=== PATIENT | male | born 1985 | race African-American/Black ===

== ENCOUNTER 2016-12-22 18:04 | Emergency (ER) | payer OTHER ==
[~2016-12-22] VITALS: Ht 160 cm; Wt 69.0 kg
[2016-12-22 18:12] VITALS: BP 114/61; PULSE 89; RESP 20; TEMP 99.2; O2SAT 98
--- NOTE | 2016-12-22 18:17 | PD ---
HPI Chief Complaint: fever Time Seen by Provider: 18:16 Travel History International Travel<30 days: No Contact w/Intl Traveler<30days: No Traveled to known affect area: No History of Present Illness HPI 31-year-old male was sent from the group home with history of fever and tachycardia. Patient is a TBI and anoxic brain injury, he is vent dependent on trach and has a J-tube for feeding. His mother is here who is a great historian and is very close in taking care of the patient. She says that for past 1 week she has noticed that there is some feed is coming out of his trach as well as his mouth. She had let the nursing staff at the group home know. They have been trying to alternate the feeds and changes positions but this afternoon he had a fever with a temperature 102.5 and heart rate in 170s. They gave him Tylenol and then sent him here. In the past she has had pneumonia as well as UTI. He is well-known to the department. [facility] Past Medical History Narrative Medical List of his past medical, surgical, social and family history is reviewed from the nursing note. Social History Tobacco Use: No Allergies-Medications (Allergen,Severity, Reaction): Coded Allergies: Haldol (Verified Adverse Reaction, Severe, Seizures, 12/22/16) Comments List of his allergies reviewed from the nursing note. Reported Meds & Prescriptions Reported Meds & Active Scripts Active Augmentin-400 Liq (Amoxicillin-Clavulanate Liq) 400-57 Mg/5 Ml Susp 875 Mg PEG Q12HR 7 Days 300 mg (3.75 mL). Take for 10 days. Reported Potassium Acetate 2 Meq/Ml Inj 20 Meq G-TUBE BID Claritin Liq (Loratadine) 5 Mg/5 Ml Liq 5 Mg G-TUBE DAILY Baclofen 20 Mg Tab 20 Mg G-TUBE TID Pepcid (Famotidine) 20 Mg Tab 40 Mg G-TUBE DAILY Eliquis (Apixaban) 5 Mg Tab 5 Mg G-TUBE BID Ativan (Lorazepam) 1 Mg Tab 1 Mg G-TUBE Q4H PRN Keppra (Levetiracetam) 1,000 Mg Tab 1,000 Mg G-TUBE BID Narrative Medication List of his home medications reviewed from the nursing Review of Systems Except as stated in HPI: all other systems reviewed are Neg Physical Exam Narrative GENERAL: Baseline mental status which is mostly nonreactive, trach and G-tube SKIN: Focused skin assessment warm/dry. HEAD: Atraumatic. Normocephalic. EYES: Pupils equal and round. No scleral icterus. No injection or drainage. ENT: No nasal bleeding or discharge. Mucous membranes pink and moist. NECK: Trachea midline. No JVD. Trach CARDIOVASCULAR: Regular rate and rhythm. No murmur appreciated. RESPIRATORY: No accessory muscle use. Clear to auscultation. Breath sounds equal bilaterally. GASTROINTESTINAL: Abdomen soft, non-tender, nondistended. Hepatic and splenic margins not palpable. G-tube MUSCULOSKELETAL: Nonverbal, nonresponsive, bedbound, TBI NEUROLOGICAL: Awake and alert. No obvious cranial nerve deficits. Motor grossly within normal limits. Normal speech. PSYCHIATRIC: Appropriate mood and affect; insight and judgment normal. Data Data Last Documented VS Vital Signs Date Time Temp Pulse Resp B/P Pulse Ox O2 Delivery O2 Flow Rate FiO2 12/23/16 08:09 98.4 63 28 106/52 99 T-piece 12/23/16 08:02 5.00 28 Orders Complete Blood Count With Diff (12/22/16 18:35) Comprehensive Metabolic Panel (12/22/16 18:35) Lactic Acid Sepsis Protocol (12/22/16 18:35) Urinalysis - C+S If Indicated (12/22/16 18:35) Blood Culture (12/22/16 18:35) Chest, Single Ap (12/22/16 18:35) Blood Glucose (12/22/16 18:35) Ecg Monitoring (12/22/16 18:35) Iv Access Insert/Monitor (12/22/16 18:35) Oximetry (12/22/16 18:35) Oxygen Administration (12/22/16 18:35) Vancomycin Inj (Vancomycin Inj) (12/22/16 18:35) Piperacil-Tazo 4.5 Gm Premix (Zosyn 4.5 (12/22/16 18:35) Sodium Chlor 0.9% 1000 Ml Inj (Ns 1000 M (12/22/16 19:00) Urine Culture (12/22/16 18:25) Tube, Trach Cuffed Fen: #8 Ea (12/22/16 20:09) Ct Abd/Pel W Iv Contrast(Rout) (12/22/16 20:55) Iohexol 350 Inj (Omnipaque 350 Inj) (12/22/16 21:50) Labs Laboratory Tests Test 12/22/16 12/22/16 18:25 18:45 Urine Color YELLOW Urine Turbidity HAZY Urine pH 6.5 Urine Specific [place] 1.022 Urine Protein 30 mg/dL Urine Glucose (UA) NEG mg/dL Urine Ketones NEG mg/dL Urine Occult Blood NEG Urine Nitrite NEG Urine Bilirubin NEG Urine Urobilinogen 2.0 MG/DL Urine Leukocyte Esterase NEG Urine RBC 2 /hpf Urine WBC 2 /hpf Urine Squamous Epithelial 1 /hpf Cells Urine Amorphous Sediment RARE Urine Bacteria RARE /hpf Urine Hyaline Casts 19 /lpf Urine Mucus FEW /lpf Microscopic Urinalysis Comment CATH-CULTURE IND Lactic Acid Level 1.7 mmol/L White Blood Count 11.1 TH/MM3 Red Blood Count 5.44 MIL/MM3 Hemoglobin 16.7 GM/DL Hematocrit 48.6 % Mean Corpuscular Volume 89.4 FL Mean Corpuscular Hemoglobin 30.8 PG Mean Corpuscular Hemoglobin 34.4 % Concent Red Cell Distribution Width 13.0 % Platelet Count 231 TH/MM3 Mean Platelet Volume 10.7 FL Neutrophils (%) (Auto) 78.9 % Lymphocytes (%) (Auto) 9.9 % Monocytes (%) (Auto) 11.0 % Eosinophils (%) (Auto) 0.0 % Basophils (%) (Auto) 0.2 % Neutrophils # (Auto) 8.8 TH/MM3 Lymphocytes # (Auto) 1.1 TH/MM3 Monocytes # (Auto) 1.2 TH/MM3 Eosinophils # (Auto) 0.0 TH/MM3 Basophils # (Auto) 0.0 TH/MM3 CBC Comment DIFF FINAL Differential Comment Sodium Level 136 MEQ/L Potassium Level 4.4 MEQ/L Chloride Level 101 MEQ/L Carbon Dioxide Level 23.9 MEQ/L Anion Gap 11 MEQ/L Blood Urea Nitrogen 14 MG/DL Creatinine 1.46 MG/DL Estimat Glomerular Filtration 69 ML/MIN Rate Random Glucose 98 MG/DL Calcium Level 9.3 MG/DL Total Bilirubin 0.3 MG/DL Aspartate Amino Transf 28 U/L (AST/SGOT) Alanine Aminotransferase 72 U/L (ALT/SGPT) Alkaline Phosphatase 122 U/L Total Protein 8.4 GM/DL Albumin 3.9 GM/DL [facility] Medical Decision Making Medical Screen Exam Complete: Yes Emergency Medical Condition: Yes Medical Record Reviewed: Yes Differential Diagnosis Sepsis, pneumonia, UTI Narrative Course 7:20 PM my suspicion is really high for aspiration pneumonia. Sepsis workup has been started. Patient has been given IV fluid and antibiotic as per sepsis protocol. Critical Care Narrative Aggregate critical care time was 30 minutes. Time to perform other separately billable procedures was not included in the critical care time. My time did not include minutes spent treating any other patients simultaneously or on activities that did not directly contribute to the patient's treatment. The services I provided to this patient were to treat and/or prevent clinically significant deterioration that could result in: Sepsis protocol I provided critical care services requiring my management, as noted below: Chart data review, documentation time, medication orders and management, vital sign assessments/reviewing monitor data, ordering and reviewing lab tests, ordering and interpreting/reviewing x-rays and diagnostic studies, care of the patient and discussion of the patient with the admitting physicians. Procedures Procedure Narrative Emergency department US guided peripheral IV was performed with patient consent. Linear probe was used in the transverse views of the peripheral vein to assist with vascular access. Left wrist IV was established with a 20-gauge catheter. EKG Prior to Arrival: No Scripts Amoxicillin-Clavulanate Liq (Augmentin-400 Liq)400-57 Mg/5 Ml [id number] Mg PEG Q12HR 7 Days Ref 0 300 mg (3.75 mL). Take for 10 days. Prov:Ana Rosa Schmidt MD 12/22/16 Vonda Pandya MD Dec 22, 2016 18:17
[2016-12-22] MEDS ORDERED: FAMO1TAB37 G-TUBE (18:25)
[2016-12-22] MEDS ORDERED: LORA-474 G-TUBE (18:25)
[2016-12-22] MEDS ORDERED: KEPP10002 G-TUBE (18:25)
[2016-12-22] MEDS ORDERED: APIX5TAB G-TUBE (18:25)
[2016-12-22 18:32] VITALS: O2SAT 100
[2016-12-22] MEDS ORDERED: CLAR5SYP2 G-TUBE (18:32)
[2016-12-22] MEDS ORDERED: [UNRECOGNIZED DRUG - CODE] G-TUBE (18:32)
[2016-12-22] MEDS ORDERED: BACL20TA G-TUBE (18:32)
[2016-12-22] MEDS ORDERED: PIPERACIL-TAZO 4.5 GM PREMIX 100 ML IV STA (18:35)
[2016-12-22] MEDS ORDERED: VANCOMYCIN INJ 1,000 MG in SODIUM CHLOR 0.9% 250 ML INJ 250 ML IV STA (18:35)
[2016-12-22 18:41] VITALS: RESP 20; O2SAT 99
[2016-12-22] MEDS ORDERED: SODIUM CHLOR 0.9% 1000 ML INJ 1,000 ML IV ONE (19:00)
--- NOTE | 2016-12-22 19:09 | RADRPT ---
EXAM DATE/TIME: 12/22/2016 18:41 [facility] COMPARISON: No previous studies available for comparison. INDICATIONS : Shortness of breath. MEDICAL HISTORY : None. SURGICAL HISTORY : Tracheostomy. ENCOUNTER: Initial ACUITY: 1 day PAIN SCORE: 0/10 LOCATION: Bilateral chest FINDINGS: Underinflated AP view of the chest demonstrates cardiac silhouette size is at the upper limits for no rmal. Tracheostomy overlies tracheal air shadow. Lungs are underinflated with likely atelectasis at t he bases. No effusion or pneumothorax is visualized. Bones and soft tissues demonstrate no acute find ing. CONCLUSION: Underinflated examination with atelectasis at the lung bases. Otherwise, no acute finding is identifi ed. Santo Benites MD on December 22, 2016 at 19:06 Board Certified Radiologist. This report was verified electronically.
--- NOTE | 2016-12-22 19:23 | PD ---
Data Data Last Documented VS Vital Signs Date Time Temp Pulse Resp B/P Pulse Ox O2 Delivery O2 Flow Rate FiO2 12/22/16 20:55 59 15 106/57 100 Trach Collar 6 12/22/16 18:32 28 12/22/16 18:12 99.2 Orders Complete Blood Count With Diff (12/22/16 18:35) Comprehensive Metabolic Panel (12/22/16 18:35) Lactic Acid Sepsis Protocol (12/22/16 18:35) Urinalysis - C+S If Indicated (12/22/16 18:35) Blood Culture (12/22/16 18:35) Chest, Single Ap (12/22/16 18:35) Blood Glucose (12/22/16 18:35) Ecg Monitoring (12/22/16 18:35) Iv Access Insert/Monitor (12/22/16 18:35) Oximetry (12/22/16 18:35) Oxygen Administration (12/22/16 18:35) Vancomycin Inj (Vancomycin Inj) (12/22/16 18:35) Piperacil-Tazo 4.5 Gm Premix (Zosyn 4.5 (12/22/16 18:35) Vascular Access Team Consult/P PRN (12/22/16 18:35) Vascular Poc Ultrasound (12/22/16 ) Sodium Chlor 0.9% 1000 Ml Inj (Ns 1000 M (12/22/16 19:00) Urine Culture (12/22/16 18:25) Tube, Trach Cuffed Fen: #8 Ea (12/22/16 20:09) Ct Abd/Pel W Iv Contrast(Rout) (12/22/16 20:55) Iohexol 350 Inj (Omnipaque 350 Inj) (12/22/16 21:50) Labs Laboratory Tests Test 12/22/16 12/22/16 18:25 18:45 Urine Color YELLOW Urine Turbidity HAZY Urine pH 6.5 Urine Specific [place] 1.022 Urine Protein 30 mg/dL Urine Glucose (UA) NEG mg/dL Urine Ketones NEG mg/dL Urine Occult Blood NEG Urine Nitrite NEG Urine Bilirubin NEG Urine Urobilinogen 2.0 MG/DL Urine Leukocyte Esterase NEG Urine RBC 2 /hpf Urine WBC 2 /hpf Urine Squamous Epithelial 1 /hpf Cells Urine Amorphous Sediment RARE Urine Bacteria RARE /hpf Urine Hyaline Casts 19 /lpf Urine Mucus FEW /lpf Microscopic Urinalysis Comment CATH-CULTURE IND Lactic Acid Level 1.7 mmol/L White Blood Count 11.1 TH/MM3 Red Blood Count 5.44 MIL/MM3 Hemoglobin 16.7 GM/DL Hematocrit 48.6 % Mean Corpuscular Volume 89.4 FL Mean Corpuscular Hemoglobin 30.8 PG Mean Corpuscular Hemoglobin 34.4 % Concent Red Cell Distribution Width 13.0 % Platelet Count 231 TH/MM3 Mean Platelet Volume 10.7 FL Neutrophils (%) (Auto) 78.9 % Lymphocytes (%) (Auto) 9.9 % Monocytes (%) (Auto) 11.0 % Eosinophils (%) (Auto) 0.0 % Basophils (%) (Auto) 0.2 % Neutrophils # (Auto) 8.8 TH/MM3 Lymphocytes # (Auto) 1.1 TH/MM3 Monocytes # (Auto) 1.2 TH/MM3 Eosinophils # (Auto) 0.0 TH/MM3 Basophils # (Auto) 0.0 TH/MM3 CBC Comment DIFF FINAL Differential Comment Sodium Level 136 MEQ/L Potassium Level 4.4 MEQ/L Chloride Level 101 MEQ/L Carbon Dioxide Level 23.9 MEQ/L Anion Gap 11 MEQ/L Blood Urea Nitrogen 14 MG/DL Creatinine 1.46 MG/DL Estimat Glomerular Filtration 69 ML/MIN Rate Random Glucose 98 MG/DL Calcium Level 9.3 MG/DL Total Bilirubin 0.3 MG/DL Aspartate Amino Transf 28 U/L (AST/SGOT) Alanine Aminotransferase 72 U/L (ALT/SGPT) Alkaline Phosphatase 122 U/L Total Protein 8.4 GM/DL Albumin 3.9 GM/DL [facility] Medical Record Reviewed: Yes Supervised Visit with SHANE: No Interpretation(s) Last Impressions Abdomen/Pelvis CT 12/22/[id number] Signed Impressions: Service Date/Time: Thursday, December 22, 2016 21:47 - CONCLUSION: No acute abnormality is identified in the abdomen or pelvis. Santo Benites MD Chest X-Ray 12/22/[id number] Signed Impressions: Service Date/Time: Thursday, December 22, 2016 18:41 - CONCLUSION: Underinflated examination with atelectasis at the lung bases. Otherwise, no acute finding is identified. Santo Benites MD Narrative Course During the course of the patients emergency department visit, the patients history, examination, and differential diagnosis were reviewed with the patient. The patient had IV access obtained and blood work sent for analysis. The patient's case is checked out to me by Dr. Pandya. Please see her complete history and physical. The patient came in with a history of tracheostomy and G-tube placement related to a traumatic brain injury, currently residing at a [facility] with recent problems of tube feeds coming out of his trach. Today he had a fever with a MAXIMUM TEMPERATURE of 102.5 promptly if visit to the emergency department. A sepsis workup with possible sources of aspiration pneumonia ensued. The patient was initially provided normal saline a 1 L IV fluid bolus, vancomycin 1 g IV, Zosyn IV. Blood cultures 2 were drawn, lactic acid was drawn. The patients laboratory studies were reviewed and remarkable for a white count of 11.1, hemoglobin 16.7, platelets 231 with neutrophils 78.9, monocytes 11, CMP is remarkable for creatinine 1.46, alkaline phosphatase 122, lactic acid 1.7 , urinalysis shows 30 protein rare bacteria, otherwise unremarkable. Radiology studies were reviewed and remarkable for a chest x-ray that shows an under inflated examination with atelectasis of the lung bases, otherwise no acute findings. CT scan of the abdomen and pelvis again showed no infiltrate on the lower lung [place], no acute abnormality is identified in the abdomen or pelvis. No evidence of obstruction. The patient has been resting comfortably during his emergency department evaluation. Vital signs are stable. Given the patient's fever and the possibility of aspiration, the patient will be treated with antibiotic coverage for possible aspiration pneumonia. The patient is stable for discharge back to his senior care facility. The patient is provided a prescription for Augmentin liquid to be administered through his feeding tube. The patients results and examination findings were discussed with the patient' s mother. The repeat examination is unremarkable and benign. The history, exam , diagnostic testing, and current condition do not suggest any significant pathology to warrant further testing, continued ED treatment, admission, or surgical evaluation at this point. The vital signs have been stable. The patient does not have uncontrollable pain, intractable vomiting, or other significant symptoms. The patient's condition is stable and appropriate for discharge. The patient will pursue further outpatient evaluation with a primary care physician or other designated or consulting physician as indicated in the discharge instructions. The patient's mother expressed understanding and was agreeable with this plan. Diagnosis Primary Impression: Febrile illness Additional Impressions: Suspected respiratory condition in not found after evaluation Aspiration into airway Qualified Code: T17.908A - Aspiration into airway, initial encounter Referrals: Primary Care Physician 2 days Patient Instructions: Fever in Adults (ED), General Instructions Med/Other Pt SpecificInfo: Prescription(s) given Scripts Amoxicillin-Clavulanate Liq (Augmentin-400 Liq)400-57 Mg/5 Ml [id number] Mg PEG Q12HR 7 Days Ref 0 300 mg (3.75 mL). Take for 10 days. Prov:Ana Rosa Schmidt MD 12/22/16 Disposition: 03 DISCHARGE TO SNF Condition: Stable Ana Rosa Schmidt MD Dec 22, 2016 19:23
[2016-12-22 19:56] LABS: AUTOMATED NEUTROPHIL # 8.8 TH/MM3 (1.8-7.7); BASOPHIL % 0.2 % (0.0-2.0); HEMATOCRIT 48.6 % (39.0-51.0); HEMO FLAGS DIFF FINAL; LYMPH % 9.9 % (9.0-44.0); LYMPHOCYTE # 1.1 TH/MM3 (1.0-4.8); MEAN CELL VOLUME 89.4 FL (80.0-100.0); MEAN CORPUSCULAR HEMOGLOBIN 30.8 PG (27.0-34.0); MEAN CORPUSCULAR HGB CONC 34.4 % (32.0-36.0); NEUT % 78.9 % (16.0-70.0); PLATELET COUNT 231 TH/MM3 (150-450); RED BLOOD COUNT 5.44 MIL/MM3 (4.50-5.90); WHITE BLOOD COUNT 11.1 TH/MM3 (4.0-11.0)
[2016-12-22 20:04] LABS: BACTERIA, URINE RARE /hpf; BLOOD, URINE NEG (NEG); GLUCOSE,URINE NEG (NEG); HYALINE CAST, URINE 19 /lpf (RARE); KETONE, URINE NEG (NEG); MUCUS URINE FEW /lpf (OCC); NITRITE,URINE NEG (NEG); PH, URINE 6.5 (5.0-8.5); SQUAMOUS EPITHELIAL CELL URINE 1 /hpf (0-5); URINE COLOR YELLOW (YELLW/STRAW)
[2016-12-22 20:05] LABS: COMMENT (UR) CATH-CULTURE IND; CULTURE IF INDICATED CATH CULTURE IND
[2016-12-22 20:08] VITALS: O2SAT 100
[2016-12-22 20:13] LABS: ANION GAP 11 MEQ/L (5-15); AST (GOT) 28 U/L (15-37); BICARBONATE 23.9 MEQ/L (21.0-32.0); BLOOD UREA NITROGEN 14 MG/DL (7-18); CHLORIDE 101 MEQ/L (98-107); GLOMERULAR FILTRATION RATE 69 ML/MIN (>89); POTASSIUM 4.4 MEQ/L (3.5-5.1); SODIUM (NA) 136 MEQ/L (136-145)
[2016-12-22 20:14] LABS: ALT (GPT) 72 U/L (12-78)
[2016-12-22 20:16] LABS: ALKALINE PHOSPHATASE 122 U/L (45-117); TOTAL BILIRUBIN ADULT 0.3 MG/DL (0.2-1.0)
[2016-12-22 20:55] VITALS: BP 106/57; PULSE 59; RESP 15; O2SAT 100
[2016-12-22] MEDS ORDERED: IOHEXOL 350 MG/ML 10 ML VIAL (for RAD DIAG) IV ONE (21:50)
--- NOTE | 2016-12-22 22:23 | RADRPT ---
EXAM DATE/TIME: 12/22/2016 21:47 [facility] COMPARISON: No previous studies available for comparison. INDICATIONS : Fever today. IV CONTRAST: 100 cc Omnipaque 350 (iohexol) IV ORAL CONTRAST: No oral contrast ingested. RADIATION DOSE: 10.89 CTDIvol (mGy) MEDICAL HISTORY : Seizures. Anoxic brain injury. SURGICAL HISTORY : Tracheostomy. Gastromy. ENCOUNTER: Initial ACUITY: 1 day PAIN SCALE: 3/10 LOCATION: Bilateral abdomen TECHNIQUE: Volumetric scanning of the abdomen and pelvis was performed. Using automated exposure control and ad justment of the mA and/or kV according to patient size, radiation dose was kept as low as reasonably achievable to obtain optimal diagnostic quality images. FINDINGS: LOWER LUNGS: The visualized lower lungs are clear. LIVER: Homogeneous density without lesion. There is no dilation of the biliary tree. No calcified gallston es. SPLEEN: Normal size without lesion. PANCREAS: Within normal limits. KIDNEYS: Normal in size and shape. There is no mass, stone or hydronephrosis. ADRENAL GLANDS: Within normal limits. VASCULAR: There is no aortic aneurysm. BOWEL/MESENTERY: The stomach, small bowel, and colon demonstrate no acute abnormality. There is no free intraperitone al air or fluid. GJ tube is present. Distal tip of the J-tube is in the proximal jejunum. ABDOMINAL WALL: Within normal limits. RETROPERITONEUM: There is no lymphadenopathy. BLADDER: No wall thickening or mass. REPRODUCTIVE: Within normal limits. INGUINAL: There is no lymphadenopathy or hernia. MUSCULOSKELETAL: No acute abnormality. CONCLUSION: No acute abnormality is identified in the abdomen or pelvis. Santo Benites MD on December 22, 2016 at 22:18 Board Certified Radiologist. This report was verified electronically.
[2016-12-22] MEDS ORDERED: AUGM400S PEG (22:36)
[2016-12-23 08:02] VITALS: O2SAT 98
[2016-12-23 08:09] VITALS: BP 106/52; PULSE 63; RESP 28; TEMP 98.4; O2SAT 99
== END 2016-12-23 09:28 ==
LOC: NEPE 18:04
DX: R50.9 Fever, unspecified (principal); T17.908A Unspecified foreign body in respiratory tract, part unspecified causing other injury, initial encounter; R00.0 Tachycardia, unspecified; Z87.820 Personal history of traumatic brain injury; Z79.899 Other long term (current) drug therapy
CPT/HCPCS: 71010; 74177; 80053; 81001; 83605; 85025; 87040; 87086; 96365; 99291; A7521; J2543; J3370; J7030; J7050; Q9967

== ENCOUNTER 2017-02-21 03:23 | Inpatient (IN) | payer OTHER ==
[2017-02-21] VITALS (20 sets, daily range): BP systolic 141–164; BP diastolic 67–103; PULSE 20–124; RESP 18–36; TEMP 99–101.5; O2SAT 97–100
[~2017-02-21] VITALS: Ht 160 cm; Wt 65.5 kg
[~2017-02-21 03:23] MED LIST: APIX5TAB G-TUBE; AUGM400S PEG; BACL20TA G-TUBE; CLAR5SYP2 G-TUBE; FAMO1TAB37 G-TUBE; KEPP10002 G-TUBE; LORA-474 G-TUBE; [UNRECOGNIZED DRUG - CODE] G-TUBE
[2017-02-21] MEDS ORDERED: PIPERACIL-TAZO 4.5 GM PREMIX 100 ML IV ONE (03:45)
[2017-02-21] MEDS ORDERED: ACETAMINOPHEN 650 MG SUPP RECTAL ONE (03:45)
[2017-02-21] MEDS ORDERED: SODIUM CHLOR 0.9% 1000 ML INJ 1,000 ML IV ONE ×4 (03:45→15:30)
[2017-02-21] MEDS ORDERED: VANCOMYCIN INJ 1,000 MG in SODIUM CHLOR 0.9% 250 ML INJ 250 ML IV ONE (03:45)
--- NOTE | 2017-02-21 03:47 | PD ---
HPI Chief Complaint: Respiratory Symptoms Time Seen by Provider: 03:39 Travel History International Travel<30 days: No Contact w/Intl Traveler<30days: No Traveled to known affect area: No History of Present Illness HPI 31-year-old male with hypoxic encephalopathy, permanent vegetative state who lives in a fpc, trach dependent and G-tube dependent was brought to the emergency room by EMS for copious amount of secretion from the trach. Patient has been in the emergency room multiple times in the past. His mother came soon after patient arrival. As per her patient has been having increased secretion from the trach for past 1 week. Since yesterday he started getting some fever and was started on antibiotic. However tonight his heart rate went up and they decided to send him to the emergency room. Patient is a full code. He has had pneumonia and sepsis in the past. In fact patient was hit in the emergency room few weeks ago for pneumonia. He is tachycardic and the rectal temperature 101.2. PFSH Past Medical History Narrative Medical List of her past medical, surgical, social and family history was reviewed from the nursing note. Anxiety: Yes Diminished Hearing: No Gastrointestinal Disorders: Yes (GASTROSTOMY STATUS ) Hypertension: Yes Neurologic: Yes (ANOXIC BRAIN DAMAGE) Respiratory: Yes (TRACHEOSTOMY STATUS) Seizures: Yes (POST TRAUMATIC SEIZURE) Tetanus Vaccination: Unknown Influenza Vaccination: No Past Surgical History Abdominal Surgery: Yes (GASTROSTOMY) Other Surgery: Yes (TRACHEOSTOMY ) Social History Alcohol Use: No Tobacco Use: No Substance Use: No Allergies-Medications (Allergen,Severity, Reaction): Coded Allergies: haloperidol (Unverified Adverse Reaction, Severe, Seizures, 02/21/17) Comments List of his allergies reviewed from the nursing note. Reported Meds & Prescriptions Reported Meds & Active Scripts Active Reported Tylenol (Acetaminophen) 325 Mg Tab 650 Mg PO Q6H PRN Potassium Chloride Liq (Potassium Chloride) 20 Meq/15 Ml Soln 20 Meq PO BID Oxycodone-Acetaminophen 5-325 mg Tab 1 Tab PO Q6H PRN Metoprolol Tartrate 25 Mg Tab 25 Mg PO BID PRN Duoneb (Ipratropium-Albuterol Neb) 0.5-2.5 Mg/3 Ml Neb 1 Nebule INH DAILY Duoneb (Ipratropium-Albuterol Neb) 0.5-2.5 Mg/3 Ml Neb 1 Nebule INH Q4HR NEB Hyoscyamine (Hyoscyamine Sulfate) 0.125 Mg Tab 0.125 Mg PO Q4H Guaifenesin Liq (Guaifenesin) 100 mg/5 ML Soln 100 Mg PO Q4H PRN Ciloxan Opth Drops (Ciprofloxacin HCl) 0.3% Soln 1 Drop EACH EYE Q4H Bisacodyl EC (Bisacodyl) 5 Mg Tabec 5 Mg PO DAILY PRN Atropine Opth Drops 1% Soln 1 Drop SL Q12HR PRN Ativan (Lorazepam) 0.5 Mg Tab 0.5 Mg PO DAILY PRN Claritin Liq (Loratadine) 5 Mg/5 Ml Liq 5 Mg G-TUBE DAILY Baclofen 20 Mg Tab 20 Mg G-TUBE TID Pepcid (Famotidine) 20 Mg Tab 40 Mg G-TUBE DAILY Eliquis (Apixaban) 5 Mg Tab 5 Mg G-TUBE BID Ativan (Lorazepam) 1 Mg Tab 1 Mg G-TUBE Q4H PRN Keppra (Levetiracetam) 1,000 Mg Tab 1,000 Mg G-TUBE BID Narrative Medication List of his home medications reviewed from the nursing note. Review of Systems Except as stated in HPI: all other systems reviewed are Neg Physical Exam Narrative GENERAL: Nonverbal, permanent vegetative state, diaphoretic SKIN: Warm and Diaphoretic HEAD: Atraumatic. Normocephalic. EYES: Pupils equal and round. No scleral icterus. No injection or drainage. ENT: No nasal bleeding or discharge. Mucous membranes pink and moist. NECK: Trachea midline. No JVD. Tracheostomy tube with copious brownish secretions CARDIOVASCULAR: Regular rate and rhythm. No murmur appreciated. RESPIRATORY: No accessory muscle use. Clear to auscultation. Breath sounds equal bilaterally. GASTROINTESTINAL: Abdomen soft, non-tender, nondistended. Hepatic and splenic margins not palpable. G-tube MUSCULOSKELETAL: No obvious deformities. No clubbing. No cyanosis. No edema. NEUROLOGICAL: GCS of 3. Nonverbal, contracture of all 4 extremities PSYCHIATRIC: Unable to assess Data Data Last Documented VS Vital Signs Date Time Temp Pulse Resp B/P (MAP) Pulse Ox O2 Delivery O2 Flow Rate FiO2 02/21/17 04:40 106 36 141/77 (98) 98 Blow-by 7 02/21/17 04:05 40 Orders Orders Complete Blood Count With Diff (02/21/17 03:39) Comprehensive Metabolic Panel (02/21/17 03:39) Lactic Acid Sepsis Protocol (02/21/17 03:39) Urinalysis - C+S If Indicated (02/21/17 03:39) Blood Culture (02/21/17 03:39) Chest, Single Ap (02/21/17 03:39) Blood Glucose (02/21/17 03:39) Ecg Monitoring (02/21/17 03:39) Iv Access Insert/Monitor (02/21/17 03:39) Oximetry (02/21/17 03:39) Oxygen Administration (02/21/17 03:39) Sputum Culture And Gram Stain (02/21/17 03:39) Piperacil-Tazo 4.5 Gm Premix (Zosyn 4.5 (02/21/17 03:45) Vancomycin Inj (Vancomycin Inj) (02/21/17 03:45) Sodium Chlor 0.9% 1000 Ml Inj (Ns 1000 M (02/21/17 03:45) Sodium Chlor 0.9% 1000 Ml Inj (Ns 1000 M (02/21/17 03:45) Sodium Chlor 0.9% 1000 Ml Inj (Ns 1000 M (02/21/17 03:45) Acetaminophen Supp (Tylenol Supp) (02/21/17 03:45) Urinary Catheter Insert/Apply (02/21/17 04:05) Admit Order (Ed Use Only) (02/21/17 04:49) Labs Laboratory Tests Test 02/21/17 03:45 02/21/17 04:10 White Blood Count 14.5 TH/MM3 Red Blood Count 5.15 MIL/MM3 Hemoglobin 16.3 GM/DL Hematocrit 47.4 % Mean Corpuscular Volume 92.0 FL Mean Corpuscular Hemoglobin 31.7 PG Mean Corpuscular Hemoglobin Concent 34.5 % Red Cell Distribution Width 12.9 % Platelet Count 266 TH/MM3 Mean Platelet Volume 11.1 FL Neutrophils (%) (Auto) 84.5 % Lymphocytes (%) (Auto) 8.9 % Monocytes (%) (Auto) 6.3 % Eosinophils (%) (Auto) 0.1 % Basophils (%) (Auto) 0.2 % Neutrophils # (Auto) 12.2 TH/MM3 Lymphocytes # (Auto) 1.3 TH/MM3 Monocytes # (Auto) 0.9 TH/MM3 Eosinophils # (Auto) 0.0 TH/MM3 Basophils # (Auto) 0.0 TH/MM3 CBC Comment DIFF FINAL Differential Comment Blood Urea Nitrogen 11 MG/DL Creatinine 1.30 MG/DL Random Glucose 117 MG/DL Total Protein 8.6 GM/DL Albumin 4.0 GM/DL Calcium Level 9.3 MG/DL Alkaline Phosphatase 117 U/L Aspartate Amino Transf (AST/SGOT) 45 U/L Alanine Aminotransferase (ALT/SGPT) 106 U/L Total Bilirubin 0.3 MG/DL Sodium Level 141 MEQ/L Potassium Level 3.6 MEQ/L Chloride Level 104 MEQ/L Carbon Dioxide Level 24.1 MEQ/L Anion Gap 13 MEQ/L Estimat Glomerular Filtration Rate 79 ML/MIN Lactic Acid Level 4.1 mmol/L Urine Color YELLOW Urine Turbidity CLEAR Urine pH 6.5 Urine Specific [place] 1.050 Urine Protein 30 mg/dL Urine Glucose (UA) NEG mg/dL Urine Ketones TRACE mg/dL Urine Occult Blood NEG Urine Nitrite NEG Urine Bilirubin NEG Urine Urobilinogen 2.0 MG/DL Urine Leukocyte Esterase NEG Urine RBC 2 /hpf Urine WBC 2 /hpf Urine Renal Epithelial Cells <1 /hpf Urine Mucus FEW /lpf Microscopic Urinalysis Comment CULT NOT INDICATED MDM Medical Decision Making Medical Screen Exam Complete: Yes Emergency Medical Condition: Yes Medical Record Reviewed: Yes Differential Diagnosis Sepsis, pneumonia, tracheitis, UTI Narrative Course 4:36 AM blood test results are back. Patient has leukocytosis as well as lactic acidosis. I have ordered cultures from the trach secretion. Fluid and antibiotic has been given as per sepsis protocol. He'll need to be hospitalized. Awaiting for the integration director to call back since patient is a full code. Critical Care Narrative Aggregate critical care time was 30 minutes. Time to perform other separately billable procedures was not included in the critical care time. My time did not include minutes spent treating any other patients simultaneously or on activities that did not directly contribute to the patient's treatment. The services I provided to this patient were to treat and/or prevent clinically significant deterioration that could result in: Sepsis, sepsis protocol I provided critical care services requiring my management, as noted below: Chart data review, documentation time, medication orders and management, vital sign assessments/reviewing monitor data, ordering and reviewing lab tests, ordering and interpreting/reviewing x-rays and diagnostic studies, care of the patient and discussion of the patient with the admitting physicians. Procedures EKG Prior to Arrival: No Physician Communication Physician Communication Dr. Rivers Diagnosis Primary Impression: Sepsis Additional Impressions: Tracheitis Hypoxic encephalopathy Permanent vegetative state Admitting Information Admitting Physician Requests: Admit Vonda Pandya MD Feb 21, 2017 03:47
[2017-02-21 04:07] LABS: AUTOMATED NEUTROPHIL # 12.2 TH/MM3 (1.8-7.7); BASOPHIL % 0.2 % (0.0-2.0); EOSINOPHIL % 0.1 % (0.0-4.0); HEMATOCRIT 47.4 % (39.0-51.0); HEMO FLAGS DIFF FINAL; LYMPH % 8.9 % (9.0-44.0); LYMPHOCYTE # 1.3 TH/MM3 (1.0-4.8); MEAN CORPUSCULAR HEMOGLOBIN 31.7 PG (27.0-34.0); MEAN CORPUSCULAR HGB CONC 34.5 % (32.0-36.0); MONO % 6.3 % (0.0-8.0); NEUT % 84.5 % (16.0-70.0); PLATELET COUNT 266 TH/MM3 (150-450); RED BLOOD COUNT 5.15 MIL/MM3 (4.50-5.90); RED CELL DISTRIBUTION WIDTH 12.9 % (11.6-17.2); WHITE BLOOD COUNT 14.5 TH/MM3 (4.0-11.0)
[2017-02-21 04:21] LABS: ALT (GPT) 106 U/L (12-78); ANION GAP 13 MEQ/L (5-15); AST (GOT) 45 U/L (15-37); BICARBONATE 24.1 MEQ/L (21.0-32.0); BLOOD UREA NITROGEN 11 MG/DL (7-18); CHLORIDE 104 MEQ/L (98-107); GLOMERULAR FILTRATION RATE 79 ML/MIN (>89); POTASSIUM 3.6 MEQ/L (3.5-5.1); SODIUM (NA) 141 MEQ/L (136-145)
[2017-02-21 04:23] LABS: ALKALINE PHOSPHATASE 117 U/L (45-117); TOTAL BILIRUBIN ADULT 0.3 MG/DL (0.2-1.0)
[2017-02-21 04:51] LABS: BLOOD, URINE NEG (NEG); GLUCOSE,URINE NEG (NEG); KETONE, URINE TRACE mg/dL (NEG); MUCUS URINE FEW /lpf (OCC); NITRITE,URINE NEG (NEG); PH, URINE 6.5 (5.0-8.5); RENAL EPITHELIAL CELLS <1 /hpf; URINE COLOR YELLOW (YELLW/STRAW)
[2017-02-21 04:52] LABS: COMMENT (UR) CULT NOT INDICATED; CULTURE IF INDICATED CULT NOT INDICATED
[2017-02-21] MEDS ORDERED: POTA10SO12 PO (04:56)
[2017-02-21] MEDS ORDERED: METO25TA3 PO (04:56)
[2017-02-21] MEDS ORDERED: HYOS0.128 PO (04:56)
[2017-02-21] MEDS ORDERED: CILO0.3S EACH EYE (04:56)
[2017-02-21] MEDS ORDERED: IPRASOL INH ×2 (04:56)
[2017-02-21] MEDS ORDERED: GUAI100S7 PO (04:56)
[2017-02-21] MEDS ORDERED: TYLE325T PO (04:56)
[2017-02-21] MEDS ORDERED: ATRO1SOL11 SL (04:56)
[2017-02-21] MEDS ORDERED: LORA-392 PO (04:56)
[2017-02-21] MEDS ORDERED: FLEE5TAB PO (04:56)
[2017-02-21] MEDS ORDERED: OXYC1TAB63 PO (04:56)
--- NOTE | 2017-02-21 05:06 | RADRPT ---
EXAM DATE/TIME: 02/21/2017 04:42 [facility] COMPARISON: CHEST SINGLE AP, December 22, 2016, 18:41. INDICATIONS : Fever, Evalaute trach MEDICAL HISTORY : None. SURGICAL HISTORY : Tracheostomy ENCOUNTER: Initial ACUITY: 1 day PAIN SCORE: Non-responsive. LOCATION: Bilateral chest FINDINGS: A single view of the chest demonstrates the lungs to be symmetrically aerated without evidence of mas s, infiltrate or effusion. Heart size is borderline prominent a well compensated. Tracheostomy tube i s stable in position with the tip just above the clavicular heads. Osseous structures are intact. CONCLUSION: 1. Lungs are clear. 2. Heart size is borderline prominent but well compensated. Beny Whalen MD on February 21, 2017 at 5:04 Board Certified Radiologist. This report was verified electronically.
[2017-02-21 05:37] LABS: BLOOD GAS CARBOXYHEMOGLOBIN 0.7 % (0-4); BLOOD GAS HCO3 23 mmol/L (22-26); BLOOD GAS METHEMOGLOBIN 0.6 % (0-2); BLOOD GAS O2 HGB SATURATION 97 % (90-100); BLOOD GAS OXYGEN CONTENT 20.5 Vol % (12.0-20.0); BLOOD GAS PCO2 35 mmHg (38-42); BLOOD GAS PO2 123 mmHG (61-120); BLOOD GAS TOTAL HGB 14.8 G/DL (12.0-16.0); CRITICAL VALUE NO; OXYGEN DEVICE TRACH COLLAR; TEMP CORR TO 98.6
[2017-02-21 05:38] LABS: DRAW SITE RT RADIAL; FIO2 40 %; LITER FLOW 6 L/M; NUMBER OF ARTERIAL PUNCTURES 1; STAT YES; ULNAR PULSE PRESENT
[2017-02-21 06:00] LABS: LACTIC ACID GHOST NOT REPORTABLE
[2017-02-21] MEDS ORDERED: LORazepam 2 MG/ML VIAL IV PUSH ONE (06:00)
[2017-02-21] MEDS ORDERED: metroNIDAZOLE 500 MG INJ 100 ML IV SCH (06:00)
[2017-02-21] MEDS ORDERED: SODIUM CHLOR 0.9% 1000 ML INJ 1,000 ML IV SCH (06:01)
--- NOTE | 2017-02-21 06:12 | HHI.HP ---
[facility] Service Critical Care Medicine Primary Care Physician Unknown Admission Diagnosis sepsis, tracheitis, hypoxic encephalopathy Diagnosis: (1) History of DVT (deep vein thrombosis) Diagnosis: Secondary (2) Nausea & vomiting Diagnosis: Principal (3) Diabetes mellitus Diagnosis: Principal (4) Dyslipidemia Diagnosis: Secondary (5) Hypertension Diagnosis: Secondary (6) History of pancreatitis Diagnosis: Secondary (7) Leukocytosis Diagnosis: Principal (8) Elevated LFTs Diagnosis: Principal (9) Hypoxic encephalopathy Diagnosis: Secondary (10) Permanent vegetative state Diagnosis: Secondary (11) Sepsis Diagnosis: Principal (12) Aspiration into airway Diagnosis: Principal (13) Septic shock Diagnosis: Principal Travel History International Travel<30 Days: No Contact w/Intl Traveler <30 Da: No Traveled to Known Affected Are: No Sepsis Criteria SIRS Criteria (2 or more): RR > 20 or PaCO2 < 32, WBC > 77024, < 4000 or > 10 % bands Sepsis Criteria (SIRS+source): Infect source susp/known Severe Sepsis (+one): Lactate >2 Septic Shock Criteria: Lactic acid >=4 History of Present Illness 31-year-old male. Resident of [facility] [employer] [facility] or rehabilitation. Past medical history includes anoxic brain injury 03/21 Temovate due to Haldol administration, recurrent aspiration pneumoniaMDRO positive MRSA positive ESBL positive Escherichia coli in past, hypertension, dyslipidemia, history of pseudocyst/necrotizing, diabetes mellitus presents with a one-week history of nausea/vomiting according to his mother at this nursing facility. He was also recently diagnosed with a fever started on amoxicillin Upon presentation to the ED, patient was noted of temperature 100.2. Leukocytosis 14.5 and elevated transaminases. Lactic acid 4.1. Received 3 L normal saline. Start empirically on piperacillin/tazobactam and vancomycin. Pancultured. Chest x-ray revealed no acute findings. CT abdomen/pelvis and amylase lipase all pending. Upon presentation the floor, patient was tachycardic in acute cluster distress. Tracheostomy was exchanged for an 8.0-6.0 Shiley. Patient is currently sedated on the ventilator on Midazolam And fentanyl drips. Review of Systems ROS Limitations: Clinical Condition, Altered Mental Status, Unresponsive Past Family Social History Allergies: Coded Allergies: haloperidol (Unverified Adverse Reaction, Severe, Seizures, 02/21/17) Past Medical History Chronic tracheostomy Chronic NOAC use History of left upper extremity DVT Recurrent aspiration pneumonia Hypertension Dyslipidemia History of pancreatitis/pseudocyst Diabetes mellitus Chronic narcotic use Chronic muscle relaxant use Past Surgical History Status post tracheostomy with revision by Dr. Walls 2016 Status post GJ tube Reported Medications Augmentin-400 Liq (Amoxicillin-Clavulanate Liq) 400-57 Mg/5 Ml Susp 875 Mg PEG Q12HR 7 Days 300 mg (3.75 mL). Take for 10 days. Reported Potassium Acetate 2 Meq/Ml Inj 20 Meq G-TUBE BID Claritin Liq (Loratadine) 5 Mg/5 Ml Liq 5 Mg G-TUBE DAILY Baclofen 20 Mg Tab 20 Mg G-TUBE TID Pepcid (Famotidine) 20 Mg Tab 40 Mg G-TUBE DAILY Eliquis (Apixaban) 5 Mg Tab 5 Mg G-TUBE BID Ativan (Lorazepam) 1 Mg Tab 1 Mg G-TUBE Q4H PRN Keppra (Levetiracetam) 1,000 Mg Tab 1,000 Mg G-TUBE BID Active Ordered Medications Reviewed in EMR Family History Mother is alive with no medical problems. Social History No tobacco, alcohol or IV drug use Physical Exam Vital Signs Vital Signs Date Time Temp Pulse Resp B/P Pulse Ox O2 Delivery O2 Flow Rate FiO2 02/21/17 04:40 106 36 141/77 98 Blow-by 7 02/21/17 04:05 97 Trach Collar 6.00 40 02/21/17 03:50 98 Blow-by 15 02/21/17 03:50 36 98 Blow-by 15 02/21/17 03:35 117 36 141/83 99 Blow-by 7 Physical Exam GENERAL: 31-year-old -[place] male, critically ill currently resting in bed ventilator via tracheostomy SKIN: Cool and dry. No rash. HEAD: Atraumatic. Normocephalic. EYES: Pupils equal and round about 3 Mckeon's bilaterally in upward gaze.. No scleral icterus. No injection or drainage. ENT: No nasal bleeding or discharge. Mucous membranes pink and moist. NECK: Trachea midline. No JVD. Thick brown secretions around trach site. Some bright red blood status post tracheostomy exchange CARDIOVASCULAR: Cardiac, RRR. S1, S2 no S4. RESPIRATORY: Coarse breath sounds appreciated throughout. GASTROINTESTINAL: Abdomen soft, non-tender, nondistended. GJ tube in left upper quadrant is clean dry and intact MUSCULOSKELETAL: Contracted. Extremities without difficulty and peripheral edema. Decubitus ulcers NEUROLOGICAL: GCS 8t. Positive cough/gag. Positive corneal reflex. Spontaneously moves but not to command. Laboratory Laboratory Tests Test 02/21/17 02/21/17 02/21/17 03:45 04:10 05:22 White Blood Count 14.5 Red Blood Count 5.15 Hemoglobin 16.3 Hematocrit 47.4 Mean Corpuscular Volume 92.0 Mean Corpuscular Hemoglobin 31.7 Mean Corpuscular Hemoglobin 34.5 Concent Red Cell Distribution Width 12.9 Platelet Count 266 Mean Platelet Volume 11.1 Neutrophils (%) (Auto) 84.5 Lymphocytes (%) (Auto) 8.9 Monocytes (%) (Auto) 6.3 Eosinophils (%) (Auto) 0.1 Basophils (%) (Auto) 0.2 Neutrophils # (Auto) 12.2 Lymphocytes # (Auto) 1.3 Monocytes # (Auto) 0.9 Eosinophils # (Auto) 0.0 Basophils # (Auto) 0.0 CBC Comment DIFF FINAL Differential Comment Sodium Level 141 Potassium Level 3.6 Chloride Level 104 Carbon Dioxide Level 24.1 Anion Gap 13 Blood Urea Nitrogen 11 Creatinine 1.30 Estimat Glomerular Filtration 79 Rate Random Glucose 117 Lactic Acid Level 4.1 Calcium Level 9.3 Total Bilirubin 0.3 Aspartate Amino Transf 45 (AST/SGOT) Alanine Aminotransferase 106 (ALT/SGPT) Alkaline Phosphatase 117 Total Protein 8.6 Albumin 4.0 Urine Color YELLOW Urine Turbidity CLEAR Urine pH 6.5 Urine Specific [place] 1.050 Urine Protein 30 Urine Glucose (UA) NEG Urine Ketones TRACE Urine Occult Blood NEG Urine Nitrite NEG Urine Bilirubin NEG Urine Urobilinogen 2.0 Urine Leukocyte Esterase NEG Urine RBC 2 Urine WBC 2 Urine Renal Epithelial Cells <1 Urine Mucus FEW Microscopic Urinalysis Comment CULT NOT INDICATED Blood Gas Puncture Site RT RADIAL Blood Gas Patient Temperature 98.6 Blood Gas HCO3 23 Blood Gas Base Excess -1.0 Blood Gas Oxygen Saturation 97 Arterial Blood pH 7.43 Arterial Blood Partial 35 Pressure CO2 Arterial Blood Partial 123 Pressure O2 Arterial Blood Oxygen Content 20.5 Arterial Blood 0.7 Carboxyhemoglobin Arterial Blood Methemoglobin 0.6 Blood Gas Hemoglobin 14.8 Oxygen Delivery Device TRACH COLLAR Blood Gas Liter Flow 6 Blood Gas Inspired Oxygen 40 Date/Time Procedure Status Source Growth 02/21/17 03:55 Gram Stain Received Sputum Endotracheal Pending 02/21/17 03:55 Sputum Culture Received Sputum Endotracheal Pending 02/21/17 03:45 Aerobic Blood Culture Received Blood Peripheral Pending 02/21/17 03:45 Anaerobic Blood Culture Received Blood Peripheral Pending Result Diagram: 02/21/17 0345 02/21/17 0345 Imaging Last Impressions Chest X-Ray 02/21/17 0339 Signed Impressions: Service Date/Time: Tuesday, February 21, 2017 04:42 - CONCLUSION: 1. Lungs are clear. 2. Heart size is borderline prominent but well compensated. Beny Whalen MD Assessment and Plan Assessment and Plan Neuro/Psych: History of anoxic brain injury Chronic muscle relaxant use Seizure disorder NOS Continue levetiracetam 1000 mg by PEG tube twice a day Seizure precautions Continue baclofen 20 mg 3 times a day/home medication for spasticity Currently in Versed drip/fentanyl drip for sedation/analgesia while on ventilator via tracheostomy Goal of RA SS -2 Daily sedation vacation Previously on oxycodone/acetaminophen 5/325 every 4 hours when necessary pain CV: Sinus tachycardia History of hypertension History dyslipidemia Lactic acidosis Status post 3 L normal saline in ED. Currently on normal saline at 125 cc an hour Serial lactates until cleared No indication for anti-hypertensives and/or vasopressors at this time. Troponin/CPK pending Resp: Acute respiratory failure secondary to aspiration pneumonia Status post tracheostomy PRVC 18/500/1/5/100 Ventilator bundle Albuterol/ipratropium every 4 hours aerosols with albuterol nebulizers every 2 hours. Dyspnea Wean as clinically indicated Wean FiO2 as clinically indicated Chest x-ray 02/21 reveal no acute cardio pulmonary findings. GI: Nausea/vomiting Elevated transaminases History pancreatitis/pseudocyst Follow-up on CT abdomen/pelvis and amylase/lipase. Patient is currently nothing by mouth Pantoprazole for GI prophylaxis. On famotidine 40 mg daily as nursing facility Docusate sodium/senna twice a day for bowel regimen Repeat transaminases in a.m. G-tube to low intermittent wall suction. Medications per J-tube. : Ospina catheter is in place for accurate I's and O's in a critically ill patient Endo: Diabetes mellitus Sliding-scale insulin with Novulog with Accu-Cheks to maintain euglycemia/low regimen every 6 hours Renal: Creatinine currently within normal limits Monitor urine output Accurate I's and O's Heme: Leukocytosis Follow-up coags. Follow up CBC in AM. Monitor trends ID: History ESBL positive Escherichia coli MDRO positive History MRSA Currently on Zosyn/azithromycin and vancomycin a #1 Blood cultures 2, UA, sputum, Legionella pneumococcal urinary antigen, influenza all pending Infectious disease consul placed MSK: Muscle contractures Continue baclofen 20 mg 3 times a day PT evaluate and treat FEN: Replacing electrolytes as clinically indicated Access - Utilize peripheral IV. Central line if indicated Prophylaxis - GI - pantoprazole - DVT - SCD/resume Apixaban 24 hours status post tracheostomy exchange due to current hemoptysis Critical Care: The total critical care time was 55 minutes. Time to perform other separately billable procedures was not included in the critical care time. Code Status Full code Discussed Condition With Diamond Andersen Mother at bedside. Care plan discussed and all questions answered. Problem Qualifiers (1) Nausea & vomiting: Qualified Code: R11.2 - Nausea and vomiting, intractability of vomiting not specified, unspecified vomiting type (2) Diabetes mellitus: Qualified Code: E11.8 - Type 2 diabetes mellitus with complication, without long-term current use of insulin (3) Leukocytosis: Qualified Code: D72.829 - Leukocytosis, unspecified type (4) Sepsis: Qualified Code: A41.9 - Sepsis, due to unspecified organism (5) Aspiration into airway: Qualified Code: T17.908A - Aspiration into airway, initial encounter Curtis Mantilla MD Feb 21, 2017 06:12
[2017-02-21] MEDS ORDERED: RESP: ALBUTEROL 2.5 MG/3 ML NEB (PRN) INH ×2 (06:15)
[2017-02-21] MEDS ORDERED: LACTULOSE SYRUP 20 GM/30 ML CUP PO PRN (06:15)
[2017-02-21] MEDS ORDERED: BISACODYL 10 MG SUPP RECTAL PRN ×2 (06:15)
[2017-02-21] MEDS ORDERED: SODIUM CHLORIDE 0.9% FLUSH 10 ML FLUSH IV FLUSH PRN ×2 (06:15)
[2017-02-21] MEDS ORDERED: MISCELLANEOUS NURSING INFORMATION XX SCH ×2 (06:15)
[2017-02-21] MEDS ORDERED: Vancomycin Consult Pharmacy 1 EA OTHER SCH (06:15)
[2017-02-21] MEDS ORDERED: CHLORHEXIDINE GLUCONATE 2 % 1 PACK (2 CLOTHS) TOP PRN ×2 (06:15)
[2017-02-21] MEDS ORDERED: SENNOSIDES 8.6 MG TAB PO PRN ×2 (06:15)
[2017-02-21] MEDS ORDERED: ACETAMINOPHEN 325 MG TAB PEG PRN (06:15)
[2017-02-21] MEDS ORDERED: MAGNESIUM HYDROXIDE SUSP 30 ML CUP PO PRN ×2 (06:15)
[2017-02-21] MEDS ORDERED: ONDANSETRON HCL 4 MG/2 ML VIAL IV PRN (06:15)
[2017-02-21] MEDS ORDERED: ACETAMINOPHEN 325 MG TAB PO PRN (06:15)
[2017-02-21] MEDS ORDERED: CEFEPIME INJ 2,000 MG in SODIUM CHLORIDE 0.9% INJ 100 ML IV SCH (06:15)
[2017-02-21] MEDS: ONDANSETRON HCL 4 MG/2 ML VIAL IV PRN (06:58)
[2017-02-21] MEDS ORDERED: ATROPINE SULFATE 1% OPHT SOLN 2 ML BTL SL PRN (07:00)
[2017-02-21] MEDS ORDERED: CIPROFLOXACIN 0.3% OPTH SOLN 2.5 ML BTL EACH EYE SCH (07:00)
[2017-02-21] MEDS: CIPROFLOXACIN 0.3% OPTH SOLN 2.5 ML BTL EACH EYE SCH ×5 (07:00→23:00)
[2017-02-21] MEDS ORDERED: PROPOFOL 1000 MG/100 ML INJ 100 ML ONE (07:12)
[2017-02-21] MEDS ORDERED: MIDAZOLAM 100 MG/100 ML INJ 100 ML IV SCH (07:30)
[2017-02-21] MEDS: SODIUM CHLOR 0.9% 1000 ML INJ 1,000 ML IV SCH ×3 (07:30→22:50)
[2017-02-21] MEDS ORDERED: fentaNYL DRIP 250 ML IV SCH (07:30)
[2017-02-21] MEDS: AZITHROMYCIN INJ 500 MG in SODIUM CHLOR 0.9% 250 ML INJ 250 ML IV SCH (07:35)
[2017-02-21] MEDS ORDERED: LORazepam 2 MG/ML VIAL IV ONE (07:45)
[2017-02-21] MEDS ORDERED: GLUCAGON 1 MG/ML VIAL OTHER PRN (08:15)
[2017-02-21] MEDS ORDERED: GLUCAGON 1 MG/ML VIAL IM PRN ×2 (08:15→08:30)
[2017-02-21] MEDS ORDERED: DEXTROSE 50% IN WATER 50 ML VIAL(D50) IV PRN ×2 (08:15→08:30)
[2017-02-21] MEDS ORDERED: PANTOPRAZOLE SODIUM 40 MG VIAL IV SCH (09:00)
[2017-02-21] MEDS ORDERED: APIXABAN 5 MG TABLET G-TUBE SCH (09:00)
[2017-02-21] MEDS ORDERED: LORATADINE 10 MG TAB PO SCH (09:00)
[2017-02-21] MEDS ORDERED: DOCUSATE SODIUM 50 MG/SENNA 8.6 MG TAB PO SCH (09:00)
[2017-02-21] MEDS ORDERED: SODIUM CHLORIDE 0.9% FLUSH 10 ML FLUSH IV FLUSH SCH (09:00)
[2017-02-21] MEDS ORDERED: levETIRAcetam 500 MG/5 ML UDC NG SCH (09:00)
[2017-02-21] MEDS: DOCUSATE SODIUM 50 MG/SENNA 8.6 MG TAB PO SCH ×2 (09:05→21:08)
[2017-02-21] MEDS: BACLOFEN 20 MG TAB G-TUBE SCH ×3 (09:05→16:15)
[2017-02-21] MEDS: levETIRAcetam 500 MG/5 ML UDC G-TUBE SCH ×2 (09:06→21:08)
[2017-02-21] MEDS: CHLORHEXIDINE 0.12% (ORAL KIT) 15 ML CUP MT SCH ×2 (09:06→21:07)
[2017-02-21] MEDS: PANTOPRAZOLE SODIUM 40 MG VIAL IV SCH (09:07)
[2017-02-21] MEDS: SODIUM CHLORIDE 0.9% FLUSH 10 ML FLUSH IV FLUSH SCH ×2 (09:07→21:08)
[2017-02-21] MEDS: PIPERACIL-TAZO 4.5 GM PREMIX 100 ML IV SCH ×3 (09:08→21:09)
[2017-02-21] MEDS: ARTIFICIAL TEARS OPTH SOLN 15 ML BTL EACH EYE SCH ×3 (09:31→16:17)
[2017-02-21] MEDS: LORATADINE 10 MG TAB G-TUBE SCH (09:31)
[2017-02-21 09:35] LABS: APTT (PATIENT) 25.7 SEC (24.3-30.1); INTERNATIONAL NORMALIZED RATIO 1.2 RATIO; PROTHROMBIN TIME - PATIENT 13.2 SEC (9.8-11.6)
[2017-02-21] MEDS ORDERED: PIPERACIL-TAZO 4.5 GM PREMIX 100 ML IV SCH (10:00)
[2017-02-21] MEDS ORDERED: RESP: ALBUTEROL 2.5 MG/IPRATROPIUM 0.5 MG NEB (SCH) INH (10:00)
[2017-02-21 11:05] LABS: MAGNESIUM 1.8 MG/DL (1.5-2.5)
[2017-02-21] MEDS ORDERED: DIATRIZOATE MEGLUM/DIATRIZOATE SOD 9 ML CUP PO ONE (11:30)
[2017-02-21] MEDS: INSULIN ASPART SUPPLEMENTAL SCALE SQ SCH ×2 (12:00→17:11)
[2017-02-21] MEDS: RESP: ALBUTEROL 2.5 MG/IPRATROPIUM 0.5 MG NEB (SCH) INH ×4 (14:32→23:40)
[2017-02-21 15:25] LABS: BLOOD, URINE NEG (NEG); GLUCOSE,URINE NEG (NEG); HYALINE CAST, URINE 5 /lpf (RARE); KETONE, URINE NEG (NEG); NITRITE,URINE NEG (NEG); PH, URINE 8.5 (5.0-8.5); URINE COLOR YELLOW (YELLW/STRAW)
[2017-02-21 15:32] LABS: COMMENT (UR) CATH-CULTURE IND; CULTURE IF INDICATED CATH CULTURE IND
[2017-02-21] MEDS: MAGNESIUM SULFATE 1 GM PREMIX 100 ML IV SCH ×2 (16:14→16:16)
[2017-02-21] MEDS ORDERED: DEXTROSE 50% IN WATER 50 ML SYRINGE ONE (17:16)
[2017-02-21] MEDS ORDERED: SODIUM PHOSPHATE INJ 30 MMOL in SODIUM CHLOR 0.9% 250 ML INJ 250 ML IV ONE (18:00)
[2017-02-21] MEDS ORDERED: LIDOCAINE HCL 2% 100 MG/5 ML SYRINGE ONE (22:18)
[2017-02-21] MEDS ORDERED: ATROPINE SULFATE 1 MG/10 ML SYRINGE ONE ×2 (22:18→23:33)
[2017-02-21] MEDS ORDERED: EPINEPHrine HCL (1:10,000) 1 MG/10 ML SYRINGE ONE (22:18)
[2017-02-21] MEDS ORDERED: VANCOMYCIN INJ 1,250 MG in SODIUM CHLOR 0.9% 250 ML INJ 250 ML IV SCH (23:00)
--- NOTE | 2017-02-21 23:06 | RADRPT ---
EXAM DATE/TIME: 02/21/2017 22:44 [facility] COMPARISON: No previous studies available for comparison. INDICATIONS : Congestion. RADIATION DOSE: 22.63 CTDIvol (mGy) MEDICAL HISTORY : Non-responsive. SURGICAL HISTORY : Non-responsive. ENCOUNTER: Initial ACUITY: 1 day PAIN SCORE: Non-responsive LOCATION: sinuses TECHNIQUE: Volumetric scanning of the paranasal sinuses was performed. Using automated exposure control and adj ustment of the mA and/or kV according to patient size, radiation dose was kept as low as reasonably a chievable to obtain optimal diagnostic quality images. DICOM format image data is available electro nically for review and comparison. FINDINGS: There is mild mucosal thickening right maxillary sinus, probably small retention cyst. No sinus opaci fication or air-fluid levels. No acute bony abnormalities. Atrophic changes in the brain. CONCLUSION: 1. No evidence for acute sinusitis. Mucosal thickening right maxillary sinus. Stephan Rich MD on February 21, 2017 at 23:02 Board Certified Radiologist. This report was verified electronically.
--- NOTE | 2017-02-21 23:12 | RADRPT ---
EXAM DATE/TIME: 02/21/2017 22:47 [facility] COMPARISON: No previous studies available for comparison. INDICATIONS : Nausea and vomiting. ORAL CONTRAST: Prescribed oral contrast ingested. RADIATION DOSE: 15.24 CTDIvol (mGy) MEDICAL HISTORY : Non-responsive. SURGICAL HISTORY : Non-responsive. ENCOUNTER: Initial ACUITY: 1 day PAIN SCALE: Non-responsive LOCATION: abdomen TECHNIQUE: Volumetric scanning of the abdomen and pelvis was performed. Using automated exposure control and ad justment of the mA and/or kV according to patient size, radiation dose was kept as low as reasonably achievable to obtain optimal diagnostic quality images. DICOM format image data is available electro nically for review and comparison. FINDINGS: There is basilar dependent lung consolidation with air bronchograms. Differential diagnosis includes pneumonia and aspiration. No acute findings in the liver, spleen, adrenals, kidneys or pancreas. There is a feeding gastrojejun ostomy tube present. There is no bowel obstruction. No free air or free fluid. Ospina catheter present in the bladder. No a cute bony abnormalities. CONCLUSION: 1. Basilar dependent lung consolidation with air bronchograms. Differential diagnosis includes pneumo abebe and aspiration. 2. Feeding gastrojejunostomy present. No bowel dilatation or evidence for obstruction. Mild constipat ion. Stephan Rich MD on February 21, 2017 at 23:07 Board Certified Radiologist. This report was verified electronically.
[2017-02-22] VITALS (18 sets, daily range): BP systolic 117–149; BP diastolic 58–65; PULSE 40–102; RESP 18; TEMP 97.7–99.1; O2SAT 93–100
[2017-02-22] MEDS: CIPROFLOXACIN 0.3% OPTH SOLN 2.5 ML BTL EACH EYE SCH ×5 (02:37→23:00)
[2017-02-22] MEDS: PIPERACIL-TAZO 4.5 GM PREMIX 100 ML IV SCH ×4 (02:55→21:27)
[2017-02-22] MEDS: RESP: ALBUTEROL 2.5 MG/IPRATROPIUM 0.5 MG NEB (SCH) INH ×3 (03:53→11:34)
[2017-02-22] MEDS ORDERED: CHLORHEXIDINE GLUCONATE 2 % 1 PACK (2 CLOTHS) TOP SCH (04:00)
[2017-02-22 04:56] LABS: AUTOMATED NEUTROPHIL # 4.1 TH/MM3 (1.8-7.7); BASOPHIL % 0.2 % (0.0-2.0); EOSINOPHIL # 0.1 TH/MM3 (0-0.4); EOSINOPHIL % 1.5 % (0.0-4.0); HEMATOCRIT 32.5 % (39.0-51.0); HEMO FLAGS DIFF FINAL; LYMPH % 21.4 % (9.0-44.0); LYMPHOCYTE # 1.3 TH/MM3 (1.0-4.8); MEAN CELL VOLUME 91.6 FL (80.0-100.0); MEAN CORPUSCULAR HEMOGLOBIN 31.9 PG (27.0-34.0); MEAN CORPUSCULAR HGB CONC 34.9 % (32.0-36.0); MONO % 10.2 % (0.0-8.0); NEUT % 66.7 % (16.0-70.0); PLATELET COUNT 124 TH/MM3 (150-450); RED BLOOD COUNT 3.54 MIL/MM3 (4.50-5.90); RED CELL DISTRIBUTION WIDTH 12.8 % (11.6-17.2); WHITE BLOOD COUNT 6.1 TH/MM3 (4.0-11.0)
[2017-02-22] MEDS: CHLORHEXIDINE GLUCONATE 2 % 1 PACK (2 CLOTHS) TOP SCH (05:03)
[2017-02-22 05:04] LABS: APTT (PATIENT) 31.5 SEC (24.3-30.1); INTERNATIONAL NORMALIZED RATIO 1.1 RATIO; PROTHROMBIN TIME - PATIENT 12.7 SEC (9.8-11.6)
[2017-02-22 05:26] LABS: ALKALINE PHOSPHATASE 68 U/L (45-117); ALT (GPT) 65 U/L (12-78); ANION GAP 8 MEQ/L (5-15); AST (GOT) 28 U/L (15-37); BICARBONATE 24.2 MEQ/L (21.0-32.0); BLOOD UREA NITROGEN 7 MG/DL (7-18); CHLORIDE 113 MEQ/L (98-107); GLOMERULAR FILTRATION RATE 144 ML/MIN (>89); MAGNESIUM 2.3 MG/DL (1.5-2.5); POTASSIUM 3.1 MEQ/L (3.5-5.1); SODIUM (NA) 145 MEQ/L (136-145); TOTAL BILIRUBIN ADULT 0.6 MG/DL (0.2-1.0)
--- NOTE | 2017-02-22 05:30 | RADRPT ---
EXAM DATE/TIME: 02/22/2017 03:56 [facility] COMPARISON: CHEST SINGLE AP, February 21, 2017, 4:42. INDICATIONS : Respiratory failure, Sepsis MEDICAL HISTORY : Sepsis. SURGICAL HISTORY : Tracheostomy ENCOUNTER: Subsequent ACUITY: 2 days PAIN SCORE: Non-responsive. LOCATION: Bilateral chest FINDINGS: A single view of the chest demonstrates a tracheostomy in satisfactory position. Bilateral mostly bas ilar airspace disease is present similar to prior exam. Cardiomegaly. No pneumothorax. CONCLUSION: 1. Mild basilar airspace disease. No significant effusion. No pneumothorax. Stephan Rich MD on February 22, 2017 at 5:27 Board Certified Radiologist. This report was verified electronically.
[2017-02-22] MEDS: INSULIN ASPART SUPPLEMENTAL SCALE SQ SCH ×4 (05:58→23:16)
[2017-02-22] MEDS: SODIUM CHLOR 0.9% 1000 ML INJ 1,000 ML IV SCH (05:59)
--- NOTE | 2017-02-22 07:57 | HHI.CCPN ---
Subjective Remarks/Hospital Course 31-year-old male. Resident of [facility] or rehabilitation. Past medical history includes anoxic brain injury 03/21 Temovate due to Haldol administration, recurrent aspiration pneumoniaMDRO positive MRSA positive ESBL positive Escherichia coli in past, hypertension, dyslipidemia, history of pseudocyst/necrotizing, diabetes mellitus presents with a one-week history of nausea/vomiting according to his mother at this nursing facility. He was also recently diagnosed with a fever started on amoxicillin Upon presentation to the ED, patient was noted of temperature 100.2. Leukocytosis 14.5 and elevated transaminases. Lactic acid 4.1. Received 3 L normal saline. Start empirically on piperacillin/tazobactam and vancomycin. Pancultured. Chest x-ray revealed no acute findings. CT abdomen/pelvis and amylase lipase all pending. Upon presentation the floor, patient was tachycardic in acute respiratory distress. Tracheostomy was exchanged for an 8.0-6.0 Shiley. Patient is currently sedated on the ventilator on Midazolam And fentanyl drips. Subjective 02/22: Asymptomatically Bradycardic overnight. CT abdomen/pelvis revealed air bronchograms lower lobes bilateral lungs otherwise unremarkable. Will initiate tube feeding today. Potassium will be replaced. Objective Vital Signs Date Time Temp Pulse Resp B/P Pulse Ox O2 Delivery O2 Flow Rate FiO2 02/22/17 06:00 40 02/22/17 04:00 40 02/22/17 04:00 97.7 18 129/60 100 02/21/17 19:00 Mechanical Ventilator 02/21/17 06:31 7 Intake and Output 02/21/17 02/21/17 02/21/17 07:59 15:59 23:59 Intake Total 2029 ml 2026 ml Output Total 325 ml 300 ml Balance 1704 ml 1726 ml Result Diagram: 02/22/17 0445 02/22/17 0445 Other Results Microbiology Date/Time Procedure Status Source Growth 02/21/17 13:54 Urine Culture Received Urine Clean Catch Pending 02/21/17 13:54 Legionella Antigen Received Urine Catheterized Urine Pending 02/21/17 13:54 Streptococcus pneumoniae Antigen (M Received Urine Catheterized Urine Pending 02/21/17 03:55 Gram Stain - Final Resulted Sputum Endotracheal 02/21/17 03:55 Sputum Culture Resulted Sputum Endotracheal Pending 02/21/17 03:45 Aerobic Blood Culture Received Blood Peripheral Pending 02/21/17 03:45 Anaerobic Blood Culture Received Blood Peripheral Pending Imaging Last Impressions Chest X-Ray 02/22/17 0000 Signed Impressions: Service Date/Time: Wednesday, February 22, 2017 03:56 - CONCLUSION: 1. Mild basilar airspace disease. No significant effusion. No pneumothorax. Stephan Rich MD Sinuses CT 02/21/17 0000 Signed Impressions: Service Date/Time: Tuesday, February 21, 2017 22:44 - CONCLUSION: 1. No evidence for acute sinusitis. Mucosal thickening right maxillary sinus. Stephan Rich MD Abdomen/Pelvis CT 02/21/17 0000 Signed Impressions: Service Date/Time: Tuesday, February 21, 2017 22:47 - CONCLUSION: 1. Basilar dependent lung consolidation with air bronchograms. Differential diagnosis includes pneumonia and aspiration. 2. Feeding gastrojejunostomy present. No bowel dilatation or evidence for obstruction. Mild constipation. Stephan Rich MD Objective Remarks GENERAL: 31-year-old -[place] male, critically ill currently resting in bed ventilator via tracheostomy SKIN: Dry. No rash. No rash. HEAD: Atraumatic. Normocephalic. EYES: Pupils equal and round about 3 Mckeon's bilaterally in upward gaze.. No scleral icterus. No injection or drainage. ENT: No nasal bleeding or discharge. Mucous membranes pink and moist. NECK: Trachea midline. No JVD. Thick brown secretions around trach site. Some bright red blood status post tracheostomy exchange CARDIOVASCULAR: Bradycardiac, RR. S1, S2 no S4. No murmurs appreciated RESPIRATORY: Coarse breath sounds appreciated throughout the lower lobes bilaterally. GASTROINTESTINAL: Abdomen soft, non-tender, nondistended. GJ tube in left upper quadrant is clean dry and intact MUSCULOSKELETAL: Contracted. Extremities without difficulty and peripheral edema. No Decubitus ulcers NEUROLOGICAL: GCS 8t. Positive cough/gag. Positive corneal reflex. Spontaneously moves 4 extremities but not to command. Urinary Catheter: Yes Assessment to: Continue Ospina insert reason: Prolonged Immobilization Vascular Central Line Catheter: No Assessment to: Continue A/P Assessment and Plan Neuro/Psych: History of anoxic brain injury Chronic muscle relaxant use Seizure disorder NOS Continue levetiracetam 1000 mg by PEG tube twice a day for seizure disorder Seizure precautions Continue baclofen 20 mg 3 times a day/home medication for spasticity Currently in Midazolam drip at 1 mg an hour fentanyl drip for sedation/ analgesia while on ventilator via tracheostomy We'll discontinue and utilize as needed lorazepam 0.5-1 mg every 2 hours. By PEG tube for agitation Acetaminophen for fever/pain Goal of RA SS -2 Daily sedation vacation Previously on oxycodone/acetaminophen 5/325 one tablet every 4 hours when necessary pain CV: Sinus tachycardia now sinus bradycardia History of hypertension History dyslipidemia Lactic acidosis Status post 3 L normal saline in ED. Currently on normal saline at 125 cc an hour switch to normal saline with 20 mEq KCl at 84 cc an hour. Serial lactates until cleared No indication for anti-hypertensives and/or vasopressors at this time. Resp: Acute respiratory failure secondary to aspiration pneumonia Status post tracheostomy PRVC 18/500/07/11/39 Ventilator bundle Albuterol/ipratropium every 4 hours aerosols with albuterol nebulizers every 2 hours. Dyspnea Wean as clinically indicated Wean FiO2 as clinically indicated Chest x-ray 02/22 revealed lower lobe infiltrates bilaterally #8 Shiley percutaneous tracheostomy downsize #6 Shiley GI: Nausea/vomiting Elevated transaminases History pancreatitis/pseudocyst Follow-up on CT abdomen/pelvis revealed air bronchograms bilateral low-dose. Gastric tube in place. No signs of ileus or obstruction. Patient is currently nothing by mouth. Initiate tube feeding today with vital 1.5 goal 50 cc an hour Pantoprazole for GI prophylaxis. On famotidine 40 mg daily as nursing facility Docusate sodium/senna twice a day for bowel regimen Repeat transaminases in a.m. G-tube to low intermittent wall suction. Medications per J-tube. : Ospina catheter is in place for accurate I's and O's in a critically ill patient Endo: Diabetes mellitus Sliding-scale insulin with Novulog with Accu-Cheks to maintain euglycemia/low regimen every 6 hours Renal: Creatinine currently within normal limits Monitor urine output Accurate I's and O's Heme: Normocytic anemia Thrombocytopenia Chronic Apixaban Follow-up coags. Follow up CBC in AM. Monitor trends Apixaban 5 mg twice a day resume today ID: History ESBL positive Escherichia coli MDRO positive History MRSA Currently on Zosyn/azithromycin and vancomycin #2 Blood cultures 2, UA, sputum, Legionella pneumococcal urinary antigen, influenza all pending Infectious disease consul placed MSK: Muscle contractures Continue baclofen 20 mg 3 times a day PT evaluate and treat FEN: Hypokalemia Replacing electrolytes as clinically indicated. 50 mEq KCl J tube now. Recheck in a.m. add Potassium in IV fluids Access - Utilize peripheral IV. Central line if indicated Prophylaxis - GI - pantoprazole - DVT - SCD/resume Apixaban 24 hours status post tracheostomy exchange due to current hemoptysis Critical Care: The total care time was 30 minutes. Time to perform other separately billable procedures was not included in the critical care time. Curtis Mantilla MD Feb 22, 2017 07:57
[2017-02-22] MEDS ORDERED: POTASSIUM CHLORIDE 25 MEQ EFFERVESCENT TAB J-TUBE ONE (08:15)
[2017-02-22] MEDS: ARTIFICIAL TEARS OPTH SOLN 15 ML BTL EACH EYE SCH ×3 (09:00→19:00)
[2017-02-22] MEDS: SODIUM CHLORIDE 0.9% FLUSH 10 ML FLUSH IV FLUSH SCH ×2 (09:00→20:23)
[2017-02-22] MEDS: PANTOPRAZOLE SODIUM 40 MG VIAL IV SCH (09:09)
[2017-02-22] MEDS: LORATADINE 10 MG TAB G-TUBE SCH (09:10)
[2017-02-22] MEDS: APIXABAN 5 MG TABLET G-TUBE SCH ×2 (09:10→20:22)
[2017-02-22] MEDS: AZITHROMYCIN INJ 500 MG in SODIUM CHLOR 0.9% 250 ML INJ 250 ML IV SCH (09:10)
[2017-02-22] MEDS: BACLOFEN 20 MG TAB G-TUBE SCH ×3 (09:10→17:21)
[2017-02-22] MEDS: levETIRAcetam 500 MG/5 ML UDC G-TUBE SCH ×2 (09:12→20:23)
[2017-02-22] MEDS: NS + KCL 20 MEQ INJ 1,000 ML IV SCH ×2 (09:14→20:10)
[2017-02-22] MEDS: LORazepam 1 MG TAB G-TUBE PRN (10:48)
[2017-02-22] MEDS: VANCOMYCIN INJ 1,250 MG in SODIUM CHLOR 0.9% 250 ML INJ 250 ML IV SCH ×2 (12:49→23:06)
--- NOTE | 2017-02-22 12:55 | PD.CONS ---
History of Present Illness Service Infectious disease Consult Requested By Dr Haydee Mantilla Reason for Consult Evaluate patient with aspiration pneumonia, has history of MDRO infections, assisted with antibiotic Primary Care Physician Unknown Diagnoses: History of Present Illness Patient seen and examined. Records reviewed. Patient is a 31-year-old male, who is in chronic vegetative state, due to anoxic brain injury, as a chronic trach, with sides in long-term facility at [facility], brought into the hospital for further evaluation of fever. Patient apparently has been having problem with nausea and vomiting for about a week, and he also started having problem with increased tracheal secretions. More recently he is had a fever, and patient was brought into the hospital for further evaluation and treatment. Patient has had previous hospitalization for pneumonia. On presentation, he was found to have leukocytosis. His temperature was up to 100.2, lactic acid elevated at 4.1. His chest x-ray was negative. CT of the abdomen and pelvis though showed evidence of basilar consolidation with air bronchograms suggestive of pneumonia. He has had previous history of infection with MRSA, as well as Escherichia coli ESBL positive. Patient currently is on the vent, and has no meaningful interaction. He is on the vent, and looks comfortable. His WBC is down to normal. His blood pressure is hemodynamically stable. Infectious disease consultation has been requested to assist in antibiotic management of this patient with aspiration pneumonia, and known history of MDRO infections. Review of Systems ROS Limitations: Clinical Condition, Unresponsive Past Family Social History Allergies: Coded Allergies: haloperidol (Unverified Adverse Reaction, Severe, Seizures, 02/21/17) Past Medical History Chronic tracheostomy History of left upper extremity DVT Recurrent aspiration pneumonia Hypertension Dyslipidemia History of pancreatitis/pseudocyst Diabetes mellitus Chronic narcotic use Chronic muscle relaxant use Hx MDRO infections - MRSA, ESBL+ Past Surgical History Tracheostomy, subsequent revision G/J tube placement and revision Active Ordered Medications Albuterol Eliquis Zithromax Baclofen Dulcolax Cipro eyedrops Insulin Lactulose Keppra Claritin Ativan Zofran Percocet Protonix Zosyn Potassium Sanam-Colace Senokot Vancomycin Family History Unremarkable Social History Resides in the skilled nursing No smoking No alcohol abuse No illicit drugs Physical Exam Vital Signs Vital Signs Date Time Temp Pulse Resp B/P Pulse Ox O2 Delivery O2 Flow Rate FiO2 02/22/17 12:04 100 40 02/22/17 12:00 98.6 51 18 125/58 100 02/22/17 12:00 40 02/22/17 12:00 53 02/22/17 10:00 92 02/22/17 09:00 100 40 02/22/17 08:00 44 02/22/17 08:00 98.7 44 18 127/63 100 02/22/17 08:00 40 02/22/17 07:00 100 Mechanical Ventilator 40 02/22/17 06:00 40 02/22/17 04:00 40 02/22/17 04:00 97.7 40 18 129/60 100 02/22/17 04:00 40 02/22/17 03:53 100 40 02/22/17 02:00 74 02/22/17 00:00 98.2 52 18 117/58 100 02/22/17 00:00 52 02/22/17 00:00 40 02/21/17 23:40 100 40 02/21/17 22:00 56 02/21/17 20:00 76 02/21/17 20:00 99.7 76 18 146/69 100 02/21/17 20:00 40 02/21/17 19:24 100 40 02/21/17 19:00 100 Mechanical Ventilator 40 02/21/17 18:00 70 02/21/17 16:25 100 40 02/21/17 16:00 71 02/21/17 16:00 99.5 71 18 142/67 100 02/21/17 16:00 40 02/21/17 14:13 100 40 02/21/17 14:00 67 Physical Exam GENERAL: Patient is a well-nourished, well-developed male, no interaction, looks comfortable on the vent. SKIN: Warm and dry. No generalized rash, no ecchymoses and no evidence of embolic lesions. HEAD: Atraumatic. Normocephalic. No temporal wasting, or tenderness. EYES: [place] conjunctiva. No petechia or hemorrhage. Pupils equal, round and reactive to light. No scleral icterus. No injection or drainage. EARS, NOSE AND THROAT: Nose without bleeding or purulent nasal discharge. Unable to get good exam oropharynx NECK: Tracheostomy site looks ok. Supple and not tender, no meningeal signs CARDIOVASCULAR: Regular rate and rhythm. No murmurs, rubs or gallops heard RESPIRATORY: Clear to auscultation. Breath sounds equal bilaterally. No rales , wheezing or rhonchi ABDOMEN: Soft, nondistended. Bowel sounds present and normoactive. No reaction to palpation. G/J tube site ok EXTREMITIES: No clubbing, cyanosis, or edema. No joint effusion. HIs UE are very spastic. Well perfused and warm. NEUROLOGICAL: Unresponsive PSYCHIATRIC: Unable to assess LINE: No evidence of infection : Ospina in place, urine looks clear Laboratory Laboratory Tests Test 02/21/17 02/22/17 13:54 04:45 Urine Color YELLOW Urine Turbidity CLEAR Urine pH 8.5 Urine Specific [place] 1.037 Urine Protein 100 Urine Glucose (UA) NEG Urine Ketones NEG Urine Occult Blood NEG Urine Nitrite NEG Urine Bilirubin NEG Urine Urobilinogen LESS THAN 2.0 Urine Leukocyte Esterase SMALL Urine WBC 8 Urine Hyaline Casts 5 Microscopic Urinalysis Comment CATH-CULTURE IND White Blood Count 6.1 Red Blood Count 3.54 Hemoglobin 11.3 Hematocrit 32.5 Mean Corpuscular Volume 91.6 Mean Corpuscular Hemoglobin 31.9 Mean Corpuscular Hemoglobin 34.9 Concent Red Cell Distribution Width 12.8 Platelet Count 124 Mean Platelet Volume 9.9 Neutrophils (%) (Auto) 66.7 Lymphocytes (%) (Auto) 21.4 Monocytes (%) (Auto) 10.2 Eosinophils (%) (Auto) 1.5 Basophils (%) (Auto) 0.2 Neutrophils # (Auto) 4.1 Lymphocytes # (Auto) 1.3 Monocytes # (Auto) 0.6 Eosinophils # (Auto) 0.1 Basophils # (Auto) 0.0 CBC Comment DIFF FINAL Differential Comment Prothrombin Time 12.7 Prothromb Time International 1.1 Ratio Activated Partial 31.5 Thromboplast Time Sodium Level 145 Potassium Level 3.1 Chloride Level 113 Carbon Dioxide Level 24.2 Anion Gap 8 Blood Urea Nitrogen 7 Creatinine 0.77 Estimat Glomerular Filtration 144 Rate Random Glucose 92 Lactic Acid Level 1.1 Calcium Level 7.7 Phosphorus Level 3.2 Magnesium Level 2.3 Total Bilirubin 0.6 Aspartate Amino Transf 28 (AST/SGOT) Alanine Aminotransferase 65 (ALT/SGPT) Alkaline Phosphatase 68 Total Protein 5.6 Albumin 2.5 Date/Time Procedure Status Source Growth 02/21/17 13:54 Urine Culture Received Urine Clean Catch Pending 02/21/17 13:54 Legionella Antigen - Final Complete Urine Catheterized Urine PRESUMPTIVE NEGATIVE FOR LEGIONELLA P... 02/21/17 13:54 Streptococcus pneumoniae Antigen (M - Final Complete Urine Catheterized Urine PRESUMPTIVE NEGATIVE FOR STREPTOCOCCU... 02/21/17 03:55 Gram Stain - Final Resulted Sputum Endotracheal 02/21/17 03:55 Sputum Culture Resulted Sputum Endotracheal Pending 02/21/17 03:45 Aerobic Blood Culture - Preliminary Resulted Blood Peripheral NO GROWTH IN 1 DAY 02/21/17 03:45 Anaerobic Blood Culture - Preliminary Resulted Streptococcus Species Result Diagram: 02/22/17 0445 02/22/17 0445 Imaging RADIOLOGY STUDIES/FILMS REVIEWED Chest X-Ray 02/22/17 0000 Signed Impressions: Service Date/Time: Wednesday, February 22, 2017 03:56 - CONCLUSION: 1. Mild basilar airspace disease. No significant effusion. No pneumothorax. Stephan Rich MD Sinuses CT 02/21/17 0000 Signed Impressions: Service Date/Time: Tuesday, February 21, 2017 22:44 - CONCLUSION: 1. No evidence for acute sinusitis. Mucosal thickening right maxillary sinus. Stephan Rich MD Abdomen/Pelvis CT 02/21/17 0000 Signed Impressions: Service Date/Time: Tuesday, February 21, 2017 22:47 - CONCLUSION: 1. Basilar dependent lung consolidation with air bronchograms. Differential diagnosis includes pneumonia and aspiration. 2. Feeding gastrojejunostomy present. No bowel dilatation or evidence for obstruction. Mild constipation. Stephan Rich MD Assessment and Plan Assessment and Plan IMPRESSION Sepsis on admission, due to PNA - has one (+) BC with Strep Aspiration PNA, has had N/V x 1 week Chronic vegetative state due to anoxic brain injury Hx MRSA and E coli ESBL (+) infections RECOMMENDATION Follow C/S and adjust Abx Continue Zosyn to cover GNR Continue Vanco which will cover MRSA Monitor temps Monitor progress I will course of Abx once work-up completed I will follow along with you Thank mirtah for this consultation Michelle Reynolds MD Feb 22, 2017 12:55
[2017-02-22] MEDS: HYOSCYAMINE 0.125 MG TAB PO SCH ×3 (12:58→20:22)
[2017-02-22] MEDS: CHLORHEXIDINE 0.12% (ORAL KIT) 15 ML CUP MT SCH (20:20)
[2017-02-22] MEDS: DOCUSATE SODIUM 50 MG/SENNA 8.6 MG TAB PO SCH (20:21)
[2017-02-23] VITALS (16 sets, daily range): BP systolic 153–168; BP diastolic 63–98; PULSE 44–72; RESP 15–24; TEMP 98.4–99.3; O2SAT 100
[2017-02-23] MEDS: NS + KCL 20 MEQ INJ 1,000 ML IV SCH ×2 (01:15→19:00)
[2017-02-23] MEDS: HYOSCYAMINE 0.125 MG TAB PO SCH ×6 (01:15→21:09)
[2017-02-23] MEDS: PIPERACIL-TAZO 4.5 GM PREMIX 100 ML IV SCH ×4 (03:14→22:04)
[2017-02-23] MEDS: CIPROFLOXACIN 0.3% OPTH SOLN 2.5 ML BTL EACH EYE SCH ×6 (03:26→23:11)
[2017-02-23] MEDS: CHLORHEXIDINE GLUCONATE 2 % 1 PACK (2 CLOTHS) TOP SCH (03:26)
[2017-02-23] MEDS: RESP: ALBUTEROL 2.5 MG/IPRATROPIUM 0.5 MG NEB (SCH) INH ×7 (04:05→23:47)
[2017-02-23 04:21] LABS: AUTOMATED NEUTROPHIL # 2.4 TH/MM3 (1.8-7.7); BASOPHIL % 0.3 % (0.0-2.0); EOSINOPHIL # 0.1 TH/MM3 (0-0.4); EOSINOPHIL % 2.4 % (0.0-4.0); HEMATOCRIT 34.9 % (39.0-51.0); HEMO FLAGS DIFF FINAL; LYMPH % 31.9 % (9.0-44.0); LYMPHOCYTE # 1.5 TH/MM3 (1.0-4.8); MEAN CELL VOLUME 93.1 FL (80.0-100.0); MEAN CORPUSCULAR HGB CONC 33.3 % (32.0-36.0); MONO % 14.5 % (0.0-8.0); NEUT % 50.9 % (16.0-70.0); PLATELET COUNT 137 TH/MM3 (150-450); RED BLOOD COUNT 3.75 MIL/MM3 (4.50-5.90); RED CELL DISTRIBUTION WIDTH 13.1 % (11.6-17.2); WHITE BLOOD COUNT 4.7 TH/MM3 (4.0-11.0)
[2017-02-23 04:44] LABS: ANION GAP 7 MEQ/L (5-15); AST (GOT) 23 U/L (15-37); BICARBONATE 23.7 MEQ/L (21.0-32.0); BLOOD UREA NITROGEN 3 MG/DL (7-18); CHLORIDE 110 MEQ/L (98-107); GLOMERULAR FILTRATION RATE 153 ML/MIN (>89); MAGNESIUM 2.2 MG/DL (1.5-2.5); POTASSIUM 3.8 MEQ/L (3.5-5.1); SODIUM (NA) 141 MEQ/L (136-145)
[2017-02-23] MEDS: oxyCODONE/ACETAMINOPHEN 5 MG/325 MG TAB PO PRN ×2 (04:44→21:17)
[2017-02-23 04:46] LABS: ALT (GPT) 56 U/L (12-78)
[2017-02-23 04:47] LABS: ALKALINE PHOSPHATASE 65 U/L (45-117); TOTAL BILIRUBIN ADULT 0.3 MG/DL (0.2-1.0)
[2017-02-23] MEDS: INSULIN ASPART SUPPLEMENTAL SCALE SQ SCH ×3 (05:41→19:00)
[2017-02-23] MEDS ORDERED: POTASSIUM PHOSPHATE INJ 30 MMOL in SODIUM CHLOR 0.9% 250 ML INJ 250 ML IV ONE ×2 (06:00→06:30)
--- NOTE | 2017-02-23 06:01 | HHI.CCPN ---
Subjective Remarks/Hospital Course 31-year-old male. Resident of [facility] or rehabilitation. Past medical history includes anoxic brain injury 03/21 Temovate due to Haldol administration, recurrent aspiration pneumoniaMDRO positive MRSA positive ESBL positive Escherichia coli in past, hypertension, dyslipidemia, history of pseudocyst/necrotizing, diabetes mellitus presents with a one-week history of nausea/vomiting according to his mother at this nursing facility. He was also recently diagnosed with a fever started on amoxicillin Upon presentation to the ED, patient was noted of temperature 100.2. Leukocytosis 14.5 and elevated transaminases. Lactic acid 4.1. Received 3 L normal saline. Start empirically on piperacillin/tazobactam and vancomycin. Pancultured. Chest x-ray revealed no acute findings. CT abdomen/pelvis and amylase lipase all pending. Upon presentation the floor, patient was tachycardic in acute respiratory distress. Tracheostomy was exchanged for an 8.0-6.0 Shiley. Patient is currently sedated on the ventilator on Midazolam And fentanyl drips. 02/22: Asymptomatically Bradycardic overnight. CT abdomen/pelvis revealed air bronchograms lower lobes bilateral lungs otherwise unremarkable. Will initiate tube feeding today. Potassium will be replaced. Subjective 02/23: Became tachycardic overnight with movement. We'll attempt PSV trial today. Off all continuous sedation and analgesia. Objective Vital Signs Date Time Temp Pulse Resp B/P Pulse Ox O2 Delivery O2 Flow Rate FiO2 02/23/17 04:05 100 40 02/23/17 04:00 59 02/23/17 04:00 98.6 18 162/69 02/22/17 19:00 Mechanical Ventilator 02/21/17 06:31 7 Intake and Output 02/22/17 02/22/17 02/23/17 08:00 16:00 00:00 Intake Total 1508 ml 1143 ml 1035 ml Output Total 1050 ml 1875 ml 1000 ml Balance 458 ml -732 ml 35 ml Result Diagram: 02/23/17 0320 02/23/17 0320 Other Results Microbiology Date/Time Procedure Status Source Growth 02/21/17 13:54 Urine Culture - Preliminary Resulted Urine Clean Catch NO GROWTH IN 24 HOURS. 02/21/17 13:54 Legionella Antigen - Final Complete Urine Catheterized Urine PRESUMPTIVE NEGATIVE FOR LEGIONELLA P... 02/21/17 13:54 Streptococcus pneumoniae Antigen (M - Final Complete Urine Catheterized Urine PRESUMPTIVE NEGATIVE FOR STREPTOCOCCU... 02/21/17 03:55 Gram Stain - Final Resulted Sputum Endotracheal 02/21/17 03:55 Sputum Culture - Preliminary Resulted Sputum Endotracheal HEAVY GROWTH NORMAL RESPIRATORY KENAN... 02/21/17 03:45 Aerobic Blood Culture - Preliminary Resulted Blood Peripheral NO GROWTH IN 1 DAY 02/21/17 03:45 Anaerobic Blood Culture - Preliminary Resulted Streptococcus Species Imaging Last Impressions Chest X-Ray 02/22/17 0000 Signed Impressions: Service Date/Time: Wednesday, February 22, 2017 03:56 - CONCLUSION: 1. Mild basilar airspace disease. No significant effusion. No pneumothorax. Stephan Rich MD Sinuses CT 02/21/17 0000 Signed Impressions: Service Date/Time: Tuesday, February 21, 2017 22:44 - CONCLUSION: 1. No evidence for acute sinusitis. Mucosal thickening right maxillary sinus. Stephan Rich MD Abdomen/Pelvis CT 02/21/17 0000 Signed Impressions: Service Date/Time: Tuesday, February 21, 2017 22:47 - CONCLUSION: 1. Basilar dependent lung consolidation with air bronchograms. Differential diagnosis includes pneumonia and aspiration. 2. Feeding gastrojejunostomy present. No bowel dilatation or evidence for obstruction. Mild constipation. Stephan Rich MD Objective Remarks GENERAL: 31-year-old -[place] male, critically ill currently resting in bed ventilator via tracheostomy SKIN: Dry. No rash. No rash. HEAD: Atraumatic. Normocephalic. EYES: Pupils equal and round about 3 Mckeon's bilaterally in upward gaze.. No scleral icterus. No injection or drainage. ENT: No nasal bleeding or discharge. Mucous membranes pink and moist. NECK: Trachea midline. No JVD. Thick brown secretions around trach site. Some bright red blood status post tracheostomy exchange CARDIOVASCULAR: Bradycardiac, RR. S1, S2 no S4. No murmurs appreciated RESPIRATORY: Coarse breath sounds appreciated throughout the lower lobes bilaterally. GASTROINTESTINAL: Abdomen soft, non-tender, nondistended. GJ tube in left upper quadrant is clean dry and intact MUSCULOSKELETAL: Contracted. Extremities without difficulty and peripheral edema. No Decubitus ulcers NEUROLOGICAL: GCS 8t. Positive cough/gag. Positive corneal reflex. Spontaneously moves 4 extremities but not to command. A/P Assessment and Plan Neuro/Psych: History of anoxic brain injury Chronic muscle relaxant use Seizure disorder NOS Continue levetiracetam 1000 mg by PEG tube twice a day for seizure disorder Seizure precautions Continue baclofen 20 mg 3 times a day/home medication for spasticity We'll discontinue and utilize as needed lorazepam 0.5-1 mg every 2 hours. By PEG tube for agitation Acetaminophen for fever/pain Goal of RA SS -2 Daily sedation vacation Previously on oxycodone/acetaminophen 5/325 one tablet every 4 hours when necessary pain. Resumed 02/22 CV: Sinus tachycardia now sinus bradycardia History of hypertension History dyslipidemia Lactic acidosis Status post 3 L normal saline in ED. Currently normal saline with 20 mEq KCl at 84 cc an hour. No indication for anti-hypertensives and/or vasopressors at this time. Resp: Acute respiratory failure secondary to aspiration pneumonia Status post tracheostomy PRVC //07/11/39 Ventilator bundle Albuterol/ipratropium every 4 hours aerosols with albuterol nebulizers every 2 hours. Dyspnea Wean as clinically indicated Wean FiO2 as clinically indicated Chest x-ray 02/22 revealed lower lobe infiltrates bilaterally. A.m. chest x-ray pending #8 Shiley percutaneous tracheostomy downsize #6 Shiley on 02/21 due to respiratory distress. GI: Nausea/vomiting Elevated transaminases History pancreatitis/pseudocyst Follow-up on CT abdomen/pelvis revealed air bronchograms bilateral low-dose. Gastric tube in place. No signs of ileus or obstruction. Initiate tube feeding today with vital 1.5 goal 50 cc an hour Plan for IR G/J patency on Friday. Mother requests exchanging. We'll start with this initially. Pantoprazole for GI prophylaxis. On famotidine 40 mg daily as nursing facility Docusate sodium/senna twice a day for bowel regimen : Ospina catheter is in place for accurate I's and O's in a critically ill patient Endo: Diabetes mellitus Sliding-scale insulin with Novulog with Accu-Cheks to maintain euglycemia/low regimen every 6 hours Renal: Creatinine currently within normal limits Monitor urine output Accurate I's and O's Heme: Normocytic anemia Thrombocytopenia Chronic Apixaban Follow-up coags. Follow up CBC in AM. Monitor trends Apixaban 5 mg twice a day resume 02/23 ID: History ESBL positive Escherichia coli MDRO positive History MRSA Conjunctiva's Currently on Zosyn/azithromycin and vancomycin #3 Blood cultures 2 02/21 gram-positive cocci/strep species. Repeat blood cultures today 02/23 UA, sputum, Legionella pneumococcal urinary antigen, influenza all negative/no growth Infectious disease consult appreciated 2-D echocardiogram ordered rule out endocarditis MSK: Muscle contractures Continue baclofen 20 mg 3 times a day PT evaluate and treat FEN: Hypophosphatemia Replacing electrolytes as clinically indicated. K-Phos. Recheck in AM. Access - Utilize peripheral IV. Central line if indicated Prophylaxis - GI - pantoprazole - DVT - SCD/resume Apixaban 5 mg twice a day resumed Critical Care: The total care time was 30 minutes. Time to perform other separately billable procedures was not included in the critical care time. Curtis Mantlila MD Feb 23, 2017 06:01
--- NOTE | 2017-02-23 06:04 | RADRPT ---
EXAM DATE/TIME: 02/23/2017 04:16 [facility] COMPARISON: CHEST SINGLE AP, February 22, 2017, 3:56. INDICATIONS : Evaluate for pnuemonia MEDICAL HISTORY : Sepsis. SURGICAL HISTORY : Tracheostomy ENCOUNTER: Subsequent ACUITY: 3 days PAIN SCORE: Non-responsive. LOCATION: Bilateral chest FINDINGS: A single view of the chest demonstrates the patient be markedly rotated rightward which distorts medi astinal structures. I believe that there is persistent mild bibasilar airspace disease with no associ ated effusions. Heart size is prominent. Tracheostomy tube is stable in position.. CONCLUSION: 1. Marked rightward rotation of the patient. 2. Stable minimal bibasilar airspace disease, left greater than right. 3. No significant change from prior Beny Whalen MD on February 23, 2017 at 6:01 Board Certified Radiologist. This report was verified electronically.
[2017-02-23] MEDS: CHLORHEXIDINE 0.12% (ORAL KIT) 15 ML CUP MT SCH ×2 (08:00→20:05)
[2017-02-23] MEDS: AZITHROMYCIN INJ 500 MG in SODIUM CHLOR 0.9% 250 ML INJ 250 ML IV SCH (08:00)
[2017-02-23] MEDS: DOCUSATE SODIUM 50 MG/SENNA 8.6 MG TAB PO SCH ×2 (09:00→21:00)
[2017-02-23] MEDS: LORATADINE 10 MG TAB G-TUBE SCH (09:00)
[2017-02-23] MEDS: SODIUM CHLORIDE 0.9% FLUSH 10 ML FLUSH IV FLUSH SCH ×2 (09:00→21:09)
[2017-02-23] MEDS: APIXABAN 5 MG TABLET G-TUBE SCH ×2 (09:00→21:09)
[2017-02-23] MEDS: BACLOFEN 20 MG TAB G-TUBE SCH ×3 (09:00→19:00)
[2017-02-23] MEDS: levETIRAcetam 500 MG/5 ML UDC G-TUBE SCH ×2 (09:00→21:09)
[2017-02-23] MEDS: PANTOPRAZOLE SODIUM 40 MG VIAL IV SCH (09:00)
[2017-02-23] MEDS ORDERED: PHARMACY ORDERED LAB ONE ×2 (10:45→22:45)
[2017-02-23] MEDS: VANCOMYCIN INJ 1,250 MG in SODIUM CHLOR 0.9% 250 ML INJ 250 ML IV SCH (11:00)
--- NOTE | 2017-02-23 15:00 | HHI.IDPN ---
Subjective Subjective Remarks Patient is a 31-year-old male, who is in chronic vegetative state, due to anoxic brain injury, as a chronic trach, with sides in long-term facility at [facility], brought into the hospital for further evaluation of fever. Patient apparently has been having problem with nausea and vomiting for about a week, and he also started having problem with increased tracheal secretions. More recently he is had a fever, and patient was brought into the hospital for further evaluation and treatment. Patient has had previous hospitalization for pneumonia. On presentation, he was found to have leukocytosis. His temperature was up to 100.2, lactic acid elevated at 4.1. His chest x-ray was negative. CT of the abdomen and pelvis though showed evidence of basilar consolidation with air bronchograms suggestive of pneumonia. He has had previous history of infection with MRSA, as well as Escherichia coli ESBL positive. Patient currently is on the vent, and has no meaningful interaction. He is on the vent, and looks comfortable. His WBC is down to normal. His blood pressure is hemodynamically stable. Infectious disease consultation has been requested to assist in antibiotic management of this patient with aspiration pneumonia, and known history of MDRO infections. Notes reviewed Temps better ISABELLA ok, not on pressors On CPAP Has a lot of oral secretions, drooling BC with Viridans Strep Sputum with Pseudomonas UC negative CXR with stable basilar infiltrates Antibiotics Zosyn Vancomycin Zithromax Past Medical History Chronic tracheostomy History of left upper extremity DVT Recurrent aspiration pneumonia Hypertension Dyslipidemia History of pancreatitis/pseudocyst Diabetes mellitus Chronic narcotic use Chronic muscle relaxant use Hx MDRO infections - MRSA, ESBL+ Past Surgical History Tracheostomy, subsequent revision G/J tube placement and revision Allergies: Coded Allergies: haloperidol (Unverified Adverse Reaction, Severe, Seizures, 02/21/17) Objective . Vital Signs Date Time Temp Pulse Resp B/P (MAP) Pulse Ox O2 Delivery O2 Flow Rate FiO2 02/23/17 13:00 100 40 02/23/17 09:45 40 02/23/17 09:45 100 40 02/23/17 07:48 100 40 02/23/17 06:00 66 02/23/17 04:05 100 40 02/23/17 04:00 59 02/23/17 04:00 40 02/23/17 04:00 98.6 59 18 162/69 (100) 100 02/23/17 02:00 44 02/23/17 00:00 100 40 02/23/17 00:00 44 02/23/17 00:00 98.4 44 18 153/98 (116) 100 02/23/17 00:00 40 02/22/17 22:00 102 02/22/17 21:53 100 40 02/22/17 20:00 46 02/22/17 20:00 99.1 48 18 149/65 (93) 100 02/22/17 20:00 40 02/22/17 19:47 93 40 02/22/17 19:00 97 Mechanical Ventilator 40 02/22/17 18:00 51 02/22/17 16:31 93 40 02/22/17 16:00 40 02/22/17 16:00 99.0 46 18 138/60 (86) 95 02/22/17 16:00 58 . Laboratory Tests Test 02/22/17 04:45 02/23/17 03:20 White Blood Count 6.1 TH/MM3 4.7 TH/MM3 Red Blood Count 3.54 MIL/MM3 3.75 MIL/MM3 Hemoglobin 11.3 GM/DL 11.6 GM/DL Hematocrit 32.5 % 34.9 % Mean Corpuscular Volume 91.6 FL 93.1 FL Mean Corpuscular Hemoglobin 31.9 PG 31.0 PG Mean Corpuscular Hemoglobin Concent 34.9 % 33.3 % Red Cell Distribution Width 12.8 % 13.1 % Platelet Count 124 TH/MM3 137 TH/MM3 Mean Platelet Volume 9.9 FL 10.5 FL Neutrophils (%) (Auto) 66.7 % 50.9 % Lymphocytes (%) (Auto) 21.4 % 31.9 % Monocytes (%) (Auto) 10.2 % 14.5 % Eosinophils (%) (Auto) 1.5 % 2.4 % Basophils (%) (Auto) 0.2 % 0.3 % Neutrophils # (Auto) 4.1 TH/MM3 2.4 TH/MM3 Lymphocytes # (Auto) 1.3 TH/MM3 1.5 TH/MM3 Monocytes # (Auto) 0.6 TH/MM3 0.7 TH/MM3 Eosinophils # (Auto) 0.1 TH/MM3 0.1 TH/MM3 Basophils # (Auto) 0.0 TH/MM3 0.0 TH/MM3 CBC Comment DIFF FINAL DIFF FINAL Differential Comment Laboratory Tests Test 02/22/17 04:45 02/23/17 03:20 Blood Urea Nitrogen 7 MG/DL 3 MG/DL Creatinine 0.77 MG/DL 0.73 MG/DL Random Glucose 92 MG/DL 91 MG/DL Total Protein 5.6 GM/DL 5.9 GM/DL Albumin 2.5 GM/DL 2.6 GM/DL Calcium Level 7.7 MG/DL 8.2 MG/DL Phosphorus Level 3.2 MG/DL 2.2 MG/DL Magnesium Level 2.3 MG/DL 2.2 MG/DL Alkaline Phosphatase 68 U/L 65 U/L Aspartate Amino Transf (AST/SGOT) 28 U/L 23 U/L Alanine Aminotransferase (ALT/SGPT) 65 U/L 56 U/L Total Bilirubin 0.6 MG/DL 0.3 MG/DL Sodium Level 145 MEQ/L 141 MEQ/L Potassium Level 3.1 MEQ/L 3.8 MEQ/L Chloride Level 113 MEQ/L 110 MEQ/L Carbon Dioxide Level 24.2 MEQ/L 23.7 MEQ/L Anion Gap 8 MEQ/L 7 MEQ/L Estimat Glomerular Filtration Rate 144 ML/MIN 153 ML/MIN Lactic Acid Level 1.1 mmol/L Microbiology Date/Time Source Procedure Growth Status 02/23/17 08:25 Blood Peripheral Aerobic Blood Culture Pending Received 02/23/17 08:25 Blood Peripheral Anaerobic Blood Culture Pending Received 02/23/17 07:45 Blood Peripheral Aerobic Blood Culture Pending Received 02/23/17 07:45 Blood Peripheral Anaerobic Blood Culture Pending Received 02/21/17 03:45 Blood Peripheral Aerobic Blood Culture - Preliminary NO GROWTH IN 2 DAYS Resulted 02/21/17 03:45 Anaerobic Blood Culture - Preliminary Viridans Streptococcus Grp Resulted 02/21/17 03:40 Blood Peripheral Aerobic Blood Culture - Preliminary NO GROWTH IN 2 DAYS Resulted 02/21/17 03:40 Anaerobic Blood Culture - Final Viridans Streptococcus Grp Resulted 02/21/17 03:55 Sputum Endotracheal Gram Stain - Final Resulted 02/21/17 03:55 Sputum Culture - Preliminary Pseudomonas Species Resulted 02/21/17 13:54 Urine Clean Catch Urine Culture - Final NO GROWTH IN 48 HOURS. Complete 02/21/17 13:54 Urine Catheterized Urine Legionella Antigen - Final PRESUMPTIVE NEGATIVE FOR LEGIONELLA P... Complete 02/21/17 13:54 Urine Catheterized Urine Streptococcus pneumoniae Antigen (M - Final PRESUMPTIVE NEGATIVE FOR STREPTOCOCCU... Complete Imaging Last Impressions Chest X-Ray 02/23/17 0600 Signed Impressions: Service Date/Time: Thursday, February 23, 2017 04:16 - CONCLUSION: 1. Marked rightward rotation of the patient. 2. Stable minimal bibasilar airspace disease , left greater than right. 3. No significant change from prior Beny Whalen MD Sinuses CT 02/21/17 0000 Signed Impressions: Service Date/Time: Tuesday, February 21, 2017 22:44 - CONCLUSION: 1. No evidence for acute sinusitis. Mucosal thickening right maxillary sinus. Stephan Rich MD Abdomen/Pelvis CT 02/21/17 0000 Signed Impressions: Service Date/Time: Tuesday, February 21, 2017 22:47 - CONCLUSION: 1. Basilar dependent lung consolidation with air bronchograms. Differential diagnosis includes pneumonia and aspiration. 2. Feeding gastrojejunostomy present. No bowel dilatation or evidence for obstruction. Mild constipation. Stephan Rich MD Physical Exam GENERAL: awake but no interaction, looks comfortable on the vent. Drooling SKIN: Warm and dry. No generalized rash, no ecchymoses and no evidence of embolic lesions. HEAD: Atraumatic. Normocephalic. No temporal wasting, or tenderness. EYES: [place] conjunctiva. No petechia or hemorrhage. Pupils equal, round and reactive to light. No scleral icterus. No injection or drainage. EARS, NOSE AND THROAT: Nose without bleeding or purulent nasal discharge. A lot of oral secretions NECK: Tracheostomy site looks ok. Supple and not tender, no meningeal signs CARDIOVASCULAR: Regular rate and rhythm. No murmurs, rubs or gallops heard RESPIRATORY: Coarse BS bilaterally, decreased at bases ABDOMEN: Soft, nondistended. Bowel sounds present and normoactive. No reaction to palpation. G/J tube site ok EXTREMITIES: No clubbing, cyanosis, or edema. No joint effusion. HIs UE are very spastic. Well perfused and warm. NEUROLOGICAL: Unresponsive PSYCHIATRIC: Unable to assess LINE: No evidence of infection : Ospina in place, urine looks clear Assessment & Plan Remarks IMPRESSION Sepsis on admission, due to PNA - sputum with Pseudomonas Viridans Strep bacteremis, source Aspiration PNA, has had N/V x 1 week Chronic vegetative state due to anoxic brain injury Hx MRSA and E coli ESBL (+) infections RECOMMENDATION Follow C/S and adjust Abx Continue Zosyn to cover GNR Continue Vanco which will cover MRSA Follow repeat BC Echo Monitor temps Monitor progress Michelle Reynolds MD Feb 23, 2017 15:00
[2017-02-23] MEDS: ATROPINE SULFATE 1% OPHT SOLN 5 ML BTL SL PRN (20:05)
[2017-02-23] MEDS: ARTIFICIAL TEARS OPTH SOLN 15 ML BTL EACH EYE SCH (20:06)
[2017-02-24] VITALS (20 sets, daily range): BP systolic 123–169; BP diastolic 59–81; PULSE 44–103; RESP 15–18; TEMP 98.2–100.8; O2SAT 98–100
[2017-02-24] MEDS: VANCOMYCIN INJ 1,250 MG in SODIUM CHLOR 0.9% 250 ML INJ 250 ML IV SCH ×2 (01:02→12:44)
[2017-02-24] MEDS: HYOSCYAMINE 0.125 MG TAB PO SCH ×5 (01:22→20:01)
[2017-02-24] MEDS: LORazepam 1 MG TAB G-TUBE PRN (01:22)
[2017-02-24] MEDS: oxyCODONE/ACETAMINOPHEN 5 MG/325 MG TAB PO PRN (01:58)
[2017-02-24] MEDS: CIPROFLOXACIN 0.3% OPTH SOLN 2.5 ML BTL EACH EYE SCH ×5 (03:27→23:14)
[2017-02-24] MEDS: RESP: ALBUTEROL 2.5 MG/IPRATROPIUM 0.5 MG NEB (SCH) INH ×5 (03:31→23:30)
[2017-02-24] MEDS: CHLORHEXIDINE GLUCONATE 2 % 1 PACK (2 CLOTHS) TOP SCH ×2 (03:38→04:00)
[2017-02-24] MEDS: PIPERACIL-TAZO 4.5 GM PREMIX 100 ML IV SCH ×3 (03:38→21:47)
[2017-02-24] MEDS: NS + KCL 20 MEQ INJ 1,000 ML IV SCH ×2 (04:57→19:40)
[2017-02-24] MEDS: INSULIN ASPART SUPPLEMENTAL SCALE SQ SCH ×3 (05:25→19:30)
--- NOTE | 2017-02-24 05:44 | RADRPT ---
EXAM DATE/TIME: 02/24/2017 04:04 [facility] COMPARISON: CHEST SINGLE AP, February 23, 2017, 4:16. INDICATIONS : Evaluate tracheostomy MEDICAL HISTORY : Sepsis. SURGICAL HISTORY : Tracheostomy ENCOUNTER: Subsequent ACUITY: 4 - 6 days PAIN SCORE: Non-responsive. LOCATION: Bilateral chest FINDINGS: Tracheostomy in good position. Mild basilar dependent airspace disease similar to February 23. No new c onsolidation or effusion. CONCLUSION: 1. Tracheostomy appears to be in good position. No pneumothorax or effusion. Stable basilar dependent opacity in the lungs. Stephan Rich MD on February 24, 2017 at 5:42 Board Certified Radiologist. This report was verified electronically.
[2017-02-24 06:25] LABS: HEMATOCRIT 35.8 % (39.0-51.0); MEAN CELL VOLUME 92.6 FL (80.0-100.0); MEAN CORPUSCULAR HEMOGLOBIN 31.5 PG (27.0-34.0); PLATELET COUNT 119 TH/MM3 (150-450); RED BLOOD COUNT 3.86 MIL/MM3 (4.50-5.90); RED CELL DISTRIBUTION WIDTH 13.1 % (11.6-17.2); REVIEW FLAG FINAL; WHITE BLOOD COUNT 4.7 TH/MM3 (4.0-11.0)
[2017-02-24 07:11] LABS: MAGNESIUM 2.1 MG/DL (1.5-2.5)
[2017-02-24] MEDS: CHLORHEXIDINE 0.12% (ORAL KIT) 15 ML CUP MT SCH ×2 (08:00→19:40)
[2017-02-24] MEDS: SODIUM CHLORIDE 0.9% FLUSH 10 ML FLUSH IV FLUSH SCH ×2 (09:00→20:02)
[2017-02-24] MEDS: LORATADINE 10 MG TAB G-TUBE SCH (09:29)
[2017-02-24] MEDS: BACLOFEN 20 MG TAB G-TUBE SCH ×3 (09:29→20:02)
[2017-02-24] MEDS: AZITHROMYCIN INJ 500 MG in SODIUM CHLOR 0.9% 250 ML INJ 250 ML IV SCH (09:30)
[2017-02-24] MEDS: levETIRAcetam 500 MG/5 ML UDC G-TUBE SCH ×2 (09:30→20:01)
[2017-02-24] MEDS: PANTOPRAZOLE SODIUM 40 MG VIAL IV SCH (09:31)
--- NOTE | 2017-02-24 10:04 | HHI.CCPN ---
Subjective Remarks/Hospital Course 31-year-old male. Resident of [facility] or rehabilitation. Past medical history includes anoxic brain injury 03/21 Temovate due to Haldol administration, recurrent aspiration pneumoniaMDRO positive MRSA positive ESBL positive Escherichia coli in past, hypertension, dyslipidemia, history of pseudocyst/necrotizing, diabetes mellitus presents with a one-week history of nausea/vomiting according to his mother at this nursing facility. He was also recently diagnosed with a fever started on amoxicillin Upon presentation to the ED, patient was noted of temperature 100.2. Leukocytosis 14.5 and elevated transaminases. Lactic acid 4.1. Received 3 L normal saline. Start empirically on piperacillin/tazobactam and vancomycin. Pancultured. Chest x-ray revealed no acute findings. CT abdomen/pelvis and amylase lipase all pending. Upon presentation the floor, patient was tachycardic in acute respiratory distress. Tracheostomy was exchanged for an 8.0-6.0 Shiley. Patient is currently sedated on the ventilator on Midazolam And fentanyl drips. 02/22: Asymptomatically Bradycardic overnight. CT abdomen/pelvis revealed air bronchograms lower lobes bilateral lungs otherwise unremarkable. Will initiate tube feeding today. Potassium will be replaced. Subjective 02/23: Became tachycardic overnight with movement. We'll attempt PSV trial today. Off all continuous sedation and analgesia. 02/24: Remains intubated, moves all extremities. tolerating CPAP 06/10. CXR mild basilar infiltrated Objective Vital Signs Date Time Temp Pulse Resp B/P (MAP) Pulse Ox O2 Delivery O2 Flow Rate FiO2 02/24/17 08:48 98 T-piece 6.00 40 02/24/17 06:00 50 02/24/17 04:00 98.2 17 134/65 (88) Intake and Output 02/24/17 02/24/17 02/25/17 08:00 16:00 00:00 Intake Total 2326 ml Output Total 1900 ml Balance 426 ml Result Diagram: 02/24/17 0530 02/24/17 0530 Other Results Microbiology Date/Time Source Procedure Growth Status 02/21/17 13:54 Urine Clean Catch Urine Culture - Final NO GROWTH IN 48 HOURS. Complete 02/21/17 13:54 Urine Catheterized Urine Legionella Antigen - Final PRESUMPTIVE NEGATIVE FOR LEGIONELLA P... Complete 02/21/17 13:54 Urine Catheterized Urine Streptococcus pneumoniae Antigen (M - Final PRESUMPTIVE NEGATIVE FOR STREPTOCOCCU... Complete Imaging Last Impressions Chest X-Ray 02/22/17 0000 Signed Impressions: Service Date/Time: Wednesday, February 22, 2017 03:56 - CONCLUSION: 1. Mild basilar airspace disease. No significant effusion. No pneumothorax. Stephan Rich MD Sinuses CT 02/21/17 0000 Signed Impressions: Service Date/Time: Tuesday, February 21, 2017 22:44 - CONCLUSION: 1. No evidence for acute sinusitis. Mucosal thickening right maxillary sinus. Stephan Rich MD Abdomen/Pelvis CT 02/21/17 0000 Signed Impressions: Service Date/Time: Tuesday, February 21, 2017 22:47 - CONCLUSION: 1. Basilar dependent lung consolidation with air bronchograms. Differential diagnosis includes pneumonia and aspiration. 2. Feeding gastrojejunostomy present. No bowel dilatation or evidence for obstruction. Mild constipation. Stephan Rich MD Objective Remarks GENERAL: 31-year-old -[place] male, critically ill currently resting in bed ventilator via tracheostomy SKIN: Dry. No rash. No rash. HEAD: Atraumatic. Normocephalic. EYES: Pupils equal and round about 3 mm bilaterally in upward gaze. No scleral icterus. No injection or drainage. ENT: No nasal bleeding or discharge. Mucous membranes pink and moist. NECK: Trachea midline. No JVD. Brown secretions around trach site. CARDIOVASCULAR: Bradycardiac, RR. S1, S2 no S4. No murmurs appreciated RESPIRATORY: Coarse breath sounds appreciated throughout the lower lobes bilaterally. GASTROINTESTINAL: Abdomen soft, non-tender, nondistended. GJ tube in left upper quadrant is clean dry and intact MUSCULOSKELETAL: Contracted. Moves all extremities without difficulty and peripheral edema. No Decubitus ulcers NEUROLOGICAL: Positive cough/gag. Spontaneously moves 4 extremities but not to command. A/P Assessment and Plan Neuro/Psych: History of anoxic brain injury Chronic muscle relaxant use Seizure disorder NOS Continue levetiracetam 1000 mg by PEG tube twice a day for seizure disorder Seizure precautions As needed lorazepam 0.5-1 mg every 2 hours. By PEG tube for agitation Acetaminophen for fever/pain Goal of RASS -2 Daily sedation vacation-DC continuous sedation Previously on oxycodone/acetaminophen 5/325 one tablet every 4 hours when necessary pain. Resumed 02/22 CV: Sinus bradycardia History of hypertension History dyslipidemia Lactic acidosis Status post 3 L normal saline in ED. Currently normal saline with 20 mEq KCl at 84 cc an hour. No vasopressors at this time. Resp: Acute respiratory failure secondary to aspiration pneumonia Status post tracheostomy PRVC 18/500/07/11/40, tolerating CPAP TP up to 4 hours starting 02/24 Ventilator bundle Albuterol/ipratropium every 4 hours aerosols with albuterol nebulizers every 2 hours. Dyspnea Wean FiO2 as clinically indicated Chest x-ray 02/22 revealed lower lobe infiltrates bilaterally. #8 Shiley percutaneous tracheostomy downsize #6 Shiley on 02/21 due to respiratory distress. GI: Nausea/vomiting Elevated transaminases History pancreatitis/pseudocyst Follow-up on CT abdomen/pelvis revealed air bronchograms bilateral low-dose. Gastric tube in place. No signs of ileus or obstruction. Tube feeding with vital 1.5 goal 50 cc an hour Plan for IR G/J patency on Friday. Mother requests exchanging. Pantoprazole for GI prophylaxis. On famotidine 40 mg daily as nursing facility Docusate sodium/senna twice a day for bowel regimen : Ospina catheter is in place for accurate I's and O's in a critically ill patient Endo: Diabetes mellitus Sliding-scale insulin with Novulog with Accu-Cheks to maintain euglycemia/low regimen every 6 hours Renal: Creatinine currently within normal limits Monitor urine output Accurate I's and O's Heme: Normocytic anemia Thrombocytopenia Chronic Apixaban Follow-up coags. Follow up CBC in AM. Monitor trends Apixaban 5 mg twice a day resume 02/23 ID: History ESBL positive Escherichia coli MDRO positive History MRSA Conjunctiva's Currently on Zosyn/azithromycin and vancomycin #4 Blood cultures 2 02/21 strep viridans, sputum culture Pseudomonas. Repeat blood cultures 02/23. UA, sputum, Legionella pneumococcal urinary antigen, influenza all negative/no growth Infectious disease consult appreciated 2-D echocardiogram ordered rule out endocarditis MSK: Muscle contractures PT evaluate and treat FEN: Hypophosphatemia Replacing electrolytes as clinically indicated. Access - Utilize peripheral IV. Central line if indicated Prophylaxis - GI - pantoprazole - DVT - SCD/Apixaban 5 mg twice a day resumed Critical Care: The total care time was 30 minutes. Time to perform other separately billable procedures was not included in the critical care time. Sadia Blanchard MD Feb 24, 2017 10:04
[2017-02-24] MEDS: APIXABAN 5 MG TABLET G-TUBE SCH ×2 (13:02→20:01)
--- NOTE | 2017-02-24 13:55 | HHI.IDPN ---
Subjective Subjective Remarks Patient is a 31-year-old male, who is in chronic vegetative state, due to anoxic brain injury, as a chronic trach, with sides in long-term facility at [place], brought into the hospital for further evaluation of fever. Patient apparently has been having problem with nausea and vomiting for about a week, and he also started having problem with increased tracheal secretions. More recently he is had a fever, and patient was brought into the hospital for further evaluation and treatment. Patient has had previous hospitalization for pneumonia. On presentation, he was found to have leukocytosis. His temperature was up to 100.2, lactic acid elevated at 4.1. His chest x-ray was negative. CT of the abdomen and pelvis though showed evidence of basilar consolidation with air bronchograms suggestive of pneumonia. He has had previous history of infection with MRSA, as well as Escherichia coli ESBL positive. Patient currently is on the vent, and has no meaningful interaction. He is on the vent, and looks comfortable. His WBC is down to normal. His blood pressure is hemodynamically stable. Infectious disease consultation has been requested to assist in antibiotic management of this patient with aspiration pneumonia, and known history of MDRO infections. Notes reviewed Temps ok ISABELLA ok, not on pressors On CPAP Has a lot of oral secretions BC with Viridans Strep Sputum with Pseudomonas, no sensis yet UC negative CXR with stable basilar infiltrates Antibiotics Zosyn Vancomycin Zithromax Past Medical History Chronic tracheostomy History of left upper extremity DVT Recurrent aspiration pneumonia Hypertension Dyslipidemia History of pancreatitis/pseudocyst Diabetes mellitus Chronic narcotic use Chronic muscle relaxant use Hx MDRO infections - MRSA, ESBL+ Past Surgical History Tracheostomy, subsequent revision G/J tube placement and revision Allergies: Coded Allergies: haloperidol (Unverified Adverse Reaction, Severe, Seizures, 02/21/17) Objective . Vital Signs Date Time Temp Pulse Resp B/P (MAP) Pulse Ox O2 Delivery O2 Flow Rate FiO2 02/24/17 12:00 40 02/24/17 12:00 99.0 73 17 169/79 (109) 100 02/24/17 12:00 73 02/24/17 10:00 58 02/24/17 09:00 100 T-Piece 40 02/24/17 08:48 98 T-piece 6.00 40 02/24/17 08:46 100 40 02/24/17 08:00 40 02/24/17 08:00 44 02/24/17 08:00 98.6 44 15 123/59 (80) 100 02/24/17 07:00 96 Mechanical Ventilator 40 02/24/17 06:00 50 02/24/17 04:57 100 40 02/24/17 04:00 40 02/24/17 04:00 66 02/24/17 04:00 98.2 66 17 134/65 (88) 100 02/24/17 02:00 103 02/24/17 00:00 98.8 61 18 157/81 (106) 100 02/24/17 00:00 72 02/24/17 00:00 40 02/23/17 23:45 100 40 02/23/17 22:00 72 02/23/17 20:11 100 40 02/23/17 20:00 46 02/23/17 20:00 40 02/23/17 20:00 99.1 61 24 157/75 (102) 100 02/23/17 19:00 100 Mechanical Ventilator 02/23/17 18:00 46 02/23/17 16:15 100 40 02/23/17 16:00 44 02/23/17 16:00 99.3 44 15 168/63 (98) 100 02/23/17 16:00 40 02/23/17 14:00 46 02/23/17 14:00 40 02/24/17 02/24/17 02/25/17 14:59 22:59 06:59 Intake Total 250 ml Balance 250 ml Intake IV Total 250 ml . Laboratory Tests Test 02/23/17 03:20 02/24/17 05:30 White Blood Count 4.7 TH/MM3 4.7 TH/MM3 Red Blood Count 3.75 MIL/MM3 3.86 MIL/MM3 Hemoglobin 11.6 GM/DL 12.2 GM/DL Hematocrit 34.9 % 35.8 % Mean Corpuscular Volume 93.1 FL 92.6 FL Mean Corpuscular Hemoglobin 31.0 PG 31.5 PG Mean Corpuscular Hemoglobin Concent 33.3 % 34.0 % Red Cell Distribution Width 13.1 % 13.1 % Platelet Count 137 TH/MM3 119 TH/MM3 Mean Platelet Volume 10.5 FL 11.5 FL Neutrophils (%) (Auto) 50.9 % Lymphocytes (%) (Auto) 31.9 % Monocytes (%) (Auto) 14.5 % Eosinophils (%) (Auto) 2.4 % Basophils (%) (Auto) 0.3 % Neutrophils # (Auto) 2.4 TH/MM3 Lymphocytes # (Auto) 1.5 TH/MM3 Monocytes # (Auto) 0.7 TH/MM3 Eosinophils # (Auto) 0.1 TH/MM3 Basophils # (Auto) 0.0 TH/MM3 CBC Comment DIFF FINAL Differential Comment Hematology Comments Laboratory Tests Test 02/23/17 03:20 02/24/17 05:30 Blood Urea Nitrogen 3 MG/DL 3 MG/DL Creatinine 0.73 MG/DL 0.75 MG/DL Random Glucose 91 MG/DL 102 MG/DL Total Protein 5.9 GM/DL Albumin 2.6 GM/DL Calcium Level 8.2 MG/DL 7.8 MG/DL Phosphorus Level 2.2 MG/DL 3.4 MG/DL Magnesium Level 2.2 MG/DL 2.1 MG/DL Alkaline Phosphatase 65 U/L Aspartate Amino Transf (AST/SGOT) 23 U/L Alanine Aminotransferase (ALT/SGPT) 56 U/L Total Bilirubin 0.3 MG/DL Sodium Level 141 MEQ/L 142 MEQ/L Potassium Level 3.8 MEQ/L 5.0 MEQ/L Chloride Level 110 MEQ/L 113 MEQ/L Carbon Dioxide Level 23.7 MEQ/L 19.0 MEQ/L Anion Gap 7 MEQ/L 10 MEQ/L Estimat Glomerular Filtration Rate 153 ML/MIN 148 ML/MIN Microbiology Date/Time Source Procedure Growth Status 02/23/17 08:25 Blood Peripheral Aerobic Blood Culture - Preliminary NO GROWTH IN 1 DAY Resulted 02/23/17 08:25 Blood Peripheral Anaerobic Blood Culture - Preliminary NO GROWTH IN 1 DAY Resulted 02/23/17 07:45 Blood Peripheral Aerobic Blood Culture - Preliminary NO GROWTH IN 1 DAY Resulted 02/23/17 07:45 Blood Peripheral Anaerobic Blood Culture - Preliminary NO GROWTH IN 1 DAY Resulted Imaging Last Impressions Chest X-Ray 02/23/17 0600 Signed Impressions: Service Date/Time: Thursday, February 23, 2017 04:16 - CONCLUSION: 1. Marked rightward rotation of the patient. 2. Stable minimal bibasilar airspace disease , left greater than right. 3. No significant change from prior Beny Whalen MD Sinuses CT 02/21/17 0000 Signed Impressions: Service Date/Time: Tuesday, February 21, 2017 22:44 - CONCLUSION: 1. No evidence for acute sinusitis. Mucosal thickening right maxillary sinus. Stephan Rich MD Abdomen/Pelvis CT 02/21/17 0000 Signed Impressions: Service Date/Time: Tuesday, February 21, 2017 22:47 - CONCLUSION: 1. Basilar dependent lung consolidation with air bronchograms. Differential diagnosis includes pneumonia and aspiration. 2. Feeding gastrojejunostomy present. No bowel dilatation or evidence for obstruction. Mild constipation. Stephan Rich MD Physical Exam GENERAL: awake but no interaction, looks comfortable on the vent. Drooling SKIN: Warm and dry. No generalized rash, no ecchymoses and no evidence of embolic lesions. HEAD: Atraumatic. Normocephalic. No temporal wasting, or tenderness. EYES: [place] conjunctiva. No petechia or hemorrhage. Pupils equal, round and reactive to light. No scleral icterus. No injection or drainage. EARS, NOSE AND THROAT: Nose without bleeding or purulent nasal discharge. A lot of oral secretions NECK: Tracheostomy site looks ok. Supple and not tender, no meningeal signs CARDIOVASCULAR: Regular rate and rhythm. No murmurs, rubs or gallops heard RESPIRATORY: Coarse BS bilaterally, decreased at bases ABDOMEN: Soft, nondistended. Bowel sounds present and normoactive. No reaction to palpation. G/J tube site ok EXTREMITIES: No clubbing, cyanosis, or edema. No joint effusion. HIs UE are very spastic. Well perfused and warm. NEUROLOGICAL: Unresponsive PSYCHIATRIC: Unable to assess LINE: No evidence of infection : Ospina in place, urine looks clear Assessment & Plan Remarks IMPRESSION Sepsis on admission, due to PNA - sputum with Pseudomonas Viridans Strep bacteremis, source Aspiration PNA, has had N/V x 1 week Chronic vegetative state due to anoxic brain injury Hx MRSA and E coli ESBL (+) infections RECOMMENDATION Follow C/S and adjust Abx Continue Zosyn to cover GNR Stop Vanco since no MRSA Follow repeat BC Echo Monitor temps Monitor progress Michelle Reynolds MD Feb 24, 2017 13:55
[2017-02-24] MEDS ORDERED: NOREPINEPHRINE-DEXTROSE DRIP 250 ML IV ONE (14:49)
--- NOTE | 2017-02-24 15:45 | ECHRPT ---
Indication: endocarditis CONCLUSIONS The left ventricular systolic function is hyperdynamic with an estimated ejection fraction in the ra nge of 65- 70%. No regional wall motion abnormalities are present. Normal left ventricular size. There is assymetric septal hypertrophy. The left atrial size is upper limits of normal. No mitral valve regurgitation. No aortic valve regurgitation. No aortic valve stenosis. The pulmonary valve is not well visualized. No evidence of vegetation BP: 134 / 65 HR: 66 Rhythm: MEASUREMENTS (Male / Female) Normal Values Technical Quality:Good 2D ECHO LV Diastolic Diameter PLAX 5.2 cm 4.2 - 5.9 / 3.9 - 5.3 cm LV Systolic Diameter PLAX 3.5 cm IVS Diastolic Thickness 1.3 cm 0.6 - 1.0 / 0.6 - 0.9 cm LVPW Diastolic Thickness 0.8 cm 0.6 - 1.0 / 0.6 - 0.9 cm LV Relative Wall Thickness 0.4 RV Internal Dim ED PLAX 3.0 cm M-MODE Aortic Root Diameter MM 3.3 cm LA Systolic Diameter MM 4.2 cm LA Ao Ratio MM 1.3 AV Cusp Separation MM 2.4 cm DOPPLER Mitral E Point Velocity 104.0 cm/s Mitral A Point Velocity 55.8 cm/s Mitral E to A Ratio 1.9 LV E' Lateral Velocity 11.9 cm/s Mitral E to LV E' Lateral Ratio 8.7 LV E' Septal Velocity 13.6 cm/s Mitral E to LV E' Septal Ratio 7.6 FINDINGS LEFT VENTRICLE The left ventricular systolic function is hyperdynamic with an estimated ejection fraction in the ra nge of 65- 70%. No regional wall motion abnormalities are present. Normal left ventricular size. There is assymetric septal hypertrophy. RIGHT VENTRICLE Normal right ventricular size and systolic function. LEFT ATRIUM The left atrial size is upper limits of normal. RIGHT ATRIUM The right atrial size is normal. ATRIAL SEPTUM Normal atrial septal thickness without atrial level shunting by limited color doppler interrogation. AORTA The aortic root and proximal ascending aorta are normal in size on limited imaging. MITRAL VALVE No mitral valve regurgitation. AORTIC VALVE Trileaflet aortic valve. No aortic valve regurgitation. No aortic valve stenosis. TRICUSPID VALVE Structurally normal tricuspid valve. No tricuspid valve stenosis or regurgitation. PULMONARY VALVE The pulmonary valve is not well visualized. VESSELS The inferior vena cava is normal in size. PERICARDIUM No pericardial effusion. Jesus Mccarty MD (Electronically Signed) Final Date:24 February 2017 15:44
[2017-02-24] MEDS: DOCUSATE SODIUM 50 MG/SENNA 8.6 MG TAB PO SCH (20:03)
[2017-02-24] MEDS: VANCOMYCIN 1,500 MG/NS 500 ML IV SCH ×2 (23:45)
[2017-02-25] VITALS (19 sets, daily range): BP systolic 136–164; BP diastolic 63–79; PULSE 42–90; RESP 14–26; TEMP 98.2–100; O2SAT 98–100
[2017-02-25] MEDS: HYOSCYAMINE 0.125 MG TAB PO SCH ×6 (01:06→21:00)
[2017-02-25] MEDS: oxyCODONE/ACETAMINOPHEN 5 MG/325 MG TAB PO PRN (01:07)
[2017-02-25] MEDS: CHLORHEXIDINE GLUCONATE 2 % 1 PACK (2 CLOTHS) TOP SCH (03:42)
[2017-02-25] MEDS: CIPROFLOXACIN 0.3% OPTH SOLN 2.5 ML BTL EACH EYE SCH ×6 (03:42→23:00)
[2017-02-25] MEDS: PIPERACIL-TAZO 4.5 GM PREMIX 100 ML IV SCH ×4 (03:43→21:41)
[2017-02-25] MEDS: RESP: ALBUTEROL 2.5 MG/IPRATROPIUM 0.5 MG NEB (SCH) INH ×5 (04:22→20:05)
[2017-02-25] MEDS: INSULIN ASPART SUPPLEMENTAL SCALE SQ SCH ×4 (05:40→17:37)
[2017-02-25] MEDS: NS + KCL 20 MEQ INJ 1,000 ML IV SCH ×2 (08:25→19:40)
[2017-02-25] MEDS: levETIRAcetam 500 MG/5 ML UDC G-TUBE SCH ×2 (08:26→21:41)
[2017-02-25] MEDS: BACLOFEN 20 MG TAB G-TUBE SCH ×3 (08:26→17:37)
[2017-02-25] MEDS: AZITHROMYCIN INJ 500 MG in SODIUM CHLOR 0.9% 250 ML INJ 250 ML IV SCH (08:27)
[2017-02-25] MEDS: PANTOPRAZOLE SODIUM 40 MG VIAL IV SCH (08:27)
[2017-02-25] MEDS: APIXABAN 5 MG TABLET G-TUBE SCH ×2 (08:27→21:42)
[2017-02-25] MEDS: SODIUM CHLORIDE 0.9% FLUSH 10 ML FLUSH IV FLUSH SCH ×2 (08:27→21:42)
[2017-02-25] MEDS: DOCUSATE SODIUM 50 MG/SENNA 8.6 MG TAB PO SCH ×2 (08:28→21:00)
[2017-02-25] MEDS: CHLORHEXIDINE 0.12% (ORAL KIT) 15 ML CUP MT SCH ×2 (08:29→20:00)
[2017-02-25] MEDS: LORATADINE 10 MG TAB G-TUBE SCH (08:29)
[2017-02-25] MEDS: ARTIFICIAL TEARS OPTH SOLN 15 ML BTL EACH EYE SCH ×3 (08:30→17:37)
--- NOTE | 2017-02-25 09:06 | HHI.CCPN ---
Subjective Remarks/Hospital Course 31-year-old male. Resident of [facility] or rehabilitation. Past medical history includes anoxic brain injury 03/21 Temovate due to Haldol administration, recurrent aspiration pneumoniaMDRO positive MRSA positive ESBL positive Escherichia coli in past, hypertension, dyslipidemia, history of pseudocyst/necrotizing, diabetes mellitus presents with a one-week history of nausea/vomiting according to his mother at this nursing facility. He was also recently diagnosed with a fever started on amoxicillin Upon presentation to the ED, patient was noted of temperature 100.2. Leukocytosis 14.5 and elevated transaminases. Lactic acid 4.1. Received 3 L normal saline. Start empirically on piperacillin/tazobactam and vancomycin. Pancultured. Chest x-ray revealed no acute findings. CT abdomen/pelvis and amylase lipase all pending. Upon presentation the floor, patient was tachycardic in acute respiratory distress. Tracheostomy was exchanged for an 8.0-6.0 Shiley. Patient is currently sedated on the ventilator on Midazolam And fentanyl drips. 02/22: Asymptomatically Bradycardic overnight. CT abdomen/pelvis revealed air bronchograms lower lobes bilateral lungs otherwise unremarkable. Will initiate tube feeding today. Potassium will be replaced. Subjective 02/23: Became tachycardic overnight with movement. We'll attempt PSV trial today. Off all continuous sedation and analgesia. 02/24: Remains intubated, moves all extremities. tolerating CPAP 06/10. CXR mild basilar infiltrated 02/24: Remains off vasopressor. Tolerated TP 3-4 hours yesterday. Tmax 100.8. Neuro at baseline Objective Vital Signs Date Time Temp Pulse Resp B/P (MAP) Pulse Ox O2 Delivery O2 Flow Rate FiO2 02/25/17 06:00 53 02/25/17 04:48 100 Ventilator 02/25/17 04:16 40 02/25/17 04:00 98.8 14 136/63 (87) 02/24/17 08:48 6.00 Intake and Output 02/25/17 02/25/17 02/25/17 07:59 15:59 23:59 Intake Total 2150 ml Output Total 1450 ml Balance 700 ml Result Diagram: 02/24/17 0530 02/24/17 0530 Imaging Last Impressions Chest X-Ray 02/22/17 0000 Signed Impressions: Service Date/Time: Wednesday, February 22, 2017 03:56 - CONCLUSION: 1. Mild basilar airspace disease. No significant effusion. No pneumothorax. Stephan Rich MD Sinuses CT 02/21/17 0000 Signed Impressions: Service Date/Time: Tuesday, February 21, 2017 22:44 - CONCLUSION: 1. No evidence for acute sinusitis. Mucosal thickening right maxillary sinus. Stephan Rich MD Abdomen/Pelvis CT 02/21/17 0000 Signed Impressions: Service Date/Time: Tuesday, February 21, 2017 22:47 - CONCLUSION: 1. Basilar dependent lung consolidation with air bronchograms. Differential diagnosis includes pneumonia and aspiration. 2. Feeding gastrojejunostomy present. No bowel dilatation or evidence for obstruction. Mild constipation. Stephan Rich MD Objective Remarks GENERAL: 31-year-old -[place] male, critically ill currently resting in bed ventilator via tracheostomy SKIN: Dry. No rash. No rash. HEAD: Atraumatic. Normocephalic. EYES: Pupils equal and round about 3 mm bilaterally. No scleral icterus. No injection or drainage. ENT: No nasal bleeding or discharge. Mucous membranes pink and moist. NECK: Trachea midline. No JVD. Brown secretions around trach site. #6 Shiley CARDIOVASCULAR: Bradycardiac, RR. S1, S2 no S4. No murmurs appreciated RESPIRATORY: Coarse breath sounds appreciated throughout the lower lobes bilaterally. GASTROINTESTINAL: Abdomen soft, non-tender, nondistended. GJ tube in left upper quadrant is clean dry and intact MUSCULOSKELETAL: Contracted. Moves all extremities without difficulty and peripheral edema. No Decubitus ulcers NEUROLOGICAL: Eyes are open spontaneously, no tracking. Spontaneously moves 4 extremities but not to command. Extremities are contracted A/P Assessment and Plan Neuro/Psych: History of anoxic brain injury Chronic muscle relaxant use Seizure disorder NOS Continue levetiracetam 1000 mg by PEG tube twice a day for seizure disorder, Seizure precautions As needed lorazepam 0.5-1 mg every 2 hours by PEG tube for agitation Acetaminophen for fever/pain Off all continuous sedation Previously on oxycodone/acetaminophen 5/325 one tablet every 4 hours when necessary pain. Resumed 02/22 CV: Sinus bradycardia History of hypertension History dyslipidemia Lactic acidosis Status post 3 L normal saline in ED. Currently normal saline with 20 mEq KCl at 84 cc an hour. No vasopressors at this time. Resp: Acute respiratory failure secondary to aspiration pneumonia Status post tracheostomy exchange PRVC 18/500/1/5/40, tolerating CPAP TP up to 4 hours 02/24. Increase TP time to 10 hours 02/25 Ventilator bundle. Albuterol/ipratropium every 4 hours aerosols with albuterol nebulizers every 2 hours. Dyspnea Wean FiO2 as clinically indicated Chest x-ray 02/22 revealed lower lobe infiltrates bilaterally. #8 Renate percutaneous tracheostomy downsized #6 Renate on 02/21 due to respiratory distress. GI: Nausea/vomiting Elevated transaminases History pancreatitis/pseudocyst Follow-up on CT abdomen/pelvis revealed air bronchograms bilateral low-dose. Gastric tube in place. No signs of ileus or obstruction. Tube feeding with vital 1.5 goal 50 cc an hour Plan for IR G/J patency on Friday. Mother requests exchanging-today's scheduled with IR Pantoprazole for GI prophylaxis. On famotidine 40 mg daily as nursing facility Docusate sodium/senna twice a day for bowel regimen : Ospina catheter is in place for accurate I's and O's in a critically ill patient Endo: Diabetes mellitus Sliding-scale insulin with NovoLog with Accu-Cheks to maintain euglycemia/low regimen every 6 hours Renal: Creatinine currently within normal limits Monitor urine output Accurate I's and O's Heme: Normocytic anemia Thrombocytopenia Chronic Apixaban Follow-up coags. Follow up CBC in AM. Monitor trends Apixaban 5 mg twice a day resumed 02/23 ID: Pseudomonas pneumonia Strep viridans bacteremia History ESBL positive Escherichia coli MDRO positive History MRSA Currently on Zosyn per ID Dr. Reynolds Blood cultures 2 02/21 strep viridans, sputum culture Pseudomonas. Repeat blood cultures 02/23. UA, Legionella pneumococcal urinary antigen, influenza all negative/no growth 2-D echocardiogram ordered rule out endocarditis-neg for veg MSK: Muscle contractures PT evaluate and treat FEN: Hypophosphatemia Replacing electrolytes as clinically indicated. Access - Utilize peripheral IV. Central line if indicated Prophylaxis - GI - pantoprazole - DVT - SCD/Apixaban 5 mg twice a day resumed Critical Care: Level 3 new consult Sadia Blanchard MD Feb 25, 2017 09:06
--- NOTE | 2017-02-25 11:41 | PD.RAD ---
Post Procedure Progress Note Pre Procedure Diagnosis: (1) Feeding tube dysfunction Post Procedure Diagnosis: (1) Feeding tube dysfunction Procedure Date: Feb 25, 2017 Supervising Radiologist: Beny Whalen Proceduralist/Assist: Leny Ivy RT(R), RT Tavares(R)() Plan of Activity Patient to Unit: Critical Care Patient Condition: Fair See PACS Report for procedural detail/treatment Feeding Tube Gastro/Jejunostomy Exchange Tongan: 22 Findings: Purported leakage from tube. Tube o/w patent Beny Whalen MD Feb 25, 2017 11:41
[2017-02-25] MEDS ORDERED: IOHEXOL 350 MG/ML 50 ML BTL (for RAD DIAG) G-TUBE ONE (11:58)
--- NOTE | 2017-02-25 12:04 | RADRPT ---
EXAM DATE/TIME: 02/25/2017 10:57 CORRECTION Corrected on: March 28, 2017; added change of g tube catheter [facility] COMPARISON: No previous studies available for comparison. INDICATIONS : Patient with history of an anoxic brain injury in need of gastrojejunostomy tube exchange. MEDICAL HISTORY : Chronic tracheostomy Chronic NOAC use History of left upper extremity DVT Recurrent aspiration pneumonia Hypertension Dyslipidemia History of pancreatitis/pseudocyst Diabetes mellitus Chronic narcotic use Chronic muscle relaxant use SURGICAL HISTORY : Tracheostomy GJ tube ENCOUNTER: Subsequent ACUITY: >1 year PAIN SCORE: change of g tube catheter FLUORO TIME: 0.5 minutes IMAGE SERIES: 4 CONTRAST: 30 cc Omnipaque (iohexol) 350 DEVICE(S): 1.) 22 Maltese Transgastric tube PROCEDURE : 1. Fluoroscopically guided gastrojejunostomy tube exchange. 2. Conscious sedation with continuous EKG and oximetry monitoring. The risks, benefits and alternatives to the procedure were explained and verbal and written consent w as obtained. The site was prepped in sterile fashion. Full sterile technique was used, including ca p, mask, sterile gloves and gown and a large sterile sheet. Hand hygiene and 2% chlorhexidine and/or betadine/alcohol prep was utilized per protocol for cutaneous antisepsis. The skin and subcutaneous tissues were infiltrated with local anesthetic solution. With fluoroscopic guidance a guidewire was passed through the previous gastrojejunostomy tube and a f resh tube was placed over the guidewire. The balloon was inflated with appropriate volume of saline. Injection of positive contrast demonstrates good position of the gastric and jejunal lumens of the tube. Conscious sedation was performed with the prescribed dosages and duration as above in the presence of an independent trained radiology nurse to assist in the monitoring of the patient. EKG and oximetry remained stable throughout the procedure. The patient tolerated the procedure well and there were n o complications. The patient was sent to post anesthesia recovery in stable condition. CONCLUSION: Uncomplicated gastrojejunostomy tube exchange as above. Beny Whalen MD on February 25, 2017 at 12:01 Board Certified Radiologist. Board Certified Radiologist. This report was verified electronically.
--- NOTE | 2017-02-25 12:49 | HHI.IDPN ---
Subjective Subjective Remarks Patient is a 31-year-old male, who is in chronic vegetative state, due to anoxic brain injury, as a chronic trach, with sides in long-term facility at [place], brought into the hospital for further evaluation of fever. Patient apparently has been having problem with nausea and vomiting for about a week, and he also started having problem with increased tracheal secretions. More recently he is had a fever, and patient was brought into the hospital for further evaluation and treatment. Patient has had previous hospitalization for pneumonia. On presentation, he was found to have leukocytosis. His temperature was up to 100.2, lactic acid elevated at 4.1. His chest x-ray was negative. CT of the abdomen and pelvis though showed evidence of basilar consolidation with air bronchograms suggestive of pneumonia. He has had previous history of infection with MRSA, as well as Escherichia coli ESBL positive. Patient currently is on the vent, and has no meaningful interaction. He is on the vent, and looks comfortable. His WBC is down to normal. His blood pressure is hemodynamically stable. Infectious disease consultation has been requested to assist in antibiotic management of this patient with aspiration pneumonia, and known history of MDRO infections. Notes reviewed Temps low grade Has blood in trach Had exchange of GJ tube On T-piece BP ok, not on pressors BC with Viridans Strep I to PCN and Amp Repeat negative Sputum with Pseudomonas, R to Primaxin, and Levaquin UC negative CXR with stable basilar infiltrates Antibiotics Zosyn Vancomycin Zithromax Past Medical History Chronic tracheostomy History of left upper extremity DVT Recurrent aspiration pneumonia Hypertension Dyslipidemia History of pancreatitis/pseudocyst Diabetes mellitus Chronic narcotic use Chronic muscle relaxant use Hx MDRO infections - MRSA, ESBL+ Past Surgical History Tracheostomy, subsequent revision G/J tube placement and revision Allergies: Coded Allergies: haloperidol (Unverified Adverse Reaction, Severe, Seizures, 02/21/17) Objective . Vital Signs Date Time Temp Pulse Resp B/P (MAP) Pulse Ox O2 Delivery O2 Flow Rate FiO2 02/25/17 11:00 100 02/25/17 10:00 86 02/25/17 09:47 98 T-piece 6.00 40 02/25/17 09:45 100 40 02/25/17 08:00 40 02/25/17 08:00 98.2 63 23 163/79 (107) 100 02/25/17 08:00 63 02/25/17 07:00 100 Mechanical Ventilator 40 02/25/17 06:00 53 02/25/17 04:48 100 Ventilator 02/25/17 04:16 100 40 02/25/17 04:00 98.8 46 14 136/63 (87) 100 02/25/17 04:00 46 02/25/17 04:00 40 02/25/17 02:00 51 02/25/17 00:48 100 40 02/25/17 00:00 40 02/25/17 00:00 50 02/25/17 00:00 100.0 50 17 144/65 (91) 100 02/24/17 22:00 51 02/24/17 21:06 100 Ventilator 02/24/17 20:51 100 40 02/24/17 20:00 40 02/24/17 20:00 48 02/24/17 20:00 100.8 46 15 141/63 (89) 100 02/24/17 19:00 100 Mechanical Ventilator 40 02/24/17 18:00 54 02/24/17 17:54 100 40 02/24/17 16:00 40 02/24/17 16:00 99.9 78 16 155/68 (97) 100 02/24/17 16:00 78 02/24/17 14:00 74 02/24/17 13:00 100 40 02/25/17 02/25/17 02/26/17 15:00 23:00 07:00 Intake Total 503 ml Balance 503 ml Intake IV Total 503 ml . Laboratory Tests Test 02/24/17 05:30 White Blood Count 4.7 TH/MM3 Red Blood Count 3.86 MIL/MM3 Hemoglobin 12.2 GM/DL Hematocrit 35.8 % Mean Corpuscular Volume 92.6 FL Mean Corpuscular Hemoglobin 31.5 PG Mean Corpuscular Hemoglobin Concent 34.0 % Red Cell Distribution Width 13.1 % Platelet Count 119 TH/MM3 Mean Platelet Volume 11.5 FL Hematology Comments Laboratory Tests Test 02/24/17 05:30 Blood Urea Nitrogen 3 MG/DL Creatinine 0.75 MG/DL Random Glucose 102 MG/DL Calcium Level 7.8 MG/DL Phosphorus Level 3.4 MG/DL Magnesium Level 2.1 MG/DL Sodium Level 142 MEQ/L Potassium Level 5.0 MEQ/L Chloride Level 113 MEQ/L Carbon Dioxide Level 19.0 MEQ/L Anion Gap 10 MEQ/L Estimat Glomerular Filtration Rate 148 ML/MIN Microbiology Date/Time Source Procedure Growth Status 02/23/17 08:25 Blood Peripheral Aerobic Blood Culture - Preliminary NO GROWTH IN 2 DAYS Resulted 02/23/17 08:25 Blood Peripheral Anaerobic Blood Culture - Preliminary NO GROWTH IN 2 DAYS Resulted 02/23/17 07:45 Blood Peripheral Aerobic Blood Culture - Preliminary NO GROWTH IN 2 DAYS Resulted 02/23/17 07:45 Blood Peripheral Anaerobic Blood Culture - Preliminary NO GROWTH IN 2 DAYS Resulted 02/24/17 17:40 Sputum Endotracheal Gram Stain - Final Resulted 02/24/17 17:40 Sputum Endotracheal Sputum Culture Pending Resulted Imaging Last Impressions Chest X-Ray 02/23/17 0600 Signed Impressions: Service Date/Time: Thursday, February 23, 2017 04:16 - CONCLUSION: 1. Marked rightward rotation of the patient. 2. Stable minimal bibasilar airspace disease , left greater than right. 3. No significant change from prior Beny Whalen MD Sinuses CT 02/21/17 0000 Signed Impressions: Service Date/Time: Tuesday, February 21, 2017 22:44 - CONCLUSION: 1. No evidence for acute sinusitis. Mucosal thickening right maxillary sinus. Stephan Rich MD Abdomen/Pelvis CT 02/21/17 0000 Signed Impressions: Service Date/Time: Tuesday, February 21, 2017 22:47 - CONCLUSION: 1. Basilar dependent lung consolidation with air bronchograms. Differential diagnosis includes pneumonia and aspiration. 2. Feeding gastrojejunostomy present. No bowel dilatation or evidence for obstruction. Mild constipation. Stephan Rich MD Physical Exam GENERAL: awake but no interaction, looks comfortable on T-piece. SKIN: Warm and dry. No generalized rash, no ecchymoses and no evidence of embolic lesions. HEAD: Atraumatic. Normocephalic. No temporal wasting, or tenderness. EYES: Chadron conjunctiva. No petechia or hemorrhage. Pupils equal, round and reactive to light. No scleral icterus. No injection or drainage. EARS, NOSE AND THROAT: Nose without bleeding or purulent nasal discharge. A lot of oral secretions NECK: Tracheostomy site with bloody drainage. CARDIOVASCULAR: Regular rate and rhythm. No murmurs, rubs or gallops heard RESPIRATORY: Coarse BS bilaterally, decreased at bases ABDOMEN: Soft, nondistended. Bowel sounds present and normoactive. No reaction to palpation. G/J tube site ok EXTREMITIES: No clubbing, cyanosis, or edema. No joint effusion. HIs UE are very spastic. Well perfused and warm. NEUROLOGICAL: Unresponsive PSYCHIATRIC: Unable to assess LINE: No evidence of infection : Ospina in place, urine looks clear Assessment & Plan Remarks IMPRESSION Sepsis on admission, due to PNA - sputum with Pseudomonas Viridans Strep bacteremis, source? Aspiration PNA, has had N/V x 1 week Chronic vegetative state due to anoxic brain injury Hx MRSA and E coli ESBL (+) infections RECOMMENDATION Follow C/S and adjust Abx Continue Zosyn to cover PSAE Restart Vanco since I to Amp and PCN Follow repeat BC Echo Monitor temps Monitor progress Michelle Reynolds MD Feb 25, 2017 12:49
[2017-02-25] MEDS: LORazepam 1 MG TAB G-TUBE PRN (12:53)
[2017-02-25] MEDS: VANCOMYCIN 1,500 MG/NS 500 ML IV SCH ×4 (12:54→23:25)
[2017-02-25] MEDS ORDERED: Vancomycin Consult Pharmacy 1 EA OTHER SCH (13:00)
[2017-02-25] MEDS ORDERED: VANCOMYCIN INJ 1,250 MG in SODIUM CHLOR 0.9% 250 ML INJ 250 ML IV SCH (13:00)
--- NOTE | 2017-02-25 17:54 | RADRPT ---
EXAM DATE/TIME: 02/25/2017 17:18 [facility] COMPARISON: CHEST SINGLE AP, February 24, 2017, 4:04. INDICATIONS : Shortness of breath. MEDICAL HISTORY : Sepsis. SURGICAL HISTORY : Trachestomy. ENCOUNTER: Subsequent ACUITY: 4 - 6 days PAIN SCORE: 0/10 LOCATION: Bilateral chest FINDINGS: A single view of the chest demonstrates the lungs to be symmetrically aerated without evidence of mas s, infiltrate or effusion. Tracheostomy tube in good position. The cardiomediastinal contours are unr emarkable. Osseous structures are intact. CONCLUSION: Clear lungs. Zachariah Echeverria Jr., MD on February 25, 2017 at 17:44 Board Certified Radiologist. This report was verified electronically.
[2017-02-25] MEDS: RESP: TOBRAMYCIN SULFATE 80 MG/2 ML NEB NEB SCH (20:45)
[2017-02-25 23:59] LABS: AUTOMATED NEUTROPHIL # 2.9 TH/MM3 (1.8-7.7); BASOPHIL % 0.3 % (0.0-2.0); EOSINOPHIL # 0.1 TH/MM3 (0-0.4); EOSINOPHIL % 3.1 % (0.0-4.0); HEMATOCRIT 43.5 % (39.0-51.0); HEMO FLAGS DIFF FINAL; LYMPHOCYTE # 1.1 TH/MM3 (1.0-4.8); MEAN CORPUSCULAR HEMOGLOBIN 31.4 PG (27.0-34.0); MEAN CORPUSCULAR HGB CONC 33.4 % (32.0-36.0); MONO % 12.6 % (0.0-8.0); PLATELET COUNT 147 TH/MM3 (150-450); RED BLOOD COUNT 4.63 MIL/MM3 (4.50-5.90); RED CELL DISTRIBUTION WIDTH 13.4 % (11.6-17.2); WHITE BLOOD COUNT 4.7 TH/MM3 (4.0-11.0)
[2017-02-26] VITALS (27 sets, daily range): BP systolic 149–185; BP diastolic 62–85; PULSE 35–72; RESP 16–22; TEMP 98.6–99.7; O2SAT 97–100
[2017-02-26 00:06] LABS: INTERNATIONAL NORMALIZED RATIO 1.1 RATIO
[2017-02-26] MEDS: RESP: ALBUTEROL 2.5 MG/IPRATROPIUM 0.5 MG NEB (SCH) INH ×6 (00:26→23:57)
[2017-02-26] MEDS: HYOSCYAMINE 0.125 MG TAB PO SCH ×6 (01:00→21:03)
[2017-02-26] MEDS: CIPROFLOXACIN 0.3% OPTH SOLN 2.5 ML BTL EACH EYE SCH (03:00)
[2017-02-26] MEDS: CHLORHEXIDINE GLUCONATE 2 % 1 PACK (2 CLOTHS) TOP SCH (04:00)
[2017-02-26] MEDS: PIPERACIL-TAZO 4.5 GM PREMIX 100 ML IV SCH ×4 (05:21→21:03)
[2017-02-26] MEDS: INSULIN ASPART SUPPLEMENTAL SCALE SQ SCH ×4 (06:00→18:00)
[2017-02-26] MEDS: SODIUM CHLOR 0.9% 1000 ML INJ 1,000 ML IV SCH ×2 (08:00→13:00)
[2017-02-26] MEDS: CHLORHEXIDINE 0.12% (ORAL KIT) 15 ML CUP MT SCH ×2 (08:00→21:02)
[2017-02-26] MEDS: RESP: TOBRAMYCIN SULFATE 80 MG/2 ML NEB NEB SCH ×2 (08:17→20:34)
[2017-02-26] MEDS: AZITHROMYCIN INJ 500 MG in SODIUM CHLOR 0.9% 250 ML INJ 250 ML IV SCH (08:34)
[2017-02-26] MEDS: PANTOPRAZOLE SODIUM 40 MG VIAL IV SCH (08:34)
[2017-02-26] MEDS: APIXABAN 5 MG TABLET G-TUBE SCH (08:35)
[2017-02-26] MEDS: levETIRAcetam 500 MG/5 ML UDC G-TUBE SCH ×2 (08:35→21:01)
[2017-02-26] MEDS: BACLOFEN 20 MG TAB G-TUBE SCH ×3 (08:36→18:26)
[2017-02-26] MEDS: LORATADINE 10 MG TAB G-TUBE SCH (08:36)
[2017-02-26] MEDS: SODIUM CHLORIDE 0.9% FLUSH 10 ML FLUSH IV FLUSH SCH ×2 (09:00→21:02)
[2017-02-26] MEDS: DOCUSATE SODIUM 50 MG/SENNA 8.6 MG TAB PO SCH ×2 (09:00→21:00)
[2017-02-26] MEDS: ARTIFICIAL TEARS OPTH SOLN 15 ML BTL EACH EYE SCH (09:00)
--- NOTE | 2017-02-26 11:18 | HHI.CCPN ---
Subjective Remarks/Hospital Course 31-year-old male. Resident of [facility] or rehabilitation. Past medical history includes anoxic brain injury 03/21 Temovate due to Haldol administration, recurrent aspiration pneumoniaMDRO positive MRSA positive ESBL positive Escherichia coli in past, hypertension, dyslipidemia, history of pseudocyst/necrotizing, diabetes mellitus presents with a one-week history of nausea/vomiting according to his mother at this nursing facility. He was also recently diagnosed with a fever started on amoxicillin Upon presentation to the ED, patient was noted of temperature 100.2. Leukocytosis 14.5 and elevated transaminases. Lactic acid 4.1. Received 3 L normal saline. Start empirically on piperacillin/tazobactam and vancomycin. Pancultured. Chest x-ray revealed no acute findings. CT abdomen/pelvis and amylase lipase all pending. Upon presentation the floor, patient was tachycardic in acute respiratory distress. Tracheostomy was exchanged for an 8.0-6.0 Shiley. Patient is currently sedated on the ventilator on Midazolam And fentanyl drips. 02/22: Asymptomatically Bradycardic overnight. CT abdomen/pelvis revealed air bronchograms lower lobes bilateral lungs otherwise unremarkable. Will initiate tube feeding today. Potassium will be replaced. Subjective 02/23: Became tachycardic overnight with movement. We'll attempt PSV trial today. Off all continuous sedation and analgesia. 02/24: Remains intubated, moves all extremities. tolerating CPAP 06/10. CXR mild basilar infiltrated 02/25: Remains off vasopressor. Tolerated TP 3-4 hours yesterday. Tmax 100.8. Neuro at baseline 02/26: Tolerated TP up to 10 hour yesterday. Bloody trach secretions has almost resolved. Chest x-ray is unchanged. Fever trending down Objective Vital Signs Date Time Temp Pulse Resp B/P (MAP) Pulse Ox O2 Delivery O2 Flow Rate FiO2 02/26/17 10:00 67 02/26/17 08:52 100 T-piece 35 02/26/17 08:00 99.1 22 165/72 (103) 02/25/17 09:47 6.00 Intake and Output 02/26/17 02/26/17 02/26/17 07:59 15:59 23:59 Intake Total 634 ml Output Total 850 ml Balance -216 ml Result Diagram: 02/25/17 9997 02/26/17 0282 Other Results Microbiology Date/Time Source Procedure Growth Status 02/24/17 17:40 Sputum Endotracheal Gram Stain - Final Complete 02/24/17 17:40 Sputum Culture - Final Pseudomonas Aeruginosa Complete Imaging Last Impressions Chest X-Ray 02/22/17 0000 Signed Impressions: Service Date/Time: Wednesday, February 22, 2017 03:56 - CONCLUSION: 1. Mild basilar airspace disease. No significant effusion. No pneumothorax. Stephan Rich MD Sinuses CT 02/21/17 0000 Signed Impressions: Service Date/Time: Tuesday, February 21, 2017 22:44 - CONCLUSION: 1. No evidence for acute sinusitis. Mucosal thickening right maxillary sinus. Stephan Rich MD Abdomen/Pelvis CT 02/21/17 0000 Signed Impressions: Service Date/Time: Tuesday, February 21, 2017 22:47 - CONCLUSION: 1. Basilar dependent lung consolidation with air bronchograms. Differential diagnosis includes pneumonia and aspiration. 2. Feeding gastrojejunostomy present. No bowel dilatation or evidence for obstruction. Mild constipation. Stephan Rich MD Objective Remarks GENERAL: 31-year-old -J[place] male, critically ill currently resting in bed on TP via tracheostomy SKIN: Dry. No rash. No rash. HEAD: Atraumatic. Normocephalic. EYES: Pupils equal and round about 3 mm bilaterally. No scleral icterus. No injection or drainage. ENT: No nasal bleeding or discharge. Mucous membranes pink and moist. NECK: Trachea midline. No JVD. Bloody secretions around trach site, and endotracheally. #6 Shiley CARDIOVASCULAR: Bradycardiac, RR. S1, S2 no S4. No murmurs appreciated RESPIRATORY: Coarse breath sounds appreciated throughout the lower lobes bilaterally. GASTROINTESTINAL: Abdomen soft, non-tender, nondistended. GJ tube in left upper quadrant is clean dry and intact MUSCULOSKELETAL: Contracted. Moves all extremities without difficulty and peripheral edema. No Decubitus ulcers NEUROLOGICAL: Eyes are open spontaneously, no tracking. Spontaneously moves 4 extremities but not to command. Extremities are contracted A/P Assessment and Plan Neuro/Psych: History of anoxic brain injury Chronic muscle relaxant use Seizure disorder NOS Continue levetiracetam 1000 mg by PEG tube twice a day for seizure disorder, Seizure precautions As needed lorazepam 0.5-1 mg every 2 hours by PEG tube for agitation Acetaminophen for fever/pain Previously on oxycodone/acetaminophen 5/325 one tablet every 4 hours when necessary pain. Resumed 02/22 CV: Sinus bradycardia History of hypertension History dyslipidemia Lactic acidosis Status post 3 L normal saline in ED. Currently normal saline with 20 mEq KCl at 84 cc an hour. Change to NS at 84 ml per hr No vasopressors at this time. Resp: Acute respiratory failure secondary to aspiration pneumonia Status post tracheostomy exchange TP up to 10 hours 02/25. Increase TP time to 24/7 as tolerated Ventilator bundle. Albuterol/ipratropium every 4 hours aerosols with albuterol nebulizers every 2 hours Wean FiO2 as clinically indicated Chest x-ray 02/22 revealed lower lobe infiltrates bilaterally. CXR 02/25 essentially clear #8 Shiley percutaneous tracheostomy downsized #6 Shiley on 02/21 due to respiratory distress. (Per Dr. Mantilla, unable to pass new 8.0 Shiley and 6.0 was placed) GI: Nausea/vomiting Elevated transaminases History pancreatitis/pseudocyst Follow-up on CT abdomen/pelvis revealed air bronchograms bilateral. Gastric tube in place. No signs of ileus or obstruction. Tube feeding with vital 1.5 goal 50 cc an hour IR exchanged G/J Tube 02/25 Pantoprazole for GI prophylaxis. Docusate sodium/senna twice a day for bowel regimen : Ospina catheter is in place for accurate I's and O's in a critically ill patient- remove and place Condom catheter Endo: Diabetes mellitus Sliding-scale insulin with NovoLog with Accu-Cheks to maintain euglycemia/low regimen every 6 hours Renal: Creatinine currently within normal limits Monitor urine output Accurate I's and O's Heme: Normocytic anemia Thrombocytopenia Chronic Apixaban Follow-up coags. Follow up CBC in AM. Monitor trends Apixaban 5 mg twice a day resumed 02/23 ID: Pseudomonas pneumonia Strep viridans bacteremia History ESBL positive Escherichia coli MDRO positive History MRSA Currently on Zosyn ankd Vanc per ID Dr. Reynolds Blood cultures 2 02/21 strep viridans, sputum culture Pseudomonas. Repeat blood cultures 02/23 neg to date UA, Legionella pneumococcal urinary antigen, influenza all negative/no growth 2-D echocardiogram ordered rule out endocarditis-neg for veg MSK: Muscle contractures PT evaluate and treat FEN: Hypophosphatemia Replacing electrolytes as clinically indicated. Access - Utilize peripheral IV. Central line if indicated Prophylaxis - GI - pantoprazole - DVT - SCD/Apixaban 5 mg twice a day resumed Critical Care: Level 3 Sadia Blanchard MD Feb 26, 2017 11:18
[2017-02-26] MEDS ORDERED: PHARMACY ORDERED LAB ONE (11:45)
--- NOTE | 2017-02-26 12:27 | RADRPT ---
EXAM DATE/TIME: 02/26/2017 11:49 [facility] COMPARISON: CHEST SINGLE AP, February 25, 2017, 17:18. INDICATIONS : Short of breath. MEDICAL HISTORY : Sepsis. SURGICAL HISTORY : Trachestomy. ENCOUNTER: Subsequent ACUITY: 1 week PAIN SCORE: Non-responsive. LOCATION: Bilateral chest FINDINGS: Tracheostomy tube. Left lung is clear. There is increased density at the right base which is stable a nd may reflect mild right lower lobe airspace disease. Heart size mildly prominent. EKG leads are pre sent overlying the chest. CONCLUSION: Right basilar airspace disease suspected. Zana Wadsworth MD on February 26, 2017 at 12:25 Board Certified Radiologist. This report was verified electronically.
[2017-02-26 14:07] LABS: ALKALINE PHOSPHATASE 62 U/L (45-117); ALT (GPT) 45 U/L (12-78); ANION GAP 8 MEQ/L (5-15); AST (GOT) 21 U/L (15-37); BICARBONATE 25.2 MEQ/L (21.0-32.0); BLOOD UREA NITROGEN 9 MG/DL (7-18); CHLORIDE 115 MEQ/L (98-107); GLOMERULAR FILTRATION RATE 53 ML/MIN (>89); POTASSIUM 3.6 MEQ/L (3.5-5.1); SODIUM (NA) 148 MEQ/L (136-145); TOTAL BILIRUBIN ADULT 0.4 MG/DL (0.2-1.0)
[2017-02-26] MEDS ORDERED: EPINEPHrine HCL (1:10,000) 1 MG/10 ML SYRINGE ONE (17:06)
[2017-02-26] MEDS ORDERED: LIDOCAINE HCL 2% 100 MG/5 ML SYRINGE ONE (17:07)
[2017-02-27] VITALS (19 sets, daily range): BP systolic 142–173; BP diastolic 67–77; PULSE 40–104; RESP 16–21; TEMP 99.4–99.6; O2SAT 100
[2017-02-27] MEDS: HYOSCYAMINE 0.125 MG TAB PO SCH ×6 (01:25→20:48)
--- NOTE | 2017-02-27 01:26 | RADRPT ---
EXAM DATE/TIME: 02/26/2017 23:26 [facility] COMPARISON: No previous studies available for comparison. INDICATIONS : Renal failure. MEDICAL HISTORY : Seizures. Hypertension. Anxiexty. MRSA. SURGICAL HISTORY : Tracheostomy. Gastrostomy. G/j tube placement. ENCOUNTER: Initial ACUITY: 1 day PAIN SCORE: Nonresponsive. LOCATION: Bilateral flank MEASUREMENTS: RIGHT KIDNEY: 14.1 x 5.1 x 5.4 cm LEFT KIDNEY: 12.1 x 5.0 x 6.0 cm FINDINGS: RIGHT KIDNEY: Renal cortex is normal in thickness and echotexture. No hydronephrosis, stone, or mass. LEFT KIDNEY: Renal cortex is normal in thickness and echotexture. No hydronephrosis, stone, or mass. BLADDER: Within normal limits given the degree of distension. CONCLUSION: 1. Right kidney is enlarged. No hydronephrosis identified. No acute findings. Stephan Rich MD on February 27, 2017 at 1:23 Board Certified Radiologist. This report was verified electronically.
[2017-02-27] MEDS: ONDANSETRON HCL 4 MG/2 ML VIAL IV PRN (03:10)
[2017-02-27] MEDS: CHLORHEXIDINE GLUCONATE 2 % 1 PACK (2 CLOTHS) TOP SCH (04:00)
[2017-02-27] MEDS: RESP: ALBUTEROL 2.5 MG/IPRATROPIUM 0.5 MG NEB (SCH) INH ×5 (04:22→20:46)
[2017-02-27] MEDS: PIPERACIL-TAZO 4.5 GM PREMIX 100 ML IV SCH ×2 (04:45→09:33)
[2017-02-27] MEDS: INSULIN ASPART SUPPLEMENTAL SCALE SQ SCH ×4 (05:32→18:00)
[2017-02-27 05:45] LABS: AUTOMATED NEUTROPHIL # 4.1 TH/MM3 (1.8-7.7); BASOPHIL % 0.3 % (0.0-2.0); EOSINOPHIL # 0.1 TH/MM3 (0-0.4); EOSINOPHIL % 1.9 % (0.0-4.0); HEMATOCRIT 35.6 % (39.0-51.0); HEMO FLAGS DIFF FINAL; LYMPH % 14.6 % (9.0-44.0); LYMPHOCYTE # 0.8 TH/MM3 (1.0-4.8); MEAN CELL VOLUME 93.1 FL (80.0-100.0); MEAN CORPUSCULAR HEMOGLOBIN 30.6 PG (27.0-34.0); MEAN CORPUSCULAR HGB CONC 32.9 % (32.0-36.0); MONO % 11.1 % (0.0-8.0); NEUT % 72.1 % (16.0-70.0); PLATELET COUNT 125 TH/MM3 (150-450); RED BLOOD COUNT 3.82 MIL/MM3 (4.50-5.90); RED CELL DISTRIBUTION WIDTH 13.2 % (11.6-17.2); WHITE BLOOD COUNT 5.7 TH/MM3 (4.0-11.0)
--- NOTE | 2017-02-27 05:50 | RADRPT ---
EXAM DATE/TIME: 02/27/2017 05:02 [facility] COMPARISON: CHEST SINGLE AP, February 26, 2017, 11:49. INDICATIONS : Respiratory disease. MEDICAL HISTORY : Seizures. Hypertension. SURGICAL HISTORY : Tracheostomy. Gastrostomy. G/j tube placement. ENCOUNTER: Subsequent ACUITY: 1 week PAIN SCORE: Non-responsive. LOCATION: chest FINDINGS: A single view of the chest demonstrates tracheostomy in satisfactory position. Right basilar airspace consolidation similar to February 26. CONCLUSION: 1. Right basilar airspace disease similar to February 26. No new findings. Stephan Rich MD on February 27, 2017 at 5:47 Board Certified Radiologist. This report was verified electronically.
[2017-02-27 06:06] LABS: ANION GAP 8 MEQ/L (5-15); AST (GOT) 24 U/L (15-37); BICARBONATE 25.2 MEQ/L (21.0-32.0); BLOOD UREA NITROGEN 9 MG/DL (7-18); CHLORIDE 111 MEQ/L (98-107); GLOMERULAR FILTRATION RATE 51 ML/MIN (>89); MAGNESIUM 2.3 MG/DL (1.5-2.5); POTASSIUM 3.4 MEQ/L (3.5-5.1); SODIUM (NA) 144 MEQ/L (136-145)
[2017-02-27 06:07] LABS: ALT (GPT) 44 U/L (12-78)
[2017-02-27 06:09] LABS: ALKALINE PHOSPHATASE 63 U/L (45-117); TOTAL BILIRUBIN ADULT 0.5 MG/DL (0.2-1.0)
--- NOTE | 2017-02-27 07:41 | MR ---
cc: JUSTIN ANDERSON M.D. DATE 02/26/2017 PROCEDURE PERFORMED Fiberoptic bronchoscopy, flexible. REASON FOR BRONCHOSCOPY Hemoptysis PROCEDURE Fiberoptic bronchoscopy performed through a tracheostomy tube. The patient did not require any sedation, is with anoxic encephalopathy status post permanent tracheostomy. The scope was introduced through the tracheostomy tube after removing the inner cannula. Oxygen saturation maintained at 100% throughout the procedure. The lower trachea appeared normal. Some heme staining throughout noted. The right and left mainstem bronchi and branches all inspected. No mass lesion or obstruction identified. Old heme stains were removed. Washings obtained and sent for culture. No evidence of active bleeding below the tracheostomy tube. The procedure was very well tolerated. The patient was maintained on ventilatory support post bronchoscopy. IMPRESSION 1. Mild tracheobronchitis 2. Heme staining of lower airway cleared by bronchoscopy. 3. No evidence of active bleeding, mass lesion or other abnormalities. The procedure was well tolerated. Justin Anderson MD WWW/TEENA /5:36 PM /7:25 AM
--- NOTE | 2017-02-27 07:43 | MB ---
cc: JUSTIN ANDERSON M.D. DATE OF CONSULTATION 02/26/2017 REASON FOR CONSULTATION Hemoptysis. HISTORY OF PRESENT ILLNESS The patient is a 31-year-old -Gabonese male with history of anoxic encephalopathy status post respiratory/ventilatory support and tracheostomy placement. The patient has been off ventilatory support today and because of hemoptysis and hypoxemia was placed on ventilatory support. The patient's oxygen saturation on the ventilator is at 100%. No significant desaturation has occurred. The concern was that with the hemoptysis and aspiration of blood, further hypoxemia may occur. The patient opens his eyes, seems to respond. He does not respond to suctioning and has a persistent cough. He did have temperature elevation upon presentation and is being treated for sepsis as well. I am asked to see the patient for his hemoptysis, exact amount is impossible to determine. It occurs as seepage around the tracheal stoma as well as through the tracheostomy tube. PAST MEDICAL HISTORY The patient's past history is that of - 1. Anoxic encephalopathy, as mentioned above, status post tracheostomy. 2. Previous history of upper extremity DVT. 3. Recurrent aspiration pneumonia. 4. Hypertension. 5. Hyperlipidemia. 6. History of pancreatitis with pseudocyst formation. 7. Diabetes mellitus. 8. History of drug abuse. 9. Status post feeding tube placement. For a further detailed history, kindly review the patient's records for more detail. CURRENT MEDICATIONS 1. Tobramycin. 2. Nebulized albuterol and ipratropium. 3. Oxycodone. 4. Acetaminophen as needed. 5. Insulin sliding scale. 6. Bactrim. 7. Protonix. 8. Baclofen. 9. Keppra. 10. Loratadine. 11. Zithromax IV. ALLERGIES HALOPERIDOL. PHYSICAL EXAMINATION GENERAL: On exam the patient opens eyes, does not communicate. VITAL SIGNS: Temperature 98.8 axillary, pulse 50, respirations 16, blood pressure 150/70, oxygen saturation 100% on 100% inspired oxygen fraction. HEENT: Exam unremarkable. NECK: Tracheostomy in place. CHEST: A few scattered rhonchi bilaterally. CARDIAC EXAM: PMI not appreciated. S1 and S2 audible. ABDOMEN: Lax. Bowel sounds audible. Feeding tube in place. EXTREMITIES: No clubbing, cyanosis or edema. LABORATORY DATA White count 12.7, hemoglobin 14, hematocrit 43, platelets 147,000. Sodium 148, potassium 3.8, BUN 90, creatinine 1.8. IMPRESSION 1. Hemoptysis. 2. Respiratory failure, presently on ventilatory support. 3. Sepsis on antibiotic therapy. 4. Anoxic encephalopathy, chronic. 5. Status post tracheostomy, chronic. 6. Diabetes mellitus. 7. Hypertension. 8. Hyperlipidemia. 9. Pancreatitis and pseudocyst formation. 10. Mild azotemia. 11. Abnormal liver function. PLAN 1. The patient's hemoptysis seems mostly related to his tracheostomy either around or at the tip of the trache. His last chest x-ray today is with right basilar atelectasis or infiltrate which is unlikely to be the source of the hemoptysis. All anticoagulation has been held. 2. Would continue his antibiotic therapy for possible underlying infection. 3. Pulmonary toilet will be maintained. 4. Presently on ventilatory support; will wean off as tolerated. 5. Bronchoscopy to identify the source of bleeding if possible and as appropriate. 6. Lavage would be appropriate as well. I do thank you for asking me to partake in Mr. Andersen' care. Sincerely, Justin Anderson MD WWW/TATIANA /5:28 PM /7:23 AM
[2017-02-27] MEDS: CHLORHEXIDINE 0.12% (ORAL KIT) 15 ML CUP MT SCH ×2 (08:00→20:49)
[2017-02-27] MEDS: SODIUM CHLORIDE 0.9% FLUSH 10 ML FLUSH IV FLUSH SCH ×2 (09:00→20:48)
[2017-02-27] MEDS: ARTIFICIAL TEARS OPTH SOLN 15 ML BTL EACH EYE SCH ×3 (09:00→18:00)
[2017-02-27] MEDS: RESP: TOBRAMYCIN SULFATE 80 MG/2 ML NEB NEB SCH ×2 (09:07→23:07)
[2017-02-27] MEDS: PANTOPRAZOLE SODIUM 40 MG VIAL IV SCH (09:32)
[2017-02-27] MEDS: BACLOFEN 20 MG TAB G-TUBE SCH ×3 (09:32→17:24)
[2017-02-27] MEDS: DOCUSATE SODIUM 50 MG/SENNA 8.6 MG TAB PO SCH ×2 (09:32→20:50)
[2017-02-27] MEDS: levETIRAcetam 500 MG/5 ML UDC G-TUBE SCH ×2 (09:32→20:48)
[2017-02-27] MEDS: AZITHROMYCIN INJ 500 MG in SODIUM CHLOR 0.9% 250 ML INJ 250 ML IV SCH (09:32)
[2017-02-27] MEDS: LORATADINE 10 MG TAB G-TUBE SCH (09:33)
--- NOTE | 2017-02-27 10:10 | HHI.CCPN ---
Subjective Remarks/Hospital Course 31-year-old male. Resident of [facility] or rehabilitation. Past medical history includes anoxic brain injury 03/21 Temovate due to Haldol administration, recurrent aspiration pneumoniaMDRO positive MRSA positive ESBL positive Escherichia coli in past, hypertension, dyslipidemia, history of pseudocyst/necrotizing, diabetes mellitus presents with a one-week history of nausea/vomiting according to his mother at this nursing facility. He was also recently diagnosed with a fever started on amoxicillin Upon presentation to the ED, patient was noted of temperature 100.2. Leukocytosis 14.5 and elevated transaminases. Lactic acid 4.1. Received 3 L normal saline. Start empirically on piperacillin/tazobactam and vancomycin. Pancultured. Chest x-ray revealed no acute findings. CT abdomen/pelvis and amylase lipase all pending. Upon presentation the floor, patient was tachycardic in acute respiratory distress. Tracheostomy was exchanged for an 8.0-6.0 Shiley. Patient is currently sedated on the ventilator on Midazolam And fentanyl drips. 02/22: Asymptomatically Bradycardic overnight. CT abdomen/pelvis revealed air bronchograms lower lobes bilateral lungs otherwise unremarkable. Will initiate tube feeding today. Potassium will be replaced. Subjective 02/23: Became tachycardic overnight with movement. We'll attempt PSV trial today. Off all continuous sedation and analgesia. 02/24: Remains intubated, moves all extremities. tolerating CPAP 06/10. CXR mild basilar infiltrated 02/25: Remains off vasopressor. Tolerated TP 3-4 hours yesterday. Tmax 100.8. Neuro at baseline 02/26: Tolerated TP up to 10 hour yesterday. Bloody trach secretions has almost resolved. Chest x-ray is unchanged. Fever trending down 02/27: Hypertensive. Vomited X 2, hold TFs, add reglan. Persistent minimal bloody secretions. Objective Vital Signs Date Time Temp Pulse Resp B/P (MAP) Pulse Ox O2 Delivery O2 Flow Rate FiO2 02/27/17 08:54 100 45 02/27/17 06:00 48 02/27/17 04:30 Ventilator 02/27/17 04:00 99.6 21 167/73 (104) 02/25/17 09:47 6.00 Intake and Output 02/27/17 02/27/17 02/27/17 07:59 15:59 23:59 Intake Total 1190 ml Output Total 600 ml Balance 590 ml Result Diagram: 02/27/17 0524 02/27/17 0524 Other Results Microbiology Date/Time Source Procedure Growth Status 02/24/17 17:40 Sputum Endotracheal Gram Stain - Final Complete 02/24/17 17:40 Sputum Culture - Final Pseudomonas Aeruginosa Complete Imaging Last Impressions Chest X-Ray 02/22/17 0000 Signed Impressions: Service Date/Time: Wednesday, February 22, 2017 03:56 - CONCLUSION: 1. Mild basilar airspace disease. No significant effusion. No pneumothorax. Stephan Rich MD Sinuses CT 02/21/17 0000 Signed Impressions: Service Date/Time: Tuesday, February 21, 2017 22:44 - CONCLUSION: 1. No evidence for acute sinusitis. Mucosal thickening right maxillary sinus. Stephan Rich MD Abdomen/Pelvis CT 02/21/17 0000 Signed Impressions: Service Date/Time: Tuesday, February 21, 2017 22:47 - CONCLUSION: 1. Basilar dependent lung consolidation with air bronchograms. Differential diagnosis includes pneumonia and aspiration. 2. Feeding gastrojejunostomy present. No bowel dilatation or evidence for obstruction. Mild constipation. Stephan Rich MD Objective Remarks GENERAL: 31-year-old -Yemeni male, critically ill currently resting in bed on TP via tracheostomy SKIN: Dry. No rash. No rash. HEAD: Atraumatic. Normocephalic. EYES: Pupils equal and round about 3 mm bilaterally. No scleral icterus. No injection or drainage. ENT: No nasal bleeding or discharge. Mucous membranes pink and moist. NECK: Trachea midline. No JVD. Bloody secretions around trach site, and endotracheally. #6 Shiley CARDIOVASCULAR: Bradycardiac, RR. S1, S2 no S4. No murmurs appreciated RESPIRATORY: Coarse breath sounds appreciated throughout the lower lobes bilaterally. GASTROINTESTINAL: Abdomen soft, non-tender, nondistended. GJ tube in left upper quadrant is clean dry and intact MUSCULOSKELETAL: Contracted. Moves all extremities without difficulty and peripheral edema. No Decubitus ulcers NEUROLOGICAL: Eyes are open spontaneously, no tracking. Spontaneously moves 4 extremities but not to command. Extremities are contracted A/P Assessment and Plan Neuro/Psych: History of anoxic brain injury Chronic muscle relaxant use Seizure disorder NOS Continue levetiracetam 1000 mg by PEG tube twice a day for seizure disorder, Seizure precautions As needed lorazepam 0.5-1 mg every 2 hours by PEG tube for agitation Acetaminophen for fever/pain Previously on oxycodone/acetaminophen 5/325 one tablet every 4 hours when necessary pain. Resumed 02/22 CV: Sinus bradycardia History of hypertension History dyslipidemia Lactic acidosis Status post 3 L normal saline in ED. Currently normal saline with 20 mEq KCl at 84 cc an hour. Change to NS at 84 ml per hr No vasopressors at this time. Resp: Acute respiratory failure secondary to aspiration pneumonia Status post tracheostomy exchange TP up to 10 hours 02/25. Increase TP time to 24/7 as tolerated Ventilator bundle. Albuterol/ipratropium every 4 hours aerosols with albuterol nebulizers every 2 hours Wean FiO2 as clinically indicated Chest x-ray 02/22 revealed lower lobe infiltrates bilaterally. CXR 02/25 essentially clear #8 Shiley percutaneous tracheostomy downsized #6 Shiley on 02/21 due to respiratory distress. (Per Dr. Mantilla, unable to pass new 8.0 Shiley and 6.0 was placed) GI: Nausea/vomiting Elevated transaminases History pancreatitis/pseudocyst Follow-up on CT abdomen/pelvis revealed air bronchograms bilateral. Gastric tube in place. No signs of ileus or obstruction. Tube feeding with vital 1.5 goal 50 cc an hour IR exchanged G/J Tube 02/25 Pantoprazole for GI prophylaxis. Docusate sodium/senna twice a day for bowel regimen : Ospina catheter is in place for accurate I's and O's in a critically ill patient- remove and place Condom catheter Endo: Diabetes mellitus Sliding-scale insulin with NovoLog with Accu-Cheks to maintain euglycemia/low regimen every 6 hours Renal: Creatinine currently within normal limits Monitor urine output Accurate I's and O's Heme: Normocytic anemia Thrombocytopenia Chronic Apixaban Follow-up coags. Follow up CBC in AM. Monitor trends Apixaban 5 mg twice a day resumed 02/23 ID: Pseudomonas pneumonia Strep viridans bacteremia History ESBL positive Escherichia coli MDRO positive History MRSA Currently on Zosyn ankd Vanc per ID Dr. Reynolds Blood cultures 2 02/21 strep viridans, sputum culture Pseudomonas. Repeat blood cultures 02/23 neg to date UA, Legionella pneumococcal urinary antigen, influenza all negative/no growth 2-D echocardiogram ordered rule out endocarditis-neg for veg MSK: Muscle contractures PT evaluate and treat FEN: Hypophosphatemia Replacing electrolytes as clinically indicated. Access - Utilize peripheral IV. Central line if indicated Prophylaxis - GI - pantoprazole - DVT - SCD/Apixaban 5 mg twice a day held Overall impression: Minimal improvement overnight. Franklin Bahena MD Feb 27, 2017 10:10
[2017-02-27] MEDS: SODIUM CHLOR 0.9% 1000 ML INJ 1,000 ML IV SCH (11:20)
--- NOTE | 2017-02-27 12:47 | HHI.IDPN ---
Subjective Subjective Remarks Patient is a 31-year-old male, who is in chronic vegetative state, due to anoxic brain injury, as a chronic trach, with sides in long-term facility at [place], brought into the hospital for further evaluation of fever. Patient apparently has been having problem with nausea and vomiting for about a week, and he also started having problem with increased tracheal secretions. More recently he is had a fever, and patient was brought into the hospital for further evaluation and treatment. Patient has had previous hospitalization for pneumonia. On presentation, he was found to have leukocytosis. His temperature was up to 100.2, lactic acid elevated at 4.1. His chest x-ray was negative. CT of the abdomen and pelvis though showed evidence of basilar consolidation with air bronchograms suggestive of pneumonia. He has had previous history of infection with MRSA, as well as Escherichia coli ESBL positive. Patient currently is on the vent, and has no meaningful interaction. He is on the vent, and looks comfortable. His WBC is down to normal. His blood pressure is hemodynamically stable. Infectious disease consultation has been requested to assist in antibiotic management of this patient with aspiration pneumonia, and known history of MDRO infections. Notes reviewed Temps occ 99+ Has blood in trach Had bronch yesterday to evaluate hemoptysis - no active bleeding seen Creatinine has increased BP ok, not on pressors BC with Viridans Strep I to PCN and Amp Repeat BC negative Sputum with Pseudomonas, R to Primaxin, and Levaquin UC negative CXR with stable basilar infiltrates Bronch C/S pending Antibiotics Zosyn Vancomycin Zithromax Past Medical History Chronic tracheostomy History of left upper extremity DVT Recurrent aspiration pneumonia Hypertension Dyslipidemia History of pancreatitis/pseudocyst Diabetes mellitus Chronic narcotic use Chronic muscle relaxant use Hx MDRO infections - MRSA, ESBL+ Past Surgical History Tracheostomy, subsequent revision G/J tube placement and revision Allergies: Coded Allergies: haloperidol (Unverified Adverse Reaction, Severe, Seizures, 02/21/17) Objective . Vital Signs Date Time Temp Pulse Resp B/P (MAP) Pulse Ox O2 Delivery O2 Flow Rate FiO2 02/27/17 11:14 100 45 02/27/17 08:54 100 45 02/27/17 06:00 48 02/27/17 04:30 100 Ventilator 02/27/17 04:30 100 50 02/27/17 04:00 50 02/27/17 04:00 99.6 42 21 167/73 (104) 100 02/27/17 04:00 42 02/27/17 02:00 40 02/27/17 00:01 100 70 02/27/17 00:00 70 02/27/17 00:00 99.4 48 16 156/68 (97) 100 02/27/17 00:00 48 02/26/17 23:59 100 Ventilator 02/26/17 22:00 50 02/26/17 20:14 100 Ventilator 02/26/17 20:07 100 100 02/26/17 20:00 99.3 42 19 162/68 (99) 100 02/26/17 20:00 100 02/26/17 20:00 52 02/26/17 19:00 100 Mechanical Ventilator 100 02/26/17 18:00 40 02/26/17 17:35 100 100 02/26/17 17:00 100 100 02/26/17 16:30 98.8 40 16 158/68 (98) 100 02/26/17 16:00 100 02/26/17 16:00 42 02/26/17 16:00 99.5 42 16 158/68 (98) 100 02/26/17 15:35 99.5 42 16 153/67 (95) 100 02/26/17 15:20 99.7 54 16 149/62 (91) 100 02/26/17 14:00 50 02/27/17 02/27/17 02/28/17 15:00 23:00 07:00 Intake Total 692 ml Balance 692 ml Intake IV Total 692 ml . Laboratory Tests Test 02/25/17 23:42 02/27/17 05:24 White Blood Count 4.7 TH/MM3 5.7 TH/MM3 Red Blood Count 4.63 MIL/MM3 3.82 MIL/MM3 Hemoglobin 14.5 GM/DL 11.7 GM/DL Hematocrit 43.5 % 35.6 % Mean Corpuscular Volume 94.0 FL 93.1 FL Mean Corpuscular Hemoglobin 31.4 PG 30.6 PG Mean Corpuscular Hemoglobin Concent 33.4 % 32.9 % Red Cell Distribution Width 13.4 % 13.2 % Platelet Count 147 TH/MM3 125 TH/MM3 Mean Platelet Volume 9.9 FL 10.5 FL Neutrophils (%) (Auto) 61.0 % 72.1 % Lymphocytes (%) (Auto) 23.0 % 14.6 % Monocytes (%) (Auto) 12.6 % 11.1 % Eosinophils (%) (Auto) 3.1 % 1.9 % Basophils (%) (Auto) 0.3 % 0.3 % Neutrophils # (Auto) 2.9 TH/MM3 4.1 TH/MM3 Lymphocytes # (Auto) 1.1 TH/MM3 0.8 TH/MM3 Monocytes # (Auto) 0.6 TH/MM3 0.6 TH/MM3 Eosinophils # (Auto) 0.1 TH/MM3 0.1 TH/MM3 Basophils # (Auto) 0.0 TH/MM3 0.0 TH/MM3 CBC Comment DIFF FINAL DIFF FINAL Differential Comment Laboratory Tests Test 02/26/17 04:15 02/26/17 13:20 02/27/17 05:24 Creatinine 1.57 MG/DL 1.83 MG/DL 1.89 MG/DL Estimat Glomerular Filtration Rate 63 ML/MIN 53 ML/MIN 51 ML/MIN Blood Urea Nitrogen 9 MG/DL 9 MG/DL Random Glucose 94 MG/DL 114 MG/DL Total Protein 7.0 GM/DL 6.9 GM/DL Albumin 2.9 GM/DL 2.9 GM/DL Calcium Level 8.6 MG/DL 8.3 MG/DL Alkaline Phosphatase 62 U/L 63 U/L Aspartate Amino Transf (AST/SGOT) 21 U/L 24 U/L Alanine Aminotransferase (ALT/SGPT) 45 U/L 44 U/L Total Bilirubin 0.4 MG/DL 0.5 MG/DL Sodium Level 148 MEQ/L 144 MEQ/L Potassium Level 3.6 MEQ/L 3.4 MEQ/L Chloride Level 115 MEQ/L 111 MEQ/L Carbon Dioxide Level 25.2 MEQ/L 25.2 MEQ/L Anion Gap 8 MEQ/L 8 MEQ/L Magnesium Level 2.3 MG/DL Microbiology Date/Time Source Procedure Growth Status 02/26/17 17:13 Bronchial Washings Other Gram Stain - Final Resulted 02/26/17 17:13 Bronchial Washings Other Bronchial Culture Pending Resulted 02/24/17 17:40 Sputum Endotracheal Gram Stain - Final Complete 02/24/17 17:40 Sputum Culture - Final Pseudomonas Aeruginosa Complete Imaging Last Impressions Chest X-Ray 02/23/17 0600 Signed Impressions: Service Date/Time: Thursday, February 23, 2017 04:16 - CONCLUSION: 1. Marked rightward rotation of the patient. 2. Stable minimal bibasilar airspace disease , left greater than right. 3. No significant change from prior Beny Whalen MD Sinuses CT 02/21/17 0000 Signed Impressions: Service Date/Time: Tuesday, February 21, 2017 22:44 - CONCLUSION: 1. No evidence for acute sinusitis. Mucosal thickening right maxillary sinus. Stephan Rich MD Abdomen/Pelvis CT 02/21/17 0000 Signed Impressions: Service Date/Time: Tuesday, February 21, 2017 22:47 - CONCLUSION: 1. Basilar dependent lung consolidation with air bronchograms. Differential diagnosis includes pneumonia and aspiration. 2. Feeding gastrojejunostomy present. No bowel dilatation or evidence for obstruction. Mild constipation. Stephan Rich MD Physical Exam GENERAL: awake but no interaction, looks comfortable on the vent SKIN: Warm and dry. No generalized rash, no ecchymoses and no evidence of embolic lesions. HEAD: Atraumatic. Normocephalic. No temporal wasting, or tenderness. EYES: [place] conjunctiva. No petechia or hemorrhage. Pupils equal, round and reactive to light. No scleral icterus. No injection or drainage. EARS, NOSE AND THROAT: Nose without bleeding or purulent nasal discharge. A lot of oral secretions NECK: Tracheostomy site with bloody drainage. CARDIOVASCULAR: Regular rate and rhythm. No murmurs, rubs or gallops heard RESPIRATORY: Coarse BS bilaterally, occ rhonchi on R ABDOMEN: Soft, nondistended. Bowel sounds present and normoactive. No reaction to palpation. G/J tube site ok EXTREMITIES: No clubbing, cyanosis, or edema. No joint effusion. HIs UE are less spastic. Well perfused and warm. NEUROLOGICAL: Unresponsive PSYCHIATRIC: Unable to assess LINE: No evidence of infection : Ospina in place, urine looks clear Assessment & Plan Remarks IMPRESSION Sepsis on admission, due to PNA - sputum with Pseudomonas Viridans Strep bacteremia, source? - echo ok Aspiration PNA, has had N/V x 1 week Chronic vegetative state due to anoxic brain injury Hx MRSA and E coli ESBL (+) infections Renal insufficiency RECOMMENDATION Follow C/S and adjust Abx Change Zosyn to Cefepime - should have coverage on Viridans Strep Stop Vanco UA, urine for eos Follow Creatinine Monitor temps Monitor progress Weaning per CCM D/W RN Dr Lilia Myles covering in my absence 02/28-03/02 Michelle Reynolds MD Feb 27, 2017 12:47
[2017-02-27] MEDS: METOCLOPRAMIDE HCL 10 MG/2 ML VIAL IV PUSH SCH ×2 (14:04→22:50)
[2017-02-27] MEDS: CEFEPIME INJ 2,000 MG in SODIUM CHLORIDE 0.9% INJ 100 ML IV SCH (14:08)
[2017-02-27] MEDS: oxyCODONE/ACETAMINOPHEN 5 MG/325 MG TAB PO PRN (15:25)
[2017-02-27 16:13] LABS: BLOOD, URINE NEG (NEG); GLUCOSE,URINE NEG (NEG); KETONE, URINE NEG (NEG); NITRITE,URINE NEG (NEG); URINE COLOR LIGHT-YELLOW (YELLW/STRAW)
--- NOTE | 2017-02-27 17:16 | HHI.PR ---
Subjective Remarks alert on the ventilator no further hemoptysis Objective Vital Signs Date Time Temp Pulse Resp B/P (MAP) Pulse Ox O2 Delivery O2 Flow Rate FiO2 02/27/17 16:57 100 45 02/27/17 16:00 99.6 42 16 173/77 (109) 100 02/27/17 16:00 42 02/27/17 16:00 50 02/27/17 14:07 100 45 02/27/17 14:00 40 02/27/17 12:00 99.4 40 16 142/67 (92) 100 02/27/17 12:00 40 02/27/17 12:00 50 02/27/17 11:14 100 45 02/27/17 10:00 44 02/27/17 08:54 100 45 02/27/17 08:00 44 02/27/17 08:00 50 02/27/17 08:00 99.6 44 16 164/70 (101) 100 02/27/17 07:00 100 Mechanical Ventilator 50 02/27/17 06:00 48 02/27/17 04:30 100 Ventilator 02/27/17 04:30 100 50 02/27/17 04:00 50 02/27/17 04:00 99.6 42 21 167/73 (104) 100 02/27/17 04:00 42 02/27/17 02:00 40 02/27/17 00:01 100 70 02/27/17 00:00 70 02/27/17 00:00 99.4 48 16 156/68 (97) 100 02/27/17 00:00 48 02/26/17 23:59 100 Ventilator 02/26/17 22:00 50 02/26/17 20:14 100 Ventilator 02/26/17 20:07 100 100 02/26/17 20:00 99.3 42 19 162/68 (99) 100 02/26/17 20:00 100 02/26/17 20:00 52 02/26/17 19:00 100 Mechanical Ventilator 100 02/26/17 18:00 40 02/26/17 17:35 100 100 I/O 02/26/17 02/26/17 02/26/17 02/27/17 02/27/17 02/27/17 07:00 15:00 23:00 07:00 15:00 23:00 Intake Total 634 ml 1644 ml 1190 ml 692 ml Output Total 850 ml 1625 ml 600 ml Balance -216 ml 19 ml 590 ml 692 ml Intake IV Total 1363 ml 900 ml 692 ml Tube Feeding 394 ml 161 ml 170 ml Tube Irrigant 240 ml 120 ml 120 ml Output Urine Total 850 ml 1625 ml 600 ml # Bowel Movements 0 1 1 Result Diagram: 02/27/1752302/27/17523 Objective Remarks GENERAL: SKIN: Warm and dry. HEAD: Atraumatic. Normocephalic. EYES: Pupils equal and round. No scleral icterus. No injection or drainage. ENT: No nasal bleeding or discharge. Mucous membranes pink and moist. NECK: Trachea midline. No JVD., tracheostomy in place CARDIOVASCULAR: Regular rate and rhythm. RESPIRATORY: No accessory muscle use. Clear to auscultation. Breath sounds equal bilaterally. GASTROINTESTINAL: Abdomen soft, non-tender, nondistended. Hepatic and splenic margins not palpable. MUSCULOSKELETAL: Extremities without clubbing, cyanosis, or edema. No obvious deformities. NEUROLOGICAL: Awake and alert. No obvious cranial nerve deficits. Motor grossly within normal limits. Five out of 5 muscle strength in the arms and legs. Normal speech. PSYCHIATRIC: Appropriate mood and affect; insight and judgment normal. Assessment and Plan Assessment and Plan respiratory failue encephalopathy s/p tracheostomy sepsis hemoptysis , resolved plan vent support wean as tolerated antibx pulmonary toilet outlook Justin Richardson MD Feb 27, 2017 17:16
[2017-02-27] MEDS: hydrALAZINE HCL 20 MG/ML VIAL IV PUSH PRN (17:25)
[2017-02-28] VITALS (18 sets, daily range): BP systolic 152–181; BP diastolic 64–87; PULSE 38–105; RESP 16–18; TEMP 99–99.9; O2SAT 93–100
[2017-02-28] MEDS: HYOSCYAMINE 0.125 MG TAB PO SCH ×6 (00:26→20:44)
[2017-02-28] MEDS: RESP: ALBUTEROL 2.5 MG/IPRATROPIUM 0.5 MG NEB (SCH) INH ×4 (01:16→11:05)
[2017-02-28] MEDS: CEFEPIME INJ 2,000 MG in SODIUM CHLORIDE 0.9% INJ 100 ML IV SCH ×2 (02:37→13:14)
[2017-02-28] MEDS: CHLORHEXIDINE GLUCONATE 2 % 1 PACK (2 CLOTHS) TOP SCH (04:00)
[2017-02-28 05:18] LABS: BICARBONATE 25.4 MEQ/L (21.0-32.0); POTASSIUM 3.3 MEQ/L (3.5-5.1)
[2017-02-28] MEDS: INSULIN ASPART SUPPLEMENTAL SCALE SQ SCH ×4 (06:00→18:00)
[2017-02-28] MEDS: METOCLOPRAMIDE HCL 10 MG/2 ML VIAL IV PUSH SCH ×3 (06:32→21:20)
[2017-02-28] MEDS: SODIUM CHLORIDE 0.9% FLUSH 10 ML FLUSH IV FLUSH SCH ×2 (07:54→20:43)
[2017-02-28] MEDS: LORATADINE 10 MG TAB G-TUBE SCH (08:15)
[2017-02-28] MEDS: CHLORHEXIDINE 0.12% (ORAL KIT) 15 ML CUP MT SCH ×2 (08:15→20:41)
[2017-02-28] MEDS: PANTOPRAZOLE SODIUM 40 MG VIAL IV SCH (08:15)
[2017-02-28] MEDS: DOCUSATE SODIUM 50 MG/SENNA 8.6 MG TAB PO SCH ×2 (08:15→20:44)
[2017-02-28] MEDS: BACLOFEN 20 MG TAB G-TUBE SCH ×3 (08:15→16:34)
[2017-02-28] MEDS: SODIUM CHLOR 0.9% 1000 ML INJ 1,000 ML IV SCH ×3 (08:16→19:12)
[2017-02-28] MEDS: levETIRAcetam 500 MG/5 ML UDC G-TUBE SCH ×2 (08:16→20:43)
[2017-02-28] MEDS: ARTIFICIAL TEARS OPTH SOLN 15 ML BTL EACH EYE SCH ×3 (08:16→16:34)
--- NOTE | 2017-02-28 08:44 | HHI.PR ---
Subjective Remarks alert on the ventilator no further hemoptysis Objective Vital Signs Date Time Temp Pulse Resp B/P (MAP) Pulse Ox O2 Delivery O2 Flow Rate FiO2 02/28/17 08:22 40 02/28/17 08:22 100 40 02/28/17 07:00 100 Mechanical Ventilator 40 02/28/17 06:00 64 02/28/17 04:51 100 40 02/28/17 04:00 50 02/28/17 04:00 52 02/28/17 04:00 99.9 52 16 181/87 (118) 93 02/28/17 02:00 42 02/28/17 01:20 100 40 02/28/17 00:00 38 02/28/17 00:00 50 02/28/17 00:00 99.7 38 16 152/71 (98) 100 02/27/17 22:00 68 02/27/17 20:46 100 45 02/27/17 20:00 99.6 76 16 149/68 (95) 100 02/27/17 20:00 50 02/27/17 20:00 100 02/27/17 19:00 100 Mechanical Ventilator 45 02/27/17 18:00 104 02/27/17 16:57 100 45 02/27/17 16:00 99.6 42 16 173/77 (109) 100 02/27/17 16:00 42 02/27/17 16:00 50 02/27/17 14:07 100 45 02/27/17 14:00 40 02/27/17 12:00 99.4 40 16 142/67 (92) 100 02/27/17 12:00 40 02/27/17 12:00 50 02/27/17 11:14 100 45 02/27/17 10:00 44 02/27/17 08:54 100 45 I/O 02/27/17 02/27/17 02/27/17 02/28/17 02/28/17 02/28/17 06:59 14:59 22:59 06:59 14:59 22:59 Intake Total 1190 ml 782 ml 1544 ml 959 ml Output Total 600 ml 1725 ml 185 ml Balance 590 ml 782 ml -181 ml 774 ml Intake IV Total 900 ml 782 ml 1277 ml 759 ml Tube Feeding 170 ml 187 ml 200 ml Tube Irrigant 120 ml 80 ml Output Urine Total 600 ml 1725 ml 185 ml # Voids 1 # Bowel Movements 1 0 Result Diagram: 02/27/17 0524 02/28/17 0428 Objective Remarks GENERAL: SKIN: Warm and dry. HEAD: Atraumatic. Normocephalic. EYES: Pupils equal and round. No scleral icterus. No injection or drainage. ENT: No nasal bleeding or discharge. Mucous membranes pink and moist. NECK: Trachea midline. No JVD., tracheostomy in place CARDIOVASCULAR: Regular rate and rhythm. RESPIRATORY: No accessory muscle use. Clear to auscultation. Breath sounds equal bilaterally. GASTROINTESTINAL: Abdomen soft, non-tender, nondistended. Hepatic and splenic margins not palpable. MUSCULOSKELETAL: Extremities without clubbing, cyanosis, or edema. No obvious deformities. NEUROLOGICAL: Awake and alert. No obvious cranial nerve deficits. Motor grossly within normal limits. Five out of 5 muscle strength in the arms and legs. Normal speech. PSYCHIATRIC: Appropriate mood and affect; insight and judgment normal. Assessment and Plan Assessment and Plan respiratory failue encephalopathy s/p tracheostomy sepsis hemoptysis , resolved plan vent support wean as tolerated antibx pulmonary toilet outlook poor Justin Anderson MD Feb 28, 2017 08:44
[2017-02-28] MEDS: RESP: TOBRAMYCIN SULFATE 80 MG/2 ML NEB NEB SCH ×2 (08:46→20:47)
[2017-02-28] MEDS: hydrALAZINE HCL 20 MG/ML VIAL IV PUSH PRN ×3 (09:34→17:13)
[2017-02-28] MEDS: oxyCODONE/ACETAMINOPHEN 5 MG/325 MG TAB PO PRN ×3 (09:35→21:21)
[2017-02-28] MEDS ORDERED: POTASSIUM CHLORIDE 25 MEQ EFFERVESCENT TAB PO ONE (12:00)
[2017-02-28] MEDS: hydrALAZINE HCL 50 MG TAB PO SCH ×2 (13:14→21:20)
[2017-02-28] MEDS ORDERED: RESP: LIDOCAINE HCL 2% 2 ML NEB NEB PRN ×2 (13:30)
--- NOTE | 2017-02-28 16:16 | HHI.CCPN ---
Subjective Remarks/Hospital Course 31-year-old male. Resident of [facility] or rehabilitation. Past medical history includes anoxic brain injury 03/21 Temovate due to Haldol administration, recurrent aspiration pneumoniaMDRO positive MRSA positive ESBL positive Escherichia coli in past, hypertension, dyslipidemia, history of pseudocyst/necrotizing, diabetes mellitus presents with a one-week history of nausea/vomiting according to his mother at this nursing facility. He was also recently diagnosed with a fever started on amoxicillin Upon presentation to the ED, patient was noted of temperature 100.2. Leukocytosis 14.5 and elevated transaminases. Lactic acid 4.1. Received 3 L normal saline. Start empirically on piperacillin/tazobactam and vancomycin. Pancultured. Chest x-ray revealed no acute findings. CT abdomen/pelvis and amylase lipase all pending. Upon presentation the floor, patient was tachycardic in acute respiratory distress. Tracheostomy was exchanged for an 8.0-6.0 Shiley. Patient is currently sedated on the ventilator on Midazolam And fentanyl drips. 02/22: Asymptomatically Bradycardic overnight. CT abdomen/pelvis revealed air bronchograms lower lobes bilateral lungs otherwise unremarkable. Will initiate tube feeding today. Potassium will be replaced. Subjective 02/23: Became tachycardic overnight with movement. We'll attempt PSV trial today. Off all continuous sedation and analgesia. 02/24: Remains intubated, moves all extremities. tolerating CPAP 06/10. CXR mild basilar infiltrated 02/25: Remains off vasopressor. Tolerated TP 3-4 hours yesterday. Tmax 100.8. Neuro at baseline 02/26: Tolerated TP up to 10 hour yesterday. Bloody trach secretions has almost resolved. Chest x-ray is unchanged. Fever trending down 02/27: Hypertensive. Vomited X 2, hold TFs, add reglan. Persistent minimal bloody secretions. 02/28: Failed SBT again today. Pseudomonas persists in sputum. Objective Vital Signs Date Time Temp Pulse Resp B/P (MAP) Pulse Ox O2 Delivery O2 Flow Rate FiO2 02/28/17 15:10 16 02/28/17 14:00 105 02/28/17 13:11 100 40 02/28/17 12:00 99.0 168/75 (106) 02/28/17 07:00 Mechanical Ventilator 02/25/17 09:47 6.00 Intake and Output 02/28/17 02/28/17 03/01/17 08:00 16:00 00:00 Intake Total 959 ml Output Total 185 ml Balance 774 ml Result Diagram: 02/27/17 0524 02/28/17 0428 Other Results Microbiology Date/Time Source Procedure Growth Status 02/26/17 17:13 Bronchial Washings Other Gram Stain - Final Complete 02/26/17 17:13 Bronchial Washings Other Bronchial Culture - Final RARE GROWTH NORMAL RESPIRATORY KENAN Complete Imaging Last Impressions Chest X-Ray 02/22/17 0000 Signed Impressions: Service Date/Time: Wednesday, February 22, 2017 03:56 - CONCLUSION: 1. Mild basilar airspace disease. No significant effusion. No pneumothorax. Stephan Rich MD Sinuses CT 02/21/17 0000 Signed Impressions: Service Date/Time: Tuesday, February 21, 2017 22:44 - CONCLUSION: 1. No evidence for acute sinusitis. Mucosal thickening right maxillary sinus. Stephan Rich MD Abdomen/Pelvis CT 02/21/17 0000 Signed Impressions: Service Date/Time: Tuesday, February 21, 2017 22:47 - CONCLUSION: 1. Basilar dependent lung consolidation with air bronchograms. Differential diagnosis includes pneumonia and aspiration. 2. Feeding gastrojejunostomy present. No bowel dilatation or evidence for obstruction. Mild constipation. Stephan Rich MD Objective Remarks GENERAL: 31-year-old -[place] male, critically ill currently resting in bed on TP via tracheostomy SKIN: Dry. No rash. No rash. HEAD: Atraumatic. Normocephalic. EYES: Pupils equal and round about 3 mm bilaterally. No scleral icterus. No injection or drainage. ENT: No nasal bleeding or discharge. Mucous membranes pink and moist. NECK: Trachea midline. No JVD. Bloody secretions around trach site, and endotracheally. #6 Shiley CARDIOVASCULAR: Bradycardiac, RR. S1, S2 no S4. No murmurs appreciated RESPIRATORY: Coarse breath sounds appreciated throughout the lower lobes bilaterally. GASTROINTESTINAL: Abdomen soft, non-tender, nondistended. GJ tube in left upper quadrant is clean dry and intact MUSCULOSKELETAL: Contracted. Moves all extremities without difficulty and peripheral edema. No Decubitus ulcers NEUROLOGICAL: Eyes are open spontaneously, no tracking. Spontaneously moves 4 extremities but not to command. Extremities are contracted A/P Assessment and Plan Neuro/Psych: History of anoxic brain injury Chronic muscle relaxant use Seizure disorder NOS Continue levetiracetam 1000 mg by PEG tube twice a day for seizure disorder, Seizure precautions As needed lorazepam 0.5-1 mg every 2 hours by PEG tube for agitation Acetaminophen for fever/pain Previously on oxycodone/acetaminophen 5/325 one tablet every 4 hours when necessary pain. Resumed 02/22 CV: Sinus bradycardia History of hypertension History dyslipidemia Lactic acidosis Status post 3 L normal saline in ED. Currently normal saline with 20 mEq KCl at 84 cc an hour. Change to NS at 84 ml per hr No vasopressors at this time. Resp: Acute respiratory failure secondary to aspiration pneumonia Status post tracheostomy exchange TP up to 10 hours 02/25. Increase TP time to 24/7 as tolerated Ventilator bundle. Albuterol/ipratropium every 4 hours aerosols with albuterol nebulizers every 2 hours Wean FiO2 as clinically indicated Chest x-ray 02/22 revealed lower lobe infiltrates bilaterally. CXR 02/25 essentially clear #8 Shiley percutaneous tracheostomy downsized #6 Shiley on 02/21 due to respiratory distress. (Per Dr. Mantilla, unable to pass new 8.0 Shiley and 6.0 was placed) GI: Nausea/vomiting Elevated transaminases History pancreatitis/pseudocyst Follow-up on CT abdomen/pelvis revealed air bronchograms bilateral. Gastric tube in place. No signs of ileus or obstruction. Tube feeding with vital 1.5 goal 50 cc an hour IR exchanged G/J Tube 02/25 Pantoprazole for GI prophylaxis. Docusate sodium/senna twice a day for bowel regimen : Ospina catheter is in place for accurate I's and O's in a critically ill patient- remove and place Condom catheter Endo: Diabetes mellitus Sliding-scale insulin with NovoLog with Accu-Cheks to maintain euglycemia/low regimen every 6 hours Renal: Creatinine currently within normal limits Monitor urine output Accurate I's and O's Heme: Normocytic anemia Thrombocytopenia Chronic Apixaban Follow-up coags. Follow up CBC in AM. Monitor trends Apixaban 5 mg held. ID: Pseudomonas pneumonia Strep viridans bacteremia History ESBL positive Escherichia coli MDRO positive History MRSA Currently on Zosyn ankd Vanc per ID Dr. Reynolds Blood cultures 2 02/21 strep viridans, sputum culture Pseudomonas. Repeat blood cultures 02/23 neg to date UA, Legionella pneumococcal urinary antigen, influenza all negative/no growth 2-D echocardiogram ordered rule out endocarditis-neg for veg MSK: Muscle contractures PT evaluate and treat FEN: Hypophosphatemia Replacing electrolytes as clinically indicated. Access - Utilize peripheral IV. Central line if indicated Prophylaxis - GI - pantoprazole - DVT - SCD/Apixaban 5 mg twice a day held Overall impression: Minimal improvement overnight. Prognosis poor. Franklin Bahena MD Feb 28, 2017 16:16
--- NOTE | 2017-02-28 17:16 | HHI.IDPN ---
Subjective Subjective Remarks Delayed entry. ID [id number] for Patient is a 31-year-old male, who is in chronic vegetative state, due to anoxic brain injury, as a chronic trach, with sides in long-term facility at [facility], brought into the hospital for further evaluation of fever. Patient apparently has been having problem with nausea and vomiting for about a week, and he also started having problem with increased tracheal secretions. More recently he is had a fever, and patient was brought into the hospital for further evaluation and treatment. Patient has had previous hospitalization for pneumonia. On presentation, he was found to have leukocytosis. His temperature was up to 100.2, lactic acid elevated at 4.1. His chest x-ray was negative. CT of the abdomen and pelvis though showed evidence of basilar consolidation with air bronchograms suggestive of pneumonia. He has had previous history of infection with MRSA, as well as Escherichia coli ESBL positive. Patient currently is on the vent, and has no meaningful interaction. He is on the vent, and looks comfortable. His WBC is down to normal. His blood pressure is hemodynamically stable. Infectious disease consultation has been requested to assist in antibiotic management of this patient with aspiration pneumonia, and known history of MDRO infections. Notes reviewed Temps occ 99+ Has blood in trach Had bronch yesterday to evaluate hemoptysis - no active bleeding seen Creatinine has increased BP ok, not on pressors BC with Viridans Strep I to PCN and Amp Repeat BC negative Sputum with Pseudomonas, R to Primaxin, and Levaquin UC negative CXR with stable basilar infiltrates Bronch C/S pending Antibiotics Cefepime IV Past Medical History Chronic tracheostomy History of left upper extremity DVT Recurrent aspiration pneumonia Hypertension Dyslipidemia History of pancreatitis/pseudocyst Diabetes mellitus Chronic narcotic use Chronic muscle relaxant use Hx MDRO infections - MRSA, ESBL+ Past Surgical History Tracheostomy, subsequent revision G/J tube placement and revision Allergies: Coded Allergies: haloperidol (Unverified Adverse Reaction, Severe, Seizures, 02/21/17) Objective . Vital Signs Date Time Temp Pulse Resp B/P (MAP) Pulse Ox O2 Delivery O2 Flow Rate FiO2 02/28/17 16:00 54 02/28/17 16:00 99.4 54 18 165/64 (97) 100 02/28/17 16:00 40 02/28/17 15:10 16 02/28/17 14:00 105 02/28/17 13:11 100 40 02/28/17 12:00 40 02/28/17 12:00 99.0 45 16 168/75 (106) 100 02/28/17 12:00 45 02/28/17 10:00 74 02/28/17 08:50 40 02/28/17 08:22 40 02/28/17 08:22 100 40 02/28/17 08:15 40 02/28/17 08:00 40 02/28/17 08:00 38 02/28/17 08:00 99.6 38 16 167/72 (103) 99 02/28/17 07:00 100 Mechanical Ventilator 40 02/28/17 06:00 64 02/28/17 04:51 100 40 02/28/17 04:00 50 02/28/17 04:00 52 02/28/17 04:00 99.9 52 16 181/87 (118) 93 02/28/17 02:00 42 02/28/17 01:20 100 40 02/28/17 00:00 38 02/28/17 00:00 50 02/28/17 00:00 99.7 38 16 152/71 (98) 100 02/27/17 22:00 68 02/27/17 20:46 100 45 02/27/17 20:00 99.6 76 16 149/68 (95) 100 02/27/17 20:00 50 02/27/17 20:00 100 02/27/17 19:00 100 Mechanical Ventilator 45 02/27/17 18:00 104 . Laboratory Tests Test 02/27/17 05:24 White Blood Count 5.7 TH/MM3 Red Blood Count 3.82 MIL/MM3 Hemoglobin 11.7 GM/DL Hematocrit 35.6 % Mean Corpuscular Volume 93.1 FL Mean Corpuscular Hemoglobin 30.6 PG Mean Corpuscular Hemoglobin Concent 32.9 % Red Cell Distribution Width 13.2 % Platelet Count 125 TH/MM3 Mean Platelet Volume 10.5 FL Neutrophils (%) (Auto) 72.1 % Lymphocytes (%) (Auto) 14.6 % Monocytes (%) (Auto) 11.1 % Eosinophils (%) (Auto) 1.9 % Basophils (%) (Auto) 0.3 % Neutrophils # (Auto) 4.1 TH/MM3 Lymphocytes # (Auto) 0.8 TH/MM3 Monocytes # (Auto) 0.6 TH/MM3 Eosinophils # (Auto) 0.1 TH/MM3 Basophils # (Auto) 0.0 TH/MM3 CBC Comment DIFF FINAL Differential Comment Laboratory Tests Test 02/27/17 05:24 02/28/17 04:28 Blood Urea Nitrogen 9 MG/DL 9 MG/DL Creatinine 1.89 MG/DL 1.56 MG/DL Random Glucose 114 MG/DL 94 MG/DL Total Protein 6.9 GM/DL Albumin 2.9 GM/DL Calcium Level 8.3 MG/DL 8.3 MG/DL Magnesium Level 2.3 MG/DL Alkaline Phosphatase 63 U/L Aspartate Amino Transf (AST/SGOT) 24 U/L Alanine Aminotransferase (ALT/SGPT) 44 U/L Total Bilirubin 0.5 MG/DL Sodium Level 144 MEQ/L 147 MEQ/L Potassium Level 3.4 MEQ/L 3.3 MEQ/L Chloride Level 111 MEQ/L 114 MEQ/L Carbon Dioxide Level 25.2 MEQ/L 25.4 MEQ/L Anion Gap 8 MEQ/L 8 MEQ/L Estimat Glomerular Filtration Rate 51 ML/MIN 64 ML/MIN Microbiology Date/Time Source Procedure Growth Status 02/26/17 17:13 Bronchial Washings Other Gram Stain - Final Complete 02/26/17 17:13 Bronchial Washings Other Bronchial Culture - Final RARE GROWTH NORMAL RESPIRATORY KENAN Complete Imaging Last Impressions Chest X-Ray 02/23/17 0600 Signed Impressions: Service Date/Time: Thursday, February 23, 2017 04:16 - CONCLUSION: 1. Marked rightward rotation of the patient. 2. Stable minimal bibasilar airspace disease , left greater than right. 3. No significant change from prior Beny Whalen MD Sinuses CT 02/21/17 0000 Signed Impressions: Service Date/Time: Tuesday, February 21, 2017 22:44 - CONCLUSION: 1. No evidence for acute sinusitis. Mucosal thickening right maxillary sinus. Stephan Rich MD Abdomen/Pelvis CT 02/21/17 0000 Signed Impressions: Service Date/Time: Tuesday, February 21, 2017 22:47 - CONCLUSION: 1. Basilar dependent lung consolidation with air bronchograms. Differential diagnosis includes pneumonia and aspiration. 2. Feeding gastrojejunostomy present. No bowel dilatation or evidence for obstruction. Mild constipation. Stephan Rich MD Physical Exam GENERAL: awake but no interaction, looks comfortable on the vent SKIN: Warm and dry. No generalized rash, no ecchymoses and no evidence of embolic lesions. HEAD: Atraumatic. Normocephalic. No temporal wasting, or tenderness. EYES: Sherwood conjunctiva. No petechia or hemorrhage. Pupils equal, round and reactive to light. No scleral icterus. No injection or drainage. EARS, NOSE AND THROAT: Nose without bleeding or purulent nasal discharge. A lot of oral secretions NECK: Tracheostomy site with bloody drainage. CARDIOVASCULAR: Regular rate and rhythm. No murmurs, rubs or gallops heard RESPIRATORY: Coarse BS bilaterally, occ rhonchi on R ABDOMEN: Soft, nondistended. Bowel sounds present and normoactive. No reaction to palpation. G/J tube site ok EXTREMITIES: No clubbing, cyanosis, or edema. No joint effusion. HIs UE are less spastic. Well perfused and warm. NEUROLOGICAL: Unresponsive PSYCHIATRIC: Unable to assess LINE: No evidence of infection : Ospina in place, urine looks clear Assessment & Plan Remarks IMPRESSION Sepsis on admission, due to PNA - sputum with Pseudomonas Viridans Strep bacteremia, source? Dental ? aspiration event related. - echo ok Aspiration PNA, has had N/V x 1 week Chronic vegetative state due to anoxic brain injury Hx MRSA and E coli ESBL (+) infections Renal insufficiency RECOMMENDATION Follow C/S and adjust Abx Continue Cefepime - should have coverage on Viridans Strep and PSAE Continue Tobramycin nebs. If continues to have cough and irritation may discontinue Tobramycin as it could be an irritant in airway. Follow Creatinine Monitor temps Monitor progress Weaning per CCM Will follow prn over the weekend. If any change in clinical condition or questions. to resume care on Friday03/03/17. Debra Myles MD Feb 28, 2017 17:16
[2017-02-28] MEDS: APIXABAN 5 MG TABLET G-TUBE SCH (20:43)
[2017-03-01] VITALS (18 sets, daily range): BP systolic 160–192; BP diastolic 69–84; PULSE 47–94; RESP 16–25; TEMP 98.5–99.7; O2SAT 97–100
[2017-03-01] MEDS: hydrALAZINE HCL 20 MG/ML VIAL IV PUSH PRN ×5 (00:37→19:49)
[2017-03-01] MEDS: HYOSCYAMINE 0.125 MG TAB PO SCH ×6 (00:38→21:56)
[2017-03-01] MEDS: CEFEPIME INJ 2,000 MG in SODIUM CHLORIDE 0.9% INJ 100 ML IV SCH ×2 (01:38→12:57)
[2017-03-01] MEDS: oxyCODONE/ACETAMINOPHEN 5 MG/325 MG TAB PO PRN ×2 (02:47→09:25)
[2017-03-01] MEDS: CHLORHEXIDINE GLUCONATE 2 % 1 PACK (2 CLOTHS) TOP SCH (04:00)
[2017-03-01] MEDS: hydrALAZINE HCL 50 MG TAB PO SCH ×3 (05:59→23:05)
[2017-03-01] MEDS: INSULIN ASPART SUPPLEMENTAL SCALE SQ SCH ×4 (05:59→18:00)
[2017-03-01] MEDS: METOCLOPRAMIDE HCL 10 MG/2 ML VIAL IV PUSH SCH ×3 (05:59→23:05)
[2017-03-01] MEDS: levETIRAcetam 500 MG/5 ML UDC G-TUBE SCH ×2 (08:55→21:56)
[2017-03-01] MEDS: APIXABAN 5 MG TABLET G-TUBE SCH ×2 (08:56→21:55)
[2017-03-01] MEDS: PANTOPRAZOLE SODIUM 40 MG VIAL IV SCH (08:56)
[2017-03-01] MEDS: SODIUM CHLORIDE 0.9% FLUSH 10 ML FLUSH IV FLUSH SCH ×2 (08:56→21:00)
[2017-03-01] MEDS: BACLOFEN 20 MG TAB G-TUBE SCH ×3 (08:56→17:06)
[2017-03-01] MEDS: LORATADINE 10 MG TAB G-TUBE SCH (08:56)
[2017-03-01] MEDS: ARTIFICIAL TEARS OPTH SOLN 15 ML BTL EACH EYE SCH ×3 (08:57→17:06)
[2017-03-01] MEDS: DOCUSATE SODIUM 50 MG/SENNA 8.6 MG TAB PO SCH ×2 (08:57→21:00)
[2017-03-01] MEDS: CHLORHEXIDINE 0.12% (ORAL KIT) 15 ML CUP MT SCH ×2 (08:58→19:51)
--- NOTE | 2017-03-01 09:01 | HHI.CCPN ---
Subjective Remarks/Hospital Course 31-year-old male. Resident of [facility] or rehabilitation. Past medical history includes anoxic brain injury 03/21 Temovate due to Haldol administration, recurrent aspiration pneumoniaMDRO positive MRSA positive ESBL positive Escherichia coli in past, hypertension, dyslipidemia, history of pseudocyst/necrotizing, diabetes mellitus presents with a one-week history of nausea/vomiting according to his mother at this nursing facility. He was also recently diagnosed with a fever started on amoxicillin Upon presentation to the ED, patient was noted of temperature 100.2. Leukocytosis 14.5 and elevated transaminases. Lactic acid 4.1. Received 3 L normal saline. Start empirically on piperacillin/tazobactam and vancomycin. Pancultured. Chest x-ray revealed no acute findings. CT abdomen/pelvis and amylase lipase all pending. Upon presentation the floor, patient was tachycardic in acute respiratory distress. Tracheostomy was exchanged for an 8.0-6.0 Shiley. Patient is currently sedated on the ventilator on Midazolam And fentanyl drips. 02/22: Asymptomatically Bradycardic overnight. CT abdomen/pelvis revealed air bronchograms lower lobes bilateral lungs otherwise unremarkable. Will initiate tube feeding today. Potassium will be replaced. 02/23: Became tachycardic overnight with movement. We'll attempt PSV trial today. Off all continuous sedation and analgesia. 02/24: Remains intubated, moves all extremities. tolerating CPAP 06/10. CXR mild basilar infiltrated 02/25: Remains off vasopressor. Tolerated TP 3-4 hours yesterday. Tmax 100.8. Neuro at baseline. G/J tube exchanged. 02/26: Tolerated TP up to 10 hour yesterday. Bloody trach secretions has almost resolved. Chest x-ray is unchanged. Fever trending down 02/27: Hypertensive. Vomited X 2, hold TFs, add reglan. Persistent minimal bloody secretions. 02/28: Failed SBT again today. Pseudomonas persists in sputum. Subjective: 03/01 Remains hypertensive >180 despite prns. Anisocoria with L pupil 7 mm and sluggishly reactive, has been documented previously by nursing 02/21 and forward. Placed on CPAP 04/10. Tube feeds at 25 mL/hr, being slowly advanced. Having BMs Objective Vital Signs Date Time Temp Pulse Resp B/P (MAP) Pulse Ox O2 Delivery O2 Flow Rate FiO2 03/01/17 06:00 55 03/01/17 04:49 100 40 03/01/17 04:00 99.6 16 160/69 (99) 02/28/17 19:00 Mechanical Ventilator 02/25/17 09:47 6.00 Intake and Output 03/01/17 03/01/17 03/01/17 07:59 15:59 23:59 Intake Total 1143 ml Output Total 1275 ml Balance -132 ml Result Diagram: 02/27/17 0524 02/28/17 0428 Other Results Microbiology Date/Time Source Procedure Growth Status 02/26/17 17:13 Bronchial Washings Other Gram Stain - Final Complete 02/26/17 17:13 Bronchial Washings Other Bronchial Culture - Final RARE GROWTH NORMAL RESPIRATORY KENAN Complete Imaging Last Impressions Chest X-Ray 02/22/17 0000 Signed Impressions: Service Date/Time: Wednesday, February 22, 2017 03:56 - CONCLUSION: 1. Mild basilar airspace disease. No significant effusion. No pneumothorax. Stephan Rich MD Sinuses CT 02/21/17 0000 Signed Impressions: Service Date/Time: Tuesday, February 21, 2017 22:44 - CONCLUSION: 1. No evidence for acute sinusitis. Mucosal thickening right maxillary sinus. Stephan Rich MD Abdomen/Pelvis CT 02/21/17 0000 Signed Impressions: Service Date/Time: Tuesday, February 21, 2017 22:47 - CONCLUSION: 1. Basilar dependent lung consolidation with air bronchograms. Differential diagnosis includes pneumonia and aspiration. 2. Feeding gastrojejunostomy present. No bowel dilatation or evidence for obstruction. Mild constipation. Stephan Rich MD Objective Remarks GENERAL: 31-year-old -Citizen Of [place] male, critically ill-appearing SKIN: Mild diaphoresis No rash. HEAD: Atraumatic. Normocephalic. EYES: Right pupil 5 mm and sluggishly reactive, L pupil 7mm questionably reactive. . No scleral icterus. No injection or drainage. ENT: No nasal bleeding or discharge. Mucous membranes pink and moist. NECK: Trachea midline. No JVD. #[address] CARDIOVASCULAR: rrr, rate in 60s. S1, S2 no S4. No murmurs appreciated RESPIRATORY: Coarse breath sounds appreciated throughout the lower lobes bilaterally. GASTROINTESTINAL: Abdomen soft, non-tender, nondistended. GJ tube in left upper quadrant is clean dry and intact : condom cath in place MUSCULOSKELETAL: Contracted. Moves all extremities without difficulty and peripheral edema. NEUROLOGICAL: Eyes are open spontaneously, no tracking, no response to visual threat. Bilateral extremities are in flexion, contracted. Bilateral lower extremities with increased tone, foot drop bilaterally. A/P Assessment and Plan Neuro/Psych: Anisocoria - appears is chronic. History of anoxic brain injury Chronic muscle relaxant use Seizure disorder NOS Continue levetiracetam 1000 mg by PEG tube twice a day for seizure disorder, Seizure precautions As needed lorazepam 0.5-1 mg every 2 hours by PEG tube for agitation Baclofen 20 3 times a day Acetaminophen for fever/pain Previously on oxycodone/acetaminophen 5/325 one tablet every 4 hours when necessary pain. Resumed 02/[address] brain Sinus scan from 02/21 with atrophy but no acute abnormality. CV: Sinus bradycardia History of hypertension History dyslipidemia Lactic acidosis KVO IVF as per below Hydralazine 50 every 8 hours Hydralazine 20 mg IV every 3 hours when necessary systolic blood pressure greater than 160 Add Norvasc 5 mg per tube daily Chronic medication of metoprolol 25 twice a day is on hold due to bradycardia Resp: Acute respiratory failure secondary to aspiration pneumonia Status post tracheostomy exchange TP up to 10 hours 02/25. Subsequently has not tolerated CPAP. Placing on CPAP 04/10 now. Ventilator bundle. Albuterol/ipratropium every 6 hours aerosols with albuterol nebulizers every 2 hours Wean FiO2 as clinically indicated , on 40%. Chest x-ray 02/22 revealed lower lobe infiltrates bilaterally. CXR 02/25 essentially clear #8 Shiley percutaneous tracheostomy downsized #6 Shiley on 02/21 due to respiratory distress. (Per Dr. Mantilla, unable to pass new 8.0 Shiley and 6.0 was placed) GI: Nausea/vomiting Elevated transaminases History pancreatitis/pseudocyst Chronic protein energy malnutrition Follow-up on CT abdomen/pelvis revealed air bronchograms bilateral. Gastric tube in place. No signs of ileus or obstruction. Tube feeding with vital 1.5 goal 50 cc an hour per nutrition recommendations from 02/28 IR exchanged G/J Tube 02/25 Pantoprazole for GI prophylaxis. Docusate sodium/senna twice a day for bowel regimen. Having bowel movements. FEN/RENAL: Hypernatremia Hypophosphatemia (resolved) Hypokalemia Acute kidney injury. Nonoliguric. Check BMP, FENA today. Discontinue 0.9 NaCl. Start free water flushes 200 every 6. Replace electrolytes per ICU electrolyte replacement protocol. Ospina catheter is in place for accurate I's and O's in a critically ill patient- remove and place Condom catheter Urine eosinophils -02/27 Renal ultrasound 02/26 - R kidney enlarged. No hydronephrosis. Endo: Diabetes mellitus Sliding-scale insulin with NovoLog with Accu-Cheks to maintain euglycemia/low regimen every 6 hours Heme: Normocytic anemia Thrombocytopenia Chronic Apixaban Follow-up coags. Follow up CBC in AM. Monitor trends Apixaban 5 mg bid per tube. ID: Pseudomonas pneumonia Strep viridans bacteremia History ESBL positive Escherichia coli MDRO positive History MRSA Currently on Cefepime 02/27 #3 , tobramycin nebs 02/25-02/[address] Reynolds Blood cultures 2 02/21 strep viridans, sputum culture Pseudomonas. Repeat blood cultures 02/23 neg to date. Midline catheter placed at senior care ~1.5 weeks prior to admission per mother. H/o dvt LUE in past (~ 1 year ago). Will u/ s extremities to eval for DVT prior to possible new u/s guided line. UA, Legionella pneumococcal urinary antigen, influenza all negative/no growth 2-D echocardiogram ordered rule out endocarditis-neg for veg MSK: Muscle contractures PT evaluate and treat Access - Utilize peripheral IV. Prophylaxis - GI - pantoprazole 40 g IV daily for stress ulcer prophylaxis. - DVT - SCD/Apixaban 5 mg twice a day ACCESS: Patient with severe anoxic injury whose overall long-term prognosis is poor. Now with carbapenem resistant Pseudomonas pneumonia. Mother updated by telephone 03/01 and multiple questions answered. Level 3 FULL CODE. Yuliya Rivers MD Mar 01, 2017 09:01
[2017-03-01] MEDS: RESP: TOBRAMYCIN SULFATE 80 MG/2 ML NEB NEB SCH ×2 (09:07→22:07)
[2017-03-01] MEDS: RESP: ALBUTEROL 2.5 MG/IPRATROPIUM 0.5 MG NEB (SCH) NEB ×3 (10:00→21:32)
[2017-03-01] MEDS ORDERED: amLODIPine BESYLATE 5 MG TAB PEG SCH (10:00)
[2017-03-01 10:41] LABS: HEMATOCRIT 39.8 % (39.0-51.0); MEAN CELL VOLUME 92.8 FL (80.0-100.0); MEAN CORPUSCULAR HEMOGLOBIN 31.4 PG (27.0-34.0); MEAN CORPUSCULAR HGB CONC 33.8 % (32.0-36.0); PLATELET COUNT 190 TH/MM3 (150-450); RED BLOOD COUNT 4.29 MIL/MM3 (4.50-5.90); RED CELL DISTRIBUTION WIDTH 13.6 % (11.6-17.2); WHITE BLOOD COUNT 5.2 TH/MM3 (4.0-11.0)
[2017-03-01] MEDS ORDERED: LIDOCAINE HCL 2% 100 MG/5 ML SYRINGE ONE (10:55)
[2017-03-01] MEDS ORDERED: EPINEPHrine HCL (1:10,000) 1 MG/10 ML SYRINGE ONE (10:55)
[2017-03-01] MEDS ORDERED: ATROPINE SULFATE 1 MG/10 ML SYRINGE ONE (10:55)
[2017-03-01 11:09] LABS: BICARBONATE 21.4 MEQ/L (21.0-32.0)
[2017-03-01 11:11] LABS: POTASSIUM 5.4 MEQ/L (3.5-5.1)
[2017-03-01 11:15] LABS: HEMO FLAGS AUTO DIFF
[2017-03-01 11:17] LABS: EOSINOPHILS 1 % (0-4); METAMYELOCYTES 1 % (0-1); NEUTROPHIL # MANUAL DIFF 3.4 TH/MM3 (1.8-7.7); POLYS (SEG NEUTROPHILS) 64 % (16-70); WBC DIFF SAMPLE 100
[2017-03-01 11:18] LABS: PLATELET ESTIMATE SMEAR NORMAL (NORMAL); PLATELET MORPHOLOGY NORMAL (NORMAL); SCAN/DIFF FINAL DIFF MANUAL
--- NOTE | 2017-03-01 11:53 | RADRPT ---
EXAM DATE/TIME: 03/01/2017 11:29 [facility] COMPARISON: No previous studies available for comparison. INDICATIONS : Altered mental status. RADIATION DOSE: 45.75 CTDIvol (mGy) MEDICAL HISTORY : Non-responsive. SURGICAL HISTORY : Non-responsive. ENCOUNTER: Initial ACUITY: 1 day PAIN SCALE: Non-responsive LOCATION: Bilateral head TECHNIQUE: Multiple contiguous axial images were obtained of the head. Using automated exposure control and adj ustment of the mA and/or kV according to patient size, radiation dose was kept as low as reasonably a chievable to obtain optimal diagnostic quality images. DICOM format image data is available electro nically for review and comparison. FINDINGS: Diffusely low-attenuation of the bilateral cerebral hemispheres with markedly decreased mckeon/white ma tter differentiation and would be compatible with clinical history of anoxic injury. Similar but slig htly less severe findings are demonstrated of the cerebellum. I don't commence noisy tonsillar hernia tion. There is moderate to severe ventricular dilatation, etiology uncertain. I don't see a mass. No bleed. No midline shift. CONCLUSION: Noncontrast CT findings are typical of a severe, diffuse anoxic cerebral event, probably subacute. N o bleed. No midline shift. Santo Fisher MD on March 01, 2017 at 11:46 Board Certified Radiologist. This report was verified electronically.
[2017-03-01] MEDS: FREE WATER G-TUBE SCH ×2 (12:51→17:06)
[2017-03-01] MEDS ORDERED: FUROSEMIDE 40 MG/4 ML VIAL IV PUSH ONE (13:00)
[2017-03-01] MEDS ORDERED: amLODIPine BESYLATE 5 MG TAB PO ONE (16:15)
--- NOTE | 2017-03-01 22:09 | RADRPT ---
EXAM DATE/TIME: 03/01/2017 20:17 [facility] COMPARISON: No previous studies available for comparison. INDICATIONS : Bilateral arm edema. MEDICAL HISTORY : Seizures. Anoxic brain damage. Hypertension. Anxiety. MRSA. ESBL. SURGICAL HISTORY : Tracheostomy status. Gastrostomy status. G/J tube placed. ENCOUNTER: Initial ACUITY: 1 day PAIN SCORE: Non-responsive LOCATION: Bilateral arms. FINDINGS: The examination was significantly limited by the patient's condition and inability to cooperate fully . There is thrombosis of the cephalic veins bilaterally. The right basilic vein demonstrates thromb osis. There is only partial compression of the right brachial vein with nonocclusive thrombus within this vein. There is partial compression of the left basilic vein also suggestive of nonocclusive th rombus. CONCLUSION: Occlusive thrombus within the cephalic veins bilaterally and the right basilic vein as well as nonocc lusive thrombus within the right brachial and left basilic veins. Peter Nolan MD on March 01, 2017 at 21:54 Board Certified Radiologist. This report was verified electronically.
[2017-03-02] VITALS (17 sets, daily range): BP systolic 144–177; BP diastolic 61–85; PULSE 46–81; RESP 16–25; TEMP 98.8–99.8; O2SAT 98–100
[2017-03-02] MEDS: FREE WATER G-TUBE SCH ×4 (00:36→17:12)
[2017-03-02] MEDS: HYOSCYAMINE 0.125 MG TAB PO SCH ×6 (00:36→20:10)
[2017-03-02] MEDS: CEFEPIME INJ 2,000 MG in SODIUM CHLORIDE 0.9% INJ 100 ML IV SCH ×2 (02:46→13:16)
[2017-03-02] MEDS: CHLORHEXIDINE GLUCONATE 2 % 1 PACK (2 CLOTHS) TOP SCH ×2 (04:00→20:13)
[2017-03-02] MEDS: RESP: ALBUTEROL 2.5 MG/IPRATROPIUM 0.5 MG NEB (SCH) NEB ×4 (04:52→20:13)
[2017-03-02] MEDS: hydrALAZINE HCL 20 MG/ML VIAL IV PUSH PRN ×2 (05:40→11:07)
[2017-03-02] MEDS: METOCLOPRAMIDE HCL 10 MG/2 ML VIAL IV PUSH SCH ×3 (05:41→20:10)
[2017-03-02] MEDS: hydrALAZINE HCL 50 MG TAB PO SCH ×3 (05:42→20:10)
[2017-03-02] MEDS: INSULIN ASPART SUPPLEMENTAL SCALE SQ SCH ×4 (06:00→17:12)
[2017-03-02 06:16] LABS: WHITE BLOOD COUNT 4.3 TH/MM3 (4.0-11.0)
[2017-03-02 06:17] LABS: AUTOMATED NEUTROPHIL # 2.4 TH/MM3 (1.8-7.7); BASOPHIL % 0.6 % (0.0-2.0); EOSINOPHIL # 0.2 TH/MM3 (0-0.4); EOSINOPHIL % 3.9 % (0.0-4.0); HEMATOCRIT 38.4 % (39.0-51.0); HEMO FLAGS DIFF FINAL; LYMPH % 27.3 % (9.0-44.0); LYMPHOCYTE # 1.2 TH/MM3 (1.0-4.8); MEAN CELL VOLUME 92.9 FL (80.0-100.0); MEAN CORPUSCULAR HEMOGLOBIN 30.8 PG (27.0-34.0); MEAN CORPUSCULAR HGB CONC 33.1 % (32.0-36.0); MONO % 13.2 % (0.0-8.0); PLATELET COUNT 158 TH/MM3 (150-450); RED BLOOD COUNT 4.14 MIL/MM3 (4.50-5.90); RED CELL DISTRIBUTION WIDTH 13.6 % (11.6-17.2)
[2017-03-02 07:11] LABS: BICARBONATE 22.7 MEQ/L (21.0-32.0); POTASSIUM 3.1 MEQ/L (3.5-5.1)
[2017-03-02] MEDS: CHLORHEXIDINE 0.12% (ORAL KIT) 15 ML CUP MT SCH ×2 (07:55→20:00)
[2017-03-02] MEDS: SODIUM CHLORIDE 0.9% FLUSH 10 ML FLUSH IV FLUSH SCH ×2 (07:55→20:11)
[2017-03-02] MEDS: ARTIFICIAL TEARS OPTH SOLN 15 ML BTL EACH EYE SCH ×3 (07:55→17:12)
[2017-03-02] MEDS: RESP: TOBRAMYCIN SULFATE 80 MG/2 ML NEB NEB SCH ×2 (08:00→20:57)
[2017-03-02] MEDS: levETIRAcetam 500 MG/5 ML UDC G-TUBE SCH ×2 (08:14→20:09)
[2017-03-02] MEDS: PANTOPRAZOLE SODIUM 40 MG VIAL IV SCH (08:15)
[2017-03-02] MEDS: APIXABAN 5 MG TABLET G-TUBE SCH ×2 (08:15→20:11)
[2017-03-02] MEDS: DOCUSATE SODIUM 50 MG/SENNA 8.6 MG TAB PO SCH ×2 (08:15→20:12)
[2017-03-02] MEDS: LORATADINE 10 MG TAB G-TUBE SCH (08:16)
[2017-03-02] MEDS: BACLOFEN 20 MG TAB G-TUBE SCH ×3 (08:16→17:12)
--- NOTE | 2017-03-02 14:53 | HHI.IDPN ---
Subjective Subjective Remarks Delayed entry. ID [id number] for Rodolfo Patient is a 31-year-old male, who is in chronic vegetative state, due to anoxic brain injury, as a chronic trach, with sides in long-term facility at [facility], brought into the hospital for further evaluation of fever. Patient apparently has been having problem with nausea and vomiting for about a week, and he also started having problem with increased tracheal secretions. More recently he is had a fever, and patient was brought into the hospital for further evaluation and treatment. Patient has had previous hospitalization for pneumonia. On presentation, he was found to have leukocytosis. His temperature was up to 100.2, lactic acid elevated at 4.1. His chest x-ray was negative. CT of the abdomen and pelvis though showed evidence of basilar consolidation with air bronchograms suggestive of pneumonia. He has had previous history of infection with MRSA, as well as Escherichia coli ESBL positive. Patient currently is on the vent, and has no meaningful interaction. He is on the vent, and looks comfortable. His WBC is down to normal. His blood pressure is hemodynamically stable. Infectious disease consultation has been requested to assist in antibiotic management of this patient with aspiration pneumonia, and known history of MDRO infections. Notes reviewed Temps occ 99+ BP ok, not on pressors BC with Viridans Strep I to PCN and Amp Repeat BC negative Sputum with Pseudomonas, R to Primaxin, and Levaquin UC negative CXR with stable basilar infiltrates Mom reports midline placed 1.5 weeks back in SNF for antibiotics for PNA. Antibiotics Cefepime IV Past Medical History Chronic tracheostomy History of left upper extremity DVT Recurrent aspiration pneumonia Hypertension Dyslipidemia History of pancreatitis/pseudocyst Diabetes mellitus Chronic narcotic use Chronic muscle relaxant use Hx MDRO infections - MRSA, ESBL+ Past Surgical History Tracheostomy, subsequent revision G/J tube placement and revision Allergies: Coded Allergies: haloperidol (Unverified Adverse Reaction, Severe, Seizures, 02/21/17) Objective . Vital Signs Date Time Temp Pulse Resp B/P (MAP) Pulse Ox O2 Delivery O2 Flow Rate FiO2 03/02/17 14:00 67 03/02/17 12:24 100 40 03/02/17 12:00 40 03/02/17 12:00 55 03/02/17 12:00 99.0 81 25 151/61 (91) 100 03/02/17 10:00 52 03/02/17 09:04 40 03/02/17 09:01 40 03/02/17 09:01 100 40 03/02/17 08:00 40 03/02/17 08:00 99 Mechanical Ventilator 40 03/02/17 08:00 63 03/02/17 08:00 99.1 72 16 157/85 (109) 100 03/02/17 06:00 56 03/02/17 04:00 72 03/02/17 04:00 98.8 72 16 177/79 (111) 100 03/02/17 04:00 40 03/02/17 02:00 46 03/02/17 01:18 98 40 03/02/17 00:00 98.9 46 16 149/66 (93) 99 03/02/17 00:00 40 03/02/17 00:00 46 03/01/17 22:00 78 03/01/17 21:34 98 40 03/01/17 20:00 40 03/01/17 20:00 66 03/01/17 20:00 98.8 56 18 182/79 (113) 100 03/01/17 19:00 99 Mechanical Ventilator 40 03/01/17 18:00 92 03/01/17 17:06 20 03/01/17 16:04 97 40 03/01/17 16:00 98.6 61 20 162/74 (103) 99 03/01/17 16:00 81 03/01/17 16:00 40 . Laboratory Tests Test 03/01/17 09:54 03/02/17 05:44 White Blood Count 5.2 TH/MM3 4.3 TH/MM3 Red Blood Count 4.29 MIL/MM3 4.14 MIL/MM3 Hemoglobin 13.4 GM/DL 12.7 GM/DL Hematocrit 39.8 % 38.4 % Mean Corpuscular Volume 92.8 FL 92.9 FL Mean Corpuscular Hemoglobin 31.4 PG 30.8 PG Mean Corpuscular Hemoglobin Concent 33.8 % 33.1 % Red Cell Distribution Width 13.6 % 13.6 % Platelet Count 190 TH/MM3 158 TH/MM3 Mean Platelet Volume 11.1 FL 10.9 FL CBC Comment AUTO DIFF DIFF FINAL Differential Total Cells Counted 100 Neutrophils % (Manual) 64 % Lymphocytes % 26 % Monocytes % 8 % Eosinophils % 1 % Neutrophils # (Manual) 3.4 TH/MM3 Metamyelocytes 1 % Differential Comment FINAL DIFF MANUAL Platelet Estimate NORMAL Platelet Morphology Comment NORMAL Neutrophils (%) (Auto) 55.0 % Lymphocytes (%) (Auto) 27.3 % Monocytes (%) (Auto) 13.2 % Eosinophils (%) (Auto) 3.9 % Basophils (%) (Auto) 0.6 % Neutrophils # (Auto) 2.4 TH/MM3 Lymphocytes # (Auto) 1.2 TH/MM3 Monocytes # (Auto) 0.6 TH/MM3 Eosinophils # (Auto) 0.2 TH/MM3 Basophils # (Auto) 0.0 TH/MM3 Laboratory Tests Test 03/01/17 10:36 03/02/17 05:44 Blood Urea Nitrogen 9 MG/DL 11 MG/DL Creatinine 1.38 MG/DL 1.23 MG/DL Random Glucose 86 MG/DL 108 MG/DL Calcium Level 8.7 MG/DL 8.6 MG/DL Sodium Level 148 MEQ/L 147 MEQ/L Potassium Level 5.4 MEQ/L 3.1 MEQ/L Chloride Level 115 MEQ/L 113 MEQ/L Carbon Dioxide Level 21.4 MEQ/L 22.7 MEQ/L Anion Gap 12 MEQ/L 11 MEQ/L Estimat Glomerular Filtration Rate 73 ML/MIN 84 ML/MIN Imaging Last Impressions Chest X-Ray 02/23/17 0600 Signed Impressions: Service Date/Time: Thursday, February 23, 2017 04:16 - CONCLUSION: 1. Marked rightward rotation of the patient. 2. Stable minimal bibasilar airspace disease , left greater than right. 3. No significant change from prior Beny Whalen MD Sinuses CT 02/21/17 0000 Signed Impressions: Service Date/Time: Tuesday, February 21, 2017 22:44 - CONCLUSION: 1. No evidence for acute sinusitis. Mucosal thickening right maxillary sinus. Stephan Rich MD Abdomen/Pelvis CT 02/21/17 0000 Signed Impressions: Service Date/Time: Tuesday, February 21, 2017 22:47 - CONCLUSION: 1. Basilar dependent lung consolidation with air bronchograms. Differential diagnosis includes pneumonia and aspiration. 2. Feeding gastrojejunostomy present. No bowel dilatation or evidence for obstruction. Mild constipation. Stephan Rich MD Physical Exam GENERAL: awake but no interaction, looks comfortable on the vent SKIN: Warm and dry. No generalized rash, no ecchymoses and no evidence of embolic lesions. HEAD: Atraumatic. Normocephalic. No temporal wasting, or tenderness. EYES: Enlow conjunctiva. No petechia or hemorrhage. Pupils equal, round and reactive to light. No scleral icterus. No injection or drainage. EARS, NOSE AND THROAT: Nose without bleeding or purulent nasal discharge. A lot of oral secretions NECK: Tracheostomy site with bloody drainage. CARDIOVASCULAR: Regular rate and rhythm. No murmurs, rubs or gallops heard RESPIRATORY: Coarse BS bilaterally, occ rhonchi on R ABDOMEN: Soft, nondistended. Bowel sounds present and normoactive. No reaction to palpation. G/J tube site ok EXTREMITIES: No clubbing, cyanosis, or edema. No joint effusion. HIs UE are less spastic. Well perfused and warm. NEUROLOGICAL: Unresponsive PSYCHIATRIC: Unable to assess LINE: No evidence of infection : Ospina in place, urine looks clear Assessment & Plan Remarks IMPRESSION Sepsis on admission, due to PNA - sputum with Pseudomonas Viridans Strep bacteremia, source ? midline present on admission Line related BSI (not a central line, and was present on admission) - echo ok Aspiration PNA, has had N/V x 1 week Chronic vegetative state due to anoxic brain injury Hx MRSA and E coli ESBL (+) infections Renal insufficiency RECOMMENDATION Follow C/S and adjust Abx Continue Cefepime - should have coverage on Viridans Strep and PSAE. Continue Tobramycin nebs. If continues to have cough and irritation may discontinue Tobramycin as it could be an irritant in airway. Discontinue Central line once Vasc team able to obtain a good PIV. Has DVTs bilateral UEs. Follow Creatinine Monitor temps Monitor progress Weaning per CCM to resume care on Friday03/03/17. Debra Myles MD Mar 02, 2017 14:53
--- NOTE | 2017-03-02 17:28 | HHI.CCPN ---
Subjective Remarks/Hospital Course 31-year-old male. Resident of [facility] or rehabilitation. Past medical history includes anoxic brain injury 03/21 Temovate due to Haldol administration, recurrent aspiration pneumoniaMDRO positive MRSA positive ESBL positive Escherichia coli in past, hypertension, dyslipidemia, history of pseudocyst/necrotizing, diabetes mellitus presents with a one-week history of nausea/vomiting according to his mother at this nursing facility. He was also recently diagnosed with a fever started on amoxicillin Upon presentation to the ED, patient was noted of temperature 100.2. Leukocytosis 14.5 and elevated transaminases. Lactic acid 4.1. Received 3 L normal saline. Start empirically on piperacillin/tazobactam and vancomycin. Pancultured. Chest x-ray revealed no acute findings. CT abdomen/pelvis and amylase lipase all pending. Upon presentation the floor, patient was tachycardic in acute respiratory distress. Tracheostomy was exchanged for an 8.0-6.0 Shiley. Patient is currently sedated on the ventilator on Midazolam And fentanyl drips. 02/22: Asymptomatically Bradycardic overnight. CT abdomen/pelvis revealed air bronchograms lower lobes bilateral lungs otherwise unremarkable. Will initiate tube feeding today. Potassium will be replaced. 02/23: Became tachycardic overnight with movement. We'll attempt PSV trial today. Off all continuous sedation and analgesia. 02/24: Remains intubated, moves all extremities. tolerating CPAP 06/10. CXR mild basilar infiltrated 02/25: Remains off vasopressor. Tolerated TP 3-4 hours yesterday. Tmax 100.8. Neuro at baseline. G/J tube exchanged. 02/26: Tolerated TP up to 10 hour yesterday. Bloody trach secretions has almost resolved. Chest x-ray is unchanged. Fever trending down 02/27: Hypertensive. Vomited X 2, hold TFs, add reglan. Persistent minimal bloody secretions. 02/28: Failed SBT again today. Pseudomonas persists in sputum. 03/01 Remains hypertensive >180 despite prns. Anisocoria with L pupil 7 mm and sluggishly reactive, has been documented previously by nursing 02/21 and forward. Placed on CPAP 04/10. Tube feeds at 25 mL/hr, being slowly advanced. Having BMs Subjective: 03/02 U/s from BUE with occlusive thrombus bilateral cephalic's, right basilic, nonocclusive thrombus of right brachial and left basilic. Will discontinue Midline from outside facility. U/s guided PIV for completion of abx course. Was net even yesterday with diuretics and creatinine now downtrended to 1.23 Tolerating CPAP Objective Vital Signs Date Time Temp Pulse Resp B/P (MAP) Pulse Ox O2 Delivery O2 Flow Rate FiO2 03/02/17 16:00 66 03/02/17 16:00 40 03/02/17 16:00 99.0 17 144/63 (90) 100 03/02/17 08:00 Mechanical Ventilator Intake and Output 03/02/17 03/02/17 03/03/17 08:00 16:00 00:00 Intake Total 1825 ml 100 ml Output Total 1500 ml Balance 325 ml 100 ml Result Diagram: 03/02/17 0544 03/02/17 0544 Imaging Last Impressions Chest X-Ray 02/22/17 0000 Signed Impressions: Service Date/Time: Wednesday, February 22, 2017 03:56 - CONCLUSION: 1. Mild basilar airspace disease. No significant effusion. No pneumothorax. Stephan Rich MD Sinuses CT 02/21/17 0000 Signed Impressions: Service Date/Time: Tuesday, February 21, 2017 22:44 - CONCLUSION: 1. No evidence for acute sinusitis. Mucosal thickening right maxillary sinus. Stephan Rich MD Abdomen/Pelvis CT 02/21/17 0000 Signed Impressions: Service Date/Time: Tuesday, February 21, 2017 22:47 - CONCLUSION: 1. Basilar dependent lung consolidation with air bronchograms. Differential diagnosis includes pneumonia and aspiration. 2. Feeding gastrojejunostomy present. No bowel dilatation or evidence for obstruction. Mild constipation. Stephan Rich MD Objective Remarks GENERAL: 31-year-old -[place] male, critically ill-appearing SKIN: Mild diaphoresis No rash. HEAD: Atraumatic. Normocephalic. EYES: Right pupil 5 mm and sluggishly reactive, L pupil 7mm questionably reactive. . No scleral icterus. No injection or drainage. ENT: No nasal bleeding or discharge. Mucous membranes pink and moist. NECK: Trachea midline. No JVD. #[address] CARDIOVASCULAR: rrr, rate in 60s. S1, S2 no S4. No murmurs appreciated RESPIRATORY: Coarse breath sounds appreciated throughout the lower lobes bilaterally. GASTROINTESTINAL: Abdomen soft, non-tender, nondistended. GJ tube in left upper quadrant is clean dry and intact : condom cath in place MUSCULOSKELETAL: Contracted. NEUROLOGICAL: Eyes are open spontaneously, no tracking, no response to visual threat. Chewing movement with mouth intermittently. Bilateral extremities are in flexion, contracted. Bilateral lower extremities with rigidity, foot drop bilaterally. A/P Assessment and Plan Neuro/Psych: Anisocoria - appears is chronic. History of anoxic brain injury Chronic muscle relaxant use Seizure disorder NOS Continue levetiracetam 1000 mg by PEG tube twice a day for seizure disorder, Seizure precautions As needed lorazepam 0.5-1 mg every 2 hours by PEG tube for agitation Baclofen 20 3 times a day Acetaminophen for fever/pain Previously on oxycodone/acetaminophen 5/325 one tablet every 4 hours when necessary pain. Resumed 02/22 CT brain - c/w sever anoxic injury with no acute findings. Sinus scan from 02/21 with atrophy but no acute abnormality. CV: Sinus bradycardia History of hypertension History dyslipidemia Lactic acidosis KVO IVF as per below Hydralazine 50 every 8 hours. Norvasc 10 mg daily Hydralazine 20 mg IV every 3 hours when necessary systolic blood pressure greater than 160 Chronic medication of metoprolol 25 twice a day is on hold due to bradycardia Resp: Acute respiratory failure secondary to aspiration pneumonia Status post tracheostomy exchange TP up to 10 hours 02/25. Subsequently had not tolerated CPAP but 03/02 seems to be improving. Continue daily CPAP and transition to Tpiece trials. Ventilator bundle. Albuterol/ipratropium every 6 hours aerosols with albuterol nebulizers every 2 hours Chest x-ray 02/22 revealed lower lobe infiltrates bilaterally. CXR 02/25 essentially clear #8 Shiley percutaneous tracheostomy downsized #6 Shiley on 02/21 due to respiratory distress. (Per Dr. Mantilla, unable to pass new 8.0 Shiley and 6.0 was placed) GI: Nausea/vomiting Elevated transaminases History pancreatitis/pseudocyst Chronic protein energy malnutrition Follow-up on CT abdomen/pelvis revealed air bronchograms bilateral. Gastric tube in place. No signs of ileus or obstruction. Tube feeding with vital 1.5 goal 50 cc an hour per nutrition recommendations from 02/28 IR exchanged G/J Tube 02/25 Pantoprazole for GI prophylaxis. Docusate sodium/senna twice a day for bowel regimen. Having bowel movements. FEN/RENAL: Hypernatremia Hypophosphatemia (resolved) Hypokalemia Pseudohyperkalemia 03/01 (hemolysis) Acute kidney injury. Nonoliguric. FeNa 3% c/w ATN. Urine eosinophils negative 02/27 Creatinine downtrending. Lasix 40 mgIV q8 hours, KCl 25 [id number] x3 doses Discontinued 0.9 NaC on 03/01. On free water flushes 200 every 6. Replace electrolytes per ICU electrolyte replacement protocol. Ospina catheter is in place for accurate I's and O's in a critically ill patient- remove and place Condom catheter Renal ultrasound 02/26 - R kidney enlarged. No hydronephrosis. Endo: Diabetes mellitus Sliding-scale insulin with NovoLog with Accu-Cheks to maintain euglycemia/low regimen every 6 hours Heme: Normocytic anemia Thrombocytopenia Chronic Apixaban Multiple superficial and deep upper extremity thromboses occlusive thrombus bilateral cephalic's, right basilic, nonocclusive thrombus of right brachial and left basilic on u/s 03/01 Apixaban 5 mg bid per tube. ID: Pseudomonas pneumonia Strep viridans bacteremia - Present on admission, midline catheter associated. History ESBL positive Escherichia coli MDRO positive History MRSA Currently on Cefepime 02/27 #4 , tobramycin nebs 02/25-02/[address] Reynolds Blood cultures 2 02/21 strep viridans, sputum culture Pseudomonas. Repeat blood cultures 02/23 neg to date. Midline catheter placed at skilled nursing ~1.5 weeks prior to admission per mother. H/o dvt LUE in past (~ 1 year ago) so performed u/s extremities to eval for DVT prior to possible new u/s guided line. Now ill place PIV and d/c midline catheter 03/02. UA, Legionella pneumococcal urinary antigen, influenza all negative/no growth 2-D echocardiogram ordered rule out endocarditis-neg for veg MSK: Muscle contractures PT evaluate and treat Access - Utilize peripheral IV. Prophylaxis - GI - pantoprazole 40 mg IV daily for stress ulcer prophylaxis. - DVT - SCD/Apixaban 5 mg twice a day ACCESS: Patient with severe anoxic injury whose overall long-term prognosis is poor. Now with carbapenem resistant Pseudomonas pneumonia. Mother updated by telephone 03/01 and 03/02 and multiple questions answered. She confirms she desires FULL CODE. Discussed with Dr. Lilia Myles Level 3 FULL CODE. Yuliya Rivers MD Mar 02, 2017 17:28
[2017-03-02] MEDS: FUROSEMIDE 40 MG/4 ML VIAL IV PUSH SCH (18:14)
[2017-03-02] MEDS: POTASSIUM CHLORIDE 25 MEQ EFFERVESCENT TAB NG SCH (18:15)
[2017-03-02] MEDS: oxyCODONE/ACETAMINOPHEN 5 MG/325 MG TAB PO PRN (20:11)
[2017-03-03] VITALS (17 sets, daily range): BP systolic 131–188; BP diastolic 60–91; PULSE 52–125; RESP 16–26; TEMP 98.3–100; O2SAT 100
[2017-03-03] MEDS: HYOSCYAMINE 0.125 MG TAB PO SCH ×6 (02:35→21:57)
[2017-03-03] MEDS: CEFEPIME INJ 2,000 MG in SODIUM CHLORIDE 0.9% INJ 100 ML IV SCH ×2 (02:36→13:22)
[2017-03-03] MEDS: FUROSEMIDE 40 MG/4 ML VIAL IV PUSH SCH ×3 (02:36→17:23)
[2017-03-03] MEDS: POTASSIUM CHLORIDE 25 MEQ EFFERVESCENT TAB NG SCH ×2 (02:36→09:19)
[2017-03-03] MEDS: RESP: ALBUTEROL 2.5 MG/IPRATROPIUM 0.5 MG NEB (SCH) NEB ×4 (04:15→21:03)
[2017-03-03] MEDS: hydrALAZINE HCL 50 MG TAB PO SCH ×3 (04:52→21:57)
[2017-03-03] MEDS: METOCLOPRAMIDE HCL 10 MG/2 ML VIAL IV PUSH SCH ×3 (04:52→21:57)
[2017-03-03 05:18] LABS: BICARBONATE 24.9 MEQ/L (21.0-32.0); POTASSIUM 3.3 MEQ/L (3.5-5.1)
[2017-03-03 05:53] LABS: AUTOMATED NEUTROPHIL # 3.2 TH/MM3 (1.8-7.7); BASOPHIL % 0.5 % (0.0-2.0); EOSINOPHIL # 0.2 TH/MM3 (0-0.4); EOSINOPHIL % 3.2 % (0.0-4.0); HEMATOCRIT 41.6 % (39.0-51.0); HEMO FLAGS DIFF FINAL; LYMPH % 23.4 % (9.0-44.0); LYMPHOCYTE # 1.2 TH/MM3 (1.0-4.8); MEAN CELL VOLUME 94.5 FL (80.0-100.0); MEAN CORPUSCULAR HEMOGLOBIN 30.8 PG (27.0-34.0); MEAN CORPUSCULAR HGB CONC 32.6 % (32.0-36.0); MONO % 11.6 % (0.0-8.0); NEUT % 61.3 % (16.0-70.0); PLATELET COUNT 183 TH/MM3 (150-450); RED CELL DISTRIBUTION WIDTH 13.7 % (11.6-17.2); WHITE BLOOD COUNT 5.1 TH/MM3 (4.0-11.0)
[2017-03-03] MEDS: INSULIN ASPART SUPPLEMENTAL SCALE SQ SCH ×5 (06:00→23:40)
[2017-03-03] MEDS: FREE WATER G-TUBE SCH ×5 (06:00→23:41)
--- NOTE | 2017-03-03 07:51 | HHI.CCPN ---
Subjective Remarks/Hospital Course 31-year-old male. Resident of [facility] or rehabilitation. Past medical history includes anoxic brain injury 03/21 Temovate due to Haldol administration, recurrent aspiration pneumoniaMDRO positive MRSA positive ESBL positive Escherichia coli in past, hypertension, dyslipidemia, history of pseudocyst/necrotizing, diabetes mellitus presents with a one-week history of nausea/vomiting according to his mother at this nursing facility. He was also recently diagnosed with a fever started on amoxicillin Upon presentation to the ED, patient was noted of temperature 100.2. Leukocytosis 14.5 and elevated transaminases. Lactic acid 4.1. Received 3 L normal saline. Start empirically on piperacillin/tazobactam and vancomycin. Pancultured. Chest x-ray revealed no acute findings. CT abdomen/pelvis and amylase lipase all pending. Upon presentation the floor, patient was tachycardic in acute respiratory distress. Tracheostomy was exchanged for an 8.0-6.0 Shiley. Patient is currently sedated on the ventilator on Midazolam And fentanyl drips. 02/22: Asymptomatically Bradycardic overnight. CT abdomen/pelvis revealed air bronchograms lower lobes bilateral lungs otherwise unremarkable. Will initiate tube feeding today. Potassium will be replaced. 02/23: Became tachycardic overnight with movement. We'll attempt PSV trial today. Off all continuous sedation and analgesia. 02/24: Remains intubated, moves all extremities. tolerating CPAP 06/10. CXR mild basilar infiltrated 02/25: Remains off vasopressor. Tolerated TP 3-4 hours yesterday. Tmax 100.8. Neuro at baseline. G/J tube exchanged. 02/26: Tolerated TP up to 10 hour yesterday. Bloody trach secretions has almost resolved. Chest x-ray is unchanged. Fever trending down 02/27: Hypertensive. Vomited X 2, hold TFs, add reglan. Persistent minimal bloody secretions. 02/28: Failed SBT again today. Pseudomonas persists in sputum. 03/01 Remains hypertensive >180 despite prns. Anisocoria with L pupil 7 mm and sluggishly reactive, has been documented previously by nursing 02/21 and forward. Placed on CPAP 04/10. Tube feeds at 25 mL/hr, being slowly advanced. Having BMs 03/02 U/s from E with occlusive thrombus bilateral cephalic's, right basilic, nonocclusive thrombus of right brachial and left basilic. Will discontinue Midline from outside facility. U/s guided PIV for completion of abx course. Was net even yesterday with diuretics and creatinine now downtrended to 1.23 Tolerating CPAP Subjective: 03/03: no clinical changes. tolerating CPAP. weaning. Objective Vital Signs Date Time Temp Pulse Resp B/P (MAP) Pulse Ox O2 Delivery O2 Flow Rate FiO2 03/03/17 06:00 84 03/03/17 04:16 100 40 03/03/17 04:00 100.0 18 176/79 (111) 03/02/17 19:00 T-Piece Intake and Output 03/03/17 03/03/17 03/03/17 07:59 15:59 23:59 Intake Total 930 ml Output Total 1000 ml Balance -70 ml Result Diagram: 03/03/17 0445 03/03/17 0445 Imaging Last Impressions Chest X-Ray 02/22/17 0000 Signed Impressions: Service Date/Time: Wednesday, February 22, 2017 03:56 - CONCLUSION: 1. Mild basilar airspace disease. No significant effusion. No pneumothorax. Stephan Rich MD Sinuses CT 02/21/17 0000 Signed Impressions: Service Date/Time: Tuesday, February 21, 2017 22:44 - CONCLUSION: 1. No evidence for acute sinusitis. Mucosal thickening right maxillary sinus. Stephan Rich MD Abdomen/Pelvis CT 02/21/17 0000 Signed Impressions: Service Date/Time: Tuesday, February 21, 2017 22:47 - CONCLUSION: 1. Basilar dependent lung consolidation with air bronchograms. Differential diagnosis includes pneumonia and aspiration. 2. Feeding gastrojejunostomy present. No bowel dilatation or evidence for obstruction. Mild constipation. Stephan Rich MD Objective Remarks GENERAL: 31-year-old -Dominican male, critically ill-appearing SKIN: Mild diaphoresis No rash. HEAD: Atraumatic. Normocephalic. EYES: Right pupil 5 mm and sluggishly reactive, L pupil 7mm questionably reactive. . No scleral icterus. No injection or drainage. ENT: No nasal bleeding or discharge. Mucous membranes pink and moist. NECK: Trachea midline. No JVD. #[address] CARDIOVASCULAR: rrr, rate in 60s. RESPIRATORY: equal chest rise. unlabored. on CPAP. GASTROINTESTINAL: Abdomen soft, non-tender, nondistended. GJ tube in left upper quadrant is clean dry and intact : condom cath in place MUSCULOSKELETAL: Contracted. NEUROLOGICAL: Eyes are open spontaneously, no tracking, no response to visual threat. Chewing movement with mouth intermittently. Bilateral extremities are in flexion, contracted. Bilateral lower extremities with rigidity, foot drop bilaterally. A/P Assessment and Plan Neuro/Psych: Anisocoria - appears is chronic. History of anoxic brain injury Chronic muscle relaxant use Seizure disorder NOS Continue levetiracetam 1000 mg by PEG tube twice a day for seizure disorder, Seizure precautions As needed lorazepam 0.5-1 mg every 2 hours by PEG tube for agitation Baclofen 20 3 times a day Acetaminophen for fever/pain Previously on oxycodone/acetaminophen 5/325 one tablet every 4 hours when necessary pain. Resumed 02/22 CT brain - c/w sever anoxic injury with no acute findings. Sinus scan from 02/21 with atrophy but no acute abnormality. CV: Sinus bradycardia History of hypertension History dyslipidemia Lactic acidosis KVO IVF as per below Hydralazine 50 every 8 hours. Norvasc 10 mg daily Hydralazine 20 mg IV every 3 hours when necessary systolic blood pressure greater than 160 Chronic medication of metoprolol 25 twice a day is on hold due to bradycardia Resp: Acute respiratory failure secondary to aspiration pneumonia Status post tracheostomy exchange TP up to 10 hours 02/25. Subsequently had not tolerated CPAP but 03/02 seems to be improving. Continue daily CPAP and transition to Tpiece trials. Ventilator bundle. Albuterol/ipratropium every 6 hours aerosols with albuterol nebulizers every 2 hours Chest x-ray 02/22 revealed lower lobe infiltrates bilaterally. CXR 02/25 essentially clear #8 Shiley percutaneous tracheostomy downsized #6 Shiley on 02/21 due to respiratory distress. (Per Dr. Mantilla, unable to pass new 8.0 Shiley and 6.0 was placed) GI: Nausea/vomiting Elevated transaminases History pancreatitis/pseudocyst Chronic protein energy malnutrition Follow-up on CT abdomen/pelvis revealed air bronchograms bilateral. Gastric tube in place. No signs of ileus or obstruction. Tube feeding with vital 1.5 goal 50 cc an hour per nutrition recommendations from 02/28 IR exchanged G/J Tube 02/25 Pantoprazole for GI prophylaxis. Docusate sodium/senna twice a day for bowel regimen. Having bowel movements. FEN/RENAL: Hypernatremia Hypophosphatemia (resolved) Hypokalemia Pseudohyperkalemia 03/01 (hemolysis) Acute kidney injury. Nonoliguric. FeNa 3% c/w ATN. Urine eosinophils negative 02/27 Creatinine downtrending. Lasix 40 mgIV q8 hours, KCl 25 [id number] x3 doses Discontinued 0.9 NaC on 03/01. On free water flushes 200 every 6. Replace electrolytes per ICU electrolyte replacement protocol. Condom cath. Renal ultrasound 02/26 - R kidney enlarged. No hydronephrosis. Endo: Diabetes mellitus Sliding-scale insulin with NovoLog with Accu-Cheks to maintain euglycemia/low regimen every 6 hours Heme: Normocytic anemia Thrombocytopenia Chronic Apixaban Multiple superficial and deep upper extremity thromboses occlusive thrombus bilateral cephalic's, right basilic, nonocclusive thrombus of right brachial and left basilic on u/s 03/01 Apixaban 5 mg bid per tube. ID: Pseudomonas pneumonia Strep viridans bacteremia - Present on admission, midline catheter associated. History ESBL positive Escherichia coli MDRO positive History MRSA Currently on Cefepime 02/27 - , tobramycin nebs 02/25-02/[address] Reynolds Blood cultures 2 02/21 strep viridans, sputum culture Pseudomonas. Repeat blood cultures 02/23 neg to date. Midline catheter placed at [facility] ~1.5 weeks prior to admission per mother. H/o dvt LUE in past (~ 1 year ago) so performed u/s extremities to eval for DVT prior to possible new u/s guided line. PIVs, midline discontinued UA, Legionella pneumococcal urinary antigen, influenza all negative/no growth 2-D echocardiogram ordered rule out endocarditis-neg for veg MSK: Muscle contractures PT evaluate and treat Access - Utilize peripheral IV. Prophylaxis - GI - pantoprazole 40 mg IV daily for stress ulcer prophylaxis. - DVT - SCD/Apixaban 5 mg twice a day ACCESS: Patient with severe anoxic injury whose overall long-term prognosis is poor. Now with carbapenem resistant Pseudomonas pneumonia. Mother updated by telephone 03/01 and 03/02 and multiple questions answered. She confirms she desires FULL CODE. Viktor Smith MD Mar 03, 2017 07:51
[2017-03-03] MEDS: RESP: TOBRAMYCIN SULFATE 80 MG/2 ML NEB NEB SCH ×2 (08:24→20:15)
[2017-03-03] MEDS: ARTIFICIAL TEARS OPTH SOLN 15 ML BTL EACH EYE SCH ×3 (08:26→17:23)
[2017-03-03] MEDS: CHLORHEXIDINE 0.12% (ORAL KIT) 15 ML CUP MT SCH ×2 (08:26→20:00)
[2017-03-03] MEDS: PANTOPRAZOLE SODIUM 40 MG VIAL IV SCH (08:28)
[2017-03-03] MEDS: DOCUSATE SODIUM 50 MG/SENNA 8.6 MG TAB PO SCH ×3 (08:31→21:00)
[2017-03-03] MEDS: BACLOFEN 20 MG TAB G-TUBE SCH ×3 (08:31→17:23)
[2017-03-03] MEDS: APIXABAN 5 MG TABLET G-TUBE SCH ×2 (08:32→21:57)
[2017-03-03] MEDS: LORATADINE 10 MG TAB G-TUBE SCH (08:32)
[2017-03-03] MEDS: levETIRAcetam 500 MG/5 ML UDC G-TUBE SCH ×2 (08:33→21:56)
[2017-03-03] MEDS: SODIUM CHLORIDE 0.9% FLUSH 10 ML FLUSH IV FLUSH SCH ×2 (08:33→21:00)
--- NOTE | 2017-03-03 09:03 | HHI.PR ---
Subjective Remarks alert on the ventilator no further hemoptysis Objective Vital Signs Date Time Temp Pulse Resp B/P (MAP) Pulse Ox O2 Delivery O2 Flow Rate FiO2 03/03/17 08:03 40 03/03/17 07:58 100 40 03/03/17 06:00 84 03/03/17 04:16 100 40 03/03/17 04:00 40 03/03/17 04:00 59 03/03/17 04:00 100.0 67 18 176/79 (111) 100 03/03/17 02:27 100 40 03/03/17 02:00 54 03/03/17 00:00 52 03/03/17 00:00 99.3 52 16 131/60 (83) 100 03/03/17 00:00 40 03/02/17 22:00 58 03/02/17 20:14 100 40 03/02/17 20:00 28 03/02/17 20:00 58 03/02/17 20:00 99.8 58 19 165/70 (101) 100 03/02/17 19:00 98 T-Piece 28 03/02/17 18:00 54 03/02/17 17:40 40 03/02/17 16:00 66 03/02/17 16:00 40 03/02/17 16:00 99.0 66 17 144/63 (90) 100 03/02/17 15:11 100 40 03/02/17 14:00 67 03/02/17 12:24 100 40 03/02/17 12:00 40 03/02/17 12:00 55 03/02/17 12:00 99.0 81 25 151/61 (91) 100 03/02/17 10:00 52 03/02/17 09:04 40 I/O 03/02/17 03/02/17 03/02/17 03/03/17 03/03/17 03/03/17 07:00 15:00 23:00 07:00 15:00 23:00 Intake Total 1825 ml 100 ml 1005 ml 930 ml Output Total 1500 ml 1500 ml 1000 ml Balance 325 ml 100 ml -495 ml -70 ml Intake Oral 0 ml IV Total 1059 ml 100 ml 201 ml 130 ml Tube Feeding 366 ml 404 ml 600 ml Other 400 ml 400 ml 200 ml Output Urine Total 1500 ml 1500 ml 1000 ml Stool Total 0 ml # Bowel Movements 0 Result Diagram: 03/03/17 0445 03/03/17 0445 Objective Remarks GENERAL: SKIN: Warm and dry. HEAD: Atraumatic. Normocephalic. EYES: Pupils equal and round. No scleral icterus. No injection or drainage. ENT: No nasal bleeding or discharge. Mucous membranes pink and moist. NECK: Trachea midline. No JVD., tracheostomy in place CARDIOVASCULAR: Regular rate and rhythm. RESPIRATORY: No accessory muscle use. Clear to auscultation. Breath sounds equal bilaterally. GASTROINTESTINAL: Abdomen soft, non-tender, nondistended. Hepatic and splenic margins not palpable. MUSCULOSKELETAL: Extremities without clubbing, cyanosis, or edema. No obvious deformities. NEUROLOGICAL: Awake and alert. No obvious cranial nerve deficits. Motor grossly within normal limits. Five out of 5 muscle strength in the arms and legs. Normal speech. PSYCHIATRIC: Appropriate mood and affect; insight and judgment normal. Assessment and Plan Assessment and Plan respiratory failue encephalopathy s/p tracheostomy sepsis hemoptysis , resolved plan vent support wean as tolerated antibx pulmonary toilet outlook poor Justin Anderson MD Mar 03, 2017 09:03
--- NOTE | 2017-03-03 15:51 | HHI.IDPN ---
Subjective Subjective Remarks Patient is a 31-year-old male, who is in chronic vegetative state, due to anoxic brain injury, as a chronic trach, with sides in long-term facility at [facility], brought into the hospital for further evaluation of fever. Patient apparently has been having problem with nausea and vomiting for about a week, and he also started having problem with increased tracheal secretions. More recently he is had a fever, and patient was brought into the hospital for further evaluation and treatment. Patient has had previous hospitalization for pneumonia. On presentation, he was found to have leukocytosis. His temperature was up to 100.2, lactic acid elevated at 4.1. His chest x-ray was negative. CT of the abdomen and pelvis though showed evidence of basilar consolidation with air bronchograms suggestive of pneumonia. He has had previous history of infection with MRSA, as well as Escherichia coli ESBL positive. Patient currently is on the vent, and has no meaningful interaction. He is on the vent, and looks comfortable. His WBC is down to normal. His blood pressure is hemodynamically stable. Infectious disease consultation has been requested to assist in antibiotic management of this patient with aspiration pneumonia, and known history of MDRO infections. Notes reviewed Temps occ 99+ Looks comofrtable on T-piece BP ok, not on pressors No new (+) BC Cultures reviewed Yvrose jordan Has multiple thrombus in both UE Antibiotics Cefepime IV Past Medical History Chronic tracheostomy History of left upper extremity DVT Recurrent aspiration pneumonia Hypertension Dyslipidemia History of pancreatitis/pseudocyst Diabetes mellitus Chronic narcotic use Chronic muscle relaxant use Hx MDRO infections - MRSA, ESBL+ Past Surgical History Tracheostomy, subsequent revision G/J tube placement and revision Allergies: Coded Allergies: haloperidol (Unverified Adverse Reaction, Severe, Seizures, 02/21/17) Objective . Vital Signs Date Time Temp Pulse Resp B/P (MAP) Pulse Ox O2 Delivery O2 Flow Rate FiO2 03/03/17 14:00 88 03/03/17 12:00 70 03/03/17 12:00 98.3 70 24 159/71 (100) 100 03/03/17 10:00 84 03/03/17 09:15 100 T-piece 40 03/03/17 08:03 40 03/03/17 08:00 120 03/03/17 08:00 99.5 120 24 188/77 (114) 100 03/03/17 08:00 40 03/03/17 07:58 100 40 03/03/17 07:00 100 Mechanical Ventilator 40 03/03/17 06:00 84 03/03/17 04:16 100 40 03/03/17 04:00 40 03/03/17 04:00 59 03/03/17 04:00 100.0 67 18 176/79 (111) 100 03/03/17 02:27 100 40 03/03/17 02:00 54 03/03/17 00:00 52 03/03/17 00:00 99.3 52 16 131/60 (83) 100 03/03/17 00:00 40 03/02/17 22:00 58 03/02/17 20:14 100 40 03/02/17 20:00 28 03/02/17 20:00 58 03/02/17 20:00 99.8 58 19 165/70 (101) 100 03/02/17 19:00 98 T-Piece 28 03/02/17 18:00 54 03/02/17 17:40 40 03/02/17 16:00 66 03/02/17 16:00 40 03/02/17 16:00 99.0 66 17 144/63 (90) 100 . Laboratory Tests Test 03/02/17 05:44 03/03/17 04:45 White Blood Count 4.3 TH/MM3 5.1 TH/MM3 Red Blood Count 4.14 MIL/MM3 4.40 MIL/MM3 Hemoglobin 12.7 GM/DL 13.6 GM/DL Hematocrit 38.4 % 41.6 % Mean Corpuscular Volume 92.9 FL 94.5 FL Mean Corpuscular Hemoglobin 30.8 PG 30.8 PG Mean Corpuscular Hemoglobin Concent 33.1 % 32.6 % Red Cell Distribution Width 13.6 % 13.7 % Platelet Count 158 TH/MM3 183 TH/MM3 Mean Platelet Volume 10.9 FL 10.9 FL Neutrophils (%) (Auto) 55.0 % 61.3 % Lymphocytes (%) (Auto) 27.3 % 23.4 % Monocytes (%) (Auto) 13.2 % 11.6 % Eosinophils (%) (Auto) 3.9 % 3.2 % Basophils (%) (Auto) 0.6 % 0.5 % Neutrophils # (Auto) 2.4 TH/MM3 3.2 TH/MM3 Lymphocytes # (Auto) 1.2 TH/MM3 1.2 TH/MM3 Monocytes # (Auto) 0.6 TH/MM3 0.6 TH/MM3 Eosinophils # (Auto) 0.2 TH/MM3 0.2 TH/MM3 Basophils # (Auto) 0.0 TH/MM3 0.0 TH/MM3 CBC Comment DIFF FINAL DIFF FINAL Differential Comment Laboratory Tests Test 03/02/17 05:44 03/03/17 04:45 Blood Urea Nitrogen 11 MG/DL 13 MG/DL Creatinine 1.23 MG/DL 1.35 MG/DL Random Glucose 108 MG/DL 113 MG/DL Calcium Level 8.6 MG/DL 9.1 MG/DL Sodium Level 147 MEQ/L 144 MEQ/L Potassium Level 3.1 MEQ/L 3.3 MEQ/L Chloride Level 113 MEQ/L 110 MEQ/L Carbon Dioxide Level 22.7 MEQ/L 24.9 MEQ/L Anion Gap 11 MEQ/L 9 MEQ/L Estimat Glomerular Filtration Rate 84 ML/MIN 75 ML/MIN Imaging Upper Extremity Ultrasound 03/01/17 0000 Signed Impressions: Service Date/Time: Wednesday, March 01, 2017 20:17 - CONCLUSION: Occlusive thrombus within the cephalic veins bilaterally and the right basilic vein as well as nonocclusive thrombus within the right brachial and left basilic veins. Peter Nolan MD Head CT 03/01/17 0000 Signed Impressions: Service Date/Time: Wednesday, March 01, 2017 11:29 - CONCLUSION: Noncontrast CT findings are typical of a severe, diffuse anoxic cerebral event, probably subacute. No bleed. No midline shift. Santo Fisher MD Chest X-Ray 02/27/17 0600 Signed Impressions: Service Date/Time: February 05:02 - CONCLUSION: 1. Right basilar airspace disease similar to February 26. No new findings. Stephan Rich MD Renal Ultrasound 02/26/17 0000 Signed Impressions: Service Date/Time: Sunday, February 26, 2017 23:26 - CONCLUSION: 1. Right kidney is enlarged. No hydronephrosis identified. No acute findings. Stephan Rich MD Tube Change 02/25/17 0000 Signed Impressions: Service Date/Time: Saturday, February 25, 2017 10:57 - CONCLUSION: Uncomplicated gastrojejunostomy tube exchange as above. Beny Whalen MD Sinuses CT 02/21/17 0000 Signed Impressions: Service Date/Time: Tuesday, February 21, 2017 22:44 - CONCLUSION: 1. No evidence for acute sinusitis. Mucosal thickening right maxillary sinus. Stephan Rich MD Abdomen/Pelvis CT 02/21/17 0000 Signed Impressions: Service Date/Time: Tuesday, February 21, 2017 22:47 - CONCLUSION: 1. Basilar dependent lung consolidation with air bronchograms. Differential diagnosis includes pneumonia and aspiration. 2. Feeding gastrojejunostomy present. No bowel dilatation or evidence for obstruction. Mild constipation. Stephan Rich MD Last Impressions Chest X-Ray 02/23/17 0600 Signed Impressions: Service Date/Time: Thursday, February 23, 2017 04:16 - CONCLUSION: 1. Marked rightward rotation of the patient. 2. Stable minimal bibasilar airspace disease , left greater than right. 3. No significant change from prior Beny Whalen MD Sinuses CT 02/21/17 0000 Signed Impressions: Service Date/Time: Tuesday, February 21, 2017 22:44 - CONCLUSION: 1. No evidence for acute sinusitis. Mucosal thickening right maxillary sinus. Stephan Rich MD Abdomen/Pelvis CT 02/21/17 0000 Signed Impressions: Service Date/Time: Tuesday, February 21, 2017 22:47 - CONCLUSION: 1. Basilar dependent lung consolidation with air bronchograms. Differential diagnosis includes pneumonia and aspiration. 2. Feeding gastrojejunostomy present. No bowel dilatation or evidence for obstruction. Mild constipation. Setphan Rich MD Physical Exam GENERAL: awake but no interaction, looks comfortable on T-piece SKIN: Warm and dry. HEAD: Atraumatic. Normocephalic. No temporal wasting, or tenderness. EYES: [place] conjunctiva. No petechia or hemorrhage. Pupils equal, round and reactive to light. No scleral icterus. No injection or drainage. EARS, NOSE AND THROAT: Nose without bleeding or purulent nasal discharge. A lot of oral secretions NECK: Tracheostomy site looks ok CARDIOVASCULAR: Regular rate and rhythm. No murmurs, rubs or gallops heard RESPIRATORY: Coarse BS bilaterally, occ rhonchi on R ABDOMEN: Soft, nondistended. Bowel sounds present and normoactive. No reaction to palpation. G/J tube site ok EXTREMITIES: No clubbing, cyanosis, or edema. No joint effusion. HIs UE are less spastic. Well perfused and warm. NEUROLOGICAL: Unresponsive PSYCHIATRIC: Unable to assess LINE: No evidence of infection : [place] in place, urine looks clear Assessment & Plan Remarks IMPRESSION Sepsis on admission, due to PNA - sputum with Pseudomonas Viridans Strep bacteremia, source ? midline present on admission Line related BSI (not a central line, and was present on admission) - echo ok Aspiration PNA, has had N/V x 1 week Chronic vegetative state due to anoxic brain injury Hx MRSA and E coli ESBL (+) infections Renal insufficiency RECOMMENDATION Follow C/S and adjust Abx Continue Cefepime - should have coverage on Viridans Strep and PSAE. Continue Tobramycin nebs. If continues to have cough and irritation may discontinue Tobramycin as it could be an irritant in airway. Follow Creatinine Monitor temps Monitor progress Weaning per CCM Michelle Reynolds MD Mar 03, 2017 15:51
[2017-03-03] MEDS: oxyCODONE/ACETAMINOPHEN 5 MG/325 MG TAB PO PRN (18:46)
[2017-03-03] MEDS: hydrALAZINE HCL 20 MG/ML VIAL IV PUSH PRN (19:35)
[2017-03-03] MEDS: LORazepam 0.5 MG TAB PO PRN (19:35)
[2017-03-03] MEDS: LORazepam 1 MG TAB G-TUBE PRN (21:30)
[2017-03-04] VITALS (15 sets, daily range): BP systolic 113–140; BP diastolic 54–67; PULSE 56–105; RESP 14–18; TEMP 98.1–99.1; O2SAT 98–100
[2017-03-04] MEDS: HYOSCYAMINE 0.125 MG TAB PO SCH ×6 (00:54→20:23)
[2017-03-04] MEDS: CEFEPIME INJ 2,000 MG in SODIUM CHLORIDE 0.9% INJ 100 ML IV SCH ×2 (01:03→13:06)
[2017-03-04] MEDS: FUROSEMIDE 40 MG/4 ML VIAL IV PUSH SCH ×3 (01:03→17:27)
[2017-03-04] MEDS: CHLORHEXIDINE GLUCONATE 2 % 1 PACK (2 CLOTHS) TOP SCH (04:00)
[2017-03-04] MEDS: RESP: ALBUTEROL 2.5 MG/IPRATROPIUM 0.5 MG NEB (SCH) NEB ×4 (04:27→19:54)
[2017-03-04 04:59] LABS: HEMATOCRIT 41.9 % (39.0-51.0); MEAN CELL VOLUME 92.7 FL (80.0-100.0); MEAN CORPUSCULAR HEMOGLOBIN 30.9 PG (27.0-34.0); MEAN CORPUSCULAR HGB CONC 33.3 % (32.0-36.0); PLATELET COUNT 192 TH/MM3 (150-450); RED BLOOD COUNT 4.52 MIL/MM3 (4.50-5.90); RED CELL DISTRIBUTION WIDTH 13.4 % (11.6-17.2); REVIEW FLAG FINAL; WHITE BLOOD COUNT 5.4 TH/MM3 (4.0-11.0)
[2017-03-04] MEDS: hydrALAZINE HCL 50 MG TAB PO SCH ×3 (05:14→21:47)
[2017-03-04] MEDS: LORazepam 1 MG TAB G-TUBE PRN (05:15)
[2017-03-04] MEDS: oxyCODONE/ACETAMINOPHEN 5 MG/325 MG TAB PO PRN ×2 (05:15→16:23)
[2017-03-04] MEDS: METOCLOPRAMIDE HCL 10 MG/2 ML VIAL IV PUSH SCH ×3 (05:15→21:47)
[2017-03-04 05:26] LABS: BICARBONATE 29.4 MEQ/L (21.0-32.0); POTASSIUM 3.7 MEQ/L (3.5-5.1)
[2017-03-04] MEDS: INSULIN ASPART SUPPLEMENTAL SCALE SQ SCH ×3 (06:00→18:00)
[2017-03-04] MEDS: FREE WATER G-TUBE SCH ×3 (06:00→17:26)
--- NOTE | 2017-03-04 07:30 | HHI.CCPN ---
Subjective Remarks/Hospital Course 31-year-old male. Resident of [facility] or rehabilitation. Past medical history includes anoxic brain injury 03/21 Temovate due to Haldol administration, recurrent aspiration pneumoniaMDRO positive MRSA positive ESBL positive Escherichia coli in past, hypertension, dyslipidemia, history of pseudocyst/necrotizing, diabetes mellitus presents with a one-week history of nausea/vomiting according to his mother at this nursing facility. He was also recently diagnosed with a fever started on amoxicillin Upon presentation to the ED, patient was noted of temperature 100.2. Leukocytosis 14.5 and elevated transaminases. Lactic acid 4.1. Received 3 L normal saline. Start empirically on piperacillin/tazobactam and vancomycin. Pancultured. Chest x-ray revealed no acute findings. CT abdomen/pelvis and amylase lipase all pending. Upon presentation the floor, patient was tachycardic in acute respiratory distress. Tracheostomy was exchanged for an 8.0-6.0 Shiley. Patient is currently sedated on the ventilator on Midazolam And fentanyl drips. 02/22: Asymptomatically Bradycardic overnight. CT abdomen/pelvis revealed air bronchograms lower lobes bilateral lungs otherwise unremarkable. Will initiate tube feeding today. Potassium will be replaced. 02/23: Became tachycardic overnight with movement. We'll attempt PSV trial today. Off all continuous sedation and analgesia. 02/24: Remains intubated, moves all extremities. tolerating CPAP 06/10. CXR mild basilar infiltrated 02/25: Remains off vasopressor. Tolerated TP 3-4 hours yesterday. Tmax 100.8. Neuro at baseline. G/J tube exchanged. 02/26: Tolerated TP up to 10 hour yesterday. Bloody trach secretions has almost resolved. Chest x-ray is unchanged. Fever trending down 02/27: Hypertensive. Vomited X 2, hold TFs, add reglan. Persistent minimal bloody secretions. 02/28: Failed SBT again today. Pseudomonas persists in sputum. 03/01 Remains hypertensive >180 despite prns. Anisocoria with L pupil 7 mm and sluggishly reactive, has been documented previously by nursing 02/21 and forward. Placed on CPAP 04/10. Tube feeds at 25 mL/hr, being slowly advanced. Having BMs 03/02 U/s from E with occlusive thrombus bilateral cephalic's, right basilic, nonocclusive thrombus of right brachial and left basilic. Will discontinue Midline from outside facility. U/s guided PIV for completion of abx course. Was net even yesterday with diuretics and creatinine now downtrended to 1.23 Tolerating CPAP Subjective: 03/03: no clinical changes. tolerating CPAP. weaning. 03/04: Tolerating T-piece today. Severe contractures remains problematic. Objective Vital Signs Date Time Temp Pulse Resp B/P (MAP) Pulse Ox O2 Delivery O2 Flow Rate FiO2 03/04/17 06:15 15 03/04/17 06:00 77 03/04/17 04:32 100 T-piece 6.00 40 03/04/17 04:00 98.1 135/63 (87) Intake and Output 03/04/17 03/04/17 03/05/17 08:00 16:00 00:00 Intake Total 521 ml Output Total 300 ml Balance 221 ml Result Diagram: 03/04/17 0342 03/04/17 0342 Imaging Last Impressions Chest X-Ray 02/22/17 0000 Signed Impressions: Service Date/Time: Wednesday, February 22, 2017 03:56 - CONCLUSION: 1. Mild basilar airspace disease. No significant effusion. No pneumothorax. Stephan Rich MD Sinuses CT 02/21/17 0000 Signed Impressions: Service Date/Time: Tuesday, February 21, 2017 22:44 - CONCLUSION: 1. No evidence for acute sinusitis. Mucosal thickening right maxillary sinus. Stephan Rich MD Abdomen/Pelvis CT 02/21/17 0000 Signed Impressions: Service Date/Time: Tuesday, February 21, 2017 22:47 - CONCLUSION: 1. Basilar dependent lung consolidation with air bronchograms. Differential diagnosis includes pneumonia and aspiration. 2. Feeding gastrojejunostomy present. No bowel dilatation or evidence for obstruction. Mild constipation. Stephan Rich MD Objective Remarks GENERAL: 31-year-old -[place] male, critically ill-appearing SKIN: Mild diaphoresis No rash. HEAD: Atraumatic. Normocephalic. EYES: Right pupil 5 mm and sluggishly reactive, L pupil 6 mm questionably reactive. . No scleral icterus. No injection or drainage. ENT: No nasal bleeding or discharge. Mucous membranes pink and moist. NECK: Trachea midline. No JVD. #[address] CARDIOVASCULAR: rrr, rate in 60s. No JVD. RESPIRATORY: equal chest rise. unlabored. on CPAP. GASTROINTESTINAL: Abdomen soft, non-tender, nondistended. GJ tube in left upper quadrant is clean dry and intact : condom cath in place MUSCULOSKELETAL: Contracted joints. NEUROLOGICAL: Eyes are open spontaneously, no tracking, no response to visual threat. Chewing movement with mouth intermittently. Bilateral extremities are in flexion, contracted. Bilateral lower extremities with rigidity, foot drop bilaterally. A/P Assessment and Plan Neuro/Psych: Anisocoria - appears is chronic. History of anoxic brain injury Chronic muscle relaxant use Seizure disorder NOS Continue levetiracetam 1000 mg by PEG tube twice a day for seizure disorder, Seizure precautions As needed lorazepam 0.5-1 mg every 2 hours by PEG tube for agitation Baclofen 20 3 times a day Acetaminophen for fever/pain Previously on oxycodone/acetaminophen 5/325 one tablet every 4 hours when necessary pain. Resumed 02/22 CT brain - c/w sever anoxic injury with no acute findings. Sinus scan from 02/21 with atrophy but no acute abnormality. CV: Sinus bradycardia History of hypertension History dyslipidemia Lactic acidosis KVO IVF as per below Hydralazine 50 every 8 hours. Norvasc 10 mg daily Hydralazine 20 mg IV every 3 hours when necessary systolic blood pressure greater than 160 Chronic medication of metoprolol 25 twice a day is on hold due to bradycardia Resp: Acute respiratory failure secondary to aspiration pneumonia Status post tracheostomy exchange TP up to 10 hours 02/25. Subsequently had not tolerated CPAP but 03/02 seems to be improving. Continue daily CPAP and transition to Tpiece trials. Ventilator bundle. Albuterol/ipratropium every 6 hours aerosols with albuterol nebulizers every 2 hours Chest x-ray 02/22 revealed lower lobe infiltrates bilaterally. CXR 02/25 essentially clear #8 Shiley percutaneous tracheostomy downsized #6 Shiley on 02/21 due to respiratory distress. (Per Dr. Mantilla, unable to pass new 8.0 Shiley and 6.0 was placed) GI: Nausea/vomiting Elevated transaminases History pancreatitis/pseudocyst Chronic protein energy malnutrition Follow-up on CT abdomen/pelvis revealed air bronchograms bilateral. Gastric tube in place. No signs of ileus or obstruction. Tube feeding with vital 1.5 goal 50 cc an hour per nutrition recommendations from 02/28 IR exchanged G/J Tube 02/25 Pantoprazole for GI prophylaxis. Docusate sodium/senna twice a day for bowel regimen. Having bowel movements. FEN/RENAL: Hypernatremia Hypophosphatemia (resolved) Hypokalemia Pseudohyperkalemia 03/01 (hemolysis) Acute kidney injury. Nonoliguric. FeNa 3% c/w ATN. Urine eosinophils negative 02/27 Creatinine downtrending. Lasix 40 mgIV q8 hours, KCl 25 x7qccju x3 doses Discontinued 0.9 NaC on 03/01. On free water flushes 200 every 6. Replace electrolytes per ICU electrolyte replacement protocol. Condom cath. Renal ultrasound 02/26 - R kidney enlarged. No hydronephrosis. Endo: Diabetes mellitus Sliding-scale insulin with NovoLog with Accu-Cheks to maintain euglycemia/low regimen every 6 hours Heme: Normocytic anemia Thrombocytopenia Chronic Apixaban Multiple superficial and deep upper extremity thromboses occlusive thrombus bilateral cephalic's, right basilic, nonocclusive thrombus of right brachial and left basilic on u/s 03/01 Apixaban 5 mg bid per tube. ID: Pseudomonas pneumonia Strep viridans bacteremia - Present on admission, midline catheter associated. History ESBL positive Escherichia coli MDRO positive History MRSA Currently on Cefepime 02/27 - , tobramycin nebs 02/25-02/[address] Reynolds Blood cultures 2 02/21 strep viridans, sputum culture Pseudomonas. Repeat blood cultures 02/23 neg to date. Midline catheter placed at group home ~1.5 weeks prior to admission per mother. H/o dvt LUE in past (~ 1 year ago) so performed u/s extremities to eval for DVT prior to possible new u/s guided line. PIVs, midline discontinued UA, Legionella pneumococcal urinary antigen, influenza all negative/no growth 2-D echocardiogram ordered rule out endocarditis-neg for veg MSK: Muscle contractures PT evaluate and treat Access - Utilize peripheral IV. Prophylaxis - GI - pantoprazole 40 mg IV daily for stress ulcer prophylaxis. - DVT - SCD/Apixaban 5 mg twice a day ACCESS: Patient with severe anoxic injury whose overall long-term prognosis is poor. Now with carbapenem resistant Pseudomonas pneumonia. Mother updated by telephone 03/01 and 03/02 and multiple questions answered. She confirms she desires FULL CODE. Overall impression: Will require a skilled facility I suspect. Franklin Bahena MD Mar 04, 2017 07:30
[2017-03-04] MEDS: RESP: TOBRAMYCIN SULFATE 80 MG/2 ML NEB NEB SCH (08:06)
[2017-03-04] MEDS: levETIRAcetam 500 MG/5 ML UDC G-TUBE SCH ×2 (08:39→20:23)
[2017-03-04] MEDS: LORATADINE 10 MG TAB G-TUBE SCH (08:39)
[2017-03-04] MEDS: BACLOFEN 20 MG TAB G-TUBE SCH ×3 (08:40→17:26)
[2017-03-04] MEDS: SODIUM CHLORIDE 0.9% FLUSH 10 ML FLUSH IV FLUSH SCH ×2 (08:41→20:26)
[2017-03-04] MEDS: ARTIFICIAL TEARS OPTH SOLN 15 ML BTL EACH EYE SCH ×3 (08:41→17:26)
[2017-03-04] MEDS: APIXABAN 5 MG TABLET G-TUBE SCH ×2 (08:41→21:47)
[2017-03-04] MEDS: PANTOPRAZOLE SODIUM 40 MG VIAL IV SCH (08:41)
[2017-03-04] MEDS: CHLORHEXIDINE 0.12% (ORAL KIT) 15 ML CUP MT SCH ×2 (08:41→20:00)
[2017-03-04] MEDS: DOCUSATE SODIUM 50 MG/SENNA 8.6 MG TAB PO SCH ×2 (08:42→21:00)
--- NOTE | 2017-03-04 15:50 | HHI.PR ---
Subjective Remarks alert on the ventilator no further hemoptysis Objective Vital Signs Date Time Temp Pulse Resp B/P (MAP) Pulse Ox O2 Delivery O2 Flow Rate FiO2 03/04/17 15:38 100 T-piece 35 03/04/17 14:00 70 03/04/17 12:00 98.3 88 16 140/67 (91) 99 03/04/17 12:00 88 03/04/17 12:00 35 03/04/17 10:00 62 03/04/17 08:00 100 T-piece 35 03/04/17 08:00 35 03/04/17 08:00 74 03/04/17 08:00 98.8 74 15 113/54 (73) 100 03/04/17 07:00 100 T-Piece 40 03/04/17 06:15 15 03/04/17 06:00 77 03/04/17 04:32 100 T-piece 6.00 40 03/04/17 04:00 40 03/04/17 04:00 98.1 66 18 135/63 (87) 100 03/04/17 04:00 56 03/04/17 02:00 73 03/04/17 00:22 99 T-piece 6.00 40 03/04/17 00:00 65 03/04/17 00:00 99.1 68 15 131/64 (86) 100 03/04/17 00:00 40 03/03/17 22:00 95 03/03/17 21:04 100 T-piece 40.00 03/03/17 20:00 40 03/03/17 20:00 99.6 125 26 176/91 (119) 100 03/03/17 20:00 125 03/03/17 19:00 100 T-Piece 40 03/03/17 18:00 115 03/03/17 16:00 99.0 120 20 177/77 (110) 100 03/03/17 16:00 40 03/03/17 16:00 120 I/O 03/03/17 03/03/17 03/03/17 03/04/17 03/04/17 03/04/17 07:00 15:00 23:00 07:00 15:00 23:00 Intake Total 930 ml 100 ml 1176 ml 812 ml Output Total 1000 ml 2100 ml 850 ml Balance -70 ml 100 ml -924 ml -38 ml Intake Oral 0 ml IV Total 130 ml 100 ml 140 ml Tube Feeding 600 ml 626 ml 272 ml Other 200 ml 550 ml 400 ml Output Urine Total 1000 ml 2100 ml 850 ml Stool Total 0 ml 0 ml # Bowel Movements 2 Result Diagram: 03/04/17 03403/04/17 034 Objective Remarks GENERAL: SKIN: Warm and dry. HEAD: Atraumatic. Normocephalic. EYES: Pupils equal and round. No scleral icterus. No injection or drainage. ENT: No nasal bleeding or discharge. Mucous membranes pink and moist. NECK: Trachea midline. No JVD., tracheostomy in place CARDIOVASCULAR: Regular rate and rhythm. RESPIRATORY: No accessory muscle use. Clear to auscultation. Breath sounds equal bilaterally. GASTROINTESTINAL: Abdomen soft, non-tender, nondistended. Hepatic and splenic margins not palpable. MUSCULOSKELETAL: Extremities without clubbing, cyanosis, or edema. No obvious deformities. NEUROLOGICAL: Awake and alert. No obvious cranial nerve deficits. Motor grossly within normal limits. Five out of 5 muscle strength in the arms and legs. Normal speech. PSYCHIATRIC: Appropriate mood and affect; insight and judgment normal. Assessment and Plan Assessment and Plan respiratory failue encephalopathy s/p tracheostomy sepsis hemoptysis , resolved plan vent support wean as tolerated antibx pulmonary toilet outlook poor Justin Anderson MD Mar 04, 2017 15:50
[2017-03-04] MEDS: hydrALAZINE HCL 20 MG/ML VIAL IV PUSH PRN (18:05)
[2017-03-05] VITALS (15 sets, daily range): BP systolic 118–164; BP diastolic 58–72; PULSE 65–114; RESP 17–21; TEMP 98.8–99.5; O2SAT 35–100
[2017-03-05] MEDS: HYOSCYAMINE 0.125 MG TAB PO SCH ×6 (01:24→20:58)
[2017-03-05] MEDS: CEFEPIME INJ 2,000 MG in SODIUM CHLORIDE 0.9% INJ 100 ML IV SCH ×2 (01:24→13:21)
[2017-03-05] MEDS: FUROSEMIDE 40 MG/4 ML VIAL IV PUSH SCH ×3 (01:25→18:22)
[2017-03-05] MEDS: RESP: ALBUTEROL 2.5 MG/IPRATROPIUM 0.5 MG NEB (SCH) NEB ×2 (03:17→09:11)
[2017-03-05] MEDS: CHLORHEXIDINE GLUCONATE 2 % 1 PACK (2 CLOTHS) TOP SCH (04:00)
[2017-03-05 04:22] LABS: HEMATOCRIT 44.3 % (39.0-51.0); MEAN CELL VOLUME 93.4 FL (80.0-100.0); MEAN CORPUSCULAR HEMOGLOBIN 31.6 PG (27.0-34.0); MEAN CORPUSCULAR HGB CONC 33.8 % (32.0-36.0); PLATELET COUNT 177 TH/MM3 (150-450); RED BLOOD COUNT 4.74 MIL/MM3 (4.50-5.90); RED CELL DISTRIBUTION WIDTH 13.6 % (11.6-17.2); REVIEW FLAG FINAL; WHITE BLOOD COUNT 5.6 TH/MM3 (4.0-11.0)
[2017-03-05 04:47] LABS: POTASSIUM 3.7 MEQ/L (3.5-5.1)
[2017-03-05] MEDS: hydrALAZINE HCL 50 MG TAB PO SCH ×3 (05:03→21:16)
[2017-03-05] MEDS: FREE WATER G-TUBE SCH ×4 (05:03→18:00)
[2017-03-05] MEDS: METOCLOPRAMIDE HCL 10 MG/2 ML VIAL IV PUSH SCH ×3 (05:03→21:18)
[2017-03-05] MEDS: INSULIN ASPART SUPPLEMENTAL SCALE SQ SCH ×4 (06:00→18:00)
[2017-03-05] MEDS: CHLORHEXIDINE 0.12% (ORAL KIT) 15 ML CUP MT SCH ×2 (08:00→20:00)
[2017-03-05] MEDS: ARTIFICIAL TEARS OPTH SOLN 15 ML BTL EACH EYE SCH ×3 (09:00→18:00)
[2017-03-05] MEDS: SODIUM CHLORIDE 0.9% FLUSH 10 ML FLUSH IV FLUSH SCH ×2 (09:00→20:58)
--- NOTE | 2017-03-05 09:33 | HHI.CCPN ---
Subjective Remarks/Hospital Course 31-year-old male. Resident of [facility] or rehabilitation. Past medical history includes anoxic brain injury 03/21 Temovate due to Haldol administration, recurrent aspiration pneumoniaMDRO positive MRSA positive ESBL positive Escherichia coli in past, hypertension, dyslipidemia, history of pseudocyst/necrotizing, diabetes mellitus presents with a one-week history of nausea/vomiting according to his mother at this nursing facility. He was also recently diagnosed with a fever started on amoxicillin Upon presentation to the ED, patient was noted of temperature 100.2. Leukocytosis 14.5 and elevated transaminases. Lactic acid 4.1. Received 3 L normal saline. Start empirically on piperacillin/tazobactam and vancomycin. Pancultured. Chest x-ray revealed no acute findings. CT abdomen/pelvis and amylase lipase all pending. Upon presentation the floor, patient was tachycardic in acute respiratory distress. Tracheostomy was exchanged for an 8.0-6.0 Shiley. Patient is currently sedated on the ventilator on Midazolam And fentanyl drips. 02/22: Asymptomatically Bradycardic overnight. CT abdomen/pelvis revealed air bronchograms lower lobes bilateral lungs otherwise unremarkable. Will initiate tube feeding today. Potassium will be replaced. 02/23: Became tachycardic overnight with movement. We'll attempt PSV trial today. Off all continuous sedation and analgesia. 02/24: Remains intubated, moves all extremities. tolerating CPAP 06/10. CXR mild basilar infiltrated 02/25: Remains off vasopressor. Tolerated TP 3-4 hours yesterday. Tmax 100.8. Neuro at baseline. G/J tube exchanged. 02/26: Tolerated TP up to 10 hour yesterday. Bloody trach secretions has almost resolved. Chest x-ray is unchanged. Fever trending down 02/27: Hypertensive. Vomited X 2, hold TFs, add reglan. Persistent minimal bloody secretions. 02/28: Failed SBT again today. Pseudomonas persists in sputum. 03/01 Remains hypertensive >180 despite prns. Anisocoria with L pupil 7 mm and sluggishly reactive, has been documented previously by nursing 02/21 and forward. Placed on CPAP 04/10. Tube feeds at 25 mL/hr, being slowly advanced. Having BMs 03/02 U/s from E with occlusive thrombus bilateral cephalic's, right basilic, nonocclusive thrombus of right brachial and left basilic. Will discontinue Midline from outside facility. U/s guided PIV for completion of abx course. Was net even yesterday with diuretics and creatinine now downtrended to 1.23 Tolerating CPAP Subjective: 03/03: no clinical changes. tolerating CPAP. weaning. 03/04: Tolerating T-piece today. Severe contractures remains problematic. 03/05: Off ventilator. Tolerates T-piece. Needs ongoing PT/OT. Objective Vital Signs Date Time Temp Pulse Resp B/P (MAP) Pulse Ox O2 Delivery O2 Flow Rate FiO2 03/05/17 09:11 35 T-piece 6.00 35 03/05/17 08:00 98.9 96 21 138/62 (87) Intake and Output 03/05/17 03/05/17 03/05/17 07:59 15:59 23:59 Intake Total 1223 ml Output Total 1000 ml Balance 223 ml Result Diagram: 03/05/17 0409 03/05/17 0409 Imaging Last Impressions Chest X-Ray 02/22/17 0000 Signed Impressions: Service Date/Time: Wednesday, February 22, 2017 03:56 - CONCLUSION: 1. Mild basilar airspace disease. No significant effusion. No pneumothorax. Stephan Rich MD Sinuses CT 02/21/17 0000 Signed Impressions: Service Date/Time: Tuesday, February 21, 2017 22:44 - CONCLUSION: 1. No evidence for acute sinusitis. Mucosal thickening right maxillary sinus. Stephan Rich MD Abdomen/Pelvis CT 02/21/17 0000 Signed Impressions: Service Date/Time: Tuesday, February 21, 2017 22:47 - CONCLUSION: 1. Basilar dependent lung consolidation with air bronchograms. Differential diagnosis includes pneumonia and aspiration. 2. Feeding gastrojejunostomy present. No bowel dilatation or evidence for obstruction. Mild constipation. Stephan Rich MD Objective Remarks GENERAL: 31-year-old -[place] male, critically ill-appearing SKIN: Mild diaphoresis No rash. HEAD: Atraumatic. Normocephalic. EYES: Right pupil 5 mm and sluggishly reactive, L pupil 7 mm questionably reactive. No conjunctival icterus. No injection or drainage. ENT: No nasal bleeding or discharge. Mucous membranes pink and moist. NECK: Trachea midline. No JVD. #[address] CARDIOVASCULAR: NL S1S2 rate in 60s. No JVD. RESPIRATORY: equal chest rise. unlabored. on trach collar GASTROINTESTINAL: Abdomen soft, non-tender, nondistended. GJ tube in left upper quadrant is clean dry and intact : condom cath in place MUSCULOSKELETAL: Contracted joints. NEUROLOGICAL: Eyes are open spontaneously, no tracking, no response to visual threat. Chewing movement with mouth intermittently. Bilateral extremities are in flexion, contracted. Bilateral lower extremities with rigidity, foot drop bilaterally. A/P Assessment and Plan Neuro/Psych: Anisocoria - appears is chronic. History of anoxic brain injury Chronic muscle relaxant use Seizure disorder NOS Continue levetiracetam 1000 mg by PEG tube twice a day for seizure disorder, Seizure precautions As needed lorazepam 0.5-1 mg every 2 hours by PEG tube for agitation Baclofen 20 3 times a day Acetaminophen for fever/pain Previously on oxycodone/acetaminophen 5/325 one tablet every 4 hours when necessary pain. Resumed 02/22 CT brain - c/w sever anoxic injury with no acute findings. Sinus scan from 02/21 with atrophy but no acute abnormality. CV: Sinus bradycardia History of hypertension History dyslipidemia Lactic acidosis KVO IVF as per below Hydralazine 50 every 8 hours. Norvasc 10 mg daily Hydralazine 20 mg IV every 3 hours when necessary systolic blood pressure greater than 160 Chronic medication of metoprolol 25 twice a day is on hold due to bradycardia Resp: Acute respiratory failure secondary to aspiration pneumonia Status post tracheostomy exchange TP up to 10 hours 02/25. Subsequently had not tolerated CPAP but 03/02 seems to be improving. Continue daily CPAP and transition to Tpiece trials. Ventilator bundle. Albuterol/ipratropium every 6 hours aerosols with albuterol nebulizers every 2 hours Chest x-ray 02/22 revealed lower lobe infiltrates bilaterally. CXR 02/25 essentially clear #8 Shiley percutaneous tracheostomy downsized #6 Shiley on 02/21 due to respiratory distress. (Per Dr. Mantilla, unable to pass new 8.0 Shiley and 6.0 was placed) GI: Nausea/vomiting Elevated transaminases History pancreatitis/pseudocyst Chronic protein energy malnutrition Follow-up on CT abdomen/pelvis revealed air bronchograms bilateral. Gastric tube in place. No signs of ileus or obstruction. Tube feeding with vital 1.5 goal 50 cc an hour per nutrition recommendations from 02/28 IR exchanged G/J Tube 02/25 Pantoprazole for GI prophylaxis. Docusate sodium/senna twice a day for bowel regimen. Having bowel movements. FEN/RENAL: Hypernatremia Hypophosphatemia (resolved) Hypokalemia Pseudohyperkalemia 03/01 (hemolysis) Acute kidney injury. Nonoliguric. FeNa 3% c/w ATN. Urine eosinophils negative 02/27 Creatinine downtrending. Lasix 40 mgIV q8 hours, KCl 25 q9qvbya x3 doses Discontinued 0.9 NaC on 03/01. On free water flushes 200 every 6. Replace electrolytes per ICU electrolyte replacement protocol. Condom cath. Renal ultrasound 02/26 - R kidney enlarged. No hydronephrosis. Endo: Diabetes mellitus Sliding-scale insulin with NovoLog with Accu-Cheks to maintain euglycemia/low regimen every 6 hours Heme: Normocytic anemia Thrombocytopenia Chronic Apixaban Multiple superficial and deep upper extremity thromboses occlusive thrombus bilateral cephalic's, right basilic, nonocclusive thrombus of right brachial and left basilic on u/s 03/01 Apixaban 5 mg bid per tube. ID: Pseudomonas pneumonia Strep viridans bacteremia - Present on admission, midline catheter associated. History ESBL positive Escherichia coli MDRO positive History MRSA Currently on Cefepime 02/27 - , tobramycin nebs 02/25-02/[address] Reynolds Blood cultures 2 02/21 strep viridans, sputum culture Pseudomonas. Repeat blood cultures 02/23 neg to date. Midline catheter placed at [facility] ~1.5 weeks prior to admission per mother. H/o dvt LUE in past (~ 1 year ago) so performed u/s extremities to eval for DVT prior to possible new u/s guided line. PIVs, midline discontinued UA, Legionella pneumococcal urinary antigen, influenza all negative/no growth 2-D echocardiogram ordered rule out endocarditis-neg for veg MSK: Muscle contractures PT evaluate and treat Access - Utilize peripheral IV. Prophylaxis - GI - pantoprazole 40 mg IV daily for stress ulcer prophylaxis. - DVT - SCD/Apixaban 5 mg twice a day ACCESS: Patient with severe anoxic injury whose overall long-term prognosis is quite poor. Now with carbapenem resistant Pseudomonas pneumonia. Mother updated by telephone 03/01 and 03/02 and multiple questions answered. She confirms she desires FULL CODE. Overall impression: Will require PT/OT and long-tern care. [facility] has turned him down. Franklin Bahena MD Mar 05, 2017 09:33
[2017-03-05] MEDS: levETIRAcetam 500 MG/5 ML UDC G-TUBE SCH ×2 (09:39→20:58)
[2017-03-05] MEDS: PANTOPRAZOLE SODIUM 40 MG VIAL IV SCH (09:40)
[2017-03-05] MEDS: BACLOFEN 20 MG TAB G-TUBE SCH ×3 (09:40→18:22)
[2017-03-05] MEDS: LORATADINE 10 MG TAB G-TUBE SCH (09:40)
[2017-03-05] MEDS: APIXABAN 5 MG TABLET G-TUBE SCH ×2 (09:40→20:58)
[2017-03-05] MEDS: DOCUSATE SODIUM 50 MG/SENNA 8.6 MG TAB PO SCH ×2 (09:41→20:58)
--- NOTE | 2017-03-05 12:32 | HHI.IDPN ---
Subjective Subjective Remarks Patient is a 31-year-old male, who is in chronic vegetative state, due to anoxic brain injury, as a chronic trach, with sides in long-term facility at [place], brought into the hospital for further evaluation of fever. Patient apparently has been having problem with nausea and vomiting for about a week, and he also started having problem with increased tracheal secretions. More recently he is had a fever, and patient was brought into the hospital for further evaluation and treatment. Patient has had previous hospitalization for pneumonia. On presentation, he was found to have leukocytosis. His temperature was up to 100.2, lactic acid elevated at 4.1. His chest x-ray was negative. CT of the abdomen and pelvis though showed evidence of basilar consolidation with air bronchograms suggestive of pneumonia. He has had previous history of infection with MRSA, as well as Escherichia coli ESBL positive. Patient currently is on the vent, and has no meaningful interaction. He is on the vent, and looks comfortable. His WBC is down to normal. His blood pressure is hemodynamically stable. Infectious disease consultation has been requested to assist in antibiotic management of this patient with aspiration pneumonia, and known history of MDRO infections. Notes reviewed Temps ok Looks comofrtable on T-piece BP ok, not on pressors No new (+) BC Nothing new on C/S Has multiple thrombus in both UE Antibiotics Cefepime IV Past Medical History Reviewed Allergies: Coded Allergies: haloperidol (Unverified Adverse Reaction, Severe, Seizures, 02/21/17) Objective . Vital Signs Date Time Temp Pulse Resp B/P (MAP) Pulse Ox O2 Delivery O2 Flow Rate FiO2 03/05/17 10:00 101 03/05/17 09:11 35 T-piece 6.00 35 03/05/17 08:00 98.9 96 21 138/62 (87) 98 03/05/17 08:00 65 03/05/17 07:00 99 T-Piece 35 03/05/17 06:00 103 03/05/17 04:00 82 03/05/17 04:00 99.5 82 19 118/58 (78) 98 03/05/17 03:19 100 T-piece 6.00 40 03/05/17 02:00 77 03/05/17 00:00 86 03/05/17 00:00 99.1 86 17 120/58 (78) 99 03/04/17 22:00 77 03/04/17 20:00 98.2 105 16 140/62 (88) 99 03/04/17 20:00 104 03/04/17 19:00 98 T-Piece 03/04/17 18:00 92 03/04/17 17:25 12 03/04/17 16:00 35 03/04/17 16:00 98.5 96 14 117/67 (84) 98 03/04/17 16:00 99 03/04/17 15:38 100 T-piece 35 03/04/17 14:00 70 . Laboratory Tests Test 03/04/17 03:42 03/05/17 04:09 White Blood Count 5.4 TH/MM3 5.6 TH/MM3 Red Blood Count 4.52 MIL/MM3 4.74 MIL/MM3 Hemoglobin 13.9 GM/DL 15.0 GM/DL Hematocrit 41.9 % 44.3 % Mean Corpuscular Volume 92.7 FL 93.4 FL Mean Corpuscular Hemoglobin 30.9 PG 31.6 PG Mean Corpuscular Hemoglobin Concent 33.3 % 33.8 % Red Cell Distribution Width 13.4 % 13.6 % Platelet Count 192 TH/MM3 177 TH/MM3 Mean Platelet Volume 10.8 FL 11.5 FL Laboratory Tests Test 03/04/17 03:42 03/05/17 04:09 Blood Urea Nitrogen 18 MG/DL 27 MG/DL Creatinine 1.22 MG/DL 1.26 MG/DL Random Glucose 120 MG/DL 118 MG/DL Calcium Level 9.1 MG/DL 9.2 MG/DL Sodium Level 146 MEQ/L 143 MEQ/L Potassium Level 3.7 MEQ/L 3.7 MEQ/L Chloride Level 108 MEQ/L 106 MEQ/L Carbon Dioxide Level 29.4 MEQ/L 30.0 MEQ/L Anion Gap 9 MEQ/L 7 MEQ/L Estimat Glomerular Filtration Rate 85 ML/MIN 81 ML/MIN Imaging Upper Extremity Ultrasound 03/01/17 0000 Signed Impressions: Service Date/Time: Wednesday, March 01, 2017 20:17 - CONCLUSION: Occlusive thrombus within the cephalic veins bilaterally and the right basilic vein as well as nonocclusive thrombus within the right brachial and left basilic veins. Peter Nolan MD Head CT 03/01/17 0000 Signed Impressions: Service Date/Time: Wednesday, March 01, 2017 11:29 - CONCLUSION: Noncontrast CT findings are typical of a severe, diffuse anoxic cerebral event, probably subacute. No bleed. No midline shift. Santo Fisher MD Chest X-Ray 02/27/17 0600 Signed Impressions: Service Date/Time: February 05:02 - CONCLUSION: 1. Right basilar airspace disease similar to February 26. No new findings. Stephan Rich MD Renal Ultrasound 02/26/17 0000 Signed Impressions: Service Date/Time: Sunday, February 26, 2017 23:26 - CONCLUSION: 1. Right kidney is enlarged. No hydronephrosis identified. No acute findings. Stephan Rich MD Tube Change 02/25/17 0000 Signed Impressions: Service Date/Time: Saturday, February 25, 2017 10:57 - CONCLUSION: Uncomplicated gastrojejunostomy tube exchange as above. Beny Whalen MD Sinuses CT 02/21/17 0000 Signed Impressions: Service Date/Time: Tuesday, February 21, 2017 22:44 - CONCLUSION: 1. No evidence for acute sinusitis. Mucosal thickening right maxillary sinus. Stephan Rich MD Abdomen/Pelvis CT 02/21/17 0000 Signed Impressions: Service Date/Time: Tuesday, February 21, 2017 22:47 - CONCLUSION: 1. Basilar dependent lung consolidation with air bronchograms. Differential diagnosis includes pneumonia and aspiration. 2. Feeding gastrojejunostomy present. No bowel dilatation or evidence for obstruction. Mild constipation. Stephan Rich MD Last Impressions Chest X-Ray 02/23/17 0600 Signed Impressions: Service Date/Time: Thursday, February 23, 2017 04:16 - CONCLUSION: 1. Marked rightward rotation of the patient. 2. Stable minimal bibasilar airspace disease , left greater than right. 3. No significant change from prior Beny Whalen MD Sinuses CT 02/21/17 0000 Signed Impressions: Service Date/Time: Tuesday, February 21, 2017 22:44 - CONCLUSION: 1. No evidence for acute sinusitis. Mucosal thickening right maxillary sinus. Stephan Rich MD Abdomen/Pelvis CT 02/21/17 0000 Signed Impressions: Service Date/Time: Tuesday, February 21, 2017 22:47 - CONCLUSION: 1. Basilar dependent lung consolidation with air bronchograms. Differential diagnosis includes pneumonia and aspiration. 2. Feeding gastrojejunostomy present. No bowel dilatation or evidence for obstruction. Mild constipation. Stephan Rich MD Physical Exam GENERAL: no interaction, looks comfortable on T-piece SKIN: Warm and dry. HEAD: Atraumatic. Normocephalic. No temporal wasting, or tenderness. EYES: [place] conjunctiva. No petechia or hemorrhage. Pupils equal, round and reactive to light. No scleral icterus. No injection or drainage. EARS, NOSE AND THROAT: Nose without bleeding or purulent nasal discharge. A lot of oral secretions NECK: Tracheostomy site looks ok CARDIOVASCULAR: Regular rate and rhythm. No murmurs, rubs or gallops heard RESPIRATORY: Coarse BS bilaterally, decreased at bases ABDOMEN: Soft, nondistended. Bowel sounds present and normoactive. No reaction to palpation. G/J tube site ok EXTREMITIES: No clubbing, cyanosis, or edema. No joint effusion. HIs UE are less spastic. Well perfused and warm. NEUROLOGICAL: Unresponsive PSYCHIATRIC: Unable to assess LINE: No evidence of infection : [place] in place, urine looks clear Assessment & Plan Remarks IMPRESSION Sepsis on admission, due to PNA - sputum with Pseudomonas Viridans Strep bacteremia, source ? midline present on admission Line related BSI (not a central line, and was present on admission) - echo ok Aspiration PNA, has had N/V x 1 week Chronic vegetative state due to anoxic brain injury Hx MRSA and E coli ESBL (+) infections Renal insufficiency RECOMMENDATION Continue Cefepime - should have coverage on Viridans Strep and PSAE. - put end date on [employer] Monitor temps Monitor progress Clinically seems stable from ID standpoint Michelle Reynolds MD Mar 05, 2017 12:32
--- NOTE | 2017-03-05 16:43 | HHI.PR ---
Subjective Remarks alert OFF the ventilator no further hemoptysis Objective Vital Signs Date Time Temp Pulse Resp B/P (MAP) Pulse Ox O2 Delivery O2 Flow Rate FiO2 03/05/17 16:00 98 03/05/17 16:00 99.4 98 19 136/63 (87) 99 03/05/17 14:00 96 03/05/17 12:00 99.2 91 21 164/71 (102) 98 03/05/17 12:00 91 03/05/17 10:00 101 03/05/17 09:11 35 T-piece 6.00 35 03/05/17 08:00 98.9 96 21 138/62 (87) 98 03/05/17 08:00 65 03/05/17 07:00 99 T-Piece 35 03/05/17 06:00 103 03/05/17 04:00 82 03/05/17 04:00 99.5 82 19 118/58 (78) 98 03/05/17 03:19 100 T-piece 6.00 40 03/05/17 02:00 77 03/05/17 00:00 86 03/05/17 00:00 99.1 86 17 120/58 (78) 99 03/04/17 22:00 77 03/04/17 20:00 98.2 105 16 140/62 (88) 99 03/04/17 20:00 104 03/04/17 19:00 98 T-Piece 03/04/17 18:00 92 03/04/17 17:25 12 I/O 03/04/17 03/04/17 03/04/17 03/05/17 03/05/17 03/05/17 06:59 14:59 22:59 06:59 14:59 22:59 Intake Total 812 ml 100 ml 1006 ml 1223 ml Output Total 850 ml 1800 ml 1000 ml Balance -38 ml 100 ml -794 ml 223 ml IV Total 140 ml 100 ml 200 ml Tube Feeding 272 ml 516 ml 623 ml Other 400 ml 490 ml 400 ml Output Urine Total 850 ml 1800 ml 1000 ml Stool Total 0 ml # Voids 1 # Bowel Movements 0 0 Result Diagram: 03/05/1740803/05/17408 Objective Remarks GENERAL: SKIN: Warm and dry. HEAD: Atraumatic. Normocephalic. EYES: Pupils equal and round. No scleral icterus. No injection or drainage. ENT: No nasal bleeding or discharge. Mucous membranes pink and moist. NECK: Trachea midline. No JVD., tracheostomy in place CARDIOVASCULAR: Regular rate and rhythm. RESPIRATORY: No accessory muscle use. Clear to auscultation. Breath sounds equal bilaterally. GASTROINTESTINAL: Abdomen soft, non-tender, nondistended. Hepatic and splenic margins not palpable. MUSCULOSKELETAL: Extremities without clubbing, cyanosis, or edema. No obvious deformities. NEUROLOGICAL: Awake and alert. No obvious cranial nerve deficits. Motor grossly within normal limits. Five out of 5 muscle strength in the arms and legs. Normal speech. PSYCHIATRIC: Appropriate mood and affect; insight and judgment normal. Assessment and Plan Assessment and Plan respiratory failue encephalopathy s/p tracheostomy sepsis hemoptysis , resolved plan O2 NEEDED pulmonary toilet Justin Anderson MD Mar 05, 2017 16:43
[2017-03-05] MEDS: hydrALAZINE HCL 20 MG/ML VIAL IV PUSH PRN (23:46)
[2017-03-06] VITALS (16 sets, daily range): BP systolic 96–172; BP diastolic 52–72; PULSE 74–132; RESP 14–27; TEMP 98.5–99.9; O2SAT 100
[2017-03-06] MEDS: HYOSCYAMINE 0.125 MG TAB PO SCH ×6 (01:00→21:26)
[2017-03-06] MEDS: FUROSEMIDE 40 MG/4 ML VIAL IV PUSH SCH ×3 (02:03→17:33)
[2017-03-06] MEDS: oxyCODONE/ACETAMINOPHEN 5 MG/325 MG TAB PO PRN (02:03)
[2017-03-06] MEDS: CEFEPIME INJ 2,000 MG in SODIUM CHLORIDE 0.9% INJ 100 ML IV SCH ×2 (02:04→13:51)
[2017-03-06] MEDS ORDERED: LORazepam 2 MG/ML VIAL ONE (02:28)
[2017-03-06] MEDS ORDERED: METOPROLOL TARTRATE 5 MG/5 ML VIAL ONE (02:28)
[2017-03-06] MEDS ORDERED: METOPROLOL TARTRATE 5 MG/5 ML VIAL IV PUSH ONE ×2 (03:15→14:45)
[2017-03-06] MEDS ORDERED: LORazepam 2 MG/ML VIAL IV ONE (03:15)
[2017-03-06] MEDS: CHLORHEXIDINE GLUCONATE 2 % 1 PACK (2 CLOTHS) TOP SCH (04:00)
[2017-03-06 04:51] LABS: HEMATOCRIT 44.9 % (39.0-51.0); MEAN CELL VOLUME 94.1 FL (80.0-100.0); MEAN CORPUSCULAR HEMOGLOBIN 31.4 PG (27.0-34.0); MEAN CORPUSCULAR HGB CONC 33.3 % (32.0-36.0); PLATELET COUNT 253 TH/MM3 (150-450); RED BLOOD COUNT 4.77 MIL/MM3 (4.50-5.90); RED CELL DISTRIBUTION WIDTH 13.3 % (11.6-17.2); REVIEW FLAG FINAL; WHITE BLOOD COUNT 6.4 TH/MM3 (4.0-11.0)
[2017-03-06 04:57] LABS: BICARBONATE 28.9 MEQ/L (21.0-32.0); POTASSIUM 3.6 MEQ/L (3.5-5.1)
[2017-03-06] MEDS: FREE WATER G-TUBE SCH ×4 (06:00→17:34)
[2017-03-06] MEDS: hydrALAZINE HCL 50 MG TAB PO SCH ×3 (06:00→22:00)
[2017-03-06] MEDS: INSULIN ASPART SUPPLEMENTAL SCALE SQ SCH ×4 (06:00→17:46)
[2017-03-06] MEDS: METOCLOPRAMIDE HCL 10 MG/2 ML VIAL IV PUSH SCH ×3 (06:03→21:25)
--- NOTE | 2017-03-06 07:14 | HHI.CCPN ---
Subjective Remarks/Hospital Course 31-year-old male. Resident of [facility] or rehabilitation. Past medical history includes anoxic brain injury 03/21 Temovate due to Haldol administration, recurrent aspiration pneumoniaMDRO positive MRSA positive ESBL positive Escherichia coli in past, hypertension, dyslipidemia, history of pseudocyst/necrotizing, diabetes mellitus presents with a one-week history of nausea/vomiting according to his mother at this nursing facility. He was also recently diagnosed with a fever started on amoxicillin Upon presentation to the ED, patient was noted of temperature 100.2. Leukocytosis 14.5 and elevated transaminases. Lactic acid 4.1. Received 3 L normal saline. Start empirically on piperacillin/tazobactam and vancomycin. Pancultured. Chest x-ray revealed no acute findings. CT abdomen/pelvis and amylase lipase all pending. Upon presentation the floor, patient was tachycardic in acute respiratory distress. Tracheostomy was exchanged for an 8.0-6.0 Shiley. Patient is currently sedated on the ventilator on Midazolam And fentanyl drips. 02/22: Asymptomatically Bradycardic overnight. CT abdomen/pelvis revealed air bronchograms lower lobes bilateral lungs otherwise unremarkable. Will initiate tube feeding today. Potassium will be replaced. 02/23: Became tachycardic overnight with movement. We'll attempt PSV trial today. Off all continuous sedation and analgesia. 02/24: Remains intubated, moves all extremities. tolerating CPAP 06/10. CXR mild basilar infiltrated 02/25: Remains off vasopressor. Tolerated TP 3-4 hours yesterday. Tmax 100.8. Neuro at baseline. G/J tube exchanged. 02/26: Tolerated TP up to 10 hour yesterday. Bloody trach secretions has almost resolved. Chest x-ray is unchanged. Fever trending down 02/27: Hypertensive. Vomited X 2, hold TFs, add reglan. Persistent minimal bloody secretions. 02/28: Failed SBT again today. Pseudomonas persists in sputum. 03/01 Remains hypertensive >180 despite prns. Anisocoria with L pupil 7 mm and sluggishly reactive, has been documented previously by nursing 02/21 and forward. Placed on CPAP 04/10. Tube feeds at 25 mL/hr, being slowly advanced. Having BMs 03/02 U/s from E with occlusive thrombus bilateral cephalic's, right basilic, nonocclusive thrombus of right brachial and left basilic. Will discontinue Midline from outside facility. U/s guided PIV for completion of abx course. Was net even yesterday with diuretics and creatinine now downtrended to 1.23 Tolerating CPAP 03/03: no clinical changes. tolerating CPAP. weaning. 03/04: Tolerating T-piece today. Severe contractures remains problematic. 03/05: Off ventilator. Tolerates T-piece. Needs ongoing PT/OT. 03/06: Off vent for over 2 days. Placement now the main issue. Objective Vital Signs Date Time Temp Pulse Resp B/P (MAP) Pulse Ox O2 Delivery O2 Flow Rate FiO2 03/06/17 06:00 100 03/06/17 04:13 100 T-piece 6.00 35 03/06/17 04:00 99.2 24 96/52 (67) Intake and Output 03/06/17 03/06/17 03/07/17 08:00 16:00 00:00 Intake Total 1139 ml Output Total 950 ml Balance 189 ml Result Diagram: 03/06/17 0408 03/06/17 0408 Imaging Last Impressions Chest X-Ray 02/22/17 0000 Signed Impressions: Service Date/Time: Wednesday, February 22, 2017 03:56 - CONCLUSION: 1. Mild basilar airspace disease. No significant effusion. No pneumothorax. Stephan Rich MD Sinuses CT 02/21/17 0000 Signed Impressions: Service Date/Time: Tuesday, February 21, 2017 22:44 - CONCLUSION: 1. No evidence for acute sinusitis. Mucosal thickening right maxillary sinus. Stephan Rich MD Abdomen/Pelvis CT 02/21/17 0000 Signed Impressions: Service Date/Time: Tuesday, February 21, 2017 22:47 - CONCLUSION: 1. Basilar dependent lung consolidation with air bronchograms. Differential diagnosis includes pneumonia and aspiration. 2. Feeding gastrojejunostomy present. No bowel dilatation or evidence for obstruction. Mild constipation. Stephan Rich MD Objective Remarks GENERAL: 31-year-old -[place] male, chronically ill. SKIN: Mild diaphoresis No rash. HEAD: Atraumatic. Normocephalic. EYES: Right pupil 5 mm and sluggishly reactive, L pupil 7 mm questionably reactive. No conjunctival icterus. No injection or drainage. ENT: No nasal bleeding or discharge. Mucous membranes pink and moist. NECK: Trachea midline. No JVD. #[address] Site clean. CARDIOVASCULAR: NL S1S2 rate in 60s. No JVD. RESPIRATORY: equal chest rise. unlabored. on trach collar GASTROINTESTINAL: Abdomen soft, non-tender, nondistended. GJ tube in left upper quadrant is clean dry and intact : condom cath in place MUSCULOSKELETAL: Contracted joints. NEUROLOGICAL: Eyes are open spontaneously, no tracking, no response. Bilateral extremities are in flexion, contracted. Bilateral lower extremities with rigidity, foot drop bilaterally. A/P Assessment and Plan Neuro/Psych: Anisocoria - appears is chronic. History of anoxic brain injury Chronic muscle relaxant use Seizure disorder NOS Continue levetiracetam 1000 mg by PEG tube twice a day for seizure disorder, Seizure precautions As needed lorazepam 0.5-1 mg every 2 hours by PEG tube for agitation Baclofen 20 3 times a day Acetaminophen for fever/pain Previously on oxycodone/acetaminophen 5/325 one tablet every 4 hours when necessary pain. Resumed 02/22 CT brain - c/w sever anoxic injury with no acute findings. Sinus scan from 02/21 with atrophy but no acute abnormality. CV: Sinus bradycardia History of hypertension History dyslipidemia Lactic acidosis KVO IVF as per below Hydralazine 50 every 8 hours. Norvasc 10 mg daily Hydralazine 20 mg IV every 3 hours when necessary systolic blood pressure greater than 160 Chronic medication of metoprolol 25 twice a day restarted. Resp: Acute respiratory failure secondary to aspiration pneumonia Status post tracheostomy exchange TP up to 10 hours 02/25. Subsequently had not tolerated CPAP but 03/02 seems to be improving. Continue daily CPAP and transition to Tpiece trials. Ventilator bundle. Albuterol/ipratropium every 6 hours aerosols with albuterol nebulizers every 2 hours Chest x-ray 02/22 revealed lower lobe infiltrates bilaterally. CXR 02/25 essentially clear #8 Shiley percutaneous tracheostomy downsized #6 Shiley on 02/21 due to respiratory distress. (Per Dr. Mantilla, unable to pass new 8.0 Shiley and 6.0 was placed) GI: Nausea/vomiting Elevated transaminases History pancreatitis/pseudocyst Chronic protein energy malnutrition Follow-up on CT abdomen/pelvis revealed air bronchograms bilateral. Gastric tube in place. No signs of ileus or obstruction. Tube feeding with vital 1.5 goal 50 cc an hour per nutrition recommendations from 02/28 IR exchanged G/J Tube 02/25 Pantoprazole for GI prophylaxis. Docusate sodium/senna twice a day for bowel regimen. Having bowel movements. FEN/RENAL: Hypernatremia Hypophosphatemia (resolved) Hypokalemia Pseudohyperkalemia 03/01 (hemolysis) Acute kidney injury. Nonoliguric. FeNa 3% c/w ATN. Urine eosinophils negative 02/27 Creatinine downtrending. Lasix 40 mgIV q8 hours, KCl 25 q1hrcos x3 doses Discontinued 0.9 NaC on 03/01. On free water flushes 200 every 6. Replace electrolytes per ICU electrolyte replacement protocol. Condom cath. Renal ultrasound 02/26 - R kidney enlarged. No hydronephrosis. Endo: Diabetes mellitus Sliding-scale insulin with NovoLog with Accu-Cheks to maintain euglycemia/low regimen every 6 hours Heme: Normocytic anemia Thrombocytopenia Chronic Apixaban Multiple superficial and deep upper extremity thromboses occlusive thrombus bilateral cephalic's, right basilic, nonocclusive thrombus of right brachial and left basilic on u/s 03/01 Apixaban 5 mg bid per tube. ID: Pseudomonas pneumonia Strep viridans bacteremia - Present on admission, midline catheter associated. History ESBL positive Escherichia coli MDRO positive History MRSA Currently on Cefepime 02/27 - , tobramycin nebs 02/25-02/[address] Reynolds Blood cultures 2 02/21 strep viridans, sputum culture Pseudomonas. Repeat blood cultures 02/23 neg to date. Midline catheter placed at custodial ~1.5 weeks prior to admission per mother. H/o dvt LUE in past (~ 1 year ago) so performed u/s extremities to eval for DVT prior to possible new u/s guided line. PIVs, midline discontinued UA, Legionella pneumococcal urinary antigen, influenza all negative/no growth 2-D echocardiogram ordered rule out endocarditis-neg for veg MSK: Muscle contractures PT evaluate and treat Access - Utilize peripheral IV. Prophylaxis - GI - pantoprazole 40 mg IV daily for stress ulcer prophylaxis. - DVT - SCD/Apixaban 5 mg twice a day ACCESS: Patient with severe anoxic injury whose overall long-term prognosis is quite poor. Now with carbapenem resistant Pseudomonas pneumonia. Mother updated by telephone 03/01 and 03/02 and multiple questions answered. She confirms she desires FULL CODE. Overall impression: Will require PT/OT and long-tern care. [facility] has turned him down. Franklin Bahena MD Mar 06, 2017 07:14
[2017-03-06] MEDS: CHLORHEXIDINE 0.12% (ORAL KIT) 15 ML CUP MT SCH ×2 (08:00→20:00)
[2017-03-06] MEDS: PANTOPRAZOLE SODIUM 40 MG VIAL IV SCH (08:55)
[2017-03-06] MEDS: BACLOFEN 20 MG TAB G-TUBE SCH ×3 (08:57→17:33)
[2017-03-06] MEDS: METOPROLOL TARTRATE 25 MG TAB PO SCH ×2 (08:57→21:25)
[2017-03-06] MEDS: APIXABAN 5 MG TABLET G-TUBE SCH ×2 (08:57→21:40)
[2017-03-06] MEDS: DOCUSATE SODIUM 50 MG/SENNA 8.6 MG TAB PO SCH ×2 (08:57→21:25)
[2017-03-06] MEDS: levETIRAcetam 500 MG/5 ML UDC G-TUBE SCH ×2 (08:57→21:27)
[2017-03-06] MEDS: SODIUM CHLORIDE 0.9% FLUSH 10 ML FLUSH IV FLUSH SCH ×2 (08:58→21:00)
[2017-03-06] MEDS: LORATADINE 10 MG TAB G-TUBE SCH (08:58)
[2017-03-06] MEDS: ARTIFICIAL TEARS OPTH SOLN 15 ML BTL EACH EYE SCH ×3 (09:00→17:26)
--- NOTE | 2017-03-06 13:27 | HHI.IDPN ---
Subjective Subjective Remarks Patient is a 31-year-old male, who is in chronic vegetative state, due to anoxic brain injury, as a chronic trach, with sides in long-term facility at [place], brought into the hospital for further evaluation of fever. Patient apparently has been having problem with nausea and vomiting for about a week, and he also started having problem with increased tracheal secretions. More recently he is had a fever, and patient was brought into the hospital for further evaluation and treatment. Patient has had previous hospitalization for pneumonia. On presentation, he was found to have leukocytosis. His temperature was up to 100.2, lactic acid elevated at 4.1. His chest x-ray was negative. CT of the abdomen and pelvis though showed evidence of basilar consolidation with air bronchograms suggestive of pneumonia. He has had previous history of infection with MRSA, as well as Escherichia coli ESBL positive. Patient currently is on the vent, and has no meaningful interaction. He is on the vent, and looks comfortable. His WBC is down to normal. His blood pressure is hemodynamically stable. Infectious disease consultation has been requested to assist in antibiotic management of this patient with aspiration pneumonia, and known history of MDRO infections. Notes reviewed Temps ok Looks comfortable on T-piece BP ok, not on pressors No new (+) BC Nothing new on C/S Has multiple thrombus in both UE Has transfer out of ICU Antibiotics Cefepime IV Past Medical History Reviewed Allergies: Coded Allergies: haloperidol (Unverified Adverse Reaction, Severe, Seizures, 02/21/17) Objective . Vital Signs Date Time Temp Pulse Resp B/P (MAP) Pulse Ox O2 Delivery O2 Flow Rate FiO2 03/06/17 12:00 99.0 86 15 123/59 (80) 100 03/06/17 12:00 86 03/06/17 10:00 94 03/06/17 09:07 100 T-piece 6.00 35 03/06/17 08:00 100 03/06/17 08:00 98.5 88 18 115/60 (78) 100 03/06/17 07:00 100 T-Piece 35 03/06/17 06:00 100 03/06/17 04:13 100 T-piece 6.00 35 03/06/17 04:00 99.2 88 24 96/52 (67) 100 03/06/17 04:00 88 03/06/17 03:03 19 03/06/17 02:00 132 03/06/17 01:02 100 T-piece 35 03/06/17 00:00 84 03/06/17 00:00 99.0 84 27 172/72 (105) 100 03/05/17 22:00 100 03/05/17 21:15 100 T-piece 35.00 03/05/17 20:00 98 03/05/17 20:00 98.8 98 21 160/72 (101) 100 03/05/17 19:00 100 T-Piece 35 03/05/17 18:00 114 03/05/17 16:00 98 03/05/17 16:00 99.4 98 19 136/63 (87) 99 03/05/17 14:00 96 . Laboratory Tests Test 03/05/17 04:09 03/06/17 04:08 White Blood Count 5.6 TH/MM3 6.4 TH/MM3 Red Blood Count 4.74 MIL/MM3 4.77 MIL/MM3 Hemoglobin 15.0 GM/DL 15.0 GM/DL Hematocrit 44.3 % 44.9 % Mean Corpuscular Volume 93.4 FL 94.1 FL Mean Corpuscular Hemoglobin 31.6 PG 31.4 PG Mean Corpuscular Hemoglobin Concent 33.8 % 33.3 % Red Cell Distribution Width 13.6 % 13.3 % Platelet Count 177 TH/MM3 253 TH/MM3 Mean Platelet Volume 11.5 FL 11.0 FL Laboratory Tests Test 03/05/17 04:09 03/06/17 04:08 Blood Urea Nitrogen 27 MG/DL 32 MG/DL Creatinine 1.26 MG/DL 1.26 MG/DL Random Glucose 118 MG/DL 127 MG/DL Calcium Level 9.2 MG/DL 9.5 MG/DL Sodium Level 143 MEQ/L 143 MEQ/L Potassium Level 3.7 MEQ/L 3.6 MEQ/L Chloride Level 106 MEQ/L 103 MEQ/L Carbon Dioxide Level 30.0 MEQ/L 28.9 MEQ/L Anion Gap 7 MEQ/L 11 MEQ/L Estimat Glomerular Filtration Rate 81 ML/MIN 81 ML/MIN Imaging Upper Extremity Ultrasound 03/01/17 0000 Signed Impressions: Service Date/Time: Wednesday, March 01, 2017 20:17 - CONCLUSION: Occlusive thrombus within the cephalic veins bilaterally and the right basilic vein as well as nonocclusive thrombus within the right brachial and left basilic veins. Peter Nolan MD Head CT 03/01/17 0000 Signed Impressions: Service Date/Time: Wednesday, March 01, 2017 11:29 - CONCLUSION: Noncontrast CT findings are typical of a severe, diffuse anoxic cerebral event, probably subacute. No bleed. No midline shift. Santo Fisher MD Chest X-Ray 02/27/17 0600 Signed Impressions: Service Date/Time: February 05:02 - CONCLUSION: 1. Right basilar airspace disease similar to February 26. No new findings. Stephan Rich MD Renal Ultrasound 02/26/17 0000 Signed Impressions: Service Date/Time: Sunday, February 26, 2017 23:26 - CONCLUSION: 1. Right kidney is enlarged. No hydronephrosis identified. No acute findings. Stephan Rich MD Tube Change 02/25/17 0000 Signed Impressions: Service Date/Time: Saturday, February 25, 2017 10:57 - CONCLUSION: Uncomplicated gastrojejunostomy tube exchange as above. Beny Whalen MD Sinuses CT 02/21/17 0000 Signed Impressions: Service Date/Time: Tuesday, February 21, 2017 22:44 - CONCLUSION: 1. No evidence for acute sinusitis. Mucosal thickening right maxillary sinus. Stephan Rich MD Abdomen/Pelvis CT 02/21/17 0000 Signed Impressions: Service Date/Time: Tuesday, February 21, 2017 22:47 - CONCLUSION: 1. Basilar dependent lung consolidation with air bronchograms. Differential diagnosis includes pneumonia and aspiration. 2. Feeding gastrojejunostomy present. No bowel dilatation or evidence for obstruction. Mild constipation. Stephan Rich MD Last Impressions Chest X-Ray 02/23/17 0600 Signed Impressions: Service Date/Time: Thursday, February 23, 2017 04:16 - CONCLUSION: 1. Marked rightward rotation of the patient. 2. Stable minimal bibasilar airspace disease , left greater than right. 3. No significant change from prior Beny Whalen MD Sinuses CT 02/21/17 0000 Signed Impressions: Service Date/Time: Tuesday, February 21, 2017 22:44 - CONCLUSION: 1. No evidence for acute sinusitis. Mucosal thickening right maxillary sinus. Stephan Rich MD Abdomen/Pelvis CT 02/21/17 0000 Signed Impressions: Service Date/Time: Tuesday, February 21, 2017 22:47 - CONCLUSION: 1. Basilar dependent lung consolidation with air bronchograms. Differential diagnosis includes pneumonia and aspiration. 2. Feeding gastrojejunostomy present. No bowel dilatation or evidence for obstruction. Mild constipation. Stephan Rich MD Physical Exam GENERAL: no interaction, looks comfortable on T-piece SKIN: Warm and dry. HEAD: Atraumatic. Normocephalic. No temporal wasting, or tenderness. EYES: [place] conjunctiva. No petechia or hemorrhage. Pupils equal, round and reactive to light. No scleral icterus. No injection or drainage. EARS, NOSE AND THROAT: Nose without bleeding or purulent nasal discharge. A lot of oral secretions NECK: Tracheostomy site looks ok CARDIOVASCULAR: Regular rate and rhythm. No murmurs, rubs or gallops heard RESPIRATORY: Coarse BS bilaterally, decreased at bases ABDOMEN: Soft, nondistended. Bowel sounds present and normoactive. No reaction to palpation. G/J tube site ok EXTREMITIES: No clubbing, cyanosis, or edema. No joint effusion. HIs UE are less spastic. Well perfused and warm. NEUROLOGICAL: Unresponsive PSYCHIATRIC: Unable to assess LINE: No evidence of infection : [place] in place, urine looks clear Assessment & Plan Remarks IMPRESSION Sepsis on admission, due to PNA - sputum with Pseudomonas Viridans Strep bacteremia, source ? midline present on admission Line related BSI (not a central line, and was present on admission) - echo ok Aspiration PNA, has had N/V x 1 week Chronic vegetative state due to anoxic brain injury Hx MRSA and E coli ESBL (+) infections Renal insufficiency RECOMMENDATION Continue Cefepime - to finish 03/08 Monitor temps Monitor progress Clinically seems stable from ID standpoint For transfer out of ICU Michelle Reynolds MD Mar 06, 2017 13:27
--- NOTE | 2017-03-06 14:40 | HHI.PR ---
Subjective Remarks alert OFF the ventilator NO DISTRESS Objective Vital Signs Date Time Temp Pulse Resp B/P (MAP) Pulse Ox O2 Delivery O2 Flow Rate FiO2 03/06/17 14:00 78 03/06/17 12:00 99.0 86 15 123/59 (80) 100 03/06/17 12:00 86 03/06/17 10:00 94 03/06/17 09:07 100 T-piece 6.00 35 03/06/17 08:00 100 03/06/17 08:00 98.5 88 18 115/60 (78) 100 03/06/17 07:00 100 T-Piece 35 03/06/17 06:00 100 03/06/17 04:13 100 T-piece 6.00 35 03/06/17 04:00 99.2 88 24 96/52 (67) 100 03/06/17 04:00 88 03/06/17 03:03 19 03/06/17 02:00 132 03/06/17 01:02 100 T-piece 35 03/06/17 00:00 84 03/06/17 00:00 99.0 84 27 172/72 (105) 100 03/05/17 22:00 100 03/05/17 21:15 100 T-piece 35.00 03/05/17 20:00 98 03/05/17 20:00 98.8 98 21 160/72 (101) 100 03/05/17 19:00 100 T-Piece 35 03/05/17 18:00 114 03/05/17 16:00 98 03/05/17 16:00 99.4 98 19 136/63 (87) 99 I/O 03/05/17 03/05/17 03/05/17 03/06/17 03/06/17 03/06/17 07:00 15:00 23:00 07:00 15:00 23:00 Intake Total 1223 ml 1107 ml 1139 ml Output Total 1000 ml 800 ml 950 ml Balance 223 ml 307 ml 189 ml Intake Oral 0 ml IV Total 200 ml 160 ml 160 ml Tube Feeding 623 ml 547 ml 579 ml Other 400 ml 400 ml 400 ml Output Urine Total 1000 ml 800 ml 950 ml # Bowel Movements 0 0 0 Result Diagram: 03/06/1740703/06/17407 Objective Remarks GENERAL: SKIN: Warm and dry. HEAD: Atraumatic. Normocephalic. EYES: Pupils equal and round. No scleral icterus. No injection or drainage. ENT: No nasal bleeding or discharge. Mucous membranes pink and moist. NECK: Trachea midline. No JVD., tracheostomy in place CARDIOVASCULAR: Regular rate and rhythm. RESPIRATORY: No accessory muscle use. Clear to auscultation. Breath sounds equal bilaterally. GASTROINTESTINAL: Abdomen soft, non-tender, nondistended. Hepatic and splenic margins not palpable. MUSCULOSKELETAL: Extremities without clubbing, cyanosis, or edema. No obvious deformities. NEUROLOGICAL: Awake and alert. No obvious cranial nerve deficits. Motor grossly within normal limits. Five out of 5 muscle strength in the arms and legs. Normal speech. PSYCHIATRIC: Appropriate mood and affect; insight and judgment normal. Assessment and Plan Assessment and Plan respiratory failue encephalopathy s/p tracheostomy sepsis hemoptysis , resolved plan O2 NEEDED pulmonary toilet Justin Anderson MD Mar 06, 2017 14:40
[2017-03-07] VITALS (15 sets, daily range): BP systolic 91–139; BP diastolic 50–73; PULSE 56–120; RESP 6–19; TEMP 98.8–99.1; O2SAT 98–100
[2017-03-07] MEDS: HYOSCYAMINE 0.125 MG TAB PO SCH ×6 (02:24→21:11)
[2017-03-07] MEDS: FUROSEMIDE 40 MG/4 ML VIAL IV PUSH SCH ×3 (02:26→17:40)
[2017-03-07] MEDS: CEFEPIME INJ 2,000 MG in SODIUM CHLORIDE 0.9% INJ 100 ML IV SCH ×2 (02:26→14:08)
[2017-03-07] MEDS: CHLORHEXIDINE GLUCONATE 2 % 1 PACK (2 CLOTHS) TOP SCH (04:00)
[2017-03-07 05:25] LABS: HEMATOCRIT 44.2 % (39.0-51.0); MEAN CELL VOLUME 94.7 FL (80.0-100.0); MEAN CORPUSCULAR HGB CONC 32.8 % (32.0-36.0); PLATELET COUNT 223 TH/MM3 (150-450); RED BLOOD COUNT 4.67 MIL/MM3 (4.50-5.90); RED CELL DISTRIBUTION WIDTH 13.4 % (11.6-17.2); REVIEW FLAG FINAL; WHITE BLOOD COUNT 6.6 TH/MM3 (4.0-11.0)
[2017-03-07 05:47] LABS: BICARBONATE 27.5 MEQ/L (21.0-32.0); POTASSIUM 3.7 MEQ/L (3.5-5.1)
[2017-03-07] MEDS: FREE WATER G-TUBE SCH ×4 (06:00→17:40)
[2017-03-07] MEDS: INSULIN ASPART SUPPLEMENTAL SCALE SQ SCH ×4 (06:00→18:00)
[2017-03-07] MEDS: hydrALAZINE HCL 50 MG TAB PO SCH ×3 (06:00→22:08)
[2017-03-07] MEDS: METOCLOPRAMIDE HCL 10 MG/2 ML VIAL IV PUSH SCH ×3 (06:11→21:12)
[2017-03-07] MEDS: CHLORHEXIDINE 0.12% (ORAL KIT) 15 ML CUP MT SCH ×2 (08:16→21:11)
[2017-03-07] MEDS: BACLOFEN 20 MG TAB G-TUBE SCH ×3 (08:18→17:39)
[2017-03-07] MEDS: DOCUSATE SODIUM 50 MG/SENNA 8.6 MG TAB PO SCH ×2 (08:18→21:11)
[2017-03-07] MEDS: METOPROLOL TARTRATE 25 MG TAB PO SCH ×2 (08:18→21:11)
[2017-03-07] MEDS: APIXABAN 5 MG TABLET G-TUBE SCH ×2 (08:18→21:12)
[2017-03-07] MEDS: PANTOPRAZOLE SODIUM 40 MG VIAL IV SCH (08:19)
[2017-03-07] MEDS: levETIRAcetam 500 MG/5 ML UDC G-TUBE SCH ×2 (08:19→21:12)
[2017-03-07] MEDS: SODIUM CHLORIDE 0.9% FLUSH 10 ML FLUSH IV FLUSH SCH ×2 (08:19→21:12)
[2017-03-07] MEDS: LORATADINE 10 MG TAB G-TUBE SCH (08:19)
[2017-03-07] MEDS: ARTIFICIAL TEARS OPTH SOLN 15 ML BTL EACH EYE SCH ×3 (08:20→17:40)
--- NOTE | 2017-03-07 08:40 | HHI.PR ---
Subjective Remarks alert OFF the ventilator NO DISTRESS Objective Vital Signs Date Time Temp Pulse Resp B/P (MAP) Pulse Ox O2 Delivery O2 Flow Rate FiO2 03/07/17 08:11 98 T-piece 6.00 28 03/07/17 06:00 84 03/07/17 04:00 62 03/07/17 04:00 99.0 62 15 102/55 (71) 100 03/07/17 02:00 56 03/07/17 00:00 98.8 60 15 105/51 (69) 100 03/07/17 00:00 62 03/06/17 22:00 78 03/06/17 21:35 100 T-piece 5.00 28 03/06/17 20:00 74 03/06/17 20:00 98.9 74 14 108/53 (71) 100 03/06/17 19:00 100 T-Piece 35 03/06/17 18:00 86 03/06/17 16:00 99.9 92 18 139/63 (88) 100 03/06/17 16:00 92 03/06/17 14:00 78 03/06/17 12:00 99.0 86 15 123/59 (80) 100 03/06/17 12:00 86 03/06/17 10:00 94 03/06/17 09:07 100 T-piece 6.00 35 I/O 03/06/17 03/06/17 03/06/17 03/07/17 03/07/17 03/07/17 07:00 15:00 23:00 07:00 15:00 23:00 Intake Total 1139 ml 1064 ml 1115 ml Output Total 950 ml 1150 ml 650 ml Balance 189 ml -86 ml 465 ml Intake Oral 0 ml IV Total 160 ml 157 ml 152 ml Tube Feeding 579 ml 507 ml 563 ml Other 400 ml 400 ml 400 ml Output Urine Total 950 ml 1150 ml 650 ml # Bowel Movements 0 0 0 Result Diagram: 03/07/1742903/07/17429 Objective Remarks GENERAL: SKIN: Warm and dry. HEAD: Atraumatic. Normocephalic. EYES: Pupils equal and round. No scleral icterus. No injection or drainage. ENT: No nasal bleeding or discharge. Mucous membranes pink and moist. NECK: Trachea midline. No JVD., tracheostomy in place CARDIOVASCULAR: Regular rate and rhythm. RESPIRATORY: No accessory muscle use. Clear to auscultation. Breath sounds equal bilaterally. GASTROINTESTINAL: Abdomen soft, non-tender, nondistended. Hepatic and splenic margins not palpable. MUSCULOSKELETAL: Extremities without clubbing, cyanosis, or edema. No obvious deformities. NEUROLOGICAL: Awake and alert. No obvious cranial nerve deficits. Motor grossly within normal limits. Five out of 5 muscle strength in the arms and legs. Normal speech. PSYCHIATRIC: Appropriate mood and affect; insight and judgment normal. Assessment and Plan Assessment and Plan respiratory failue encephalopathy s/p tracheostomy sepsis hemoptysis , resolved plan O2 NEEDED pulmonary toilet Justin Anderson MD Mar 07, 2017 08:40
[2017-03-07] MEDS ORDERED: LORazepam 2 MG/ML VIAL IV ONE (14:45)
[2017-03-07] MEDS ORDERED: POTASSIUM CHLORIDE 25 MEQ EFFERVESCENT TAB PO ONE (15:30)
[2017-03-07] MEDS ORDERED: METOPROLOL TARTRATE 5 MG/5 ML VIAL IV PUSH ONE (15:45)
[2017-03-07] MEDS ORDERED: POTASSIUM CHLORIDE 25 MEQ EFFERVESCENT TAB NG ONE (15:45)
--- NOTE | 2017-03-07 16:35 | HHI.CCPN ---
Subjective Remarks/Hospital Course 31-year-old male. Resident of [facility] or rehabilitation. Past medical history includes anoxic brain injury 03/21 Temovate due to Haldol administration, recurrent aspiration pneumoniaMDRO positive MRSA positive ESBL positive Escherichia coli in past, hypertension, dyslipidemia, history of pseudocyst/necrotizing, diabetes mellitus presents with a one-week history of nausea/vomiting according to his mother at this nursing facility. He was also recently diagnosed with a fever started on amoxicillin Upon presentation to the ED, patient was noted of temperature 100.2. Leukocytosis 14.5 and elevated transaminases. Lactic acid 4.1. Received 3 L normal saline. Start empirically on piperacillin/tazobactam and vancomycin. Pancultured. Chest x-ray revealed no acute findings. CT abdomen/pelvis and amylase lipase all pending. Upon presentation the floor, patient was tachycardic in acute respiratory distress. Tracheostomy was exchanged for an 8.0-6.0 Shiley. Patient is currently sedated on the ventilator on Midazolam And fentanyl drips. 02/22: Asymptomatically Bradycardic overnight. CT abdomen/pelvis revealed air bronchograms lower lobes bilateral lungs otherwise unremarkable. Will initiate tube feeding today. Potassium will be replaced. 02/23: Became tachycardic overnight with movement. We'll attempt PSV trial today. Off all continuous sedation and analgesia. 02/24: Remains intubated, moves all extremities. tolerating CPAP 06/10. CXR mild basilar infiltrated 02/25: Remains off vasopressor. Tolerated TP 3-4 hours yesterday. Tmax 100.8. Neuro at baseline. G/J tube exchanged. 02/26: Tolerated TP up to 10 hour yesterday. Bloody trach secretions has almost resolved. Chest x-ray is unchanged. Fever trending down 02/27: Hypertensive. Vomited X 2, hold TFs, add reglan. Persistent minimal bloody secretions. 02/28: Failed SBT again today. Pseudomonas persists in sputum. 03/01 Remains hypertensive >180 despite prns. Anisocoria with L pupil 7 mm and sluggishly reactive, has been documented previously by nursing 02/21 and forward. Placed on CPAP 04/10. Tube feeds at 25 mL/hr, being slowly advanced. Having BMs 03/02 U/s from E with occlusive thrombus bilateral cephalic's, right basilic, nonocclusive thrombus of right brachial and left basilic. Will discontinue Midline from outside facility. U/s guided PIV for completion of abx course. Was net even yesterday with diuretics and creatinine now downtrended to 1.23 Tolerating CPAP 03/03: no clinical changes. tolerating CPAP. weaning. 03/04: Tolerating T-piece today. Severe contractures remains problematic. 03/05: Off ventilator. Tolerates T-piece. Needs ongoing PT/OT. 03/06: Off vent for over 2 days. Placement now the main issue. 03/07: remains off the vent on t-piece. still awaiting placement. tachycardic today to the 140s- per mom, he gets tachycardic when agitated, ativan iv works best for this per mom. 1mg iv ativan given and 2.5 mg iv lopressor with improvement in hemodynamics. Objective Vital Signs Date Time Temp Pulse Resp B/P (MAP) Pulse Ox O2 Delivery O2 Flow Rate FiO2 03/07/17 14:00 120 03/07/17 12:00 98.9 15 110/55 (73) 100 03/07/17 08:11 T-piece 6.00 28 Intake and Output 03/07/17 03/07/17 03/07/17 07:59 15:59 23:59 Intake Total 1115 ml Output Total 650 ml Balance 465 ml Result Diagram: 03/07/17 0430 03/07/17 0430 Imaging Last Impressions Chest X-Ray 02/22/17 0000 Signed Impressions: Service Date/Time: Wednesday, February 22, 2017 03:56 - CONCLUSION: 1. Mild basilar airspace disease. No significant effusion. No pneumothorax. Stephan Rich MD Sinuses CT 02/21/17 0000 Signed Impressions: Service Date/Time: Tuesday, February 21, 2017 22:44 - CONCLUSION: 1. No evidence for acute sinusitis. Mucosal thickening right maxillary sinus. Stephan Rich MD Abdomen/Pelvis CT 02/21/17 0000 Signed Impressions: Service Date/Time: Tuesday, February 21, 2017 22:47 - CONCLUSION: 1. Basilar dependent lung consolidation with air bronchograms. Differential diagnosis includes pneumonia and aspiration. 2. Feeding gastrojejunostomy present. No bowel dilatation or evidence for obstruction. Mild constipation. Stephan Rich MD Objective Remarks GENERAL: 31-year-old -[place] male, chronically ill. SKIN: Mild diaphoresis No rash. HEAD: Atraumatic. Normocephalic. EYES: Right pupil 5 mm and sluggishly reactive, L pupil 7 mm questionably reactive. No conjunctival icterus. No injection or drainage. ENT: No nasal bleeding or discharge. Mucous membranes pink and moist. NECK: Trachea midline. No JVD. #[address] Site clean. CARDIOVASCULAR: NL S1S2 rate in 140s. No JVD. RESPIRATORY: equal chest rise. unlabored. on trach collar GASTROINTESTINAL: Abdomen soft, non-tender, nondistended. GJ tube in left upper quadrant is clean dry and intact : condom cath in place MUSCULOSKELETAL: Contracted joints. NEUROLOGICAL: Eyes are open spontaneously, no tracking, no response. Bilateral extremities are in flexion, contracted. Bilateral lower extremities with rigidity, foot drop bilaterally. A/P Assessment and Plan Neuro/Psych: Anisocoria - appears is chronic. History of anoxic brain injury Chronic muscle relaxant use Seizure disorder NOS Continue levetiracetam 1000 mg by PEG tube twice a day for seizure disorder, Seizure precautions As needed lorazepam 0.5-1 mg every 2 hours by PEG tube for agitation Baclofen 20 3 times a day Acetaminophen for fever/pain Previously on oxycodone/acetaminophen 5/325 one tablet every 4 hours when necessary pain. Resumed 02/22 CT brain - c/w sever anoxic injury with no acute findings. Sinus scan from 02/21 with atrophy but no acute abnormality. CV: Sinus bradycardia History of hypertension History dyslipidemia Lactic acidosis KVO IVF as per below Hydralazine 50 every 8 hours. Norvasc 10 mg daily Hydralazine 20 mg IV every 3 hours when necessary systolic blood pressure greater than 160 Chronic medication of metoprolol 25 twice a day restarted. Sinus tachycardia- improved with one-time dose ativan and lopressor. likely secondary to agitation. now improved. Resp: Acute respiratory failure secondary to aspiration pneumonia Status post tracheostomy exchange TP up to 10 hours 02/25. Subsequently had not tolerated CPAP but 03/02 seems to be improving. Continue daily CPAP and transition to Tpiece trials. Ventilator bundle. Albuterol/ipratropium every 6 hours aerosols with albuterol nebulizers every 2 hours Chest x-ray 02/22 revealed lower lobe infiltrates bilaterally. CXR 02/25 essentially clear #8 Shiley percutaneous tracheostomy downsized #6 Shiley on 02/21 due to respiratory distress. (Per Dr. Mantilla, unable to pass new 8.0 Shiley and 6.0 was placed) GI: Nausea/vomiting Elevated transaminases History pancreatitis/pseudocyst Chronic protein energy malnutrition Follow-up on CT abdomen/pelvis revealed air bronchograms bilateral. Gastric tube in place. No signs of ileus or obstruction. Tube feeding with vital 1.5 goal 50 cc an hour per nutrition recommendations from 02/28 IR exchanged G/J Tube 02/25 Pantoprazole for GI prophylaxis. Docusate sodium/senna twice a day for bowel regimen. Having bowel movements. FEN/RENAL: Hypernatremia Hypophosphatemia (resolved) Hypokalemia Pseudohyperkalemia 03/01 (hemolysis) Acute kidney injury. Nonoliguric. FeNa 3% c/w ATN. Urine eosinophils negative 02/27 Creatinine downtrending. Lasix 40 mgIV q8 hours, KCl 25 [id number] x3 doses Discontinued 0.9 NaC on 03/01. On free water flushes 200 every 6. Replace electrolytes per ICU electrolyte replacement protocol. Condom cath. Renal ultrasound 02/26 - R kidney enlarged. No hydronephrosis. Endo: Diabetes mellitus Sliding-scale insulin with NovoLog with Accu-Cheks to maintain euglycemia/low regimen every 6 hours Heme: Normocytic anemia Thrombocytopenia Chronic Apixaban Multiple superficial and deep upper extremity thromboses occlusive thrombus bilateral cephalic's, right basilic, nonocclusive thrombus of right brachial and left basilic on u/s 03/01 Apixaban 5 mg bid per tube. ID: Pseudomonas pneumonia Strep viridans bacteremia - Present on admission, midline catheter associated. History ESBL positive Escherichia coli MDRO positive History MRSA Currently on Cefepime 02/27 - , tobramycin nebs 02/25-02/[address] Reynolds Blood cultures 2 02/21 strep viridans, sputum culture Pseudomonas. Repeat blood cultures 02/23 neg to date. [facility]line [facility] at [facility] ~1.5 weeks prior to admission per mother. H/o dvt LUE in past (~ 1 year ago) so performed u/s extremities to eval for DVT prior to possible new u/s guided line. PIVs, midline discontinued UA, Legionella pneumococcal urinary antigen, influenza all negative/no growth 2-D echocardiogram ordered rule out endocarditis-neg for veg MSK: Muscle contractures PT evaluate and treat Access - Utilize peripheral IV. Prophylaxis - GI - pantoprazole 40 mg IV daily for stress ulcer prophylaxis. - DVT - SCD/Apixaban 5 mg twice a day ACCESS: Patient with severe anoxic injury whose overall long-term prognosis is quite poor. Now with carbapenem resistant Pseudomonas pneumonia. Mother updated by telephone 03/01 and 03/02 and multiple questions answered. She confirms she desires FULL CODE. Overall impression: Will require PT/OT and long-tern care. [facility] has turned him down. Awaiting placement. Viktor Smith MD Mar 07, 2017 16:35
[2017-03-08] VITALS (12 sets, daily range): BP systolic 91–119; BP diastolic 46–67; PULSE 62–130; RESP 13–26; TEMP 98.1–99.6; O2SAT 96–100
[2017-03-08] MEDS: CEFEPIME INJ 2,000 MG in SODIUM CHLORIDE 0.9% INJ 100 ML IV SCH ×2 (01:59→13:31)
[2017-03-08] MEDS: HYOSCYAMINE 0.125 MG TAB PO SCH ×7 (01:59→23:21)
[2017-03-08] MEDS: CHLORHEXIDINE GLUCONATE 2 % 1 PACK (2 CLOTHS) TOP SCH (02:00)
[2017-03-08] MEDS: METOCLOPRAMIDE HCL 10 MG/2 ML VIAL IV PUSH SCH ×3 (05:35→19:49)
[2017-03-08] MEDS: hydrALAZINE HCL 50 MG TAB PO SCH ×3 (05:35→19:50)
[2017-03-08] MEDS: INSULIN ASPART SUPPLEMENTAL SCALE SQ SCH ×5 (05:35→23:20)
[2017-03-08] MEDS: FREE WATER G-TUBE SCH ×5 (05:36→23:20)
[2017-03-08 06:31] LABS: HEMATOCRIT 43.1 % (39.0-51.0); MEAN CELL VOLUME 90.8 FL (80.0-100.0); MEAN CORPUSCULAR HEMOGLOBIN 29.5 PG (27.0-34.0); MEAN CORPUSCULAR HGB CONC 32.5 % (32.0-36.0); RED BLOOD COUNT 4.74 MIL/MM3 (4.50-5.90); RED CELL DISTRIBUTION WIDTH 12.6 % (11.6-17.2); WHITE BLOOD COUNT 7.1 TH/MM3 (4.0-11.0)
[2017-03-08 06:42] LABS: POTASSIUM 3.9 MEQ/L (3.5-5.1)
[2017-03-08 06:46] LABS: BICARBONATE 30.2 MEQ/L (21.0-32.0)
[2017-03-08 07:00] LABS: PLATELET COUNT 286 TH/MM3 (150-450); REVIEW FLAG FINAL
--- NOTE | 2017-03-08 07:00 | HHI.CCPN ---
Subjective Remarks/Hospital Course 31-year-old male. Resident of [facility] or rehabilitation. Past medical history includes anoxic brain injury 03/21 Temovate due to Haldol administration, recurrent aspiration pneumoniaMDRO positive MRSA positive ESBL positive Escherichia coli in past, hypertension, dyslipidemia, history of pseudocyst/necrotizing, diabetes mellitus presents with a one-week history of nausea/vomiting according to his mother at this nursing facility. He was also recently diagnosed with a fever started on amoxicillin Upon presentation to the ED, patient was noted of temperature 100.2. Leukocytosis 14.5 and elevated transaminases. Lactic acid 4.1. Received 3 L normal saline. Start empirically on piperacillin/tazobactam and vancomycin. Pancultured. Chest x-ray revealed no acute findings. CT abdomen/pelvis and amylase lipase all pending. Upon presentation the floor, patient was tachycardic in acute respiratory distress. Tracheostomy was exchanged for an 8.0-6.0 Shiley. Patient is currently sedated on the ventilator on Midazolam And fentanyl drips. 02/22: Asymptomatically Bradycardic overnight. CT abdomen/pelvis revealed air bronchograms lower lobes bilateral lungs otherwise unremarkable. Will initiate tube feeding today. Potassium will be replaced. 02/23: Became tachycardic overnight with movement. We'll attempt PSV trial today. Off all continuous sedation and analgesia. 02/24: Remains intubated, moves all extremities. tolerating CPAP 06/10. CXR mild basilar infiltrated 02/25: Remains off vasopressor. Tolerated TP 3-4 hours yesterday. Tmax 100.8. Neuro at baseline. G/J tube exchanged. 02/26: Tolerated TP up to 10 hour yesterday. Bloody trach secretions has almost resolved. Chest x-ray is unchanged. Fever trending down 02/27: Hypertensive. Vomited X 2, hold TFs, add reglan. Persistent minimal bloody secretions. 02/28: Failed SBT again today. Pseudomonas persists in sputum. 03/01 Remains hypertensive >180 despite prns. Anisocoria with L pupil 7 mm and sluggishly reactive, has been documented previously by nursing 02/21 and forward. Placed on CPAP 04/10. Tube feeds at 25 mL/hr, being slowly advanced. Having BMs 03/02 U/s from E with occlusive thrombus bilateral cephalic's, right basilic, nonocclusive thrombus of right brachial and left basilic. Will discontinue Midline from outside facility. U/s guided PIV for completion of abx course. Was net even yesterday with diuretics and creatinine now downtrended to 1.23 Tolerating CPAP 03/03: no clinical changes. tolerating CPAP. weaning. 03/04: Tolerating T-piece today. Severe contractures remains problematic. 03/05: Off ventilator. Tolerates T-piece. Needs ongoing PT/OT. 03/06: Off vent for over 2 days. Placement now the main issue. 03/07: remains off the vent on t-piece. still awaiting placement. tachycardic today to the 140s- per mom, he gets tachycardic when agitated, ativan iv works best for this per mom. 1mg iv ativan given and 2.5 mg iv lopressor with improvement in hemodynamics. 03/08 No events overnight. On TP's with 28% FIO2 for days. Afebrile. Objective Vital Signs Date Time Temp Pulse Resp B/P (MAP) Pulse Ox O2 Delivery O2 Flow Rate FiO2 03/08/17 06:00 106 03/08/17 04:00 98.1 15 100/54 (69) 100 03/07/17 20:30 T-Piece 28 03/07/17 08:11 6.00 Intake and Output 03/08/17 03/08/17 03/08/17 07:59 15:59 23:59 Intake Total 458 ml Output Total 700 ml Balance -242 ml Result Diagram: 03/07/17 0430 03/08/17 0547 Other Results Laboratory Tests Test 03/08/17 05:47 Blood Urea Nitrogen 45 MG/DL Creatinine 1.30 MG/DL Random Glucose 115 MG/DL Calcium Level 9.4 MG/DL Sodium Level 144 MEQ/L Potassium Level 3.9 MEQ/L Chloride Level 107 MEQ/L Carbon Dioxide Level 30.2 MEQ/L Anion Gap 7 MEQ/L Estimat Glomerular Filtration Rate 79 ML/MIN Imaging Last Impressions Upper Extremity Ultrasound 03/01/17 0000 Signed Impressions: Service Date/Time: Wednesday, March 01, 2017 20:17 - CONCLUSION: Occlusive thrombus within the cephalic veins bilaterally and the right basilic vein as well as nonocclusive thrombus within the right brachial and left basilic veins. Peter Nolan MD Head CT 03/01/17 0000 Signed Impressions: Service Date/Time: Wednesday, March 01, 2017 11:29 - CONCLUSION: Noncontrast CT findings are typical of a severe, diffuse anoxic cerebral event, probably subacute. No bleed. No midline shift. Santo Fisher MD Chest X-Ray 02/27/17 0600 Signed Impressions: Service Date/Time: February 05:02 - CONCLUSION: 1. Right basilar airspace disease similar to February 26. No new findings. Stephan Rich MD Renal Ultrasound 02/26/17 0000 Signed Impressions: Service Date/Time: Sunday, February 26, 2017 23:26 - CONCLUSION: 1. Right kidney is enlarged. No hydronephrosis identified. No acute findings. Stephan Rich MD Tube Change 02/25/17 0000 Signed Impressions: Service Date/Time: Saturday, February 25, 2017 10:57 - CONCLUSION: Uncomplicated gastrojejunostomy tube exchange as above. Beny Whalen MD Sinuses CT 02/21/17 0000 Signed Impressions: Service Date/Time: Tuesday, February 21, 2017 22:44 - CONCLUSION: 1. No evidence for acute sinusitis. Mucosal thickening right maxillary sinus. Stephan Rich MD Abdomen/Pelvis CT 02/21/17 0000 Signed Impressions: Service Date/Time: Tuesday, February 21, 2017 22:47 - CONCLUSION: 1. Basilar dependent lung consolidation with air bronchograms. Differential diagnosis includes pneumonia and aspiration. 2. Feeding gastrojejunostomy present. No bowel dilatation or evidence for obstruction. Mild constipation. Stephan Rich MD Objective Remarks GENERAL: 31-year-old -[place] male, chronically ill. SKIN: Mild diaphoresis No rash. HEAD: Atraumatic. Normocephalic. EYES: Right pupil 5 mm and sluggishly reactive, L pupil 7 mm questionably reactive. No conjunctival icterus. No injection or drainage. ENT: No nasal bleeding or discharge. Mucous membranes pink and moist. NECK: Trachea midline. No JVD. #[address] Site clean. CARDIOVASCULAR: NL S1S2 rate in 140s. No JVD. RESPIRATORY: equal chest rise. unlabored. on trach collar GASTROINTESTINAL: Abdomen soft, non-tender, nondistended. GJ tube in left upper quadrant is clean dry and intact : condom cath in place MUSCULOSKELETAL: Contracted joints. NEUROLOGICAL: Eyes are open spontaneously, no tracking, no response. Bilateral extremities are in flexion, contracted. Bilateral lower extremities with rigidity, foot drop bilaterally. A/P Assessment and Plan Neuro/Psych: Anisocoria - appears is chronic. History of anoxic brain injury Chronic muscle relaxant use Seizure disorder NOS Continue levetiracetam 1000 mg by PEG tube twice a day for seizure disorder, Seizure precautions As needed lorazepam 0.5-1 mg every 2 hours by PEG tube for agitation Baclofen 20 3 times a day Acetaminophen for fever/pain Previously on oxycodone/acetaminophen 5/325 one tablet every 4 hours when necessary pain. Resumed 02/22 CT brain - c/w sever anoxic injury with no acute findings. Sinus scan from 02/21 with atrophy but no acute abnormality. CV: Sinus bradycardia History of hypertension History dyslipidemia Lactic acidosis On Lopressor 25mg Q12, Hydralazine 50 mg Q8, Norvasc 10 mg daily Hydralazine 20 mg IV every 3 hours when necessary systolic blood pressure greater than 160 Monitor HR and BP keep MAP>65mmHg Resp: Acute respiratory failure secondary to aspiration pneumonia Status post tracheostomy exchange Continue with oxygen keep sat >92%. Has been on TP's for days. Ventilator bundle. Albuterol/ipratropium every 6 hours aerosols with albuterol nebulizers every 2 hours #8 Shiley percutaneous tracheostomy downsized #6 Shiley on 02/21 due to respiratory distress. Pulm toilet, trach care. Pulm is following= Dr. Anderson GI: Nausea/vomiting Elevated transaminases History pancreatitis/pseudocyst Chronic protein energy malnutrition Follow-up on CT abdomen/pelvis revealed air bronchograms bilateral. Gastric tube in place. No signs of ileus or obstruction. Tube feeding with vital 1.5 goal 50 cc an hour per nutrition recommendations from 02/28 IR exchanged G/J Tube 02/25 Pantoprazole for GI prophylaxis. Docusate sodium/senna twice a day for bowel regimen. Having bowel movements. FEN/RENAL: Acute kidney injury. On free water flushes 200 every 6. Replace electrolytes per ICU electrolyte replacement protocol. Condom cath. Renal ultrasound 02/26 - R kidney enlarged. No hydronephrosis. Endo: Diabetes mellitus Sliding-scale insulin with NovoLog with Accu-Cheks to maintain euglycemia/low regimen every 6 hours Heme: Normocytic anemia Thrombocytopenia Chronic Apixaban Multiple superficial and deep upper extremity thromboses occlusive thrombus bilateral cephalic's, right basilic, nonocclusive thrombus of right brachial and left basilic on u/s 03/01 Apixaban 5 mg bid per tube. ID: Pseudomonas pneumonia Strep viridans bacteremia - Present on admission, midline catheter associated. History ESBL positive Escherichia coli MDRO positive History MRSA Currently on Cefepime 02/27 -03/[address] Reynolds Blood cultures 2 02/21 strep viridans, sputum culture Pseudomonas. Repeat blood cultures 02/23 neg to date. Midline catheter placed at long term ~1.5 weeks prior to admission per mother. H/o dvt LUE in past (~ 1 year ago) so performed u/s extremities to eval for DVT prior to possible new u/s guided line. PIVs, midline discontinued UA, Legionella pneumococcal urinary antigen, influenza all negative/no growth 2-D echocardiogram ordered rule out endocarditis-neg for veg MSK: Muscle contractures PT evaluate and treat Access - Utilize peripheral IV. Prophylaxis - GI - pantoprazole 40 mg IV daily for stress ulcer prophylaxis. - DVT - SCD/Apixaban 5 mg twice a day ACCESS: Will require PT/OT and long-tern care. [facility] has turned him down. Awaiting placement. Will sign off and transfer care to [facility] Level 2 Jack Cramer MD Mar 08, 2017 07:00
[2017-03-08] MEDS: ARTIFICIAL TEARS OPTH SOLN 15 ML BTL EACH EYE SCH ×3 (09:00→17:55)
[2017-03-08] MEDS: CHLORHEXIDINE 0.12% (ORAL KIT) 15 ML CUP MT SCH ×2 (10:02→19:50)
[2017-03-08] MEDS: SODIUM CHLORIDE 0.9% FLUSH 10 ML FLUSH IV FLUSH SCH ×2 (10:03→19:49)
[2017-03-08] MEDS: LACTULOSE SYRUP 20 GM/30 ML CUP PO PRN (10:03)
[2017-03-08] MEDS: levETIRAcetam 500 MG/5 ML UDC G-TUBE SCH ×2 (10:03→19:49)
[2017-03-08] MEDS: DOCUSATE SODIUM 50 MG/SENNA 8.6 MG TAB PO SCH ×2 (10:04→19:50)
[2017-03-08] MEDS: PANTOPRAZOLE SODIUM 40 MG VIAL IV SCH (10:04)
[2017-03-08] MEDS: APIXABAN 5 MG TABLET G-TUBE SCH ×2 (10:04→19:49)
[2017-03-08] MEDS: METOPROLOL TARTRATE 25 MG TAB PO SCH ×2 (10:04→19:49)
[2017-03-08] MEDS: LORATADINE 10 MG TAB G-TUBE SCH (10:04)
[2017-03-08] MEDS: BACLOFEN 10 MG TAB G-TUBE SCH ×3 (10:05→17:55)
[2017-03-09] VITALS (9 sets, daily range): BP systolic 103–154; BP diastolic 47–75; PULSE 72–112; RESP 17–30; TEMP 99–101.8; O2SAT 96–100
[2017-03-09] MEDS: CHLORHEXIDINE GLUCONATE 2 % 1 PACK (2 CLOTHS) TOP SCH (04:00)
[2017-03-09] MEDS: HYOSCYAMINE 0.125 MG TAB PO SCH ×5 (05:34→20:00)
[2017-03-09] MEDS: FREE WATER G-TUBE SCH ×3 (05:34→17:37)
[2017-03-09] MEDS: INSULIN ASPART SUPPLEMENTAL SCALE SQ SCH ×3 (05:34→17:40)
[2017-03-09] MEDS: METOCLOPRAMIDE HCL 10 MG/2 ML VIAL IV PUSH SCH ×3 (05:34→21:29)
[2017-03-09] MEDS: hydrALAZINE HCL 50 MG TAB PO SCH ×3 (05:34→21:29)
[2017-03-09 06:23] LABS: HEMATOCRIT 39.6 % (39.0-51.0); MEAN CELL VOLUME 91.4 FL (80.0-100.0); MEAN CORPUSCULAR HEMOGLOBIN 30.8 PG (27.0-34.0); MEAN CORPUSCULAR HGB CONC 33.7 % (32.0-36.0); PLATELET COUNT 221 TH/MM3 (150-450); RED BLOOD COUNT 4.34 MIL/MM3 (4.50-5.90); RED CELL DISTRIBUTION WIDTH 12.3 % (11.6-17.2); REVIEW FLAG FINAL; WHITE BLOOD COUNT 8.6 TH/MM3 (4.0-11.0)
[2017-03-09 06:29] LABS: POTASSIUM 3.9 MEQ/L (3.5-5.1)
[2017-03-09 06:34] LABS: BICARBONATE 29.1 MEQ/L (21.0-32.0)
[2017-03-09] MEDS: LACTULOSE SYRUP 20 GM/30 ML CUP PO PRN (08:41)
[2017-03-09] MEDS: levETIRAcetam 500 MG/5 ML UDC G-TUBE SCH ×2 (08:41→20:00)
[2017-03-09] MEDS: CHLORHEXIDINE 0.12% (ORAL KIT) 15 ML CUP MT SCH ×2 (08:41→20:00)
[2017-03-09] MEDS: LORATADINE 10 MG TAB G-TUBE SCH (08:42)
[2017-03-09] MEDS: ARTIFICIAL TEARS OPTH SOLN 15 ML BTL EACH EYE SCH ×3 (08:42→17:38)
[2017-03-09] MEDS: METOPROLOL TARTRATE 25 MG TAB PO SCH ×2 (08:42→20:01)
[2017-03-09] MEDS: BACLOFEN 10 MG TAB G-TUBE SCH ×3 (08:42→17:34)
[2017-03-09] MEDS: PANTOPRAZOLE SODIUM 40 MG VIAL IV SCH (08:42)
[2017-03-09] MEDS: DOCUSATE SODIUM 50 MG/SENNA 8.6 MG TAB PO SCH ×2 (08:42→20:00)
[2017-03-09] MEDS: APIXABAN 5 MG TABLET G-TUBE SCH ×2 (08:42→20:01)
[2017-03-09] MEDS: PILL SPLITTER OTHER PRN (08:43)
[2017-03-09] MEDS: SODIUM CHLORIDE 0.9% FLUSH 10 ML FLUSH IV FLUSH SCH ×2 (08:43→20:01)
[2017-03-09] MEDS: ATROPINE SULFATE 1% OPHT SOLN 5 ML BTL SL PRN (08:43)
--- NOTE | 2017-03-09 12:03 | HHI.PR ---
Subjective Remarks Patient seen today in follow-up for sepsis due to pseudomonal pneumonia and strep viridans bacteremia (present on admission and midline catheter associated) . Patient with a known history of ESBL positive Escherichia coli, history of MRSA. Patient was transferred to the medical unit at [place] and is now transferred from the ICU team to the medical team in follow-up. He completed his cefepime yesterday and now has new fevers 101.8. Patient is having tremors and clonus which is not new but appears to be more since yesterday. Patient is non-responsive due to persistent vegetative state after anoxic brain injury in March 2015. Objective Vitals Vital Signs Date Time Temp Pulse Resp B/P (MAP) Pulse Ox O2 Delivery O2 Flow Rate FiO2 03/09/17 08:00 98 T-Piece 28 03/09/17 08:00 93 03/09/17 08:00 100 T-piece 28 03/09/17 08:00 99.1 93 30 154/70 (98) 97 03/09/17 04:00 108 03/09/17 04:00 99.0 108 18 131/59 (83) 98 03/09/17 00:00 99.3 72 17 103/47 (65) 99 03/09/17 00:00 72 03/08/17 20:00 99.6 106 26 111/61 (78) 100 03/08/17 20:00 T-Piece 28 03/08/17 20:00 106 03/08/17 19:55 100 T-piece 03/08/17 16:01 98.5 98 22 102/53 (69) 99 03/08/17 16:01 98 03/08/17 12:00 100 03/08/17 12:00 98.5 100 25 110/53 (72) 99 I/O 03/08/17 03/08/17 03/08/17 03/09/17 03/09/17 03/09/17 06:59 14:59 22:59 06:59 14:59 22:59 Intake Total 458 ml 100 ml 1138 ml 1014 ml Output Total 700 ml Balance -242 ml 100 ml 1138 ml 1014 ml IV Total 20 ml 100 ml Tube Feeding 438 ml 618 ml 614 ml Other 520 ml 400 ml Output Urine Total 700 ml # Voids 6 3 # Bowel Movements 0 0 Result Diagram: 03/09/17 0545 03/09/17 0545 Procedures GENERAL: This is a frail gentleman who has a tracheostomy, has contractures CARDIOVASCULAR: Regular rate and rhythm without murmurs, gallops, or rubs. RESPIRATORY: Clear to auscultation. Breath sounds equal bilaterally. No wheezes , rales, or rhonchi. GASTROINTESTINAL: Feeding tube in place MUSCULOSKELETAL: Extremities without clubbing, cyanosis, or edema. NEURO: Eyes open without tracking, pupils are asymmetrical and poorly reactive, bilateral flexion and contraction which is chronic A/P Problem List: (1) Permanent vegetative state ICD Code: R40.3 - Persistent vegetative state Status: Acute Plan: From persistent low from anoxic encephalopathy Unchanged, chronically senior living resident and will need to go back once stable (2) Sepsis ICD Code: A41.9 - Sepsis, unspecified organism Status: Acute Plan: Sepsis on admission, due to pneumonia (sputum positive for Pseudomonas) patient complete cefepime 03/08 (3) Tachycardia ICD Code: R00.0 - Tachycardia, unspecified Plan: Persistent and worse with clonic movements Patient also with a history of hypertension and remains on Lopressor, hydralazine and Norvasc with goals to keep MAP greater than 65 Patient remains full code (4) Chronic respiratory failure ICD Code: J96.10 - Chronic respiratory failure, unspecified whether with hypoxia or hypercapnia Plan: Status post tracheostomy, continue trach care Patient with aspiration pneumonia (5) Seizure disorder ICD Code: G40.909 - Epilepsy, unspecified, not intractable, without status epilepticus Plan: We'll continue with lorazepam as needed, continue Keppra thousand milligrams twice daily Continue pain control( (6) Fever ICD Code: R50.9 - Fever, unspecified Plan: New temperature today after completing antibiotics MAXIMUM TEMPERATURE 101.8 Follow-up chest x-ray, blood cultures and urine Problem Qualifiers (1) Sepsis: Maya Briggs MD Mar 09, 2017 12:03
--- NOTE | 2017-03-09 12:58 | RADRPT ---
EXAM DATE/TIME: 03/09/2017 12:45 [facility] COMPARISON: CHEST SINGLE AP, February 27, 2017, 5:02. INDICATIONS : Fever MEDICAL HISTORY : Seizures SURGICAL HISTORY : Tracheostomy ENCOUNTER: Subsequent ACUITY: 3 weeks PAIN SCORE: Non-responsive. LOCATION: Bilateral chest FINDINGS: A single view of the chest demonstrates the lungs to be symmetrically aerated without evidence of mas s, infiltrate or effusion. The cardiomediastinal contours are unremarkable. Trach tube in good posi tion. Osseous structures are intact. CONCLUSION: No acute disease. Hudson Zepeda MD FACR on March 09, 2017 at 12:55 Board Certified Radiologist. This report was verified electronically.
[2017-03-09] MEDS: ACETAMINOPHEN 650 MG/20.3 ML UDC PEG PRN (13:13)
[2017-03-09] MEDS: CEFEPIME INJ 1,000 MG in SODIUM CHLORIDE 0.9% INJ 100 ML IV SCH (21:29)
[2017-03-10] VITALS (7 sets, daily range): BP systolic 97–111; BP diastolic 44–62; PULSE 66–106; RESP 16–20; TEMP 99–99.1; O2SAT 96–100
[2017-03-10] MEDS: CHLORHEXIDINE GLUCONATE 2 % 1 PACK (2 CLOTHS) TOP SCH (04:00)
[2017-03-10] MEDS: HYOSCYAMINE 0.125 MG TAB PO SCH ×6 (04:09→20:54)
[2017-03-10] MEDS: CEFEPIME INJ 1,000 MG in SODIUM CHLORIDE 0.9% INJ 100 ML IV SCH ×3 (04:10→20:53)
[2017-03-10] MEDS: METOCLOPRAMIDE HCL 10 MG/2 ML VIAL IV PUSH SCH ×3 (06:00→20:55)
[2017-03-10] MEDS: FREE WATER G-TUBE SCH ×4 (06:00→15:20)
[2017-03-10] MEDS: INSULIN ASPART SUPPLEMENTAL SCALE SQ SCH ×4 (06:00→17:43)
[2017-03-10] MEDS: hydrALAZINE HCL 50 MG TAB PO SCH ×3 (06:00→20:55)
[2017-03-10 06:18] LABS: AUTOMATED NEUTROPHIL # 7.2 TH/MM3 (1.8-7.7); BASOPHIL # 0.1 TH/MM3 (0-0.2); BASOPHIL % 0.6 % (0.0-2.0); EOSINOPHIL # 0.2 TH/MM3 (0-0.4); EOSINOPHIL % 1.8 % (0.0-4.0); LYMPH % 20.4 % (9.0-44.0); LYMPHOCYTE # 2.1 TH/MM3 (1.0-4.8); MEAN CELL VOLUME 92.8 FL (80.0-100.0); MEAN CORPUSCULAR HEMOGLOBIN 29.5 PG (27.0-34.0); MEAN CORPUSCULAR HGB CONC 31.8 % (32.0-36.0); MONO % 7.6 % (0.0-8.0); NEUT % 69.6 % (16.0-70.0); PLATELET COUNT 181 TH/MM3 (150-450); RED BLOOD COUNT 4.32 MIL/MM3 (4.50-5.90); RED CELL DISTRIBUTION WIDTH 12.9 % (11.6-17.2); WHITE BLOOD COUNT 10.4 TH/MM3 (4.0-11.0)
[2017-03-10 06:19] LABS: POTASSIUM 3.8 MEQ/L (3.5-5.1)
[2017-03-10 06:21] LABS: HEMO FLAGS AUTO DIFF
[2017-03-10 06:24] LABS: BICARBONATE 27.6 MEQ/L (21.0-32.0)
[2017-03-10 07:02] LABS: EOSINOPHILS 2 % (0-4); NEUTROPHIL # MANUAL DIFF 7.7 TH/MM3 (1.8-7.7); POLYS (SEG NEUTROPHILS) 74 % (16-70); SCAN/DIFF FINAL DIFF MANUAL; WBC DIFF SAMPLE 100
[2017-03-10] MEDS: CHLORHEXIDINE 0.12% (ORAL KIT) 15 ML CUP MT SCH ×2 (08:00→20:53)
[2017-03-10] MEDS: SODIUM CHLORIDE 0.9% FLUSH 10 ML FLUSH IV FLUSH SCH ×2 (08:57→20:54)
[2017-03-10] MEDS: BACLOFEN 10 MG TAB G-TUBE SCH ×3 (08:57→17:31)
[2017-03-10] MEDS: PANTOPRAZOLE SODIUM 40 MG VIAL IV SCH (08:57)
[2017-03-10] MEDS: APIXABAN 5 MG TABLET G-TUBE SCH ×2 (08:58→20:53)
[2017-03-10] MEDS: LORATADINE 10 MG TAB G-TUBE SCH (08:58)
[2017-03-10] MEDS: METOPROLOL TARTRATE 25 MG TAB PO SCH ×2 (08:58→20:54)
[2017-03-10] MEDS: DOCUSATE SODIUM 50 MG/SENNA 8.6 MG TAB PO SCH ×2 (08:58→20:54)
[2017-03-10] MEDS: LORazepam 0.5 MG TAB PO PRN (08:58)
[2017-03-10] MEDS: levETIRAcetam 500 MG/5 ML UDC G-TUBE SCH ×2 (08:58→20:54)
[2017-03-10] MEDS: ARTIFICIAL TEARS OPTH SOLN 15 ML BTL EACH EYE SCH ×3 (08:59→15:20)
[2017-03-10] MEDS: oxyCODONE/ACETAMINOPHEN 5 MG/325 MG TAB PO PRN ×2 (11:05→11:27)
[2017-03-10] MEDS: ACETAMINOPHEN 650 MG/20.3 ML UDC PEG PRN ×2 (11:06→11:26)
--- NOTE | 2017-03-10 13:36 | HHI.PR ---
Subjective Remarks Patient seen in room no further fever mom at bedside discussed with pcu rn no further fever, cefepime added yesterday by pulmonary, urine neg, cxr neg, bc neg at 1 day Objective Vitals Vital Signs Date Time Temp Pulse Resp B/P (MAP) Pulse Ox O2 Delivery O2 Flow Rate FiO2 03/10/17 12:10 18 03/10/17 12:10 18 03/10/17 10:17 T-Piece 8.00 28 03/10/17 08:08 100 T-piece 28 03/10/17 04:00 104 03/10/17 04:00 99.0 106 20 102/44 (63) 99 03/10/17 00:00 99.1 95 20 111/62 (78) 96 03/10/17 00:00 94 03/09/17 20:28 97 T-piece 8.00 28 03/09/17 20:00 91 03/09/17 20:00 97 T-Piece 28 03/09/17 20:00 99.6 88 22 120/61 (80) 97 03/09/17 17:53 76 03/09/17 17:50 101.4 76 138/75 (96) 96 03/09/17 14:00 100.1 96 20 96 03/09/17 14:00 96 I/O 03/09/17 03/09/17 03/09/17 03/10/17 03/10/17 03/10/17 07:00 15:00 23:00 07:00 15:00 23:00 Intake Total 1014 ml 1025 ml 1041 ml Output Total 200 ml 1200 ml Balance 1014 ml 825 ml -159 ml Tube Feeding 614 ml 625 ml 641 ml Other 400 ml 400 ml 400 ml Output Urine Total 1200 ml Gastric Drainage Total 200 ml # Voids 3 # Bowel Movements 0 0 Result Diagram: 03/10/17 0532 03/10/17 0532 Procedures GENERAL: This is a frail gentleman who has a tracheostomy, has contractures CARDIOVASCULAR: Regular rate and rhythm without murmurs, gallops, or rubs. RESPIRATORY: Clear to auscultation. Breath sounds equal bilaterally. No wheezes , rales, or rhonchi. GASTROINTESTINAL: Feeding tube in place MUSCULOSKELETAL: Extremities without clubbing, cyanosis, or edema. NEURO: Eyes open without tracking, pupils are asymmetrical and poorly reactive, bilateral flexion and contraction which is chronic A/P Problem List: (1) Permanent vegetative state ICD Code: R40.3 - Persistent vegetative state Status: Acute Plan: From persistent low from anoxic encephalopathy Unchanged, chronically [facility] resident and will need to go back once stable (2) Sepsis ICD Code: A41.9 - Sepsis, unspecified organism Status: Acute Plan: Sepsis on admission, due to pneumonia (sputum positive for Pseudomonas) patient completed cefepime 03/08, but it was restarted yesterday by pulm (3) Tachycardia ICD Code: R00.0 - Tachycardia, unspecified Plan: Persistent and worse with clonic movements Patient also with a history of hypertension and remains on Lopressor, hydralazine and Norvasc with goals to keep MAP greater than 65 Patient remains full code (4) Chronic respiratory failure ICD Code: J96.10 - Chronic respiratory failure, unspecified whether with hypoxia or hypercapnia Plan: Status post tracheostomy, continue trach care Patient with aspiration pneumonia (5) Seizure disorder ICD Code: G40.909 - Epilepsy, unspecified, not intractable, without status epilepticus Plan: We'll continue with lorazepam as needed, continue Keppra thousand milligrams twice daily Continue pain control( (6) Fever ICD Code: R50.9 - Fever, unspecified Plan: no further fever, cefepime through 03/13 per pulmonary Discharge Planning to snf when stable Problem Qualifiers (1) Sepsis: Maya Briggs MD Mar 10, 2017 13:36
[2017-03-10] MEDS: LORazepam 1 MG TAB G-TUBE PRN (17:31)
[2017-03-11] VITALS (20 sets, daily range): BP systolic 59–180; BP diastolic 30–88; PULSE 54–160; RESP 13–44; TEMP 98.5–101; O2SAT 93–100
[2017-03-11] MEDS: HYOSCYAMINE 0.125 MG TAB PO SCH ×6 (00:07→21:16)
[2017-03-11] MEDS: CEFEPIME INJ 1,000 MG in SODIUM CHLORIDE 0.9% INJ 100 ML IV SCH ×3 (03:18→21:15)
[2017-03-11] MEDS: CHLORHEXIDINE GLUCONATE 2 % 1 PACK (2 CLOTHS) TOP SCH (03:18)
[2017-03-11] MEDS: METOCLOPRAMIDE HCL 10 MG/2 ML VIAL IV PUSH SCH ×3 (05:35→21:15)
[2017-03-11] MEDS: INSULIN ASPART SUPPLEMENTAL SCALE SQ SCH ×4 (05:36→16:53)
[2017-03-11] MEDS: hydrALAZINE HCL 50 MG TAB PO SCH ×3 (05:36→21:16)
[2017-03-11] MEDS: FREE WATER G-TUBE SCH ×4 (05:36→18:00)
[2017-03-11] MEDS: CHLORHEXIDINE 0.12% (ORAL KIT) 15 ML CUP MT SCH ×2 (08:00→21:15)
[2017-03-11] MEDS: BACLOFEN 10 MG TAB G-TUBE SCH ×3 (08:23→18:16)
[2017-03-11] MEDS: DOCUSATE SODIUM 50 MG/SENNA 8.6 MG TAB PO SCH ×2 (08:23→21:00)
[2017-03-11] MEDS: LORATADINE 10 MG TAB G-TUBE SCH (08:23)
[2017-03-11] MEDS: levETIRAcetam 500 MG/5 ML UDC G-TUBE SCH ×2 (08:24→21:15)
[2017-03-11] MEDS: PANTOPRAZOLE SODIUM 40 MG VIAL IV SCH (08:24)
[2017-03-11] MEDS: APIXABAN 5 MG TABLET G-TUBE SCH ×2 (08:24→21:16)
[2017-03-11] MEDS: METOPROLOL TARTRATE 25 MG TAB PO SCH ×2 (08:24→21:16)
[2017-03-11] MEDS: SODIUM CHLORIDE 0.9% FLUSH 10 ML FLUSH IV FLUSH SCH ×2 (08:25→21:16)
[2017-03-11] MEDS: ARTIFICIAL TEARS OPTH SOLN 15 ML BTL EACH EYE SCH ×3 (08:25→18:16)
--- NOTE | 2017-03-11 11:11 | HHI.PR ---
Subjective Remarks Patient unable to give history. He has been transitioned to trach collar. Continued improvement on treatments. Objective Vital Signs Date Time Temp Pulse Resp B/P (MAP) Pulse Ox O2 Delivery O2 Flow Rate FiO2 03/11/17 09:15 88 03/11/17 08:00 T-Piece 8.00 28 03/11/17 08:00 98.6 94 23 59/30 (40) 100 03/11/17 08:00 99 T-piece 28 03/11/17 04:00 100 03/11/17 04:00 98.8 68 13 110/64 (79) 100 03/11/17 00:00 54 03/11/17 00:00 98.5 54 17 92/48 (63) 100 03/10/17 21:50 100 T-piece 6.00 28 03/10/17 20:50 99.0 66 16 111/54 (73) 100 03/10/17 20:00 T-Piece 8.00 28 03/10/17 20:00 94 03/10/17 16:15 99.0 68 16 97/47 (64) 03/10/17 12:10 18 03/10/17 12:10 18 I/O 03/10/17 03/10/17 03/10/17 03/11/17 03/11/17 03/11/17 07:00 15:00 23:00 07:00 15:00 23:00 Intake Total 1041 ml 100 ml 1050 ml Output Total 1200 ml 300 ml 700 ml Balance -159 ml -200 ml 350 ml IV Total 100 ml 100 ml Tube Feeding 641 ml 550 ml Other 400 ml 400 ml Output Urine Total 1200 ml 300 ml 700 ml # Bowel Movements 0 Result Diagram: 03/10/17 0532 03/10/17 0532 Objective Remarks GENERAL: NAD, A&Ox0 HEAD: Normocephalic. NECK: Supple, trachea midline. No lymphadenopathy. Tracheostomy present. EYES: No scleral icterus. No injection or drainage. CARDIOVASCULAR: Regular rate and rhythm without murmurs, gallops, or rubs. RESPIRATORY: Breath sounds equal bilaterally. No accessory muscle use. GASTROINTESTINAL: Abdomen soft, non-tender, nondistended. MUSCULOSKELETAL: No cyanosis, or edema. Global retractions SKIN: Warm and dry. NEURO: No focal neurological deficitis. A/P Assessment and Plan Assessment and plan 31-year-old male admitted with pneumonia and sepsis with a chronic baseline of persistent vegetative state and chronic respiratory failure. Persistent vegetative state History of anoxic brain injury Continue supportive care Once improved he'll transition back to his long-term facility Sepsis Fever Related to pneumonia Resolved Pneumonia Chronic respiratory failure Chronic tracheostomy Continue cefepime Pulmonology following Continue oxygen supplementation via trach collar as needed Tracheostomy maintenance Tachycardia Improved Continue on Lopressor Hypertension Continue Lopressor, hydralazine, Norvasc Monitor on telemetry Seizure disorder Continue lorazepam Continue Keppra DVT prophylaxis SCDs Eliquis Discharge Planning Changes back to long-term facility when patient stabilizes Lamonte Mckeon MD Mar 11, 2017 11:11
[2017-03-11] MEDS: ACETAMINOPHEN 650 MG/20.3 ML UDC PEG PRN ×2 (14:01→19:48)
[2017-03-11] MEDS: LORazepam 1 MG TAB G-TUBE PRN (14:35)
[2017-03-11] MEDS ORDERED: LORazepam 2 MG/ML VIAL IV PUSH ONE (19:45)
[2017-03-12] VITALS (11 sets, daily range): BP systolic 104–179; BP diastolic 54–85; PULSE 62–122; RESP 17–31; TEMP 97.5–99.7; O2SAT 98–100
[2017-03-12] MEDS: HYOSCYAMINE 0.125 MG TAB PO SCH ×6 (00:50→20:19)
[2017-03-12] MEDS: CEFEPIME INJ 1,000 MG in SODIUM CHLORIDE 0.9% INJ 100 ML IV SCH ×3 (03:39→20:16)
[2017-03-12] MEDS: CHLORHEXIDINE GLUCONATE 2 % 1 PACK (2 CLOTHS) TOP SCH (03:39)
[2017-03-12 04:59] LABS: HEMATOCRIT 39.3 % (39.0-51.0); MEAN CELL VOLUME 92.4 FL (80.0-100.0); MEAN CORPUSCULAR HEMOGLOBIN 30.3 PG (27.0-34.0); MEAN CORPUSCULAR HGB CONC 32.8 % (32.0-36.0); PLATELET COUNT 226 TH/MM3 (150-450); RED BLOOD COUNT 4.26 MIL/MM3 (4.50-5.90); RED CELL DISTRIBUTION WIDTH 12.6 % (11.6-17.2); WHITE BLOOD COUNT 6.6 TH/MM3 (4.0-11.0)
[2017-03-12 05:08] LABS: BICARBONATE 28.2 MEQ/L (21.0-32.0); REVIEW FLAG FINAL
[2017-03-12] MEDS: METOCLOPRAMIDE HCL 10 MG/2 ML VIAL IV PUSH SCH ×2 (05:52→13:31)
[2017-03-12] MEDS: FREE WATER G-TUBE SCH ×4 (05:53→17:36)
[2017-03-12] MEDS: hydrALAZINE HCL 50 MG TAB PO SCH ×3 (05:53→22:35)
[2017-03-12] MEDS: INSULIN ASPART SUPPLEMENTAL SCALE SQ SCH ×4 (05:53→17:36)
[2017-03-12 07:21] LABS: BLOOD, URINE NEG (NEG); GLUCOSE,URINE NEG (NEG); KETONE, URINE NEG (NEG); NITRITE,URINE NEG (NEG)
[2017-03-12 07:29] LABS: METHOD OF COLLECTION CLEAN CATCH
[2017-03-12 07:30] LABS: HYALINE CAST, URINE 0-2 /lpf (RARE); URINE COLOR YELLOW (YELLW/STRAW)
[2017-03-12 07:31] LABS: RBC, URINE 0-3 /hpf (0-3)
[2017-03-12 07:32] LABS: COMMENT (UR) CULT NOT INDICATED; CULTURE IF INDICATED CULT NOT INDICATED; SQUAMOUS EPITHELIAL CELL URINE 0-5 /hpf (0-5)
[2017-03-12] MEDS: ARTIFICIAL TEARS OPTH SOLN 15 ML BTL EACH EYE SCH ×3 (09:00→17:36)
[2017-03-12] MEDS: CHLORHEXIDINE 0.12% (ORAL KIT) 15 ML CUP MT SCH ×2 (09:04→20:15)
[2017-03-12] MEDS: LORATADINE 10 MG TAB G-TUBE SCH (09:04)
[2017-03-12] MEDS: LORazepam 1 MG TAB G-TUBE PRN (09:05)
[2017-03-12] MEDS: levETIRAcetam 500 MG/5 ML UDC G-TUBE SCH ×2 (09:05→20:19)
[2017-03-12] MEDS: PILL SPLITTER OTHER PRN (09:05)
[2017-03-12] MEDS: APIXABAN 5 MG TABLET G-TUBE SCH ×2 (09:05→20:18)
[2017-03-12] MEDS: BACLOFEN 10 MG TAB G-TUBE SCH ×3 (09:05→17:36)
[2017-03-12] MEDS: LACTULOSE SYRUP 20 GM/30 ML CUP PO PRN (09:05)
[2017-03-12] MEDS: DOCUSATE SODIUM 50 MG/SENNA 8.6 MG TAB PO SCH ×2 (09:05→20:19)
[2017-03-12] MEDS: METOPROLOL TARTRATE 25 MG TAB PO SCH ×2 (09:05→20:18)
[2017-03-12] MEDS: SODIUM CHLORIDE 0.9% FLUSH 10 ML FLUSH IV FLUSH SCH ×2 (09:06→20:46)
[2017-03-12] MEDS: ATROPINE SULFATE 1% OPHT SOLN 5 ML BTL SL PRN (09:06)
[2017-03-12] MEDS: PANTOPRAZOLE SODIUM 40 MG VIAL IV SCH (09:06)
--- NOTE | 2017-03-12 12:21 | HHI.PR ---
Subjective Remarks Patient is unable to interact. No worsening signs or symptoms since yesterday. Patient is tolerating trach collar. Patient unable to give history. Objective Vital Signs Date Time Temp Pulse Resp B/P (MAP) Pulse Ox O2 Delivery O2 Flow Rate FiO2 03/12/17 08:31 99 Trach Collar 7.00 28 03/12/17 08:00 96 Trach Collar 28 03/12/17 08:00 116 03/12/17 08:00 99.1 116 31 169/80 (109) 99 03/12/17 04:00 97.5 62 17 120/65 (83) 100 03/12/17 04:00 62 03/12/17 03:00 74 19 104/59 (74) 98 03/12/17 02:00 68 20 128/74 (92) 98 03/12/17 01:00 88 24 133/77 (95) 100 03/12/17 00:00 88 03/12/17 00:00 99.7 88 21 123/77 (92) 100 03/11/17 23:00 76 19 97/48 (64) 99 03/11/17 22:00 86 21 103/47 (65) 98 03/11/17 21:00 114 27 113/58 (76) 98 03/11/17 20:00 T-Piece 28 03/11/17 20:00 132 03/11/17 20:00 99.9 132 44 108/44 (65) 97 03/11/17 19:30 101.0 160 03/11/17 19:20 97 Trach Collar 6.00 28 03/11/17 19:00 116 38 112/50 (70) 97 03/11/17 18:00 110 30 119/63 (81) 98 03/11/17 17:38 99.0 03/11/17 17:00 132 34 133/62 (85) 99 03/11/17 17:00 132 34 133/62 (85) 99 03/11/17 16:00 84 20 101/51 (68) 99 03/11/17 16:00 84 20 101/51 (68) 99 03/11/17 15:00 99.0 90 24 115/62 (79) 98 03/11/17 14:00 131/68 (89) 97 03/11/17 14:00 104 20 131/68 (89) 97 03/11/17 13:00 150 44 154/69 (97) 93 I/O 03/11/17 03/11/17 03/11/17 03/12/17 03/12/17 03/12/17 06:59 14:59 22:59 06:59 14:59 22:59 Intake Total 1050 ml 909 ml 1027 ml Output Total 700 ml 820 ml 475 ml Balance 350 ml 89 ml 552 ml IV Total 100 ml 100 ml Tube Feeding 550 ml 509 ml 527 ml Other 400 ml 400 ml 400 ml Output Urine Total 700 ml 820 ml 475 ml Result Diagram: 03/12/1742403/12/17 0425 Objective Remarks GENERAL: NAD, A&Ox0 HEAD: Normocephalic. NECK: Supple, trachea midline. No lymphadenopathy. Tracheostomy present. EYES: No scleral icterus. No injection or drainage. CARDIOVASCULAR: Regular rate and rhythm without murmurs, gallops, or rubs. RESPIRATORY: Breath sounds equal bilaterally. No accessory muscle use. GASTROINTESTINAL: Abdomen soft, non-tender, nondistended. MUSCULOSKELETAL: No cyanosis, or edema. Global retractions SKIN: Warm and dry. NEURO: No focal neurological deficitis. A/P Problem List: (1) Seizure disorder ICD Code: G40.909 - Epilepsy, unspecified, not intractable, without status epilepticus (2) Chronic respiratory failure ICD Code: J96.10 - Chronic respiratory failure, unspecified whether with hypoxia or hypercapnia (3) History of DVT (deep vein thrombosis) ICD Code: Z86.718 - Personal history of other venous thrombosis and embolism Status: Acute (4) Hypoxic encephalopathy ICD Code: G93.1 - Anoxic brain damage, not elsewhere classified Status: Acute (5) Permanent vegetative state ICD Code: R40.3 - Persistent vegetative state Status: Acute (6) Hypertension ICD Code: I10 - Essential (primary) hypertension Status: Acute (7) Leukocytosis ICD Code: D72.829 - Elevated white blood cell count, unspecified Status: Acute (8) Febrile illness ICD Code: R50.9 - Fever, unspecified Status: Acute Assessment and Plan Assessment and plan 31-year-old male admitted with pneumonia and sepsis with a chronic baseline of persistent vegetative state and chronic respiratory failure. Clonidine started to control blood pressures which are not controlled today. Follow blood pressures. Persistent vegetative state History of anoxic brain injury Continue supportive care Once improved he'll transition back to his [facility] facility Sepsis Fever Related to pneumonia Resolved Pneumonia Chronic respiratory failure Chronic tracheostomy Continue cefepime Pulmonology following Continue oxygen supplementation via trach collar as needed Tracheostomy maintenance Tachycardia Improved Continue on Lopressor Hypertension Not controlled today Start as needed clonidine Continue Lopressor, hydralazine, Norvasc Monitor on telemetry Seizure disorder Continue lorazepam Continue Keppra DVT prophylaxis SCDs Eliquis Discharge Planning Changes back to [facility] facility when patient stabilizes Problem Qualifiers (1) Leukocytosis: Lamonte Mckeon MD Mar 12, 2017 12:21
[2017-03-12] MEDS ORDERED: cloNIDine HCL 0.1 MG TAB PO PRN (12:30)
[2017-03-12] MEDS: METOCLOPRAMIDE HCL 10 MG TAB PEG SCH (17:36)
[2017-03-13] VITALS (10 sets, daily range): BP systolic 97–151; BP diastolic 46–84; PULSE 54–111; RESP 17–26; TEMP 98–99.2; O2SAT 99–100
[2017-03-13] MEDS: CHLORHEXIDINE GLUCONATE 2 % 1 PACK (2 CLOTHS) TOP SCH (04:00)
[2017-03-13] MEDS: HYOSCYAMINE 0.125 MG TAB PO SCH ×6 (04:11→20:38)
[2017-03-13] MEDS: CEFEPIME INJ 1,000 MG in SODIUM CHLORIDE 0.9% INJ 100 ML IV SCH ×2 (04:11→12:43)
[2017-03-13] MEDS: hydrALAZINE HCL 50 MG TAB PO SCH ×3 (05:45→21:18)
[2017-03-13] MEDS: FREE WATER G-TUBE SCH ×5 (05:46→22:59)
[2017-03-13] MEDS: INSULIN ASPART SUPPLEMENTAL SCALE SQ SCH ×4 (05:46→18:00)
[2017-03-13] MEDS: DOCUSATE SODIUM 50 MG/SENNA 8.6 MG TAB PO SCH ×2 (08:34→20:38)
[2017-03-13] MEDS: PANTOPRAZOLE SODIUM 40 MG VIAL IV SCH (08:34)
[2017-03-13] MEDS: oxyCODONE/ACETAMINOPHEN 5 MG/325 MG TAB PO PRN (08:34)
[2017-03-13] MEDS: BACLOFEN 10 MG TAB G-TUBE SCH ×3 (08:35→18:22)
[2017-03-13] MEDS: LORATADINE 10 MG TAB G-TUBE SCH (08:35)
[2017-03-13] MEDS: levETIRAcetam 500 MG/5 ML UDC G-TUBE SCH ×2 (08:35→20:39)
[2017-03-13] MEDS: METOCLOPRAMIDE HCL 10 MG TAB PEG SCH ×3 (08:35→18:20)
[2017-03-13] MEDS: APIXABAN 5 MG TABLET G-TUBE SCH ×2 (08:43→20:38)
[2017-03-13] MEDS: ARTIFICIAL TEARS OPTH SOLN 15 ML BTL EACH EYE SCH ×3 (08:43→18:20)
[2017-03-13] MEDS: CHLORHEXIDINE 0.12% (ORAL KIT) 15 ML CUP MT SCH ×2 (08:45→20:40)
[2017-03-13] MEDS: SODIUM CHLORIDE 0.9% FLUSH 10 ML FLUSH IV FLUSH SCH ×2 (08:45→20:39)
[2017-03-13] MEDS: ATROPINE SULFATE 1% OPHT SOLN 5 ML BTL SL PRN ×2 (08:55→20:39)
[2017-03-13] MEDS: METOPROLOL TARTRATE 25 MG TAB PO SCH ×2 (09:00→20:38)
--- NOTE | 2017-03-13 11:35 | HHI.PR ---
Subjective Remarks No worsening compared to yesterday. Patient cannot give history. Chronic vegetative state is present. Considering outpatient cefepime. Objective Vital Signs Date Time Temp Pulse Resp B/P (MAP) Pulse Ox O2 Delivery O2 Flow Rate FiO2 03/13/17 08:00 99 Simple Mask 28 03/13/17 04:35 99 Trach Collar 28 03/13/17 04:00 98.0 71 20 151/73 (99) 100 03/13/17 04:00 71 03/13/17 00:00 98.1 95 26 120/69 (86) 99 03/13/17 00:00 111 03/12/17 20:00 28 Trach Collar 03/12/17 20:00 98.9 69 17 117/54 (75) 100 03/12/17 20:00 69 03/12/17 19:41 100 Trach Collar 6.00 28 03/12/17 16:00 99.4 90 19 119/63 (81) 100 03/12/17 16:00 90 03/12/17 12:00 99.1 122 30 179/85 (116) 98 03/12/17 12:00 122 I/O 03/12/17 03/12/17 03/12/17 03/13/17 03/13/17 03/13/17 06:59 14:59 22:59 06:59 14:59 22:59 Intake Total 1027 ml 100 ml 1186 ml 1226 ml Output Total 475 ml 400 ml 250 ml Balance 552 ml 100 ml 786 ml 976 ml IV Total 100 ml 100 ml Tube Feeding 527 ml 666 ml 626 ml Other 400 ml 520 ml 600 ml Output Urine Total 475 ml 400 ml 250 ml # Voids 4 # Bowel Movements 2 1 Result Diagram: 03/12/1742403/12/17424 Objective Remarks GENERAL: NAD, A&Ox0 HEAD: Normocephalic. NECK: Supple, trachea midline. No lymphadenopathy. Tracheostomy present. EYES: No scleral icterus. No injection or drainage. CARDIOVASCULAR: Regular rate and rhythm without murmurs, gallops, or rubs. RESPIRATORY: Breath sounds equal bilaterally. No accessory muscle use. GASTROINTESTINAL: Abdomen soft, non-tender, nondistended. MUSCULOSKELETAL: No cyanosis, or edema. Global retractions SKIN: Warm and dry. NEURO: No focal neurological deficitis. A/P Problem List: (1) Seizure disorder ICD Code: G40.909 - Epilepsy, unspecified, not intractable, without status epilepticus (2) Chronic respiratory failure ICD Code: J96.10 - Chronic respiratory failure, unspecified whether with hypoxia or hypercapnia (3) History of DVT (deep vein thrombosis) ICD Code: Z86.718 - Personal history of other venous thrombosis and embolism Status: Acute (4) Hypoxic encephalopathy ICD Code: G93.1 - Anoxic brain damage, not elsewhere classified Status: Acute (5) Permanent vegetative state ICD Code: R40.3 - Persistent vegetative state Status: Acute (6) Hypertension ICD Code: I10 - Essential (primary) hypertension Status: Acute (7) Leukocytosis ICD Code: D72.829 - Elevated white blood cell count, unspecified Status: Acute (8) Febrile illness ICD Code: R50.9 - Fever, unspecified Status: Acute Assessment and Plan Assessment and plan 31-year-old male admitted with pneumonia and sepsis with a chronic baseline of persistent vegetative state and chronic respiratory failure. Improved blood pressure control. Continue as needed clonidine. Monitor BMP and CBC. Labs ordered. Continue cefepime. Discharge on IV cefepime is under consideration. Persistent vegetative state History of anoxic brain injury Continue supportive care Once improved he'll transition back to his nursing home facility Sepsis Fever Related to pneumonia Resolved Pneumonia Chronic respiratory failure Chronic tracheostomy Continue cefepime Pulmonology following Continue oxygen supplementation via trach collar as needed Tracheostomy maintenance Tachycardia Improved Continue on Lopressor Hypertension Not controlled today Start as needed clonidine Continue Lopressor, hydralazine, Norvasc Monitor on telemetry Seizure disorder Continue lorazepam Continue Keppra DVT prophylaxis SCDs Eliquis Discharge Planning Changes back to nursing home facility when patient stabilizes Problem Qualifiers (1) Leukocytosis: Lamonte Mckeon MD Mar 13, 2017 11:35
--- NOTE | 2017-03-13 15:08 | HHI.PR ---
Subjective Remarks alert OFF the ventilator NO DISTRESS Objective Vital Signs Date Time Temp Pulse Resp B/P (MAP) Pulse Ox O2 Delivery O2 Flow Rate FiO2 03/13/17 08:00 99 Simple Mask 28 03/13/17 04:35 99 Trach Collar 28 03/13/17 04:00 98.0 71 20 151/73 (99) 100 03/13/17 04:00 71 03/13/17 00:00 98.1 95 26 120/69 (86) 99 03/13/17 00:00 111 03/12/17 20:00 28 Trach Collar 03/12/17 20:00 98.9 69 17 117/54 (75) 100 03/12/17 20:00 69 03/12/17 19:41 100 Trach Collar 6.00 28 03/12/17 16:00 99.4 90 19 119/63 (81) 100 03/12/17 16:00 90 I/O 03/12/17 03/12/17 03/12/17 03/13/17 03/13/17 03/13/17 06:59 14:59 22:59 06:59 14:59 22:59 Intake Total 1027 ml 100 ml 1186 ml 1226 ml Output Total 475 ml 400 ml 250 ml Balance 552 ml 100 ml 786 ml 976 ml IV Total 100 ml 100 ml Tube Feeding 527 ml 666 ml 626 ml Other 400 ml 520 ml 600 ml Output Urine Total 475 ml 400 ml 250 ml # Voids 4 # Bowel Movements 2 1 Result Diagram: 03/12/1742403/12/17424 Objective Remarks GENERAL: SKIN: Warm and dry. HEAD: Atraumatic. Normocephalic. EYES: Pupils equal and round. No scleral icterus. No injection or drainage. ENT: No nasal bleeding or discharge. Mucous membranes pink and moist. NECK: Trachea midline. No JVD., tracheostomy in place CARDIOVASCULAR: Regular rate and rhythm. RESPIRATORY: No accessory muscle use. Clear to auscultation. Breath sounds equal bilaterally. GASTROINTESTINAL: Abdomen soft, non-tender, nondistended. Hepatic and splenic margins not palpable. MUSCULOSKELETAL: Extremities without clubbing, cyanosis, or edema. No obvious deformities. NEUROLOGICAL: Awake and alert. No obvious cranial nerve deficits. Motor grossly within normal limits. Five out of 5 muscle strength in the arms and legs. Normal speech. PSYCHIATRIC: Appropriate mood and affect; insight and judgment normal. Medications and IVs GENERAL: SKIN: Warm and dry. HEAD: Atraumatic. Normocephalic. EYES: Pupils equal and round. No scleral icterus. No injection or drainage. ENT: No nasal bleeding or discharge. Mucous membranes pink and moist. NECK: Trachea midline. No JVD. TRACHEOSTOMY IN PLACE CARDIOVASCULAR: Regular rate and rhythm. RESPIRATORY: No accessory muscle use. Clear to auscultation. Breath sounds equal bilaterally. GASTROINTESTINAL: Abdomen soft, non-tender, nondistended. Hepatic and splenic margins not palpable. MUSCULOSKELETAL: Extremities without clubbing, cyanosis, or edema. No obvious deformities. NEUROLOGICAL: Awake and alert. No obvious cranial nerve deficits. Motor grossly within normal limits. Five out of 5 muscle strength in the arms and legs. Normal speech. PSYCHIATRIC: Appropriate mood and affect; insight and judgment normal. Assessment and Plan Assessment and Plan respiratory failue encephalopathy s/p tracheostomy sepsis hemoptysis , resolved VEGETATIVE STATE plan O2 NEEDED pulmonary toilet WILL SIGN OFF , PLEASE CALL Justin Piper MD Mar 13, 2017 15:08
[2017-03-14] VITALS (9 sets, daily range): BP systolic 119–141; BP diastolic 60–76; PULSE 64–136; RESP 18–38; TEMP 98.3–99.4; O2SAT 98–100
[2017-03-14] MEDS: HYOSCYAMINE 0.125 MG TAB PO SCH ×6 (01:49→20:23)
[2017-03-14] MEDS: LORazepam 1 MG TAB G-TUBE PRN (01:49)
[2017-03-14] MEDS: CHLORHEXIDINE GLUCONATE 2 % 1 PACK (2 CLOTHS) TOP SCH (04:00)
[2017-03-14] MEDS ORDERED: METOPROLOL TARTRATE 5 MG/5 ML VIAL IV PUSH ONE (05:00)
[2017-03-14] MEDS: FREE WATER G-TUBE SCH ×3 (05:16→17:02)
[2017-03-14] MEDS: hydrALAZINE HCL 50 MG TAB PO SCH ×3 (05:17→20:22)
[2017-03-14] MEDS: INSULIN ASPART SUPPLEMENTAL SCALE SQ SCH ×4 (05:29→17:02)
[2017-03-14] MEDS: CHLORHEXIDINE 0.12% (ORAL KIT) 15 ML CUP MT SCH ×2 (08:40→20:21)
[2017-03-14] MEDS: DOCUSATE SODIUM 50 MG/SENNA 8.6 MG TAB PO SCH ×2 (08:41→20:23)
[2017-03-14] MEDS: levETIRAcetam 500 MG/5 ML UDC G-TUBE SCH ×2 (08:41→20:23)
[2017-03-14] MEDS: PANTOPRAZOLE SODIUM 40 MG VIAL IV SCH (08:41)
[2017-03-14] MEDS: METOCLOPRAMIDE HCL 10 MG TAB PEG SCH ×3 (08:42→17:02)
[2017-03-14] MEDS: APIXABAN 5 MG TABLET G-TUBE SCH ×2 (08:42→20:22)
[2017-03-14] MEDS: BACLOFEN 10 MG TAB G-TUBE SCH ×3 (08:42→17:02)
[2017-03-14] MEDS: LORATADINE 10 MG TAB G-TUBE SCH (08:42)
[2017-03-14] MEDS: METOPROLOL TARTRATE 25 MG TAB PO SCH ×2 (08:42→20:22)
[2017-03-14] MEDS: SODIUM CHLORIDE 0.9% FLUSH 10 ML FLUSH IV FLUSH SCH ×2 (08:43→20:23)
[2017-03-14] MEDS: ARTIFICIAL TEARS OPTH SOLN 15 ML BTL EACH EYE SCH ×3 (08:43→17:02)
[2017-03-14 08:48] LABS: CHLORIDE 106 MEQ/L (98-107); POTASSIUM 4.3 MEQ/L (3.5-5.1); SODIUM (NA) 140 MEQ/L (136-145)
[2017-03-14 08:49] LABS: AUTOMATED NEUTROPHIL # 6.2 TH/MM3 (1.8-7.7); BASOPHIL # 0.2 TH/MM3 (0-0.2); BASOPHIL % 2.6 % (0.0-2.0); EOSINOPHIL # 0.1 TH/MM3 (0-0.4); EOSINOPHIL % 1.4 % (0.0-4.0); HEMATOCRIT 37.7 % (39.0-51.0); HEMO FLAGS DIFF FINAL; LYMPHOCYTE # 1.4 TH/MM3 (1.0-4.8); MEAN CELL VOLUME 91.8 FL (80.0-100.0); MEAN CORPUSCULAR HEMOGLOBIN 30.3 PG (27.0-34.0); PLATELET COUNT 202 TH/MM3 (150-450); RED BLOOD COUNT 4.11 MIL/MM3 (4.50-5.90); RED CELL DISTRIBUTION WIDTH 12.3 % (11.6-17.2); WHITE BLOOD COUNT 8.4 TH/MM3 (4.0-11.0)
[2017-03-14 08:53] LABS: ANION GAP 9 MEQ/L (5-15); BICARBONATE 24.8 MEQ/L (21.0-32.0); BLOOD UREA NITROGEN 16 MG/DL (7-18)
[2017-03-14 08:56] LABS: ALT (GPT) 63 U/L (12-78); AST (GOT) 34 U/L (15-37); GLOMERULAR FILTRATION RATE 130 ML/MIN (>89)
[2017-03-14 08:58] LABS: TOTAL BILIRUBIN ADULT 0.3 MG/DL (0.2-1.0)
[2017-03-14 08:59] LABS: ALKALINE PHOSPHATASE 89 U/L (45-117)
[2017-03-14] MEDS ORDERED: AMLO10 PEG (11:03)
[2017-03-14] MEDS ORDERED: HYDR-3800 PO (11:03)
[2017-03-14] MEDS ORDERED: CLON.1 PO (11:03)
--- NOTE | 2017-03-14 11:23 | HHI.DS ---
Discharge Summary Admission Date Feb 21, 2017 at 04:50 Discharge Date: Mar 14, 2017 Admitting Diagnosis sepsis, tracheitis, hypoxic encephalopathy (1) Permanent vegetative state ICD Code: R40.3 - Persistent vegetative state Diagnosis: Principal Status: Acute (2) Sepsis ICD Code: A41.9 - Sepsis, unspecified organism Diagnosis: Principal Status: Acute (3) Tachycardia ICD Code: R00.0 - Tachycardia, unspecified Diagnosis: Principal (4) Chronic respiratory failure ICD Code: J96.10 - Chronic respiratory failure, unspecified whether with hypoxia or hypercapnia Diagnosis: Principal (5) Seizure disorder ICD Code: G40.909 - Epilepsy, unspecified, not intractable, without status epilepticus Diagnosis: Principal (6) Fever ICD Code: R50.9 - Fever, unspecified Diagnosis: Principal Procedures Tracheostomy care Brief History - From Admission 31-year-old male. Resident of [facility] or rehabilitation. Past medical history includes anoxic brain injury 03/21 Temovate due to Haldol administration, recurrent aspiration pneumoniaMDRO positive MRSA positive ESBL positive Escherichia coli in past, hypertension, dyslipidemia, history of pseudocyst/necrotizing, diabetes mellitus presents with a one-week history of nausea/vomiting according to his mother at this nursing facility. He was also recently diagnosed with a fever started on amoxicillin Upon presentation to the ED, patient was noted of temperature 100.2. Leukocytosis 14.5 and elevated transaminases. Lactic acid 4.1. Received 3 L normal saline. Start empirically on piperacillin/tazobactam and vancomycin. Pancultured. Chest x-ray revealed no acute findings. CT abdomen/pelvis and amylase lipase all pending. Upon presentation the floor, patient was tachycardic in acute cluster distress. Tracheostomy was exchanged for an 8.0-6.0 Shiley. Patient is currently sedated on the ventilator on Midazolam And fentanyl drips. CBC/BMP: 03/14/17 0830 03/14/17 0830 Significant Findings Laboratory Tests Test 03/12/17 04:25 03/12/17 06:48 03/14/17 08:30 Red Blood Count 4.26 MIL/MM3 (4.50-5.90) 4.11 MIL/MM3 (4.50-5.90) Hemoglobin 12.9 GM/DL (13.0-17.0) 12.4 GM/DL (13.0-17.0) Mean Platelet Volume 12.3 FL (7.0-11.0) 11.4 FL (7.0-11.0) Blood Urea Nitrogen 23 MG/DL (7-18) Chloride Level 109 MEQ/L (98-107) Urine Protein 30 mg/dL (NEG-TRACE) Hematocrit 37.7 % (39.0-51.0) Neutrophils (%) (Auto) 73.0 % (16.0-70.0) Basophils (%) (Auto) 2.6 % (0.0-2.0) Hospital Course Mr. Andersen is a 31-year-old male. At baseline he is in a chronic vegetative state and has been in this state for years. He was brought to the hospital secondary to sepsis and this was found to be related to pneumonia. Pseudomonas was cultured and patient was treated with cefepime. He completed treatment. After stopping treatment he has been monitored for any recurrence of infectious signs. She also had his respiratory support wean back to his prior baseline of a trach collar. He has been doing well. Pulmonology has sign of service and patient is now at his prior baseline. Adjustments have been made in his blood pressure medications. Hydralazine and amlodipine have been addressed treatments. As needed clonidine is also present treatment. Blood pressures are currently stable and controlled. Medically stable for discharge to prior care facility today. Pt Condition on Discharge: Stable Discharge Disposition: Rehab Inpatient Discharge Time: > 30 minutes Discharge Instructions DIET: Follow Instructions for: On Tube Feeding Activities you can perform: Continue Bedrest Follow up Referrals: PCP Follow-up - 1 Week New Medications: Amlodipine (Norvasc) 10 Mg Tab 10 MG PEG DAILY for Blood Pressure Management, #30 TAB Clonidine (Catapres) 0.1 Mg Tab 0.1 MG PO Q6H PRN for SBP>160, DBP>90, #90 TAB Hydralazine HCl (Hydralazine HCl) 50 Mg Tablet 50 MG PO Q8HR for Blood Pressure Management, #90 TAB Continued Medications: Acetaminophen (Tylenol) 325 Mg Tab 650 MG PO Q6H PRN for INCREASED TEMPERATURE, TAB 0 Refills Apixaban (Eliquis) 5 Mg Tab 5 MG G-TUBE BID for Blood Clot Prevention, #60 TAB 0 Refills Atropine Opth Drops (Atropine Opth Drops) 1% Soln 1 DROP SL Q12HR PRN for For mild/moderate secretions, #2 ML 0 Refills Baclofen (Baclofen) 20 Mg Tab 20 MG G-TUBE TID for Muscle Spasm, TAB [address] (Bisacodyl EC) 5 Mg Tabec 5 MG PO DAILY PRN for CONSTIPATION, TAB 0 Refills Ciprofloxacin Opth Drops (Ciloxan Opth Drops) 0.3% Soln 1 DROP EACH EYE Q4H for EYE INFECTION, #1 BOTTLE 0 Refills Famotidine (Pepcid) 20 Mg Tab 40 MG G-TUBE DAILY, #60 TAB 0 Refills Guaifenesin Liq (Guaifenesin Liq) 100 mg/5 ML Soln 100 MG PO Q4H PRN for COUGH, #1 BOTTLE 0 Refills Hyoscyamine (Hyoscyamine) 0.125 Mg Tab 0.125 MG PO Q4H for Gastrointestinal disorders, TAB 0 Refills Ipratropium-Albuterol Neb (Duoneb) 0.5-2.5 Mg/3 Ml Neb 1 NEBULE INH Q4HR NEB for SHORTNESS OF BREATH, #120 NEBULE 0 Refills Ipratropium-Albuterol Neb (Duoneb) 0.5-2.5 Mg/3 Ml Neb 1 NEBULE INH DAILY for Breathing Treatment, #30 NEBULE 0 Refills Levetiracetam (Keppra) 1,000 Mg Tab 1000 MG G-TUBE BID for Control Seizures, #60 TAB 0 Refills Loratadine Liq (Claritin Liq) 5 Mg/5 Ml Liq 5 MG G-TUBE DAILY for Allergy Management, #1 BOTTLE 0 Refills Lorazepam (Ativan) 1 Mg Tab 1 MG G-TUBE Q4H PRN for for severe anxiety or dyspnea, TAB 0 Refills Lorazepam (Ativan) 0.5 Mg Tab 0.5 MG PO DAILY PRN for ANXIETY AND/OR AGITATION, TAB 0 Refills Metoprolol Tartrate (Metoprolol Tartrate) 25 Mg Tab 25 MG PO BID PRN for HR>110, #60 TAB 0 Refills Oxycodone-Acetaminophen (Oxycodone-Acetaminophen) 5-325 mg Tab 1 TAB PO Q6H PRN for PAIN, TAB 0 Refills Potassium Chloride Liq (Potassium Chloride Liq) 20 Meq/15 Ml Soln 20 MEQ PO BID for Electrolyte Replacement, ML 0 Refills Lamonte Mckeon MD Mar 14, 2017 11:22
--- NOTE | 2017-03-14 14:10 | HHI.PR ---
Subjective Remarks Discharge was planned for today. Pulmonology has signed off and antibiotics are discontinued. Mother has requested further monitoring (declines discharge) due to the fact that last time antibiotics were stopped, during this hospitalization, he had developed a fever shortly after. Objective Vital Signs Date Time Temp Pulse Resp B/P (MAP) Pulse Ox O2 Delivery O2 Flow Rate FiO2 03/14/17 13:17 64 03/14/17 13:17 98.3 64 19 119/70 (86) 100 03/14/17 09:17 98.9 76 21 120/70 (87) 98 03/14/17 09:17 76 03/14/17 08:00 97 T-Piece 28 03/14/17 04:00 136 03/14/17 04:00 99.3 133 38 133/76 (95) 99 03/14/17 00:00 99.4 90 18 120/60 (80) 99 03/14/17 00:00 90 03/13/17 20:00 100 Trach Collar 28 03/13/17 20:00 99.2 54 18 131/84 (100) 100 03/13/17 20:00 86 03/13/17 19:28 100 Trach Collar 28 03/13/17 16:00 72 17 101/59 (73) 100 03/13/17 16:00 72 I/O 03/13/17 03/13/17 03/13/17 03/14/17 03/14/17 03/14/17 07:00 15:00 23:00 07:00 15:00 23:00 Intake Total 1226 ml 100 ml 1285 ml 968 ml Output Total 250 ml 652 ml 500 ml Balance 976 ml 100 ml 633 ml 468 ml IV Total 100 ml Tube Feeding 626 ml 568 ml Autotransfusion 685 ml Other 600 ml 600 ml 400 ml Output Urine Total 250 ml 650 ml 500 ml Stool Total 2 ml # Voids 4 # Bowel Movements 1 0 Result Diagram: 03/14/1782903/14/17 0830 Objective Remarks GENERAL: NAD, A&Ox0 HEAD: Normocephalic. NECK: Supple, trachea midline. No lymphadenopathy. Tracheostomy present. EYES: No scleral icterus. No injection or drainage. CARDIOVASCULAR: Regular rate and rhythm without murmurs, gallops, or rubs. RESPIRATORY: Breath sounds equal bilaterally. No accessory muscle use. GASTROINTESTINAL: Abdomen soft, non-tender, nondistended. MUSCULOSKELETAL: No cyanosis, or edema. Global retractions SKIN: Warm and dry. NEURO: No focal neurological deficitis. A/P Problem List: (1) Seizure disorder ICD Code: G40.909 - Epilepsy, unspecified, not intractable, without status epilepticus (2) Chronic respiratory failure ICD Code: J96.10 - Chronic respiratory failure, unspecified whether with hypoxia or hypercapnia (3) History of DVT (deep vein thrombosis) ICD Code: Z86.718 - Personal history of other venous thrombosis and embolism Status: Acute (4) Hypoxic encephalopathy ICD Code: G93.1 - Anoxic brain damage, not elsewhere classified Status: Acute (5) Permanent vegetative state ICD Code: R40.3 - Persistent vegetative state Status: Acute (6) Hypertension ICD Code: I10 - Essential (primary) hypertension Status: Acute (7) Leukocytosis ICD Code: D72.829 - Elevated white blood cell count, unspecified Status: Acute (8) Febrile illness ICD Code: R50.9 - Fever, unspecified Status: Acute Assessment and Plan Assessment and plan 31-year-old male admitted with pneumonia and sepsis with a chronic baseline of persistent vegetative state and chronic respiratory failure. Improved blood pressure control. Continue as needed PRN Clonidine and scheduled Hydralazine and scheduled amlodipine. Follow for fever, status post discontinuation of antibiotics 03/13/17. Persistent vegetative state History of anoxic brain injury Continue supportive care Once improved he'll transition back to his [facility] facility Sepsis Fever Related to pneumonia Resolved Pneumonia Chronic respiratory failure Chronic tracheostomy Continue cefepime Pulmonology following Continue oxygen supplementation via trach collar as needed Tracheostomy maintenance Tachycardia Improved Continue on Lopressor Hypertension Not controlled today Start as needed clonidine Continue Lopressor, hydralazine, Norvasc Monitor on telemetry Seizure disorder Continue lorazepam Continue Keppra DVT prophylaxis SCDs Eliquis Discharge Planning Changes back to [facility] facility when patient stabilizes Problem Qualifiers (1) Leukocytosis: Lamonte Mckeon MD Mar 14, 2017 14:10
[2017-03-15] VITALS (11 sets, daily range): BP systolic 123–147; BP diastolic 64–76; PULSE 89–120; RESP 18–27; TEMP 97.7–100.3; O2SAT 97–100
[2017-03-15] MEDS: HYOSCYAMINE 0.125 MG TAB PO SCH ×6 (01:28→20:38)
[2017-03-15] MEDS: CHLORHEXIDINE GLUCONATE 2 % 1 PACK (2 CLOTHS) TOP SCH (04:00)
[2017-03-15] MEDS: hydrALAZINE HCL 50 MG TAB PO SCH ×3 (05:03→23:06)
[2017-03-15] MEDS: INSULIN ASPART SUPPLEMENTAL SCALE SQ SCH ×5 (06:00→23:09)
[2017-03-15] MEDS: FREE WATER G-TUBE SCH ×5 (06:00→23:09)
[2017-03-15] MEDS: METOPROLOL TARTRATE 25 MG TAB PO SCH ×2 (09:37→20:38)
[2017-03-15] MEDS: APIXABAN 5 MG TABLET G-TUBE SCH ×2 (09:38→20:38)
[2017-03-15] MEDS: METOCLOPRAMIDE HCL 10 MG TAB PEG SCH ×3 (09:38→17:46)
[2017-03-15] MEDS: BACLOFEN 10 MG TAB G-TUBE SCH ×3 (09:39→17:46)
[2017-03-15] MEDS: LORATADINE 10 MG TAB G-TUBE SCH (09:40)
[2017-03-15] MEDS: DOCUSATE SODIUM 50 MG/SENNA 8.6 MG TAB PO SCH ×2 (09:40→20:38)
[2017-03-15] MEDS: PANTOPRAZOLE SODIUM 40 MG VIAL IV SCH (09:41)
[2017-03-15] MEDS: levETIRAcetam 500 MG/5 ML UDC G-TUBE SCH ×2 (09:41→20:39)
[2017-03-15] MEDS: CHLORHEXIDINE 0.12% (ORAL KIT) 15 ML CUP MT SCH ×2 (09:42→20:37)
[2017-03-15] MEDS: ARTIFICIAL TEARS OPTH SOLN 15 ML BTL EACH EYE SCH ×3 (09:42→17:46)
[2017-03-15] MEDS: SODIUM CHLORIDE 0.9% FLUSH 10 ML FLUSH IV FLUSH SCH ×2 (09:46→20:39)
[2017-03-15] MEDS: ATROPINE SULFATE 1% OPHT SOLN 5 ML BTL SL PRN (09:47)
--- NOTE | 2017-03-15 11:28 | HHI.PR ---
Subjective Remarks No fevers today. Patient unable to provide any history. He appears to be at baseline. Continue to monitor for fevers. Objective Vital Signs Date Time Temp Pulse Resp B/P (MAP) Pulse Ox O2 Delivery O2 Flow Rate FiO2 03/15/17 07:51 98 Trach Collar 7.00 28 03/15/17 04:00 98.4 120 25 128/64 (85) 98 03/15/17 04:00 120 03/15/17 00:00 104 03/15/17 00:00 98.7 96 26 140/76 (97) 97 03/14/17 21:19 100 Trach Collar 6.00 28 03/14/17 20:00 100 Aerosol Mask 28 03/14/17 20:00 99.1 84 21 141/74 (96) 100 03/14/17 20:00 84 03/14/17 17:17 98.5 106 26 130/68 (88) 100 03/14/17 16:00 90 03/14/17 13:17 64 03/14/17 13:17 98.3 64 19 119/70 (86) 100 I/O 03/14/17 03/14/17 03/14/17 03/15/17 03/15/17 03/15/17 07:00 15:00 23:00 07:00 15:00 23:00 Intake Total 968 ml 1000 ml 1031 ml Output Total 500 ml 950 ml 425 ml Balance 468 ml 50 ml 606 ml Tube Feeding 568 ml 600 ml 1031 ml Other 400 ml 400 ml Output Urine Total 500 ml 950 ml 425 ml # Bowel Movements 0 0 Result Diagram: 03/14/1730 03/14/17 0830 Objective Remarks GENERAL: NAD, A&Ox0 HEAD: Normocephalic. NECK: Supple, trachea midline. No lymphadenopathy. Tracheostomy present. EYES: No scleral icterus. No injection or drainage. CARDIOVASCULAR: Regular rate and rhythm without murmurs, gallops, or rubs. RESPIRATORY: Breath sounds equal bilaterally. No accessory muscle use. GASTROINTESTINAL: Abdomen soft, non-tender, nondistended. MUSCULOSKELETAL: No cyanosis, or edema. Global retractions SKIN: Warm and dry. NEURO: No focal neurological deficitis. A/P Problem List: (1) Seizure disorder ICD Code: G40.909 - Epilepsy, unspecified, not intractable, without status epilepticus (2) Chronic respiratory failure ICD Code: J96.10 - Chronic respiratory failure, unspecified whether with hypoxia or hypercapnia (3) History of DVT (deep vein thrombosis) ICD Code: Z86.718 - Personal history of other venous thrombosis and embolism Status: Acute (4) Hypoxic encephalopathy ICD Code: G93.1 - Anoxic brain damage, not elsewhere classified Status: Acute (5) Permanent vegetative state ICD Code: R40.3 - Persistent vegetative state Status: Acute (6) Hypertension ICD Code: I10 - Essential (primary) hypertension Status: Acute (7) Leukocytosis ICD Code: D72.829 - Elevated white blood cell count, unspecified Status: Acute (8) Febrile illness ICD Code: R50.9 - Fever, unspecified Status: Acute Assessment and Plan Assessment and plan 31-year-old male admitted with pneumonia and sepsis with a chronic baseline of persistent vegetative state and chronic respiratory failure. Improved blood pressure control. Continue to monitor for fevers after stopping antibiotics. We'll monitor for 24 hours more. Persistent vegetative state History of anoxic brain injury Continue supportive care Once improved he'll transition back to his assisted facility Sepsis Fever Related to pneumonia Resolved Pneumonia Chronic respiratory failure Chronic tracheostomy Continue cefepime Pulmonology following Continue oxygen supplementation via trach collar as needed Tracheostomy maintenance Tachycardia Improved Continue on Lopressor Hypertension Not controlled today Start as needed clonidine Continue Lopressor, hydralazine, Norvasc Monitor on telemetry Seizure disorder Continue lorazepam Continue Keppra DVT prophylaxis SCDs Eliquis Discharge Planning Changes back to assisted facility when patient stabilizes Problem Qualifiers (1) Leukocytosis: Lamonte Mckeon MD Mar 15, 2017 11:28
[2017-03-15] MEDS ORDERED: PADIMATE (CHAPSTICK) 4.5 GM TUBE TOPICAL PRN (11:30)
[2017-03-15] MEDS: ACETAMINOPHEN 650 MG/20.3 ML UDC PEG PRN (13:03)
[2017-03-16] VITALS (18 sets, daily range): BP systolic 98–136; BP diastolic 49–87; PULSE 52–112; RESP 10–23; TEMP 98.7–100; O2SAT 98–100
[2017-03-16] MEDS: HYOSCYAMINE 0.125 MG TAB PO SCH ×6 (00:43→22:17)
[2017-03-16] MEDS: ATROPINE SULFATE 1% OPHT SOLN 5 ML BTL SL PRN ×3 (00:43→15:41)
[2017-03-16] MEDS: CHLORHEXIDINE GLUCONATE 2 % 1 PACK (2 CLOTHS) TOP SCH (03:11)
[2017-03-16] MEDS: FREE WATER G-TUBE SCH ×3 (06:00→15:42)
[2017-03-16] MEDS: INSULIN ASPART SUPPLEMENTAL SCALE SQ SCH ×3 (06:00→18:00)
[2017-03-16] MEDS: hydrALAZINE HCL 50 MG TAB PO SCH ×3 (06:20→22:17)
[2017-03-16] MEDS: CHLORHEXIDINE 0.12% (ORAL KIT) 15 ML CUP MT SCH ×2 (08:00→22:57)
[2017-03-16] MEDS: ARTIFICIAL TEARS OPTH SOLN 15 ML BTL EACH EYE SCH ×3 (09:00→18:29)
[2017-03-16] MEDS: SODIUM CHLORIDE 0.9% FLUSH 10 ML FLUSH IV FLUSH SCH ×2 (09:00→22:17)
--- NOTE | 2017-03-16 10:35 | HHI.PR ---
Subjective Remarks No recurrence of fevers thus far. Patient is about 36 hours status post stopping IV antibiotics. We'll continue to monitor for 48 hours. If fever free of 48 hours (tonight) then he can be reconsidered for discharge. Objective Vital Signs Date Time Temp Pulse Resp B/P (MAP) Pulse Ox O2 Delivery O2 Flow Rate FiO2 03/16/17 07:16 100 Blow-by 6.00 28 03/16/17 04:00 96 03/16/17 04:00 98.8 95 17 136/74 (94) 03/16/17 00:00 99.3 71 23 105/49 (67) 100 03/16/17 00:00 71 03/15/17 20:00 100 T-Piece 03/15/17 20:00 97.7 90 18 123/65 (84) 100 03/15/17 20:00 90 03/15/17 19:50 100 T-piece 6.00 28 03/15/17 16:44 98.7 102 24 126/67 (86) 100 03/15/17 16:00 89 03/15/17 12:38 100.3 104 27 127/66 (86) 99 03/15/17 12:30 112 03/15/17 11:20 99 T-Piece 7.00 28 I/O 03/15/17 03/15/17 03/15/17 03/16/17 03/16/17 03/16/17 07:00 15:00 23:00 07:00 15:00 23:00 Intake Total 1031 ml 1082 ml 1056 ml Output Total 425 ml 550 ml 550 ml Balance 606 ml 532 ml 506 ml Tube Feeding 1031 ml 582 ml 656 ml Tube Irrigant 100 ml Other 400 ml 400 ml Output Urine Total 425 ml 350 ml 550 ml Drainage Total 200 ml # Voids 1 # Bowel Movements 0 Result Diagram: 03/14/1730 03/14/17 0830 Objective Remarks GENERAL: NAD, A&Ox0 HEAD: Normocephalic. NECK: Supple, trachea midline. No lymphadenopathy. Tracheostomy present. EYES: No scleral icterus. No injection or drainage. CARDIOVASCULAR: Regular rate and rhythm without murmurs, gallops, or rubs. RESPIRATORY: Breath sounds equal bilaterally. No accessory muscle use. GASTROINTESTINAL: Abdomen soft, non-tender, nondistended. MUSCULOSKELETAL: No cyanosis, or edema. Global retractions SKIN: Warm and dry. NEURO: No focal neurological deficitis. A/P Problem List: (1) Seizure disorder ICD Code: G40.909 - Epilepsy, unspecified, not intractable, without status epilepticus (2) Chronic respiratory failure ICD Code: J96.10 - Chronic respiratory failure, unspecified whether with hypoxia or hypercapnia (3) History of DVT (deep vein thrombosis) ICD Code: Z86.718 - Personal history of other venous thrombosis and embolism Status: Acute (4) Hypoxic encephalopathy ICD Code: G93.1 - Anoxic brain damage, not elsewhere classified Status: Acute (5) Permanent vegetative state ICD Code: R40.3 - Persistent vegetative state Status: Acute (6) Hypertension ICD Code: I10 - Essential (primary) hypertension Status: Acute (7) Leukocytosis ICD Code: D72.829 - Elevated white blood cell count, unspecified Status: Acute (8) Febrile illness ICD Code: R50.9 - Fever, unspecified Status: Acute Assessment and Plan Assessment and plan 31-year-old male admitted with pneumonia and sepsis with a chronic baseline of persistent vegetative state and chronic respiratory failure. Improved blood pressure control. Continue to monitor for fevers after stopping antibiotics. Discharged to be considered starting tomorrow morning if patient remains fever free. Persistent vegetative state History of anoxic brain injury Continue supportive care Once improved he'll transition back to his retirement facility Sepsis Fever Related to pneumonia Resolved Pneumonia Chronic respiratory failure Chronic tracheostomy Continue cefepime Pulmonology following Continue oxygen supplementation via trach collar as needed Tracheostomy maintenance Tachycardia Improved Continue on Lopressor Hypertension Not controlled today Start as needed clonidine Continue Lopressor, hydralazine, Norvasc Monitor on telemetry Seizure disorder Continue lorazepam Continue Keppra DVT prophylaxis SCDs Eliquis Discharge Planning Changes back to retirement facility when patient stabilizes Problem Qualifiers (1) Leukocytosis: Lamonte Mckeon MD Mar 16, 2017 10:35
[2017-03-16] MEDS: DOCUSATE SODIUM 50 MG/SENNA 8.6 MG TAB PO SCH ×2 (10:38→22:17)
[2017-03-16] MEDS: APIXABAN 5 MG TABLET G-TUBE SCH ×2 (10:39→22:17)
[2017-03-16] MEDS: METOPROLOL TARTRATE 25 MG TAB PO SCH ×2 (10:39→21:00)
[2017-03-16] MEDS: LORATADINE 10 MG TAB G-TUBE SCH (10:39)
[2017-03-16] MEDS: BACLOFEN 10 MG TAB G-TUBE SCH ×3 (10:39→18:29)
[2017-03-16] MEDS: levETIRAcetam 500 MG/5 ML UDC G-TUBE SCH ×2 (10:40→22:16)
[2017-03-16] MEDS: METOCLOPRAMIDE HCL 10 MG TAB PEG SCH ×3 (10:40→18:29)
[2017-03-16] MEDS: PANTOPRAZOLE SODIUM 40 MG VIAL IV SCH (10:40)
[2017-03-16] MEDS: LORazepam 1 MG TAB G-TUBE PRN (16:53)
[2017-03-17] VITALS (11 sets, daily range): BP systolic 106–118; BP diastolic 50–70; PULSE 56–120; RESP 14–24; TEMP 98.5–99; O2SAT 97–100
[2017-03-17] MEDS: HYOSCYAMINE 0.125 MG TAB PO SCH ×6 (01:40→22:26)
[2017-03-17] MEDS: CHLORHEXIDINE GLUCONATE 2 % 1 PACK (2 CLOTHS) TOP SCH (01:40)
[2017-03-17] MEDS: hydrALAZINE HCL 50 MG TAB PO SCH ×3 (05:21→22:26)
[2017-03-17] MEDS: FREE WATER G-TUBE SCH ×4 (05:22→17:35)
[2017-03-17] MEDS: INSULIN ASPART SUPPLEMENTAL SCALE SQ SCH ×4 (06:00→18:00)
[2017-03-17] MEDS: levETIRAcetam 500 MG/5 ML UDC G-TUBE SCH ×2 (09:00→22:25)
--- NOTE | 2017-03-17 10:14 | HHI.PR ---
Subjective Remarks Patient remains encephalopathic, nonverbal. On T piece. Objective Vitals Vital Signs Date Time Temp Pulse Resp B/P (MAP) Pulse Ox O2 Delivery O2 Flow Rate FiO2 03/17/17 08:15 100 T-piece 7.00 28 03/17/17 04:14 98.5 92 19 118/70 (86) 100 03/17/17 04:14 92 03/17/17 00:14 56 14 106/50 (68) 98 03/16/17 23:44 98.7 70 16 113/61 (78) 98 03/16/17 23:00 96 03/16/17 21:17 52 15 98/50 (66) 100 03/16/17 20:00 99 Trach Collar 6.00 03/16/17 20:00 84 03/16/17 19:41 100.0 112 18 120/64 (82) 100 03/16/17 19:35 100 T-piece 6.00 28 03/16/17 17:17 104 17 133/87 (102) 100 03/16/17 17:00 96 16 100 03/16/17 15:00 84 20 100 03/16/17 13:18 T-Piece 6.00 28 03/16/17 13:17 64 16 124/64 (84) 99 03/16/17 13:00 88 22 100 03/16/17 11:00 58 19 99 I/O 03/16/17 03/16/17 03/16/17 03/17/17 03/17/17 03/17/17 07:00 15:00 23:00 07:00 15:00 23:00 Intake Total 1056 ml 1473 ml Output Total 550 ml 600 ml 600 ml Balance 506 ml -600 ml 873 ml Intake Oral 0 ml Tube Feeding 656 ml 1373 ml Other 400 ml 100 ml Output Urine Total 550 ml 600 ml 600 ml # Voids 1 # Bowel Movements 0 1 Result Diagram: 03/14/1782903/14/17829 Objective Remarks GENERAL: Young adult male on TPs. SKIN: Warm and dry. HEAD: Normocephalic. EYES: No scleral icterus. No injection or drainage. NECK: Supple, trachea midline. No JVD or lymphadenopathy. CARDIOVASCULAR: Regular rate and rhythm without murmurs, gallops, or rubs. RESPIRATORY: Breath sounds equal bilaterally anteriorly. No accessory muscle use. GASTROINTESTINAL: Abdomen soft, non-tender, nondistended. EXTREMITIES: No cyanosis, or edema. Contractures of extremities. NEUROLOGICAL: Awake, alert, and oriented x 3. Non-focal. Procedures Tracheostomy care A/P Problem List: (1) Permanent vegetative state ICD Code: R40.3 - Persistent vegetative state Status: Acute (2) Sepsis ICD Code: A41.9 - Sepsis, unspecified organism Status: Acute (3) Tachycardia ICD Code: R00.0 - Tachycardia, unspecified (4) Chronic respiratory failure ICD Code: J96.10 - Chronic respiratory failure, unspecified whether with hypoxia or hypercapnia (5) Seizure disorder ICD Code: G40.909 - Epilepsy, unspecified, not intractable, without status epilepticus (6) Fever ICD Code: R50.9 - Fever, unspecified Assessment and Plan 31-year-old male admitted with pneumonia and sepsis with a chronic baseline of persistent vegetative state and chronic respiratory failure. Persistent vegetative state History of anoxic brain injury Continue supportive care Once improved he'll transition back to his nursing home facility Sepsis-resolved Fever Related to pneumonia Resolved Pneumonia Chronic respiratory failure Chronic tracheostomy Status post course of antibiotics now afebrile 48 hours Pulmonology following - on TPN is not requiring vent support. Continue oxygen supplementation via trach collar as needed Tracheostomy maintenance Tachycardia Improved Continue on Lopressor Hypertension Controlled today As needed clonidine Continue Lopressor, hydralazine, Norvasc Monitor on telemetry Seizure disorder Continue lorazepam Continue Keppra DVT prophylaxis SCDs Eliquis Problem Qualifiers (1) Sepsis: Selina Rodgers MD Mar 17, 2017 10:14
[2017-03-17] MEDS: SODIUM CHLORIDE 0.9% FLUSH 10 ML FLUSH IV FLUSH SCH ×2 (10:48→22:26)
[2017-03-17] MEDS: ATROPINE SULFATE 1% OPHT SOLN 5 ML BTL SL PRN ×2 (10:48→17:36)
[2017-03-17] MEDS: CHLORHEXIDINE 0.12% (ORAL KIT) 15 ML CUP MT SCH ×2 (10:48→22:27)
[2017-03-17] MEDS: BACLOFEN 10 MG TAB G-TUBE SCH ×3 (10:49→17:35)
[2017-03-17] MEDS: METOPROLOL TARTRATE 25 MG TAB PO SCH ×2 (10:49→22:26)
[2017-03-17] MEDS: ARTIFICIAL TEARS OPTH SOLN 15 ML BTL EACH EYE SCH ×3 (10:49→17:35)
[2017-03-17] MEDS: APIXABAN 5 MG TABLET G-TUBE SCH ×2 (10:49→22:26)
[2017-03-17] MEDS: LORazepam 1 MG TAB G-TUBE PRN (10:50)
[2017-03-17] MEDS: DOCUSATE SODIUM 50 MG/SENNA 8.6 MG TAB PO SCH ×2 (10:50→22:26)
[2017-03-17] MEDS: METOCLOPRAMIDE HCL 10 MG TAB PEG SCH ×3 (10:50→17:35)
[2017-03-17] MEDS: PANTOPRAZOLE SODIUM 40 MG VIAL IV SCH (10:50)
[2017-03-17] MEDS: LORATADINE 10 MG TAB G-TUBE SCH (10:50)
[2017-03-18] VITALS (13 sets, daily range): BP systolic 91–144; BP diastolic 56–82; PULSE 58–118; RESP 14–29; TEMP 98.7–100.3; O2SAT 98–100
[2017-03-18] MEDS: HYOSCYAMINE 0.125 MG TAB PO SCH ×6 (00:59→21:17)
[2017-03-18] MEDS: CHLORHEXIDINE GLUCONATE 2 % 1 PACK (2 CLOTHS) TOP SCH (00:59)
[2017-03-18] MEDS: hydrALAZINE HCL 50 MG TAB PO SCH ×3 (05:17→21:17)
[2017-03-18] MEDS: FREE WATER G-TUBE SCH ×5 (05:17→17:22)
[2017-03-18] MEDS: INSULIN ASPART SUPPLEMENTAL SCALE SQ SCH ×4 (06:00→17:22)
[2017-03-18] MEDS: DOCUSATE SODIUM 50 MG/SENNA 8.6 MG TAB PO SCH ×2 (09:00→21:38)
[2017-03-18] MEDS: BACLOFEN 10 MG TAB G-TUBE SCH ×3 (09:38→17:22)
[2017-03-18] MEDS: APIXABAN 5 MG TABLET G-TUBE SCH ×2 (09:38→21:17)
[2017-03-18] MEDS: PANTOPRAZOLE SODIUM 40 MG VIAL IV SCH (09:38)
[2017-03-18] MEDS: METOCLOPRAMIDE HCL 10 MG TAB PEG SCH ×3 (09:38→17:22)
[2017-03-18] MEDS: LORATADINE 10 MG TAB G-TUBE SCH (09:39)
[2017-03-18] MEDS: METOPROLOL TARTRATE 25 MG TAB PO SCH ×2 (09:39→21:17)
[2017-03-18] MEDS: SODIUM CHLORIDE 0.9% FLUSH 10 ML FLUSH IV FLUSH SCH ×2 (09:41→21:39)
[2017-03-18] MEDS: CHLORHEXIDINE 0.12% (ORAL KIT) 15 ML CUP MT SCH ×2 (09:41→21:16)
[2017-03-18] MEDS: levETIRAcetam 500 MG/5 ML UDC G-TUBE SCH ×2 (09:41→21:38)
[2017-03-18] MEDS: ARTIFICIAL TEARS OPTH SOLN 15 ML BTL EACH EYE SCH ×3 (09:42→17:22)
--- NOTE | 2017-03-18 14:30 | HHI.PR ---
Subjective Remarks Afebrile. Stable on T piece. Objective Vitals Vital Signs Date Time Temp Pulse Resp B/P (MAP) Pulse Ox O2 Delivery O2 Flow Rate FiO2 03/18/17 10:00 80 16 100 03/18/17 09:00 72 14 103/59 (74) 100 03/18/17 08:00 100 T-piece 28 03/18/17 08:00 60 03/18/17 08:00 98.7 62 15 99 03/18/17 08:00 100 T-Piece 6.00 03/18/17 07:00 118 24 125/82 (96) 100 03/18/17 05:00 66 03/18/17 05:00 99.3 66 29 144/74 (97) 99 03/18/17 01:00 98.7 82 18 91/58 (69) 100 03/18/17 01:00 82 03/17/17 20:12 90 03/17/17 20:12 99.0 90 19 110/58 (75) 100 03/17/17 20:00 100 T-Piece 6.00 03/17/17 19:30 100 T-piece 6.00 28 I/O 03/17/17 03/17/17 03/17/17 03/18/17 03/18/17 03/18/17 07:00 15:00 23:00 07:00 15:00 23:00 Intake Total 1473 ml 1534 ml 1079 ml Output Total 600 ml 700 ml Balance 873 ml 1534 ml 379 ml Intake Oral 0 ml 0 ml Tube Feeding 1373 ml 1534 ml 679 ml Other 100 ml 400 ml Output Urine Total 600 ml 700 ml # Bowel Movements 1 Result Diagram: 03/14/1730 03/14/1730 Objective Remarks GENERAL: Young adult male on TPs. SKIN: Warm and dry. HEAD: Normocephalic. EYES: No scleral icterus. No injection or drainage. NECK: Supple, trachea midline. No JVD or lymphadenopathy. CARDIOVASCULAR: Regular rate and rhythm without murmurs, gallops, or rubs. RESPIRATORY: Breath sounds equal bilaterally anteriorly. No accessory muscle use. GASTROINTESTINAL: Abdomen soft, non-tender, nondistended. EXTREMITIES: No cyanosis, or edema. Contractures of extremities. NEUROLOGICAL: Awake, alert, and oriented x 3. Non-focal. Procedures Tracheostomy care A/P Problem List: (1) Permanent vegetative state ICD Code: R40.3 - Persistent vegetative state Status: Acute (2) Sepsis ICD Code: A41.9 - Sepsis, unspecified organism Status: Acute (3) Tachycardia ICD Code: R00.0 - Tachycardia, unspecified (4) Chronic respiratory failure ICD Code: J96.10 - Chronic respiratory failure, unspecified whether with hypoxia or hypercapnia (5) Seizure disorder ICD Code: G40.909 - Epilepsy, unspecified, not intractable, without status epilepticus (6) Fever ICD Code: R50.9 - Fever, unspecified Assessment and Plan 31-year-old male admitted with pneumonia and sepsis with a chronic baseline of persistent vegetative state and chronic respiratory failure. Persistent vegetative state History of anoxic brain injury Continue supportive care Sepsis-resolved Fever Related to pneumonia Resolved Pneumonia Chronic respiratory failure Chronic tracheostomy Status post course of antibiotics now afebrile 48 hours Pulmonology following - on TPN is not requiring vent support. Continue oxygen supplementation via trach collar as needed Tracheostomy maintenance Tachycardia Improved Continue on Lopressor Hypertension Controlled today As needed clonidine Continue Lopressor, hydralazine, Norvasc Monitor on telemetry Seizure disorder Continue lorazepam Continue Keppra DVT prophylaxis SCDs Eliquis Discharge Planning Discharged to nursing facility, when arrangements made. Problem Qualifiers (1) Sepsis: Selina Rodgers MD Mar 18, 2017 14:30
[2017-03-19] VITALS (20 sets, daily range): BP systolic 79–127; BP diastolic 40–68; PULSE 54–150; RESP 11–32; TEMP 99–99.4; O2SAT 97–100
[2017-03-19] MEDS: HYOSCYAMINE 0.125 MG TAB PO SCH ×6 (01:10→21:27)
[2017-03-19] MEDS: CHLORHEXIDINE GLUCONATE 2 % 1 PACK (2 CLOTHS) TOP SCH (04:00)
[2017-03-19] MEDS: ATROPINE SULFATE 1% OPHT SOLN 5 ML BTL SL PRN (04:10)
[2017-03-19] MEDS: FREE WATER G-TUBE SCH ×5 (06:00→23:52)
[2017-03-19] MEDS: INSULIN ASPART SUPPLEMENTAL SCALE SQ SCH ×5 (06:00→23:52)
[2017-03-19] MEDS: hydrALAZINE HCL 50 MG TAB PO SCH ×2 (06:19→14:00)
[2017-03-19] MEDS: hydrALAZINE HCL 20 MG/ML VIAL IV PUSH PRN (06:51)
[2017-03-19] MEDS: LORazepam 1 MG TAB G-TUBE PRN (06:51)
[2017-03-19] MEDS: METOCLOPRAMIDE HCL 10 MG TAB PEG SCH ×3 (08:26→17:43)
[2017-03-19] MEDS: BACLOFEN 10 MG TAB G-TUBE SCH ×3 (08:26→17:43)
[2017-03-19] MEDS: levETIRAcetam 500 MG/5 ML UDC G-TUBE SCH ×2 (08:26→21:27)
[2017-03-19] MEDS: LORATADINE 10 MG TAB G-TUBE SCH (08:26)
[2017-03-19] MEDS: DOCUSATE SODIUM 50 MG/SENNA 8.6 MG TAB PO SCH ×2 (08:27→21:26)
[2017-03-19] MEDS: CHLORHEXIDINE 0.12% (ORAL KIT) 15 ML CUP MT SCH ×2 (08:27→21:26)
[2017-03-19] MEDS: ARTIFICIAL TEARS OPTH SOLN 15 ML BTL EACH EYE SCH ×3 (08:27→17:43)
[2017-03-19] MEDS: APIXABAN 5 MG TABLET G-TUBE SCH ×2 (08:27→21:26)
[2017-03-19] MEDS: SODIUM CHLORIDE 0.9% FLUSH 10 ML FLUSH IV FLUSH SCH ×2 (08:27→21:27)
[2017-03-19] MEDS: METOPROLOL TARTRATE 25 MG TAB PO SCH ×2 (08:27→21:27)
[2017-03-19] MEDS: PANTOPRAZOLE SODIUM 40 MG VIAL IV SCH (08:27)
--- NOTE | 2017-03-19 15:21 | HHI.PR ---
Subjective Remarks Patient is non verbal Overnight events discussed w RN this am patient tachycardic into the 150's as per RN patient hypotensive. Objective Vitals Vital Signs Date Time Temp Pulse Resp B/P (MAP) Pulse Ox O2 Delivery O2 Flow Rate FiO2 03/19/17 08:00 117 03/19/17 08:00 99.3 116 21 98 03/19/17 08:00 100 T-Piece 6.00 03/19/17 07:45 98 T-piece 28 03/19/17 07:45 144 30 127/50 (75) 97 03/19/17 07:00 150 28 99 03/19/17 04:00 100 03/19/17 04:00 99.4 94 20 110/56 (74) 100 03/19/17 00:00 81 03/19/17 00:00 99.3 81 11 122/68 (86) 100 03/18/17 23:29 98 T-piece 6.00 28 03/18/17 20:00 100.3 64 14 100/57 (71) 100 03/18/17 20:00 64 03/18/17 20:00 100 T-Piece 28 I/O 03/18/17 03/18/17 03/18/17 03/19/17 03/19/17 03/19/17 07:00 15:00 23:00 07:00 15:00 23:00 Intake Total 1079 ml 1683 ml Output Total 700 ml 450 ml Balance 379 ml 1233 ml Intake Oral 0 ml Tube Feeding 679 ml 1283 ml Other 400 ml 400 ml Output Urine Total 700 ml 450 ml # Bowel Movements 1 1 Objective Remarks GENERAL: Young adult male on TPs. Sleeping, opens eyes when stimulated SKIN: Warm and dry. HEAD: Normocephalic. EYES: No scleral icterus. No injection or drainage. NECK: Supple, trachea midline. No JVD or lymphadenopathy. CARDIOVASCULAR: Regular rate and rhythm without murmurs, gallops, or rubs. RESPIRATORY: Breath sounds equal bilaterally anteriorly. No accessory muscle use. GASTROINTESTINAL: Abdomen soft, non-tender, nondistended. EXTREMITIES: No cyanosis, or edema. Contractures of extremities. NEUROLOGICAL: Non verbal, does not follows commands, contractures on extremities . Procedures Tracheostomy care Medications and IVs Current Medications Medications (Trade) Dose Ordered Sig/Diane Route Start Time Stop Time Status Last Admin (NS Flush) 2 ml UNSCH PRN IV FLUSH 02/21/17 06:15 (NS Flush) 2 ml BID IV FLUSH 02/21/17 09:00 03/19/17 08:27 (Protonix Inj) 40 mg DAILY IV 02/21/17 09:00 03/19/17 08:27 (Tears Naturale Opth Soln) 1 drop TID EACH EYE 02/21/17 09:00 03/19/17 14:31 (Zofran Inj) 4 mg Q6H PRN IV 02/21/17 06:15 02/27/17 03:10 (Albuterol Neb) 2.5 mg Q2HR NEB PRN INH 02/21/17 06:15 03/12/17 08:27 Miscellaneous Information 1 Q361D XX 02/21/17 06:15 (Chlorhexidine 2% Cloth) Taper DAILY@04 TOP 02/22/17 04:00 02/18/18 03:59 03/17/17 01:40 (Chlorhexidine 2% Cloth) 3 pack UNSCH PRN TOP 02/21/17 06:15 (Sanam-Colace) 1 tab BID PO 02/21/17 09:00 03/18/17 21:38 (Senokot) 17.2 mg Q12H PRN PO 02/21/17 06:15 03/10/17 17:32 (Dulcolax Supp) 10 mg DAILY PRN RECTAL 02/21/17 06:15 03/12/17 09:06 (Lactulose Liq) 30 ml DAILY PRN PO 02/21/17 06:15 03/12/17 09:05 (Keppra Liq) 1,000 mg BID G-TUBE 02/21/17 09:00 03/19/17 08:26 (Ativan) 0.5 mg DAILY PRN PO 02/21/17 07:00 03/10/17 08:58 (Ativan) 1 mg Q4H PRN G-TUBE 02/21/17 07:00 03/19/17 06:51 (Claritin) 5 mg DAILY G-TUBE 02/21/17 09:00 03/19/17 08:26 (Peridex 0.12% Liq) 15 ml BID@08,20 MT 02/21/17 08:00 03/19/17 08:27 (Isopto Atropine 1% Opth Soln) 1 drop Q12HR PRN SL 02/21/17 07:45 03/19/17 04:10 (Eliquis) 5 mg BID G-TUBE 02/22/17 09:00 Future hold 03/19/17 08:27 (D50w (Vial) Inj) 50 ml UNSCH PRN IV 02/21/17 08:15 (Glucagon Inj) 1 mg UNSCH PRN OTHER 02/21/17 08:15 (NovoLOG SUPPLEMENTAL SCALE) 1 Q6HR SQ 02/21/17 12:00 (Levsin) 0.125 mg Q4H PO 02/22/17 13:00 03/19/17 14:30 (Percocet 5-325 Mg) 1 tab Q6H PRN PO 02/22/17 11:30 03/13/17 08:34 (Apresoline Inj) 20 mg Q3H PRN IV PUSH 02/27/17 10:15 03/19/17 06:51 (Apresoline) 50 mg Q8HR PO 02/28/17 14:00 03/19/17 06:19 (Lidocaine Pf 2% Neb) 2 ml Q8HR NEB PRN NEB 02/28/17 13:30 (Free Water) VOLUME OF WATER: ( 200 ) ML Q6HR G-TUBE 03/01/17 12:00 03/19/17 12:00 (Norvasc) 10 mg DAILY PEG 03/02/17 09:00 03/19/17 08:27 (fentaNYL INJ) 50 mcg Q1H PRN IV PUSH 03/01/17 14:00 03/02/17 04:57 (Lopressor) 25 mg Q12HR PO 03/06/17 09:00 03/19/17 08:27 (Lioresal) 20 mg TID G-TUBE 03/08/17 10:00 03/19/17 14:30 (Pill Splitter) 1 ea UNSCH PRN OTHER 03/08/17 14:15 03/12/17 09:05 (Tylenol 650 Mg/ 20 ml Liq) 650 mg Q6H PRN PEG 03/09/17 13:00 03/15/17 13:03 (Catapres) 0.1 mg Q6H PRN PO 03/12/17 12:30 (Reglan) 5 mg TID PEG 03/12/17 18:00 03/19/17 14:31 (Chapstick) 1 applic UNSCH PRN TOPICAL 03/15/17 11:30 A/P Problem List: (1) Permanent vegetative state ICD Code: R40.3 - Persistent vegetative state Status: Acute (2) Sepsis ICD Code: A41.9 - Sepsis, unspecified organism Status: Resolved (3) Tachycardia ICD Code: R00.0 - Tachycardia, unspecified (4) Chronic respiratory failure ICD Code: J96.10 - Chronic respiratory failure, unspecified whether with hypoxia or hypercapnia (5) Seizure disorder ICD Code: G40.909 - Epilepsy, unspecified, not intractable, without status epilepticus (6) Fever ICD Code: R50.9 - Fever, unspecified Plan: no further fever, cefepime through 03/13 per pulmonary Assessment and Plan 31-year-old male admitted with pneumonia and sepsis with a chronic baseline of persistent vegetative state and chronic respiratory failure. Persistent vegetative state History of anoxic brain injury Continue supportive care Sepsis-resolved Fever Related to pneumonia Resolved Pneumonia Chronic respiratory failure Chronic tracheostomy Status post course of antibiotics now afebrile 48 hours Pulmonology following - on TPN is not requiring vent support. Continue oxygen supplementation via trach collar as needed Tracheostomy maintenance 03/19 Low grade temp with a T max of 100.3 on 03/18. Continue to monitor vital signs. Tachycardia 03/19 Patient had episode of tachycardia into the 150's. upon review of telemetry shows like sinus tachycardia. Patient's heart rate now in the 60's. Will check EKG. Hypertension/Hypotension 03/19 hold bp meds. Patient hypotensive with an sbp in the 90's. Will give an IV fluid bolus with 500 ml of normal saline. Seizure disorder Continue lorazepam Continue Keppra no seizure episodes reported. DVT prophylaxis SCDs Eliquis Problem Qualifiers (1) Sepsis: Adolfo Flannery MD Mar 19, 2017 15:21
[2017-03-19] MEDS ORDERED: SODIUM CHLORID 0.9% 500 ML INJ 500 ML IV ONE (15:30)
[2017-03-19 16:59] LABS: CHLORIDE 104 MEQ/L (98-107); SODIUM (NA) 141 MEQ/L (136-145)
[2017-03-19 17:02] LABS: ANION GAP 9 MEQ/L (5-15); BICARBONATE 27.9 MEQ/L (21.0-32.0); MAGNESIUM 2.4 MG/DL (1.5-2.5)
[2017-03-19 17:03] LABS: AUTOMATED NEUTROPHIL # 3.4 TH/MM3 (1.8-7.7); BASOPHIL % 0.5 % (0.0-2.0); BLOOD UREA NITROGEN 19 MG/DL (7-18); EOSINOPHIL # 0.1 TH/MM3 (0-0.4); EOSINOPHIL % 1.6 % (0.0-4.0); HEMATOCRIT 34.8 % (39.0-51.0); HEMO FLAGS DIFF FINAL; LYMPHOCYTE # 1.6 TH/MM3 (1.0-4.8); MEAN CELL VOLUME 91.7 FL (80.0-100.0); MEAN CORPUSCULAR HEMOGLOBIN 30.7 PG (27.0-34.0); MEAN CORPUSCULAR HGB CONC 33.5 % (32.0-36.0); MONO % 10.7 % (0.0-8.0); NEUT % 59.2 % (16.0-70.0); PLATELET COUNT 216 TH/MM3 (150-450); RED BLOOD COUNT 3.79 MIL/MM3 (4.50-5.90); RED CELL DISTRIBUTION WIDTH 12.5 % (11.6-17.2); WHITE BLOOD COUNT 5.7 TH/MM3 (4.0-11.0)
[2017-03-19 17:05] LABS: ALT (GPT) 55 U/L (12-78); AST (GOT) 36 U/L (15-37)
[2017-03-19 17:06] LABS: GLOMERULAR FILTRATION RATE 155 ML/MIN (>89)
[2017-03-19 17:07] LABS: TOTAL BILIRUBIN ADULT 0.2 MG/DL (0.2-1.0)
[2017-03-19 17:08] LABS: ALKALINE PHOSPHATASE 91 U/L (45-117)
[2017-03-19] MEDS: oxyCODONE/ACETAMINOPHEN 5 MG/325 MG TAB PO PRN (21:26)
[2017-03-20] VITALS: BP 105/58; PULSE 73; RESP 13; TEMP 98.9; O2SAT 99
[2017-03-20] MEDS: HYOSCYAMINE 0.125 MG TAB PO SCH ×3 (01:17→09:32)
[2017-03-20] MEDS: CHLORHEXIDINE GLUCONATE 2 % 1 PACK (2 CLOTHS) TOP SCH (03:22)
[2017-03-20 04:00] VITALS: BP 100/54; PULSE 49; RESP 22; TEMP 99; O2SAT 97
[2017-03-20] MEDS: FREE WATER G-TUBE SCH (05:04)
[2017-03-20] MEDS: INSULIN ASPART SUPPLEMENTAL SCALE SQ SCH (05:04)
[2017-03-20 07:00] VITALS: PULSE 72; RESP 20; O2SAT 99
[2017-03-20 08:00] VITALS: PULSE 56; RESP 18; TEMP 99.7; O2SAT 99
[2017-03-20 08:21] VITALS: BP 118/66; PULSE 72; RESP 22; O2SAT 100
[2017-03-20] MEDS: DOCUSATE SODIUM 50 MG/SENNA 8.6 MG TAB PO SCH (09:00)
[2017-03-20 09:03] LABS: AUTOMATED NEUTROPHIL # 4.2 TH/MM3 (1.8-7.7); BASOPHIL # 0.1 TH/MM3 (0-0.2); BASOPHIL % 0.8 % (0.0-2.0); EOSINOPHIL # 0.1 TH/MM3 (0-0.4); EOSINOPHIL % 1.7 % (0.0-4.0); HEMATOCRIT 36.6 % (39.0-51.0); HEMO FLAGS DIFF FINAL; LYMPH % 33.3 % (9.0-44.0); LYMPHOCYTE # 2.6 TH/MM3 (1.0-4.8); MEAN CELL VOLUME 90.1 FL (80.0-100.0); MEAN CORPUSCULAR HEMOGLOBIN 30.4 PG (27.0-34.0); MEAN CORPUSCULAR HGB CONC 33.7 % (32.0-36.0); MONO % 10.7 % (0.0-8.0); NEUT % 53.5 % (16.0-70.0); PLATELET COUNT 276 TH/MM3 (150-450); RED BLOOD COUNT 4.06 MIL/MM3 (4.50-5.90); RED CELL DISTRIBUTION WIDTH 11.9 % (11.6-17.2); WHITE BLOOD COUNT 7.8 TH/MM3 (4.0-11.0)
[2017-03-20 09:10] VITALS: O2SAT 99
[2017-03-20 09:11] LABS: CHLORIDE 104 MEQ/L (98-107); POTASSIUM 4.2 MEQ/L (3.5-5.1); SODIUM (NA) 141 MEQ/L (136-145)
[2017-03-20 09:15] LABS: ANION GAP 10 MEQ/L (5-15); BICARBONATE 26.6 MEQ/L (21.0-32.0); BLOOD UREA NITROGEN 18 MG/DL (7-18)
[2017-03-20 09:18] LABS: ALT (GPT) 61 U/L (12-78); AST (GOT) 32 U/L (15-37); GLOMERULAR FILTRATION RATE 158 ML/MIN (>89)
[2017-03-20 09:19] LABS: TOTAL BILIRUBIN ADULT 0.2 MG/DL (0.2-1.0)
[2017-03-20 09:21] LABS: ALKALINE PHOSPHATASE 103 U/L (45-117)
[2017-03-20] MEDS: PANTOPRAZOLE SODIUM 40 MG VIAL IV SCH (09:30)
[2017-03-20] MEDS: levETIRAcetam 500 MG/5 ML UDC G-TUBE SCH (09:30)
[2017-03-20] MEDS: METOCLOPRAMIDE HCL 10 MG TAB PEG SCH (09:31)
[2017-03-20] MEDS: LORATADINE 10 MG TAB G-TUBE SCH (09:31)
[2017-03-20] MEDS: APIXABAN 5 MG TABLET G-TUBE SCH (09:31)
[2017-03-20] MEDS: METOPROLOL TARTRATE 25 MG TAB PO SCH (09:31)
[2017-03-20] MEDS: BACLOFEN 10 MG TAB G-TUBE SCH (09:31)
[2017-03-20] MEDS: CHLORHEXIDINE 0.12% (ORAL KIT) 15 ML CUP MT SCH (09:32)
[2017-03-20] MEDS: SODIUM CHLORIDE 0.9% FLUSH 10 ML FLUSH IV FLUSH SCH (09:32)
[2017-03-20] MEDS: ARTIFICIAL TEARS OPTH SOLN 15 ML BTL EACH EYE SCH (09:32)
[2017-03-20 10:13] LABS: MAGNESIUM 2.3 MG/DL (1.5-2.5)
--- NOTE | 2017-03-20 13:32 | HHI.DS ---
Discharge Summary Admission Date Feb 21, 2017 at 04:50 Discharge Date: Mar 20, 2017 Admitting Diagnosis sepsis, tracheitis, hypoxic encephalopathy (1) Permanent vegetative state ICD Code: R40.3 - Persistent vegetative state Diagnosis: Principal Status: Acute (2) Sepsis ICD Code: A41.9 - Sepsis, unspecified organism Diagnosis: Principal Status: Resolved (3) Tachycardia ICD Code: R00.0 - Tachycardia, unspecified Diagnosis: Principal (4) Chronic respiratory failure ICD Code: J96.10 - Chronic respiratory failure, unspecified whether with hypoxia or hypercapnia Diagnosis: Principal (5) Seizure disorder ICD Code: G40.909 - Epilepsy, unspecified, not intractable, without status epilepticus Diagnosis: Principal (6) Fever ICD Code: R50.9 - Fever, unspecified Diagnosis: Principal Procedures Tracheostomy care Brief History - From Admission 31-year-old male. Resident of [facility] or rehabilitation. Past medical history includes anoxic brain injury 03/21 Temovate due to Haldol administration, recurrent aspiration pneumoniaMDRO positive MRSA positive ESBL positive Escherichia coli in past, hypertension, dyslipidemia, history of pseudocyst/necrotizing, diabetes mellitus presents with a one-week history of nausea/vomiting according to his mother at this nursing facility. He was also recently diagnosed with a fever started on amoxicillin Upon presentation to the ED, patient was noted of temperature 100.2. Leukocytosis 14.5 and elevated transaminases. Lactic acid 4.1. Received 3 L normal saline. Start empirically on piperacillin/tazobactam and vancomycin. Pancultured. Chest x-ray revealed no acute findings. CT abdomen/pelvis and amylase lipase all pending. Upon presentation the floor, patient was tachycardic in acute cluster distress. Tracheostomy was exchanged for an 8.0-6.0 Shiley. Patient is currently sedated on the ventilator on Midazolam And fentanyl drips. CBC/BMP: 03/20/17 0855 03/20/17 0855 Significant Findings Laboratory Tests Test 03/19/17 16:35 03/20/17 08:55 Red Blood Count 3.79 MIL/MM3 (4.50-5.90) 4.06 MIL/MM3 (4.50-5.90) Hemoglobin 11.7 GM/DL (13.0-17.0) 12.3 GM/DL (13.0-17.0) Hematocrit 34.8 % (39.0-51.0) 36.6 % (39.0-51.0) Monocytes (%) (Auto) 10.7 % (0.0-8.0) 10.7 % (0.0-8.0) Blood Urea Nitrogen 19 MG/DL (7-18) Random Glucose 129 MG/DL (74-106) Total Protein 8.5 GM/DL (6.4-8.2) Imaging Last Impressions Chest X-Ray 03/09/17 Signed Impressions: Service Date/Time: Thursday, March 09, 2017 12:45 - CONCLUSION: No acute disease. Hudson Zepeda MD FACR Upper Extremity Ultrasound 03/01/17 0000 Signed Impressions: Service Date/Time: Wednesday, March 01, 2017 20:17 - CONCLUSION: Occlusive thrombus within the cephalic veins bilaterally and the right basilic vein as well as nonocclusive thrombus within the right brachial and left basilic veins. Peter Nolan MD Head CT 03/01/17 0000 Signed Impressions: Service Date/Time: Wednesday, March 01, 2017 11:29 - CONCLUSION: Noncontrast CT findings are typical of a severe, diffuse anoxic cerebral event, probably subacute. No bleed. No midline shift. Santo Fisher MD Renal Ultrasound 02/26/17 0000 Signed Impressions: Service Date/Time: Sunday, February 26, 2017 23:26 - CONCLUSION: 1. Right kidney is enlarged. No hydronephrosis identified. No acute findings. Stephan Rich MD Tube Change 02/25/17 0000 Signed Impressions: Service Date/Time: Saturday, February 25, 2017 10:57 - CONCLUSION: Uncomplicated gastrojejunostomy tube exchange as above. Beny Whalen MD Sinuses CT 02/21/17 0000 Signed Impressions: Service Date/Time: Tuesday, February 21, 2017 22:44 - CONCLUSION: 1. No evidence for acute sinusitis. Mucosal thickening right maxillary sinus. Stephan Rich MD Abdomen/Pelvis CT 02/21/17 0000 Signed Impressions: Service Date/Time: Tuesday, February 21, 2017 22:47 - CONCLUSION: 1. Basilar dependent lung consolidation with air bronchograms. Differential diagnosis includes pneumonia and aspiration. 2. Feeding gastrojejunostomy present. No bowel dilatation or evidence for obstruction. Mild constipation. Stephan Rich MD PE at Discharge GENERAL: Young adult male on TPs. Sleeping, opens eyes when stimulated SKIN: Warm and dry. HEAD: Normocephalic. EYES: No scleral icterus. No injection or drainage. NECK: Supple, trachea midline. No JVD or lymphadenopathy. CARDIOVASCULAR: Regular rate and rhythm without murmurs, gallops, or rubs. RESPIRATORY: Breath sounds equal bilaterally anteriorly. No accessory muscle use. GASTROINTESTINAL: Abdomen soft, non-tender, nondistended. EXTREMITIES: No cyanosis, or edema. Contractures of extremities. NEUROLOGICAL: Non verbal, does not follows commands, contractures on extremities . Pt update on day of discharge Patient non verbal. No reports of fevers. Patient with good oxygen saturation. Hospital Course 31-year-old male admitted with pneumonia and sepsis with a chronic baseline of persistent vegetative state and chronic respiratory failure. Persistent vegetative state History of anoxic brain injury Continue supportive care Sepsis-resolved Fever Related to pneumonia Resolved Pneumonia Chronic respiratory failure Chronic tracheostomy Status post course of antibiotics now afebrile 48 hours Pulmonology following - on TPN is not requiring vent support. Provided oxygen supplementation via trach collar as needed Tracheostomy maintenance Low grade temp on 03/19 which resolved. Tachycardia 03/19 Patient had episode of tachycardia into the 150's. upon review of telemetry shows like sinus tachycardia. Patient's heart rate now in the 60's. Will check EKG. Hypertension/Hypotension 03/19 hold bp meds. Patient hypotensive with an sbp in the 90's. Will give an IV fluid bolus with 500 ml of normal saline. Seizure disorder Continue lorazepam Continue Keppra no seizure episodes reported. DVT prophylaxis SCDs Eliquis Pt Condition on Discharge: Stable Discharge Disposition: Rehab Inpatient Discharge Time: > 30 minutes Discharge Instructions DIET: Follow Instructions for: On Tube Feeding Additional Diet Instructions: vital 1.5 @ 50 ml/hr 200 ml's every 6 hours water flush via PEG Activities you can perform: Continue Bedrest Follow up Referrals: PCP Follow-up - 1 Week Continued Medications: Acetaminophen (Tylenol) 325 Mg Tab 650 MG PO Q6H PRN for INCREASED TEMPERATURE, TAB 0 Refills Atropine Opth Drops (Atropine Opth Drops) 1% Soln 1 DROP SL Q12HR PRN for For mild/moderate secretions, #2 ML 0 Refills Hyoscyamine (Hyoscyamine) 0.125 Mg Tab 0.125 MG PO Q4H for Gastrointestinal disorders, TAB 0 Refills Ipratropium-Albuterol Neb (Duoneb) 0.5-2.5 Mg/3 Ml Neb 1 NEBULE INH Q4HR NEB for SHORTNESS OF BREATH, #120 NEBULE 0 Refills Loratadine Liq (Claritin Liq) 5 Mg/5 Ml Liq 5 MG G-TUBE DAILY for Allergy Management, #1 BOTTLE 0 Refills Adolfo Flannery MD Mar 20, 2017 13:32
--- NOTE | 2017-03-20 20:34 | EKG ---
Date Performed: 03/19/2017 Time Performed: 16:27:22 PTAGE: 31 years EKG: Sinus rhythm WITH SHORT ME INTERVAL SLIGHT ST T CHANGE COMPATIBLE WITH EARLY REPOLARIZATION GENERALIZED LOW VOLTA GE NO PREVIOUS TRACING FOR COMPARISON. BORDERLINE ECG NO PREVIOUS TRACING DOCTOR: Danile Escalante Interpretating Date/Time 03/20/2017 20:33:49
[2017-03-21] MEDS ORDERED: LEVA500T20 PEG (10:07)
== END 2017-03-20 14:30 | DRG 870 ==
LOC: NEPC 03:23 → NEDA 04:50 → N03B 06:34 → PHICU 03-07 20:20
PROVIDERS: ADMIT Hospitalist; ATTEND Hospitalist
PROC: 0T9B70Z Drainage of Bladder with Drainage Device, Via Natural or Artificial Opening (ICD-10-PCS; principal; 2017-02-21)
PROC: 5A1955Z Respiratory Ventilation, Greater than 96 Consecutive Hours (ICD-10-PCS; 2017-02-21)
PROC: 0B21XFZ Change Tracheostomy Device in Trachea, External Approach (ICD-10-PCS; 2017-02-21)
PROC: 0D2DXUZ Change Feeding Device in Lower Intestinal Tract, External Approach (ICD-10-PCS; 2017-02-25)
PROC: 0BB18ZX Excision of Trachea, Via Natural or Artificial Opening Endoscopic, Diagnostic (ICD-10-PCS; 2017-02-26)
PROC: 30233N1 Transfusion of Nonautologous Red Blood Cells into Peripheral Vein, Percutaneous Approach (ICD-10-PCS; 2017-02-26)
DX: A41.52 Sepsis due to Pseudomonas (principal); J96.21 Acute and chronic respiratory failure with hypoxia; N17.0 Acute kidney failure with tubular necrosis; R65.21 Severe sepsis with septic shock; J69.0 Pneumonitis due to inhalation of food and vomit; G93.1 Anoxic brain damage, not elsewhere classified; J15.4 Pneumonia due to other streptococci; R40.3 Persistent vegetative state; J15.1 Pneumonia due to Pseudomonas; E87.2 Acidosis; R04.2 Hemoptysis; J98.11 Atelectasis; E87.0 Hyperosmolality and hypernatremia; Z93.0 Tracheostomy status; Z93.1 Gastrostomy status; J04.10 Acute tracheitis without obstruction; I10 Essential (primary) hypertension; F41.9 Anxiety disorder, unspecified; Z86.718 Personal history of other venous thrombosis and embolism; E78.5 Hyperlipidemia, unspecified; E11.9 Type 2 diabetes mellitus without complications; R79.89 Other specified abnormal findings of blood chemistry; Z86.14 Personal history of Methicillin resistant Staphylococcus aureus infection; Z79.891 Long term (current) use of opiate analgesic; G40.909 Epilepsy, unspecified, not intractable, without status epilepticus; R00.0 Tachycardia, unspecified; M62.40 Contracture of muscle, unspecified site; E83.39 Other disorders of phosphorus metabolism; E87.6 Hypokalemia; R00.1 Bradycardia, unspecified; D64.9 Anemia, unspecified; D69.6 Thrombocytopenia, unspecified; H57.02 Anisocoria
CPT/HCPCS: 36430; 36600; 49452; 51702; 70450; 70486; 71010; 74176; 76775; 76937; 80048; 80053; 80177; 80202; 81001; 82140; 82150; 82565; 82570; 82805; 82947; 82948; 83605; 83690; 83735; 84100; 84300; 84443; 84484; 85007; 85025; 85027; 85384; 85610; 85730; 86927; 87040; 87070; 87077; 87086; 87186; 87205; 87449; 87641; 93005; 93306; 93970; 94002; 94003; 94640; 94664; 96365; 96375; C1769; C1874; C9113; J0171; J0360; J0456; J0461; J0692; J1940; J2060; J2250; J2405; J2543; J2765; J3010; J3370; J3475; J3480; J7030; J7040; J7050; J7613; J7685; P9017; Q9963; Q9967

== ENCOUNTER 2017-03-21 07:48 | Inpatient (IN) | payer OTHER ==
[2017-03-21] VITALS (13 sets, daily range): BP systolic 134–153; BP diastolic 62–88; PULSE 101–142; RESP 16–30; TEMP 99.9–102.1; O2SAT 94–100
[~2017-03-21] VITALS: Ht 165.1 cm; Wt 67.0 kg
[~2017-03-21 07:48] MED LIST changes: +AMLO10 PEG; +ATRO1SOL11 SL; -AUGM400S PEG; +CILO0.3S EACH EYE; +CLON.1 PO; +FLEE5TAB PO; +GUAI100S7 PO; +HYDR-3800 PO; +HYOS0.128 PO; +IPRASOL INH; +LORA-392 PO; +METO25TA3 PO; +OXYC1TAB63 PO; +POTA10SO12 PO; +TYLE325T PO; -[UNRECOGNIZED DRUG - CODE] G-TUBE
[2017-03-21] MEDS ORDERED: SODIUM CHLOR 0.9% 1000 ML INJ 100 ML IV ONE (07:55)
[2017-03-21] MEDS ORDERED: SODIUM CHLOR 0.9% 1000 ML INJ 1,000 ML IV ONE ×2 (07:55)
[2017-03-21] MEDS ORDERED: CEFEPIME INJ 2,000 MG in SODIUM CHLORIDE 0.9% INJ 100 ML IV ONE (08:00)
[2017-03-21] MEDS ORDERED: ACETAMINOPHEN 650 MG SUPP RECTAL ONE (08:00)
[2017-03-21] MEDS ORDERED: AZITHROMYCIN INJ 500 MG in SODIUM CHLOR 0.9% 250 ML INJ 250 ML IV ONE (08:00)
--- NOTE | 2017-03-21 08:03 | PD ---
HPI Chief Complaint: Fever Time Seen by Provider: 07:53 Travel History International Travel<30 days: No Contact w/Intl Traveler<30days: No Traveled to known affect area: No History of Present Illness HPI The patient is a 31-year-old male who presents to the emergency department via EMS from a residential for fever. The patient has a history of traumatic brain injury, is nonverbal, mental status his baseline according to EMS. The patient apparently was discharged from the hospital yesterday for fever after an extended hospitalization. Apparently the patient had a temperature earlier today when a 1.5 according to EMS. He also notes patient has a tracheostomy, G-tube, and is nonverbal. Upon arrival the patient is unable to provide any further information. PFSH Past Medical History Anxiety: Yes Cancer: No Diminished Hearing: No Endocrine: No Gastrointestinal Disorders: Yes (GASTROSTOMY STATUS ) Hypertension: Yes Immune Disorder: No Neurologic: Yes (ANOXIC BRAIN DAMAGE) Respiratory: Yes (TRACHEOSTOMY STATUS) Seizures: Yes (POST TRAUMATIC SEIZURE) Past Surgical History Abdominal Surgery: Yes (G/J TUBE PLACED) Cardiac Surgery: No Ear Surgery: No Endocrine Surgery: No Eye Surgery: No Genitourinary Surgery: No Gynecologic Surgery: No Oral Surgery: No Thoracic Surgery: No Other Surgery: Yes (TRACHEOSTOMY ) Social History Alcohol Use: No Tobacco Use: No Substance Use: No Allergies-Medications (Allergen,Severity, Reaction): Coded Allergies: haloperidol (Unverified Adverse Reaction, Severe, Seizures, 02/21/17) Reported Meds & Prescriptions Reported Meds & Active Scripts Active Levaquin (Levofloxacin) 500 Mg Tablet 500 Mg PEG DAILY 10 Days Norvasc (Amlodipine Besylate) 10 Mg Tab 10 Mg PEG DAILY Hydralazine HCl 50 Mg Tablet 50 Mg PO Q8HR Catapres (Clonidine) 0.1 Mg Tab 0.1 Mg PO Q6H PRN Reported Tylenol (Acetaminophen) 325 Mg Tab 650 Mg PO Q6H PRN Potassium Chloride Liq (Potassium Chloride) 20 Meq/15 Ml Soln 20 Meq PO BID Oxycodone-Acetaminophen 5-325 mg Tab 1 Tab PO Q6H PRN Metoprolol Tartrate 25 Mg Tab 25 Mg PO BID PRN Duoneb (Ipratropium-Albuterol Neb) 0.5-2.5 Mg/3 Ml Neb 1 Nebule INH DAILY Duoneb (Ipratropium-Albuterol Neb) 0.5-2.5 Mg/3 Ml Neb 1 Nebule INH Q4HR NEB Hyoscyamine (Hyoscyamine Sulfate) 0.125 Mg Tab 0.125 Mg PO Q4H Guaifenesin Liq (Guaifenesin) 100 mg/5 ML Soln 100 Mg PO Q4H PRN Ciloxan Opth Drops (Ciprofloxacin HCl) 0.3% Soln 1 Drop EACH EYE Q4H Bisacodyl EC (Bisacodyl) 5 Mg Tabec 5 Mg PO DAILY PRN Atropine Opth Drops 1% Soln 1 Drop SL Q12HR PRN Ativan (Lorazepam) 0.5 Mg Tab 0.5 Mg PO DAILY PRN Claritin Liq (Loratadine) 5 Mg/5 Ml Liq 5 Mg G-TUBE DAILY Baclofen 20 Mg Tab 20 Mg G-TUBE TID Pepcid (Famotidine) 20 Mg Tab 40 Mg G-TUBE DAILY Eliquis (Apixaban) 5 Mg Tab 5 Mg G-TUBE BID Ativan (Lorazepam) 1 Mg Tab 1 Mg G-TUBE Q4H PRN Keppra (Levetiracetam) 1,000 Mg Tab 1,000 Mg G-TUBE BID Review of Systems ROS Limitations: Clinical Condition, Speech Impaired Except as stated in HPI: all other systems reviewed are Neg General / Constitutional: Positive: Fever Physical Exam Exam Limitations: Clinical Condition Narrative GENERAL: 31-year-old Peg male who opens his eyes spontaneously but is nonverbal. SKIN: Focused skin assessment warm/dry. Warm to the touch. HEAD: Atraumatic. Normocephalic. EYES: Right pupil is 5 mm and sluggish. Left pupil is 6 mm and questionably reactive. ENT: No nasal bleeding or discharge. Mucous membranes pink and moist. NECK: Trachea midline. No JVD. Tracheostomy in place. CARDIOVASCULAR: Regular, tachycardic with a heart rate of 110. RESPIRATORY: Tachypnea with a respiratory rate of 22. Diminished breath sounds with crackles in the right base. GASTROINTESTINAL: Abdomen soft, feeding tube in place. Genitourinary: Circumcised phallus, no Ospina catheter in place. Wet diaper noted. Back: No visible sacral decubitus ulcers. MUSCULOSKELETAL: The patient is flexed at the right elbow with contractures. The left elbow is flexed and the left wrist is flexed with contractures. The lower extremities are extended. NEUROLOGICAL: Opens eyes, nonverbal, does not follow commands. PSYCHIATRIC: Unable to assess. Data Data Last Documented VS Vital Signs Date Time Temp Pulse Resp B/P (MAP) Pulse Ox O2 Delivery O2 Flow Rate FiO2 03/21/17 12:27 100 T-piece 5.00 28 03/21/17 11:41 102.0 129 24 134/62 (86) Orders Orders Electrocardiogram (03/21/17 07:55) Complete Blood Count With Diff (03/21/17 07:55) Comprehensive Metabolic Panel (03/21/17 07:55) Lactic Acid Sepsis Protocol (03/21/17 07:55) Ckmb (Isoenzyme) Profile (03/21/17 07:55) Urinalysis - C+S If Indicated (03/21/17 07:55) Influenzae A/B Antigen (03/21/17 07:55) Blood Culture (03/21/17 07:55) Chest, Single Ap (03/21/17 07:55) Blood Gas Venous (Vbg) (03/21/17 07:55) Blood Glucose (03/21/17 07:55) Ecg Monitoring (03/21/17 07:55) Iv Access Insert/Monitor (03/21/17 07:55) Oximetry (03/21/17 07:55) Oxygen Administration (03/21/17 07:55) Acetaminophen Supp (Tylenol Supp) (03/21/17 08:00) Sodium Chlor 0.9% 1000 Ml Inj (Ns 1000 M (03/21/17 07:55) Sodium Chlor 0.9% 1000 Ml Inj (Ns 1000 M (03/21/17 07:55) Sodium Chlor 0.9% 1000 Ml Inj (Ns 1000 M (03/21/17 07:55) Cefepime Inj (Maxipime Inj) (03/21/17 08:00) Azithromycin Inj (Zithromax Inj) (03/21/17 08:00) Urine Culture (03/21/17 08:05) CKMB (03/21/17 08:05) CKMB% (03/21/17 08:05) Lorazepam Inj (Ativan Inj) (03/21/17 10:15) Albuterol-Ipratropium Neb (Duoneb Neb) (03/21/17 11:45) Chest, Single Ap (03/21/17 ) Ketorolac Inj (Toradol Inj) (03/21/17 11:45) Lorazepam Inj (Ativan Inj) (03/21/17 12:15) Propranolol (Inderal) (03/21/17 14:00) Procalcitonin (03/21/17 12:37) Admit Order (Ed Use Only) (03/21/17 12:42) Labs Laboratory Tests Test 03/21/17 08:05 White Blood Count 14.6 TH/MM3 Red Blood Count 3.70 MIL/MM3 Hemoglobin 11.1 GM/DL Hematocrit 34.0 % Mean Corpuscular Volume 92.1 FL Mean Corpuscular Hemoglobin 30.1 PG Mean Corpuscular Hemoglobin Concent 32.7 % Red Cell Distribution Width 12.4 % Platelet Count 236 TH/MM3 Mean Platelet Volume 10.8 FL Neutrophils (%) (Auto) 85.0 % Lymphocytes (%) (Auto) 4.5 % Monocytes (%) (Auto) 10.2 % Eosinophils (%) (Auto) 0.1 % Basophils (%) (Auto) 0.2 % Neutrophils # (Auto) 12.4 TH/MM3 Lymphocytes # (Auto) 0.7 TH/MM3 Monocytes # (Auto) 1.5 TH/MM3 Eosinophils # (Auto) 0.0 TH/MM3 Basophils # (Auto) 0.0 TH/MM3 CBC Comment DIFF FINAL Differential Comment Urine Color YELLOW Urine Turbidity CLEAR Urine pH 6.5 Urine Specific [place] 1.029 Urine Protein 30 mg/dL Urine Glucose (UA) NEG mg/dL Urine Ketones TRACE mg/dL Urine Occult Blood NEG Urine Nitrite NEG Urine Bilirubin NEG Urine Urobilinogen 4.0 MG/DL Urine Leukocyte Esterase TRACE Urine RBC 2 /hpf Urine WBC 6 /hpf Urine Squamous Epithelial Cells <1 /hpf Urine Bacteria RARE /hpf Urine Hyaline Casts 1 /lpf Urine Mucus FEW /lpf Microscopic Urinalysis Comment CATH-CULTURE IND Blood Gas Puncture Site VENOUS Blood Gas Patient Temperature 98.6 Venous Blood pH 7.51 Venous Blood Partial Pressure CO2 28 mmHg Venous Blood Partial Pressure O2 114 mmHg Venous Blood HCO3 22 mmol/L Venous Blood Oxygen Saturation 97 % Venous Blood Oxygen Content 15.0 Vol % Venous Blood Base Excess -0.5 mmol/L Blood Gas Inspired Oxygen 21 % Blood Urea Nitrogen 18 MG/DL Creatinine 0.81 MG/DL Random Glucose 99 MG/DL Total Protein 7.1 GM/DL Albumin 3.3 GM/DL Calcium Level 9.1 MG/DL Alkaline Phosphatase 94 U/L Aspartate Amino Transf (AST/SGOT) 30 U/L Alanine Aminotransferase (ALT/SGPT) 51 U/L Total Bilirubin 1.8 MG/DL Sodium Level 139 MEQ/L Potassium Level 3.9 MEQ/L Chloride Level 105 MEQ/L Carbon Dioxide Level 24.3 MEQ/L Anion Gap 10 MEQ/L Estimat Glomerular Filtration Rate 136 ML/MIN Lactic Acid Level 1.9 mmol/L Total Creatine Kinase 432 U/L Creatine Kinase MB 1.9 NG/ML Creatine Kinase MB % 0.4 % Procalcitonin 0.24 ng/mL [facility] Medical Decision Making Medical Screen Exam Complete: Yes Emergency Medical Condition: Yes Medical Record Reviewed: Yes Interpretation(s) EKG reveals sinus tachycardia with a heart rate of 111. Nonspecific ST changes. Laboratory Tests Test 03/21/17 08:05 White Blood Count 14.6 TH/MM3 Red Blood Count 3.70 MIL/MM3 Hemoglobin 11.1 GM/DL Hematocrit 34.0 % Mean Corpuscular Volume 92.1 FL Mean Corpuscular Hemoglobin 30.1 PG Mean Corpuscular Hemoglobin Concent 32.7 % Red Cell Distribution Width 12.4 % Platelet Count 236 TH/MM3 Mean Platelet Volume 10.8 FL Neutrophils (%) (Auto) 85.0 % Lymphocytes (%) (Auto) 4.5 % Monocytes (%) (Auto) 10.2 % Eosinophils (%) (Auto) 0.1 % Basophils (%) (Auto) 0.2 % Neutrophils # (Auto) 12.4 TH/MM3 Lymphocytes # (Auto) 0.7 TH/MM3 Monocytes # (Auto) 1.5 TH/MM3 Eosinophils # (Auto) 0.0 TH/MM3 Basophils # (Auto) 0.0 TH/MM3 CBC Comment DIFF FINAL Differential Comment Urine Color YELLOW Urine Turbidity CLEAR Urine pH 6.5 Urine Specific [place] 1.029 Urine Protein 30 mg/dL Urine Glucose (UA) NEG mg/dL Urine Ketones TRACE mg/dL Urine Occult Blood NEG Urine Nitrite NEG Urine Bilirubin NEG Urine Urobilinogen 4.0 MG/DL Urine Leukocyte Esterase TRACE Urine RBC 2 /hpf Urine WBC 6 /hpf Urine Squamous Epithelial Cells <1 /hpf Urine Bacteria RARE /hpf Urine Hyaline Casts 1 /lpf Urine Mucus FEW /lpf Microscopic Urinalysis Comment CATH-CULTURE IND Blood Gas Puncture Site VENOUS Blood Gas Patient Temperature 98.6 Venous Blood pH 7.51 Venous Blood Partial Pressure CO2 28 mmHg Venous Blood Partial Pressure O2 114 mmHg Venous Blood HCO3 22 mmol/L Venous Blood Oxygen Saturation 97 % Venous Blood Oxygen Content 15.0 Vol % Venous Blood Base Excess -0.5 mmol/L Blood Gas Inspired Oxygen 21 % Blood Urea Nitrogen 18 MG/DL Creatinine 0.81 MG/DL Random Glucose 99 MG/DL Total Protein 7.1 GM/DL Albumin 3.3 GM/DL Calcium Level 9.1 MG/DL Alkaline Phosphatase 94 U/L Aspartate Amino Transf (AST/SGOT) 30 U/L Alanine Aminotransferase (ALT/SGPT) 51 U/L Total Bilirubin 1.8 MG/DL Sodium Level 139 MEQ/L Potassium Level 3.9 MEQ/L Chloride Level 105 MEQ/L Carbon Dioxide Level 24.3 MEQ/L Anion Gap 10 MEQ/L Estimat Glomerular Filtration Rate 136 ML/MIN Lactic Acid Level 1.9 mmol/L Total Creatine Kinase 432 U/L Creatine Kinase MB 1.9 NG/ML Creatine Kinase MB % 0.4 % Chest x-ray reveals mild increased perihilar interstitial markings consistent with mild pulmonary vascular congestion versus pneumonia. Clinical correlation is recommended. Cardiomegaly. Repeat chest x-ray revealed minimal central pulmonary vascular congestion. Cardiomegaly. Degenerative changes and scoliosis of the thoracolumbar spine. Differential Diagnosis Differential diagnosis includes sepsis, aspiration pneumonia, complicated urinary tract infection, bacteremia, central fever, cholecystitis, appendicitis , meningitis. Narrative Course IV was established, labs are drawn and sent, and the patient was placed on cardiac telemetry monitoring and continuous pulse oximetry monitoring. EKG was ordered and interpreted. Chest x-ray was obtained. Blood cultures and lactic acid were sent to lab. 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 I reviewed the patient's previous hospitalization, he was hospitalized in February and just discharged yesterday. The patient did have sputum cultures which grew Pseudomonas and blood cultures which grew Streptococcus V. I reviewed the patient's infectious disease recommendations on previous admission with treatment consisted of cefepime for Pseudomonas. 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 The patient was treated with antibiotic's, continue to have some low-grade fevers just prior to discharge, these may be fevers related to TAKER OFF as opposed to infectious disease. Chest x-ray reveals mild increased perihilar interstitial markings consistent with mild pulmonary vascular congestion versus pneumonia.. Influenza screen is negative. The patient recently had his gastrostomy jejunostomy tube change. His previous hospitalization. The patient's UA had 6 WBCs, culture pending, but I doubt source of fever. Patient's white count was elevated at 14.6, lactic acid is normal 1.9. I had a discussion with the mother and after discussion was agreed the patient would be placed on Levaquin and then discharged back to the residential. The Ospina catheter was removed. However, the patient then became diaphoretic, his heart rate came up to 135, and he had some reddish brown discharge from the tracheal site. The mother was concerned about the patient returning home to the residential. He is diaphoretic and tachycardic currently, does meet sepsis criteria. The patient was reevaluated 11:36 AM, his heart rate and went up to 140, he had tachypnea with a respiratory rate of 40. The patient already has a tracheostomy in place, however, his breathing has escalated, the patient's vitals are too unstable for the medical floor, therefore, the on-call jig borer was paged for admission. I discussed the patient with Dr. Echeverria at 12:15 PM who discussed the patient with the jig borer, Dr. Bahena, who took care of the patient on his last admission. Repeat chest x-ray reveals minimal central pulmonary vascular congestion, no significant changes. The patient's elevated heart rate and breathing may be related to seizures and/or central nervous system disorder from previous TBI. Critical Care Narrative Aggregate critical care time was 40 minutes. Time to perform other separately billable procedures was not included in the critical care time. My time did not include minutes spent treating any other patients simultaneously or on activities that did not directly contribute to the patient's treatment. The services I provided to this patient were to treat and/or prevent clinically significant deterioration that could result in: Anoxia, hypoxia, aspiration, septic shock, . I provided critical care services requiring my management, as noted below: Chart data review, documentation time, medication orders and management, vital sign assessments/reviewing monitor data, ordering and reviewing lab tests, ordering and interpreting/reviewing x-rays and diagnostic studies, care of the patient and discussion of the patient with the admitting physicians. Sepsis Criteria SIRS Criteria (2 or more): Temp > 100.9 or < 96.8, Heart rate over 90, WBC > 04321, < 4000 or > 10% bands Sepsis Criteria (SIRS+source): Infect source susp/known Criteria Outcome: Meets sepsis criteria Physician Communication Physician Communication I discussed the patient with Dr. Echeverria who agrees with admission. Diagnosis Primary Impression: Febrile illness Additional Impressions: Leukocytosis Qualified Codes: D72.829 - Elevated white blood cell count, unspecified Pneumonia Qualified Codes: J18.9 - Pneumonia, unspecified organism Sepsis Qualified Codes: A41.52 - Sepsis due to Pseudomonas Admitting Information Admitting Physician Requests: Admit Patient Instructions: General Instructions Additional Instructions: Levaquin as directed. Head of bed up at 30. Follow-up with primary physician. Return if symptoms worsen or progress. Med/Other Pt SpecificInfo: Prescription(s) given Scripts Levofloxacin (Levaquin) 500 Mg Tablet 500 MG PEG DAILY for Infection for 10 Days, #10 TAB 0 Refills Prov: Ganesh Howard MD 03/21/17 Condition: Stable Ganesh Howard MD Mar 21, 2017 08:03
[2017-03-21 08:12] LABS: BLOOD GAS VENOUS BASE EXCESS -0.5 mmol/L (-2-2); BLOOD GAS VENOUS HCO3 22 mmol/L (22-26); BLOOD GAS VENOUS O2 HGB SAT 97 % (70-76); BLOOD GAS VENOUS PCO2 28 mmHg (44-48); BLOOD GAS VENOUS PO2 114 mmHg (35-40); BLOOD GAS VENOUS pH 7.51 (7.360-7.400); CRITICAL VALUE YES; TEMP CORR TO 98.6
[2017-03-21 08:13] LABS: DRAW SITE VENOUS; FIO2 21 %; STAT YES
[2017-03-21 08:53] LABS: BACTERIA, URINE RARE /hpf; BLOOD, URINE NEG (NEG); GLUCOSE,URINE NEG (NEG); HYALINE CAST, URINE 1 /lpf (RARE); KETONE, URINE TRACE mg/dL (NEG); MUCUS URINE FEW /lpf (OCC); NITRITE,URINE NEG (NEG); PH, URINE 6.5 (5.0-8.5); SQUAMOUS EPITHELIAL CELL URINE <1 /hpf (0-5); URINE COLOR YELLOW (YELLW/STRAW)
[2017-03-21 08:55] LABS: COMMENT (UR) CATH-CULTURE IND; CULTURE IF INDICATED CATH CULTURE IND
[2017-03-21 09:01] LABS: AUTOMATED NEUTROPHIL # 12.4 TH/MM3 (1.8-7.7); BASOPHIL % 0.2 % (0.0-2.0); EOSINOPHIL % 0.1 % (0.0-4.0); HEMO FLAGS DIFF FINAL; LYMPH % 4.5 % (9.0-44.0); LYMPHOCYTE # 0.7 TH/MM3 (1.0-4.8); MEAN CELL VOLUME 92.1 FL (80.0-100.0); MEAN CORPUSCULAR HEMOGLOBIN 30.1 PG (27.0-34.0); MEAN CORPUSCULAR HGB CONC 32.7 % (32.0-36.0); MONO % 10.2 % (0.0-8.0); PLATELET COUNT 236 TH/MM3 (150-450); RED CELL DISTRIBUTION WIDTH 12.4 % (11.6-17.2); WHITE BLOOD COUNT 14.6 TH/MM3 (4.0-11.0)
[2017-03-21 09:34] LABS: ANION GAP 10 MEQ/L (5-15); AST (GOT) 30 U/L (15-37); BICARBONATE 24.3 MEQ/L (21.0-32.0); BLOOD UREA NITROGEN 18 MG/DL (7-18); CHLORIDE 105 MEQ/L (98-107); GLOMERULAR FILTRATION RATE 136 ML/MIN (>89); POTASSIUM 3.9 MEQ/L (3.5-5.1); SODIUM (NA) 139 MEQ/L (136-145)
[2017-03-21 09:35] LABS: ALT (GPT) 51 U/L (12-78)
[2017-03-21 09:36] LABS: ALKALINE PHOSPHATASE 94 U/L (45-117); CREATINE KINASE 432 U/L (39-308); TOTAL BILIRUBIN ADULT 1.8 MG/DL (0.2-1.0)
--- NOTE | 2017-03-21 09:52 | RADRPT ---
EXAM DATE/TIME: 03/21/2017 08:25 [facility] COMPARISON: CHEST SINGLE AP, March 09, 2017, 12:45. INDICATIONS : Fever and vomiting. MEDICAL HISTORY : Hypertension. Seizures. SURGICAL HISTORY : Tracheostomy. Gastrostomy. GJ tube placement. ENCOUNTER: Initial ACUITY: 1 day PAIN SCORE: Non-responsive. LOCATION: Bilateral lateral FINDINGS: A tracheostomy tube is noted in good position 4 cm above the kiki. The heart is mildly enlarged. Mild increased perihilar interstitial infiltrates are noted consistent with pulmonary vascular conges tion versus pneumonia. Clinical correlation is recommended. No focal alveolar consolidation is note d. Degenerative changes and scoliosis of the thoracolumbar spine are noted. CONCLUSION: 1. Mild increased perihilar interstitial markings consistent with mild pulmonary vascular congestion versus pneumonia. Clinical correlation is recommended. 2. Cardiomegaly. Peter Nolan MD on March 21, 2017 at 9:18 Board Certified Radiologist. This report was verified electronically.
[2017-03-21 09:57] LABS: CKMB 1.9 NG/ML (0.5-3.6)
[2017-03-21] MEDS ORDERED: LEVA500T20 PEG (10:07)
[2017-03-21] MEDS ORDERED: LORazepam 2 MG/ML VIAL IV PUSH ONE ×2 (10:15→12:15)
[2017-03-21] MEDS ORDERED: KETOROLAC TROMETHAMINE 30 MG/ML (IVP) VIAL IV PUSH ONE (11:45)
[2017-03-21] MEDS ORDERED: RESP: ALBUTEROL 2.5 MG/IPRATROPIUM 0.5 MG NEB (SCH) NEB ONE (11:45)
--- NOTE | 2017-03-21 12:26 | RADRPT ---
EXAM DATE/TIME: 03/21/2017 11:50 [facility] COMPARISON: CHEST SINGLE AP, March 21, 2017, 8:25. INDICATIONS : Shortness of breath. MEDICAL HISTORY : Hypertension. Seizures SURGICAL HISTORY : Tracheostomy. Gastrostomy. GJ tube placement ENCOUNTER: Subsequent ACUITY: 1 day PAIN SCORE: Non-responsive. LOCATION: Bilateral chest FINDINGS: A gastric jejunostomy tube is noted with its tip in the left upper quadrant. Tracheostomy tube has i ts tip in good position 4 cm above the kiki. The heart remains enlarged.. Minimal pulmonary vascu lar congestion is noted. Degenerative changes and scoliosis of the thoracolumbar spine are noted. CONCLUSION: 1. Minimal central pulmonary vascular congestion. 2. Cardiomegaly. 3. Degenerative changes and scoliosis of the thoracolumbar spine. Peter Nolan MD on March 21, 2017 at 12:11 Board Certified Radiologist. This report was verified electronically.
[2017-03-21] MEDS ORDERED: MAGNESIUM SULFATE INJ 2 GM in SODIUM CHLORIDE 0.9% INJ 96 ML IV PRN (12:45)
[2017-03-21] MEDS ORDERED: POTASSIUM PHOSPHATE MONOBASIC 500 MG TAB PO/TUBE PRN (12:45)
[2017-03-21] MEDS ORDERED: Vancomycin Consult Pharmacy 1 EA OTHER SCH (12:45)
[2017-03-21] MEDS ORDERED: cloNIDine HCL 0.1 MG TAB PO PRN (12:45)
[2017-03-21] MEDS ORDERED: POTASSIUM PHOSPHATE INJ 30 MMOL in SODIUM CHLOR 0.9% 250 ML INJ 250 ML IV PRN (12:45)
[2017-03-21] MEDS ORDERED: POTASSIUM CHLOR 20 MEQ PREMIX 100 ML IV PRN (12:45)
[2017-03-21] MEDS ORDERED: MISCELLANEOUS NURSING INFORMATION XX SCH (12:45)
[2017-03-21] MEDS ORDERED: POTASSIUM CHLOR 40 MEQ PREMIX 100 ML IV PRN ×2 (12:45)
[2017-03-21] MEDS ORDERED: CHLORHEXIDINE GLUCONATE 2 % 1 PACK (2 CLOTHS) TOP PRN (12:45)
[2017-03-21] MEDS ORDERED: POTASSIUM PHOSPHATE MONOBASIC 500 MG TAB PO PRN (12:45)
[2017-03-21] MEDS ORDERED: MAGNESIUM SULFATE INJ 4 GM in SODIUM CHLORIDE 0.9% INJ 92 ML IV PRN (12:45)
[2017-03-21] MEDS ORDERED: VANCOMYCIN INJ 1,250 MG in SODIUM CHLOR 0.9% 250 ML INJ 250 ML IV ONE (12:45)
[2017-03-21] MEDS ORDERED: SODIUM PHOSPHATE INJ 30 MMOL in SODIUM CHLOR 0.9% 250 ML INJ 240 ML IV PRN (12:45)
[2017-03-21] MEDS ORDERED: ACETAMINOPHEN 325 MG TAB PO PRN (12:45)
[2017-03-21] MEDS ORDERED: MAGNESIUM OXIDE 400 MG TAB PO PRN (12:45)
--- NOTE | 2017-03-21 12:49 | HHI.HP ---
HPI Service Critical Care Medicine Primary Care Physician Unknown Admission Diagnosis sepsis, tachycardia NOS, leukocytosis, febrile illness Diagnosis: Travel History International Travel<30 Days: No Contact w/Intl Traveler <30 Da: No Traveled to Known Affected Are: No History of Present Illness This is a 31yM with history of severe traumatic brain injury and severe neurologic deficit in persistent vegetative state who was recently admitted and discharged from our facility after a 3 week hospital stay for pseudomonas pneumonia. He was discharged yesterday to his SNF and re-presents today with fever and tachycardia. per his mother, he gets tachycardic any time he gets agitated. He was running low-grade temperatures up to 100.3F at our facility, but today is > 102 F. He has no change in sputum production, oxygen requirement , or any other symptoms. His wbc is elevated, but near baseline for him over the last few weeks. Procalcitonin level is 0.24 suggestive against an acute bacterial infection. Patient is persistently chronically encephalopathic and can answer no additional information. Mother is concerned that he "just doesn't look right" but cannot identify any additional changes since he left yesterday. Review of Systems ROS Limitations: Clinical Condition, Unresponsive Past Family Social History Allergies: Coded Allergies: haloperidol (Unverified Adverse Reaction, Severe, Seizures, 02/21/17) Past Medical History Chronic tracheostomy Chronic NOAC use History of left upper extremity DVT Recurrent aspiration pneumonia Hypertension Dyslipidemia History of pancreatitis/pseudocyst Diabetes mellitus Chronic narcotic use Chronic muscle relaxant use Past Surgical History Status post tracheostomy with revision by Dr. Walls 2015 Status post GJ tube Reported Medications Potassium Acetate 2 Meq/Ml Inj 20 Meq G-TUBE BID Claritin Liq (Loratadine) 5 Mg/5 Ml Liq 5 Mg G-TUBE DAILY Baclofen 20 Mg Tab 20 Mg G-TUBE TID Pepcid (Famotidine) 20 Mg Tab 40 Mg G-TUBE DAILY Eliquis (Apixaban) 5 Mg Tab 5 Mg G-TUBE BID Ativan (Lorazepam) 1 Mg Tab 1 Mg G-TUBE Q4H PRN Keppra (Levetiracetam) 1,000 Mg Tab 1,000 Mg G-TUBE BID Active Ordered Medications See MAR Family History Mother is alive with no medical problems. Social History No tobacco, alcohol or IV drug use Physical Exam Vital Signs Vital Signs Date Time Temp Pulse Resp B/P (MAP) Pulse Ox O2 Delivery O2 Flow Rate FiO2 03/21/17 12:27 100 T-piece 5.00 28 03/21/17 11:49 99 Trach Collar 5.00 28 03/21/17 11:41 102.0 129 24 134/62 (86) 95 Non-Rebreather 7.00 03/21/17 09:43 110 20 145/67 (93) 95 Non-Rebreather 7.00 03/21/17 08:06 96 Non-Rebreather 7.00 03/21/17 08:06 96 Partial Rebreather 7.00 03/21/17 07:57 102.1 114 20 137/86 (103) 96 Partial Rebreather 7.00 03/21/17 07:57 20 98 Partial Rebreather 10.00 03/21/17 07:53 102.1 20 Physical Exam GENERAL: Encephalopathic and contracted middle-aged male, lying in bed, comatose HEENT: Normocephalic. Atraumatic. Pupils equal, round, reactive, conjugate. Mucous membranes are moist NECK: Trachea is midline. There is no JVD. CHEST: Equal chest rise. Unlabored. Trach collar at 5 L minute CARDIOVASCULAR: Tachycardic rate, regular rhythms sinus by telemetry ABDOMEN: Soft, nontender, nondistended. No guarding. MUSCULOSKELETAL: Pulses 2+. No peripheral edema. NEUROLOGICAL: RASS -4. Does not follow commands. Does not withdraw to pain. Of note: I last personally evaluate the patient on 03/07/17 and my physical exam today is completely unchanged from the physical exam on that date. In addition , I contacted Dr. Arellano who last physically examine the patient on 2016 and his report of his documented physical exam is identical to mine today. Laboratory Laboratory Tests Test 03/21/17 08:05 White Blood Count 14.6 Red Blood Count 3.70 Hemoglobin 11.1 Hematocrit 34.0 Mean Corpuscular Volume 92.1 Mean Corpuscular Hemoglobin 30.1 Mean Corpuscular Hemoglobin Concent 32.7 Red Cell Distribution Width 12.4 Platelet Count 236 Mean Platelet Volume 10.8 Neutrophils (%) (Auto) 85.0 Lymphocytes (%) (Auto) 4.5 Monocytes (%) (Auto) 10.2 Eosinophils (%) (Auto) 0.1 Basophils (%) (Auto) 0.2 Neutrophils # (Auto) 12.4 Lymphocytes # (Auto) 0.7 Monocytes # (Auto) 1.5 Eosinophils # (Auto) 0.0 Basophils # (Auto) 0.0 CBC Comment DIFF FINAL Differential Comment Urine Color YELLOW Urine Turbidity CLEAR Urine pH 6.5 Urine Specific [place] 1.029 Urine Protein 30 Urine Glucose (UA) NEG Urine Ketones TRACE Urine Occult Blood NEG Urine Nitrite NEG Urine Bilirubin NEG Urine Urobilinogen 4.0 Urine Leukocyte Esterase TRACE Urine RBC 2 Urine WBC 6 Urine Squamous Epithelial Cells <1 Urine Bacteria RARE Urine Hyaline Casts 1 Urine Mucus FEW Microscopic Urinalysis Comment CATH-CULTURE IND Blood Gas Puncture Site VENOUS Blood Gas Patient Temperature 98.6 Venous Blood pH 7.51 Venous Blood Partial Pressure CO2 28 Venous Blood Partial Pressure O2 114 Venous Blood HCO3 22 Venous Blood Oxygen Saturation 97 Venous Blood Oxygen Content 15.0 Venous Blood Base Excess -0.5 Blood Gas Inspired Oxygen 21 Blood Urea Nitrogen 18 Creatinine 0.81 Random Glucose 99 Total Protein 7.1 Albumin 3.3 Calcium Level 9.1 Alkaline Phosphatase 94 Aspartate Amino Transf (AST/SGOT) 30 Alanine Aminotransferase (ALT/SGPT) 51 Total Bilirubin 1.8 Sodium Level 139 Potassium Level 3.9 Chloride Level 105 Carbon Dioxide Level 24.3 Anion Gap 10 Estimat Glomerular Filtration Rate 136 Lactic Acid Level 1.9 Total Creatine Kinase 432 Creatine Kinase MB 1.9 Creatine Kinase MB % 0.4 Date/Time Source Procedure Growth Status 03/21/17 08:05 Blood Peripheral Aerobic Blood Culture Pending Received 03/21/17 08:05 Blood Peripheral Anaerobic Blood Culture Pending Received 03/21/17 08:15 Nasal Aspirate Influenza Types A,B Antigen (DEMETRIUS) - Final NEGATIVE FOR FLU A AND B ANTIGEN.... Complete 03/21/17 08:05 Urine Catheterized Urine Urine Culture Pending Received Result Diagram: 03/21/17 0805 03/21/17 0805 Imaging Last Impressions Chest X-Ray 03/21/17 0755 Signed Impressions: Service Date/Time: Tuesday, March 21, 2017 08:25 - CONCLUSION: 1. Mild increased perihilar interstitial markings consistent with mild pulmonary vascular congestion versus pneumonia. Clinical correlation is recommended. 2. Cardiomegaly. MD Esequiel Roachi VTE Risk Assessment Caprini VTE Risk Assessment: Mod/High Risk (score >= 2) Caprini Risk Assessment Model Point Value = 1 Point Value = 2 Point Value = 3 Point Value = 5 Age 41-60 Minor surgery BMI > 25 kg/m2 Swollen legs Varicose veins or History of unexplained or recurrent spontaneous Oral contraceptives or hormone replacement Sepsis (< 1 month) Serious lung disease, including pneumonia (< 1 month) Abnormal pulmonary function Acute myocardial infarction Congestive heart failure (< 1 month) History of inflammatory bowel disease Medical patient at bed rest Age 61-74 Arthroscopic surgery Major open surgery (> 45 min) Laparoscopic surgery (> 45 min) Malignancy Confined to bed (> 72 hours) Immobilizing plaster cast Central venous access Age >= 75 History of VTE Family history of VTE Factor V Leiden Prothrombin [id number] Lupus anticoagulant Anticardiolipin antibodies Elevated serum homocysteine Heparin-induced thrombocytopenia Other congenital or acquired thrombophilia Stroke (< 1 month) Elective arthroplasty Hip, pelvis, or leg fracture Acute spinal cord injury (< 1 month) Prophylaxis Regimen Total Risk Factor Score Risk Level Prophylaxis Regimen 0-1 Low Early ambulation 2 Moderate Order ONE of the following: *Sequential Compression Device (SCD) *Heparin 5000 units SQ BID 3-4 Higher Order ONE of the following medications: *Heparin 5000 units SQ TID *Enoxaparin/Lovenox 40 mg SQ daily (WT < 150 kg, CrCl > 30 mL/min) *Enoxaparin/Lovenox 30 mg SQ daily (WT < 150 kg, CrCl > 10-29 mL/min) *Enoxaparin/Lovenox 30 mg SQ BID (WT < 150 kg, CrCl > 30 mL/min) AND/OR *Sequential Compression Device (SCD) 5 or more Highest Order ONE of the following medications: *Heparin 5000 units SQ TID (Preferred with Epidurals) *Enoxaparin/Lovenox 40 mg SQ daily (WT < 150 kg, CrCl > 30 mL/min) *Enoxaparin/Lovenox 30 mg SQ daily (WT < 150 kg, CrCl > 10-29 mL/min) *Enoxaparin/Lovenox 30 mg SQ BID (WT < 150 kg, CrCl > 30 mL/min) AND *Sequential Compression Device (SCD) Assessment and Plan Assessment and Plan Assessment: 31yM with history of severe traumatic brain injury with encephalopathy who presents with fever and tachycardia. He is fully anticoagulated, and although he has DVTs, PE would be unlikely. In addition, we would not do any additional measures for PE. For tachycardia standpoint, his mother does state that every time he gets agitated he is tachycardic. We' ve given 2 mg of IV Ativan and his heart rate is down significantly. In addition his Pro calcitonin is relatively low making a new bacterial infection quite unlikely. We will send off sputum and broaden his antibiotics, but I suspect his lungs are colonized with bacteria, and anything the grocery sputum is likely colonization and not an acute infection. I do think she is reasonable to watch him in the inpatient setting overnight given his mother's concern, but if he remains stable and we can control his tachycardia from and agitation standpoint, I think we can safely send him home tomorrow. Sinus tachycardia - likely secondary to agitation - schedule ativan 1mg po TID - propranolol 20mg po q6h Fevers - likely central at this point - procalcitonin 0.24 - broaden to vanc/cefepime/flagyl - send durbin cultures - ID consult - unlikely to be acute infectious etiology admit to ICU. continue home meds. Viktor Smith MD Mar 21, 2017 12:49
--- NOTE | 2017-03-21 13:59 | EKG ---
Date Performed: 03/21/2017 Time Performed: 08:14:27 PTAGE: 31 years EKG: SINUS TACHYCARDIA NONSPECIFIC ST ELEVATION ABNORMAL RHYTHM ECG Compared to prior electrocar diogram, rate has increased PREVIOUS TRACING : 03/19/2017 16.27 DOCTOR: Madhu Mckenzie Interpretating Date/Time 03/21/2017 13:58:28
[2017-03-21] MEDS: VANCOMYCIN 1,000 MG/NS 250 ML IV SCH ×4 (14:10→21:24)
[2017-03-21] MEDS: PROPRANOLOL HCL 10 MG TAB PO SCH ×2 (14:35→21:25)
[2017-03-21] MEDS: metroNIDAZOLE 500 MG INJ 100 ML IV SCH ×2 (15:26→20:39)
[2017-03-21] MEDS: hydrALAZINE HCL 50 MG TAB PO SCH ×2 (15:26→20:40)
[2017-03-21] MEDS: BACLOFEN 20 MG TAB G-TUBE SCH ×2 (15:26→18:00)
[2017-03-21] MEDS: RESP: ALBUTEROL 2.5 MG/IPRATROPIUM 0.5 MG NEB (SCH) INH ×2 (16:07→20:49)
--- NOTE | 2017-03-21 17:54 | PD.CONS ---
History of Present Illness Service Infectious disease Consult Requested By Dr Oswaldo Smith Reason for Consult Evaluate patient with fevers Primary Care Physician Unknown Diagnoses: History of Present Illness Patient seen and examined. Records reviewed. Patient is a 31-year-old male, who is in a chronic vegetative state due to anoxic brain injury, has a chronic trach, sites in a long-term facility, brought into the hospital for evaluation of fever. Patient was recently hospitalized from February 21 to March 20. At that time he had strep viridans bacteremia due to a midline, and he was treated for Pseudomonas pneumonia. He was initially on the respirator, and subsequently weaned and was placed on his usual T piece. He has some intermittent low-grade temps prior to him being discharged to the alf. Apparently in the alf his temperature went up higher up to 102, so the patient was brought back to the hospital for further evaluation and treatment. His WBC is slightly up at 14. Urinalysis is unremarkable. Chest x-ray showing some perihilar infiltrates. Patient has a lot of oral secretions. He remains on T piece. Neurological status is unchanged and that is there is no significant interaction. Infectious disease consultation has been requested to evaluate the patient. Review of Systems ROS Limitations: Clinical Condition, Unresponsive Past Family Social History Allergies: Coded Allergies: haloperidol (Unverified Adverse Reaction, Severe, Seizures, 02/21/17) Past Medical History Chronic tracheostomy Recurrent aspiration pneumonia History of left upper extremity DVT Hypertension Hyperlipidemia Previous history of pancreatitis and pseudocyst Diabetes mellitus History of MVR oh infection, MRSA, ESBL positive organism Past Surgical History Status post trach, and revision Status post GJ tube placement and revision Active Ordered Medications Tylenol Albuterol Norvasc Eliquis Baclofen Cefepime Clonidine Pepcid Hydralazine Claritin Ativan Magnesium Flagyl Potassium Sanam-Colace Vancomycin Family History Unremarkable Social History Resides in the alf No smoking No alcohol abuse No illicit drug Physical Exam Vital Signs Vital Signs Date Time Temp Pulse Resp B/P (MAP) Pulse Ox O2 Delivery O2 Flow Rate FiO2 03/21/17 17:29 117 20 142/88 (106) 98 Trach Collar 5.00 03/21/17 15:20 101 16 153/86 (108) 96 T-piece 5.00 03/21/17 13:29 101.6 134 24 140/72 (94) 100 Trach Collar 7.00 03/21/17 12:27 100 T-piece 5.00 28 03/21/17 11:49 99 Trach Collar 5.00 28 03/21/17 11:41 102.0 129 24 134/62 (86) 95 Non-Rebreather 7.00 03/21/17 09:43 110 20 145/67 (93) 95 Non-Rebreather 7.00 03/21/17 08:06 96 Non-Rebreather 7.00 03/21/17 08:06 96 Partial Rebreather 7.00 03/21/17 07:57 102.1 114 20 137/86 (103) 96 Partial Rebreather 7.00 03/21/17 07:57 20 98 Partial Rebreather 10.00 03/21/17 07:53 102.1 20 Physical Exam GENERAL: Patient is a well-nourished, well-developed male, no interaction, not in respiratory distress. On T piece, has a lot of oral secretions, clear SKIN: Warm and dry. No generalized rash, no ecchymoses and no evidence of embolic lesions. HEAD: Atraumatic. Normocephalic. No temporal wasting, or tenderness. EYES: [place] conjunctiva. No petechia or hemorrhage. Pupils equal, round and reactive to light. No scleral icterus. No injection or drainage. EARS, NOSE AND THROAT: Nose without bleeding or purulent nasal discharge. Mucous membranes moist. NECK: Tracheostomy site looks okay. Supple and not tender, no meningeal signs CARDIOVASCULAR: Regular rate and rhythm. Tachycardic No murmurs, rubs or gallops heard RESPIRATORY: Clear to auscultation. Breath sounds equal bilaterally. No rales , wheezing or rhonchi. Decreased breath sounds at the bases ABDOMEN: Soft, nondistended, no reaction to palpation.. Bowel sounds present and normoactive. PEG site looks okay. EXTREMITIES: No clubbing, cyanosis, or edema. Both feet are dorsiflexed. Well perfused and warm. NEUROLOGICAL: No interaction. Extremities are spastic. PSYCHIATRIC: Unable to assess LINE: No evidence of infection : [place] catheter in place, urine looks clear Laboratory Laboratory Tests Test 03/21/17 08:05 White Blood Count 14.6 Red Blood Count 3.70 Hemoglobin 11.1 Hematocrit 34.0 Mean Corpuscular Volume 92.1 Mean Corpuscular Hemoglobin 30.1 Mean Corpuscular Hemoglobin Concent 32.7 Red Cell Distribution Width 12.4 Platelet Count 236 Mean Platelet Volume 10.8 Neutrophils (%) (Auto) 85.0 Lymphocytes (%) (Auto) 4.5 Monocytes (%) (Auto) 10.2 Eosinophils (%) (Auto) 0.1 Basophils (%) (Auto) 0.2 Neutrophils # (Auto) 12.4 Lymphocytes # (Auto) 0.7 Monocytes # (Auto) 1.5 Eosinophils # (Auto) 0.0 Basophils # (Auto) 0.0 CBC Comment DIFF FINAL Differential Comment Urine Color YELLOW Urine Turbidity CLEAR Urine pH 6.5 Urine Specific [place] 1.029 Urine Protein 30 Urine Glucose (UA) NEG Urine Ketones TRACE Urine Occult Blood NEG Urine Nitrite NEG Urine Bilirubin NEG Urine Urobilinogen 4.0 Urine Leukocyte Esterase TRACE Urine RBC 2 Urine WBC 6 Urine Squamous Epithelial Cells <1 Urine Bacteria RARE Urine Hyaline Casts 1 Urine Mucus FEW Microscopic Urinalysis Comment CATH-CULTURE IND Blood Gas Puncture Site VENOUS Blood Gas Patient Temperature 98.6 Venous Blood pH 7.51 Venous Blood Partial Pressure CO2 28 Venous Blood Partial Pressure O2 114 Venous Blood HCO3 22 Venous Blood Oxygen Saturation 97 Venous Blood Oxygen Content 15.0 Venous Blood Base Excess -0.5 Blood Gas Inspired Oxygen 21 Blood Urea Nitrogen 18 Creatinine 0.81 Random Glucose 99 Total Protein 7.1 Albumin 3.3 Calcium Level 9.1 Alkaline Phosphatase 94 Aspartate Amino Transf (AST/SGOT) 30 Alanine Aminotransferase (ALT/SGPT) 51 Total Bilirubin 1.8 Sodium Level 139 Potassium Level 3.9 Chloride Level 105 Carbon Dioxide Level 24.3 Anion Gap 10 Estimat Glomerular Filtration Rate 136 Lactic Acid Level 1.9 Total Creatine Kinase 432 Creatine Kinase MB 1.9 Creatine Kinase MB % 0.4 Procalcitonin 0.24 Date/Time Source Procedure Growth Status 03/21/17 08:05 Blood Peripheral Aerobic Blood Culture Pending Received 03/21/17 08:05 Blood Peripheral Anaerobic Blood Culture Pending Received 03/21/17 08:15 Nasal Aspirate Influenza Types A,B Antigen (DEMETRIUS) - Final NEGATIVE FOR FLU A AND B ANTIGEN.... Complete 03/21/17 08:05 Urine Catheterized Urine Urine Culture Pending Received Result Diagram: 03/21/17 0805 03/21/17 0805 Imaging RADIOLOGY STUDIES/FILMS REVIEWED Chest X-Ray 03/21/17 0755 Signed Impressions: Service Date/Time: Tuesday, March 21, 2017 08:25 - CONCLUSION: 1. Mild increased perihilar interstitial markings consistent with mild pulmonary vascular congestion versus pneumonia. Clinical correlation is recommended. 2. Cardiomegaly. Peter Nolan MD Assessment and Plan Assessment and Plan IMPRESSION Sepsis, recurrent, very suspicious for pulmonary, ?plugging - CXR with some new perihilar infiltrates Recent Rx for PSAE PNA Hx MDRO infections with MRSA and ESBL+ Chronic vegetative state from anoxic injury Chronic respiratory failure, S/P trach Recent Rx for Strep viridans bacteremia from midline Hx DVT both UE RECOMMENDATION Agree with current Abx : Vanco, Cefepime and Flagyl Follow new C/S ?if he will benefit from bronch Adjust Abx once C/S back Follow temps Monitor progress I will follow along with you Thank you for this consultation Michelle Reynolds MD Mar 21, 2017 17:54
[2017-03-21] MEDS: LORazepam 1 MG TAB PO SCH ×2 (19:45→21:24)
[2017-03-21] MEDS: DOCUSATE SODIUM 50 MG/SENNA 8.6 MG TAB PO SCH (20:40)
[2017-03-21] MEDS: levETIRAcetam 500 MG TAB G-TUBE SCH (20:40)
[2017-03-21] MEDS: APIXABAN 5 MG TABLET G-TUBE SCH (20:40)
[2017-03-21] MEDS: CEFEPIME INJ 2,000 MG in SODIUM CHLORIDE 0.9% INJ 100 ML IV SCH (20:40)
[2017-03-21] MEDS: LORazepam 2 MG/ML VIAL IV PUSH PRN (21:25)
[2017-03-22] VITALS (14 sets, daily range): BP systolic 105–170; BP diastolic 51–95; PULSE 76–121; RESP 10–32; TEMP 98.9–100.3; O2SAT 95–100
[2017-03-22] MEDS: PROPRANOLOL HCL 20 MG TAB PO SCH ×4 (00:08→18:34)
[2017-03-22] MEDS: RESP: ALBUTEROL 2.5 MG/IPRATROPIUM 0.5 MG NEB (SCH) INH ×4 (02:48→21:50)
[2017-03-22] MEDS: metroNIDAZOLE 500 MG INJ 100 ML IV SCH ×4 (02:54→20:29)
[2017-03-22] MEDS: CEFEPIME INJ 2,000 MG in SODIUM CHLORIDE 0.9% INJ 100 ML IV SCH ×3 (04:00→20:28)
[2017-03-22] MEDS: CHLORHEXIDINE GLUCONATE 2 % 1 PACK (2 CLOTHS) TOP SCH (04:00)
[2017-03-22] MEDS: hydrALAZINE HCL 50 MG TAB PO SCH ×3 (05:05→22:22)
[2017-03-22] MEDS: VANCOMYCIN 1,000 MG/NS 250 ML IV SCH ×6 (05:05→22:00)
[2017-03-22] MEDS: LORazepam 1 MG TAB PO SCH ×3 (05:05→22:30)
[2017-03-22] MEDS: LORazepam 2 MG/ML VIAL IV PUSH PRN ×3 (05:13→15:37)
[2017-03-22] MEDS: DOCUSATE SODIUM 50 MG/SENNA 8.6 MG TAB PO SCH ×2 (08:57→20:29)
[2017-03-22] MEDS: APIXABAN 5 MG TABLET G-TUBE SCH ×2 (08:57→20:29)
[2017-03-22] MEDS: FAMOTIDINE 20 MG TAB G-TUBE SCH (08:57)
[2017-03-22] MEDS: levETIRAcetam 500 MG TAB G-TUBE SCH ×2 (08:57→20:29)
[2017-03-22] MEDS: BACLOFEN 20 MG TAB G-TUBE SCH ×3 (08:57→18:34)
[2017-03-22] MEDS: LORATADINE 10 MG TAB G-TUBE SCH (08:58)
[2017-03-22] MEDS ORDERED: LORATADINE 5 MG G-TUBE SCH (09:00)
[2017-03-22] MEDS ORDERED: PHARMACY ORDERED LAB ONE ×2 (13:45→21:45)
[2017-03-22 13:59] LABS: HEMATOCRIT 34.6 % (39.0-51.0); MEAN CELL VOLUME 93.3 FL (80.0-100.0); MEAN CORPUSCULAR HEMOGLOBIN 31.2 PG (27.0-34.0); MEAN CORPUSCULAR HGB CONC 33.4 % (32.0-36.0); PLATELET COUNT 213 TH/MM3 (150-450); RED BLOOD COUNT 3.71 MIL/MM3 (4.50-5.90); RED CELL DISTRIBUTION WIDTH 12.5 % (11.6-17.2); REVIEW FLAG FINAL; WHITE BLOOD COUNT 8.9 TH/MM3 (4.0-11.0)
[2017-03-22 14:21] LABS: BICARBONATE 20.4 MEQ/L (21.0-32.0); POTASSIUM 3.5 MEQ/L (3.5-5.1)
--- NOTE | 2017-03-22 15:49 | HHI.CCPN ---
Subjective Remarks/Hospital Course Hospital Course: This is a 31yM with history of severe traumatic brain injury and severe neurologic deficit in persistent vegetative state who was recently admitted and discharged from our facility after a 3 week hospital stay for pseudomonas pneumonia. He was discharged yesterday to his SNF and re-presents today with fever and tachycardia. per his mother, he gets tachycardic any time he gets agitated. He was running low-grade temperatures up to 100.3F at our facility, but today is > 102 F. He has no change in sputum production, oxygen requirement , or any other symptoms. His wbc is elevated, but near baseline for him over the last few weeks. Procalcitonin level is 0.24 suggestive against an acute bacterial infection. Patient is persistently chronically encephalopathic and can answer no additional information. Mother is concerned that he "just doesn't look right" but cannot identify any additional changes since he left yesterday. Subjective: 03/22: no changes. HR came down appropriately. non-toxic appearing. fevers are lower, but persistent, now about where they were when he left the hospital last week. Talking with his mother, she is still concerned about the fevers and feels like he is not completely back to baseline. will consider keeping inpatient another day, although on my physical exam, he is stable and at baseline from prior exams. Objective Vital Signs Date Time Temp Pulse Resp B/P (MAP) Pulse Ox O2 Delivery O2 Flow Rate FiO2 03/22/17 14:00 93 03/22/17 12:00 99.2 32 115/77 (90) 95 03/22/17 08:19 T-piece 28 03/21/17 17:29 5.00 Intake and Output 03/22/17 03/22/17 03/23/17 08:00 16:00 00:00 Intake Total 1171 ml Output Total 1300 ml Balance -129 ml Result Diagram: 03/22/17 1336 03/22/17 1336 Other Results Microbiology Date/Time Source Procedure Growth Status 03/21/17 08:15 Nasal Aspirate Influenza Types A,B Antigen (DEMETRIUS) - Final NEGATIVE FOR FLU A AND B ANTIGEN.... Complete Imaging Last Impressions Chest X-Ray 03/21/17 8789 Signed Impressions: Service Date/Time: Tuesday, March 21, 2017 08:25 - CONCLUSION: 1. Mild increased perihilar interstitial markings consistent with mild pulmonary vascular congestion versus pneumonia. Clinical correlation is recommended. 2. Cardiomegaly. Peter Nolan MD Objective Remarks GENERAL: Encephalopathic and contracted middle-aged male, lying in bed, comatose HEENT: Normocephalic. Atraumatic. Pupils equal, round, reactive, conjugate. Mucous membranes are moist NECK: Trachea is midline. There is no JVD. CHEST: Equal chest rise. Unlabored. Trach collar at 5 L minute CARDIOVASCULAR: Tachycardic rate, regular rhythms sinus by telemetry ABDOMEN: Soft, nontender, nondistended. No guarding. MUSCULOSKELETAL: Pulses 2+. No peripheral edema. NEUROLOGICAL: RASS -4. Does not follow commands. Does not withdraw to pain. Of note: I last personally evaluate the patient on 03/07/17 and my physical exam today is completely unchanged from the physical exam on that date. In addition , I contacted Dr. Arellano who last physically examine the patient on 2016 and his report of his documented physical exam is identical to mine today. A/P Assessment and Plan Assessment: 31yM with history of severe traumatic brain injury with encephalopathy who presents with fever and tachycardia. Continue broad spectrum abx until cultures are negative x 48h. will keep inpatient an additional day at mother's request given her concern over fever curve. Sinus tachycardia - likely secondary to agitation - schedule ativan 1mg po TID - propranolol 20mg po q6h - prn ativan iv for breakthrough agitation/tachycardia. Fevers - likely central at this point - procalcitonin 0.24 - broaden to vanc/cefepime/flagyl - send durbin cultures - ID consult - unlikely to be acute infectious etiology continue home meds. transfer to hospitalist services. Viktor Smith MD Mar 22, 2017 15:49
[2017-03-23] VITALS (15 sets, daily range): BP systolic 87–118; BP diastolic 48–88; PULSE 48–107; RESP 16–23; TEMP 98–99.6; O2SAT 94–100
[2017-03-23] MEDS: PROPRANOLOL HCL 20 MG TAB PO SCH ×4 (00:21→17:16)
[2017-03-23] MEDS: CHLORHEXIDINE GLUCONATE 2 % 1 PACK (2 CLOTHS) TOP SCH (04:00)
[2017-03-23] MEDS: RESP: ALBUTEROL 2.5 MG/IPRATROPIUM 0.5 MG NEB (SCH) INH ×4 (04:02→21:12)
[2017-03-23] MEDS: metroNIDAZOLE 500 MG INJ 100 ML IV SCH ×4 (04:18→20:44)
[2017-03-23] MEDS: CEFEPIME INJ 2,000 MG in SODIUM CHLORIDE 0.9% INJ 100 ML IV SCH ×3 (04:19→20:42)
[2017-03-23] MEDS: hydrALAZINE HCL 50 MG TAB PO SCH ×3 (06:00→20:45)
[2017-03-23 06:21] LABS: BICARBONATE 19.9 MEQ/L (21.0-32.0)
[2017-03-23 06:33] LABS: POTASSIUM 3.6 MEQ/L (3.5-5.1)
[2017-03-23] MEDS: LORazepam 1 MG TAB PO SCH ×3 (06:34→20:45)
[2017-03-23] MEDS: VANCOMYCIN 1,000 MG/NS 250 ML IV SCH ×2 (06:35)
[2017-03-23] MEDS: BACLOFEN 20 MG TAB G-TUBE SCH ×3 (09:00→17:16)
[2017-03-23] MEDS: DOCUSATE SODIUM 50 MG/SENNA 8.6 MG TAB PO SCH ×2 (09:00→20:44)
[2017-03-23] MEDS: LORATADINE 10 MG TAB G-TUBE SCH (09:00)
[2017-03-23] MEDS: FAMOTIDINE 20 MG TAB G-TUBE SCH (09:00)
[2017-03-23] MEDS: APIXABAN 5 MG TABLET G-TUBE SCH ×2 (09:00→20:45)
[2017-03-23] MEDS: levETIRAcetam 500 MG TAB G-TUBE SCH ×2 (09:00→20:50)
--- NOTE | 2017-03-23 09:06 | HHI.PR ---
Subjective Remarks This is a 31yM with history of severe traumatic brain injury and severe neurologic deficit in persistent vegetative state who was recently admitted and discharged from our facility after a 3 week hospital stay for pseudomonas pneumonia. He was discharged yesterday to his SNF and re-presents today with fever and tachycardia. per his mother, he gets tachycardic any time he gets agitated. He was running low-grade temperatures up to 100.3F at our facility, but today is > 102 F. He has no change in sputum production, oxygen requirement , or any other symptoms. His wbc is elevated, but near baseline for him over the last few weeks. Procalcitonin level is 0.24 suggestive against an acute bacterial infection. Patient is persistently chronically encephalopathic and can answer no additional information. Mother is concerned that he "just doesn't look right" but cannot identify any additional changes since he left yesterday. 03/22: no changes. HR came down appropriately. non-toxic appearing. fevers are lower, but persistent, now about where they were when he left the hospital last week. Talking with his mother, she is still concerned about the fevers and feels like he is not completely back to baseline. will consider keeping inpatient another day, although on my physical exam, he is stable and at baseline from prior exams. 03-23 PATIENT TRANSFERRED TO OUR SERVICE TODAY REMAINS NON VERBAL SOME FEVERS HAS BEEN SEEN BY BERT RANDHAWA RN CHART REVIEWED Objective Vitals Vital Signs Date Time Temp Pulse Resp B/P (MAP) Pulse Ox O2 Delivery O2 Flow Rate FiO2 03/23/17 06:00 81 03/23/17 04:00 48 03/23/17 04:00 98.2 48 22 87/48 (61) 100 03/23/17 02:00 69 03/23/17 00:00 98.0 63 23 96/54 (68) 100 03/23/17 00:00 63 03/22/17 22:00 76 03/22/17 21:50 100 T-piece 28 03/22/17 20:00 81 03/22/17 20:00 98.9 81 23 120/61 (80) 100 03/22/17 18:00 93 03/22/17 16:00 98.9 89 22 110/59 (76) 99 03/22/17 16:00 93 03/22/17 14:00 93 03/22/17 12:00 99.2 100 32 115/77 (90) 95 03/22/17 12:00 100 03/22/17 10:00 101 I/O 03/22/17 03/22/17 03/22/17 03/23/17 03/23/17 03/23/17 07:00 15:00 23:00 07:00 15:00 23:00 Intake Total 1171 ml 300 ml 370 ml 240 ml Output Total 1300 ml 1200 ml 700 ml Balance -129 ml 300 ml -830 ml -460 ml Intake IV Total 1171 ml 300 ml 250 ml Tube Irrigant 240 ml Other 120 ml Output Urine Total 1300 ml 1200 ml 700 ml Stool Total 0 ml # Bowel Movements 0 0 Result Diagram: 03/22/17 1336 03/23/17 0506 Other Results Laboratory Tests Test 03/21/17 08:05 03/21/17 20:15 03/22/17 13:36 03/22/17 23:15 White Blood Count 14.6 TH/MM3 8.9 TH/MM3 Red Blood Count 3.70 MIL/MM3 3.71 MIL/MM3 Hemoglobin 11.1 GM/DL 11.6 GM/DL Hematocrit 34.0 % 34.6 % Mean Corpuscular Volume 92.1 FL 93.3 FL Mean Corpuscular Hemoglobin 30.1 PG 31.2 PG Mean Corpuscular Hemoglobin Concent 32.7 % 33.4 % Red Cell Distribution Width 12.4 % 12.5 % Platelet Count 236 TH/MM3 213 TH/MM3 Mean Platelet Volume 10.8 FL 10.4 FL Neutrophils (%) (Auto) 85.0 % Lymphocytes (%) (Auto) 4.5 % Monocytes (%) (Auto) 10.2 % Eosinophils (%) (Auto) 0.1 % Basophils (%) (Auto) 0.2 % Neutrophils # (Auto) 12.4 TH/MM3 Lymphocytes # (Auto) 0.7 TH/MM3 Monocytes # (Auto) 1.5 TH/MM3 Eosinophils # (Auto) 0.0 TH/MM3 Basophils # (Auto) 0.0 TH/MM3 CBC Comment DIFF FINAL Differential Comment Urine Color YELLOW Urine Turbidity CLEAR Urine pH 6.5 Urine Specific [place] 1.029 Urine Protein 30 mg/dL Urine Glucose (UA) NEG mg/dL Urine Ketones TRACE mg/dL Urine Occult Blood NEG Urine Nitrite NEG Urine Bilirubin NEG Urine Urobilinogen 4.0 MG/DL Urine Leukocyte Esterase TRACE Urine RBC 2 /hpf Urine WBC 6 /hpf Urine Squamous Epithelial Cells <1 /hpf Urine Bacteria RARE /hpf Urine Hyaline Casts 1 /lpf Urine Mucus FEW /lpf Microscopic Urinalysis Comment CATH-CULTURE IND Blood Gas Puncture Site VENOUS Blood Gas Patient Temperature 98.6 Venous Blood pH 7.51 Venous Blood Partial Pressure CO2 28 mmHg Venous Blood Partial Pressure O2 114 mmHg Venous Blood HCO3 22 mmol/L Venous Blood Oxygen Saturation 97 % Venous Blood Oxygen Content 15.0 Vol % Venous Blood Base Excess -0.5 mmol/L Blood Gas Inspired Oxygen 21 % Blood Urea Nitrogen 18 MG/DL 15 MG/DL Creatinine 0.81 MG/DL 0.70 MG/DL Random Glucose 99 MG/DL 67 MG/DL Total Protein 7.1 GM/DL Albumin 3.3 GM/DL Calcium Level 9.1 MG/DL 8.4 MG/DL Alkaline Phosphatase 94 U/L Aspartate Amino Transf (AST/SGOT) 30 U/L Alanine Aminotransferase (ALT/SGPT) 51 U/L Total Bilirubin 1.8 MG/DL Sodium Level 139 MEQ/L 140 MEQ/L Potassium Level 3.9 MEQ/L 3.5 MEQ/L Chloride Level 105 MEQ/L 108 MEQ/L Carbon Dioxide Level 24.3 MEQ/L 20.4 MEQ/L Anion Gap 10 MEQ/L 12 MEQ/L Estimat Glomerular Filtration Rate 136 ML/MIN 160 ML/MIN Lactic Acid Level 1.9 mmol/L Total Creatine Kinase 432 U/L Creatine Kinase MB 1.9 NG/ML Creatine Kinase MB % 0.4 % Procalcitonin 0.24 ng/mL Nasal Screen MRSA (PCR) MRSA DETECTED Vancomycin Level Trough 11.3 MCG/ML Test 03/23/17 05:06 Blood Urea Nitrogen 10 MG/DL Creatinine 0.60 MG/DL Random Glucose 65 MG/DL Calcium Level 9.0 MG/DL Sodium Level 138 MEQ/L Potassium Level 3.6 MEQ/L Chloride Level 107 MEQ/L Carbon Dioxide Level 19.9 MEQ/L Anion Gap 11 MEQ/L Estimat Glomerular Filtration Rate 192 ML/MIN Imaging Last Impressions Chest X-Ray 03/21/17 6102 Signed Impressions: Service Date/Time: Tuesday, March 21, 2017 08:25 - CONCLUSION: 1. Mild increased perihilar interstitial markings consistent with mild pulmonary vascular congestion versus pneumonia. Clinical correlation is recommended. 2. Cardiomegaly. Peter Nolan MD Objective Remarks GENERAL: NOT AWAKE OR ALERT-- FOLLOWS NO COMMANDS SKIN: Warm and dry. SWEATING HEAD: Atraumatic. Normocephalic. EYES: Pupils equal and round. No scleral icterus. No injection or drainage. ENT: No nasal bleeding or discharge. Mucous membranes pink and moist. NECK: Trachea midline. No JVD. TRACHEOSTOMY IN PLACE CARDIOVASCULAR: Regular rate and rhythm. S1, S2 NO S3 OR S4 NO HEAVE OR THRILL RESPIRATORY: No accessory muscle use. Clear to auscultation. Breath sounds equal bilaterally. GASTROINTESTINAL: Abdomen soft, non-tender, nondistended. Hepatic and splenic margins not palpable. PEG MUSCULOSKELETAL: Extremities without clubbing, cyanosis, or edema. No obvious deformities. NEUROLOGICAL: Awake and NOT alert. No obvious cranial nerve deficits. PERSISTENT VEGETATIVE STATE- NOT ABLE TO ASSESS PSYCHIATRIC: INAppropriate mood and affect; insight and judgment ABnormal. PERSISTENT VEGETATIVE STATE Medications and IVs Current Medications Acetaminophen (Tylenol Supp) 650 mg ONCE ONCE RECTAL Last administered on 03/21 09:21; Start 03/21/17 at 08:00; Stop 03/21/17 at 08:01; Status DC Sodium Chloride 1,000 ml @ 1,000 mls/hr Q1H ONCE IV Last administered on 09:20; Start 03/21/17 at 07:55; Stop 03/21/17 at 08:54; Status DC Sodium Chloride 1,000 ml @ 1,000 mls/hr Q1H ONCE IV Last administered on 09:21; Start 03/21/17 at 07:55; Stop 03/21/17 at 08:54; Status DC Sodium Chloride 100 ml @ 1,000 mls/hr Q6M ONCE IV Last administered on 09:21; Start 03/21/17 at 07:55; Stop 03/21/17 at 08:00; Status DC Cefepime HCl 2000 mg/Sodium Chloride 100 ml @ 200 mls/hr ONCE ONCE IV Last administered on 03/21/17 09:52; Start 03/21/17 at 08:00; Stop 03/21/17 at 08:29 ; Status DC Azithromycin 500 mg/Sodium Chloride 250 ml @ 250 mls/hr ONCE ONCE IV Last administered on 03/21/17 09:21; Start 03/21/17 at 08:00; Stop 03/21/17 at 08:59 ; Status DC Lorazepam (Ativan Inj) 1 mg ONCE ONCE IV PUSH Last administered on 03/21/17 11:54; Start 03/21/17 at 10:15; Stop 03/21/17 at 10:16; Status DC Albuterol/ Ipratropium (Duoneb Neb) 1 ampule ONCE ONCE NEB Last administered on 03/21/17 11:49; Start 03/21/17 at 11:45; Stop 03/21/17 at 11:46; Status DC Ketorolac Tromethamine (Toradol Inj) 30 mg ONCE ONCE IV PUSH Last administered on 03/21/17 11:55; Start 03/21/17 at 11:45; Stop 03/21/17 at 11:46 ; Status DC Lorazepam (Ativan Inj) 1 mg ONCE ONCE IV PUSH Last administered on 03/21/17 13:37; Start 03/21/17 at 12:15; Stop 03/21/17 at 12:16; Status DC Propranolol HCl (Inderal) 10 mg Q8HR PO Last administered on 03/21/17 21:25; Start 03/21/17 at 14:00; Stop 03/21/17 at 22:00; Status DC Magnesium Oxide (Mag-Ox) 800 mg UNSCH PRN PO For Magnesium 1.2 - 1.6 mg/dL; Start 03/21/17 at 12:45 Magnesium Sulfate 4 gm/Sodium Chloride 100 ml @ 50 mls/hr UNSCH PRN IV For Magnesium 0.9 - 1.1 mg/dL; Start 03/21/17 at 12:45 Magnesium Sulfate 2 gm/Sodium Chloride 100 ml @ 50 mls/hr UNSCH PRN IV For Magnesium 1.2 - 1.6 mg/dL; Start 03/21/17 at 12:45 Potassium Chloride 100 ml @ 50 mls/hr Q2H PRN IV For Potassium 2.8 - 3.2 mEq/L ; Start 03/21/17 at 12:45 Potassium Chloride 100 ml @ 50 mls/hr Q2H PRN IV For Potassium 3.3 - 3.5 mEq/L ; Start 03/21/17 at 12:45 Potassium Chloride 100 ml @ 50 mls/hr Q2H PRN IV For Potassium 2.8 - 3.2 mEq/L ; Start 03/21/17 at 12:45 Potassium Chloride 100 ml @ 25 mls/hr UNSCH PRN IV For Potassium 3.3 - 3.5 mEq /L; Start 03/21/17 at 12:45 Potassium Phosphate (K-Phos) 2,000 mg Q4H PRN PO For Phosphorus < 2.5 mg/dL; Start 03/21/17 at 12:45 Potassium Phosphate (K-Phos) 2,000 mg UNSCH PRN PO/TUBE SEE LABEL COMMENTS; Start 03/21/17 at 12:45 Potassium Phosphate 30 mmol/ Sodium Chloride 260 ml @ 42 mls/hr UNSCH PRN IV SEE LABEL COMMENTS; Start 03/21/17 at 12:45 Sodium Phosphate 30 mmol/Sodium Chloride 250 ml @ 42 mls/hr UNSCH PRN IV For Phosphorus < 2.5 mg/dL; Start 03/21/17 at 12:45 Albuterol/ Ipratropium (Duoneb Neb) 1 ampule Q6HR NEB INH Last administered on 03/23/17 04:02; Start 03/21/17 at 16:00 Albuterol/ Ipratropium (Duoneb Neb) 1 ampule Q2HR NEB PRN INH WHEEZING; Start 03/21/17 at 12:45 Acetaminophen (Tylenol) 650 mg Q6H PRN PO PAIN 1-10 AND/OR FEVER >101F Last administered on 03/21/17 21:24; Start 03/21/17 at 12:45 Lorazepam (Ativan Inj) 1 mg Q1H PRN IV PUSH Agitation/Sedation Last administered on 03/22/17 15:37; Start 03/21/17 at 12:45 Miscellaneous Information 1 [id number] XX Last administered on 03/21/17 12:45; Start 03/21/17 at 12:45 Chlorhexidine Gluconate (Chlorhexidine 2% Cloth) 3 pack Taper DAILY@04 TOP ; Start 03/22/17 at 04:00; Stop 03/18/18 at 03:59 Chlorhexidine Gluconate (Chlorhexidine 2% Cloth) 3 pack UNSCH PRN TOP HYGIENIC CARE; Start 03/21/17 at 12:45 Senna/Docusate Sodium (Sanam-Colace) 1 tab BID PO Last administered on 20:29; Start 03/21/17 at 21:00 Cefepime HCl 2000 mg/Sodium Chloride 100 ml @ 200 mls/hr Q8H IV Last administered on 03/23/17 04:19; Start 03/21/17 at 20:00 Vancomycin HCl 1250 mg/Sodium Chloride 262.5 ml @ 250 mls/hr ONCE ONCE IV ; Start 03/21/17 at 12:45; Stop 03/21/17 at 13:47; Status UNV Pharmacy Profile Note 0 ml @ 0 mls/hr UNSCH OTHER ; Start 03/21/17 at 12:45 Metronidazole 100 ml @ 100 mls/hr Q6H IV Last administered on 03/23/17 04:18 ; Start 03/21/17 at 15:00 Amlodipine Besylate (Norvasc) 10 mg DAILY PEG Last administered on 03/22/17 08 :57; Start 03/22/17 at 09:00 Apixaban (Eliquis) 5 mg BID G-TUBE Last administered on 03/22/17 20:29; Start 03/21/17 at 21:00 Baclofen (Lioresal) 20 mg TID G-TUBE Last administered on 03/22/17 18:34; Start 03/21/17 at 13:00 Clonidine (Catapres) 0.1 mg Q6H PRN PO SBP>160, DBP>90; Start 03/21/17 at 12:45 Famotidine (Pepcid) 40 mg DAILY G-TUBE Last administered on 03/22/17 08:57; Start 03/22/17 at 09:00 Hydralazine HCl (Apresoline) 50 mg Q8HR PO Last administered on 03/22/17 22:22 ; Start 03/21/17 at 14:00 Levetriacetam (Keppra) 1,000 mg BID G-TUBE Last administered on 03/22/17 20:29 ; Start 03/21/17 at 21:00 Non-Formulary Medication 5 mg DAILY G-TUBE ; Start 03/22/17 at 09:00; Status UNV Vancomycin HCl 1000 mg/Sodium Chloride 250 ml @ 250 mls/hr Q8H IV Last administered on 03/21/17 21:24; Start 03/21/17 at 14:00; Stop 03/21/17 at 23:59 ; Status DC Loratadine (Claritin) 5 mg DAILY G-TUBE Last administered on 03/22/17 08:58; Start 03/22/17 at 09:00 Vancomycin HCl 1000 mg/Sodium Chloride 250 ml @ 250 mls/hr Q8H IV Last administered on 03/23/17 06:35; Start 03/22/17 at 06:00 Propranolol HCl (Inderal) 20 mg Q6HR PO Last administered on 03/23/17 00:21; Start 03/22/17 at 00:00 Lorazepam (Ativan) 1 mg Q8HR PO Last administered on 03/23/17 06:34; Start at 19:45 Miscellaneous Information SPECIFIC LAB TO BE DRAWN:VANCOMY... ONCE ONCE .XX ; Start 03/22/17 at 13:45; Stop 03/22/17 at 13:51; Status DC Miscellaneous Information SPECIFIC LAB TO BE DRAWN:VANCOMY... ONCE ONCE .XX Last administered on 03/22/17 21:45; Start 03/22/17 at 21:45; Stop 03/22/17 at 21:46; Status DC Urinary Catheter: Yes Assessment to: Continue Ospina insert reason: Obstruction/Retention A/P Assessment and Plan Assessment: 31yM with history of severe traumatic brain injury with encephalopathy who presents with fever and tachycardia. Continue broad spectrum abx until cultures are negative x 48h. will keep inpatient an additional day at mother's request given her concern over fever curve. Sinus tachycardia - likely secondary to agitation - schedule ativan 1mg po TID - propranolol 20mg po q6h - prn ativan iv for breakthrough agitation/tachycardia. Fevers - likely central at this point - procalcitonin 0.24 - broaden to vanc/cefepime/flagyl - send durbin cultures - ID consult - unlikely to be acute infectious etiology HYPERTENSION- HOME MEDS DYSPHAGIA -SP PEG CHRONIC PERSISTENT VEGETATIVE STATE AFTER TBI RESTART TUBE FEEDS HX MDRO continue home meds. Discharge Planning NEEDS ID CLEARANCE Hudson Luz DO Mar 23, 2017 09:06
[2017-03-23 09:30] LABS: HEMATOCRIT 34.1 % (39.0-51.0); MEAN CELL VOLUME 93.5 FL (80.0-100.0); MEAN CORPUSCULAR HEMOGLOBIN 31.1 PG (27.0-34.0); MEAN CORPUSCULAR HGB CONC 33.2 % (32.0-36.0); PLATELET COUNT 158 TH/MM3 (150-450); RED BLOOD COUNT 3.65 MIL/MM3 (4.50-5.90); RED CELL DISTRIBUTION WIDTH 12.8 % (11.6-17.2); REVIEW FLAG FINAL; WHITE BLOOD COUNT 4.2 TH/MM3 (4.0-11.0)
[2017-03-23] MEDS ORDERED: guaiFENesin SOLUTION 200 MG/10 ML CUP PO PRN (10:00)
[2017-03-23] MEDS ORDERED: METOPROLOL TARTRATE 25 MG TAB PO PRN (10:00)
--- NOTE | 2017-03-23 13:55 | HHI.IDPN ---
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 Sp hospitalization from February 21 to March 20. At that time he had strep viridans bacteremia due to a midline, and he was treated for Pseudomonas pneumonia. He was initially on the respirator, and subsequently weaned and was placed on his usual T piece. He has some intermittent low-grade temps prior to him being discharged to the care home. Apparently in the care home his temperature went up higher up to 102, so the patient was brought back to the hospital for further evaluation and treatment. His WBC is slightly up at 14. Urinalysis is unremarkable. Chest x-ray showing some perihilar infiltrates. Patient has a lot of oral secretions. He remains on T piece. Neurological status is unchanged and that is there is no significant interaction. today he is afebile, not much secretons, stable blood pressure, no diarrhea Antibiotics vanco cefepime flagy; Allergies: Coded Allergies: haloperidol (Unverified Adverse Reaction, Severe, Seizures, 02/21/17) Objective . Vital Signs Date Time Temp Pulse Resp B/P (MAP) Pulse Ox O2 Delivery O2 Flow Rate FiO2 03/23/17 12:00 98.5 76 16 118/61 (80) 96 03/23/17 12:00 93 03/23/17 10:32 100 T-piece 28 03/23/17 10:16 98 T-piece 28 03/23/17 10:00 93 03/23/17 08:00 98.5 75 16 100/88 (92) 96 03/23/17 08:00 93 03/23/17 06:00 81 03/23/17 04:00 48 03/23/17 04:00 98.2 48 22 87/48 (61) 100 03/23/17 02:00 69 03/23/17 00:00 98.0 63 23 96/54 (68) 100 03/23/17 00:00 63 03/22/17 22:00 76 03/22/17 21:50 100 T-piece 28 03/22/17 20:00 81 03/22/17 20:00 98.9 81 23 120/61 (80) 100 03/22/17 18:00 93 03/22/17 16:00 98.9 89 22 110/59 (76) 99 03/22/17 16:00 93 03/22/17 14:00 93 03/23/17 03/23/17 03/24/17 15:00 23:00 07:00 Intake Total 350 ml Balance 350 ml Intake IV Total 350 ml . Laboratory Tests Test 03/22/17 13:36 03/23/17 07:35 White Blood Count 8.9 TH/MM3 4.2 TH/MM3 Red Blood Count 3.71 MIL/MM3 3.65 MIL/MM3 Hemoglobin 11.6 GM/DL 11.3 GM/DL Hematocrit 34.6 % 34.1 % Mean Corpuscular Volume 93.3 FL 93.5 FL Mean Corpuscular Hemoglobin 31.2 PG 31.1 PG Mean Corpuscular Hemoglobin Concent 33.4 % 33.2 % Red Cell Distribution Width 12.5 % 12.8 % Platelet Count 213 TH/MM3 158 TH/MM3 Mean Platelet Volume 10.4 FL 10.7 FL Laboratory Tests Test 03/22/17 13:36 03/23/17 05:06 Blood Urea Nitrogen 15 MG/DL 10 MG/DL Creatinine 0.70 MG/DL 0.60 MG/DL Random Glucose 67 MG/DL 65 MG/DL Calcium Level 8.4 MG/DL 9.0 MG/DL Sodium Level 140 MEQ/L 138 MEQ/L Potassium Level 3.5 MEQ/L 3.6 MEQ/L Chloride Level 108 MEQ/L 107 MEQ/L Carbon Dioxide Level 20.4 MEQ/L 19.9 MEQ/L Anion Gap 12 MEQ/L 11 MEQ/L Estimat Glomerular Filtration Rate 160 ML/MIN 192 ML/MIN Microbiology Date/Time Source Procedure Growth Status 03/21/17 08:05 Blood Peripheral Aerobic Blood Culture - Preliminary NO GROWTH IN 2 DAYS Resulted 03/21/17 08:05 Blood Peripheral Anaerobic Blood Culture - Preliminary NO GROWTH IN 2 DAYS Resulted 03/21/17 08:00 Blood Peripheral Aerobic Blood Culture - Preliminary NO GROWTH IN 2 DAYS Resulted 03/21/17 08:00 Blood Peripheral Anaerobic Blood Culture - Preliminary NO GROWTH IN 2 DAYS Resulted 03/21/17 08:15 Nasal Aspirate Influenza Types A,B Antigen (DEMETRIUS) - Final NEGATIVE FOR FLU A AND B ANTIGEN.... Complete 03/21/17 08:05 Urine Catheterized Urine Urine Culture - Final NO GROWTH IN 48 HOURS. Complete Imaging Last Impressions Chest X-Ray 03/21/17 8492 Signed Impressions: Service Date/Time: Tuesday, March 21, 2017 08:25 - CONCLUSION: 1. Mild increased perihilar interstitial markings consistent with mild pulmonary vascular congestion versus pneumonia. Clinical correlation is recommended. 2. Cardiomegaly. Peter Nolan MD Physical Exam GENERAL: Patient is a well-nourished, well-developed male, no interaction, not in respiratory distress. On T piece, has a lot of oral secretions, clear SKIN: Warm and dry. No generalized rash, no ecchymoses and no evidence of embolic lesions. HEAD: Atraumatic. Normocephalic. EYES: [place] conjunctiva. No petechia or hemorrhage. Pupils equal, round and reactive to light. No scleral icterus. No injection or drainage. EARS, NOSE AND THROAT: Nose without bleeding or purulent nasal discharge. Mucous membranes moist. NECK: Tracheostomy in plce with thick juarez secretions CARDIOVASCULAR: Regular rate and rhythm. Tachycardic No murmurs, rubs or gallops heard RESPIRATORY: Clear to auscultation. Breath sounds equal bilaterally. No rales , wheezing or rhonchi. Decreased breath sounds at the bases ABDOMEN: Soft, nondistended, no reaction to palpation.. Bowel sounds present and normoactive. PEG site looks okay. EXTREMITIES: No clubbing, cyanosis, or edema. Both feet are dorsiflexed. Well perfused and warm. NEUROLOGICAL: No interaction. Extremities are spastic. PSYCHIATRIC: Unable to assess LINE: No evidence of infection : Ospina catheter in place, urine looks clear Assessment & Plan Remarks IMPRESSION Sepsis, recurrent, very suspicious for pulmonary, ?plugging - CXR with some new perihilar infiltrates - both fever and lekocytosis presenon admission are now resolved Recent Rx for PSAE PNA Hx MDRO infections with MRSA and ESBL+ Chronic vegetative state from anoxic injury Chronic respiratory failure, S/P trach Recent Rx for Strep viridans bacteremia from midline Hx DVT both UE RECOMMENDATION cont current Abx : Vanco, Cefepime and Flagyl Follow new C/S Follow temps Monitor progress chk spututm clx dw Ebony Fuentes MD Mar 23, 2017 13:55
[2017-03-23] MEDS: VANCOMYCIN INJ 1,250 MG in SODIUM CHLOR 0.9% 250 ML INJ 250 ML IV SCH ×2 (15:36→20:44)
[2017-03-24] VITALS (14 sets, daily range): BP systolic 91–116; BP diastolic 52–64; PULSE 53–108; RESP 7–24; TEMP 98.5–99.7; O2SAT 97–100
[2017-03-24] MEDS: RESP: ALBUTEROL 2.5 MG/IPRATROPIUM 0.5 MG NEB (SCH) INH ×7 (00:13→22:58)
[2017-03-24] MEDS: CEFEPIME INJ 2,000 MG in SODIUM CHLORIDE 0.9% INJ 100 ML IV SCH ×3 (02:42→20:02)
[2017-03-24] MEDS: metroNIDAZOLE 500 MG INJ 100 ML IV SCH ×4 (02:42→20:02)
[2017-03-24] MEDS: CHLORHEXIDINE GLUCONATE 2 % 1 PACK (2 CLOTHS) TOP SCH (04:00)
[2017-03-24] MEDS: VANCOMYCIN INJ 1,250 MG in SODIUM CHLOR 0.9% 250 ML INJ 250 ML IV SCH ×3 (05:18→20:02)
[2017-03-24] MEDS: LORazepam 1 MG TAB PO SCH ×3 (05:18→20:03)
[2017-03-24] MEDS: PROPRANOLOL HCL 20 MG TAB PO SCH ×4 (05:18→16:58)
[2017-03-24] MEDS: hydrALAZINE HCL 50 MG TAB PO SCH ×3 (05:18→20:03)
[2017-03-24 05:48] LABS: BASOPHIL % 0.4 % (0.0-2.0); EOSINOPHIL # 0.2 TH/MM3 (0-0.4); EOSINOPHIL % 3.2 % (0.0-4.0); HEMATOCRIT 33.5 % (39.0-51.0); HEMO FLAGS DIFF FINAL; LYMPH % 22.5 % (9.0-44.0); LYMPHOCYTE # 1.1 TH/MM3 (1.0-4.8); MEAN CORPUSCULAR HGB CONC 33.7 % (32.0-36.0); MONO % 14.5 % (0.0-8.0); NEUT % 59.4 % (16.0-70.0); PLATELET COUNT 189 TH/MM3 (150-450); RED BLOOD COUNT 3.64 MIL/MM3 (4.50-5.90); RED CELL DISTRIBUTION WIDTH 12.7 % (11.6-17.2)
[2017-03-24 06:04] LABS: ALT (GPT) 41 U/L (12-78); ANION GAP 9 MEQ/L (5-15); AST (GOT) 24 U/L (15-37); BICARBONATE 24.9 MEQ/L (21.0-32.0); BLOOD UREA NITROGEN 6 MG/DL (7-18); CHLORIDE 107 MEQ/L (98-107); GLOMERULAR FILTRATION RATE 181 ML/MIN (>89); MAGNESIUM 1.8 MG/DL (1.5-2.5); POTASSIUM 3.3 MEQ/L (3.5-5.1); SODIUM (NA) 141 MEQ/L (136-145)
[2017-03-24 06:13] LABS: ALKALINE PHOSPHATASE 81 U/L (45-117); FREE T4 1.27 NG/DL (0.76-1.46); TOTAL BILIRUBIN ADULT 0.4 MG/DL (0.2-1.0)
[2017-03-24] MEDS ORDERED: POTASSIUM PHOSPHATE MONOBASIC 500 MG TAB PO/TUBE PRN (08:15)
[2017-03-24] MEDS ORDERED: POTASSIUM CHLOR 40 MEQ PREMIX 100 ML IV PRN ×2 (08:15)
[2017-03-24] MEDS ORDERED: POTASSIUM CHLORIDE 25 MEQ EFFERVESCENT TAB PO PRN (08:15)
[2017-03-24] MEDS ORDERED: POTASSIUM PHOSPHATE MONOBASIC 500 MG TAB PO PRN (08:15)
[2017-03-24] MEDS ORDERED: POTASSIUM PHOSPHATE INJ 30 MMOL in SODIUM CHLOR 0.9% 250 ML INJ 250 ML IV PRN (08:15)
[2017-03-24] MEDS ORDERED: SODIUM PHOSPHATE INJ 30 MMOL in SODIUM CHLOR 0.9% 250 ML INJ 240 ML IV PRN (08:15)
[2017-03-24] MEDS ORDERED: MAGNESIUM SULFATE INJ 2 GM in SODIUM CHLORIDE 0.9% INJ 96 ML IV PRN (08:15)
[2017-03-24] MEDS ORDERED: MAGNESIUM SULFATE INJ 4 GM in SODIUM CHLORIDE 0.9% INJ 92 ML IV PRN (08:15)
[2017-03-24] MEDS ORDERED: POTASSIUM CHLOR 20 MEQ PREMIX 100 ML IV PRN ×2 (08:15)
[2017-03-24] MEDS ORDERED: MAGNESIUM OXIDE 400 MG TAB PO PRN (08:15)
--- NOTE | 2017-03-24 09:00 | HHI.PR ---
Subjective Remarks This is a 31yM with history of severe traumatic brain injury and severe neurologic deficit in persistent vegetative state who was recently admitted and discharged from our facility after a 3 week hospital stay for pseudomonas pneumonia. He was discharged yesterday to his SNF and re-presents today with fever and tachycardia. per his mother, he gets tachycardic any time he gets agitated. He was running low-grade temperatures up to 100.3F at our facility, but today is > 102 F. He has no change in sputum production, oxygen requirement , or any other symptoms. His wbc is elevated, but near baseline for him over the last few weeks. Procalcitonin level is 0.24 suggestive against an acute bacterial infection. Patient is persistently chronically encephalopathic and can answer no additional information. Mother is concerned that he "just doesn't look right" but cannot identify any additional changes since he left yesterday. 03/22: no changes. HR came down appropriately. non-toxic appearing. fevers are lower, but persistent, now about where they were when he left the hospital last week. Talking with his mother, she is still concerned about the fevers and feels like he is not completely back to baseline. will consider keeping inpatient another day, although on my physical exam, he is stable and at baseline from prior exams. 03-23 PATIENT TRANSFERRED TO OUR SERVICE TODAY REMAINS NON VERBAL SOME FEVERS HAS BEEN SEEN BY BERT RANDHAWA RN CHART REVIEWED 03-24 NO COMPLAINTS REMAINS ON TRACH BORDERLINE FEVERS SYDNEE RN Objective Vitals Vital Signs Date Time Temp Pulse Resp B/P (MAP) Pulse Ox O2 Delivery O2 Flow Rate FiO2 03/24/17 07:53 100 T-piece 28 03/24/17 06:00 61 03/24/17 04:00 99.7 64 22 111/55 (73) 99 03/24/17 04:00 86 03/24/17 02:00 94 03/24/17 00:00 99.3 108 8 116/64 (81) 97 03/24/17 00:00 106 03/23/17 22:00 107 03/23/17 21:10 100 T-piece 4.00 28 03/23/17 20:00 99.0 66 19 110/58 (75) 94 03/23/17 20:00 80 03/23/17 18:00 53 03/23/17 16:00 99.6 90 23 94/50 (65) 100 03/23/17 16:00 90 03/23/17 14:00 60 03/23/17 12:00 98.5 76 16 118/61 (80) 96 03/23/17 12:00 93 03/23/17 10:32 100 T-piece 28 03/23/17 10:16 98 T-piece 28 03/23/17 10:00 93 I/O 03/23/17 03/23/17 03/23/17 03/24/17 03/24/17 03/24/17 07:00 15:00 23:00 07:00 15:00 23:00 Intake Total 240 ml 450 ml 505 ml 540 ml Output Total 700 ml 1150 ml 1650 ml Balance -460 ml 450 ml -645 ml -1110 ml Intake IV Total 450 ml 345 ml Tube Feeding 40 ml 490 ml Tube Irrigant 240 ml 120 ml Other 50 ml Output Urine Total 700 ml 1150 ml 1650 ml Stool Total 0 ml # Bowel Movements 0 0 Result Diagram: 03/24/17 0451 03/24/17 0451 Other Results Laboratory Tests Test 03/21/17 20:15 03/22/17 13:36 03/22/17 23:15 03/23/17 05:06 Nasal Screen MRSA (PCR) MRSA DETECTED White Blood Count 8.9 TH/MM3 Red Blood Count 3.71 MIL/MM3 Hemoglobin 11.6 GM/DL Hematocrit 34.6 % Mean Corpuscular Volume 93.3 FL Mean Corpuscular Hemoglobin 31.2 PG Mean Corpuscular Hemoglobin Concent 33.4 % Red Cell Distribution Width 12.5 % Platelet Count 213 TH/MM3 Mean Platelet Volume 10.4 FL Blood Urea Nitrogen 15 MG/DL 10 MG/DL Creatinine 0.70 MG/DL 0.60 MG/DL Random Glucose 67 MG/DL 65 MG/DL Calcium Level 8.4 MG/DL 9.0 MG/DL Sodium Level 140 MEQ/L 138 MEQ/L Potassium Level 3.5 MEQ/L 3.6 MEQ/L Chloride Level 108 MEQ/L 107 MEQ/L Carbon Dioxide Level 20.4 MEQ/L 19.9 MEQ/L Anion Gap 12 MEQ/L 11 MEQ/L Estimat Glomerular Filtration Rate 160 ML/MIN 192 ML/MIN Vancomycin Level Trough 11.3 MCG/ML Test 03/23/17 07:35 03/24/17 04:51 White Blood Count 4.2 TH/MM3 5.0 TH/MM3 Red Blood Count 3.65 MIL/MM3 3.64 MIL/MM3 Hemoglobin 11.3 GM/DL 11.3 GM/DL Hematocrit 34.1 % 33.5 % Mean Corpuscular Volume 93.5 FL 92.0 FL Mean Corpuscular Hemoglobin 31.1 PG 31.0 PG Mean Corpuscular Hemoglobin Concent 33.2 % 33.7 % Red Cell Distribution Width 12.8 % 12.7 % Platelet Count 158 TH/MM3 189 TH/MM3 Mean Platelet Volume 10.7 FL 10.7 FL Neutrophils (%) (Auto) 59.4 % Lymphocytes (%) (Auto) 22.5 % Monocytes (%) (Auto) 14.5 % Eosinophils (%) (Auto) 3.2 % Basophils (%) (Auto) 0.4 % Neutrophils # (Auto) 3.0 TH/MM3 Lymphocytes # (Auto) 1.1 TH/MM3 Monocytes # (Auto) 0.7 TH/MM3 Eosinophils # (Auto) 0.2 TH/MM3 Basophils # (Auto) 0.0 TH/MM3 CBC Comment DIFF FINAL Differential Comment Blood Urea Nitrogen 6 MG/DL Creatinine 0.63 MG/DL Random Glucose 102 MG/DL Total Protein 6.9 GM/DL Albumin 3.0 GM/DL Calcium Level 8.3 MG/DL Phosphorus Level 3.0 MG/DL Magnesium Level 1.8 MG/DL Alkaline Phosphatase 81 U/L Aspartate Amino Transf (AST/SGOT) 24 U/L Alanine Aminotransferase (ALT/SGPT) 41 U/L Total Bilirubin 0.4 MG/DL Sodium Level 141 MEQ/L Potassium Level 3.3 MEQ/L Chloride Level 107 MEQ/L Carbon Dioxide Level 24.9 MEQ/L Anion Gap 9 MEQ/L Estimat Glomerular Filtration Rate 181 ML/MIN Free Thyroxine 1.27 NG/DL Thyroid Stimulating Hormone 3rd Gen 2.090 uIU/ML Imaging Last Impressions Chest X-Ray 03/21/17 0755 Signed Impressions: Service Date/Time: Tuesday, March 21, 2017 08:25 - CONCLUSION: 1. Mild increased perihilar interstitial markings consistent with mild pulmonary vascular congestion versus pneumonia. Clinical correlation is recommended. 2. Cardiomegaly. Peter Nolan MD Objective Remarks GENERAL: NOT AWAKE OR ALERT-- FOLLOWS NO COMMANDS SKIN: Warm and dry. SWEATING HEAD: Atraumatic. Normocephalic. EYES: Pupils equal and round. No scleral icterus. No injection or drainage. ENT: No nasal bleeding or discharge. Mucous membranes pink and moist. NECK: Trachea midline. No JVD. TRACHEOSTOMY IN PLACE CARDIOVASCULAR: Regular rate and rhythm. S1, S2 NO S3 OR S4 NO HEAVE OR THRILL RESPIRATORY: No accessory muscle use. Clear to auscultation. Breath sounds equal bilaterally. GASTROINTESTINAL: Abdomen soft, non-tender, nondistended. Hepatic and splenic margins not palpable. PEG MUSCULOSKELETAL: Extremities without clubbing, cyanosis, or edema. No obvious deformities. NEUROLOGICAL: Awake and NOT alert. No obvious cranial nerve deficits. PERSISTENT VEGETATIVE STATE- NOT ABLE TO ASSESS PSYCHIATRIC: INAppropriate mood and affect; insight and judgment ABnormal. PERSISTENT VEGETATIVE STATE Medications and IVs Current Medications Acetaminophen (Tylenol Supp) 650 mg ONCE ONCE RECTAL Last administered on 03/21 09:21; Start 03/21/17 at 08:00; Stop 03/21/17 at 08:01; Status DC Sodium Chloride 1,000 ml @ 1,000 mls/hr Q1H ONCE IV Last administered on 09:20; Start 03/21/17 at 07:55; Stop 03/21/17 at 08:54; Status DC Sodium Chloride 1,000 ml @ 1,000 mls/hr Q1H ONCE IV Last administered on 09:21; Start 03/21/17 at 07:55; Stop 03/21/17 at 08:54; Status DC Sodium Chloride 100 ml @ 1,000 mls/hr Q6M ONCE IV Last administered on 09:21; Start 03/21/17 at 07:55; Stop 03/21/17 at 08:00; Status DC Cefepime HCl 2000 mg/Sodium Chloride 100 ml @ 200 mls/hr ONCE ONCE IV Last administered on 03/21/17 09:52; Start 03/21/17 at 08:00; Stop 03/21/17 at 08:29 ; Status DC Azithromycin 500 mg/Sodium Chloride 250 ml @ 250 mls/hr ONCE ONCE IV Last administered on 03/21/17 09:21; Start 03/21/17 at 08:00; Stop 03/21/17 at 08:59 ; Status DC Lorazepam (Ativan Inj) 1 mg ONCE ONCE IV PUSH Last administered on 03/21/17 11:54; Start 03/21/17 at 10:15; Stop 03/21/17 at 10:16; Status DC Albuterol/ Ipratropium (Duoneb Neb) 1 ampule ONCE ONCE NEB Last administered on 03/21/17 11:49; Start 03/21/17 at 11:45; Stop 03/21/17 at 11:46; Status DC Ketorolac Tromethamine (Toradol Inj) 30 mg ONCE ONCE IV PUSH Last administered on 03/21/17 11:55; Start 03/21/17 at 11:45; Stop 03/21/17 at 11:46 ; Status DC Lorazepam (Ativan Inj) 1 mg ONCE ONCE IV PUSH Last administered on 03/21/17 13:37; Start 03/21/17 at 12:15; Stop 03/21/17 at 12:16; Status DC Propranolol HCl (Inderal) 10 mg Q8HR PO Last administered on 03/21/17 21:25; Start 03/21/17 at 14:00; Stop 03/21/17 at 22:00; Status DC Magnesium Oxide (Mag-Ox) 800 mg UNSCH PRN PO For Magnesium 1.2 - 1.6 mg/dL; Start 03/21/17 at 12:45 Magnesium Sulfate 4 gm/Sodium Chloride 100 ml @ 50 mls/hr UNSCH PRN IV For Magnesium 0.9 - 1.1 mg/dL; Start 03/21/17 at 12:45 Magnesium Sulfate 2 gm/Sodium Chloride 100 ml @ 50 mls/hr UNSCH PRN IV For Magnesium 1.2 - 1.6 mg/dL; Start 03/21/17 at 12:45 Potassium Chloride 100 ml @ 50 mls/hr Q2H PRN IV For Potassium 2.8 - 3.2 mEq/L ; Start 03/21/17 at 12:45 Potassium Chloride 100 ml @ 50 mls/hr Q2H PRN IV For Potassium 3.3 - 3.5 mEq/L ; Start 03/21/17 at 12:45 Potassium Chloride 100 ml @ 50 mls/hr Q2H PRN IV For Potassium 2.8 - 3.2 mEq/L ; Start 03/21/17 at 12:45 Potassium Chloride 100 ml @ 25 mls/hr UNSCH PRN IV For Potassium 3.3 - 3.5 mEq /L; Start 03/21/17 at 12:45 Potassium Phosphate (K-Phos) 2,000 mg Q4H PRN PO For Phosphorus < 2.5 mg/dL; Start 03/21/17 at 12:45 Potassium Phosphate (K-Phos) 2,000 mg UNSCH PRN PO/TUBE SEE LABEL COMMENTS; Start 03/21/17 at 12:45 Potassium Phosphate 30 mmol/ Sodium Chloride 260 ml @ 42 mls/hr UNSCH PRN IV SEE LABEL COMMENTS; Start 03/21/17 at 12:45 Sodium Phosphate 30 mmol/Sodium Chloride 250 ml @ 42 mls/hr UNSCH PRN IV For Phosphorus < 2.5 mg/dL; Start 03/21/17 at 12:45 Albuterol/ Ipratropium (Duoneb Neb) 1 ampule Q6HR NEB INH Last administered on 03/23/17 04:02; Start 03/21/17 at 16:00; Stop 03/23/17 at 09:09; Status DC Albuterol/ Ipratropium (Duoneb Neb) 1 ampule Q2HR NEB PRN INH WHEEZING; Start 03/21/17 at 12:45 Acetaminophen (Tylenol) 650 mg Q6H PRN PO PAIN 1-10 AND/OR FEVER >101F Last administered on 03/21/17 21:24; Start 03/21/17 at 12:45 Lorazepam (Ativan Inj) 1 mg Q1H PRN IV PUSH Agitation/Sedation Last administered on 03/22/17 15:37; Start 03/21/17 at 12:45 Miscellaneous Information 1 [id number] XX Last administered on 03/21/17 12:45; Start 03/21/17 at 12:45 Chlorhexidine Gluconate (Chlorhexidine 2% Cloth) 3 pack Taper DAILY@04 TOP Last administered on 03/24/17 04:00; Start 03/22/17 at 04:00; Stop 03/18/18 at 03:59 Chlorhexidine Gluconate (Chlorhexidine 2% Cloth) 3 pack UNSCH PRN TOP HYGIENIC CARE; Start 03/21/17 at 12:45 Senna/Docusate Sodium (Sanam-Colace) 1 tab BID PO Last administered on 20:44; Start 03/21/17 at 21:00 Cefepime HCl 2000 mg/Sodium Chloride 100 ml @ 200 mls/hr Q8H IV Last administered on 03/24/17 02:42; Start 03/21/17 at 20:00 Vancomycin HCl 1250 mg/Sodium Chloride 262.5 ml @ 250 mls/hr ONCE ONCE IV ; Start 03/21/17 at 12:45; Stop 03/21/17 at 13:47; Status UNV Pharmacy Profile Note 0 ml @ 0 mls/hr UNSCH OTHER ; Start 03/21/17 at 12:45 Metronidazole 100 ml @ 100 mls/hr Q6H IV Last administered on 03/24/17 02:42 ; Start 03/21/17 at 15:00 Amlodipine Besylate (Norvasc) 10 mg DAILY PEG Last administered on 03/23/17 09 :00; Start 03/22/17 at 09:00 Apixaban (Eliquis) 5 mg BID G-TUBE Last administered on 03/23/17 20:45; Start 03/21/17 at 21:00 Baclofen (Lioresal) 20 mg TID G-TUBE Last administered on 03/23/17 17:16; Start 03/21/17 at 13:00 Clonidine (Catapres) 0.1 mg Q6H PRN PO SBP>160, DBP>90; Start 03/21/17 at 12:45 Famotidine (Pepcid) 40 mg DAILY G-TUBE Last administered on 03/23/17 09:00; Start 03/22/17 at 09:00 Hydralazine HCl (Apresoline) 50 mg Q8HR PO Last administered on 03/24/17 05:18 ; Start 03/21/17 at 14:00 Levetriacetam (Keppra) 1,000 mg BID G-TUBE Last administered on 03/23/17 20:50 ; Start 03/21/17 at 21:00 Non-Formulary Medication 5 mg DAILY G-TUBE ; Start 03/22/17 at 09:00; Status UNV Vancomycin HCl 1000 mg/Sodium Chloride 250 ml @ 250 mls/hr Q8H IV Last administered on 03/21/17 21:24; Start 03/21/17 at 14:00; Stop 03/21/17 at 23:59 ; Status DC Loratadine (Claritin) 5 mg DAILY G-TUBE Last administered on 03/23/17 09:00; Start 03/22/17 at 09:00 Vancomycin HCl 1000 mg/Sodium Chloride 250 ml @ 250 mls/hr Q8H IV Last administered on 03/23/17 06:35; Start 03/22/17 at 06:00; Stop 03/23/17 at 09:28 ; Status DC Propranolol HCl (Inderal) 20 mg Q6HR PO Last administered on 03/24/17 05:18; Start 03/22/17 at 00:00 Lorazepam (Ativan) 1 mg Q8HR PO Last administered on 03/24/17 05:18; Start at 19:45 Miscellaneous Information SPECIFIC LAB TO BE DRAWN:VANCOMY... ONCE ONCE .XX ; Start 03/22/17 at 13:45; Stop 03/22/17 at 13:51; Status DC Miscellaneous Information SPECIFIC LAB TO BE DRAWN:VANCOMY... ONCE ONCE .XX Last administered on 03/22/17 21:45; Start 03/22/17 at 21:45; Stop 03/22/17 at 21:46; Status DC Guaifenesin (Robitussin Liq) 100 mg Q4H PRN PO COUGH Last administered on 17:16; Start 03/23/17 at 10:00 Albuterol/ Ipratropium (Duoneb Neb) 1 ampule Q4HR NEB INH Last administered on 03/24/17 07:53; Start 03/23/17 at 12:00 Metoprolol Tartrate (Lopressor) 25 mg BID PRN PO HR>110; Start 03/23/17 at 10: 00 Vancomycin HCl 1250 mg/Sodium Chloride 262.5 ml @ 250 mls/hr Q8H IV Last administered on 03/24/17 05:18; Start 03/23/17 at 14:00 Miscellaneous Information SPECIFIC LAB TO BE DRAWN:VANCOMY... ONCE ONCE .XX ; Start 03/24/17 at 13:45; Stop 03/24/17 at 13:46 Potassium Chloride 100 ml @ 50 mls/hr Q2H PRN IV For Potassium 2.8 - 3.2 mEq/L ; Start 03/24/17 at 08:15 Potassium Chloride 100 ml @ 50 mls/hr Q2H PRN IV For Potassium 2.8 - 3.2 mEq/L ; Start 03/24/17 at 08:15 Potassium Bicarb/ Potassium Chloride (K-Lyte Cl Eff) 50 meq UNSCH PRN PO For Potassium 3.3 - 3.5 mEq/L; Start 03/24/17 at 08:15 Potassium Chloride 100 ml @ 25 mls/hr UNSCH PRN IV For Potassium 3.3 - 3.5 mEq /L; Start 03/24/17 at 08:15 Potassium Chloride 100 ml @ 50 mls/hr Q2H PRN IV For Potassium 3.3 - 3.5 mEq/L ; Start 03/24/17 at 08:15 Magnesium Sulfate 4 gm/Sodium Chloride 100 ml @ 50 mls/hr UNSCH PRN IV For Magnesium 0.9 - 1.1 mg/dL; Start 03/24/17 at 08:15 Magnesium Oxide (Mag-Ox) 800 mg UNSCH PRN PO For Magnesium 1.2 - 1.6 mg/dL; Start 03/24/17 at 08:15 Magnesium Sulfate 2 gm/Sodium Chloride 100 ml @ 50 mls/hr UNSCH PRN IV For Magnesium 1.2 - 1.6 mg/dL; Start 03/24/17 at 08:15 Potassium Phosphate (K-Phos) 2,000 mg Q4H PRN PO For Phosphorus < 2.5 mg/dL; Start 03/24/17 at 08:15 Sodium Phosphate 30 mmol/Sodium Chloride 250 ml @ 42 mls/hr UNSCH PRN IV For Phosphorus < 2.5 mg/dL; Start 03/24/17 at 08:15 Potassium Phosphate (K-Phos) 2,000 mg UNSCH PRN PO/TUBE SEE LABEL COMMENTS; Start 03/24/17 at 08:15 Potassium Phosphate 30 mmol/ Sodium Chloride 260 ml @ 42 mls/hr UNSCH PRN IV SEE LABEL COMMENTS; Start 03/24/17 at 08:15 Urinary Catheter: Yes Vascular Central Line Catheter: No A/P Assessment and Plan Assessment: 31yM with history of severe traumatic brain injury with encephalopathy who presents with fever and tachycardia. Continue broad spectrum abx until cultures are negative x 48h. will keep inpatient an additional day at mother's request given her concern over fever curve. Sinus tachycardia - likely secondary to agitation - schedule ativan 1mg po TID - propranolol 20mg po q6h - prn ativan iv for breakthrough agitation/tachycardia. Fevers - likely central at this point - procalcitonin 0.24 - broaden to vanc/cefepime/flagyl - send durbin cultures - ID consult - unlikely to be acute infectious etiology BORDERLINE FEVERS AXILLARY HYPERTENSION- HOME MEDS DYSPHAGIA -SP PEG CHRONIC PERSISTENT VEGETATIVE STATE AFTER TBI RESTART TUBE FEEDS HX MDRO continue home meds. Discharge Planning NEEDS ID CLEARANCE Hudson Luz DO Mar 24, 2017 09:00
[2017-03-24] MEDS: DOCUSATE SODIUM 50 MG/SENNA 8.6 MG TAB PO SCH ×2 (09:55→20:03)
[2017-03-24] MEDS: APIXABAN 5 MG TABLET G-TUBE SCH ×2 (09:55→20:03)
[2017-03-24] MEDS: levETIRAcetam 500 MG TAB G-TUBE SCH ×2 (09:56→20:03)
[2017-03-24] MEDS: BACLOFEN 20 MG TAB G-TUBE SCH ×3 (09:56→16:58)
[2017-03-24] MEDS: LORATADINE 10 MG TAB G-TUBE SCH (09:56)
[2017-03-24] MEDS: FAMOTIDINE 20 MG TAB G-TUBE SCH (09:56)
--- NOTE | 2017-03-24 10:08 | HHI.IDPN ---
Subjective Subjective Remarks Notes reviewed Temps better He is on T-piece C/S pending BP ok, not on pressors Antibiotics vanco cefepime flagyl Past Medical History Reviewed Allergies: Coded Allergies: haloperidol (Unverified Adverse Reaction, Severe, Seizures, 02/21/17) Objective . Vital Signs Date Time Temp Pulse Resp B/P (MAP) Pulse Ox O2 Delivery O2 Flow Rate FiO2 03/24/17 07:53 100 T-piece 28 03/24/17 06:00 61 03/24/17 04:00 99.7 64 22 111/55 (73) 99 03/24/17 04:00 86 03/24/17 02:00 94 03/24/17 00:00 99.3 108 8 116/64 (81) 97 03/24/17 00:00 106 03/23/17 22:00 107 03/23/17 21:10 100 T-piece 4.00 28 03/23/17 20:00 99.0 66 19 110/58 (75) 94 03/23/17 20:00 80 03/23/17 18:00 53 03/23/17 16:00 99.6 90 23 94/50 (65) 100 03/23/17 16:00 90 03/23/17 14:00 60 03/23/17 12:00 98.5 76 16 118/61 (80) 96 03/23/17 12:00 93 03/23/17 10:32 100 T-piece 28 03/23/17 10:16 98 T-piece 28 . Laboratory Tests Test 03/22/17 13:36 03/23/17 07:35 03/24/17 04:51 White Blood Count 8.9 TH/MM3 4.2 TH/MM3 5.0 TH/MM3 Red Blood Count 3.71 MIL/MM3 3.65 MIL/MM3 3.64 MIL/MM3 Hemoglobin 11.6 GM/DL 11.3 GM/DL 11.3 GM/DL Hematocrit 34.6 % 34.1 % 33.5 % Mean Corpuscular Volume 93.3 FL 93.5 FL 92.0 FL Mean Corpuscular Hemoglobin 31.2 PG 31.1 PG 31.0 PG Mean Corpuscular Hemoglobin Concent 33.4 % 33.2 % 33.7 % Red Cell Distribution Width 12.5 % 12.8 % 12.7 % Platelet Count 213 TH/MM3 158 TH/MM3 189 TH/MM3 Mean Platelet Volume 10.4 FL 10.7 FL 10.7 FL Neutrophils (%) (Auto) 59.4 % Lymphocytes (%) (Auto) 22.5 % Monocytes (%) (Auto) 14.5 % Eosinophils (%) (Auto) 3.2 % Basophils (%) (Auto) 0.4 % Neutrophils # (Auto) 3.0 TH/MM3 Lymphocytes # (Auto) 1.1 TH/MM3 Monocytes # (Auto) 0.7 TH/MM3 Eosinophils # (Auto) 0.2 TH/MM3 Basophils # (Auto) 0.0 TH/MM3 CBC Comment DIFF FINAL Differential Comment Laboratory Tests Test 03/22/17 13:36 03/23/17 05:06 03/24/17 04:51 Blood Urea Nitrogen 15 MG/DL 10 MG/DL 6 MG/DL Creatinine 0.70 MG/DL 0.60 MG/DL 0.63 MG/DL Random Glucose 67 MG/DL 65 MG/DL 102 MG/DL Calcium Level 8.4 MG/DL 9.0 MG/DL 8.3 MG/DL Sodium Level 140 MEQ/L 138 MEQ/L 141 MEQ/L Potassium Level 3.5 MEQ/L 3.6 MEQ/L 3.3 MEQ/L Chloride Level 108 MEQ/L 107 MEQ/L 107 MEQ/L Carbon Dioxide Level 20.4 MEQ/L 19.9 MEQ/L 24.9 MEQ/L Anion Gap 12 MEQ/L 11 MEQ/L 9 MEQ/L Estimat Glomerular Filtration Rate 160 ML/MIN 192 ML/MIN 181 ML/MIN Total Protein 6.9 GM/DL Albumin 3.0 GM/DL Phosphorus Level 3.0 MG/DL Magnesium Level 1.8 MG/DL Alkaline Phosphatase 81 U/L Aspartate Amino Transf (AST/SGOT) 24 U/L Alanine Aminotransferase (ALT/SGPT) 41 U/L Total Bilirubin 0.4 MG/DL Free Thyroxine 1.27 NG/DL Thyroid Stimulating Hormone 3rd Gen 2.090 uIU/ML Microbiology Date/Time Source Procedure Growth Status 03/23/17 16:00 Sputum Endotracheal Gram Stain - Final Resulted 03/23/17 16:00 Sputum Endotracheal Sputum Culture Pending Resulted Imaging Last Impressions Chest X-Ray 03/21/17 5179 Signed Impressions: Service Date/Time: Tuesday, March 21, 2017 08:25 - CONCLUSION: 1. Mild increased perihilar interstitial markings consistent with mild pulmonary vascular congestion versus pneumonia. Clinical correlation is recommended. 2. Cardiomegaly. Peter Nolan MD Physical Exam GENERAL: Awake, no interaction, not in respiratory distress. On T piece SKIN: Warm and dry. No generalized rash, no ecchymoses and no evidence of embolic lesions. HEAD: Atraumatic. Normocephalic. EYES: [place] conjunctiva. No petechia or hemorrhage. Pupils equal, round and reactive to light. No scleral icterus. No injection or drainage. EARS, NOSE AND THROAT: Nose without bleeding or purulent nasal discharge. Mucous membranes moist. NECK: Tracheostomy in plce with thick juarez secretions CARDIOVASCULAR: Regular rate and rhythm. Tachycardic No murmurs, rubs or gallops heard RESPIRATORY: Clear to auscultation. Breath sounds equal bilaterally. No rales , wheezing or rhonchi. Decreased breath sounds at the bases ABDOMEN: Soft, nondistended, no reaction to palpation.. Bowel sounds present and normoactive. PEG site looks okay. EXTREMITIES: No clubbing, cyanosis, or edema. Both feet are dorsiflexed. Well perfused and warm. NEUROLOGICAL: No interaction. Extremities are spastic. PSYCHIATRIC: Unable to assess LINE: No evidence of infection : Ospina catheter in place, urine looks clear Assessment & Plan Remarks IMPRESSION Sepsis, recurrent, very suspicious for pulmonary, ?plugging - CXR with some new perihilar infiltrates - both fever and lekocytosis present on admission are now resolved Recent Rx for PSAE PNA Hx MDRO infections with MRSA and ESBL+ Chronic vegetative state from anoxic injury Chronic respiratory failure, S/P trach Recent Rx for Strep viridans bacteremia from midline Hx DVT both UE RECOMMENDATION Continue current Abx : Vanco, Cefepime and Flagyl Follow new C/S Follow temps Monitor progress CXR D/W Michelle Anderson MD Mar 24, 2017 10:08
[2017-03-24] MEDS: POTASSIUM CHLOR 20 MEQ PREMIX 100 ML IV PRN (12:54)
[2017-03-24] MEDS ORDERED: PHARMACY ORDERED LAB ONE (13:45)
--- NOTE | 2017-03-24 14:43 | PQ ---
Physician Query Response Document PATIENT: NEEMA MANSFIELD : 1985 ADMIT DATE: 03/21/2017 12:45 PM DISCH DATE: RESPONDING PROVIDER #: JOHANNY QUERY TEXT: Clarification of Clinical Diagnostic Findings Senior Health Physics Technician documented the following information with no mention of this diagnosis in your documentati on. Please indicate in your next progress note and/or discharge summary your agreement with consulta nt or provide clarification that this diagnosis is not a current condition. Diagnosis: SEPSISDocumented by: ID RANGE CONSERVATIONIST Location: CONSULTATION NOTE AND ID PROGRESS NOTE S 1) SEPSIS PRESENT 2) SEPSIS RULED OUT 3) OTHER ,PLEASE EXPLAIN PLEASE CALL [facility] @EXT [phone] FOR ASSISTANCE The patient's Clinical Indicators include: PER INFECTIOUS DISEASE CONSULTATION: IMPRESSION Sepsis, recurrent, very suspicious for pulmonary, ?plugging - CXR with some new perihilar infiltrates Agree with current Abx : Vanco, Cefepime and Flagyl Follow new C/S Query created by: Elenita Campbell on 03/24/2017 2:14 PM RESPONSE TEXT: Senior Health Physics Technician documented the following information with no mention of this diagnosis in your documentati on. Please indicate in your next progress note and/or discharge summary your agreement with consultan t or provide clarification that this diagnosis is not a current condition. Diagnosis: SEPSIS Documented by: ID RANGE CONSERVATIONIST Location: CONSULTATION NOTE AND ID PROGRESS NOTES 1) SEPSIS PRESENT 2) SEPSIS RULED OUT 3) OTHER ,PLEASE EXPLAIN PLEASE CALL [facility] @EXT [phone] FOR ASSISTANCE The patient's Clinical Indicators include: PER INFECTIOUS DISEASE CONSULTATION: IMPRESSION Sepsis, recurrent, very suspicious for pulmonary, ?plugging - CXR with some new perihilar infiltrates Agree with current Abx : Vanco, Cefepime and Flagyl Follow new C/S SUSPECTED SEPSIS DUE TO FEVERS AND TACHYCARDIA Electronically signed by: Hudson Luz 03/24/2017 2:39 PM
[2017-03-24 16:41] LABS: HEMOGLOBIN A1a 1.6 %; HEMOGLOBIN A1b 1.7 %; HEMOGLOBIN Ao 85.4 %; HEMOGLOBIN LA1C 1.9 %; HEMOGLOBIN P3 3.4 %
[2017-03-25] VITALS (15 sets, daily range): BP systolic 94–142; BP diastolic 51–79; PULSE 53–113; RESP 4–23; TEMP 98.3–99.3; O2SAT 96–100
[2017-03-25] MEDS: RESP: ALBUTEROL 2.5 MG/IPRATROPIUM 0.5 MG NEB (SCH) INH ×6 (03:38→23:24)
[2017-03-25] MEDS: CEFEPIME INJ 2,000 MG in SODIUM CHLORIDE 0.9% INJ 100 ML IV SCH ×3 (04:11→21:05)
[2017-03-25] MEDS: metroNIDAZOLE 500 MG INJ 100 ML IV SCH ×4 (04:14→21:05)
[2017-03-25] MEDS: LORazepam 1 MG TAB PO SCH ×3 (04:15→21:05)
--- NOTE | 2017-03-25 05:20 | RADRPT ---
EXAM DATE/TIME: 03/25/2017 04:26 [facility] COMPARISON: CHEST SINGLE AP, March 21, 2017, 11:50. INDICATIONS : Short of breath. MEDICAL HISTORY : Hypertension. Seizures SURGICAL HISTORY : Tracheostomy. Gastrostomy. GJ tube placement ENCOUNTER: Subsequent ACUITY: 1 month PAIN SCORE: 0/10 LOCATION: Bilateral chest FINDINGS: A single view of the chest demonstrates the lungs to be symmetrically aerated without evidence of mas s, infiltrate or effusion. Mild cardiomegaly without pulmonary vascular engorgement. Osseous structur es are intact. A tracheostomy tube and gastrostomy tube are noted. CONCLUSION: 1. Mild cardiomegaly. 2. Clear lungs. Zachariah Echeverria Jr., MD on March 25, 2017 at 5:17 Board Certified Radiologist. This report was verified electronically.
[2017-03-25 05:43] LABS: AUTOMATED NEUTROPHIL # 1.9 TH/MM3 (1.8-7.7); BASOPHIL % 0.4 % (0.0-2.0); EOSINOPHIL # 0.1 TH/MM3 (0-0.4); EOSINOPHIL % 3.5 % (0.0-4.0); HEMATOCRIT 31.5 % (39.0-51.0); HEMO FLAGS DIFF FINAL; LYMPHOCYTE # 1.3 TH/MM3 (1.0-4.8); MEAN CELL VOLUME 93.1 FL (80.0-100.0); MEAN CORPUSCULAR HEMOGLOBIN 30.9 PG (27.0-34.0); MEAN CORPUSCULAR HGB CONC 33.2 % (32.0-36.0); MONO % 17.1 % (0.0-8.0); PLATELET COUNT 176 TH/MM3 (150-450); RED BLOOD COUNT 3.38 MIL/MM3 (4.50-5.90); RED CELL DISTRIBUTION WIDTH 12.7 % (11.6-17.2); WHITE BLOOD COUNT 4.1 TH/MM3 (4.0-11.0)
[2017-03-25] MEDS: hydrALAZINE HCL 50 MG TAB PO SCH ×3 (05:50→21:05)
[2017-03-25] MEDS: PROPRANOLOL HCL 20 MG TAB PO SCH ×4 (05:50→18:35)
[2017-03-25] MEDS: VANCOMYCIN INJ 1,250 MG in SODIUM CHLOR 0.9% 250 ML INJ 250 ML IV SCH ×3 (05:51→21:05)
[2017-03-25 06:03] LABS: ALT (GPT) 38 U/L (12-78); ANION GAP 7 MEQ/L (5-15); AST (GOT) 20 U/L (15-37); BICARBONATE 27.5 MEQ/L (21.0-32.0); BLOOD UREA NITROGEN 5 MG/DL (7-18); CHLORIDE 108 MEQ/L (98-107); GLOMERULAR FILTRATION RATE 181 ML/MIN (>89); MAGNESIUM 1.8 MG/DL (1.5-2.5); POTASSIUM 3.6 MEQ/L (3.5-5.1); SODIUM (NA) 142 MEQ/L (136-145)
[2017-03-25 06:06] LABS: ALKALINE PHOSPHATASE 74 U/L (45-117); TOTAL BILIRUBIN ADULT 0.2 MG/DL (0.2-1.0)
--- NOTE | 2017-03-25 08:31 | HHI.PR ---
Subjective Remarks This is a 31yM with history of severe traumatic brain injury and severe neurologic deficit in persistent vegetative state who was recently admitted and discharged from our facility after a 3 week hospital stay for pseudomonas pneumonia. He was discharged yesterday to his SNF and re-presents today with fever and tachycardia. per his mother, he gets tachycardic any time he gets agitated. He was running low-grade temperatures up to 100.3F at our facility, but today is > 102 F. He has no change in sputum production, oxygen requirement , or any other symptoms. His wbc is elevated, but near baseline for him over the last few weeks. Procalcitonin level is 0.24 suggestive against an acute bacterial infection. Patient is persistently chronically encephalopathic and can answer no additional information. Mother is concerned that he "just doesn't look right" but cannot identify any additional changes since he left yesterday. 03/22: no changes. HR came down appropriately. non-toxic appearing. fevers are lower, but persistent, now about where they were when he left the hospital last week. Talking with his mother, she is still concerned about the fevers and feels like he is not completely back to baseline. will consider keeping inpatient another day, although on my physical exam, he is stable and at baseline from prior exams. 03-23 PATIENT TRANSFERRED TO OUR SERVICE TODAY REMAINS NON VERBAL SOME FEVERS HAS BEEN SEEN BY ID SYDNEE RN CHART REVIEWED 03-24 NO COMPLAINTS REMAINS ON TRACH BORDERLINE FEVERS SYDNEE RN 03-25 HAS HAD BORDERLINE BLOOD PRESSURE ISSUES SYDNEE RN REMAINS NONVERBAL HAS REMAINED AFEBRILE Objective Vitals Vital Signs Date Time Temp Pulse Resp B/P (MAP) Pulse Ox O2 Delivery O2 Flow Rate FiO2 03/25/17 07:40 97 T-piece 4.00 28 03/25/17 06:00 62 03/25/17 04:00 92 03/25/17 04:00 98.4 71 22 100/57 (71) 99 03/25/17 02:00 78 03/25/17 00:00 98.3 53 17 94/51 (65) 99 03/25/17 00:00 60 03/24/17 22:00 67 03/24/17 20:00 98.5 59 22 94/52 (66) 100 03/24/17 20:00 78 03/24/17 19:34 98 T-piece 5.00 28 03/24/17 18:00 67 03/24/17 16:00 99.6 62 7 104/57 (73) 100 03/24/17 16:00 62 03/24/17 14:00 53 03/24/17 12:00 71 03/24/17 12:00 99.4 71 7 105/55 (72) 100 03/24/17 10:00 89 I/O 03/24/17 03/24/17 03/24/17 03/25/17 03/25/17 03/25/17 07:00 15:00 23:00 07:00 15:00 23:00 Intake Total 540 ml 680 ml 769 ml Output Total 1650 ml 850 ml 900 ml Balance -1110 ml -170 ml -131 ml Tube Feeding 490 ml 560 ml 509 ml Other 50 ml 120 ml 260 ml Output Urine Total 1650 ml 850 ml 900 ml # Bowel Movements 0 0 2 Result Diagram: 03/25/17 0426 03/25/17 0426 Other Results Laboratory Tests Test 03/22/17 13:36 03/22/17 23:15 03/23/17 05:06 03/23/17 07:35 White Blood Count 8.9 TH/MM3 4.2 TH/MM3 Red Blood Count 3.71 MIL/MM3 3.65 MIL/MM3 Hemoglobin 11.6 GM/DL 11.3 GM/DL Hematocrit 34.6 % 34.1 % Mean Corpuscular Volume 93.3 FL 93.5 FL Mean Corpuscular Hemoglobin 31.2 PG 31.1 PG Mean Corpuscular Hemoglobin Concent 33.4 % 33.2 % Red Cell Distribution Width 12.5 % 12.8 % Platelet Count 213 TH/MM3 158 TH/MM3 Mean Platelet Volume 10.4 FL 10.7 FL Blood Urea Nitrogen 15 MG/DL 10 MG/DL Creatinine 0.70 MG/DL 0.60 MG/DL Random Glucose 67 MG/DL 65 MG/DL Calcium Level 8.4 MG/DL 9.0 MG/DL Sodium Level 140 MEQ/L 138 MEQ/L Potassium Level 3.5 MEQ/L 3.6 MEQ/L Chloride Level 108 MEQ/L 107 MEQ/L Carbon Dioxide Level 20.4 MEQ/L 19.9 MEQ/L Anion Gap 12 MEQ/L 11 MEQ/L Estimat Glomerular Filtration Rate 160 ML/MIN 192 ML/MIN Vancomycin Level Trough 11.3 MCG/ML Test 03/24/17 04:51 03/24/17 10:40 03/24/17 14:27 03/25/17 04:26 White Blood Count 5.0 TH/MM3 4.1 TH/MM3 Red Blood Count 3.64 MIL/MM3 3.38 MIL/MM3 Hemoglobin 11.3 GM/DL 10.5 GM/DL Hematocrit 33.5 % 31.5 % Mean Corpuscular Volume 92.0 FL 93.1 FL Mean Corpuscular Hemoglobin 31.0 PG 30.9 PG Mean Corpuscular Hemoglobin Concent 33.7 % 33.2 % Red Cell Distribution Width 12.7 % 12.7 % Platelet Count 189 TH/MM3 176 TH/MM3 Mean Platelet Volume 10.7 FL 10.7 FL Neutrophils (%) (Auto) 59.4 % 47.0 % Lymphocytes (%) (Auto) 22.5 % 32.0 % Monocytes (%) (Auto) 14.5 % 17.1 % Eosinophils (%) (Auto) 3.2 % 3.5 % Basophils (%) (Auto) 0.4 % 0.4 % Neutrophils # (Auto) 3.0 TH/MM3 1.9 TH/MM3 Lymphocytes # (Auto) 1.1 TH/MM3 1.3 TH/MM3 Monocytes # (Auto) 0.7 TH/MM3 0.7 TH/MM3 Eosinophils # (Auto) 0.2 TH/MM3 0.1 TH/MM3 Basophils # (Auto) 0.0 TH/MM3 0.0 TH/MM3 CBC Comment DIFF FINAL DIFF FINAL Differential Comment Blood Urea Nitrogen 6 MG/DL 5 MG/DL Creatinine 0.63 MG/DL 0.63 MG/DL Random Glucose 102 MG/DL 101 MG/DL Total Protein 6.9 GM/DL 6.6 GM/DL Albumin 3.0 GM/DL 2.9 GM/DL Calcium Level 8.3 MG/DL 8.4 MG/DL Phosphorus Level 3.0 MG/DL 2.9 MG/DL 2.5 MG/DL Magnesium Level 1.8 MG/DL 1.8 MG/DL Alkaline Phosphatase 81 U/L 74 U/L Aspartate Amino Transf (AST/SGOT) 24 U/L 20 U/L Alanine Aminotransferase (ALT/SGPT) 41 U/L 38 U/L Total Bilirubin 0.4 MG/DL 0.2 MG/DL Sodium Level 141 MEQ/L 142 MEQ/L Potassium Level 3.3 MEQ/L 3.6 MEQ/L Chloride Level 107 MEQ/L 108 MEQ/L Carbon Dioxide Level 24.9 MEQ/L 27.5 MEQ/L Anion Gap 9 MEQ/L 7 MEQ/L Estimat Glomerular Filtration Rate 181 ML/MIN 181 ML/MIN Hemoglobin A1c 5.4 % Free Thyroxine 1.27 NG/DL Thyroid Stimulating Hormone 3rd Gen 2.090 uIU/ML Vancomycin Level Trough 16.7 MCG/ML Imaging Last Impressions Chest X-Ray 03/25/17 0000 Signed Impressions: Service Date/Time: Saturday, March 25, 2017 04:26 - CONCLUSION: 1. Mild cardiomegaly. 2. Clear lungs. Zachariah Echeverria Jr., MD Objective Remarks GENERAL: NOT AWAKE OR ALERT-- FOLLOWS NO COMMANDS SKIN: Warm and dry. SWEATING HEAD: Atraumatic. Normocephalic. EYES: Pupils equal and round. No scleral icterus. No injection or drainage. ENT: No nasal bleeding or discharge. Mucous membranes pink and moist. NECK: Trachea midline. No JVD. TRACHEOSTOMY IN PLACE CARDIOVASCULAR: Regular rate and rhythm. S1, S2 NO S3 OR S4 NO HEAVE OR THRILL RESPIRATORY: No accessory muscle use. Clear to auscultation. Breath sounds equal bilaterally. GASTROINTESTINAL: Abdomen soft, non-tender, nondistended. Hepatic and splenic margins not palpable. PEG MUSCULOSKELETAL: Extremities without clubbing, cyanosis, or edema. No obvious deformities. CONTRACTURES UPPER AND LOWER EXTREMITIES NEUROLOGICAL: Awake and NOT alert. No obvious cranial nerve deficits. PERSISTENT VEGETATIVE STATE- NOT ABLE TO ASSESS PSYCHIATRIC: INAppropriate mood and affect; insight and judgment ABnormal. PERSISTENT VEGETATIVE STATE Medications and IVs Current Medications Acetaminophen (Tylenol Supp) 650 mg ONCE ONCE RECTAL Last administered on 03/21 09:21; Start 03/21/17 at 08:00; Stop 03/21/17 at 08:01; Status DC Sodium Chloride 1,000 ml @ 1,000 mls/hr Q1H ONCE IV Last administered on 09:20; Start 03/21/17 at 07:55; Stop 03/21/17 at 08:54; Status DC Sodium Chloride 1,000 ml @ 1,000 mls/hr Q1H ONCE IV Last administered on 09:21; Start 03/21/17 at 07:55; Stop 03/21/17 at 08:54; Status DC Sodium Chloride 100 ml @ 1,000 mls/hr Q6M ONCE IV Last administered on 09:21; Start 03/21/17 at 07:55; Stop 03/21/17 at 08:00; Status DC Cefepime HCl 2000 mg/Sodium Chloride 100 ml @ 200 mls/hr ONCE ONCE IV Last administered on 03/21/17 09:52; Start 03/21/17 at 08:00; Stop 03/21/17 at 08:29 ; Status DC Azithromycin 500 mg/Sodium Chloride 250 ml @ 250 mls/hr ONCE ONCE IV Last administered on 03/21/17 09:21; Start 03/21/17 at 08:00; Stop 03/21/17 at 08:59 ; Status DC Lorazepam (Ativan Inj) 1 mg ONCE ONCE IV PUSH Last administered on 03/21/17 11:54; Start 03/21/17 at 10:15; Stop 03/21/17 at 10:16; Status DC Albuterol/ Ipratropium (Duoneb Neb) 1 ampule ONCE ONCE NEB Last administered on 03/21/17 11:49; Start 03/21/17 at 11:45; Stop 03/21/17 at 11:46; Status DC Ketorolac Tromethamine (Toradol Inj) 30 mg ONCE ONCE IV PUSH Last administered on 03/21/17 11:55; Start 03/21/17 at 11:45; Stop 03/21/17 at 11:46 ; Status DC Lorazepam (Ativan Inj) 1 mg ONCE ONCE IV PUSH Last administered on 03/21/17 13:37; Start 03/21/17 at 12:15; Stop 03/21/17 at 12:16; Status DC Propranolol HCl (Inderal) 10 mg Q8HR PO Last administered on 03/21/17 21:25; Start 03/21/17 at 14:00; Stop 03/21/17 at 22:00; Status DC Magnesium Oxide (Mag-Ox) 800 mg UNSCH PRN PO For Magnesium 1.2 - 1.6 mg/dL; Start 03/21/17 at 12:45 Magnesium Sulfate 4 gm/Sodium Chloride 100 ml @ 50 mls/hr UNSCH PRN IV For Magnesium 0.9 - 1.1 mg/dL; Start 03/21/17 at 12:45 Magnesium Sulfate 2 gm/Sodium Chloride 100 ml @ 50 mls/hr UNSCH PRN IV For Magnesium 1.2 - 1.6 mg/dL; Start 03/21/17 at 12:45 Potassium Chloride 100 ml @ 50 mls/hr Q2H PRN IV For Potassium 2.8 - 3.2 mEq/ L Last administered on 03/24/17 16:03; Start 03/21/17 at 12:45 Potassium Chloride 100 ml @ 50 mls/hr Q2H PRN IV For Potassium 3.3 - 3.5 mEq/ L Last administered on 03/24/17 12:54; Start 03/21/17 at 12:45 Potassium Chloride 100 ml @ 50 mls/hr Q2H PRN IV For Potassium 2.8 - 3.2 mEq/L ; Start 03/21/17 at 12:45 Potassium Chloride 100 ml @ 25 mls/hr UNSCH PRN IV For Potassium 3.3 - 3.5 mEq /L; Start 03/21/17 at 12:45 Potassium Phosphate (K-Phos) 2,000 mg Q4H PRN PO For Phosphorus < 2.5 mg/dL; Start 03/21/17 at 12:45 Potassium Phosphate (K-Phos) 2,000 mg UNSCH PRN PO/TUBE SEE LABEL COMMENTS; Start 03/21/17 at 12:45 Potassium Phosphate 30 mmol/ Sodium Chloride 260 ml @ 42 mls/hr UNSCH PRN IV SEE LABEL COMMENTS; Start 03/21/17 at 12:45 Sodium Phosphate 30 mmol/Sodium Chloride 250 ml @ 42 mls/hr UNSCH PRN IV For Phosphorus < 2.5 mg/dL; Start 03/21/17 at 12:45 Albuterol/ Ipratropium (Duoneb Neb) 1 ampule Q6HR NEB INH Last administered on 03/23/17 04:02; Start 03/21/17 at 16:00; Stop 03/23/17 at 09:09; Status DC Albuterol/ Ipratropium (Duoneb Neb) 1 ampule Q2HR NEB PRN INH WHEEZING; Start 03/21/17 at 12:45 Acetaminophen (Tylenol) 650 mg Q6H PRN PO PAIN 1-10 AND/OR FEVER >101F Last administered on 03/21/17 21:24; Start 03/21/17 at 12:45 Lorazepam (Ativan Inj) 1 mg Q1H PRN IV PUSH Agitation/Sedation Last administered on 03/22/17 15:37; Start 03/21/17 at 12:45 Miscellaneous Information 1 [id number] XX Last administered on 03/21/17 12:45; Start 03/21/17 at 12:45 Chlorhexidine Gluconate (Chlorhexidine 2% Cloth) 3 pack Taper DAILY@04 TOP Last administered on 03/24/17 04:00; Start 03/22/17 at 04:00; Stop 03/18/18 at 03:59 Chlorhexidine Gluconate (Chlorhexidine 2% Cloth) 3 pack UNSCH PRN TOP HYGIENIC CARE; Start 03/21/17 at 12:45 Senna/Docusate Sodium (Sanam-Colace) 1 tab BID PO Last administered on 20:03; Start 03/21/17 at 21:00 Cefepime HCl 2000 mg/Sodium Chloride 100 ml @ 200 mls/hr Q8H IV Last administered on 03/25/17 04:11; Start 03/21/17 at 20:00 Vancomycin HCl 1250 mg/Sodium Chloride 262.5 ml @ 250 mls/hr ONCE ONCE IV ; Start 03/21/17 at 12:45; Stop 03/21/17 at 13:47; Status UNV Pharmacy Profile Note 0 ml @ 0 mls/hr UNSCH OTHER ; Start 03/21/17 at 12:45 Metronidazole 100 ml @ 100 mls/hr Q6H IV Last administered on 03/25/17 04:14 ; Start 03/21/17 at 15:00 Amlodipine Besylate (Norvasc) 10 mg DAILY PEG Last administered on 03/24/17 09 :56; Start 03/22/17 at 09:00 Apixaban (Eliquis) 5 mg BID G-TUBE Last administered on 03/24/17 20:03; Start 03/21/17 at 21:00 Baclofen (Lioresal) 20 mg TID G-TUBE Last administered on 03/24/17 16:58; Start 03/21/17 at 13:00 Clonidine (Catapres) 0.1 mg Q6H PRN PO SBP>160, DBP>90; Start 03/21/17 at 12:45 Famotidine (Pepcid) 40 mg DAILY G-TUBE Last administered on 03/24/17 09:56; Start 03/22/17 at 09:00 Hydralazine HCl (Apresoline) 50 mg Q8HR PO Last administered on 03/24/17 05:18 ; Start 03/21/17 at 14:00 Levetriacetam (Keppra) 1,000 mg BID G-TUBE Last administered on 03/24/17 20:03 ; Start 03/21/17 at 21:00 Non-Formulary Medication 5 mg DAILY G-TUBE ; Start 03/22/17 at 09:00; Status UNV Vancomycin HCl 1000 mg/Sodium Chloride 250 ml @ 250 mls/hr Q8H IV Last administered on 03/21/17 21:24; Start 03/21/17 at 14:00; Stop 03/21/17 at 23:59 ; Status DC Loratadine (Claritin) 5 mg DAILY G-TUBE Last administered on 03/24/17 09:56; Start 03/22/17 at 09:00 Vancomycin HCl 1000 mg/Sodium Chloride 250 ml @ 250 mls/hr Q8H IV Last administered on 03/23/17 06:35; Start 03/22/17 at 06:00; Stop 03/23/17 at 09:28 ; Status DC Propranolol HCl (Inderal) 20 mg Q6HR PO Last administered on 03/24/17 16:58; Start 03/22/17 at 00:00 Lorazepam (Ativan) 1 mg Q8HR PO Last administered on 03/25/17 04:15; Start at 19:45 Miscellaneous Information SPECIFIC LAB TO BE DRAWN:VANCOMY... ONCE ONCE .XX ; Start 03/22/17 at 13:45; Stop 03/22/17 at 13:51; Status DC Miscellaneous Information SPECIFIC LAB TO BE DRAWN:VANCOMY... ONCE ONCE .XX Last administered on 03/22/17 21:45; Start 03/22/17 at 21:45; Stop 03/22/17 at 21:46; Status DC Guaifenesin (Robitussin Liq) 100 mg Q4H PRN PO COUGH Last administered on t 17:16; Start 03/23/17 at 10:00 Albuterol/ Ipratropium (Duoneb Neb) 1 ampule Q4HR NEB INH Last administered on 03/25/17 07:39; Start 03/23/17 at 12:00 Metoprolol Tartrate (Lopressor) 25 mg BID PRN PO HR>110; Start 03/23/17 at 10: 00 Vancomycin HCl 1250 mg/Sodium Chloride 262.5 ml @ 250 mls/hr Q8H IV Last administered on 03/25/17 05:51; Start 03/23/17 at 14:00 Miscellaneous Information SPECIFIC LAB TO BE DRAWN:VANCOMY... ONCE ONCE .XX ; Start 03/24/17 at 13:45; Stop 03/24/17 at 13:46; Status DC Potassium Chloride 100 ml @ 50 mls/hr Q2H PRN IV For Potassium 2.8 - 3.2 mEq/L ; Start 03/24/17 at 08:15 Potassium Chloride 100 ml @ 50 mls/hr Q2H PRN IV For Potassium 2.8 - 3.2 mEq/L ; Start 03/24/17 at 08:15 Potassium Bicarb/ Potassium Chloride (K-Lyte Cl Eff) 50 meq UNSCH PRN PO For Potassium 3.3 - 3.5 mEq/L; Start 03/24/17 at 08:15 Potassium Chloride 100 ml @ 25 mls/hr UNSCH PRN IV For Potassium 3.3 - 3.5 mEq /L; Start 03/24/17 at 08:15 Potassium Chloride 100 ml @ 50 mls/hr Q2H PRN IV For Potassium 3.3 - 3.5 mEq/L ; Start 03/24/17 at 08:15 Magnesium Sulfate 4 gm/Sodium Chloride 100 ml @ 50 mls/hr UNSCH PRN IV For Magnesium 0.9 - 1.1 mg/dL; Start 03/24/17 at 08:15 Magnesium Oxide (Mag-Ox) 800 mg UNSCH PRN PO For Magnesium 1.2 - 1.6 mg/dL; Start 03/24/17 at 08:15 Magnesium Sulfate 2 gm/Sodium Chloride 100 ml @ 50 mls/hr UNSCH PRN IV For Magnesium 1.2 - 1.6 mg/dL; Start 03/24/17 at 08:15 Potassium Phosphate (K-Phos) 2,000 mg Q4H PRN PO For Phosphorus < 2.5 mg/dL; Start 03/24/17 at 08:15 Sodium Phosphate 30 mmol/Sodium Chloride 250 ml @ 42 mls/hr UNSCH PRN IV For Phosphorus < 2.5 mg/dL; Start 03/24/17 at 08:15 Potassium Phosphate (K-Phos) 2,000 mg UNSCH PRN PO/TUBE SEE LABEL COMMENTS; Start 03/24/17 at 08:15 Potassium Phosphate 30 mmol/ Sodium Chloride 260 ml @ 42 mls/hr UNSCH PRN IV SEE LABEL COMMENTS; Start 03/24/17 at 08:15 Miscellaneous Information SPECIFIC LAB TO BE ... ONCE ONCE .XX ; Start 03/26 at 13:45; Stop 03/26/17 at 13:46 A/P Assessment and Plan Assessment: 31yM with history of severe traumatic brain injury with encephalopathy who presents with fever and tachycardia. Continue broad spectrum abx until cultures are negative x 48h. will keep inpatient an additional day at mother's request given her concern over fever curve. Sinus tachycardia - likely secondary to agitation - schedule ativan 1mg po TID - propranolol 20mg po q6h - prn ativan iv for breakthrough agitation/tachycardia. Fevers - likely central at this point - procalcitonin 0.24 - broaden to vanc/cefepime/flagyl - send durbin cultures - ID consult - unlikely to be acute infectious etiology BORDERLINE FEVERS AXILLARY HYPERTENSION- HOME MEDS DYSPHAGIA -SP PEG CHRONIC PERSISTENT VEGETATIVE STATE AFTER TBI RESTART TUBE FEEDS HX MDRO continue home meds. Discharge Planning NEEDS ID CLEARANCE Hudson Luz DO Mar 25, 2017 08:31
[2017-03-25] MEDS: BACLOFEN 20 MG TAB G-TUBE SCH ×3 (09:13→18:35)
[2017-03-25] MEDS: LORATADINE 10 MG TAB G-TUBE SCH (09:13)
[2017-03-25] MEDS: DOCUSATE SODIUM 50 MG/SENNA 8.6 MG TAB PO SCH ×2 (09:13→21:00)
[2017-03-25] MEDS: levETIRAcetam 500 MG TAB G-TUBE SCH ×2 (09:13→21:05)
[2017-03-25] MEDS: APIXABAN 5 MG TABLET G-TUBE SCH ×2 (09:13→21:05)
[2017-03-25] MEDS: FAMOTIDINE 20 MG TAB G-TUBE SCH (09:14)
--- NOTE | 2017-03-25 15:11 | HHI.IDPN ---
Subjective Subjective Remarks Notes reviewed Temps better He is on T-piece C/S PSAE, no sensitivity testing yet BP ok, not on pressors Antibiotics vanco cefepime flagyl Past Medical History Reviewed Allergies: Coded Allergies: haloperidol (Unverified Adverse Reaction, Severe, Seizures, 02/21/17) Objective . Vital Signs Date Time Temp Pulse Resp B/P (MAP) Pulse Ox O2 Delivery O2 Flow Rate FiO2 03/25/17 07:40 97 T-piece 4.00 28 03/25/17 06:00 62 03/25/17 04:00 92 03/25/17 04:00 98.4 71 22 100/57 (71) 99 03/25/17 02:00 78 03/25/17 00:00 98.3 53 17 94/51 (65) 99 03/25/17 00:00 60 03/24/17 22:00 67 03/24/17 20:00 98.5 59 22 94/52 (66) 100 03/24/17 20:00 78 03/24/17 19:34 98 T-piece 5.00 28 03/24/17 18:00 67 03/24/17 16:00 99.6 62 7 104/57 (73) 100 03/24/17 16:00 62 . Laboratory Tests Test 03/24/17 04:51 03/25/17 04:26 White Blood Count 5.0 TH/MM3 4.1 TH/MM3 Red Blood Count 3.64 MIL/MM3 3.38 MIL/MM3 Hemoglobin 11.3 GM/DL 10.5 GM/DL Hematocrit 33.5 % 31.5 % Mean Corpuscular Volume 92.0 FL 93.1 FL Mean Corpuscular Hemoglobin 31.0 PG 30.9 PG Mean Corpuscular Hemoglobin Concent 33.7 % 33.2 % Red Cell Distribution Width 12.7 % 12.7 % Platelet Count 189 TH/MM3 176 TH/MM3 Mean Platelet Volume 10.7 FL 10.7 FL Neutrophils (%) (Auto) 59.4 % 47.0 % Lymphocytes (%) (Auto) 22.5 % 32.0 % Monocytes (%) (Auto) 14.5 % 17.1 % Eosinophils (%) (Auto) 3.2 % 3.5 % Basophils (%) (Auto) 0.4 % 0.4 % Neutrophils # (Auto) 3.0 TH/MM3 1.9 TH/MM3 Lymphocytes # (Auto) 1.1 TH/MM3 1.3 TH/MM3 Monocytes # (Auto) 0.7 TH/MM3 0.7 TH/MM3 Eosinophils # (Auto) 0.2 TH/MM3 0.1 TH/MM3 Basophils # (Auto) 0.0 TH/MM3 0.0 TH/MM3 CBC Comment DIFF FINAL DIFF FINAL Differential Comment Laboratory Tests Test 03/24/17 04:51 03/24/17 10:40 03/25/17 04:26 Blood Urea Nitrogen 6 MG/DL 5 MG/DL Creatinine 0.63 MG/DL 0.63 MG/DL Random Glucose 102 MG/DL 101 MG/DL Total Protein 6.9 GM/DL 6.6 GM/DL Albumin 3.0 GM/DL 2.9 GM/DL Calcium Level 8.3 MG/DL 8.4 MG/DL Phosphorus Level 3.0 MG/DL 2.9 MG/DL 2.5 MG/DL Magnesium Level 1.8 MG/DL 1.8 MG/DL Alkaline Phosphatase 81 U/L 74 U/L Aspartate Amino Transf (AST/SGOT) 24 U/L 20 U/L Alanine Aminotransferase (ALT/SGPT) 41 U/L 38 U/L Total Bilirubin 0.4 MG/DL 0.2 MG/DL Sodium Level 141 MEQ/L 142 MEQ/L Potassium Level 3.3 MEQ/L 3.6 MEQ/L Chloride Level 107 MEQ/L 108 MEQ/L Carbon Dioxide Level 24.9 MEQ/L 27.5 MEQ/L Anion Gap 9 MEQ/L 7 MEQ/L Estimat Glomerular Filtration Rate 181 ML/MIN 181 ML/MIN Hemoglobin A1c 5.4 % Free Thyroxine 1.27 NG/DL Thyroid Stimulating Hormone 3rd Gen 2.090 uIU/ML Microbiology Date/Time Source Procedure Growth Status 03/23/17 16:00 Sputum Endotracheal Gram Stain - Final Resulted 03/23/17 16:00 Sputum Culture - Preliminary Pseudomonas Aeruginosa Resulted Imaging Last Impressions Chest X-Ray 03/21/17 [id number] Signed Impressions: Service Date/Time: Tuesday, March 21, 2017 08:25 - CONCLUSION: 1. Mild increased perihilar interstitial markings consistent with mild pulmonary vascular congestion versus pneumonia. Clinical correlation is recommended. 2. Cardiomegaly. Peter Nolan MD Physical Exam GENERAL: Awake, no interaction, not in respiratory distress. On T piece SKIN: Warm and dry. No generalized rash, no ecchymoses and no evidence of embolic lesions. HEAD: Atraumatic. Normocephalic. EYES: [place] conjunctiva. No petechia or hemorrhage. Pupils equal, round and reactive to light. No scleral icterus. No injection or drainage. EARS, NOSE AND THROAT: Nose without bleeding or purulent nasal discharge. Mucous membranes moist. NECK: Tracheostomy in plce with thick juarez secretions CARDIOVASCULAR: Regular rate and rhythm. Tachycardic No murmurs, rubs or gallops heard RESPIRATORY: Clear to auscultation. Breath sounds equal bilaterally. No rales , wheezing or rhonchi. Decreased breath sounds at the bases ABDOMEN: Soft, nondistended, no reaction to palpation.. Bowel sounds present and normoactive. PEG site looks okay. EXTREMITIES: No clubbing, cyanosis, or edema. Both feet are dorsiflexed. Well perfused and warm. NEUROLOGICAL: No interaction. Extremities are spastic. PSYCHIATRIC: Unable to assess LINE: No evidence of infection : [place] catheter in place, urine looks clear Assessment & Plan Remarks IMPRESSION Sepsis, recurrent, very suspicious for pulmonary, ?plugging - CXR with some new perihilar infiltrates, repeat now normal - both fever and lekocytosis present on admission are now resolved Recent Rx for PSAE PNA Hx MDRO infections with MRSA and ESBL+ Chronic vegetative state from anoxic injury Chronic respiratory failure, S/P trach Recent Rx for Strep viridans bacteremia from midline Hx DVT both UE RECOMMENDATION Continue Cefepime Stop vancomycin Stop Flagyl Follow new C/S Follow temps Monitor progress D/W Michelle Anderson MD Mar 25, 2017 15:11
[2017-03-26] VITALS (14 sets, daily range): BP systolic 89–111; BP diastolic 51–58; PULSE 63–100; RESP 14–22; TEMP 98.5–99.7; O2SAT 98–100
[2017-03-26] MEDS: PROPRANOLOL HCL 20 MG TAB PO SCH ×3 (00:04→11:59)
[2017-03-26] MEDS: RESP: ALBUTEROL 2.5 MG/IPRATROPIUM 0.5 MG NEB (SCH) INH ×6 (03:28→23:48)
[2017-03-26] MEDS: CHLORHEXIDINE GLUCONATE 2 % 1 PACK (2 CLOTHS) TOP SCH (04:00)
[2017-03-26] MEDS: metroNIDAZOLE 500 MG INJ 100 ML IV SCH ×2 (04:09→08:19)
[2017-03-26] MEDS: CEFEPIME INJ 2,000 MG in SODIUM CHLORIDE 0.9% INJ 100 ML IV SCH ×3 (04:10→20:52)
[2017-03-26 04:43] LABS: BASOPHIL % 0.6 % (0.0-2.0); EOSINOPHIL # 0.2 TH/MM3 (0-0.4); EOSINOPHIL % 3.8 % (0.0-4.0); HEMATOCRIT 30.4 % (39.0-51.0); HEMO FLAGS DIFF FINAL; LYMPH % 33.1 % (9.0-44.0); LYMPHOCYTE # 1.4 TH/MM3 (1.0-4.8); MEAN CELL VOLUME 91.7 FL (80.0-100.0); MEAN CORPUSCULAR HEMOGLOBIN 31.7 PG (27.0-34.0); MEAN CORPUSCULAR HGB CONC 34.5 % (32.0-36.0); MONO % 17.3 % (0.0-8.0); NEUT % 45.2 % (16.0-70.0); PLATELET COUNT 171 TH/MM3 (150-450); RED BLOOD COUNT 3.31 MIL/MM3 (4.50-5.90); RED CELL DISTRIBUTION WIDTH 12.6 % (11.6-17.2); WHITE BLOOD COUNT 4.4 TH/MM3 (4.0-11.0)
[2017-03-26 04:53] LABS: ALT (GPT) 40 U/L (12-78); ANION GAP 7 MEQ/L (5-15); AST (GOT) 22 U/L (15-37); BICARBONATE 27.2 MEQ/L (21.0-32.0); BLOOD UREA NITROGEN 4 MG/DL (7-18); CHLORIDE 107 MEQ/L (98-107); GLOMERULAR FILTRATION RATE 195 ML/MIN (>89); MAGNESIUM 1.9 MG/DL (1.5-2.5); POTASSIUM 3.3 MEQ/L (3.5-5.1); SODIUM (NA) 141 MEQ/L (136-145)
[2017-03-26 04:55] LABS: ALKALINE PHOSPHATASE 69 U/L (45-117); TOTAL BILIRUBIN ADULT 0.2 MG/DL (0.2-1.0)
[2017-03-26] MEDS: VANCOMYCIN INJ 1,250 MG in SODIUM CHLOR 0.9% 250 ML INJ 250 ML IV SCH (06:05)
[2017-03-26] MEDS: hydrALAZINE HCL 50 MG TAB PO SCH ×3 (06:05→20:53)
[2017-03-26] MEDS: LORazepam 1 MG TAB PO SCH ×3 (06:05→20:53)
[2017-03-26] MEDS: BACLOFEN 20 MG TAB G-TUBE SCH ×3 (08:18→15:38)
[2017-03-26] MEDS: FAMOTIDINE 20 MG TAB G-TUBE SCH (08:18)
[2017-03-26] MEDS: LORATADINE 10 MG TAB G-TUBE SCH (08:18)
[2017-03-26] MEDS: APIXABAN 5 MG TABLET G-TUBE SCH ×2 (08:18→20:54)
[2017-03-26] MEDS: levETIRAcetam 500 MG TAB G-TUBE SCH ×2 (08:18→20:53)
[2017-03-26] MEDS: POTASSIUM CHLOR 20 MEQ PREMIX 100 ML IV PRN ×2 (08:19→13:11)
[2017-03-26] MEDS: DOCUSATE SODIUM 50 MG/SENNA 8.6 MG TAB PO SCH ×2 (08:20→20:53)
--- NOTE | 2017-03-26 08:34 | HHI.PR ---
Subjective Remarks This is a 31yM with history of severe traumatic brain injury and severe neurologic deficit in persistent vegetative state who was recently admitted and discharged from our facility after a 3 week hospital stay for pseudomonas pneumonia. He was discharged yesterday to his SNF and re-presents today with fever and tachycardia. per his mother, he gets tachycardic any time he gets agitated. He was running low-grade temperatures up to 100.3F at our facility, but today is > 102 F. He has no change in sputum production, oxygen requirement , or any other symptoms. His wbc is elevated, but near baseline for him over the last few weeks. Procalcitonin level is 0.24 suggestive against an acute bacterial infection. Patient is persistently chronically encephalopathic and can answer no additional information. Mother is concerned that he "just doesn't look right" but cannot identify any additional changes since he left yesterday. 03/22: no changes. HR came down appropriately. non-toxic appearing. fevers are lower, but persistent, now about where they were when he left the hospital last week. Talking with his mother, she is still concerned about the fevers and feels like he is not completely back to baseline. will consider keeping inpatient another day, although on my physical exam, he is stable and at baseline from prior exams. 03-23 PATIENT TRANSFERRED TO OUR SERVICE TODAY REMAINS NON VERBAL SOME FEVERS HAS BEEN SEEN BY ID SYDNEE RN CHART REVIEWED 03-24 NO COMPLAINTS REMAINS ON TRACH BORDERLINE FEVERS DW RN 03-25 HAS HAD BORDERLINE BLOOD PRESSURE ISSUES DW RN REMAINS NONVERBAL HAS REMAINED AFEBRILE 03-26 POTASSIUM IS LOW WILL REPLACE BY PROTOCOLS AWAIT ID CLEARANCE NONVERBAL Objective Vitals Vital Signs Date Time Temp Pulse Resp B/P (MAP) Pulse Ox O2 Delivery O2 Flow Rate FiO2 03/26/17 07:45 98 T-piece 6.00 28 03/26/17 06:00 95 03/26/17 04:00 99.5 63 20 98/51 (67) 100 03/26/17 04:00 63 03/26/17 03:31 100 T-piece 6.00 28 03/26/17 02:00 71 03/26/17 00:00 98.5 70 16 105/54 (71) 100 03/26/17 00:00 70 03/25/17 23:25 100 T-piece 5.00 28 03/25/17 22:00 68 03/25/17 20:00 69 03/25/17 20:00 99.2 69 23 120/57 (78) 96 03/25/17 19:24 99 T-piece 6.00 28 03/25/17 18:00 73 03/25/17 16:00 78 03/25/17 16:00 99.1 78 11 124/58 (80) 100 03/25/17 14:00 72 03/25/17 12:00 99.3 113 4 142/79 (100) 100 03/25/17 12:00 113 03/25/17 10:00 79 I/O 03/25/17 03/25/17 03/25/17 03/26/17 03/26/17 03/26/17 07:00 15:00 23:00 07:00 15:00 23:00 Intake Total 769 ml 783 ml 489 ml Output Total 900 ml 1400 ml 900 ml Balance -131 ml -617 ml -411 ml Tube Feeding 509 ml 543 ml 489 ml Other 260 ml 240 ml Output Urine Total 900 ml 1400 ml 900 ml # Bowel Movements 2 0 Result Diagram: 03/26/1731603/26/17316 Other Results Laboratory Tests Test 03/24/17 04:51 03/24/17 10:40 03/24/17 14:27 03/25/17 04:26 White Blood Count 5.0 TH/MM3 4.1 TH/MM3 Red Blood Count 3.64 MIL/MM3 3.38 MIL/MM3 Hemoglobin 11.3 GM/DL 10.5 GM/DL Hematocrit 33.5 % 31.5 % Mean Corpuscular Volume 92.0 FL 93.1 FL Mean Corpuscular Hemoglobin 31.0 PG 30.9 PG Mean Corpuscular Hemoglobin Concent 33.7 % 33.2 % Red Cell Distribution Width 12.7 % 12.7 % Platelet Count 189 TH/MM3 176 TH/MM3 Mean Platelet Volume 10.7 FL 10.7 FL Neutrophils (%) (Auto) 59.4 % 47.0 % Lymphocytes (%) (Auto) 22.5 % 32.0 % Monocytes (%) (Auto) 14.5 % 17.1 % Eosinophils (%) (Auto) 3.2 % 3.5 % Basophils (%) (Auto) 0.4 % 0.4 % Neutrophils # (Auto) 3.0 TH/MM3 1.9 TH/MM3 Lymphocytes # (Auto) 1.1 TH/MM3 1.3 TH/MM3 Monocytes # (Auto) 0.7 TH/MM3 0.7 TH/MM3 Eosinophils # (Auto) 0.2 TH/MM3 0.1 TH/MM3 Basophils # (Auto) 0.0 TH/MM3 0.0 TH/MM3 CBC Comment DIFF FINAL DIFF FINAL Differential Comment Blood Urea Nitrogen 6 MG/DL 5 MG/DL Creatinine 0.63 MG/DL 0.63 MG/DL Random Glucose 102 MG/DL 101 MG/DL Total Protein 6.9 GM/DL 6.6 GM/DL Albumin 3.0 GM/DL 2.9 GM/DL Calcium Level 8.3 MG/DL 8.4 MG/DL Phosphorus Level 3.0 MG/DL 2.9 MG/DL 2.5 MG/DL Magnesium Level 1.8 MG/DL 1.8 MG/DL Alkaline Phosphatase 81 U/L 74 U/L Aspartate Amino Transf (AST/SGOT) 24 U/L 20 U/L Alanine Aminotransferase (ALT/SGPT) 41 U/L 38 U/L Total Bilirubin 0.4 MG/DL 0.2 MG/DL Sodium Level 141 MEQ/L 142 MEQ/L Potassium Level 3.3 MEQ/L 3.6 MEQ/L Chloride Level 107 MEQ/L 108 MEQ/L Carbon Dioxide Level 24.9 MEQ/L 27.5 MEQ/L Anion Gap 9 MEQ/L 7 MEQ/L Estimat Glomerular Filtration Rate 181 ML/MIN 181 ML/MIN Hemoglobin A1c 5.4 % Free Thyroxine 1.27 NG/DL Thyroid Stimulating Hormone 3rd Gen 2.090 uIU/ML Vancomycin Level Trough 16.7 MCG/ML Test 03/26/17 03:17 White Blood Count 4.4 TH/MM3 Red Blood Count 3.31 MIL/MM3 Hemoglobin 10.5 GM/DL Hematocrit 30.4 % Mean Corpuscular Volume 91.7 FL Mean Corpuscular Hemoglobin 31.7 PG Mean Corpuscular Hemoglobin Concent 34.5 % Red Cell Distribution Width 12.6 % Platelet Count 171 TH/MM3 Mean Platelet Volume 10.9 FL Neutrophils (%) (Auto) 45.2 % Lymphocytes (%) (Auto) 33.1 % Monocytes (%) (Auto) 17.3 % Eosinophils (%) (Auto) 3.8 % Basophils (%) (Auto) 0.6 % Neutrophils # (Auto) 2.0 TH/MM3 Lymphocytes # (Auto) 1.4 TH/MM3 Monocytes # (Auto) 0.8 TH/MM3 Eosinophils # (Auto) 0.2 TH/MM3 Basophils # (Auto) 0.0 TH/MM3 CBC Comment DIFF FINAL Differential Comment Blood Urea Nitrogen 4 MG/DL Creatinine 0.59 MG/DL Random Glucose 96 MG/DL Total Protein 6.3 GM/DL Albumin 2.7 GM/DL Calcium Level 8.1 MG/DL Phosphorus Level 2.4 MG/DL Magnesium Level 1.9 MG/DL Alkaline Phosphatase 69 U/L Aspartate Amino Transf (AST/SGOT) 22 U/L Alanine Aminotransferase (ALT/SGPT) 40 U/L Total Bilirubin 0.2 MG/DL Sodium Level 141 MEQ/L Potassium Level 3.3 MEQ/L Chloride Level 107 MEQ/L Carbon Dioxide Level 27.2 MEQ/L Anion Gap 7 MEQ/L Estimat Glomerular Filtration Rate 195 ML/MIN Imaging Last Impressions Chest X-Ray 03/25/17 0000 Signed Impressions: Service Date/Time: Saturday, March 25, 2017 04:26 - CONCLUSION: 1. Mild cardiomegaly. 2. Clear lungs. Zachariah Echeverria Jr., MD Objective Remarks GENERAL: NOT AWAKE OR ALERT-- FOLLOWS NO COMMANDS SKIN: Warm and dry. SWEATING HEAD: Atraumatic. Normocephalic. EYES: Pupils equal and round. No scleral icterus. No injection or drainage. ENT: No nasal bleeding or discharge. Mucous membranes pink and moist. NECK: Trachea midline. No JVD. TRACHEOSTOMY IN PLACE CARDIOVASCULAR: Regular rate and rhythm. S1, S2 NO S3 OR S4 NO HEAVE OR THRILL RESPIRATORY: No accessory muscle use. Clear to auscultation. Breath sounds equal bilaterally. GASTROINTESTINAL: Abdomen soft, non-tender, nondistended. Hepatic and splenic margins not palpable. PEG MUSCULOSKELETAL: Extremities without clubbing, cyanosis, or edema. No obvious deformities. CONTRACTURES UPPER AND LOWER EXTREMITIES NEUROLOGICAL: Awake and NOT alert. No obvious cranial nerve deficits. PERSISTENT VEGETATIVE STATE- NOT ABLE TO ASSESS PSYCHIATRIC: INAppropriate mood and affect; insight and judgment ABnormal. PERSISTENT VEGETATIVE STATE Medications and IVs Current Medications Acetaminophen (Tylenol Supp) 650 mg ONCE ONCE RECTAL Last administered on 03/21t 09:21; Start 03/21/17 at 08:00; Stop 03/21/17 at 08:01; Status DC Sodium Chloride 1,000 ml @ 1,000 mls/hr Q1H ONCE IV Last administered on 09:20; Start 03/21/17 at 07:55; Stop 03/21/17 at 08:54; Status DC Sodium Chloride 1,000 ml @ 1,000 mls/hr Q1H ONCE IV Last administered on 09:21; Start 03/21/17 at 07:55; Stop 03/21/17 at 08:54; Status DC Sodium Chloride 100 ml @ 1,000 mls/hr Q6M ONCE IV Last administered on 09:21; Start 03/21/17 at 07:55; Stop 03/21/17 at 08:00; Status DC Cefepime HCl 2000 mg/Sodium Chloride 100 ml @ 200 mls/hr ONCE ONCE IV Last administered on 03/21/17 09:52; Start 03/21/17 at 08:00; Stop 03/21/17 at 08:29 ; Status DC Azithromycin 500 mg/Sodium Chloride 250 ml @ 250 mls/hr ONCE ONCE IV Last administered on 03/21/17 09:21; Start 03/21/17 at 08:00; Stop 03/21/17 at 08:59 ; Status DC Lorazepam (Ativan Inj) 1 mg ONCE ONCE IV PUSH Last administered on 03/21/17 11:54; Start 03/21/17 at 10:15; Stop 03/21/17 at 10:16; Status DC Albuterol/ Ipratropium (Duoneb Neb) 1 ampule ONCE ONCE NEB Last administered on 03/21/17 11:49; Start 03/21/17 at 11:45; Stop 03/21/17 at 11:46; Status DC Ketorolac Tromethamine (Toradol Inj) 30 mg ONCE ONCE IV PUSH Last administered on 03/21/17 11:55; Start 03/21/17 at 11:45; Stop 03/21/17 at 11:46 ; Status DC Lorazepam (Ativan Inj) 1 mg ONCE ONCE IV PUSH Last administered on 03/21/17 13:37; Start 03/21/17 at 12:15; Stop 03/21/17 at 12:16; Status DC Propranolol HCl (Inderal) 10 mg Q8HR PO Last administered on 03/21/17t 21:25; Start 03/21/17 at 14:00; Stop 03/21/17 at 22:00; Status DC Magnesium Oxide (Mag-Ox) 800 mg UNSCH PRN PO For Magnesium 1.2 - 1.6 mg/dL; Start 03/21/17 at 12:45 Magnesium Sulfate 4 gm/Sodium Chloride 100 ml @ 50 mls/hr UNSCH PRN IV For Magnesium 0.9 - 1.1 mg/dL; Start 03/21/17 at 12:45 Magnesium Sulfate 2 gm/Sodium Chloride 100 ml @ 50 mls/hr UNSCH PRN IV For Magnesium 1.2 - 1.6 mg/dL; Start 03/21/17 at 12:45 Potassium Chloride 100 ml @ 50 mls/hr Q2H PRN IV For Potassium 2.8 - 3.2 mEq/ L Last administered on 03/24/17 16:03; Start 03/21/17 at 12:45 Potassium Chloride 100 ml @ 50 mls/hr Q2H PRN IV For Potassium 3.3 - 3.5 mEq/ L Last administered on 03/26/17 08:19; Start 03/21/17 at 12:45 Potassium Chloride 100 ml @ 50 mls/hr Q2H PRN IV For Potassium 2.8 - 3.2 mEq/L ; Start 03/21/17 at 12:45 Potassium Chloride 100 ml @ 25 mls/hr UNSCH PRN IV For Potassium 3.3 - 3.5 mEq /L; Start 03/21/17 at 12:45 Potassium Phosphate (K-Phos) 2,000 mg Q4H PRN PO For Phosphorus < 2.5 mg/dL; Start 03/21/17 at 12:45 Potassium Phosphate (K-Phos) 2,000 mg UNSCH PRN PO/TUBE SEE LABEL COMMENTS; Start 03/21/17 at 12:45 Potassium Phosphate 30 mmol/ Sodium Chloride 260 ml @ 42 mls/hr UNSCH PRN IV SEE LABEL COMMENTS; Start 03/21/17 at 12:45 Sodium Phosphate 30 mmol/Sodium Chloride 250 ml @ 42 mls/hr UNSCH PRN IV For Phosphorus < 2.5 mg/dL; Start 03/21/17 at 12:45 Albuterol/ Ipratropium (Duoneb Neb) 1 ampule Q6HR NEB INH Last administered on 03/23/17 04:02; Start 03/21/17 at 16:00; Stop 03/23/17 at 09:09; Status DC Albuterol/ Ipratropium (Duoneb Neb) 1 ampule Q2HR NEB PRN INH WHEEZING; Start 03/21/17 at 12:45 Acetaminophen (Tylenol) 650 mg Q6H PRN PO PAIN 1-10 AND/OR FEVER >101F Last administered on 03/21/17 21:24; Start 03/21/17 at 12:45 Lorazepam (Ativan Inj) 1 mg Q1H PRN IV PUSH Agitation/Sedation Last administered on 03/22/17 15:37; Start 03/21/17 at 12:45 Miscellaneous Information 1 [id number] XX Last administered on 03/21/17 12:45; Start 03/21/17 at 12:45 Chlorhexidine Gluconate (Chlorhexidine 2% Cloth) 3 pack Taper DAILY@04 TOP Last administered on 03/24/17 04:00; Start 03/22/17 at 04:00; Stop 03/18/18 at 03:59 Chlorhexidine Gluconate (Chlorhexidine 2% Cloth) 3 pack UNSCH PRN TOP HYGIENIC CARE; Start 03/21/17 at 12:45 Senna/Docusate Sodium (Sanam-Colace) 1 tab BID PO Last administered on 08:20; Start 03/21/17 at 21:00 Cefepime HCl 2000 mg/Sodium Chloride 100 ml @ 200 mls/hr Q8H IV Last administered on 03/26/17 04:10; Start 03/21/17 at 20:00 Vancomycin HCl 1250 mg/Sodium Chloride 262.5 ml @ 250 mls/hr ONCE ONCE IV ; Start 03/21/17 at 12:45; Stop 03/21/17 at 13:47; Status UNV Pharmacy Profile Note 0 ml @ 0 mls/hr UNSCH OTHER ; Start 03/21/17 at 12:45 Metronidazole 100 ml @ 100 mls/hr Q6H IV Last administered on 03/26/17 08:19 ; Start 03/21/17 at 15:00 Amlodipine Besylate (Norvasc) 10 mg DAILY PEG Last administered on 03/24/17 09 :56; Start 03/22/17 at 09:00 Apixaban (Eliquis) 5 mg BID G-TUBE Last administered on 03/26/17 08:18; Start 03/21/17 at 21:00 Baclofen (Lioresal) 20 mg TID G-TUBE Last administered on 03/26/17 08:18; Start 03/21/17 at 13:00 Clonidine (Catapres) 0.1 mg Q6H PRN PO SBP>160, DBP>90; Start 03/21/17 at 12:45 Famotidine (Pepcid) 40 mg DAILY G-TUBE Last administered on 03/26/17 08:18; Start 03/22/17 at 09:00 Hydralazine HCl (Apresoline) 50 mg Q8HR PO Last administered on 03/26/17 06:05 ; Start 03/21/17 at 14:00 Levetriacetam (Keppra) 1,000 mg BID G-TUBE Last administered on 03/26/17 08:18 ; Start 03/21/17 at 21:00 Non-Formulary Medication 5 mg DAILY G-TUBE ; Start 03/22/17 at 09:00; Status UNV Vancomycin HCl 1000 mg/Sodium Chloride 250 ml @ 250 mls/hr Q8H IV Last administered on 03/21/17 21:24; Start 03/21/17 at 14:00; Stop 03/21/17 at 23:59 ; Status DC Loratadine (Claritin) 5 mg DAILY G-TUBE Last administered on 03/26/17 08:18; Start 03/22/17 at 09:00 Vancomycin HCl 1000 mg/Sodium Chloride 250 ml @ 250 mls/hr Q8H IV Last administered on 03/23/17 06:35; Start 03/22/17 at 06:00; Stop 03/23/17 at 09:28 ; Status DC Propranolol HCl (Inderal) 20 mg Q6HR PO Last administered on 03/26/17 06:05; Start 03/22/17 at 00:00 Lorazepam (Ativan) 1 mg Q8HR PO Last administered on 03/26/17 06:05; Start at 19:45 Miscellaneous Information SPECIFIC LAB TO BE DRAWN:VANCOMY... ONCE ONCE .XX ; Start 03/22/17 at 13:45; Stop 03/22/17 at 13:51; Status DC Miscellaneous Information SPECIFIC LAB TO BE DRAWN:VANCOMY... ONCE ONCE .XX Last administered on 03/22/17t 21:45; Start 03/22/17 at 21:45; Stop 03/22/17 at 21:46; Status DC Guaifenesin (Robitussin Liq) 100 mg Q4H PRN PO COUGH Last administered on 17:16; Start 03/23/17 at 10:00 Albuterol/ Ipratropium (Duoneb Neb) 1 ampule Q4HR NEB INH Last administered on 03/26/17 07:44; Start 03/23/17 at 12:00 Metoprolol Tartrate (Lopressor) 25 mg BID PRN PO HR>110; Start 03/23/17 at 10: 00 Vancomycin HCl 1250 mg/Sodium Chloride 262.5 ml @ 250 mls/hr Q8H IV Last administered on 03/26/17 06:05; Start 03/23/17 at 14:00 Miscellaneous Information SPECIFIC LAB TO BE DRAWN:VANCOMY... ONCE ONCE .XX ; Start 03/24/17 at 13:45; Stop 03/24/17 at 13:46; Status DC Potassium Chloride 100 ml @ 50 mls/hr Q2H PRN IV For Potassium 2.8 - 3.2 mEq/L ; Start 03/24/17 at 08:15 Potassium Chloride 100 ml @ 50 mls/hr Q2H PRN IV For Potassium 2.8 - 3.2 mEq/L ; Start 03/24/17 at 08:15 Potassium Bicarb/ Potassium Chloride (K-Lyte Cl Eff) 50 meq UNSCH PRN PO For Potassium 3.3 - 3.5 mEq/L; Start 03/24/17 at 08:15 Potassium Chloride 100 ml @ 25 mls/hr UNSCH PRN IV For Potassium 3.3 - 3.5 mEq /L; Start 03/24/17 at 08:15 Potassium Chloride 100 ml @ 50 mls/hr Q2H PRN IV For Potassium 3.3 - 3.5 mEq/L ; Start 03/24/17 at 08:15 Magnesium Sulfate 4 gm/Sodium Chloride 100 ml @ 50 mls/hr UNSCH PRN IV For Magnesium 0.9 - 1.1 mg/dL; Start 03/24/17 at 08:15 Magnesium Oxide (Mag-Ox) 800 mg UNSCH PRN PO For Magnesium 1.2 - 1.6 mg/dL; Start 03/24/17 at 08:15 Magnesium Sulfate 2 gm/Sodium Chloride 100 ml @ 50 mls/hr UNSCH PRN IV For Magnesium 1.2 - 1.6 mg/dL; Start 03/24/17 at 08:15 Potassium Phosphate (K-Phos) 2,000 mg Q4H PRN PO For Phosphorus < 2.5 mg/dL; Start 03/24/17 at 08:15 Sodium Phosphate 30 mmol/Sodium Chloride 250 ml @ 42 mls/hr UNSCH PRN IV For Phosphorus < 2.5 mg/dL; Start 03/24/17 at 08:15 Potassium Phosphate (K-Phos) 2,000 mg UNSCH PRN PO/TUBE SEE LABEL COMMENTS; Start 03/24/17 at 08:15 Potassium Phosphate 30 mmol/ Sodium Chloride 260 ml @ 42 mls/hr UNSCH PRN IV SEE LABEL COMMENTS; Start 03/24/17 at 08:15 Miscellaneous Information SPECIFIC LAB TO BE ... ONCE ONCE .XX ; Start 03/26 at 13:45; Stop 03/26/17 at 13:46 A/P Assessment and Plan Assessment: 31yM with history of severe traumatic brain injury with encephalopathy who presents with fever and tachycardia. Continue broad spectrum abx until cultures are negative x 48h. will keep inpatient an additional day at mother's request given her concern over fever curve. Sinus tachycardia - likely secondary to agitation - schedule ativan 1mg po TID - propranolol 20mg po q6h - prn ativan iv for breakthrough agitation/tachycardia. Fevers - likely central at this point - procalcitonin 0.24 - ONLY ON CEFEPIME NOW- MONITOR FOR FEVERS - send durbin cultures - ID consult - unlikely to be acute infectious etiology BORDERLINE FEVERS AXILLARY HYPERTENSION- HOME MEDS DYSPHAGIA -SP PEG CHRONIC PERSISTENT VEGETATIVE STATE AFTER TBI RESTART TUBE FEEDS HX MDRO HYPOKALEMIA REPLACE BY PROTOCOLS continue home meds. Discharge Planning NEEDS ID CLEARANCE Hudson Luz DO Mar 26, 2017 08:34
--- NOTE | 2017-03-26 10:32 | HHI.IDPN ---
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 Notes reviewed D/W RN Temps better He is on T-piece C/S PSAE BP ok, not on pressors Antibiotics cefepime Past Medical History Reviewed Allergies: Coded Allergies: haloperidol (Unverified Adverse Reaction, Severe, Seizures, 02/21/17) Objective . Vital Signs Date Time Temp Pulse Resp B/P (MAP) Pulse Ox O2 Delivery O2 Flow Rate FiO2 03/26/17 07:45 98 T-piece 6.00 28 03/26/17 06:00 95 03/26/17 04:00 99.5 63 20 98/51 (67) 100 03/26/17 04:00 63 03/26/17 03:31 100 T-piece 6.00 28 03/26/17 02:00 71 03/26/17 00:00 98.5 70 16 105/54 (71) 100 03/26/17 00:00 70 03/25/17 23:25 100 T-piece 5.00 28 03/25/17 22:00 68 03/25/17 20:00 69 03/25/17 20:00 99.2 69 23 120/57 (78) 96 03/25/17 19:24 99 T-piece 6.00 28 03/25/17 18:00 73 03/25/17 16:00 78 03/25/17 16:00 99.1 78 11 124/58 (80) 100 03/25/17 14:00 72 03/25/17 12:00 99.3 113 4 142/79 (100) 100 03/25/17 12:00 113 . Laboratory Tests Test 03/25/17 04:26 03/26/17 03:17 White Blood Count 4.1 TH/MM3 4.4 TH/MM3 Red Blood Count 3.38 MIL/MM3 3.31 MIL/MM3 Hemoglobin 10.5 GM/DL 10.5 GM/DL Hematocrit 31.5 % 30.4 % Mean Corpuscular Volume 93.1 FL 91.7 FL Mean Corpuscular Hemoglobin 30.9 PG 31.7 PG Mean Corpuscular Hemoglobin Concent 33.2 % 34.5 % Red Cell Distribution Width 12.7 % 12.6 % Platelet Count 176 TH/MM3 171 TH/MM3 Mean Platelet Volume 10.7 FL 10.9 FL Neutrophils (%) (Auto) 47.0 % 45.2 % Lymphocytes (%) (Auto) 32.0 % 33.1 % Monocytes (%) (Auto) 17.1 % 17.3 % Eosinophils (%) (Auto) 3.5 % 3.8 % Basophils (%) (Auto) 0.4 % 0.6 % Neutrophils # (Auto) 1.9 TH/MM3 2.0 TH/MM3 Lymphocytes # (Auto) 1.3 TH/MM3 1.4 TH/MM3 Monocytes # (Auto) 0.7 TH/MM3 0.8 TH/MM3 Eosinophils # (Auto) 0.1 TH/MM3 0.2 TH/MM3 Basophils # (Auto) 0.0 TH/MM3 0.0 TH/MM3 CBC Comment DIFF FINAL DIFF FINAL Differential Comment Laboratory Tests Test 03/24/17 10:40 03/25/17 04:26 03/26/17 03:17 Phosphorus Level 2.9 MG/DL 2.5 MG/DL 2.4 MG/DL Blood Urea Nitrogen 5 MG/DL 4 MG/DL Creatinine 0.63 MG/DL 0.59 MG/DL Random Glucose 101 MG/DL 96 MG/DL Total Protein 6.6 GM/DL 6.3 GM/DL Albumin 2.9 GM/DL 2.7 GM/DL Calcium Level 8.4 MG/DL 8.1 MG/DL Magnesium Level 1.8 MG/DL 1.9 MG/DL Alkaline Phosphatase 74 U/L 69 U/L Aspartate Amino Transf (AST/SGOT) 20 U/L 22 U/L Alanine Aminotransferase (ALT/SGPT) 38 U/L 40 U/L Total Bilirubin 0.2 MG/DL 0.2 MG/DL Sodium Level 142 MEQ/L 141 MEQ/L Potassium Level 3.6 MEQ/L 3.3 MEQ/L Chloride Level 108 MEQ/L 107 MEQ/L Carbon Dioxide Level 27.5 MEQ/L 27.2 MEQ/L Anion Gap 7 MEQ/L 7 MEQ/L Estimat Glomerular Filtration Rate 181 ML/MIN 195 ML/MIN Microbiology Date/Time Source Procedure Growth Status 03/23/17 16:00 Sputum Endotracheal Gram Stain - Final Complete 03/23/17 16:00 Sputum Culture - Final Pseudomonas Aeruginosa Complete Imaging Last Impressions Chest X-Ray 03/21/17 6860 Signed Impressions: Service Date/Time: Tuesday, March 21, 2017 08:25 - CONCLUSION: 1. Mild increased perihilar interstitial markings consistent with mild pulmonary vascular congestion versus pneumonia. Clinical correlation is recommended. 2. Cardiomegaly. Peter Nolan MD Physical Exam GENERAL: Awake, no interaction, not in respiratory distress. On T piece SKIN: Warm and dry. No generalized rash, no ecchymoses and no evidence of embolic lesions. HEAD: Atraumatic. Normocephalic. EYES: [place] conjunctiva. No petechia or hemorrhage. Pupils equal, round and reactive to light. No scleral icterus. No injection or drainage. EARS, NOSE AND THROAT: Nose without bleeding or purulent nasal discharge. Mucous membranes moist. NECK: Tracheostomy in plce with thick juarez secretions CARDIOVASCULAR: Regular rate and rhythm. Tachycardic No murmurs, rubs or gallops heard RESPIRATORY: Clear to auscultation. Breath sounds equal bilaterally. No rales , wheezing or rhonchi. Decreased breath sounds at the bases ABDOMEN: Soft, nondistended, no reaction to palpation.. Bowel sounds present and normoactive. PEG site looks okay. EXTREMITIES: No clubbing, cyanosis, or edema. Both feet are dorsiflexed. Well perfused and warm. NEUROLOGICAL: No interaction. Extremities are spastic. PSYCHIATRIC: Unable to assess LINE: No evidence of infection : O[place] catheter in place, urine looks clear Assessment & Plan Remarks IMPRESSION Sepsis, recurrent, very suspicious for pulmonary, ?plugging - CXR with some new perihilar infiltrates, repeatCXR now normal - both fever and leukocytosis present on admission are now resolved Recent Rx for PSAE PNA Hx MDRO infections with MRSA and ESBL+ Chronic vegetative state from anoxic injury Chronic respiratory failure, S/P trach Recent Rx for Strep viridans bacteremia from midline Hx DVT both UE RECOMMENDATION Continue Cefepime Stop Flagyl Aerosol Tobra Give at least 7 days Abx Follow temps Monitor progress D/W Michelle Anderson MD Mar 26, 2017 10:32
[2017-03-26] MEDS: RESP: TOBRAMYCIN SULFATE 80 MG/2 ML NEB NEB SCH ×2 (13:03→20:35)
[2017-03-26] MEDS ORDERED: PHARMACY ORDERED LAB ONE (13:45)
[2017-03-27] VITALS (14 sets, daily range): BP systolic 101–126; BP diastolic 54–78; PULSE 67–97; RESP 18–23; TEMP 99–99.9; O2SAT 90–100
[2017-03-27] MEDS: PROPRANOLOL HCL 20 MG TAB PO SCH ×6 (00:43→23:57)
[2017-03-27] MEDS: RESP: ALBUTEROL 2.5 MG/IPRATROPIUM 0.5 MG NEB (SCH) INH ×3 (03:46→11:00)
[2017-03-27] MEDS: CHLORHEXIDINE GLUCONATE 2 % 1 PACK (2 CLOTHS) TOP SCH (04:00)
[2017-03-27 05:05] LABS: HEMATOCRIT 35.8 % (39.0-51.0); MEAN CELL VOLUME 93.3 FL (80.0-100.0); MEAN CORPUSCULAR HEMOGLOBIN 30.6 PG (27.0-34.0); MEAN CORPUSCULAR HGB CONC 32.8 % (32.0-36.0); PLATELET COUNT 209 TH/MM3 (150-450); RED BLOOD COUNT 3.84 MIL/MM3 (4.50-5.90); RED CELL DISTRIBUTION WIDTH 12.9 % (11.6-17.2); REVIEW FLAG FINAL; WHITE BLOOD COUNT 5.6 TH/MM3 (4.0-11.0)
[2017-03-27 05:34] LABS: ALT (GPT) 50 U/L (12-78); ANION GAP 6 MEQ/L (5-15); AST (GOT) 25 U/L (15-37); BLOOD UREA NITROGEN 5 MG/DL (7-18); CHLORIDE 107 MEQ/L (98-107); GLOMERULAR FILTRATION RATE 199 ML/MIN (>89); MAGNESIUM 2.2 MG/DL (1.5-2.5); POTASSIUM 3.7 MEQ/L (3.5-5.1); SODIUM (NA) 141 MEQ/L (136-145)
[2017-03-27 05:37] LABS: ALKALINE PHOSPHATASE 76 U/L (45-117); TOTAL BILIRUBIN ADULT 0.2 MG/DL (0.2-1.0)
[2017-03-27] MEDS: CEFEPIME INJ 2,000 MG in SODIUM CHLORIDE 0.9% INJ 100 ML IV SCH ×3 (05:59→21:10)
[2017-03-27] MEDS: LORazepam 1 MG TAB PO SCH ×3 (06:00→21:11)
[2017-03-27] MEDS: hydrALAZINE HCL 50 MG TAB PO SCH ×3 (06:00→21:11)
[2017-03-27] MEDS: RESP: TOBRAMYCIN SULFATE 80 MG/2 ML NEB NEB SCH ×2 (07:38→22:08)
[2017-03-27] MEDS: levETIRAcetam 500 MG TAB G-TUBE SCH ×2 (08:14→21:11)
[2017-03-27] MEDS: DOCUSATE SODIUM 50 MG/SENNA 8.6 MG TAB PO SCH ×2 (08:14→21:00)
[2017-03-27] MEDS: LORATADINE 10 MG TAB G-TUBE SCH (08:14)
[2017-03-27] MEDS: BACLOFEN 20 MG TAB G-TUBE SCH ×3 (08:14→16:12)
[2017-03-27] MEDS: APIXABAN 5 MG TABLET G-TUBE SCH ×2 (08:14→21:11)
[2017-03-27] MEDS: FAMOTIDINE 20 MG TAB G-TUBE SCH (08:14)
--- NOTE | 2017-03-27 08:41 | HHI.PR ---
Subjective Remarks Pt non verbal. Trach in place. Objective Vitals Vital Signs Date Time Temp Pulse Resp B/P (MAP) Pulse Ox O2 Delivery O2 Flow Rate FiO2 03/27/17 07:20 100 T-piece 28 03/27/17 06:00 75 03/27/17 04:00 99.1 73 21 112/69 (83) 100 03/27/17 04:00 73 03/27/17 02:00 67 03/27/17 00:00 97 03/27/17 00:00 99.3 97 23 114/63 (80) 100 03/26/17 22:00 100 03/26/17 20:34 100 T-piece 5.00 28 03/26/17 20:00 99.3 70 15 108/54 (72) 99 03/26/17 20:00 70 03/26/17 16:00 68 03/26/17 16:00 99.7 68 14 111/58 (75) 100 03/26/17 14:00 76 03/26/17 12:00 99.1 72 18 89/54 (66) 100 03/26/17 12:00 72 03/26/17 10:00 70 I/O 03/26/17 03/26/17 03/26/17 03/27/17 03/27/17 03/27/17 07:00 15:00 23:00 07:00 15:00 23:00 Intake Total 489 ml 562.5 ml 545 ml 591 ml Output Total 900 ml 750 ml 1600 ml Balance -411 ml 562.5 ml -205 ml -1009 ml Intake Oral 0 ml IV Total 562.5 ml 100 ml Tube Feeding 489 ml 445 ml 591 ml Output Urine Total 900 ml 750 ml 1600 ml # Bowel Movements 1 Result Diagram: 03/27/17 0340 03/27/17 0340 Imaging Last Impressions Chest X-Ray 03/25/17 0000 Signed Impressions: Service Date/Time: Saturday, March 25, 2017 04:26 - CONCLUSION: 1. Mild cardiomegaly. 2. Clear lungs. Zachariah Echeverria Jr., MD Objective Remarks GENERAL: non verbal. SKIN: Warm and dry. sweating HEAD: Atraumatic. Normocephalic. EYES: eyes closed. ENT: No nasal bleeding or discharge. Mucous membranes pink and moist. NECK: Trachea midline. No JVD. TRACHEOSTOMY IN PLACE CARDIOVASCULAR: Regular rate and rhythm, no murmurs RESPIRATORY: upper airway noise, no crackles GASTROINTESTINAL: Abdomen soft, non-tender, nondistended. PEG in place. MUSCULOSKELETAL: Extremities without edema. No obvious deformities. contractures in upper and lower ext noted NEUROLOGICAL: non verbal. A/P Assessment and Plan Assessment: 31yr with history of severe traumatic brain injury with encephalopathy who presents with fever and tachycardia. Sinus tachycardia - likely secondary to agitation - schedule ativan 1mg po TID - propranolol 20mg po q6h scheduled and metoprolol as needed - prn ativan iv for breakthrough agitation/tachycardia. Fevers - likely central at this point - procalcitonin 0.24 - on cefepime, blood cx neg to date. ID following and recommends 7 days of IV Abx for now. - afebrile thus far. HTN- HOME MEDS DYSPHAGIA -PEG tube in place. on tube feeds PERSISTENT VEGETATIVE STATE AFTER TBI HX MDRO HYPOKALEMIA: monitor. Stable at this time. continue home meds. Discharge Planning Per ID will need 7 days total IV abx. Currently on day#6/7. Awaiting final recs. off flagyl per their recs Angella Patel MD Mar 27, 2017 08:40
--- NOTE | 2017-03-27 13:45 | HHI.IDPN ---
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 Notes reviewed Temps ok He is on T-piece C/S PSAE BP ok, not on pressors Antibiotics cefepime Past Medical History Reviewed Allergies: Coded Allergies: haloperidol (Unverified Adverse Reaction, Severe, Seizures, 02/21/17) Objective . Vital Signs Date Time Temp Pulse Resp B/P (MAP) Pulse Ox O2 Delivery O2 Flow Rate FiO2 03/27/17 07:20 100 T-piece 28 03/27/17 06:00 75 03/27/17 04:00 99.1 73 21 112/69 (83) 100 03/27/17 04:00 73 03/27/17 02:00 67 03/27/17 00:00 97 03/27/17 00:00 99.3 97 23 114/63 (80) 100 03/26/17 22:00 100 03/26/17 20:34 100 T-piece 5.00 28 03/26/17 20:00 99.3 70 15 108/54 (72) 99 03/26/17 20:00 70 03/26/17 16:00 68 03/26/17 16:00 99.7 68 14 111/58 (75) 100 03/26/17 14:00 76 . Laboratory Tests Test 03/26/17 03:17 03/27/17 03:40 White Blood Count 4.4 TH/MM3 5.6 TH/MM3 Red Blood Count 3.31 MIL/MM3 3.84 MIL/MM3 Hemoglobin 10.5 GM/DL 11.7 GM/DL Hematocrit 30.4 % 35.8 % Mean Corpuscular Volume 91.7 FL 93.3 FL Mean Corpuscular Hemoglobin 31.7 PG 30.6 PG Mean Corpuscular Hemoglobin Concent 34.5 % 32.8 % Red Cell Distribution Width 12.6 % 12.9 % Platelet Count 171 TH/MM3 209 TH/MM3 Mean Platelet Volume 10.9 FL 10.4 FL Neutrophils (%) (Auto) 45.2 % Lymphocytes (%) (Auto) 33.1 % Monocytes (%) (Auto) 17.3 % Eosinophils (%) (Auto) 3.8 % Basophils (%) (Auto) 0.6 % Neutrophils # (Auto) 2.0 TH/MM3 Lymphocytes # (Auto) 1.4 TH/MM3 Monocytes # (Auto) 0.8 TH/MM3 Eosinophils # (Auto) 0.2 TH/MM3 Basophils # (Auto) 0.0 TH/MM3 CBC Comment DIFF FINAL Differential Comment Laboratory Tests Test 03/26/17 03:17 03/27/17 03:40 Blood Urea Nitrogen 4 MG/DL 5 MG/DL Creatinine 0.59 MG/DL 0.58 MG/DL Random Glucose 96 MG/DL 93 MG/DL Total Protein 6.3 GM/DL 6.9 GM/DL Albumin 2.7 GM/DL 2.9 GM/DL Calcium Level 8.1 MG/DL 8.5 MG/DL Phosphorus Level 2.4 MG/DL 2.9 MG/DL Magnesium Level 1.9 MG/DL 2.2 MG/DL Alkaline Phosphatase 69 U/L 76 U/L Aspartate Amino Transf (AST/SGOT) 22 U/L 25 U/L Alanine Aminotransferase (ALT/SGPT) 40 U/L 50 U/L Total Bilirubin 0.2 MG/DL 0.2 MG/DL Sodium Level 141 MEQ/L 141 MEQ/L Potassium Level 3.3 MEQ/L 3.7 MEQ/L Chloride Level 107 MEQ/L 107 MEQ/L Carbon Dioxide Level 27.2 MEQ/L 28.0 MEQ/L Anion Gap 7 MEQ/L 6 MEQ/L Estimat Glomerular Filtration Rate 195 ML/MIN 199 ML/MIN Imaging Last Impressions Chest X-Ray 03/21/17 0755 Signed Impressions: Service Date/Time: Tuesday, March 21, 2017 08:25 - CONCLUSION: 1. Mild increased perihilar interstitial markings consistent with mild pulmonary vascular congestion versus pneumonia. Clinical correlation is recommended. 2. Cardiomegaly. Peter Nolan MD Physical Exam GENERAL: Awake, no interaction, NAD. On T piece SKIN: Warm and dry. No generalized rash, no ecchymoses and no evidence of embolic lesions. HEAD: Atraumatic. Normocephalic. EYES: [place] conjunctiva. No petechia or hemorrhage. No scleral icterus. No injection or drainage. EARS, NOSE AND THROAT: Nose without bleeding or purulent nasal discharge. Mucous membranes moist. NECK: Tracheostomy in plce with thick [place] secretions CARDIOVASCULAR: Regular rate and rhythm. Tachycardic No murmurs, rubs or gallops heard RESPIRATORY: Clear to auscultation. Breath sounds equal bilaterally. No rales , wheezing or rhonchi. Decreased breath sounds at the bases ABDOMEN: Soft, nondistended, no reaction to palpation.. Bowel sounds present and normoactive. PEG site looks okay. EXTREMITIES: No clubbing, cyanosis, or edema. Both feet are dorsiflexed. Well perfused and warm. NEUROLOGICAL: No interaction. Extremities are spastic. PSYCHIATRIC: Unable to assess LINE: No evidence of infection : Ospina catheter in place, urine looks clear Assessment & Plan Remarks IMPRESSION Sepsis, recurrent, very suspicious for pulmonary, ?plugging - CXR with some new perihilar infiltrates, repeatCXR now normal - both fever and leukocytosis present on admission are now resolved Recent Rx for PSAE PNA Hx MDRO infections with MRSA and ESBL+ Chronic vegetative state from anoxic injury Chronic respiratory failure, S/P trach Recent Rx for Strep viridans bacteremia from midline Hx DVT both UE RECOMMENDATION Continue Cefepime Continue aerosol Tobra Give at least 7 days Abx - end date ordered in [employer] Monitor progress Clinically stable from ID standpoint Michelle Reynolds MD Mar 27, 2017 13:45
[2017-03-27] MEDS: RESP: ALBUTEROL 2.5 MG/IPRATROPIUM 0.5 MG NEB (PRN) INH (21:51)
[2017-03-28] VITALS (13 sets, daily range): BP systolic 83–131; BP diastolic 49–81; PULSE 53–92; RESP 18–21; TEMP 99–100.5; O2SAT 91–100
[2017-03-28] MEDS: CEFEPIME INJ 2,000 MG in SODIUM CHLORIDE 0.9% INJ 100 ML IV SCH ×3 (03:52→20:58)
[2017-03-28] MEDS: CHLORHEXIDINE GLUCONATE 2 % 1 PACK (2 CLOTHS) TOP SCH (03:52)
[2017-03-28] MEDS: PROPRANOLOL HCL 20 MG TAB PO SCH ×3 (05:30→18:00)
[2017-03-28] MEDS: LORazepam 1 MG TAB PO SCH ×3 (05:30→20:58)
[2017-03-28] MEDS: hydrALAZINE HCL 50 MG TAB PO SCH ×3 (05:30→20:58)
[2017-03-28 05:36] LABS: AUTOMATED NEUTROPHIL # 3.2 TH/MM3 (1.8-7.7); BASOPHIL % 0.5 % (0.0-2.0); EOSINOPHIL # 0.2 TH/MM3 (0-0.4); EOSINOPHIL % 3.2 % (0.0-4.0); HEMATOCRIT 34.9 % (39.0-51.0); HEMO FLAGS DIFF FINAL; LYMPH % 27.9 % (9.0-44.0); LYMPHOCYTE # 1.6 TH/MM3 (1.0-4.8); MEAN CELL VOLUME 93.3 FL (80.0-100.0); MEAN CORPUSCULAR HEMOGLOBIN 30.7 PG (27.0-34.0); MONO % 12.6 % (0.0-8.0); NEUT % 55.8 % (16.0-70.0); PLATELET COUNT 221 TH/MM3 (150-450); RED BLOOD COUNT 3.74 MIL/MM3 (4.50-5.90); RED CELL DISTRIBUTION WIDTH 13.2 % (11.6-17.2); WHITE BLOOD COUNT 5.7 TH/MM3 (4.0-11.0)
[2017-03-28 05:55] LABS: BICARBONATE 26.9 MEQ/L (21.0-32.0); POTASSIUM 3.4 MEQ/L (3.5-5.1)
[2017-03-28] MEDS: RESP: TOBRAMYCIN SULFATE 80 MG/2 ML NEB NEB SCH ×2 (07:54→22:00)
[2017-03-28] MEDS: DOCUSATE SODIUM 50 MG/SENNA 8.6 MG TAB PO SCH ×2 (09:00→20:58)
--- NOTE | 2017-03-28 09:07 | HHI.IDPN ---
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 Notes reviewed Has low grade temps Has a lot of secretions from his trach and orally He is on T-piece C/S PSAE BP ok, not on pressors Not tachycardic Sats high 80s Antibiotics cefepime Lines PIV Past Medical History Reviewed Allergies: Coded Allergies: haloperidol (Unverified Adverse Reaction, Severe, Seizures, 02/21/17) Objective . Vital Signs Date Time Temp Pulse Resp B/P (MAP) Pulse Ox O2 Delivery O2 Flow Rate FiO2 03/28/17 07:56 98 T-piece 28 03/28/17 06:00 89 03/28/17 04:00 73 03/28/17 04:00 99.1 85 18 119/61 (80) 91 03/28/17 02:00 76 03/28/17 00:00 83 03/28/17 00:00 100.5 83 18 83/49 (60) 100 03/27/17 22:08 98 T-piece 5.00 28 03/27/17 22:00 84 03/27/17 20:00 99.9 71 19 103/54 (70) 90 03/27/17 20:00 71 03/27/17 18:00 76 03/27/17 16:00 76 03/27/17 16:00 99.0 76 22 101/58 (72) 100 03/27/17 14:00 73 03/27/17 12:00 99.4 91 18 126/78 (94) 100 03/27/17 12:00 91 03/27/17 10:00 80 . Laboratory Tests Test 03/27/17 03:40 03/28/17 04:01 White Blood Count 5.6 TH/MM3 5.7 TH/MM3 Red Blood Count 3.84 MIL/MM3 3.74 MIL/MM3 Hemoglobin 11.7 GM/DL 11.5 GM/DL Hematocrit 35.8 % 34.9 % Mean Corpuscular Volume 93.3 FL 93.3 FL Mean Corpuscular Hemoglobin 30.6 PG 30.7 PG Mean Corpuscular Hemoglobin Concent 32.8 % 33.0 % Red Cell Distribution Width 12.9 % 13.2 % Platelet Count 209 TH/MM3 221 TH/MM3 Mean Platelet Volume 10.4 FL 10.3 FL Neutrophils (%) (Auto) 55.8 % Lymphocytes (%) (Auto) 27.9 % Monocytes (%) (Auto) 12.6 % Eosinophils (%) (Auto) 3.2 % Basophils (%) (Auto) 0.5 % Neutrophils # (Auto) 3.2 TH/MM3 Lymphocytes # (Auto) 1.6 TH/MM3 Monocytes # (Auto) 0.7 TH/MM3 Eosinophils # (Auto) 0.2 TH/MM3 Basophils # (Auto) 0.0 TH/MM3 CBC Comment DIFF FINAL Differential Comment Laboratory Tests Test 03/27/17 03:40 03/28/17 04:01 Blood Urea Nitrogen 5 MG/DL 8 MG/DL Creatinine 0.58 MG/DL 0.65 MG/DL Random Glucose 93 MG/DL 110 MG/DL Total Protein 6.9 GM/DL Albumin 2.9 GM/DL Calcium Level 8.5 MG/DL 8.7 MG/DL Phosphorus Level 2.9 MG/DL Magnesium Level 2.2 MG/DL Alkaline Phosphatase 76 U/L Aspartate Amino Transf (AST/SGOT) 25 U/L Alanine Aminotransferase (ALT/SGPT) 50 U/L Total Bilirubin 0.2 MG/DL Sodium Level 141 MEQ/L 139 MEQ/L Potassium Level 3.7 MEQ/L 3.4 MEQ/L Chloride Level 107 MEQ/L 104 MEQ/L Carbon Dioxide Level 28.0 MEQ/L 26.9 MEQ/L Anion Gap 6 MEQ/L 8 MEQ/L Estimat Glomerular Filtration Rate 199 ML/MIN 175 ML/MIN Imaging Chest X-Ray 03/25/17 0000 Signed Impressions: Service Date/Time: Saturday, March 25, 2017 04:26 - CONCLUSION: 1. Mild cardiomegaly. 2. Clear lungs. Zachariah Echeverria Jr., MD Chest X-Ray 03/21/17 0755 Signed Impressions: Service Date/Time: Tuesday, March 21, 2017 08:25 - CONCLUSION: 1. Mild increased perihilar interstitial markings consistent with mild pulmonary vascular congestion versus pneumonia. Clinical correlation is recommended. 2. Cardiomegaly. Peter Nolan MD Physical Exam GENERAL: No interaction, NAD. On T piece SKIN: Warm and dry. No generalized rash EYES: [place] conjunctiva. No petechia or hemorrhage. No scleral icterus. No injection or drainage. EARS, NOSE AND THROAT: Nose without bleeding or purulent nasal discharge. Mucous membranes moist. Drooling NECK: Tracheostomy in place with a lot of white to very light yellow secretions CARDIOVASCULAR: Regular rate and rhythm. Tachycardic No murmurs, rubs or gallops heard RESPIRATORY: Clear to auscultation. Breath sounds equal bilaterally. No rales , wheezing or rhonchi. Decreased breath sounds at the bases ABDOMEN: Soft, nondistended, no reaction to palpation.. Bowel sounds present and normoactive. PEG site looks okay. EXTREMITIES: No clubbing, cyanosis, or edema. Both feet are dorsiflexed. Well perfused and warm. NEUROLOGICAL: No interaction. Extremities are spastic. PSYCHIATRIC: Unable to assess LINE: No evidence of infection : Condom catheter in place, urine looks clear Assessment & Plan Remarks IMPRESSION Sepsis, recurrent, very suspicious for pulmonary, ?plugging - CXR with some new perihilar infiltrates, repeatCXR now normal - both fever and leukocytosis present on admission are now resolved Low grade temps, likely pulmonary, has a lot of secretions, plugging, atelectasis Recent Rx for PSAE PNA Hx MDRO infections with MRSA and ESBL+ Chronic vegetative state from anoxic injury Chronic respiratory failure, S/P trach Recent Rx for Strep viridans bacteremia from midline Hx DVT both UE RECOMMENDATION Continue Cefepime - to finish today Continue aerosol Tobra - to finish 04/02 Give at least 7 days Abx - end date ordered in [employer] Monitor progress Monitor temps ?pulmonary input - if there is any other management to assist with his secretions, plugging atelectasis - he has likely low lung volumes due to underlying neuro conditions, plus additional problem with secretions Michelle Reynolds MD Mar 28, 2017 09:07
--- NOTE | 2017-03-28 09:23 | PQ ---
Physician Query Response Document PATIENT: NEEMA MANSFIELD : 1985 ADMIT DATE: 03/21/2017 12:45 PM DISCH DATE: RESPONDING PROVIDER #: JOHANNY QUERY TEXT: Clarification of Clinical Diagnostic Findings Please clarify documentation or clinical relevance for the clinical / diagnostic findings: 1) PNEUMONIA CURRENT AND TREATED 2) NO PNEUMONIA 3) OTHER, PLEASE EXPLAIN PLEASE CALL [facility] @ [phone] FOR ASSISTANCE The patient's Clinical Indicators include: PER ID CONSULT: Sepsis, recurrent, very suspicious for pulmonary, ?plugging - CXR with some new perihilar infiltrates Recent Rx for PSAE PNA Agree with current Abx : Vanco, Cefepime and Flagyl Follow new C/S 03/23/17: SPUTUM CULTURE SHOWS PSEUDOMONAS AERUGINOSA Query created by: Elenita Campbell on 03/26/2017 3:56 PM RESPONSE TEXT: Pneumonia being treated with chronic tracheostomy Possible aspiration Electronically signed by: Hudson Luz 03/28/2017 9:19 AM
[2017-03-28] MEDS: BACLOFEN 20 MG TAB G-TUBE SCH ×3 (09:31→18:13)
[2017-03-28] MEDS: LORATADINE 10 MG TAB G-TUBE SCH (09:32)
[2017-03-28] MEDS: FAMOTIDINE 20 MG TAB G-TUBE SCH (09:32)
[2017-03-28] MEDS: levETIRAcetam 500 MG TAB G-TUBE SCH ×2 (09:32→21:21)
[2017-03-28] MEDS: APIXABAN 5 MG TABLET G-TUBE SCH ×2 (09:33→20:59)
--- NOTE | 2017-03-28 12:48 | HHI.PR ---
Subjective Remarks This is a 31yM with history of severe traumatic brain injury and severe neurologic deficit in persistent vegetative state who was recently admitted and discharged from our facility after a 3 week hospital stay for pseudomonas pneumonia. He was discharged yesterday to his SNF and re-presents today with fever and tachycardia. per his mother, he gets tachycardic any time he gets agitated. He was running low-grade temperatures up to 100.3F at our facility, but today is > 102 F. He has no change in sputum production, oxygen requirement , or any other symptoms. His wbc is elevated, but near baseline for him over the last few weeks. Procalcitonin level is 0.24 suggestive against an acute bacterial infection. Patient is persistently chronically encephalopathic and can answer no additional information. Mother is concerned that he "just doesn't look right" but cannot identify any additional changes since he left yesterday. 03/22: no changes. HR came down appropriately. non-toxic appearing. fevers are lower, but persistent, now about where they were when he left the hospital last week. Talking with his mother, she is still concerned about the fevers and feels like he is not completely back to baseline. will consider keeping inpatient another day, although on my physical exam, he is stable and at baseline from prior exams. 03-23 PATIENT TRANSFERRED TO OUR SERVICE TODAY REMAINS NON VERBAL SOME FEVERS HAS BEEN SEEN BY ID SYDNEE RN CHART REVIEWED 03-24 NO COMPLAINTS REMAINS ON TRACH BORDERLINE FEVERS DW RN 03-25 HAS HAD BORDERLINE BLOOD PRESSURE ISSUES DW RN REMAINS NONVERBAL HAS REMAINED AFEBRILE 03-26 POTASSIUM IS LOW WILL REPLACE BY PROTOCOLS AWAIT ID CLEARANCE NONVERBAL 03-27 unchanged 03-28 FINISH ANTIBIOTICS AND HOPEFULLY TO SNF IN NEXT 24 TO 48 HOURS SYDNEE RN Objective Vitals Vital Signs Date Time Temp Pulse Resp B/P (MAP) Pulse Ox O2 Delivery O2 Flow Rate FiO2 03/28/17 12:00 99.3 75 18 105/61 (76) 100 03/28/17 12:00 75 03/28/17 10:00 83 03/28/17 08:00 99.4 92 21 131/81 (98) 100 03/28/17 08:00 92 03/28/17 07:56 98 T-piece 28 03/28/17 06:00 89 03/28/17 04:00 73 03/28/17 04:00 99.1 85 18 119/61 (80) 91 03/28/17 02:00 76 03/28/17 00:00 83 03/28/17 00:00 100.5 83 18 83/49 (60) 100 03/27/17 22:08 98 T-piece 5.00 28 03/27/17 22:00 84 03/27/17 20:00 99.9 71 19 103/54 (70) 90 03/27/17 20:00 71 03/27/17 18:00 76 03/27/17 16:00 76 03/27/17 16:00 99.0 76 22 101/58 (72) 100 03/27/17 14:00 73 I/O 03/27/17 03/27/17 03/27/17 03/28/17 03/28/17 03/28/17 07:00 15:00 23:00 07:00 15:00 23:00 Intake Total 591 ml 620 ml 809 ml Output Total 1600 ml 500 ml 275 ml Balance -1009 ml 120 ml 534 ml Intake Oral 0 ml IV Total 200 ml 100 ml Tube Feeding 591 ml 420 ml 609 ml Tube Irrigant 100 ml Output Urine Total 1600 ml 500 ml 275 ml # Bowel Movements 1 1 Result Diagram: 03/28/17 0401 03/28/17 0401 Other Results Laboratory Tests Test 03/26/17 03:17 03/27/17 03:40 03/28/17 04:01 White Blood Count 4.4 TH/MM3 5.6 TH/MM3 5.7 TH/MM3 Red Blood Count 3.31 MIL/MM3 3.84 MIL/MM3 3.74 MIL/MM3 Hemoglobin 10.5 GM/DL 11.7 GM/DL 11.5 GM/DL Hematocrit 30.4 % 35.8 % 34.9 % Mean Corpuscular Volume 91.7 FL 93.3 FL 93.3 FL Mean Corpuscular Hemoglobin 31.7 PG 30.6 PG 30.7 PG Mean Corpuscular Hemoglobin Concent 34.5 % 32.8 % 33.0 % Red Cell Distribution Width 12.6 % 12.9 % 13.2 % Platelet Count 171 TH/MM3 209 TH/MM3 221 TH/MM3 Mean Platelet Volume 10.9 FL 10.4 FL 10.3 FL Neutrophils (%) (Auto) 45.2 % 55.8 % Lymphocytes (%) (Auto) 33.1 % 27.9 % Monocytes (%) (Auto) 17.3 % 12.6 % Eosinophils (%) (Auto) 3.8 % 3.2 % Basophils (%) (Auto) 0.6 % 0.5 % Neutrophils # (Auto) 2.0 TH/MM3 3.2 TH/MM3 Lymphocytes # (Auto) 1.4 TH/MM3 1.6 TH/MM3 Monocytes # (Auto) 0.8 TH/MM3 0.7 TH/MM3 Eosinophils # (Auto) 0.2 TH/MM3 0.2 TH/MM3 Basophils # (Auto) 0.0 TH/MM3 0.0 TH/MM3 CBC Comment DIFF FINAL DIFF FINAL Differential Comment Blood Urea Nitrogen 4 MG/DL 5 MG/DL 8 MG/DL Creatinine 0.59 MG/DL 0.58 MG/DL 0.65 MG/DL Random Glucose 96 MG/DL 93 MG/DL 110 MG/DL Total Protein 6.3 GM/DL 6.9 GM/DL Albumin 2.7 GM/DL 2.9 GM/DL Calcium Level 8.1 MG/DL 8.5 MG/DL 8.7 MG/DL Phosphorus Level 2.4 MG/DL 2.9 MG/DL Magnesium Level 1.9 MG/DL 2.2 MG/DL Alkaline Phosphatase 69 U/L 76 U/L Aspartate Amino Transf (AST/SGOT) 22 U/L 25 U/L Alanine Aminotransferase (ALT/SGPT) 40 U/L 50 U/L Total Bilirubin 0.2 MG/DL 0.2 MG/DL Sodium Level 141 MEQ/L 141 MEQ/L 139 MEQ/L Potassium Level 3.3 MEQ/L 3.7 MEQ/L 3.4 MEQ/L Chloride Level 107 MEQ/L 107 MEQ/L 104 MEQ/L Carbon Dioxide Level 27.2 MEQ/L 28.0 MEQ/L 26.9 MEQ/L Anion Gap 7 MEQ/L 6 MEQ/L 8 MEQ/L Estimat Glomerular Filtration Rate 195 ML/MIN 199 ML/MIN 175 ML/MIN Imaging Last Impressions Chest X-Ray 03/25/17 0000 Signed Impressions: Service Date/Time: Saturday, March 25, 2017 04:26 - CONCLUSION: 1. Mild cardiomegaly. 2. Clear lungs. Zachariah Echeverria Jr., MD Objective Remarks GENERAL: NOT AWAKE OR ALERT-- FOLLOWS NO COMMANDS SKIN: Warm and dry. SWEATING HEAD: Atraumatic. Normocephalic. EYES: Pupils equal and round. No scleral icterus. No injection or drainage. ENT: No nasal bleeding or discharge. Mucous membranes pink and moist. NECK: Trachea midline. No JVD. TRACHEOSTOMY IN PLACE CARDIOVASCULAR: Regular rate and rhythm. S1, S2 NO S3 OR S4 NO HEAVE OR THRILL RESPIRATORY: No accessory muscle use. Clear to auscultation. Breath sounds equal bilaterally. GASTROINTESTINAL: Abdomen soft, non-tender, nondistended. Hepatic and splenic margins not palpable. PEG MUSCULOSKELETAL: Extremities without clubbing, cyanosis, or edema. No obvious deformities. CONTRACTURES UPPER AND LOWER EXTREMITIES NEUROLOGICAL: Awake and NOT alert. No obvious cranial nerve deficits. PERSISTENT VEGETATIVE STATE- NOT ABLE TO ASSESS PSYCHIATRIC: INAppropriate mood and affect; insight and judgment ABnormal. PERSISTENT VEGETATIVE STATE Procedures NONE Medications and IVs Current Medications Acetaminophen (Tylenol Supp) 650 mg ONCE ONCE RECTAL Last administered on 03/21 09:21; Start 03/21/17 at 08:00; Stop 03/21/17 at 08:01; Status DC Sodium Chloride 1,000 ml @ 1,000 mls/hr Q1H ONCE IV Last administered on 09:20; Start 03/21/17 at 07:55; Stop 03/21/17 at 08:54; Status DC Sodium Chloride 1,000 ml @ 1,000 mls/hr Q1H ONCE IV Last administered on 09:21; Start 03/21/17 at 07:55; Stop 03/21/17 at 08:54; Status DC Sodium Chloride 100 ml @ 1,000 mls/hr Q6M ONCE IV Last administered on 09:21; Start 03/21/17 at 07:55; Stop 03/21/17 at 08:00; Status DC Cefepime HCl 2000 mg/Sodium Chloride 100 ml @ 200 mls/hr ONCE ONCE IV Last administered on 03/21/17 09:52; Start 03/21/17 at 08:00; Stop 03/21/17 at 08:29 ; Status DC Azithromycin 500 mg/Sodium Chloride 250 ml @ 250 mls/hr ONCE ONCE IV Last administered on 03/21/17 09:21; Start 03/21/17 at 08:00; Stop 03/21/17 at 08:59 ; Status DC Lorazepam (Ativan Inj) 1 mg ONCE ONCE IV PUSH Last administered on 03/21/17 11:54; Start 03/21/17 at 10:15; Stop 03/21/17 at 10:16; Status DC Albuterol/ Ipratropium (Duoneb Neb) 1 ampule ONCE ONCE NEB Last administered on 03/21/17 11:49; Start 03/21/17 at 11:45; Stop 03/21/17 at 11:46; Status DC Ketorolac Tromethamine (Toradol Inj) 30 mg ONCE ONCE IV PUSH Last administered on 03/21/17 11:55; Start 03/21/17 at 11:45; Stop 03/21/17 at 11:46 ; Status DC Lorazepam (Ativan Inj) 1 mg ONCE ONCE IV PUSH Last administered on 03/21/17 13:37; Start 03/21/17 at 12:15; Stop 03/21/17 at 12:16; Status DC Propranolol HCl (Inderal) 10 mg Q8HR PO Last administered on 03/21/17 21:25; Start 03/21/17 at 14:00; Stop 03/21/17 at 22:00; Status DC Magnesium Oxide (Mag-Ox) 800 mg UNSCH PRN PO For Magnesium 1.2 - 1.6 mg/dL; Start 03/21/17 at 12:45 Magnesium Sulfate 4 gm/Sodium Chloride 100 ml @ 50 mls/hr UNSCH PRN IV For Magnesium 0.9 - 1.1 mg/dL; Start 03/21/17 at 12:45 Magnesium Sulfate 2 gm/Sodium Chloride 100 ml @ 50 mls/hr UNSCH PRN IV For Magnesium 1.2 - 1.6 mg/dL; Start 03/21/17 at 12:45 Potassium Chloride 100 ml @ 50 mls/hr Q2H PRN IV For Potassium 2.8 - 3.2 mEq/ L Last administered on 03/24/17 16:03; Start 03/21/17 at 12:45 Potassium Chloride 100 ml @ 50 mls/hr Q2H PRN IV For Potassium 3.3 - 3.5 mEq/ L Last administered on 03/26/17 13:11; Start 03/21/17 at 12:45 Potassium Chloride 100 ml @ 50 mls/hr Q2H PRN IV For Potassium 2.8 - 3.2 mEq/L ; Start 03/21/17 at 12:45 Potassium Chloride 100 ml @ 25 mls/hr UNSCH PRN IV For Potassium 3.3 - 3.5 mEq /L; Start 03/21/17 at 12:45 Potassium Phosphate (K-Phos) 2,000 mg Q4H PRN PO For Phosphorus < 2.5 mg/dL; Start 03/21/17 at 12:45 Potassium Phosphate (K-Phos) 2,000 mg UNSCH PRN PO/TUBE SEE LABEL COMMENTS; Start 03/21/17 at 12:45 Potassium Phosphate 30 mmol/ Sodium Chloride 260 ml @ 42 mls/hr UNSCH PRN IV SEE LABEL COMMENTS; Start 03/21/17 at 12:45 Sodium Phosphate 30 mmol/Sodium Chloride 250 ml @ 42 mls/hr UNSCH PRN IV For Phosphorus < 2.5 mg/dL; Start 03/21/17 at 12:45 Albuterol/ Ipratropium (Duoneb Neb) 1 ampule Q6HR NEB INH Last administered on 03/23/17 04:02; Start 03/21/17 at 16:00; Stop 03/23/17 at 09:09; Status DC Albuterol/ Ipratropium (Duoneb Neb) 1 ampule Q2HR NEB PRN INH WHEEZING Last administered on 03/27/17 21:51; Start 03/21/17 at 12:45 Acetaminophen (Tylenol) 650 mg Q6H PRN PO PAIN 1-10 AND/OR FEVER >101F Last administered on 03/21/17 21:24; Start 03/21/17 at 12:45 Lorazepam (Ativan Inj) 1 mg Q1H PRN IV PUSH Agitation/Sedation Last administered on 03/22/17 15:37; Start 03/21/17 at 12:45 Miscellaneous Information 1 [id number] XX Last administered on 03/21/17 12:45; Start 03/21/17 at 12:45 Chlorhexidine Gluconate (Chlorhexidine 2% Cloth) Taper DAILY@04 TOP Last administered on 03/27/17 04:00; Start 03/22/17 at 04:00; Stop 03/18/18 at 03:59 Chlorhexidine Gluconate (Chlorhexidine 2% Cloth) 3 pack UNSCH PRN TOP HYGIENIC CARE; Start 03/21/17 at 12:45 Senna/Docusate Sodium (Sanam-Colace) 1 tab BID PO Last administered on 08:14; Start 03/21/17 at 21:00 Cefepime HCl 2000 mg/Sodium Chloride 100 ml @ 200 mls/hr Q8H IV Last administered on 03/28/17 12:35; Start 03/21/17 at 20:00; Stop 03/28/17 at 20:00 Vancomycin HCl 1250 mg/Sodium Chloride 262.5 ml @ 250 mls/hr ONCE ONCE IV ; Start 03/21/17 at 12:45; Stop 03/21/17 at 13:47; Status UNV Pharmacy Profile Note 0 ml @ 0 mls/hr UNSCH OTHER ; Start 03/21/17 at 12:45; Stop 03/26/17 at 08:34; Status DC Metronidazole 100 ml @ 100 mls/hr Q6H IV Last administered on 03/26/17 08:19 ; Start 03/21/17 at 15:00; Stop 03/26/17 at 09:44; Status DC Amlodipine Besylate (Norvasc) 10 mg DAILY PEG Last administered on 03/28/17 09 :32; Start 03/22/17 at 09:00 Apixaban (Eliquis) 5 mg BID G-TUBE Last administered on 03/28/17 09:33; Start 03/21/17 at 21:00 Baclofen (Lioresal) 20 mg TID G-TUBE Last administered on 03/28/17 12:36; Start 03/21/17 at 13:00 Clonidine (Catapres) 0.1 mg Q6H PRN PO SBP>160, DBP>90; Start 03/21/17 at 12:45 Famotidine (Pepcid) 40 mg DAILY G-TUBE Last administered on 03/28/17 09:32; Start 03/22/17 at 09:00 Hydralazine HCl (Apresoline) 50 mg Q8HR PO Last administered on 03/28/17 12:36 ; Start 03/21/17 at 14:00 Levetriacetam (Keppra) 1,000 mg BID G-TUBE Last administered on 03/28/17 09:32 ; Start 03/21/17 at 21:00 Non-Formulary Medication 5 mg DAILY G-TUBE ; Start 03/22/17 at 09:00; Status UNV Vancomycin HCl 1000 mg/Sodium Chloride 250 ml @ 250 mls/hr Q8H IV Last administered on 03/21/17 21:24; Start 03/21/17 at 14:00; Stop 03/21/17 at 23:59 ; Status DC Loratadine (Claritin) 5 mg DAILY G-TUBE Last administered on 03/28/17 09:32; Start 03/22/17 at 09:00 Vancomycin HCl 1000 mg/Sodium Chloride 250 ml @ 250 mls/hr Q8H IV Last administered on 03/23/17 06:35; Start 03/22/17 at 06:00; Stop 03/23/17 at 09:28 ; Status DC Propranolol HCl (Inderal) 20 mg Q6HR PO Last administered on 03/28/17 12:35; Start 03/22/17 at 00:00 Lorazepam (Ativan) 1 mg Q8HR PO Last administered on 03/28/17 12:36; Start at 19:45 Miscellaneous Information SPECIFIC LAB TO BE DRAWN:VANCOMY... ONCE ONCE .XX ; Start 03/22/17 at 13:45; Stop 03/22/17 at 13:51; Status DC Miscellaneous Information SPECIFIC LAB TO BE DRAWN:VANCOMY... ONCE ONCE .XX Last administered on 03/22/17 21:45; Start 03/22/17 at 21:45; Stop 03/22/17 at 21:46; Status DC Guaifenesin (Robitussin Liq) 100 mg Q4H PRN PO COUGH Last administered on 17:16; Start 03/23/17 at 10:00 Albuterol/ Ipratropium (Duoneb Neb) 1 ampule Q4HR NEB INH Last administered on 03/27/17 11:00; Start 03/23/17 at 12:00; Stop 03/27/17 at 11:59; Status DC Metoprolol Tartrate (Lopressor) 25 mg BID PRN PO HR>110; Start 03/23/17 at 10: 00 Vancomycin HCl 1250 mg/Sodium Chloride 262.5 ml @ 250 mls/hr Q8H IV Last administered on 03/26/17 06:05; Start 03/23/17 at 14:00; Stop 03/26/17 at 08:34 ; Status DC Miscellaneous Information SPECIFIC LAB TO BE DRAWN:VANCOMY... ONCE ONCE .XX ; Start 03/24/17 at 13:45; Stop 03/24/17 at 13:46; Status DC Potassium Chloride 100 ml @ 50 mls/hr Q2H PRN IV For Potassium 2.8 - 3.2 mEq/L ; Start 03/24/17 at 08:15 Potassium Chloride 100 ml @ 50 mls/hr Q2H PRN IV For Potassium 2.8 - 3.2 mEq/L ; Start 03/24/17 at 08:15 Potassium Bicarb/ Potassium Chloride (K-Lyte Cl Eff) 50 meq UNSCH PRN PO For Potassium 3.3 - 3.5 mEq/L Last administered on 03/28/17 06:13; Start 03/24/17 at 08:15 Potassium Chloride 100 ml @ 25 mls/hr UNSCH PRN IV For Potassium 3.3 - 3.5 mEq /L; Start 03/24/17 at 08:15 Potassium Chloride 100 ml @ 50 mls/hr Q2H PRN IV For Potassium 3.3 - 3.5 mEq/L ; Start 03/24/17 at 08:15 Magnesium Sulfate 4 gm/Sodium Chloride 100 ml @ 50 mls/hr UNSCH PRN IV For Magnesium 0.9 - 1.1 mg/dL; Start 03/24/17 at 08:15 Magnesium Oxide (Mag-Ox) 800 mg UNSCH PRN PO For Magnesium 1.2 - 1.6 mg/dL; Start 03/24/17 at 08:15 Magnesium Sulfate 2 gm/Sodium Chloride 100 ml @ 50 mls/hr UNSCH PRN IV For Magnesium 1.2 - 1.6 mg/dL; Start 03/24/17 at 08:15 Potassium Phosphate (K-Phos) 2,000 mg Q4H PRN PO For Phosphorus < 2.5 mg/dL; Start 03/24/17 at 08:15 Sodium Phosphate 30 mmol/Sodium Chloride 250 ml @ 42 mls/hr UNSCH PRN IV For Phosphorus < 2.5 mg/dL; Start 03/24/17 at 08:15 Potassium Phosphate (K-Phos) 2,000 mg UNSCH PRN PO/TUBE SEE LABEL COMMENTS; Start 03/24/17 at 08:15 Potassium Phosphate 30 mmol/ Sodium Chloride 260 ml @ 42 mls/hr UNSCH PRN IV SEE LABEL COMMENTS; Start 03/24/17 at 08:15 Miscellaneous Information SPECIFIC LAB TO BE ... ONCE ONCE .XX ; Start 03/26 at 13:45; Stop 03/26/17 at 13:46; Status Cancel Tobramycin Sulfate (Tobramycin Neb) 80 mg Q12HR NEB NEB Last administered on t 07:54; Start 03/26/17 at 09:45; Stop 04/02/17 at 09:44 Albuterol/ Ipratropium (Duoneb Neb) 1 ampule Q4HR NEB NEB ; Start 03/28/17 at 20:16 A/P Assessment and Plan Assessment: 31yM with history of severe traumatic brain injury with encephalopathy who presents with fever and tachycardia. Continue broad spectrum abx until cultures are negative x 48h. will keep inpatient an additional day at mother's request given her concern over fever curve. Sinus tachycardia - likely secondary to agitation - schedule ativan 1mg po TID - propranolol 20mg po q6h - prn ativan iv for breakthrough agitation/tachycardia. Fevers - likely central at this point - procalcitonin 0.24 - ONLY ON CEFEPIME NOW- MONITOR FOR FEVERS - send durbin cultures - ID consult - unlikely to be acute infectious etiology BORDERLINE FEVERS AXILLARY HYPERTENSION- HOME MEDS DYSPHAGIA -SP PEG CHRONIC PERSISTENT VEGETATIVE STATE AFTER TBI RESTART TUBE FEEDS HX MDRO HYPOKALEMIA REPLACE BY PROTOCOLS continue home meds. HOPEFULLY TO SNF IN NEXT 24 TO 48 HOURS Discharge Planning NEEDS ID CLEARANCE HOPEFULLY IN NEXT 24 TO 48 HOURS Hudson Luz DO Mar 28, 2017 12:48
[2017-03-28] MEDS: RESP: ALBUTEROL 2.5 MG/IPRATROPIUM 0.5 MG NEB (SCH) NEB ×2 (20:16→23:31)
[2017-03-28] MEDS: RESP: ALBUTEROL 2.5 MG/IPRATROPIUM 0.5 MG NEB (PRN) INH (21:57)
[2017-03-29] VITALS (12 sets, daily range): BP systolic 83–119; BP diastolic 49–63; PULSE 55–99; RESP 0–33; TEMP 98.6–98.9; O2SAT 92–100
[2017-03-29] MEDS: CHLORHEXIDINE GLUCONATE 2 % 1 PACK (2 CLOTHS) TOP SCH (01:38)
[2017-03-29] MEDS: RESP: ALBUTEROL 2.5 MG/IPRATROPIUM 0.5 MG NEB (SCH) NEB ×4 (04:02→15:24)
[2017-03-29 05:33] LABS: AUTOMATED NEUTROPHIL # 3.9 TH/MM3 (1.8-7.7); BASOPHIL % 0.5 % (0.0-2.0); EOSINOPHIL # 0.2 TH/MM3 (0-0.4); EOSINOPHIL % 2.3 % (0.0-4.0); HEMATOCRIT 33.5 % (39.0-51.0); HEMO FLAGS DIFF FINAL; LYMPH % 23.7 % (9.0-44.0); LYMPHOCYTE # 1.5 TH/MM3 (1.0-4.8); MEAN CELL VOLUME 93.5 FL (80.0-100.0); MEAN CORPUSCULAR HEMOGLOBIN 31.4 PG (27.0-34.0); MEAN CORPUSCULAR HGB CONC 33.6 % (32.0-36.0); MONO % 13.9 % (0.0-8.0); NEUT % 59.6 % (16.0-70.0); PLATELET COUNT 228 TH/MM3 (150-450); RED BLOOD COUNT 3.59 MIL/MM3 (4.50-5.90); RED CELL DISTRIBUTION WIDTH 13.2 % (11.6-17.2); WHITE BLOOD COUNT 6.5 TH/MM3 (4.0-11.0)
[2017-03-29 05:41] LABS: ANION GAP 7 MEQ/L (5-15); AST (GOT) 20 U/L (15-37); BICARBONATE 28.1 MEQ/L (21.0-32.0); BLOOD UREA NITROGEN 11 MG/DL (7-18); CHLORIDE 104 MEQ/L (98-107); GLOMERULAR FILTRATION RATE 188 ML/MIN (>89); MAGNESIUM 2.1 MG/DL (1.5-2.5); POTASSIUM 3.8 MEQ/L (3.5-5.1); SODIUM (NA) 139 MEQ/L (136-145)
[2017-03-29 05:42] LABS: ALT (GPT) 49 U/L (12-78)
[2017-03-29 05:44] LABS: ALKALINE PHOSPHATASE 75 U/L (45-117); TOTAL BILIRUBIN ADULT 0.2 MG/DL (0.2-1.0)
[2017-03-29] MEDS: LORazepam 1 MG TAB PO SCH ×2 (06:15→14:13)
[2017-03-29] MEDS: hydrALAZINE HCL 50 MG TAB PO SCH ×2 (06:15→14:13)
[2017-03-29] MEDS: PROPRANOLOL HCL 20 MG TAB PO SCH ×3 (06:16→12:00)
[2017-03-29] MEDS: RESP: TOBRAMYCIN SULFATE 80 MG/2 ML NEB NEB SCH (08:00)
[2017-03-29] MEDS: FAMOTIDINE 20 MG TAB G-TUBE SCH (08:17)
[2017-03-29] MEDS: levETIRAcetam 500 MG TAB G-TUBE SCH (08:17)
[2017-03-29] MEDS: DOCUSATE SODIUM 50 MG/SENNA 8.6 MG TAB PO SCH (08:17)
[2017-03-29] MEDS: APIXABAN 5 MG TABLET G-TUBE SCH (08:17)
[2017-03-29] MEDS: BACLOFEN 20 MG TAB G-TUBE SCH ×2 (08:17→14:14)
[2017-03-29] MEDS: LORATADINE 10 MG TAB G-TUBE SCH (08:17)
--- NOTE | 2017-03-29 09:34 | HHI.PR ---
Subjective Remarks This is a 31yM with history of severe traumatic brain injury and severe neurologic deficit in persistent vegetative state who was recently admitted and discharged from our facility after a 3 week hospital stay for pseudomonas pneumonia. He was discharged yesterday to his SNF and re-presents today with fever and tachycardia. per his mother, he gets tachycardic any time he gets agitated. He was running low-grade temperatures up to 100.3F at our facility, but today is > 102 F. He has no change in sputum production, oxygen requirement , or any other symptoms. His wbc is elevated, but near baseline for him over the last few weeks. Procalcitonin level is 0.24 suggestive against an acute bacterial infection. Patient is persistently chronically encephalopathic and can answer no additional information. Mother is concerned that he "just doesn't look right" but cannot identify any additional changes since he left yesterday. 03/22: no changes. HR came down appropriately. non-toxic appearing. fevers are lower, but persistent, now about where they were when he left the hospital last week. Talking with his mother, she is still concerned about the fevers and feels like he is not completely back to baseline. will consider keeping inpatient another day, although on my physical exam, he is stable and at baseline from prior exams. 03-23 PATIENT TRANSFERRED TO OUR SERVICE TODAY REMAINS NON VERBAL SOME FEVERS HAS BEEN SEEN BY ID SYDNEE RN CHART REVIEWED 03-24 NO COMPLAINTS REMAINS ON TRACH BORDERLINE FEVERS DW RN 03-25 HAS HAD BORDERLINE BLOOD PRESSURE ISSUES DW RN REMAINS NONVERBAL HAS REMAINED AFEBRILE 03-26 POTASSIUM IS LOW WILL REPLACE BY PROTOCOLS AWAIT ID CLEARANCE NONVERBAL 03-27 unchanged 03-28 FINISH ANTIBIOTICS AND HOPEFULLY TO SNF IN NEXT 24 TO 48 HOURS SYDNEE RN 03-29 OFF ANTIBIOTICS EXCEPT INHALED TOBRAMYCIN SYDNEE RN PT NONVERBAL NO COMPLAINTS Objective Vitals Vital Signs Date Time Temp Pulse Resp B/P (MAP) Pulse Ox O2 Delivery O2 Flow Rate FiO2 03/29/17 09:10 100 T-piece 5.00 28 03/29/17 08:00 80 03/29/17 06:00 83 03/29/17 04:00 65 03/29/17 04:00 98.6 65 15 106/54 (71) 98 03/29/17 02:00 55 03/29/17 00:00 99 03/29/17 00:00 98.9 99 22 119/63 (81) 92 03/28/17 22:00 80 03/28/17 20:00 53 03/28/17 20:00 99.0 53 18 106/56 (73) 100 03/28/17 18:00 65 03/28/17 16:00 99.4 65 18 91/53 (66) 100 03/28/17 16:00 61 03/28/17 14:00 75 03/28/17 12:00 99.3 75 18 105/61 (76) 100 03/28/17 12:00 75 03/28/17 10:00 83 I/O 03/28/17 03/28/17 03/28/17 03/29/17 03/29/17 03/29/17 07:00 15:00 23:00 07:00 15:00 23:00 Intake Total 809 ml 1015 ml Output Total 275 ml 550 ml 475 ml Balance 534 ml 465 ml -475 ml Intake Oral 0 ml IV Total 100 ml 100 ml Tube Feeding 609 ml 615 ml Tube Irrigant 100 ml 300 ml Output Urine Total 275 ml 550 ml 475 ml # Bowel Movements 1 1 0 Result Diagram: 03/29/17 0359 03/29/17 0359 Other Results Laboratory Tests Test 03/27/17 03:40 03/28/17 04:01 03/29/17 03:59 White Blood Count 5.6 TH/MM3 5.7 TH/MM3 6.5 TH/MM3 Red Blood Count 3.84 MIL/MM3 3.74 MIL/MM3 3.59 MIL/MM3 Hemoglobin 11.7 GM/DL 11.5 GM/DL 11.3 GM/DL Hematocrit 35.8 % 34.9 % 33.5 % Mean Corpuscular Volume 93.3 FL 93.3 FL 93.5 FL Mean Corpuscular Hemoglobin 30.6 PG 30.7 PG 31.4 PG Mean Corpuscular Hemoglobin Concent 32.8 % 33.0 % 33.6 % Red Cell Distribution Width 12.9 % 13.2 % 13.2 % Platelet Count 209 TH/MM3 221 TH/MM3 228 TH/MM3 Mean Platelet Volume 10.4 FL 10.3 FL 10.7 FL Blood Urea Nitrogen 5 MG/DL 8 MG/DL 11 MG/DL Creatinine 0.58 MG/DL 0.65 MG/DL 0.61 MG/DL Random Glucose 93 MG/DL 110 MG/DL 89 MG/DL Total Protein 6.9 GM/DL 6.7 GM/DL Albumin 2.9 GM/DL 3.0 GM/DL Calcium Level 8.5 MG/DL 8.7 MG/DL 8.7 MG/DL Phosphorus Level 2.9 MG/DL 3.5 MG/DL Magnesium Level 2.2 MG/DL 2.1 MG/DL Alkaline Phosphatase 76 U/L 75 U/L Aspartate Amino Transf (AST/SGOT) 25 U/L 20 U/L Alanine Aminotransferase (ALT/SGPT) 50 U/L 49 U/L Total Bilirubin 0.2 MG/DL 0.2 MG/DL Sodium Level 141 MEQ/L 139 MEQ/L 139 MEQ/L Potassium Level 3.7 MEQ/L 3.4 MEQ/L 3.8 MEQ/L Chloride Level 107 MEQ/L 104 MEQ/L 104 MEQ/L Carbon Dioxide Level 28.0 MEQ/L 26.9 MEQ/L 28.1 MEQ/L Anion Gap 6 MEQ/L 8 MEQ/L 7 MEQ/L Estimat Glomerular Filtration Rate 199 ML/MIN 175 ML/MIN 188 ML/MIN Neutrophils (%) (Auto) 55.8 % 59.6 % Lymphocytes (%) (Auto) 27.9 % 23.7 % Monocytes (%) (Auto) 12.6 % 13.9 % Eosinophils (%) (Auto) 3.2 % 2.3 % Basophils (%) (Auto) 0.5 % 0.5 % Neutrophils # (Auto) 3.2 TH/MM3 3.9 TH/MM3 Lymphocytes # (Auto) 1.6 TH/MM3 1.5 TH/MM3 Monocytes # (Auto) 0.7 TH/MM3 0.9 TH/MM3 Eosinophils # (Auto) 0.2 TH/MM3 0.2 TH/MM3 Basophils # (Auto) 0.0 TH/MM3 0.0 TH/MM3 CBC Comment DIFF FINAL DIFF FINAL Differential Comment Imaging Last Impressions Chest X-Ray 03/25/17 0000 Signed Impressions: Service Date/Time: Saturday, March 25, 2017 04:26 - CONCLUSION: 1. Mild cardiomegaly. 2. Clear lungs. Zachariah Echeverria Jr., MD Objective Remarks GENERAL: NOT AWAKE OR ALERT-- FOLLOWS NO COMMANDS SKIN: Warm and dry. SWEATING HEAD: Atraumatic. Normocephalic. EYES: Pupils equal and round. No scleral icterus. No injection or drainage. ENT: No nasal bleeding or discharge. Mucous membranes pink and moist. NECK: Trachea midline. No JVD. TRACHEOSTOMY IN PLACE CARDIOVASCULAR: Regular rate and rhythm. S1, S2 NO S3 OR S4 NO HEAVE OR THRILL RESPIRATORY: No accessory muscle use. Clear to auscultation. Breath sounds equal bilaterally. GASTROINTESTINAL: Abdomen soft, non-tender, nondistended. Hepatic and splenic margins not palpable. PEG MUSCULOSKELETAL: Extremities without clubbing, cyanosis, or edema. No obvious deformities. CONTRACTURES UPPER AND LOWER EXTREMITIES NEUROLOGICAL: Awake and NOT alert. No obvious cranial nerve deficits. PERSISTENT VEGETATIVE STATE- NOT ABLE TO ASSESS PSYCHIATRIC: INAppropriate mood and affect; insight and judgment ABnormal. PERSISTENT VEGETATIVE STATE Procedures NONE Medications and IVs Current Medications Acetaminophen (Tylenol Supp) 650 mg ONCE ONCE RECTAL Last administered on 03/21 09:21; Start 03/21/17 at 08:00; Stop 03/21/17 at 08:01; Status DC Sodium Chloride 1,000 ml @ 1,000 mls/hr Q1H ONCE IV Last administered on 09:20; Start 03/21/17 at 07:55; Stop 03/21/17 at 08:54; Status DC Sodium Chloride 1,000 ml @ 1,000 mls/hr Q1H ONCE IV Last administered on 09:21; Start 03/21/17 at 07:55; Stop 03/21/17 at 08:54; Status DC Sodium Chloride 100 ml @ 1,000 mls/hr Q6M ONCE IV Last administered on 09:21; Start 03/21/17 at 07:55; Stop 03/21/17 at 08:00; Status DC Cefepime HCl 2000 mg/Sodium Chloride 100 ml @ 200 mls/hr ONCE ONCE IV Last administered on 03/21/17 09:52; Start 03/21/17 at 08:00; Stop 03/21/17 at 08:29 ; Status DC Azithromycin 500 mg/Sodium Chloride 250 ml @ 250 mls/hr ONCE ONCE IV Last administered on 03/21/17 09:21; Start 03/21/17 at 08:00; Stop 03/21/17 at 08:59 ; Status DC Lorazepam (Ativan Inj) 1 mg ONCE ONCE IV PUSH Last administered on 03/21/17 11:54; Start 03/21/17 at 10:15; Stop 03/21/17 at 10:16; Status DC Albuterol/ Ipratropium (Duoneb Neb) 1 ampule ONCE ONCE NEB Last administered on 03/21/17 11:49; Start 03/21/17 at 11:45; Stop 03/21/17 at 11:46; Status DC Ketorolac Tromethamine (Toradol Inj) 30 mg ONCE ONCE IV PUSH Last administered on 03/21/17 11:55; Start 03/21/17 at 11:45; Stop 03/21/17 at 11:46 ; Status DC Lorazepam (Ativan Inj) 1 mg ONCE ONCE IV PUSH Last administered on 03/21/17 13:37; Start 03/21/17 at 12:15; Stop 03/21/17 at 12:16; Status DC Propranolol HCl (Inderal) 10 mg Q8HR PO Last administered on 03/21/17 21:25; Start 03/21/17 at 14:00; Stop 03/21/17 at 22:00; Status DC Magnesium Oxide (Mag-Ox) 800 mg UNSCH PRN PO For Magnesium 1.2 - 1.6 mg/dL; Start 03/21/17 at 12:45 Magnesium Sulfate 4 gm/Sodium Chloride 100 ml @ 50 mls/hr UNSCH PRN IV For Magnesium 0.9 - 1.1 mg/dL; Start 03/21/17 at 12:45 Magnesium Sulfate 2 gm/Sodium Chloride 100 ml @ 50 mls/hr UNSCH PRN IV For Magnesium 1.2 - 1.6 mg/dL; Start 03/21/17 at 12:45 Potassium Chloride 100 ml @ 50 mls/hr Q2H PRN IV For Potassium 2.8 - 3.2 mEq/ L Last administered on 03/24/17 16:03; Start 03/21/17 at 12:45 Potassium Chloride 100 ml @ 50 mls/hr Q2H PRN IV For Potassium 3.3 - 3.5 mEq/ L Last administered on 03/26/17 13:11; Start 03/21/17 at 12:45 Potassium Chloride 100 ml @ 50 mls/hr Q2H PRN IV For Potassium 2.8 - 3.2 mEq/L ; Start 03/21/17 at 12:45 Potassium Chloride 100 ml @ 25 mls/hr UNSCH PRN IV For Potassium 3.3 - 3.5 mEq /L; Start 03/21/17 at 12:45 Potassium Phosphate (K-Phos) 2,000 mg Q4H PRN PO For Phosphorus < 2.5 mg/dL; Start 03/21/17 at 12:45 Potassium Phosphate (K-Phos) 2,000 mg UNSCH PRN PO/TUBE SEE LABEL COMMENTS; Start 03/21/17 at 12:45 Potassium Phosphate 30 mmol/ Sodium Chloride 260 ml @ 42 mls/hr UNSCH PRN IV SEE LABEL COMMENTS; Start 03/21/17 at 12:45 Sodium Phosphate 30 mmol/Sodium Chloride 250 ml @ 42 mls/hr UNSCH PRN IV For Phosphorus < 2.5 mg/dL; Start 03/21/17 at 12:45 Albuterol/ Ipratropium (Duoneb Neb) 1 ampule Q6HR NEB INH Last administered on 03/23/17 04:02; Start 03/21/17 at 16:00; Stop 03/23/17 at 09:09; Status DC Albuterol/ Ipratropium (Duoneb Neb) 1 ampule Q2HR NEB PRN INH WHEEZING Last administered on 03/28/17 21:57; Start 03/21/17 at 12:45 Acetaminophen (Tylenol) 650 mg Q6H PRN PO PAIN 1-10 AND/OR FEVER >101F Last administered on 03/21/17 21:24; Start 03/21/17 at 12:45 Lorazepam (Ativan Inj) 1 mg Q1H PRN IV PUSH Agitation/Sedation Last administered on 03/22/17 15:37; Start 03/21/17 at 12:45 Miscellaneous Information 1 [id number] XX Last administered on 03/21/17 12:45; Start 03/21/17 at 12:45 Chlorhexidine Gluconate (Chlorhexidine 2% Cloth) Taper DAILY@04 TOP Last administered on 03/27/17 04:00; Start 03/22/17 at 04:00; Stop 03/18/18 at 03:59 Chlorhexidine Gluconate (Chlorhexidine 2% Cloth) 3 pack UNSCH PRN TOP HYGIENIC CARE; Start 03/21/17 at 12:45 Senna/Docusate Sodium (Sanam-Colace) 1 tab BID PO Last administered on 08:17; Start 03/21/17 at 21:00 Cefepime HCl 2000 mg/Sodium Chloride 100 ml @ 200 mls/hr Q8H IV Last administered on 03/28/17 20:58; Start 03/21/17 at 20:00; Stop 03/28/17 at 21:04 ; Status DC Vancomycin HCl 1250 mg/Sodium Chloride 262.5 ml @ 250 mls/hr ONCE ONCE IV ; Start 03/21/17 at 12:45; Stop 03/21/17 at 13:47; Status UNV Pharmacy Profile Note 0 ml @ 0 mls/hr UNSCH OTHER ; Start 03/21/17 at 12:45; Stop 03/26/17 at 08:34; Status DC Metronidazole 100 ml @ 100 mls/hr Q6H IV Last administered on 03/26/17 08:19 ; Start 03/21/17 at 15:00; Stop 03/26/17 at 09:44; Status DC Amlodipine Besylate (Norvasc) 10 mg DAILY PEG Last administered on 03/29/17 08 :17; Start 03/22/17 at 09:00 Apixaban (Eliquis) 5 mg BID G-TUBE Last administered on 03/29/17 08:17; Start 03/21/17 at 21:00 Baclofen (Lioresal) 20 mg TID G-TUBE Last administered on 03/29/17 08:17; Start 03/21/17 at 13:00 Clonidine (Catapres) 0.1 mg Q6H PRN PO SBP>160, DBP>90; Start 03/21/17 at 12:45 Famotidine (Pepcid) 40 mg DAILY G-TUBE Last administered on 03/29/17 08:17; Start 03/22/17 at 09:00 Hydralazine HCl (Apresoline) 50 mg Q8HR PO Last administered on 03/29/17 06:15 ; Start 03/21/17 at 14:00 Levetriacetam (Keppra) 1,000 mg BID G-TUBE Last administered on 03/29/17 08:17 ; Start 03/21/17 at 21:00 Non-Formulary Medication 5 mg DAILY G-TUBE ; Start 03/22/17 at 09:00; Status UNV Vancomycin HCl 1000 mg/Sodium Chloride 250 ml @ 250 mls/hr Q8H IV Last administered on 03/21/17 21:24; Start 03/21/17 at 14:00; Stop 03/21/17 at 23:59 ; Status DC Loratadine (Claritin) 5 mg DAILY G-TUBE Last administered on 03/29/17 08:17; Start 03/22/17 at 09:00 Vancomycin HCl 1000 mg/Sodium Chloride 250 ml @ 250 mls/hr Q8H IV Last administered on 03/23/17 06:35; Start 03/22/17 at 06:00; Stop 03/23/17 at 09:28 ; Status DC Propranolol HCl (Inderal) 20 mg Q6HR PO Last administered on 03/29/17 06:16; Start 03/22/17 at 00:00 Lorazepam (Ativan) 1 mg Q8HR PO Last administered on 03/29/17 06:15; Start at 19:45 Miscellaneous Information SPECIFIC LAB TO BE DRAWN:VANCOMY... ONCE ONCE .XX ; Start 03/22/17 at 13:45; Stop 03/22/17 at 13:51; Status DC Miscellaneous Information SPECIFIC LAB TO BE DRAWN:VANCOMY... ONCE ONCE .XX Last administered on 03/22/17 21:45; Start 03/22/17 at 21:45; Stop 03/22/17 at 21:46; Status DC Guaifenesin (Robitussin Liq) 100 mg Q4H PRN PO COUGH Last administered on 17:16; Start 03/23/17 at 10:00 Albuterol/ Ipratropium (Duoneb Neb) 1 ampule Q4HR NEB INH Last administered on 03/27/17 11:00; Start 03/23/17 at 12:00; Stop 03/27/17 at 11:59; Status DC Metoprolol Tartrate (Lopressor) 25 mg BID PRN PO HR>110; Start 03/23/17 at 10: 00 Vancomycin HCl 1250 mg/Sodium Chloride 262.5 ml @ 250 mls/hr Q8H IV Last administered on 03/26/17t 06:05; Start 03/23/17 at 14:00; Stop 03/26/17 at 08:34 ; Status DC Miscellaneous Information SPECIFIC LAB TO BE DRAWN:VANCOMY... ONCE ONCE .XX ; Start 03/24/17 at 13:45; Stop 03/24/17 at 13:46; Status DC Potassium Chloride 100 ml @ 50 mls/hr Q2H PRN IV For Potassium 2.8 - 3.2 mEq/L ; Start 03/24/17 at 08:15 Potassium Chloride 100 ml @ 50 mls/hr Q2H PRN IV For Potassium 2.8 - 3.2 mEq/L ; Start 03/24/17 at 08:15 Potassium Bicarb/ Potassium Chloride (K-Lyte Cl Eff) 50 meq UNSCH PRN PO For Potassium 3.3 - 3.5 mEq/L Last administered on 03/28/17t 06:13; Start 03/24/17 at 08:15 Potassium Chloride 100 ml @ 25 mls/hr UNSCH PRN IV For Potassium 3.3 - 3.5 mEq /L; Start 03/24/17 at 08:15 Potassium Chloride 100 ml @ 50 mls/hr Q2H PRN IV For Potassium 3.3 - 3.5 mEq/L ; Start 03/24/17 at 08:15 Magnesium Sulfate 4 gm/Sodium Chloride 100 ml @ 50 mls/hr UNSCH PRN IV For Magnesium 0.9 - 1.1 mg/dL; Start 03/24/17 at 08:15 Magnesium Oxide (Mag-Ox) 800 mg UNSCH PRN PO For Magnesium 1.2 - 1.6 mg/dL; Start 03/24/17 at 08:15 Magnesium Sulfate 2 gm/Sodium Chloride 100 ml @ 50 mls/hr UNSCH PRN IV For Magnesium 1.2 - 1.6 mg/dL; Start 03/24/17 at 08:15 Potassium Phosphate (K-Phos) 2,000 mg Q4H PRN PO For Phosphorus < 2.5 mg/dL; Start 03/24/17 at 08:15 Sodium Phosphate 30 mmol/Sodium Chloride 250 ml @ 42 mls/hr UNSCH PRN IV For Phosphorus < 2.5 mg/dL; Start 03/24/17 at 08:15 Potassium Phosphate (K-Phos) 2,000 mg UNSCH PRN PO/TUBE SEE LABEL COMMENTS; Start 03/24/17 at 08:15 Potassium Phosphate 30 mmol/ Sodium Chloride 260 ml @ 42 mls/hr UNSCH PRN IV SEE LABEL COMMENTS; Start 03/24/17 at 08:15 Miscellaneous Information SPECIFIC LAB TO BE ... ONCE ONCE .XX ; Start 03/26 at 13:45; Stop 03/26/17 at 13:46; Status Cancel Tobramycin Sulfate (Tobramycin Neb) 80 mg Q12HR NEB NEB Last administered on 08:00; Start 03/26/17 at 09:45; Stop 04/02/17 at 09:44 Albuterol/ Ipratropium (Duoneb Neb) 1 ampule Q4HR NEB NEB Last administered on 03/29/17 09:09; Start 03/28/17 at 20:16 Urinary Catheter: Yes Vascular Central Line Catheter: No A/P Assessment and Plan Assessment: 31yM with history of severe traumatic brain injury with encephalopathy who presents with fever and tachycardia. Continue broad spectrum abx until cultures are negative x 48h. will keep inpatient an additional day at mother's request given her concern over fever curve. Sinus tachycardia - likely secondary to agitation - schedule ativan 1mg po TID - propranolol 20mg po q6h - prn ativan iv for breakthrough agitation/tachycardia. Fevers - likely central at this point - procalcitonin 0.24 OFF CEFEPIME- MONITOR FOR FEVERS - send durbin cultures - ID consult - unlikely to be acute infectious etiology BORDERLINE FEVERS AXILLARY HYPERTENSION- HOME MEDS DYSPHAGIA -SP PEG CHRONIC PERSISTENT VEGETATIVE STATE AFTER TBI RESTART TUBE FEEDS HX MDRO HYPOKALEMIA REPLACE BY PROTOCOLS continue home meds. ON INHALED TOBRAMYCIN HOPEFULLY TO SNF IN NEXT 24 TO 48 HOURS Discharge Planning NEEDS ID CLEARANCE HOPEFULLY IN NEXT 24 TO 48 HOURS Hudson Luz DO Mar 29, 2017 09:34
[2017-03-29] MEDS ORDERED: TOBR40IN5 NEB (09:58)
[2017-03-29] MEDS ORDERED: GUAI100S7 PO (09:58)
[2017-03-29] MEDS ORDERED: APIX5TAB G-TUBE (09:58)
[2017-03-29] MEDS ORDERED: FLEE5TAB PO (09:58)
[2017-03-29] MEDS ORDERED: HYDR-3800 PO (09:58)
[2017-03-29] MEDS ORDERED: KEPP10002 G-TUBE (09:58)
[2017-03-29] MEDS ORDERED: FAMO1TAB37 G-TUBE (09:58)
[2017-03-29] MEDS ORDERED: OXYC1TAB63 PO (09:58)
[2017-03-29] MEDS ORDERED: PROP20TA3 PEG (09:58)
[2017-03-29] MEDS ORDERED: POTA10SO12 PO (09:58)
[2017-03-29] MEDS ORDERED: SENN1TAB PEG (09:58)
[2017-03-29] MEDS ORDERED: BACL20TA G-TUBE (09:58)
[2017-03-29] MEDS ORDERED: METO25TA3 PO (09:58)
[2017-03-29] MEDS ORDERED: AMLO10 PEG (09:58)
[2017-03-29] MEDS ORDERED: LORA-392 PO (09:58)
[2017-03-29] MEDS ORDERED: LORA-474 G-TUBE (09:58)
[2017-03-29] MEDS ORDERED: CLON.1 PO (09:58)
--- NOTE | 2017-03-29 10:03 | HHI.DS ---
Discharge Summary Admission Date Mar 21, 2017 at 12:45 Discharge Date: Mar 29, 2017 Admitting Diagnosis sepsis, tachycardia NOS, leukocytosis, febrile illness (1) Status post tracheostomy ICD Code: Z93.0 - Tracheostomy status Diagnosis: Secondary Status: Acute (2) Febrile illness ICD Code: R50.9 - Fever, unspecified Diagnosis: Principal Status: Acute (3) Pneumonia ICD Code: J18.9 - Pneumonia, unspecified organism Diagnosis: Principal Status: Acute (4) Sepsis ICD Code: A41.9 - Sepsis, unspecified organism Diagnosis: Principal Status: Resolved (5) Leukocytosis ICD Code: D72.829 - Elevated white blood cell count, unspecified Diagnosis: Secondary Status: Acute (6) Seizure disorder ICD Code: G40.909 - Epilepsy, unspecified, not intractable, without status epilepticus Diagnosis: Secondary (7) Fever ICD Code: R50.9 - Fever, unspecified Diagnosis: Principal (8) Chronic respiratory failure ICD Code: J96.10 - Chronic respiratory failure, unspecified whether with hypoxia or hypercapnia Diagnosis: Principal (9) Feeding tube dysfunction ICD Code: T85.598A - Other mechanical complication of other gastrointestinal prosthetic devices, implants and grafts, initial encounter Diagnosis: Secondary (10) Permanent vegetative state ICD Code: R40.3 - Persistent vegetative state Diagnosis: Secondary Status: Acute (11) Dyslipidemia ICD Code: E78.5 - Hyperlipidemia, unspecified Diagnosis: Secondary Status: Acute (12) Hypertension ICD Code: I10 - Essential (primary) hypertension Diagnosis: Secondary Status: Acute Procedures NONE Brief History - From Admission This is a 31yM with history of severe traumatic brain injury and severe neurologic deficit in persistent vegetative state who was recently admitted and discharged from our facility after a 3 week hospital stay for pseudomonas pneumonia. He was discharged yesterday to his SNF and re-presents today with fever and tachycardia. per his mother, he gets tachycardic any time he gets agitated. He was running low-grade temperatures up to 100.3F at our facility, but today is > 102 F. He has no change in sputum production, oxygen requirement , or any other symptoms. His wbc is elevated, but near baseline for him over the last few weeks. Procalcitonin level is 0.24 suggestive against an acute bacterial infection. Patient is persistently chronically encephalopathic and can answer no additional information. Mother is concerned that he "just doesn't look right" but cannot identify any additional changes since he left yesterday. CBC/BMP: 03/29/17 0359 03/29/17 0359 Significant Findings Laboratory Tests Test 03/27/17 03:40 03/28/17 04:01 03/29/17 03:59 Red Blood Count 3.84 MIL/MM3 (4.50-5.90) 3.74 MIL/MM3 (4.50-5.90) 3.59 MIL/MM3 (4.50-5.90) Hemoglobin 11.7 GM/DL (13.0-17.0) 11.5 GM/DL (13.0-17.0) 11.3 GM/DL (13.0-17.0) Hematocrit 35.8 % (39.0-51.0) 34.9 % (39.0-51.0) 33.5 % (39.0-51.0) Blood Urea Nitrogen 5 MG/DL (7-18) Creatinine 0.58 MG/DL (0.60-1.30) Albumin 2.9 GM/DL (3.4-5.0) 3.0 GM/DL (3.4-5.0) Monocytes (%) (Auto) 12.6 % (0.0-8.0) 13.9 % (0.0-8.0) Random Glucose 110 MG/DL (74-106) Potassium Level 3.4 MEQ/L (3.5-5.1) Imaging Last Impressions Chest X-Ray 03/25/17 0000 Signed Impressions: Service Date/Time: Saturday, March 25, 2017 04:26 - CONCLUSION: 1. Mild cardiomegaly. 2. Clear lungs. Zachariah Echeverria Jr., MD PE at Discharge GENERAL: non verbal. SKIN: Warm and dry. sweating HEAD: Atraumatic. Normocephalic. EYES: eyes closed. ENT: No nasal bleeding or discharge. Mucous membranes pink and moist. NECK: Trachea midline. No JVD. TRACHEOSTOMY IN PLACE CARDIOVASCULAR: Regular rate and rhythm, no murmurs RESPIRATORY: upper airway noise, no crackles GASTROINTESTINAL: Abdomen soft, non-tender, nondistended. PEG in place. MUSCULOSKELETAL: Extremities without edema. No obvious deformities. contractures in upper and lower ext noted NEUROLOGICAL: non verbal. Hospital Course This is a 31yM with history of severe traumatic brain injury and severe neurologic deficit in persistent vegetative state who was recently admitted and discharged from our facility after a 3 week hospital stay for pseudomonas pneumonia. He was discharged yesterday to his SNF and re-presents today with fever and tachycardia. per his mother, he gets tachycardic any time he gets agitated. He was running low-grade temperatures up to 100.3F at our facility, but today is > 102 F. He has no change in sputum production, oxygen requirement , or any other symptoms. His wbc is elevated, but near baseline for him over the last few weeks. Procalcitonin level is 0.24 suggestive against an acute bacterial infection. Patient is persistently chronically encephalopathic and can answer no additional information. Mother is concerned that he "just doesn't look right" but cannot identify any additional changes since he left yesterday. 03/22: no changes. HR came down appropriately. non-toxic appearing. fevers are lower, but persistent, now about where they were when he left the hospital last week. Talking with his mother, she is still concerned about the fevers and feels like he is not completely back to baseline. will consider keeping inpatient another day, although on my physical exam, he is stable and at baseline from prior exams. 03-23 PATIENT TRANSFERRED TO OUR SERVICE TODAY REMAINS NON VERBAL SOME FEVERS HAS BEEN SEEN BY ID SYDNEE RN CHART REVIEWED 03-24 NO COMPLAINTS REMAINS ON TRACH BORDERLINE FEVERS SYDNEE RN 03-25 HAS HAD BORDERLINE BLOOD PRESSURE ISSUES SYDNEE RN REMAINS NONVERBAL HAS REMAINED AFEBRILE 03-26 POTASSIUM IS LOW WILL REPLACE BY PROTOCOLS AWAIT ID CLEARANCE NONVERBAL 03-27 unchanged 03-28 FINISH ANTIBIOTICS AND HOPEFULLY TO SNF IN NEXT 24 TO 48 HOURS SYDNEE RN 03-29 OFF ANTIBIOTICS EXCEPT INHALED TOBRAMYCIN SYDNEE RN PT NONVERBAL NO COMPLAINTS CAN DO SUSHLIA AT SNF DC TO SNF TODAY Pt Condition on Discharge: Good Discharge Disposition: Discharge to SNF Discharge Time: > 30 minutes Discharge Instructions DIET: Follow Instructions for: On Tube Feeding Additional Diet Instructions: VITAL 1.5 AT 50ML/HR Activities you can perform: Continue Bedrest New Medications: Propranolol (Propranolol) 20 Mg Tab 20 MG PEG Q6HR for Blood Pressure Management, #120 TAB Sennosides-Docusate Sodium (Senna Plus 8.6-50 mg) 8.6 Mg-50 Mg Tab 2 TAB PEG BID for Constipation, #120 TAB Tobramycin Sulfate (Tobramycin Sulfate) 40 Mg/Ml Inj 80 MG NEB Q12HR NEB for Breathing Treatment, #10 AMPULE Continued Medications: Acetaminophen (Tylenol) 325 Mg Tab 650 MG PO Q6H PRN for INCREASED TEMPERATURE, TAB 0 Refills Amlodipine (Norvasc) 10 Mg Tab 10 MG PEG DAILY for Blood Pressure Management, #30 TAB (This prescription has been renewed) Apixaban (Eliquis) 5 Mg Tab 5 MG G-TUBE BID for Blood Clot Prevention, #60 TAB 0 Refills (This prescription has been renewed) Atropine Opth Drops (Atropine Opth Drops) 1% Soln 1 DROP SL Q12HR PRN for For mild/moderate secretions, #2 ML 0 Refills Baclofen (Baclofen) 20 Mg Tab 20 MG G-TUBE TID for Muscle Spasm, #90 TAB 0 Refills (This prescription has been renewed) Bisacodyl DR (Bisacodyl EC) 5 Mg Tabec 5 MG PO DAILY PRN for CONSTIPATION, #60 TAB 0 Refills (This prescription has been renewed) Ciprofloxacin Opth Drops (Ciloxan Opth Drops) 0.3% Soln 1 DROP EACH EYE Q4H for EYE INFECTION, #1 BOTTLE 0 Refills Clonidine (Catapres) 0.1 Mg Tab 0.1 MG PO Q6H PRN for SBP>160, DBP>90, #90 TAB (This prescription has been renewed) Famotidine (Pepcid) 20 Mg Tab 40 MG G-TUBE DAILY for Heartburn Management, #60 TAB 0 Refills (This prescription has been renewed) Guaifenesin Liq (Guaifenesin Liq) 100 mg/5 ML Soln 100 MG PO Q4H PRN for COUGH, #1 BOTTLE 0 Refills (This prescription has been renewed) Hydralazine HCl (Hydralazine HCl) 50 Mg Tablet 50 MG PO Q8HR for Blood Pressure Management, #90 TAB (This prescription has been renewed) Hyoscyamine (Hyoscyamine) 0.125 Mg Tab 0.125 MG PO Q4H for Gastrointestinal disorders, TAB 0 Refills Ipratropium-Albuterol Neb (Duoneb) 0.5-2.5 Mg/3 Ml Neb 1 NEBULE INH Q4HR NEB for SHORTNESS OF BREATH, #120 NEBULE 0 Refills Levetiracetam (Keppra) 1,000 Mg Tab 1000 MG G-TUBE BID for Control Seizures, #60 TAB 0 Refills (This prescription has been renewed) Loratadine Liq (Claritin Liq) 5 Mg/5 Ml Liq 5 MG G-TUBE DAILY for Allergy Management, #1 BOTTLE 0 Refills Lorazepam (Ativan) 1 Mg Tab 1 MG G-TUBE Q4H PRN for for severe anxiety or dyspnea, #60 TAB 0 Refills (This prescription has been renewed) Lorazepam (Ativan) 0.5 Mg Tab 0.5 MG PO DAILY PRN for ANXIETY AND/OR AGITATION, #60 TAB 0 Refills (This prescription has been renewed) Metoprolol Tartrate (Metoprolol Tartrate) 25 Mg Tab 25 MG PO BID PRN for HR>110, #60 TAB 0 Refills (This prescription has been renewed) Oxycodone-Acetaminophen (Oxycodone-Acetaminophen) 5-325 mg Tab 1 TAB PO Q6H PRN for PAIN, #30 TAB 0 Refills (This prescription has been renewed ) Potassium Chloride Liq (Potassium Chloride Liq) 20 Meq/15 Ml Soln 20 MEQ PO BID for Electrolyte Replacement, #900 ML 0 Refills (This prescription has been renewed) Discontinued Medications: Ipratropium-Albuterol Neb (Duoneb) 0.5-2.5 Mg/3 Ml Neb 1 NEBULE INH DAILY for Breathing Treatment, #30 NEBULE 0 Refills Levofloxacin (Levaquin) 500 Mg Tablet 500 MG PEG DAILY for Infection for 10 Days, #10 TAB 0 Refills Hudson Luz DO Mar 29, 2017 10:03
== END 2017-03-29 17:15 | DRG 871 ==
LOC: NEPC 07:48 → NEDA 12:45 → HIMW 19:55
PROVIDERS: ADMIT Hospitalist; ATTEND Hospitalist
DX: A41.52 Sepsis due to Pseudomonas (principal); J69.0 Pneumonitis due to inhalation of food and vomit; G93.1 Anoxic brain damage, not elsewhere classified; R40.3 Persistent vegetative state; J96.10 Chronic respiratory failure, unspecified whether with hypoxia or hypercapnia; Z93.0 Tracheostomy status; R13.10 Dysphagia, unspecified; E11.9 Type 2 diabetes mellitus without complications; E78.5 Hyperlipidemia, unspecified; E87.6 Hypokalemia; G40.909 Epilepsy, unspecified, not intractable, without status epilepticus; Z93.1 Gastrostomy status; Z87.820 Personal history of traumatic brain injury; Z95.2 Presence of prosthetic heart valve; I10 Essential (primary) hypertension; Z79.891 Long term (current) use of opiate analgesic; Z86.718 Personal history of other venous thrombosis and embolism; F41.9 Anxiety disorder, unspecified; R00.0 Tachycardia, unspecified
CPT/HCPCS: 71010; 76937; 80048; 80053; 80202; 81001; 82550; 82552; 82805; 83036; 83605; 83735; 84100; 84145; 84439; 84443; 85025; 85027; 87040; 87070; 87077; 87086; 87186; 87205; 87641; 87804; 93005; 94640; 94664; 96365; 96366; 96368; 96375; J0456; J0692; J1885; J2060; J3370; J3480; J7030; J7050; J7685

== ENCOUNTER 2017-03-30 03:22 | Inpatient (IN) | payer OTHER ==
[2017-03-30] VITALS (18 sets, daily range): BP systolic 134–204; BP diastolic 64–102; PULSE 92–170; RESP 11–60; TEMP 98.8–102.5; O2SAT 98–100
[~2017-03-30 03:22] MED LIST changes: +PROP20TA3 PEG; +SENN1TAB PEG; +TOBR40IN5 NEB
[2017-03-30] MEDS ORDERED: ONDANSETRON HCL 4 MG/2 ML VIAL IV PUSH ONE (04:00)
[2017-03-30] MEDS ORDERED: SODIUM CHLOR 0.9% 1000 ML INJ 1,000 ML IV ONE ×2 (04:00→04:15)
[2017-03-30 04:17] LABS: AUTOMATED NEUTROPHIL # 12.6 TH/MM3 (1.8-7.7); BASOPHIL % 0.2 % (0.0-2.0); EOSINOPHIL # 0.1 TH/MM3 (0-0.4); EOSINOPHIL % 0.7 % (0.0-4.0); HEMATOCRIT 38.7 % (39.0-51.0); MEAN CELL VOLUME 92.8 FL (80.0-100.0); MEAN CORPUSCULAR HEMOGLOBIN 30.4 PG (27.0-34.0); MEAN CORPUSCULAR HGB CONC 32.8 % (32.0-36.0); MONO % 6.6 % (0.0-8.0); NEUT % 85.5 % (16.0-70.0); PLATELET COUNT 364 TH/MM3 (150-450); RED BLOOD COUNT 4.17 MIL/MM3 (4.50-5.90); RED CELL DISTRIBUTION WIDTH 13.5 % (11.6-17.2); WHITE BLOOD COUNT 14.7 TH/MM3 (4.0-11.0)
[2017-03-30 04:28] LABS: HEMO FLAGS AUTO DIFF
--- NOTE | 2017-03-30 04:29 | RADRPT ---
EXAM DATE/TIME: 03/30/2017 04:05 [facility] COMPARISON: CHEST SINGLE AP, February 27, 2017, 5:02. CHEST SINGLE AP, March 21, 2017, 11:50. CHEST SINGLE AP , March 25, 2017, 4:26. INDICATIONS : Cough. MEDICAL HISTORY : Hypertension. Seizures SURGICAL HISTORY : Tracheostomy. Gastrostomy. GJ tube placement ENCOUNTER: Initial ACUITY: 1 day PAIN SCORE: Non-responsive. LOCATION: Bilateral chest FINDINGS: There is some motion artifact blurring the lung markings in both lungs. Symmetric aeration of the narinder ngs. No focal infiltrates seen. Osseous structures are grossly intact. Tracheostomy and PEG tube i n place. CONCLUSION: Technical limitations due to patient motion. No definite infiltrates seen. Zachariah Jiménez MD on March 30, 2017 at 4:25 Board Certified Radiologist. This report was verified electronically.
[2017-03-30] MEDS ORDERED: LORazepam 2 MG/ML VIAL IV PUSH ONE (04:30)
[2017-03-30 04:36] LABS: ALT (GPT) 60 U/L (12-78); ANION GAP 8 MEQ/L (5-15); AST (GOT) 25 U/L (15-37); BICARBONATE 27.6 MEQ/L (21.0-32.0); BLOOD UREA NITROGEN 12 MG/DL (7-18); CHLORIDE 101 MEQ/L (98-107); GLOMERULAR FILTRATION RATE 130 ML/MIN (>89); MAGNESIUM 2.3 MG/DL (1.5-2.5); SODIUM (NA) 137 MEQ/L (136-145)
--- NOTE | 2017-03-30 04:36 | PD ---
HPI Chief Complaint: vomiting Time Seen by Provider: 03:30 Travel History International Travel<30 days: No Contact w/Intl Traveler<30days: No History of Present Illness HPI So 31-year-old male with a history of severe to moderate brain injury and persistent vegetative state, resident of [facility], discharged from the hospital yesterday at 10 AM, here with vomiting. They report brownish emesis. Patient had multiple recent admissions with concern for central fever versus sepsis. History Past Medical History Narrative Medical History of Severe traumatic brain injury and persistent vegetative state Chronic tracheostomy Chronic NOAC use History of left upper extremity DVT Recurrent aspiration pneumonia Hypertension Dyslipidemia History of pancreatitis/pseudocyst Diabetes mellitus Chronic narcotic use Chronic muscle relaxant use Social History Alcohol Use: No Tobacco Use: No Allergies-Medications (Allergen,Severity, Reaction): Coded Allergies: haloperidol (Unverified Adverse Reaction, Severe, Seizures, 03/30/17) Reported Meds & Prescriptions Reported Meds & Active Scripts Active Senna Plus 8.6-50 mg (Sennosides-Docusate Sodium) 8.6 Mg-50 Mg Tab 2 Tab PEG BID Propranolol (Propranolol HCl) 20 Mg Tab 20 Mg PEG Q6HR Tobramycin Sulfate 40 Mg/Ml Inj 80 Mg NEB Q12HR NEB Norvasc (Amlodipine Besylate) 10 Mg Tab 10 Mg PEG DAILY Hydralazine HCl 50 Mg Tablet 50 Mg PO Q8HR Catapres (Clonidine) 0.1 Mg Tab 0.1 Mg PO Q6H PRN Potassium Chloride Liq (Potassium Chloride) 20 Meq/15 Ml Soln 20 Meq PO BID Oxycodone-Acetaminophen 5-325 mg Tab 1 Tab PO Q6H PRN Metoprolol Tartrate 25 Mg Tab 25 Mg PO BID PRN Guaifenesin Liq (Guaifenesin) 100 mg/5 ML Soln 100 Mg PO Q4H PRN Bisacodyl EC (Bisacodyl) 5 Mg Tabec 5 Mg PO DAILY PRN Ativan (Lorazepam) 0.5 Mg Tab 0.5 Mg PO DAILY PRN Baclofen 20 Mg Tab 20 Mg G-TUBE TID Pepcid (Famotidine) 20 Mg Tab 40 Mg G-TUBE DAILY Eliquis (Apixaban) 5 Mg Tab 5 Mg G-TUBE BID Ativan (Lorazepam) 1 Mg Tab 1 Mg G-TUBE Q4H PRN Keppra (Levetiracetam) 1,000 Mg Tab 1,000 Mg G-TUBE BID Reported Tylenol (Acetaminophen) 325 Mg Tab 650 Mg PO Q6H PRN Duoneb (Ipratropium-Albuterol Neb) 0.5-2.5 Mg/3 Ml Neb 1 Nebule INH Q4HR NEB Hyoscyamine (Hyoscyamine Sulfate) 0.125 Mg Tab 0.125 Mg PO Q4H Ciloxan Opth Drops (Ciprofloxacin HCl) 0.3% Soln 1 Drop EACH EYE Q4H Atropine Opth Drops 1% Soln 1 Drop SL Q12HR PRN Claritin Liq (Loratadine) 5 Mg/5 Ml Liq 5 Mg G-TUBE DAILY Review of Systems ROS Limitations: Clinical Condition Physical Exam Narrative GENERAL: 31-year-old male, eyes open, unresponsive, diaphoretic, chronically ill -appearing. SKIN: Focused skin assessment warm/dry. HEAD: Atraumatic. Normocephalic. EYES: Pupils equal and round. No scleral icterus. No injection or drainage. ENT: No nasal bleeding or discharge. Mucous membranes pink and moist. NECK: Trachea midline. No JVD. CARDIOVASCULAR: Heart rate rapid. Regular. No appreciable murmurs. RESPIRATORY: Respiratory rate appears a little bit rapid. Nonlabored. ABDOMINAL: G J-tube in place. Abdomen little bit firm, associated with tenderness. Is no grimace to deep palpation. There is no distention. MUSCULOSKELETAL: No obvious deformities. No significant edema. Patient with multiple contractures. NEUROLOGICAL: Eyes open but completely unresponsive. Persistent vegetative state Data Data Orders Orders Complete Blood Count With Diff (03/30/17 03:49) Comprehensive Metabolic Panel (03/30/17 03:49) Lactic Acid Sepsis Protocol (03/30/17 03:49) Magnesium (Mg) (03/30/17 03:49) Troponin I (03/30/17 03:49) Blood Culture (03/30/17 03:49) Chest, Single Ap (03/30/17 03:49) Blood Glucose (03/30/17 03:49) Ecg Monitoring (03/30/17 03:49) Iv Access Insert/Monitor (03/30/17 03:49) Oximetry (03/30/17 03:49) Oxygen Administration (03/30/17 03:49) Sodium Chlor 0.9% 1000 Ml Inj (Ns 1000 M (03/30/17 04:00) Ondansetron Inj (Zofran Inj) (03/30/17 04:00) Cath For Specimen (03/30/17 04:03) Sodium Chlor 0.9% 1000 Ml Inj (Ns 1000 M (03/30/17 04:15) Lorazepam Inj (Ativan Inj) (03/30/17 04:30) Abdomen, Upright Only (03/30/17 ) Procalcitonin (03/30/17 04:35) Amlodipine (Norvasc) (03/30/17 09:00) Apixaban (Eliquis) (03/30/17 09:00) Atropine 1% Opth Soln (Atropine 1% Opth (03/30/17 05:30) Baclofen (Lioresal) (03/30/17 09:00) Guaifenesin Liq (Robitussin Liq) (03/30/17 05:30) Hydralazine (Apresoline) (03/30/17 06:00) Hyoscyamine (Levsin) (03/30/17 08:00) Albuterol-Ipratropium Neb (Duoneb Neb) (03/30/17 08:00) Levetiracetam (Keppra) (03/30/17 09:00) Lorazepam (Ativan) (03/30/17 05:30) Propranolol (Inderal) (03/30/17 06:00) Tobramycin Neb (Tobramycin Neb) (03/30/17 08:00) Loratadine (Claritin) (03/30/17 09:00) Ciprofloxacin 0.3% Opth Soln (Ciloxan 0. (03/30/17 08:00) Famotidine (Pepcid) (03/30/17 09:00) Vital Signs (Adult) Q4H (03/30/17 05:20) Activity Oob With Assistance (03/30/17 05:20) Tractor Distributor / Telemetry .CONTINUOUS (03/30/17 05:20) Intake + Output KARIME.QSHIFT (03/30/17 05:20) Sodium Chlor 0.9% 1000 Ml Inj (Ns 1000 M (03/30/17 05:20) Sodium Chloride 0.9% Flush (Ns Flush) (03/30/17 05:30) Sodium Chloride 0.9% Flush (Ns Flush) (03/30/17 09:00) Ondansetron Inj (Zofran Inj) (03/30/17 05:30) Comprehensive Metabolic Panel (03/31/17 06:00) Complete Blood Count With Diff (03/31/17 06:00) Case Management Consult (03/30/17 05:20) Morphine Inj (Morphine Inj) (03/30/17 05:30) Morphine Inj (Morphine Inj) (03/30/17 05:30) Acetaminophen 1000 Mg/100 Ml (Ofirmev 10 (03/30/17 05:30) Docusate Sodium-Senna (Sanam-Colace) (03/30/17 09:00) Magnesium Hydroxide Liq (Milk Of Magnesi (03/30/17 05:30) Sennosides (Senokot) (03/30/17 05:30) Bisacodyl Supp (Dulcolax Supp) (03/30/17 05:30) Lactulose Liq (Lactulose Liq) (03/30/17 05:30) Inpatient Certification (03/30/17 ) Consult Infectious Disease (03/30/17 ) Tube Feeding (03/30/17 05:23) Vancomycin Consult Pharmacy (Vancomycin (03/30/17 05:45) Cefepime Inj (Maxipime Inj) (03/30/17 06:00) (Hub Use Only)Inp Phy Cons/Ref (03/30/17 ) Admit Order (Ed Use Only) (03/30/17 05:43) Consult Gastroenterology (03/30/17 ) Ct Abd/Pel W Iv Contrast(Rout) (03/30/17 ) Labs Laboratory Tests Test 03/30/17 04:00 White Blood Count 14.7 TH/MM3 Red Blood Count 4.17 MIL/MM3 Hemoglobin 12.7 GM/DL Hematocrit 38.7 % Mean Corpuscular Volume 92.8 FL Mean Corpuscular Hemoglobin 30.4 PG Mean Corpuscular Hemoglobin Concent 32.8 % Red Cell Distribution Width 13.5 % Platelet Count 364 TH/MM3 Mean Platelet Volume 10.1 FL Neutrophils (%) (Auto) 85.5 % Lymphocytes (%) (Auto) 7.0 % Monocytes (%) (Auto) 6.6 % Eosinophils (%) (Auto) 0.7 % Basophils (%) (Auto) 0.2 % Neutrophils # (Auto) 12.6 TH/MM3 Lymphocytes # (Auto) 1.0 TH/MM3 Monocytes # (Auto) 1.0 TH/MM3 Eosinophils # (Auto) 0.1 TH/MM3 Basophils # (Auto) 0.0 TH/MM3 CBC Comment AUTO DIFF Differential Comment AUTO DIFF CONFIRMED Platelet Estimate NORMAL Platelet Morphology Comment NORMAL Blood Urea Nitrogen 12 MG/DL Creatinine 0.84 MG/DL Random Glucose 119 MG/DL Total Protein 8.5 GM/DL Albumin 3.7 GM/DL Calcium Level 9.2 MG/DL Magnesium Level 2.3 MG/DL Alkaline Phosphatase 91 U/L Aspartate Amino Transf (AST/SGOT) 25 U/L Alanine Aminotransferase (ALT/SGPT) 60 U/L Total Bilirubin 0.2 MG/DL Sodium Level 137 MEQ/L Potassium Level 4.0 MEQ/L Chloride Level 101 MEQ/L Carbon Dioxide Level 27.6 MEQ/L Anion Gap 8 MEQ/L Estimat Glomerular Filtration Rate 130 ML/MIN Lactic Acid Level 2.4 mmol/L Troponin I LESS THAN 0.02 NG/ML MDM Medical Decision Making Medical Screen Exam Complete: Yes Emergency Medical Condition: Yes Interpretation(s) CBC remarkable for mild leukocytosis, mild anemia. Differential Diagnosis SIRS, central fever, infection, other Narrative Course Medical decision making 31-year-old man, persistent vegetative state following severe chronic brain injury, known upper extremity DVT, multiple recent admissions with recurrent SIRS criteria concern for sepsis. Negative blood cultures most recently, positive blood cultures in February. We'll check labs, IV fluids, rinses, Zofran , reassess. Hold antibiotics for now. Diagnosis Primary Impression: Chronic respiratory failure Additional Impressions: Hypoxic encephalopathy Leukocytosis Admitting Information Admitting Physician Requests: Admit Agustin Ann MD Mar 30, 2017 04:36
[2017-03-30 04:40] LABS: ALKALINE PHOSPHATASE 91 U/L (45-117); TOTAL BILIRUBIN ADULT 0.2 MG/DL (0.2-1.0)
--- NOTE | 2017-03-30 05:21 | RADRPT ---
EXAM DATE/TIME: 03/30/2017 04:37 [facility] COMPARISON: No previous studies available for comparison. INDICATIONS : Obstruction. MEDICAL HISTORY : Hypertension. Seizures SURGICAL HISTORY : Tracheostomy. Gastrostomy. GJ tube placement ENCOUNTER: Initial ACUITY: 1 day PAIN SCORE: Non-responsive. LOCATION: abdomen FINDINGS: Frontal view of the abdomen with the patient's hand is superimposed upon the lower abdomen demonstrat es gaseous distention of loops of small and large bowel. Small bowel loops measure up to 4.5 cm in w idth. Percutaneous gastrostomy tube projects over the midline epigastric region. The visualized low er lungs are clear. CONCLUSION: Diffusely dilated loops of bowel. Zachariah Jiménez MD on March 30, 2017 at 5:17 Board Certified Radiologist. This report was verified electronically.
[2017-03-30] MEDS ORDERED: BISACODYL 10 MG SUPP RECTAL PRN (05:30)
[2017-03-30] MEDS ORDERED: MAGNESIUM HYDROXIDE SUSP 30 ML CUP PO PRN (05:30)
[2017-03-30] MEDS ORDERED: ONDANSETRON HCL 4 MG/2 ML VIAL IVP PRN (05:30)
[2017-03-30] MEDS ORDERED: SENNOSIDES 8.6 MG TAB PO PRN (05:30)
[2017-03-30] MEDS ORDERED: BISACODYL EC 5 MG TABEC PO PRN (05:30)
[2017-03-30] MEDS ORDERED: LACTULOSE SYRUP 20 GM/30 ML CUP PO PRN (05:30)
[2017-03-30] MEDS ORDERED: SODIUM CHLORIDE 0.9% FLUSH 10 ML FLUSH IV FLUSH PRN (05:30)
[2017-03-30] MEDS ORDERED: ACETAMINOPHEN 1000 MG/100 ML VIAL IV PRN (05:30)
[2017-03-30] MEDS ORDERED: guaiFENesin SOLUTION 200 MG/10 ML CUP PO PRN (05:30)
--- NOTE | 2017-03-30 05:37 | HHI.HP ---
[facility] Primary Care Physician Unknown Admission Diagnosis Diagnoses: (1) Sepsis Diagnosis: Principal (2) Chronic respiratory failure Diagnosis: Principal (3) Permanent vegetative state Diagnosis: Principal (4) Seizure disorder Diagnosis: Principal (5) History of DVT (deep vein thrombosis) Diagnosis: Principal Travel History International Travel<30 Days: No Contact w/Intl Traveler <30 Da: No Traveled to Known Affected Are: No History of Present Illness This is an unfortunate 31-year-old male with PMH of Traumatic Brain Injury and Persistent Vegetative State, s/p Trach/PEG, h/o DVT on Coumadin, Recurrent PNA/ Sepsis and Seizure Disorder who was brought to the ER secondary to fever and tachycardia. Multiple admissions for same, s/p treatment for Sepsis and returns within 24hrs for readmission due to recurrent symptoms. Most recent admit 03/21-03/29/17 for Sepsis/PNA, s/p eval by ID w/ completion of antibiotics. Shortly after arrival, developed fever/chills and tachycardia and sent back to ER. On arrival here, BP 142/88, HR 109, O2 sat 100% on trach, Temp 101.0 rectal. WBC 14.7, WBC 6.5 on 03/29/17. Chemistry unremarkable. Lactic Acid 2.4. CXR with no definite infiltrate. Abdominal X-ray with diffusely dilated loops of bowel. S/p Blood Cultures in ER. Review of Systems ROS: Unable to obtain secondary to persistent vegetative state. Past Family Social History Past Medical History PMH: Traumatic Brain Injury and Persistent Vegetative State, s/p Trach/PEG, h/ o DVT on Coumadin, Recurrent PNA/Sepsis and Seizure Disorder Past Surgical History PAST SURGICAL HISTORY: Tracheostomy, PEG Tube Allergies: Coded Allergies: haloperidol (Unverified Adverse Reaction, Severe, Seizures, 03/30/17) Family History PAST FAMILY HISTORY: Reviewed. No h/o DM or CAD Social History PAST SOCIAL HISTORY: Negative friable, tobacco or drugs. Physical Exam Vital Signs Vital Signs Date Time Temp Pulse Resp B/P (MAP) Pulse Ox O2 Delivery O2 Flow Rate FiO2 9/24/17 04:25 28 03/30/17 03:25 101.0 109 28 142/88 (106) 100 Physical Exam PE: GENERAL: Young black male in no acute distress, vegetative state, at baseline. HEENT: PERRLA, EOMI. No scleral icterus or conjunctival pallor. No lid lag or facial droop. Trach in place CARDIOVASCULAR: Regular rate and rhythm. No obvious murmurs to auscultation. No chest tenderness to palpation. RESPIRATORY: No obvious rhonchi or wheezing. Clear to auscultation. Breath sounds equal bilaterally. GASTROINTESTINAL: Abdomen soft, non-tender, nondistended. BS normal. PEG tube in place. MUSCULOSKELETAL: Extremities without clubbing, cyanosis, or edema. No obvious deformities. NEUROLOGICAL: Awake, alert and oriented x4. No focal neurologic deficits. Moving both upper and lower extremities spontaneously. Laboratory Laboratory Tests Test 03/30/17 04:00 White Blood Count 14.7 Red Blood Count 4.17 Hemoglobin 12.7 Hematocrit 38.7 Mean Corpuscular Volume 92.8 Mean Corpuscular Hemoglobin 30.4 Mean Corpuscular Hemoglobin Concent 32.8 Red Cell Distribution Width 13.5 Platelet Count 364 Mean Platelet Volume 10.1 Neutrophils (%) (Auto) 85.5 Lymphocytes (%) (Auto) 7.0 Monocytes (%) (Auto) 6.6 Eosinophils (%) (Auto) 0.7 Basophils (%) (Auto) 0.2 Neutrophils # (Auto) 12.6 Lymphocytes # (Auto) 1.0 Monocytes # (Auto) 1.0 Eosinophils # (Auto) 0.1 Basophils # (Auto) 0.0 CBC Comment AUTO DIFF Differential Comment Blood Urea Nitrogen 12 Creatinine 0.84 Random Glucose 119 Total Protein 8.5 Albumin 3.7 Calcium Level 9.2 Magnesium Level 2.3 Alkaline Phosphatase 91 Aspartate Amino Transf (AST/SGOT) 25 Alanine Aminotransferase (ALT/SGPT) 60 Total Bilirubin 0.2 Sodium Level 137 Potassium Level 4.0 Chloride Level 101 Carbon Dioxide Level 27.6 Anion Gap 8 Estimat Glomerular Filtration Rate 130 Lactic Acid Level 2.4 Troponin I LESS THAN 0.02 Date/Time Source Procedure Growth Status 03/30/17 04:00 Blood Peripheral Aerobic Blood Culture Pending Received 03/30/17 04:00 Blood Peripheral Anaerobic Blood Culture Pending Received Result Diagram: 9/24/17 0400 9/24/17 0400 Caprini VTE Risk Assessment Caprini VTE Risk Assessment: Mod/High Risk (score >= 2) Caprini Risk Assessment Model Point Value = 1 Point Value = 2 Point Value = 3 Point Value = 5 Age 41-60 Minor surgery BMI > 25 kg/m2 Swollen legs Varicose veins or History of unexplained or recurrent spontaneous Oral contraceptives or hormone replacement Sepsis (< 1 month) Serious lung disease, including pneumonia (< 1 month) Abnormal pulmonary function Acute myocardial infarction Congestive heart failure (< 1 month) History of inflammatory bowel disease Medical patient at bed rest Age 61-74 Arthroscopic surgery Major open surgery (> 45 min) Laparoscopic surgery (> 45 min) Malignancy Confined to bed (> 72 hours) Immobilizing plaster cast Central venous access Age >= 75 History of VTE Family history of VTE Factor V Leiden Prothrombin [id number] Lupus anticoagulant Anticardiolipin antibodies Elevated serum homocysteine Heparin-induced thrombocytopenia Other congenital or acquired thrombophilia Stroke (< 1 month) Elective arthroplasty Hip, pelvis, or leg fracture Acute spinal cord injury (< 1 month) Prophylaxis Regimen Total Risk Factor Score Risk Level Prophylaxis Regimen 0-1 Low Early ambulation 2 Moderate Order ONE of the following: *Sequential Compression Device (SCD) *Heparin 5000 units SQ BID 3-4 Higher Order ONE of the following medications: *Heparin 5000 units SQ TID *Enoxaparin/Lovenox 40 mg SQ daily (WT < 150 kg, CrCl > 30 mL/min) *Enoxaparin/Lovenox 30 mg SQ daily (WT < 150 kg, CrCl > 10-29 mL/min) *Enoxaparin/Lovenox 30 mg SQ BID (WT < 150 kg, CrCl > 30 mL/min) AND/OR *Sequential Compression Device (SCD) 5 or more Highest Order ONE of the following medications: *Heparin 5000 units SQ TID (Preferred with Epidurals) *Enoxaparin/Lovenox 40 mg SQ daily (WT < 150 kg, CrCl > 30 mL/min) *Enoxaparin/Lovenox 30 mg SQ daily (WT < 150 kg, CrCl > 10-29 mL/min) *Enoxaparin/Lovenox 30 mg SQ BID (WT < 150 kg, CrCl > 30 mL/min) AND *Sequential Compression Device (SCD) Assessment and Plan Problem List: (1) Sepsis ICD Code: A41.9 - Sepsis, unspecified organism Status: Resolved (2) Chronic respiratory failure ICD Code: J96.10 - Chronic respiratory failure, unspecified whether with hypoxia or hypercapnia (3) History of DVT (deep vein thrombosis) ICD Code: Z86.718 - Personal history of other venous thrombosis and embolism Status: Acute (4) Permanent vegetative state ICD Code: R40.3 - Persistent vegetative state Status: Acute (5) Seizure disorder ICD Code: G40.909 - Epilepsy, unspecified, not intractable, without status epilepticus Assessment and Plan A/P: 1. Sepsis: Recurrent, multiple admissions for same. Unclear source. Recent admit 03/21-03/29/17 for same, s/p completion of IV Abx and eval by ID. Temp 102.2 rectal, WBC 14.7, previously 6.5 on 03/29/17. CXR w/ no acute findings, images reviewed by me. U/a pending. S/p Blood Cultures in ER. Re-consult ID for further recommendations as unclear if infectious etiology. H/o Pseudomonas PNA on 03/23/17, cultures otherwise negative. 2. Chronic Respiratory Failure: S/p Trach, O2 sat stable at 100% on T-piece. CXR w/ no acute findings, images reviewed by me. Resume home DuoNeb, Tobra Neb 3. H/o DVT: on Eliquis, will continue. 4. 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 Chronic. At baseline. 5. Seizure Disorder: No seizure activity noted. Resume home medications. 6. DVT Prophylaxis: Continue home Eliquis 7. Social work for d/c planning as needed. 8. Case discussed w/ ER physician at length. Physician Certification 2 Midnight Certification Type: Admission for Inpatient Services Order for Inpatient Services The services are ordered in accordance with Medicare regulations or non- Medicare payer requirements, as applicable. In the case of services not specified as inpatient-only, they are appropriately provided as inpatient services in accordance with the 2-midnight benchmark. Estimated LOS (days): 2 days is the estimated time the patient will need to remain in the hospital, assuming treatment plan goals are met and no additional complications. Post-Hospital Plan: Not yet determined Marly Canseco MD Mar 30, 2017 05:37
[2017-03-30] MEDS ORDERED: Vancomycin Consult Pharmacy 1 EA OTHER SCH (05:45)
[2017-03-30] MEDS: hydrALAZINE HCL 50 MG TAB PO SCH ×3 (06:00→21:21)
[2017-03-30] MEDS: PROPRANOLOL HCL 20 MG TAB PEG SCH ×4 (06:00→23:04)
[2017-03-30] MEDS ORDERED: VANCOMYCIN 1,000 MG/NS 250 ML IV ONE ×2 (06:00)
[2017-03-30 06:06] LABS: PLATELET ESTIMATE SMEAR NORMAL (NORMAL); PLATELET MORPHOLOGY NORMAL (NORMAL); SCAN/DIFF AUTO DIFF CONFIRMED
[2017-03-30 06:11] LABS: LACTIC ACID GHOST NOT REPORTABLE
[2017-03-30] MEDS ORDERED: CHLORHEXIDINE GLUCONATE 2 % 1 PACK (2 CLOTHS) TOP PRN (06:30)
[2017-03-30] MEDS ORDERED: MISCELLANEOUS NURSING INFORMATION XX SCH (06:30)
[2017-03-30] MEDS: SODIUM CHLOR 0.9% 1000 ML INJ 1,000 ML IV SCH ×3 (06:35→23:04)
[2017-03-30] MEDS: CEFEPIME INJ 1,000 MG in SODIUM CHLORIDE 0.9% INJ 100 ML IV SCH ×2 (06:35→17:09)
[2017-03-30] MEDS: LORazepam 2 MG/ML VIAL IV PUSH PRN ×2 (06:53→09:10)
[2017-03-30] MEDS: RESP: ALBUTEROL 2.5 MG/IPRATROPIUM 0.5 MG NEB (SCH) INH ×3 (07:24→20:37)
[2017-03-30] MEDS: HYOSCYAMINE 0.125 MG TAB PO SCH ×5 (07:59→23:03)
[2017-03-30] MEDS: APIXABAN 5 MG TABLET G-TUBE SCH ×3 (08:00→21:22)
[2017-03-30] MEDS: levETIRAcetam 500 MG TAB G-TUBE SCH ×2 (08:00→21:21)
[2017-03-30] MEDS: RESP: TOBRAMYCIN SULFATE 80 MG/2 ML NEB NEB SCH ×2 (08:00→20:57)
[2017-03-30] MEDS: CIPROFLOXACIN 0.3% OPTH SOLN 2.5 ML BTL EACH EYE SCH ×5 (08:00→22:40)
[2017-03-30] MEDS: LORATADINE 10 MG TAB G-TUBE SCH (08:00)
[2017-03-30] MEDS: FAMOTIDINE 20 MG TAB G-TUBE SCH (08:01)
[2017-03-30] MEDS: BACLOFEN 20 MG TAB G-TUBE SCH ×4 (08:01→21:21)
[2017-03-30] MEDS: DOCUSATE SODIUM 50 MG/SENNA 8.6 MG TAB PO SCH ×2 (08:01→21:00)
[2017-03-30] MEDS ORDERED: DOCUSATE SODIUM 50 MG/SENNA 8.6 MG TAB PEG SCH (09:00)
[2017-03-30] MEDS: SODIUM CHLORIDE 0.9% FLUSH 10 ML FLUSH IV FLUSH SCH ×2 (09:00→21:00)
--- NOTE | 2017-03-30 09:42 | PD.CONS ---
History of Present Illness Service Infectious disease Consult Requested By Dr Araiza Reason for Consult Evaluate patient with recurrent fevers Primary Care Physician Unknown Diagnoses: History of Present Illness Patient seen and examined. Records reviewed. Patient is a 31-year-old male, well-known to me, recently discharged from the hospital March 29, readmitted for recurrent fevers. This is his third admission since February. He was admitted February 21 and at that time he was found to have viridans strep sepsis, as well as Pseudomonas pneumonia. Required ventilatory support at that time, and he improved. He has a chronic trach. At one time he required bronchoscopy during that hospitalization for hemoptysis, and that resolved, and no active bleeding was seen during bronchoscopy. He completed treatment for his bacteremia and pneumonia, and he was discharged back to the long-term on March 20. He was readmitted for fevers, and again received treatment for Pseudomonas pneumonia. He was stable, and went back to the long-term on March 29, and came back because of fevers. His temperature was up to 102+, he is tachycardic between 140-150. He had a chest x-ray which was limited but there was no obvious infiltrates. He did not have any central line. He has a condom catheter in place. There is been no real change with his neurological status. There is also been no mention of any diarrhea. His WBC was up to 14. He is not on pressors. He is on T piece with good sats. He has a lot of drooling from his mouth. His neurological status remains the same, and that he is unresponsive, keeps his eyes closed, and very spastic and rigid in his extremities. Infectious disease consultation has been requested to evaluate the patient with recurrent fevers. Review of Systems ROS Limitations: Clinical Condition, Intubated, Unresponsive Past Family Social History Allergies: Coded Allergies: haloperidol (Unverified Adverse Reaction, Severe, Seizures, 03/30/17) Past Medical History Chronic tracheostomy Recurrent aspiration pneumonia History of upper extremity DVT [place] hypertension Hyperlipidemia Diabetes History of pancreatitis and pseudocyst History of multidrug resistant infections including MRSA, and ESBL positive organism Recent treatment for viridans strep bacteremia related to a midline Past Surgical History Status post trach and revision Status post G-tube placement and revision Previous bronchoscopy Active Ordered Medications Tylenol Albuterol Norvasc Eliquis Lioresal Dulcolax Cefepime Pepcid Robitussin Hydralazine Levsin Lactulose Keppra Claritin Ativan MOM Morphine Zofran Inderal Sanam-Colace Senokot Family History Unremarkable Social History residential resident No smoking No alcohol use No illicit drug He is in a chronic vegetative state Physical Exam Vital Signs Vital Signs Date Time Temp Pulse Resp B/P (MAP) Pulse Ox O2 Delivery O2 Flow Rate FiO2 03/30/17 08:15 127 154/77 (102) 100 03/30/17 07:36 102.5 151 162/84 (110) 03/30/17 07:25 100 50 03/30/17 07:03 155 50 165/83 (110) 100 Blow-by 12.00 03/30/17 06:45 170 60 187/85 (119) 100 Blow-by 10.00 03/30/17 06:00 154 55 204/102 (136) 100 Blow-by 10.00 03/30/17 05:34 100 Non-Rebreather 12.00 100 03/30/17 05:30 140 36 150/90 (110) 100 Blow-by 10.00 03/30/17 04:45 136 36 154/80 (104) 100 Blow-by 10.00 03/30/17 04:25 28 03/30/17 03:55 100 Blow-by 10.00 03/30/17 03:25 101.0 109 28 142/88 (106) 100 Physical Exam GENERAL: Patient is a well-nourished, well-developed male, keeps eyes closed , no interaction, not in respiratory distress, has chronic trach, drooling SKIN: Warm and dry. No generalized rash, no ecchymoses and no evidence of embolic lesions. HEAD: Atraumatic. Normocephalic. No temporal wasting, or tenderness. EYES: [place] conjunctiva. No petechia or hemorrhage. Pupils equal, round and reactive to light. No scleral icterus. No injection or drainage. EARS, NOSE AND THROAT: Nose without bleeding or purulent nasal discharge. Moist oral mucosa, has a lot of oral secretions coming out of his mouth. NECK: Trachea midline. Supple and no meningeal signs CARDIOVASCULAR: Tachycardic, regular rate and rhythm. No murmurs, rubs or gallops heard RESPIRATORY: Clear to auscultation. Breath sounds equal bilaterally. No rales , wheezing or rhonchi. Decreased at the bases. ABDOMEN: Soft, nondistended, bowel sounds present and normoactive. No reaction to palpation, no guarding. No organomegaly. PEG site ok EXTREMITIES: No clubbing, cyanosis, or edema. No joint effusion. Well perfused and warm. NEUROLOGICAL: Keeps eyes, closed, no interaction. Very spastic UE and LE. Both feet plantar flexed. PSYCHIATRIC: Unable to assess LINE: No evidence of infection : [place] cath in place, urine looks clear Laboratory Laboratory Tests Test 03/30/17 04:00 03/30/17 07:35 White Blood Count 14.7 Red Blood Count 4.17 Hemoglobin 12.7 Hematocrit 38.7 Mean Corpuscular Volume 92.8 Mean Corpuscular Hemoglobin 30.4 Mean Corpuscular Hemoglobin Concent 32.8 Red Cell Distribution Width 13.5 Platelet Count 364 Mean Platelet Volume 10.1 Neutrophils (%) (Auto) 85.5 Lymphocytes (%) (Auto) 7.0 Monocytes (%) (Auto) 6.6 Eosinophils (%) (Auto) 0.7 Basophils (%) (Auto) 0.2 Neutrophils # (Auto) 12.6 Lymphocytes # (Auto) 1.0 Monocytes # (Auto) 1.0 Eosinophils # (Auto) 0.1 Basophils # (Auto) 0.0 CBC Comment AUTO DIFF Differential Comment AUTO DIFF CONFIRMED Platelet Estimate NORMAL Platelet Morphology Comment NORMAL Blood Urea Nitrogen 12 Creatinine 0.84 Random Glucose 119 Total Protein 8.5 Albumin 3.7 Calcium Level 9.2 Magnesium Level 2.3 Alkaline Phosphatase 91 Aspartate Amino Transf (AST/SGOT) 25 Alanine Aminotransferase (ALT/SGPT) 60 Total Bilirubin 0.2 Sodium Level 137 Potassium Level 4.0 Chloride Level 101 Carbon Dioxide Level 27.6 Anion Gap 8 Estimat Glomerular Filtration Rate 130 Lactic Acid Level 2.4 3.4 Troponin I LESS THAN 0.02 Date/Time Source Procedure Growth Status 03/30/17 04:00 Blood Peripheral Aerobic Blood Culture Pending Received 03/30/17 04:00 Blood Peripheral Anaerobic Blood Culture Pending Received Result Diagram: 03/30/17 0400 03/30/17 0400 Imaging RADIOLOGY STUDIES/FILMS REVIEWED Chest X-Ray 03/30/17 2104 Signed Impressions: Service Date/Time: Thursday, March 30, 2017 04:05 - CONCLUSION: Technical limitations due to patient motion. No definite infiltrates seen. Zachariah Jiménez MD Abdomen X-Ray 03/30/17 0000 Signed Impressions: Service Date/Time: Thursday, March 30, 2017 04:37 - CONCLUSION: Diffusely dilated loops of bowel. Zachariah Jiménez MD Assessment and Plan Assessment and Plan IMPRESSION Recurrent fevers, possible sepsis - CXR read as clear - UA not done - WBC mildly elevated - no central lines - previous Rx for PSAE PNA - not in distress - ?plugging - ?central fever (usually this is more persistent and not intermittent) Chronic trach Chronic vegetative state due to anoxic injury RECOMMENDATION Continue Cefepime Repeat CXR tomorrow Consider pulmonary evaluation and input for possible recurrent plugging Follow C/S and adjust Abx Follow temps Monitor progress ESR and CRP I will follow along with you Thank you for this consultation Discussed Condition With D/W Dr Luz D/W RN Michelle Reynolds MD Mar 30, 2017 09:42
[2017-03-30] MEDS ORDERED: ACETAMINOPHEN 325 MG TAB PO PRN (10:00)
[2017-03-30] MEDS ORDERED: METOPROLOL TARTRATE 25 MG TAB PO PRN (10:00)
[2017-03-30] MEDS ORDERED: oxyCODONE/ACETAMINOPHEN 5 MG/325 MG TAB PO PRN (10:00)
--- NOTE | 2017-03-30 10:07 | HHI.PR ---
Subjective Remarks This is an unfortunate 31-year-old male with PMH of Traumatic Brain Injury and Persistent Vegetative State, s/p Trach/PEG, h/o DVT on Coumadin, Recurrent PNA/ Sepsis and Seizure Disorder who was brought to the ER secondary to fever and tachycardia. Multiple admissions for same, s/p treatment for Sepsis and returns within 24hrs for readmission due to recurrent symptoms. Most recent admit 03/21-03/29/17 for Sepsis/PNA, s/p eval by ID w/ completion of antibiotics. Shortly after arrival, developed fever/chills and tachycardia and sent back to ER. On arrival here, BP 142/88, HR 109, O2 sat 100% on trach, Temp 101.0 rectal. WBC 14.7, WBC 6.5 on 03/29/17. Chemistry unremarkable. Lactic Acid 2.4. CXR with no definite infiltrate. Abdominal X-ray with diffusely dilated loops of bowel. S/p Blood Cultures in ER. POSSIBLE ASPIRATION AT [facility] FEVERS NOTED POSSIBLE UPPER GI BLEED DW RN AND ID AM CHEST XRAY AM LABS Objective Vitals Vital Signs Date Time Temp Pulse Resp B/P (MAP) Pulse Ox O2 Delivery O2 Flow Rate FiO2 03/30/17 08:15 127 154/77 (102) 100 03/30/17 07:36 102.5 151 162/84 (110) 03/30/17 07:25 100 50 03/30/17 07:03 155 50 165/83 (110) 100 Blow-by 12.00 03/30/17 06:45 170 60 187/85 (119) 100 Blow-by 10.00 03/30/17 06:00 154 55 204/102 (136) 100 Blow-by 10.00 03/30/17 05:34 100 Non-Rebreather 12.00 100 03/30/17 05:30 140 36 150/90 (110) 100 Blow-by 10.00 03/30/17 04:45 136 36 154/80 (104) 100 Blow-by 10.00 03/30/17 04:25 28 03/30/17 03:55 100 Blow-by 10.00 03/30/17 03:25 101.0 109 28 142/88 (106) 100 I/O 03/29/17 03/29/17 03/29/17 03/30/1703/30/17 9/24/17 07:00 15:00 23:00 07:00 15:00 23:00 Intake Total 2000 ml Balance 2000 ml Intake IV Total 2000 ml Result Diagram: 03/30/17 0400 03/30/17 0400 Other Results Laboratory Tests Test 03/30/17 04:00 03/30/17 07:35 White Blood Count 14.7 TH/MM3 Red Blood Count 4.17 MIL/MM3 Hemoglobin 12.7 GM/DL Hematocrit 38.7 % Mean Corpuscular Volume 92.8 FL Mean Corpuscular Hemoglobin 30.4 PG Mean Corpuscular Hemoglobin Concent 32.8 % Red Cell Distribution Width 13.5 % Platelet Count 364 TH/MM3 Mean Platelet Volume 10.1 FL Neutrophils (%) (Auto) 85.5 % Lymphocytes (%) (Auto) 7.0 % Monocytes (%) (Auto) 6.6 % Eosinophils (%) (Auto) 0.7 % Basophils (%) (Auto) 0.2 % Neutrophils # (Auto) 12.6 TH/MM3 Lymphocytes # (Auto) 1.0 TH/MM3 Monocytes # (Auto) 1.0 TH/MM3 Eosinophils # (Auto) 0.1 TH/MM3 Basophils # (Auto) 0.0 TH/MM3 CBC Comment AUTO DIFF Differential Comment AUTO DIFF CONFIRMED Platelet Estimate NORMAL Platelet Morphology Comment NORMAL Blood Urea Nitrogen 12 MG/DL Creatinine 0.84 MG/DL Random Glucose 119 MG/DL Total Protein 8.5 GM/DL Albumin 3.7 GM/DL Calcium Level 9.2 MG/DL Magnesium Level 2.3 MG/DL Alkaline Phosphatase 91 U/L Aspartate Amino Transf (AST/SGOT) 25 U/L Alanine Aminotransferase (ALT/SGPT) 60 U/L Total Bilirubin 0.2 MG/DL Sodium Level 137 MEQ/L Potassium Level 4.0 MEQ/L Chloride Level 101 MEQ/L Carbon Dioxide Level 27.6 MEQ/L Anion Gap 8 MEQ/L Estimat Glomerular Filtration Rate 130 ML/MIN Lactic Acid Level 2.4 mmol/L 3.4 mmol/L Troponin I LESS THAN 0.02 NG/ML Imaging Last Impressions Chest X-Ray 03/30/17 0349 Signed Impressions: Service Date/Time: Thursday, March 30, 2017 04:05 - CONCLUSION: Technical limitations due to patient motion. No definite infiltrates seen. Zachariah Jiménez MD Abdomen X-Ray 03/30/17 0000 Signed Impressions: Service Date/Time: Thursday, March 30, 2017 04:37 - CONCLUSION: Diffusely dilated loops of bowel. Zachariah Jiménez MD Objective Remarks GENERAL: COMPLETELY NONVERBAL SKIN: Warm and dry. HEAD: Atraumatic. Normocephalic. EYES: Pupils equal and round. No scleral icterus. No injection or drainage. ENT: No nasal bleeding or discharge. Mucous membranes pink and moist. NECK: Trachea midline. No JVD. TRACHEOSTOMY IN PLACE ON T-TUBE CARDIOVASCULAR: Regular rate and rhythm. S1,S2 NO S3 OR S4 RESPIRATORY: No accessory muscle use. COARSE BREATH SOUNDS BL, RHONCHI. Breath sounds equal bilaterally. GASTROINTESTINAL: Abdomen soft, non-tender, nondistended. Hepatic and splenic margins not palpable. PEG--CONDOM CATHETER MUSCULOSKELETAL: Extremities without clubbing, cyanosis, or edema. No obvious deformities. NEUROLOGICAL: NOT Awake and alert. obvious cranial nerve deficits. NOT ABLE TO ASSESS MOTOR OR SENSORY. PSYCHIATRIC: INAppropriate mood and affect; insight and judgment ABnormal. NONVERBAL UNABLE TO ASSESS Medications and IVs Current Medications Sodium Chloride 1,000 ml @ 2,000 mls/hr Q30M ONCE IV Last administered on 03/30 04:00; Start 03/30/17 at 04:00; Stop 03/30/17 at 04:29; Status DC Ondansetron HCl (Zofran Inj) 4 mg ONCE ONCE IV PUSH Last administered on 05:25; Start 03/30/17 at 04:00; Stop 03/30/17 at 04:01; Status DC Sodium Chloride 1,000 ml @ 2,000 mls/hr Q30M ONCE IV Last administered on 03/30 04:15; Start 03/30/17 at 04:15; Stop 03/30/17 at 04:44; Status DC Lorazepam (Ativan Inj) 1 mg ONCE ONCE IV PUSH Last administered on 03/30/17 05:24; Start 03/30/17 at 04:30; Stop 03/30/17 at 04:31; Status DC Amlodipine Besylate (Norvasc) 10 mg DAILY PEG ; Start 03/30/17 at 09:00 Apixaban (Eliquis) 5 mg BID G-TUBE ; Start 03/30/17 at 09:00 Atropine Sulfate (Atropine 1% Opth Soln) 1 drop Q12HR PRN SL For mild/moderate secretions; Start 03/30/17 at 05:30 Baclofen (Lioresal) 20 mg TID G-TUBE ; Start 03/30/17 at 09:00 Bisacodyl (Dulcolax Ec) 5 mg DAILY PRN PO CONSTIPATION; Start 03/30/17 at 05:30 ; Status Cancel Ciprofloxacin HCl (Ciloxan 0.3% Opth Soln) 1 drop Q4HR EACH EYE ; Start at 08:00 Famotidine (Pepcid) 40 mg DAILY G-TUBE ; Start 03/30/17 at 09:00 Guaifenesin (Robitussin Liq) 100 mg Q4H PRN PO COUGH; Start 03/30/17 at 05:30 Hydralazine HCl (Apresoline) 50 mg Q8HR PO ; Start 03/30/17 at 06:00 Hyoscyamine Sulfate (Levsin) 0.125 mg Q4HR PO ; Start 03/30/17 at 08:00 Albuterol/ Ipratropium (Duoneb Neb) 1 ampule Q4HR NEB INH ; Start 03/30/17 at 08:00 Levetriacetam (Keppra) 1,000 mg BID G-TUBE ; Start 03/30/17 at 09:00 Lorazepam (Ativan) 1 mg Q4H PRN G-TUBE for severe anxiety or dyspnea; Start at 05:30 Propranolol HCl (Inderal) 20 mg Q6HR PEG ; Start 03/30/17 at 06:00 Senna/Docusate Sodium (Sanam-Colace) 2 tab BID PEG ; Start 03/30/17 at 09:00; Status Cancel Tobramycin Sulfate (Tobramycin Neb) 80 mg Q12HR NEB NEB ; Start 03/30/17 at 08: 00 Loratadine (Claritin) 5 mg DAILY G-TUBE ; Start 03/30/17 at 09:00 Sodium Chloride 1,000 ml @ 100 mls/hr Q10H IV Last administered on 03/30/17t 06:35; Start 03/30/17 at 05:20 Sodium Chloride (NS Flush) 2 ml UNSCH PRN IV FLUSH FLUSH AFTER USING IV ACCESS ; Start 03/30/17 at 05:30 Sodium Chloride (NS Flush) 2 ml BID IV FLUSH Last administered on 03/30/17 09: 00; Start 03/30/17 at 09:00 Ondansetron HCl (Zofran Inj) 4 mg Q6H PRN IVP NAUSEA OR VOMITING Last administered on 03/30/17 09:10; Start 03/30/17 at 05:30 Morphine Sulfate (Morphine Inj) 1 mg Q3H PRN IV PUSH Pain 3-5; Start 03/30/17 at 05:30 Morphine Sulfate (Morphine Inj) 2 mg Q3H PRN IV PUSH Pain 6-10; Start 03/30/17 at 05:30 Acetaminophen (Ofirmev 1000 Mg/ 100 ml Inj) 1,000 mg Q6H PRN IV FEVER; Start at 05:30 Senna/Docusate Sodium (Sanam-Colace) 1 tab BID PO ; Start 03/30/17 at 09:00 Magnesium Hydroxide (Milk Of Magnesia Liq) 30 ml Q12H PRN PO MILD - MODERATE CONSTIPATION; Start 03/30/17 at 05:30 Sennosides (Senokot) 17.2 mg Q12H PRN PO MODERATE - SEVERE CONSTIPATION; Start 03/30/17 at 05:30 Bisacodyl (Dulcolax Supp) 10 mg DAILY PRN RECTAL SEVERE CONSITIPATION; Start at 05:30 Lactulose (Lactulose Liq) 30 ml DAILY PRN PO SEVERE CONSITIPATION; Start at 05:30 Pharmacy Profile Note 0 ml @ 0 mls/hr UNSCH OTHER ; Start 03/30/17 at 05:45 Cefepime HCl 1000 mg/Sodium Chloride 100 ml @ 200 mls/hr Q12H IV Last administered on 03/30/17 06:35; Start 03/30/17 at 06:00 Vancomycin HCl 1000 mg/Sodium Chloride 250 ml @ 250 mls/hr ONCE ONCE IV Last administered on 03/30/17 07:18; Start 03/30/17 at 06:00; Stop 03/30/17 at 06:59 ; Status DC Lorazepam (Ativan Inj) 1 mg Q2H PRN IV PUSH AGITATION Last administered on 9/24 /17at 09:10; Start 03/30/17 at 06:30 Miscellaneous Information 1 Q361D XX ; Start 03/30/17 at 06:30 Chlorhexidine Gluconate (Chlorhexidine 2% Cloth) 3 pack Taper DAILY@04 TOP ; Start 03/31/17 at 04:00; Stop 03/27/18 at 03:59 Chlorhexidine Gluconate (Chlorhexidine 2% Cloth) 3 pack UNSCH PRN TOP HYGIENIC CARE; Start 03/30/17 at 06:30 Urinary Catheter: No A/P Problem List: (1) Sepsis ICD Code: A41.9 - Sepsis, unspecified organism Status: Resolved (2) Chronic respiratory failure ICD Code: J96.10 - Chronic respiratory failure, unspecified whether with hypoxia or hypercapnia (3) History of DVT (deep vein thrombosis) ICD Code: Z86.718 - Personal history of other venous thrombosis and embolism Status: Acute (4) Permanent vegetative state ICD Code: R40.3 - Persistent vegetative state Status: Acute (5) Seizure disorder ICD Code: G40.909 - Epilepsy, unspecified, not intractable, without status epilepticus Assessment and Plan 1. Sepsis: Recurrent, multiple admissions for same. Unclear source. Recent admit 03/21-03/29/17 for same, s/p completion of IV Abx and eval by ID. Temp 102.2 rectal, WBC 14.7, previously 6.5 on 03/29/17. CXR w/ no acute findings, images reviewed by me. U/a pending. S/p Blood Cultures in ER. Re-consult ID for further recommendations as unclear if infectious etiology. H/o Pseudomonas PNA on 03/23/17, cultures otherwise negative. 2. Chronic Respiratory Failure: S/p Trach, O2 sat stable at 100% on T-piece. CXR w/ no acute findings, images reviewed by me. Resume home DuoNeb, Tobra Neb 3. H/o DVT: on Eliquis, will continue. 4. 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 Chronic. At baseline. 5. Seizure Disorder: No seizure activity noted. Resume home medications. 6. DVT Prophylaxis: Continue home Eliquis POSSIBLE ASPIRATION AT NURSING FACILITY FEVERS HX PSEUDOMONAS PNA CHECK GASTROCCULT RESTART TUBE FEEDS SYDNEE RN AND Hudson Mancini DO Mar 30, 2017 10:07
[2017-03-30] MEDS ORDERED: ACETAMINOPHEN 650 MG SUPP RECTAL PRN (10:15)
--- NOTE | 2017-03-30 10:22 | RADRPT ---
EXAM DATE/TIME: 03/30/2017 10:07 [facility] COMPARISON: CHEST SINGLE AP, March 30, 2017, 4:05. INDICATIONS : Pneumonia MEDICAL HISTORY : Hypertension. Seizures SURGICAL HISTORY : Tracheostomy. Gastrostomy. GJ tube placement ENCOUNTER: Subsequent ACUITY: 1 day PAIN SCORE: Non-responsive. LOCATION: chest FINDINGS: Portable AP view of the chest demonstrates cardiac silhouette size at the upper limits for normal. Tr acheostomy remains present. Lungs are underinflated with mild bibasilar opacity. No effusion or pneum othorax is identified. Bones and soft tissues demonstrate no acute finding. CONCLUSION: Underinflation with likely atelectasis at the lung bases. No definite airspace consolidation is ident ified given the technique. Santo Benites MD on March 30, 2017 at 10:20 Board Certified Radiologist. This report was verified electronically.
[2017-03-30] MEDS: ACETAMINOPHEN 650 MG/20.3 ML UDC PO PRN (11:26)
[2017-03-30] MEDS: MORPHINE SULFATE 4 MG/ML INJ IV PUSH PRN ×2 (11:35→23:19)
[2017-03-30] MEDS: VANCOMYCIN INJ 1,250 MG in SODIUM CHLOR 0.9% 250 ML INJ 250 ML IV SCH ×2 (14:25→22:40)
--- NOTE | 2017-03-30 16:07 | RADRPT ---
EXAM DATE/TIME: 03/30/2017 15:46 [facility] COMPARISON: CT ABDOMEN & PELVIS W CONTRAST, December 22, 2016, 21:47. INDICATIONS : Vomiting; fever, abdomen pain. IV CONTRAST: 100 cc Omnipaque 350 (iohexol) IV ORAL CONTRAST: No oral contrast ingested. RADIATION DOSE: 14.80 CTDIvol (mGy) MEDICAL HISTORY : Anoxic brain injury. SURGICAL HISTORY : Trach; J-tube. ENCOUNTER: Initial ACUITY: 1 day PAIN SCALE: 5/10 LOCATION: Bilateral abdomen TECHNIQUE: Volumetric scanning of the abdomen and pelvis was performed. Using automated exposure control and ad justment of the mA and/or kV according to patient size, radiation dose was kept as low as reasonably achievable to obtain optimal diagnostic quality images. DICOM format image data is available electro nically for review and comparison. FINDINGS: The study is degraded by mild motion and streak artifact. LOWER LUNGS: The visualized lower lungs are clear. LIVER: Homogeneous density without lesion. There is no dilation of the biliary tree. No calcified gallston es. SPLEEN: Normal size without lesion. PANCREAS: Within normal limits. KIDNEYS: Normal in size and shape. There is no mass, stone or hydronephrosis. ADRENAL GLANDS: Within normal limits. VASCULAR: There is no aortic aneurysm. BOWEL/MESENTERY: A gastrojejunostomy tube remains in place. There are multiple loops of nondilated air-containing smal l bowel several small air-fluid levels. There is residual contrast in the colon is nondilated. There is a normal appendix. There is no free intraperitoneal air or fluid. ABDOMINAL WALL: Within normal limits. RETROPERITONEUM: There is no lymphadenopathy. BLADDER: No wall thickening or mass. REPRODUCTIVE: Within normal limits. INGUINAL: There is no lymphadenopathy or hernia. MUSCULOSKELETAL: Within normal limits for patient age. CONCLUSION: 1. The gastrojejunostomy tube remains in place. 2. Nonspecific nonobstructive bowel gas pattern which may represent a mild ileus or gastroenteritis. 3. Unremarkable gallbladder. 4. The study is degraded by mild motion and streak artifact. Clayton Mccray MD on March 30, 2017 at 16:02 Board Certified Radiologist. This report was verified electronically.
[2017-03-30] MEDS ORDERED: IOHEXOL 350 MG/ML 10 ML VIAL (for RAD DIAG) IVCONTRAST ONE (16:09)
[2017-03-30 16:42] LABS: BLOOD, URINE SMALL (NEG); GLUCOSE,URINE NEG (NEG); KETONE, URINE 10 mg/dL (NEG); MUCUS URINE FEW /lpf (OCC); NITRITE,URINE NEG (NEG); URINE COLOR YELLOW (YELLW/STRAW)
[2017-03-30 16:44] LABS: COMMENT (UR) CATH-CULT NOT IND; CULTURE IF INDICATED CATH CULTURE NOT IND
--- NOTE | 2017-03-30 18:02 | PD.CONS ---
HPI History of Present Illness This is a 31 year old male who was brought to the ER due to fevers and tachycardia. Patient has had numerous admissions with same symptoms (last admission 03/21-03/29/17). He is s/p recent treatment for sepsis/pneumonia with ID evaluation and antibiotics. PMH significant for TBI and persistent vegetative state, s/p trach/PEG, h/o DVT, recurrent PNA/sepsis and seizure disorder. GI was consulted for possible upper GI bleed. Dark red liquid was suctioned from orotracheal, sent to lab for evaluation, results pending at this time. (Maureen Ta) PFSH Past Medical History -TBI and Persistent Vegetative State -S/p Trach/PEG -History of DVT -Recurrent PNA/Sepsis -Seizure Disorder Past Surgical History -Tracheostomy -PEG Tube (Maureen Ta) Coded Allergies: haloperidol (Unverified Adverse Reaction, Severe, Seizures, 03/30/17) Medications Current Medications Medications (Trade) Dose Ordered Sig/Diane Route PRN Reason Start Time Stop Time Status Last Admin Dose Admin Amlodipine Besylate (Norvasc) 10 mg DAILY PEG 03/30/17 09:00 03/30/17 11:26 Apixaban (Eliquis) 5 mg BID G-TUBE 03/30/17 09:00 Atropine Sulfate (Atropine 1% Opth Soln) 1 drop Q12HR PRN SL For mild/moderate secretions 03/30/17 05:30 Baclofen (Lioresal) 20 mg TID G-TUBE 03/30/17 09:00 03/30/17 17:09 Ciprofloxacin HCl (Ciloxan 0.3% Opth Soln) 1 drop Q4HR EACH EYE 03/30/17 08:00 03/30/17 17:09 Famotidine (Pepcid) 40 mg DAILY G-TUBE 03/30/17 09:00 Guaifenesin (Robitussin Liq) 100 mg Q4H PRN PO COUGH 03/30/17 05:30 Hydralazine HCl (Apresoline) 50 mg Q8HR PO 03/30/17 06:00 03/30/17 14:24 Hyoscyamine Sulfate (Levsin) 0.125 mg Q4HR PO 03/30/17 08:00 03/30/17 14:24 Albuterol/ Ipratropium (Duoneb Neb) 1 ampule Q4HR NEB INH 03/30/17 08:00 03/30/17 12:00 Levetriacetam (Keppra) 1,000 mg BID G-TUBE 03/30/17 09:00 Lorazepam (Ativan) 1 mg Q4H PRN G-TUBE for severe anxiety or dyspnea 03/30/17 05:30 Propranolol HCl (Inderal) 20 mg Q6HR PEG 03/30/17 06:00 03/30/17 17:09 Tobramycin Sulfate (Tobramycin Neb) 80 mg Q12HR NEB NEB 03/30/17 08:00 Loratadine (Claritin) 5 mg DAILY G-TUBE 03/30/17 09:00 Sodium Chloride 1,000 ml @ 100 mls/hr Q10H IV 03/30/17 05:20 03/30/17 06:35 Sodium Chloride (NS Flush) 2 ml UNSCH PRN IV FLUSH FLUSH AFTER USING IV ACCESS 03/30/17 05:30 Sodium Chloride (NS Flush) 2 ml BID IV FLUSH 03/30/17 09:00 03/30/17 09:00 Ondansetron HCl (Zofran Inj) 4 mg Q6H PRN IVP NAUSEA OR VOMITING 03/30/17 05:30 03/30/17 09:10 Morphine Sulfate (Morphine Inj) 1 mg Q3H PRN IV PUSH Pain 3-5 03/30/17 05:30 Morphine Sulfate (Morphine Inj) 2 mg Q3H PRN IV PUSH Pain 6-10 03/30/17 05:30 03/30/17 11:35 Senna/Docusate Sodium (Sanam-Colace) 1 tab BID PO 03/30/17 09:00 Magnesium Hydroxide (Milk Of Magnesia Liq) 30 ml Q12H PRN PO MILD - MODERATE CONSTIPATION 03/30/17 05:30 Sennosides (Senokot) 17.2 mg Q12H PRN PO MODERATE - SEVERE CONSTIPATION 03/30/17 05:30 Bisacodyl (Dulcolax Supp) 10 mg DAILY PRN RECTAL SEVERE CONSITIPATION 03/30/17 05:30 Lactulose (Lactulose Liq) 30 ml DAILY PRN PO SEVERE CONSITIPATION 03/30/17 05:30 Pharmacy Profile Note 0 ml @ 0 mls/hr UNSCH OTHER 03/30/17 05:45 Cefepime HCl 1000 mg/Sodium Chloride 100 ml @ 200 mls/hr Q12H IV 03/30/17 06:00 03/30/17 17:09 Lorazepam (Ativan Inj) 1 mg Q2H PRN IV PUSH AGITATION 03/30/17 06:30 03/30/17 09:10 Miscellaneous Information 1 Q361D XX 03/30/17 06:30 Chlorhexidine Gluconate (Chlorhexidine 2% Cloth) 3 pack Taper DAILY@04 TOP 03/31/17 04:00 03/27/18 03:59 Chlorhexidine Gluconate (Chlorhexidine 2% Cloth) 3 pack UNSCH PRN TOP HYGIENIC CARE 03/30/17 06:30 Clonidine (Catapres) 0.1 mg Q6H PRN PO SBP>160, DBP>90 03/30/17 10:00 Metoprolol Tartrate (Lopressor) 25 mg BID PRN PO HR>110 03/30/17 10:00 Potassium Bicarb/ Potassium Chloride (K-Lyte Cl Eff) 25 meq Q12HR PEG 03/30/17 21:00 Acetaminophen (Tylenol 650 Mg/ 20 ml Liq) 650 mg Q6H PRN PO FEVER 03/30/17 10:15 03/30/17 11:26 Acetaminophen (Tylenol Supp) 650 mg Q6H PRN RECTAL FEVER 03/30/17 10:15 Vancomycin HCl 1250 mg/Sodium Chloride 262.5 ml @ 250 mls/hr Q8H IV 03/30/17 15:00 03/30/17 14:25 Miscellaneous Information SPECIFIC LAB TO BE JEWEL... ONCE ONCE .XX 03/31/17 06:45 03/31/17 06:46 Family History Noncontributory Social History No ETOH or tobacco use. (Maureen Ta) Review of Systems ROS Unable to assess (Maureen Ta) GI Exam Vitals I&O Vital Signs Date Time Temp Pulse Resp B/P (MAP) Pulse Ox O2 Delivery O2 Flow Rate FiO2 03/30/17 16:37 98 T-piece 5.00 28 03/30/17 16:00 99.9 113 11 139/64 (89) 100 03/30/17 16:00 113 03/30/17 14:00 112 03/30/17 12:00 100.1 97 16 134/69 (90) 99 03/30/17 12:00 97 03/30/17 09:00 162 03/30/17 08:15 127 154/77 (102) 100 03/30/17 07:36 102.5 151 162/84 (110) 03/30/17 07:25 100 50 03/30/17 07:03 155 50 165/83 (110) 100 Blow-by 12.00 03/30/17 06:45 170 60 187/85 (119) 100 Blow-by 10.00 03/30/17 06:00 154 55 204/102 (136) 100 Blow-by 10.00 03/30/17 05:34 100 Non-Rebreather 12.00 100 03/30/17 05:30 140 36 150/90 (110) 100 Blow-by 10.00 03/30/17 04:45 136 36 154/80 (104) 100 Blow-by 10.00 03/30/17 04:25 28 03/30/17 03:55 100 Blow-by 10.00 03/30/17 03:25 101.0 109 28 142/88 (106) 100 I/O 03/29/17 03/29/17 03/29/17 03/30/17 03/30/17 03/30/17 07:00 15:00 23:00 07:00 15:00 23:00 Intake Total 2000 ml 350 ml Balance 2000 ml 350 ml Intake IV Total 2000 ml 350 ml Imaging Last Impressions Chest X-Ray 03/30/17 0349 Signed Impressions: Service Date/Time: Thursday, March 30, 2017 04:05 - CONCLUSION: Technical limitations due to patient motion. No definite infiltrates seen. Zachariah Jiménez MD Abdomen/Pelvis CT 03/30/17 0000 Signed Impressions: Service Date/Time: Thursday, March 30, 2017 15:46 - CONCLUSION: 1. The gastrojejunostomy tube remains in place. 2. Nonspecific nonobstructive bowel gas pattern which may represent a mild ileus or gastroenteritis. 3. Unremarkable gallbladder. 4. The study is degraded by mild motion and streak artifact. Clayton Mccray MD Abdomen X-Ray 03/30/17 0000 Signed Impressions: Service Date/Time: Thursday, March 30, 2017 04:37 - CONCLUSION: Diffusely dilated loops of bowel. Zachariah Jiménez MD Laboratory Test 03/30/17 04:00 03/30/17 07:35 03/30/17 09:50 03/30/17 11:43 White Blood Count 14.7 TH/MM3 Red Blood Count 4.17 MIL/MM3 Hemoglobin 12.7 GM/DL Hematocrit 38.7 % Mean Corpuscular Volume 92.8 FL Mean Corpuscular Hemoglobin 30.4 PG Mean Corpuscular Hemoglobin Concent 32.8 % Red Cell Distribution Width 13.5 % Platelet Count 364 TH/MM3 Mean Platelet Volume 10.1 FL Neutrophils (%) (Auto) 85.5 % Lymphocytes (%) (Auto) 7.0 % Monocytes (%) (Auto) 6.6 % Eosinophils (%) (Auto) 0.7 % Basophils (%) (Auto) 0.2 % Neutrophils # (Auto) 12.6 TH/MM3 Lymphocytes # (Auto) 1.0 TH/MM3 Monocytes # (Auto) 1.0 TH/MM3 Eosinophils # (Auto) 0.1 TH/MM3 Basophils # (Auto) 0.0 TH/MM3 CBC Comment AUTO DIFF Differential Comment AUTO DIFF CONFIRMED Platelet Estimate NORMAL Platelet Morphology Comment NORMAL Blood Urea Nitrogen 12 MG/DL Creatinine 0.84 MG/DL Random Glucose 119 MG/DL Total Protein 8.5 GM/DL Albumin 3.7 GM/DL Calcium Level 9.2 MG/DL Magnesium Level 2.3 MG/DL Alkaline Phosphatase 91 U/L Aspartate Amino Transf (AST/SGOT) 25 U/L Alanine Aminotransferase (ALT/SGPT) 60 U/L Total Bilirubin 0.2 MG/DL Sodium Level 137 MEQ/L Potassium Level 4.0 MEQ/L Chloride Level 101 MEQ/L Carbon Dioxide Level 27.6 MEQ/L Anion Gap 8 MEQ/L Estimat Glomerular Filtration Rate 130 ML/MIN Lactic Acid Level 2.4 mmol/L 3.4 mmol/L Troponin I LESS THAN 0.02 NG/ML Nasal Screen MRSA (PCR) MRSA DETECTED Erythrocyte Sedimentation Rate 42 mm/hr C-Reactive Protein 1.18 MG/DL Procalcitonin 0.83 ng/mL Test 03/30/17 15:20 Urine Color YELLOW Urine Turbidity CLEAR Urine pH 7.0 Urine Specific [place] 1.028 Urine Protein 30 mg/dL Urine Glucose (UA) NEG mg/dL Urine Ketones 10 mg/dL Urine Occult Blood SMALL Urine Nitrite NEG Urine Bilirubin NEG Urine Urobilinogen LESS THAN 2.0 MG/DL Urine Leukocyte Esterase NEG Urine RBC 1 /hpf Urine WBC 4 /hpf Urine Mucus FEW /lpf Microscopic Urinalysis Comment CATH-CULT NOT IND Date/Time Source Procedure Growth Status 03/30/17 04:00 Blood Peripheral Aerobic Blood Culture Pending Received 03/30/17 04:00 Blood Peripheral Anaerobic Blood Culture Pending Received 03/30/17 10:00 Gastric Gastric Occult Blood - Final GASTROCCULT POSITIVE Complete Physical Examination HEENT: Pupils equal and round. Normocephalic. No jaundice. NECK: Neck is supple. Tracheostomy in place on T-tube CHEST: Course breath sounds bilaterally. CARDIAC: RRR with no murmur gallop or rubs. ABDOMEN: Soft, nondistended, nontender; no hepatosplenomegaly; bowel sounds are present. PEG tube in place. EXTREMITIES: No clubbing, cyanosis, or edema. SKIN: Normal; no rash; no jaundice. TAP GRINDER: Vegetative state (Maureen Ta) Assessment and Plan Plan ASSESSMENT: - Upper GI bleed. Dark red liquid was suctioned from orotracheal, Gastroccult positive. HH 12.7/38.7. No active bleeding noted. - Sepsis, recurrent with multiple admissions for this. Unclear etiology. U/A negative. S/p blood cultures,results pending. ID consulted. WBC 14.7. Lactic acid 3.4. Temp 99.9F - Respiratory Failure, chronic. Trach. CXR shows no acute findings. - Persistent Vegetative State, secondary to anoxic brain injury. - History of DVT, on Eliquis (on hold). - Seizure disorder. PLAN: - EGD on Friday - Obtain consents - Hold TF at [facility] - Hold Eliquis - Await Gastroccult - Monitor HH, transfuse as necessary - Notify GI of active bleeding - Further recommendations to follow based on results of above Patient seen and examined by Dr. Hernandez and myself and this note is written on his behalf. (KuMaureen quintero) Physician Comments Patient seen and examined Agree with above Continue with current supportive care And monitor labs Plan for an EGD tomorrow (Jam Hernandez MD) Maureen Ta Mar 30, 2017 18:02 Jam Hernandez MD Mar 30, 2017 22:13
[2017-03-30] MEDS: POTASSIUM CHLORIDE 25 MEQ EFFERVESCENT TAB PEG SCH (21:22)
[2017-03-30] MEDS: cloNIDine HCL 0.1 MG TAB PO PRN (23:03)
[2017-03-31] VITALS (19 sets, daily range): BP systolic 118–165; BP diastolic 56–72; PULSE 57–102; RESP 10–21; TEMP 98–99; O2SAT 97–100
[2017-03-31] MEDS: RESP: ALBUTEROL 2.5 MG/IPRATROPIUM 0.5 MG NEB (SCH) INH ×7 (01:32→23:45)
[2017-03-31] MEDS: CIPROFLOXACIN 0.3% OPTH SOLN 2.5 ML BTL EACH EYE SCH ×5 (04:00→20:00)
[2017-03-31] MEDS: CHLORHEXIDINE GLUCONATE 2 % 1 PACK (2 CLOTHS) TOP SCH (04:00)
[2017-03-31] MEDS: HYOSCYAMINE 0.125 MG TAB PO SCH ×5 (04:00→20:11)
[2017-03-31] MEDS: hydrALAZINE HCL 50 MG TAB PO SCH ×3 (04:51→20:12)
[2017-03-31] MEDS: PROPRANOLOL HCL 20 MG TAB PEG SCH ×3 (04:51→18:00)
[2017-03-31] MEDS: CEFEPIME INJ 1,000 MG in SODIUM CHLORIDE 0.9% INJ 100 ML IV SCH ×2 (04:52→18:00)
--- NOTE | 2017-03-31 05:49 | RADRPT ---
EXAM DATE/TIME: 03/31/2017 03:39 [facility] COMPARISON: CHEST SINGLE AP, March 30, 2017, 10:07. INDICATIONS : Shortness of breath, possible pulmonary disease. MEDICAL HISTORY : Anoxic brain injury SURGICAL HISTORY : Tracheosomy J tube ENCOUNTER: Subsequent ACUITY: 2 days PAIN SCORE: Non-responsive. LOCATION: Bilateral chest FINDINGS: A single view of the chest demonstrates tracheostomy in good position. Mild cardiomegaly. No effusion . No pneumothorax. Subsegmental basilar and dependent airspace disease. CONCLUSION: 1. Tracheostomy in good position. Cardiomegaly with subsegmental basilar dependent airspace disease. Stephan Rich MD on March 31, 2017 at 5:46 Board Certified Radiologist. This report was verified electronically.
[2017-03-31 05:52] LABS: AUTOMATED NEUTROPHIL # 6.3 TH/MM3 (1.8-7.7); BASOPHIL # 0.1 TH/MM3 (0-0.2); BASOPHIL % 0.6 % (0.0-2.0); EOSINOPHIL # 0.2 TH/MM3 (0-0.4); EOSINOPHIL % 1.9 % (0.0-4.0); HEMATOCRIT 36.2 % (39.0-51.0); HEMO FLAGS DIFF FINAL; LYMPH % 18.7 % (9.0-44.0); LYMPHOCYTE # 1.8 TH/MM3 (1.0-4.8); MEAN CELL VOLUME 93.7 FL (80.0-100.0); MEAN CORPUSCULAR HGB CONC 34.1 % (32.0-36.0); MONO % 13.7 % (0.0-8.0); NEUT % 65.1 % (16.0-70.0); PLATELET COUNT 153 TH/MM3 (150-450); RED BLOOD COUNT 3.86 MIL/MM3 (4.50-5.90); RED CELL DISTRIBUTION WIDTH 13.7 % (11.6-17.2); WHITE BLOOD COUNT 9.6 TH/MM3 (4.0-11.0)
[2017-03-31] MEDS: VANCOMYCIN INJ 1,250 MG in SODIUM CHLOR 0.9% 250 ML INJ 250 ML IV SCH ×3 (06:38→23:00)
[2017-03-31 06:39] LABS: ALKALINE PHOSPHATASE 80 U/L (45-117); ALT (GPT) 69 U/L (12-78); ANION GAP 10 MEQ/L (5-15); AST (GOT) 86 U/L (15-37); BICARBONATE 21.6 MEQ/L (21.0-32.0); CHLORIDE 107 MEQ/L (98-107); GLOMERULAR FILTRATION RATE 169 ML/MIN (>89); MAGNESIUM 2.1 MG/DL (1.5-2.5); POTASSIUM 4.1 MEQ/L (3.5-5.1); SODIUM (NA) 139 MEQ/L (136-145); TOTAL BILIRUBIN ADULT 0.5 MG/DL (0.2-1.0); VANCOMYCIN TROUGH 18.7 MCG/ML (5.0-10.0)
[2017-03-31 06:40] LABS: BLOOD UREA NITROGEN 11 MG/DL (7-18)
[2017-03-31] MEDS ORDERED: PHARMACY ORDERED LAB ONE (06:45)
[2017-03-31] MEDS ORDERED: PROPOFOL 200 MG/20 ML AMP IV ONE ×2 (07:56→10:33)
[2017-03-31] MEDS: RESP: TOBRAMYCIN SULFATE 80 MG/2 ML NEB NEB SCH (08:05)
[2017-03-31] MEDS: FAMOTIDINE 20 MG TAB G-TUBE SCH (08:14)
[2017-03-31] MEDS: levETIRAcetam 500 MG TAB G-TUBE SCH ×2 (08:14→20:12)
[2017-03-31] MEDS: DOCUSATE SODIUM 50 MG/SENNA 8.6 MG TAB PO SCH ×2 (08:15→20:12)
[2017-03-31] MEDS: LORATADINE 10 MG TAB G-TUBE SCH (08:15)
[2017-03-31] MEDS: APIXABAN 5 MG TABLET G-TUBE SCH ×2 (08:16→20:12)
[2017-03-31] MEDS: POTASSIUM CHLORIDE 25 MEQ EFFERVESCENT TAB PEG SCH ×2 (08:16→20:12)
[2017-03-31] MEDS: SODIUM CHLORIDE 0.9% FLUSH 10 ML FLUSH IV FLUSH SCH ×2 (08:16→20:12)
--- NOTE | 2017-03-31 08:27 | HHI.PR ---
Subjective Remarks This is an unfortunate 31-year-old male with PMH of Traumatic Brain Injury and Persistent Vegetative State, s/p Trach/PEG, h/o DVT on Coumadin, Recurrent PNA/ Sepsis and Seizure Disorder who was brought to the ER secondary to fever and tachycardia. Multiple admissions for same, s/p treatment for Sepsis and returns within 24hrs for readmission due to recurrent symptoms. Most recent admit 03/21-03/29/17 for Sepsis/PNA, s/p eval by ID w/ completion of antibiotics. Shortly after arrival, developed fever/chills and tachycardia and sent back to ER. On arrival here, BP 142/88, HR 109, O2 sat 100% on trach, Temp 101.0 rectal. WBC 14.7, WBC 6.5 on 03/29/17. Chemistry unremarkable. Lactic Acid 2.4. CXR with no definite infiltrate. Abdominal X-ray with diffusely dilated loops of bowel. S/p Blood Cultures in ER. POSSIBLE ASPIRATION AT [facility] FEVERS NOTED POSSIBLE UPPER GI BLEED DW RN AND ID AM CHEST XRAY AM LABS 03-31 patient to have EGD later today Discussed with family at bedside Had gastro-occult positive gastroenterology was consult and will have an EGD today A.m. labs Continue current antibiotics per infectious disease Objective Vitals Vital Signs Date Time Temp Pulse Resp B/P (MAP) Pulse Ox O2 Delivery O2 Flow Rate FiO2 03/31/17 08:06 100 T-piece 4.00 28 03/31/17 04:00 99.0 57 10 118/56 (76) 100 03/31/17 00:00 98.7 69 14 124/63 (83) 100 03/30/17 20:37 98 T-piece 28 03/30/17 20:00 98.8 98 12 164/90 (114) 99 03/30/17 18:00 92 03/30/17 16:37 98 T-piece 5.00 28 03/30/17 16:00 99.9 113 11 139/64 (89) 100 03/30/17 16:00 113 03/30/17 14:00 112 03/30/17 12:00 100.1 97 16 134/69 (90) 99 03/30/17 12:00 97 03/30/17 09:00 162 I/O 9/24/17 9/2403/30/17 03/31/17 03/31/17 03/31/17 07:00 15:00 23:00 07:00 15:00 23:00 Intake Total 2000 ml 350 ml 1260 ml 512 ml Output Total 675 ml 750 ml Balance 2000 ml 350 ml 585 ml -238 ml Intake Oral 0 ml IV Total 2000 ml 350 ml 1160 ml 350 ml Tube Feeding 102 ml Tube Irrigant 100 ml 60 ml Output Urine Total 675 ml 750 ml # Bowel Movements 0 Result Diagram: 03/31/17 0540 03/31/17 0540 Other Results Laboratory Tests Test 03/30/17 04:00 03/30/17 07:35 03/30/17 09:50 03/30/17 11:43 White Blood Count 14.7 TH/MM3 Red Blood Count 4.17 MIL/MM3 Hemoglobin 12.7 GM/DL Hematocrit 38.7 % Mean Corpuscular Volume 92.8 FL Mean Corpuscular Hemoglobin 30.4 PG Mean Corpuscular Hemoglobin Concent 32.8 % Red Cell Distribution Width 13.5 % Platelet Count 364 TH/MM3 Mean Platelet Volume 10.1 FL Neutrophils (%) (Auto) 85.5 % Lymphocytes (%) (Auto) 7.0 % Monocytes (%) (Auto) 6.6 % Eosinophils (%) (Auto) 0.7 % Basophils (%) (Auto) 0.2 % Neutrophils # (Auto) 12.6 TH/MM3 Lymphocytes # (Auto) 1.0 TH/MM3 Monocytes # (Auto) 1.0 TH/MM3 Eosinophils # (Auto) 0.1 TH/MM3 Basophils # (Auto) 0.0 TH/MM3 CBC Comment AUTO DIFF Differential Comment AUTO DIFF CONFIRMED Platelet Estimate NORMAL Platelet Morphology Comment NORMAL Blood Urea Nitrogen 12 MG/DL Creatinine 0.84 MG/DL Random Glucose 119 MG/DL Total Protein 8.5 GM/DL Albumin 3.7 GM/DL Calcium Level 9.2 MG/DL Magnesium Level 2.3 MG/DL Alkaline Phosphatase 91 U/L Aspartate Amino Transf (AST/SGOT) 25 U/L Alanine Aminotransferase (ALT/SGPT) 60 U/L Total Bilirubin 0.2 MG/DL Sodium Level 137 MEQ/L Potassium Level 4.0 MEQ/L Chloride Level 101 MEQ/L Carbon Dioxide Level 27.6 MEQ/L Anion Gap 8 MEQ/L Estimat Glomerular Filtration Rate 130 ML/MIN Lactic Acid Level 2.4 mmol/L 3.4 mmol/L Troponin I LESS THAN 0.02 NG/ML Nasal Screen MRSA (PCR) MRSA DETECTED Erythrocyte Sedimentation Rate 42 mm/hr C-Reactive Protein 1.18 MG/DL Procalcitonin 0.83 ng/mL Test 03/30/17 15:20 03/31/17 05:40 Urine Color YELLOW Urine Turbidity CLEAR Urine pH 7.0 Urine Specific [place] 1.028 Urine Protein 30 mg/dL Urine Glucose (UA) NEG mg/dL Urine Ketones 10 mg/dL Urine Occult Blood SMALL Urine Nitrite NEG Urine Bilirubin NEG Urine Urobilinogen LESS THAN 2.0 MG/DL Urine Leukocyte Esterase NEG Urine RBC 1 /hpf Urine WBC 4 /hpf Urine Mucus FEW /lpf Microscopic Urinalysis Comment CATH-CULT NOT IND White Blood Count 9.6 TH/MM3 Red Blood Count 3.86 MIL/MM3 Hemoglobin 12.3 GM/DL Hematocrit 36.2 % Mean Corpuscular Volume 93.7 FL Mean Corpuscular Hemoglobin 32.0 PG Mean Corpuscular Hemoglobin Concent 34.1 % Red Cell Distribution Width 13.7 % Platelet Count 153 TH/MM3 Mean Platelet Volume 10.6 FL Neutrophils (%) (Auto) 65.1 % Lymphocytes (%) (Auto) 18.7 % Monocytes (%) (Auto) 13.7 % Eosinophils (%) (Auto) 1.9 % Basophils (%) (Auto) 0.6 % Neutrophils # (Auto) 6.3 TH/MM3 Lymphocytes # (Auto) 1.8 TH/MM3 Monocytes # (Auto) 1.3 TH/MM3 Eosinophils # (Auto) 0.2 TH/MM3 Basophils # (Auto) 0.1 TH/MM3 CBC Comment DIFF FINAL Differential Comment Hematology Comments Blood Urea Nitrogen 11 MG/DL Creatinine 0.67 MG/DL Random Glucose 69 MG/DL Total Protein 7.6 GM/DL Albumin 3.3 GM/DL Calcium Level 8.9 MG/DL Phosphorus Level 3.4 MG/DL Magnesium Level 2.1 MG/DL Alkaline Phosphatase 80 U/L Aspartate Amino Transf (AST/SGOT) 86 U/L Alanine Aminotransferase (ALT/SGPT) 69 U/L Total Bilirubin 0.5 MG/DL Sodium Level 139 MEQ/L Potassium Level 4.1 MEQ/L Chloride Level 107 MEQ/L Carbon Dioxide Level 21.6 MEQ/L Anion Gap 10 MEQ/L Estimat Glomerular Filtration Rate 169 ML/MIN Vancomycin Level Trough 18.7 MCG/ML Imaging Last Impressions Chest X-Ray 03/31/17 0600 Signed Impressions: Service Date/Time: Friday, March 31, 2017 03:39 - CONCLUSION: 1. Tracheostomy in good position. Cardiomegaly with subsegmental basilar dependent airspace disease. Stephan Rich MD Abdomen/Pelvis CT 03/30/17 0000 Signed Impressions: Service Date/Time: Thursday, March 30, 2017 15:46 - CONCLUSION: 1. The gastrojejunostomy tube remains in place. 2. Nonspecific nonobstructive bowel gas pattern which may represent a mild ileus or gastroenteritis. 3. Unremarkable gallbladder. 4. The study is degraded by mild motion and streak artifact. Clayton Mccray MD Abdomen X-Ray 03/30/17 0000 Signed Impressions: Service Date/Time: Thursday, March 30, 2017 04:37 - CONCLUSION: Diffusely dilated loops of bowel. Zachariah Jiménez MD Objective Remarks GENERAL: COMPLETELY NONVERBAL SKIN: Warm and dry. HEAD: Atraumatic. Normocephalic. EYES: Pupils equal and round. No scleral icterus. No injection or drainage. ENT: No nasal bleeding or discharge. Mucous membranes pink and moist. NECK: Trachea midline. No JVD. TRACHEOSTOMY IN PLACE ON T-TUBE CARDIOVASCULAR: Regular rate and rhythm. S1,S2 NO S3 OR S4 RESPIRATORY: No accessory muscle use. COARSE BREATH SOUNDS BL, RHONCHI. Breath sounds equal bilaterally. GASTROINTESTINAL: Abdomen soft, non-tender, nondistended. Hepatic and splenic margins not palpable. PEG--CONDOM CATHETER MUSCULOSKELETAL: Extremities without clubbing, cyanosis, or edema. No obvious deformities. NEUROLOGICAL: NOT Awake and alert. obvious cranial nerve deficits. NOT ABLE TO ASSESS MOTOR OR SENSORY. PSYCHIATRIC: INAppropriate mood and affect; insight and judgment ABnormal. NONVERBAL UNABLE TO ASSESS Medications and IVs Current Medications Medications (Trade) Dose Ordered Sig/Diane Route PRN Reason Start Time Stop Time Status Last Admin Dose Admin Amlodipine Besylate (Norvasc) 10 mg DAILY PEG 03/30/17 09:00 03/31/17 08:14 Apixaban (Eliquis) 5 mg BID G-TUBE 03/30/17 09:00 Atropine Sulfate (Atropine 1% Opth Soln) 1 drop Q12HR PRN SL For mild/moderate secretions 03/30/17 05:30 Baclofen (Lioresal) 20 mg TID G-TUBE 03/30/17 09:00 03/30/17 21:21 Ciprofloxacin HCl (Ciloxan 0.3% Opth Soln) 1 drop Q4HR EACH EYE 03/30/17 08:00 03/31/17 08:00 Famotidine (Pepcid) 40 mg DAILY G-TUBE 03/30/17 09:00 03/31/17 08:14 Guaifenesin (Robitussin Liq) 100 mg Q4H PRN PO COUGH 03/30/17 05:30 Hydralazine HCl (Apresoline) 50 mg Q8HR PO 03/30/17 06:00 03/31/17 04:51 Hyoscyamine Sulfate (Levsin) 0.125 mg Q4HR PO 03/30/17 08:00 03/31/17 08:16 Albuterol/ Ipratropium (Duoneb Neb) 1 ampule Q4HR NEB INH 03/30/17 08:00 03/31/17 08:05 Levetriacetam (Keppra) 1,000 mg BID G-TUBE 03/30/17 09:00 03/31/17 08:14 Lorazepam (Ativan) 1 mg Q4H PRN G-TUBE for severe anxiety or dyspnea 03/30/17 05:30 Propranolol HCl (Inderal) 20 mg Q6HR PEG 03/30/17 06:00 03/31/17 04:51 Tobramycin Sulfate (Tobramycin Neb) 80 mg Q12HR NEB NEB 03/30/17 08:00 03/31/17 08:05 Loratadine (Claritin) 5 mg DAILY G-TUBE 03/30/17 09:00 03/31/17 08:15 Sodium Chloride 1,000 ml @ 100 mls/hr Q10H IV 03/30/17 05:20 03/30/17 23:04 Sodium Chloride (NS Flush) 2 ml UNSCH PRN IV FLUSH FLUSH AFTER USING IV ACCESS 03/30/17 05:30 Sodium Chloride (NS Flush) 2 ml BID IV FLUSH 03/30/17 09:00 03/31/17 08:16 Ondansetron HCl (Zofran Inj) 4 mg Q6H PRN IVP NAUSEA OR VOMITING 03/30/17 05:30 03/30/17 09:10 Morphine Sulfate (Morphine Inj) 1 mg Q3H PRN IV PUSH Pain 3-5 03/30/17 05:30 Morphine Sulfate (Morphine Inj) 2 mg Q3H PRN IV PUSH Pain 6-10 03/30/17 05:30 03/30/17 23:19 Senna/Docusate Sodium (Sanam-Colace) 1 tab BID PO 03/30/17 09:00 03/31/17 08:15 Magnesium Hydroxide (Milk Of Magnesia Liq) 30 ml Q12H PRN PO MILD - MODERATE CONSTIPATION 03/30/17 05:30 Sennosides (Senokot) 17.2 mg Q12H PRN PO MODERATE - SEVERE CONSTIPATION 03/30/17 05:30 Bisacodyl (Dulcolax Supp) 10 mg DAILY PRN RECTAL SEVERE CONSITIPATION 03/30/17 05:30 Lactulose (Lactulose Liq) 30 ml DAILY PRN PO SEVERE CONSITIPATION 03/30/17 05:30 Pharmacy Profile Note 0 ml @ 0 mls/hr UNSCH OTHER 03/30/17 05:45 Cefepime HCl 1000 mg/Sodium Chloride 100 ml @ 200 mls/hr Q12H IV 03/30/17 06:00 03/31/17 04:52 Lorazepam (Ativan Inj) 1 mg Q2H PRN IV PUSH AGITATION 03/30/17 06:30 03/30/17 09:10 Miscellaneous Information 1 [id number] XX 03/30/17 06:30 Chlorhexidine Gluconate (Chlorhexidine 2% Cloth) 3 pack Taper DAILY@04 TOP 03/31/17 04:00 03/27/18 03:59 03/31/17 04:00 Chlorhexidine Gluconate (Chlorhexidine 2% Cloth) 3 pack UNSCH PRN TOP HYGIENIC CARE 03/30/17 06:30 Clonidine (Catapres) 0.1 mg Q6H PRN PO SBP>160, DBP>90 03/30/17 10:00 03/30/17 23:03 Metoprolol Tartrate (Lopressor) 25 mg BID PRN PO HR>110 03/30/17 10:00 Potassium Bicarb/ Potassium Chloride (K-Lyte Cl Eff) 25 meq Q12HR PEG 03/30/17 21:00 03/31/17 08:16 Acetaminophen (Tylenol 650 Mg/ 20 ml Liq) 650 mg Q6H PRN PO FEVER 03/30/17 10:15 03/30/17 11:26 Acetaminophen (Tylenol Supp) 650 mg Q6H PRN RECTAL FEVER 03/30/17 10:15 Vancomycin HCl 1250 mg/Sodium Chloride 262.5 ml @ 250 mls/hr Q8H IV 03/30/17 15:00 03/31/17 06:38 Urinary Catheter: No Vascular Central Line Catheter: No A/P Problem List: (1) Sepsis ICD Code: A41.9 - Sepsis, unspecified organism Status: Resolved (2) Chronic respiratory failure ICD Code: J96.10 - Chronic respiratory failure, unspecified whether with hypoxia or hypercapnia (3) History of DVT (deep vein thrombosis) ICD Code: Z86.718 - Personal history of other venous thrombosis and embolism Status: Acute (4) Permanent vegetative state ICD Code: R40.3 - Persistent vegetative state Status: Acute (5) Seizure disorder ICD Code: G40.909 - Epilepsy, unspecified, not intractable, without status epilepticus Assessment and Plan 1. Sepsis: Recurrent, multiple admissions for same. Unclear source. Recent admit 03/21-03/29/17 for same, s/p completion of IV Abx and eval by ID. Temp 102.2 rectal, WBC 14.7, previously 6.5 on 03/29/17. CXR w/ no acute findings, images reviewed by me. U/a pending. S/p Blood Cultures in ER. Re-consult ID for further recommendations as unclear if infectious etiology. H/o Pseudomonas PNA on 03/23/17, cultures otherwise negative. 2. Chronic Respiratory Failure: S/p Trach, O2 sat stable at 100% on T-piece. CXR w/ no acute findings, images reviewed by me. Resume home DuoNeb, Tobra Neb 3. H/o DVT: on Eliquis, will continue. 4. 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 Chronic. At baseline. 5. Seizure Disorder: No seizure activity noted. Resume home medications. 6. DVT Prophylaxis: Continue home Eliquis POSSIBLE ASPIRATION AT NURSING FACILITY FEVERS HX PSEUDOMONAS PNA CHECK GASTROCCULT-was positive to undergo EGD today March 31 RESTART TUBE FEEDS DW RN AND ID Has remained afebrile since coming to the ICU Hudson Luz DO Mar 31, 2017 08:27
--- NOTE | 2017-03-31 11:30 | HHI.GIFU ---
Subjective Remarks Resting in bed in no distress. Eyes open, does not follow commands. PEG tube is clamped. No active bleeding at this time. Objective Vitals I&O Vital Signs Date Time Temp Pulse Resp B/P (MAP) Pulse Ox O2 Delivery O2 Flow Rate FiO2 03/31/17 10:00 82 03/31/17 09:00 86 03/31/17 08:06 100 T-piece 4.00 28 03/31/17 08:00 71 03/31/17 08:00 98.0 71 12 145/63 (90) 100 03/31/17 07:00 97 03/31/17 04:00 99.0 57 10 118/56 (76) 100 03/31/17 00:00 98.7 69 14 124/63 (83) 100 03/30/17 20:37 98 T-piece 28 03/30/17 20:00 98.8 98 12 164/90 (114) 99 03/30/17 18:00 92 03/30/17 16:37 98 T-piece 5.00 28 03/30/17 16:00 99.9 113 11 139/64 (89) 100 03/30/17 16:00 113 03/30/17 14:00 112 03/30/17 12:00 100.1 97 16 134/69 (90) 99 03/30/17 12:00 97 I/O 03/30/17 03/30/17 03/30/17 03/31/17 03/31/17 03/31/17 07:00 15:00 23:00 07:00 15:00 23:00 Intake Total 2000 ml 350 ml 1260 ml 512 ml Output Total 675 ml 750 ml Balance 2000 ml 350 ml 585 ml -238 ml Intake Oral 0 ml IV Total 2000 ml 350 ml 1160 ml 350 ml Tube Feeding 102 ml Tube Irrigant 100 ml 60 ml Output Urine Total 675 ml 750 ml # Bowel Movements 0 Laboratory Laboratory Tests Test 03/30/17 11:43 03/30/17 15:20 03/31/17 05:40 Erythrocyte Sedimentation Rate 42 C-Reactive Protein 1.18 Procalcitonin 0.83 Urine Color YELLOW Urine Turbidity CLEAR Urine pH 7.0 Urine Specific [place] 1.028 Urine Protein 30 Urine Glucose (UA) NEG Urine Ketones 10 Urine Occult Blood SMALL Urine Nitrite NEG Urine Bilirubin NEG Urine Urobilinogen LESS THAN 2.0 Urine Leukocyte Esterase NEG Urine RBC 1 Urine WBC 4 Urine Mucus FEW Microscopic Urinalysis Comment CATH-CULT NOT IND White Blood Count 9.6 Red Blood Count 3.86 Hemoglobin 12.3 Hematocrit 36.2 Mean Corpuscular Volume 93.7 Mean Corpuscular Hemoglobin 32.0 Mean Corpuscular Hemoglobin Concent 34.1 Red Cell Distribution Width 13.7 Platelet Count 153 Mean Platelet Volume 10.6 Neutrophils (%) (Auto) 65.1 Lymphocytes (%) (Auto) 18.7 Monocytes (%) (Auto) 13.7 Eosinophils (%) (Auto) 1.9 Basophils (%) (Auto) 0.6 Neutrophils # (Auto) 6.3 Lymphocytes # (Auto) 1.8 Monocytes # (Auto) 1.3 Eosinophils # (Auto) 0.2 Basophils # (Auto) 0.1 CBC Comment DIFF FINAL Differential Comment Hematology Comments Blood Urea Nitrogen 11 Creatinine 0.67 Random Glucose 69 Total Protein 7.6 Albumin 3.3 Calcium Level 8.9 Phosphorus Level 3.4 Magnesium Level 2.1 Alkaline Phosphatase 80 Aspartate Amino Transf (AST/SGOT) 86 Alanine Aminotransferase (ALT/SGPT) 69 Total Bilirubin 0.5 Sodium Level 139 Potassium Level 4.1 Chloride Level 107 Carbon Dioxide Level 21.6 Anion Gap 10 Estimat Glomerular Filtration Rate 169 Vancomycin Level Trough 18.7 Date/Time Source Procedure Growth Status 03/30/17 04:00 Blood Peripheral Aerobic Blood Culture - Preliminary NO GROWTH IN 1 DAY Resulted 03/30/17 04:00 Blood Peripheral Anaerobic Blood Culture - Preliminary NO GROWTH IN 1 DAY Resulted 03/30/17 10:00 Gastric Gastric Occult Blood - Final GASTROCCULT POSITIVE Complete Imaging Last Impressions Chest X-Ray 03/31/17 0600 Signed Impressions: Service Date/Time: Friday, March 31, 2017 03:39 - CONCLUSION: 1. Tracheostomy in good position. Cardiomegaly with subsegmental basilar dependent airspace disease. Stephan Rich MD Abdomen/Pelvis CT 03/30/17 0000 Signed Impressions: Service Date/Time: Thursday, March 30, 2017 15:46 - CONCLUSION: 1. The gastrojejunostomy tube remains in place. 2. Nonspecific nonobstructive bowel gas pattern which may represent a mild ileus or gastroenteritis. 3. Unremarkable gallbladder. 4. The study is degraded by mild motion and streak artifact. Clayton Mccray MD Abdomen X-Ray 03/30/17 0000 Signed Impressions: Service Date/Time: Thursday, March 30, 2017 04:37 - CONCLUSION: Diffusely dilated loops of bowel. Zachariah Jiménez MD Physical Exam HEENT: Normocephalic; atraumatic; no jaundice. CHEST: Tracheostomy, t-bar, diminished breath sounds. CARDIAC: RRR ABDOMEN: Soft, nondistended, nontender; no hepatosplenomegaly; bowel sounds are present in all four quadrants. PEG tube clamped EXTREMITIES: Mild gen. edema. SKIN: Normal; no rash; no jaundice. SUPERVISOR WORD PROCESSING: Nonverbal. Does not follow commands Assessment and Plan Plan ASSESSMENT: - Upper GI bleed. Dark red liquid was suctioned from orotracheal, Gastroccult positive. HH 12.7/38.7. No active bleeding noted. CT scan abdomen and pelvis (03/30/17)---> the gastrojejunostomy tube remains in place, nonspecific nonobstructive bowel gas pattern which may represent a mild ileus or gastroenteritis, unremarkable gallbladder, the study is degraded by mild motion and streak artifact. No current bleeding. - Sepsis, recurrent, unclear etiology. Possible aspiration. CXR (03/31/17)---> tracheostomy in good position, cardiomegaly with subsegmental basilar dependent airspace disease. CT as above. Blood cultures no growth one day. ID consulted. WBC 9.6. Afebrile. - Respiratory Failure, chronic. Trach. CXR shows no acute findings. - Persistent Vegetative State, Sz D/O, secondary to anoxic brain injury. - History of DVT, on Eliquis on hold for GI bleeding. - Seizure disorder. PLAN: - Plan for egd today - Obtain consents - NPO - Pepcid - Monitor HH - Transfuse as necessary - Notify GI of active bleeding - Further recommendations to follow based on results of above - Patient seen and examined by Dr. Ashraf and myself and this note is written on his behalf. Vida Kaba Mar 31, 2017 11:30
[2017-03-31] MEDS: BACLOFEN 20 MG TAB G-TUBE SCH ×2 (12:08→18:00)
--- NOTE | 2017-03-31 13:30 | HHI.GIFU ---
Subjective Remarks Patient is laying in bed, awake, not been able to communicate, has trach Objective Vitals I&O Vital Signs Date Time Temp Pulse Resp B/P (MAP) Pulse Ox O2 Delivery O2 Flow Rate FiO2 03/31/17 13:00 82 03/31/17 12:00 98.1 89 11 122/66 (84) 100 03/31/17 12:00 89 03/31/17 11:00 79 03/31/17 10:00 82 03/31/17 09:00 86 03/31/17 08:06 100 T-piece 4.00 28 03/31/17 08:00 71 03/31/17 08:00 98.0 71 12 145/63 (90) 100 03/31/17 07:00 97 03/31/17 04:00 99.0 57 10 118/56 (76) 100 03/31/17 00:00 98.7 69 14 124/63 (83) 100 03/30/17 20:37 98 T-piece 28 03/30/17 20:00 98.8 98 12 164/90 (114) 99 03/30/17 18:00 92 03/30/17 16:37 98 T-piece 5.00 28 03/30/17 16:00 99.9 113 11 139/64 (89) 100 03/30/17 16:00 113 03/30/17 14:00 112 I/O 03/30/17 03/30/17 03/30/17 03/31/17 03/31/17 03/31/17 07:00 15:00 23:00 07:00 15:00 23:00 Intake Total 2000 ml 350 ml 1260 ml 512 ml Output Total 675 ml 750 ml Balance 2000 ml 350 ml 585 ml -238 ml Intake Oral 0 ml IV Total 2000 ml 350 ml 1160 ml 350 ml Tube Feeding 102 ml Tube Irrigant 100 ml 60 ml Output Urine Total 675 ml 750 ml # Bowel Movements 0 Laboratory Laboratory Tests Test 03/30/17 15:20 03/31/17 05:40 Urine Color YELLOW Urine Turbidity CLEAR Urine pH 7.0 Urine Specific [place] 1.028 Urine Protein 30 Urine Glucose (UA) NEG Urine Ketones 10 Urine Occult Blood SMALL Urine Nitrite NEG Urine Bilirubin NEG Urine Urobilinogen LESS THAN 2.0 Urine Leukocyte Esterase NEG Urine RBC 1 Urine WBC 4 Urine Mucus FEW Microscopic Urinalysis Comment CATH-CULT NOT IND White Blood Count 9.6 Red Blood Count 3.86 Hemoglobin 12.3 Hematocrit 36.2 Mean Corpuscular Volume 93.7 Mean Corpuscular Hemoglobin 32.0 Mean Corpuscular Hemoglobin Concent 34.1 Red Cell Distribution Width 13.7 Platelet Count 153 Mean Platelet Volume 10.6 Neutrophils (%) (Auto) 65.1 Lymphocytes (%) (Auto) 18.7 Monocytes (%) (Auto) 13.7 Eosinophils (%) (Auto) 1.9 Basophils (%) (Auto) 0.6 Neutrophils # (Auto) 6.3 Lymphocytes # (Auto) 1.8 Monocytes # (Auto) 1.3 Eosinophils # (Auto) 0.2 Basophils # (Auto) 0.1 CBC Comment DIFF FINAL Differential Comment Hematology Comments Blood Urea Nitrogen 11 Creatinine 0.67 Random Glucose 69 Total Protein 7.6 Albumin 3.3 Calcium Level 8.9 Phosphorus Level 3.4 Magnesium Level 2.1 Alkaline Phosphatase 80 Aspartate Amino Transf (AST/SGOT) 86 Alanine Aminotransferase (ALT/SGPT) 69 Total Bilirubin 0.5 Sodium Level 139 Potassium Level 4.1 Chloride Level 107 Carbon Dioxide Level 21.6 Anion Gap 10 Estimat Glomerular Filtration Rate 169 Vancomycin Level Trough 18.7 Date/Time Source Procedure Growth Status 03/30/17 04:00 Blood Peripheral Aerobic Blood Culture - Preliminary NO GROWTH IN 1 DAY Resulted 03/30/17 04:00 Blood Peripheral Anaerobic Blood Culture - Preliminary NO GROWTH IN 1 DAY Resulted 03/30/17 10:00 Gastric Gastric Occult Blood - Final GASTROCCULT POSITIVE Complete Physical Exam HEENT: Normocephalic; atraumatic; no jaundice. CHEST: Tracheostomy, t-bar, diminished breath sounds. CARDIAC: RRR ABDOMEN: Soft, nondistended, nontender; no hepatosplenomegaly; bowel sounds are present in all four quadrants. PEG tube clamped EXTREMITIES: Mild gen. edema. SKIN: Normal; no rash; no jaundice. BUSINESS ATTORNEY: Nonverbal. Does not follow commands Assessment and Plan Plan ASSESSMENT: - Upper GI bleed. Dark red liquid was suctioned from orotracheal, Gastroccult positive. HH 12.7/38.7. No active bleeding noted. CT scan abdomen and pelvis (03/30/17)---> the gastrojejunostomy tube remains in place, nonspecific nonobstructive bowel gas pattern which may represent a mild ileus or gastroenteritis, unremarkable gallbladder, the study is degraded by mild motion and streak artifact. No current bleeding. - Sepsis, recurrent, unclear etiology. Possible aspiration. CXR (03/31/17)---> tracheostomy in good position, cardiomegaly with subsegmental basilar dependent airspace disease. CT as above. Blood cultures no growth one day. ID consulted. WBC 9.6. Afebrile. - Respiratory Failure, chronic. Trach. CXR shows no acute findings. - Persistent Vegetative State, Sz D/O, secondary to anoxic brain injury. - History of DVT, on Eliquis on hold for GI bleeding. - Seizure disorder. 03/31/2017 patient has upper GI bleeding, nothing currently, upper endoscopy showed severe grade D esophagitis biopsy was done, mild gastritis biopsy was done, G J-tube is in place PLAN: -Resume diet as before the endoscopy -Protonix 40 mg daily - Monitor HH - Transfuse as necessary - Notify GI of active bleeding Jameson Ashraf MD Mar 31, 2017 13:30
--- NOTE | 2017-03-31 13:33 | PD.PROCEDR ---
GI Procedure INDICATION FOR PROCEDURE GI bleed, vomiting PROCEDURE: The procedure, risks and benefits were discussed with Mr. Andersen and informed consent was obtained. Anesthesia sedated him with Diprivan. He was placed in the left lateral decubitus position. EGD: The Pentax videoscope was introduced through the oropharynx and advanced to the second portion of the duodenum under direct visualization. Retroflexion was performed in the stomach. Biopsy from the distal esophagus because of esophagitis, biopsy from the antrum, gastritis. GJ tube is in place going into the small bowel FINDINGS: Grade D distal esophagitis biopsy was done Moderate gastritis biopsy was done GJ tube is in good position ESTIMATED BLOOD LOSS: None SPECIMENS REMOVED: Antrum and distal esophagus COMPLICATIONS: None IMPRESSION: Esophagitis, gastritis PLAN: Start PPI Monitor H&H Resume feedings through G-J tube Jameson Ashraf MD Mar 31, 2017 13:33
[2017-03-31] MEDS ORDERED: PANTOPRAZOLE SOD 20 MG DELAYED RELEASE TAB PO ONE (14:00)
--- NOTE | 2017-03-31 14:25 | HHI.IDPN ---
Subjective Subjective Remarks Patient is a 31-year-old male, well-known to me, recently discharged from the hospital March 29, readmitted for recurrent fevers. This is his third admission since February. He was admitted February 21 and at that time he was found to have viridans strep sepsis, as well as Pseudomonas pneumonia. Required ventilatory support at that time, and he improved. He has a chronic trach. At one time he required bronchoscopy during that hospitalization for hemoptysis, and that resolved, and no active bleeding was seen during bronchoscopy. He completed treatment for his bacteremia and pneumonia, and [facility] He was readmitted for fevers, and again received treatment for Pseudomonas pneumonia. He was stable, and went back to the [facility] on March 29, and came back because of fevers. His temperature was up to 102+, he is tachycardic between 140-150. He had a chest x-ray which was limited but there was no obvious infiltrates. He did not have any central line. He has a condom catheter in place. There is been no real change with his neurological status. There is also been no mention of any diarrhea. His WBC was up to 14. He is not on pressors. He is on T piece with good sats. He has a lot of drooling from his mouth. His neurological status remains the same, and that he is unresponsive, keeps his eyes closed, and very spastic and rigid in his extremities. Infectious disease consultation has been requested to evaluate the patient with recurrent fevers. Notes reviewed D/W RN Temruy ok Had EGD today for GIB workup WBC better Repeat CXR with basilar infiltrates Has a lot of oral secretions Antibiotics Cefepime Vancomycin Past Medical History Chronic tracheostomy Recurrent aspiration pneumonia History of upper extremity DVT [place] hypertension Hyperlipidemia Diabetes History of pancreatitis and pseudocyst History of multidrug resistant infections including MRSA, and ESBL positive organism Recent treatment for viridans strep bacteremia related to a midline Past Surgical History Status post trach and revision Status post G-tube placement and revision Previous bronchoscopy Allergies: Coded Allergies: haloperidol (Unverified Adverse Reaction, Severe, Seizures, 03/30/17) Objective . Vital Signs Date Time Temp Pulse Resp B/P (MAP) Pulse Ox O2 Delivery O2 Flow Rate FiO2 03/31/17 13:00 82 03/31/17 12:00 98.1 89 11 122/66 (84) 100 03/31/17 12:00 89 03/31/17 11:00 79 03/31/17 10:00 82 03/31/17 09:00 86 03/31/17 08:06 100 T-piece 4.00 28 03/31/17 08:00 71 03/31/17 08:00 98.0 71 12 145/63 (90) 100 03/31/17 07:00 97 03/31/17 04:00 99.0 57 10 118/56 (76) 100 03/31/17 00:00 98.7 69 14 124/63 (83) 100 03/30/17 20:37 98 T-piece 28 03/30/17 20:00 98.8 98 12 164/90 (114) 99 03/30/17 18:00 92 03/30/17 16:37 98 T-piece 5.00 28 03/30/17 16:00 99.9 113 11 139/64 (89) 100 03/30/17 16:00 113 03/31/17 03/31/17 04/01/17 15:00 23:00 07:00 Intake Total 100 ml Balance 100 ml Other 100 ml . Laboratory Tests Test 03/30/17 04:00 03/30/17 11:43 03/31/17 05:40 White Blood Count 14.7 TH/MM3 9.6 TH/MM3 Red Blood Count 4.17 MIL/MM3 3.86 MIL/MM3 Hemoglobin 12.7 GM/DL 12.3 GM/DL Hematocrit 38.7 % 36.2 % Mean Corpuscular Volume 92.8 FL 93.7 FL Mean Corpuscular Hemoglobin 30.4 PG 32.0 PG Mean Corpuscular Hemoglobin Concent 32.8 % 34.1 % Red Cell Distribution Width 13.5 % 13.7 % Platelet Count 364 TH/MM3 153 TH/MM3 Mean Platelet Volume 10.1 FL 10.6 FL Neutrophils (%) (Auto) 85.5 % 65.1 % Lymphocytes (%) (Auto) 7.0 % 18.7 % Monocytes (%) (Auto) 6.6 % 13.7 % Eosinophils (%) (Auto) 0.7 % 1.9 % Basophils (%) (Auto) 0.2 % 0.6 % Neutrophils # (Auto) 12.6 TH/MM3 6.3 TH/MM3 Lymphocytes # (Auto) 1.0 TH/MM3 1.8 TH/MM3 Monocytes # (Auto) 1.0 TH/MM3 1.3 TH/MM3 Eosinophils # (Auto) 0.1 TH/MM3 0.2 TH/MM3 Basophils # (Auto) 0.0 TH/MM3 0.1 TH/MM3 CBC Comment AUTO DIFF DIFF FINAL Differential Comment AUTO DIFF CONFIRMED Platelet Estimate NORMAL Platelet Morphology Comment NORMAL Erythrocyte Sedimentation Rate 42 mm/hr Hematology Comments Laboratory Tests Test 03/30/17 04:00 03/30/17 07:35 03/30/17 11:43 03/31/17 05:40 Blood Urea Nitrogen 12 MG/DL 11 MG/DL Creatinine 0.84 MG/DL 0.67 MG/DL Random Glucose 119 MG/DL 69 MG/DL Total Protein 8.5 GM/DL 7.6 GM/DL Albumin 3.7 GM/DL 3.3 GM/DL Calcium Level 9.2 MG/DL 8.9 MG/DL Magnesium Level 2.3 MG/DL 2.1 MG/DL Alkaline Phosphatase 91 U/L 80 U/L Aspartate Amino Transf (AST/SGOT) 25 U/L 86 U/L Alanine Aminotransferase (ALT/SGPT) 60 U/L 69 U/L Total Bilirubin 0.2 MG/DL 0.5 MG/DL Sodium Level 137 MEQ/L 139 MEQ/L Potassium Level 4.0 MEQ/L 4.1 MEQ/L Chloride Level 101 MEQ/L 107 MEQ/L Carbon Dioxide Level 27.6 MEQ/L 21.6 MEQ/L Anion Gap 8 MEQ/L 10 MEQ/L Estimat Glomerular Filtration Rate 130 ML/MIN 169 ML/MIN Lactic Acid Level 2.4 mmol/L 3.4 mmol/L Troponin I LESS THAN 0.02 NG/ML C-Reactive Protein 1.18 MG/DL Procalcitonin 0.83 ng/mL Phosphorus Level 3.4 MG/DL Microbiology Date/Time Source Procedure Growth Status 03/30/17 04:00 Blood Peripheral Aerobic Blood Culture - Preliminary NO GROWTH IN 1 DAY Resulted 03/30/17 04:00 Blood Peripheral Anaerobic Blood Culture - Preliminary NO GROWTH IN 1 DAY Resulted 03/30/17 03:55 Blood Peripheral Aerobic Blood Culture - Preliminary NO GROWTH IN 1 DAY Resulted 03/30/17 03:55 Blood Peripheral Anaerobic Blood Culture - Preliminary NO GROWTH IN 1 DAY Resulted 03/30/17 10:00 Gastric Gastric Occult Blood - Final GASTROCCULT POSITIVE Complete Imaging Chest X-Ray 03/31/17 0600 Signed Impressions: Service Date/Time: Friday, March 31, 2017 03:39 - CONCLUSION: 1. Tracheostomy in good position. Cardiomegaly with subsegmental basilar dependent airspace disease. Stephan Rich MD Abdomen/Pelvis CT 03/30/17 0000 Signed Impressions: Service Date/Time: Thursday, March 30, 2017 15:46 - CONCLUSION: 1. The gastrojejunostomy tube remains in place. 2. Nonspecific nonobstructive bowel gas pattern which may represent a mild ileus or gastroenteritis. 3. Unremarkable gallbladder. 4. The study is degraded by mild motion and streak artifact. Clayton Mccray MD Abdomen X-Ray 03/30/17 0000 Signed Impressions: Service Date/Time: Thursday, March 30, 2017 04:37 - CONCLUSION: Diffusely dilated loops of bowel. Zachariah Jiménez MD Physical Exam GENERAL: keeps eyes closed, no interaction, not in respiratory distress, has chronic trach, drooling SKIN: Warm and dry. No generalized rash, no ecchymoses and no evidence of embolic lesions. HEAD: Atraumatic. Normocephalic. No temporal wasting, or tenderness. EYES: [place] conjunctiva. No petechia or hemorrhage. Pupils equal, round and reactive to light. No scleral icterus. No injection or drainage. EARS, NOSE AND THROAT: Nose without bleeding or purulent nasal discharge. Moist oral mucosa, has a lot of oral secretions coming out of his mouth. NECK: Trachea midline. Supple and no meningeal signs CARDIOVASCULAR: Tachycardic, regular rate and rhythm. No murmurs, rubs or gallops heard RESPIRATORY: Clear to auscultation. Breath sounds equal bilaterally. No rales , wheezing or rhonchi. Decreased at the bases. ABDOMEN: Soft, nondistended, bowel sounds present and normoactive. No reaction to palpation, no guarding. No organomegaly. PEG site ok EXTREMITIES: No clubbing, cyanosis, or edema. No joint effusion. Well perfused and warm. NEUROLOGICAL: Keeps eyes, closed, no interaction. Very spastic UE and LE. Both feet plantar flexed. 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
[2017-03-31] MEDS: SODIUM CHLOR 0.9% 1000 ML INJ 1,000 ML IV SCH ×2 (18:00→21:20)
[2017-04-01] VITALS (19 sets, daily range): BP systolic 110–149; BP diastolic 56–80; PULSE 62–94; RESP 9–22; TEMP 97.2–99.4; O2SAT 95–100
[2017-04-01] MEDS: PROPRANOLOL HCL 20 MG TAB PEG SCH ×4 (01:24→17:43)
[2017-04-01] MEDS: HYOSCYAMINE 0.125 MG TAB PO SCH ×6 (01:24→20:08)
[2017-04-01] MEDS: RESP: ALBUTEROL 2.5 MG/IPRATROPIUM 0.5 MG NEB (SCH) INH ×6 (03:45→23:40)
[2017-04-01] MEDS: CIPROFLOXACIN 0.3% OPTH SOLN 2.5 ML BTL EACH EYE SCH ×6 (04:00→20:00)
[2017-04-01] MEDS: CHLORHEXIDINE GLUCONATE 2 % 1 PACK (2 CLOTHS) TOP SCH (04:00)
[2017-04-01] MEDS: hydrALAZINE HCL 50 MG TAB PO SCH ×3 (04:35→20:12)
[2017-04-01] MEDS: CEFEPIME INJ 1,000 MG in SODIUM CHLORIDE 0.9% INJ 100 ML IV SCH ×2 (04:35→17:42)
[2017-04-01 06:08] LABS: AUTOMATED NEUTROPHIL # 5.1 TH/MM3 (1.8-7.7); BASOPHIL % 0.3 % (0.0-2.0); EOSINOPHIL # 0.1 TH/MM3 (0-0.4); EOSINOPHIL % 2.1 % (0.0-4.0); HEMATOCRIT 32.6 % (39.0-51.0); HEMO FLAGS DIFF FINAL; LYMPH % 14.4 % (9.0-44.0); MEAN CELL VOLUME 93.6 FL (80.0-100.0); MEAN CORPUSCULAR HEMOGLOBIN 31.9 PG (27.0-34.0); MEAN CORPUSCULAR HGB CONC 34.1 % (32.0-36.0); MONO % 9.9 % (0.0-8.0); NEUT % 73.3 % (16.0-70.0); PLATELET COUNT 183 TH/MM3 (150-450); RED BLOOD COUNT 3.48 MIL/MM3 (4.50-5.90); RED CELL DISTRIBUTION WIDTH 13.2 % (11.6-17.2); WHITE BLOOD COUNT 6.9 TH/MM3 (4.0-11.0)
[2017-04-01 06:22] LABS: ALT (GPT) 57 U/L (12-78); ANION GAP 9 MEQ/L (5-15); AST (GOT) 55 U/L (15-37); BICARBONATE 25.4 MEQ/L (21.0-32.0); BLOOD UREA NITROGEN 5 MG/DL (7-18); CHLORIDE 106 MEQ/L (98-107); GLOMERULAR FILTRATION RATE 231 ML/MIN (>89); MAGNESIUM 1.8 MG/DL (1.5-2.5); POTASSIUM 3.4 MEQ/L (3.5-5.1); SODIUM (NA) 140 MEQ/L (136-145)
[2017-04-01 06:24] LABS: ALKALINE PHOSPHATASE 76 U/L (45-117); TOTAL BILIRUBIN ADULT 0.4 MG/DL (0.2-1.0)
[2017-04-01] MEDS ORDERED: PHARMACY ORDERED LAB ONE (06:45)
[2017-04-01] MEDS ORDERED: POTASSIUM PHOSPHATE INJ 30 MMOL in SODIUM CHLOR 0.9% 250 ML INJ 250 ML IV PRN (08:00)
[2017-04-01] MEDS ORDERED: POTASSIUM PHOSPHATE MONOBASIC 500 MG TAB PO/TUBE PRN (08:00)
[2017-04-01] MEDS ORDERED: POTASSIUM CHLOR 20 MEQ PREMIX 100 ML IV PRN ×2 (08:00)
[2017-04-01] MEDS ORDERED: MAGNESIUM SULFATE INJ 2 GM in SODIUM CHLORIDE 0.9% INJ 96 ML IV PRN (08:00)
[2017-04-01] MEDS ORDERED: POTASSIUM CHLORIDE 25 MEQ EFFERVESCENT TAB PO PRN (08:00)
[2017-04-01] MEDS ORDERED: POTASSIUM PHOSPHATE MONOBASIC 500 MG TAB PO PRN (08:00)
[2017-04-01] MEDS ORDERED: POTASSIUM CHLOR 40 MEQ PREMIX 100 ML IV PRN ×2 (08:00)
[2017-04-01] MEDS ORDERED: MAGNESIUM SULFATE INJ 4 GM in SODIUM CHLORIDE 0.9% INJ 92 ML IV PRN (08:00)
[2017-04-01] MEDS ORDERED: MAGNESIUM OXIDE 400 MG TAB PO PRN (08:00)
[2017-04-01] MEDS ORDERED: SODIUM PHOSPHATE INJ 30 MMOL in SODIUM CHLOR 0.9% 250 ML INJ 240 ML IV PRN (08:00)
[2017-04-01] MEDS: RESP: TOBRAMYCIN SULFATE 80 MG/2 ML NEB NEB SCH ×3 (08:16→20:50)
--- NOTE | 2017-04-01 08:41 | HHI.PR ---
Subjective Remarks This is an unfortunate 31-year-old male with PMH of Traumatic Brain Injury and Persistent Vegetative State, s/p Trach/PEG, h/o DVT on Coumadin, Recurrent PNA/ Sepsis and Seizure Disorder who was brought to the ER secondary to fever and tachycardia. Multiple admissions for same, s/p treatment for Sepsis and returns within 24hrs for readmission due to recurrent symptoms. Most recent admit 03/21-03/29/17 for Sepsis/PNA, s/p eval by ID w/ completion of antibiotics. Shortly after arrival, developed fever/chills and tachycardia and sent back to ER. On arrival here, BP 142/88, HR 109, O2 sat 100% on trach, Temp 101.0 rectal. WBC 14.7, WBC 6.5 on 03/29/17. Chemistry unremarkable. Lactic Acid 2.4. CXR with no definite infiltrate. Abdominal X-ray with diffusely dilated loops of bowel. S/p Blood Cultures in ER. POSSIBLE ASPIRATION AT [facility] FEVERS NOTED POSSIBLE UPPER GI BLEED SYDNEE RN AND ID AM CHEST XRAY AM LABS 03-31 patient to have EGD later today Discussed with family at bedside Had gastro-occult positive gastroenterology was consult and will have an EGD today A.m. labs Continue current antibiotics per infectious disease 04-01 had EGD YESTERDAY WITH ESOPHAGITIS AND GASTRITIS--03/31/2017 patient has upper GI bleeding, nothing currently, upper endoscopy showed severe grade D esophagitis biopsy was done, mild gastritis biopsy was done, G J-tube is in place RESTART TUBE FEEDS REPLACE POTASSIUM SYDNEE MEDINA Objective Vitals Vital Signs Date Time Temp Pulse Resp B/P (MAP) Pulse Ox O2 Delivery O2 Flow Rate FiO2 04/01/17 07:54 T-piece 4.00 28 04/01/17 06:00 68 04/01/17 04:00 97.2 78 10 149/80 (103) 100 04/01/17 04:00 78 04/01/17 02:00 91 04/01/17 00:00 98.9 90 22 121/66 (84) 100 04/01/17 00:00 90 03/31/17 22:00 97 03/31/17 20:06 97 T-piece 6.00 28 03/31/17 20:00 98.9 03/31/17 20:00 98.9 85 20 152/67 (95) 97 03/31/17 20:00 85 03/31/17 19:00 80 03/31/17 18:00 94 03/31/17 17:00 102 03/31/17 16:00 94 03/31/17 16:00 98.1 94 21 165/72 (103) 99 03/31/17 15:00 69 03/31/17 14:00 81 03/31/17 13:00 82 03/31/17 12:00 98.1 89 11 122/66 (84) 100 03/31/17 12:00 89 03/31/17 11:00 79 03/31/17 10:00 82 03/31/17 09:00 86 I/O 03/31/17 03/31/17 03/31/17 04/01/17 04/01/17 04/01/17 07:00 15:00 23:00 07:00 15:00 23:00 Intake Total 512 ml 100 ml 562.5 ml 220 ml Output Total 750 ml 850 ml 1000 ml Balance -238 ml 100 ml -287.5 ml -780 ml Intake Oral 0 ml 0 ml IV Total 350 ml 362.5 ml Tube Feeding 102 ml 0 ml Tube Irrigant 60 ml Other 100 ml 200 ml 220 ml Output Urine Total 750 ml 850 ml 1000 ml # Bowel Movements 0 0 Result Diagram: 04/01/17 0446 04/01/17 0446 Other Results Laboratory Tests Test 03/30/17 04:00 03/30/17 07:35 03/30/17 09:50 03/30/17 11:43 White Blood Count 14.7 TH/MM3 Red Blood Count 4.17 MIL/MM3 Hemoglobin 12.7 GM/DL Hematocrit 38.7 % Mean Corpuscular Volume 92.8 FL Mean Corpuscular Hemoglobin 30.4 PG Mean Corpuscular Hemoglobin Concent 32.8 % Red Cell Distribution Width 13.5 % Platelet Count 364 TH/MM3 Mean Platelet Volume 10.1 FL Neutrophils (%) (Auto) 85.5 % Lymphocytes (%) (Auto) 7.0 % Monocytes (%) (Auto) 6.6 % Eosinophils (%) (Auto) 0.7 % Basophils (%) (Auto) 0.2 % Neutrophils # (Auto) 12.6 TH/MM3 Lymphocytes # (Auto) 1.0 TH/MM3 Monocytes # (Auto) 1.0 TH/MM3 Eosinophils # (Auto) 0.1 TH/MM3 Basophils # (Auto) 0.0 TH/MM3 CBC Comment AUTO DIFF Differential Comment AUTO DIFF CONFIRMED Platelet Estimate NORMAL Platelet Morphology Comment NORMAL Blood Urea Nitrogen 12 MG/DL Creatinine 0.84 MG/DL Random Glucose 119 MG/DL Total Protein 8.5 GM/DL Albumin 3.7 GM/DL Calcium Level 9.2 MG/DL Magnesium Level 2.3 MG/DL Alkaline Phosphatase 91 U/L Aspartate Amino Transf (AST/SGOT) 25 U/L Alanine Aminotransferase (ALT/SGPT) 60 U/L Total Bilirubin 0.2 MG/DL Sodium Level 137 MEQ/L Potassium Level 4.0 MEQ/L Chloride Level 101 MEQ/L Carbon Dioxide Level 27.6 MEQ/L Anion Gap 8 MEQ/L Estimat Glomerular Filtration Rate 130 ML/MIN Lactic Acid Level 2.4 mmol/L 3.4 mmol/L Troponin I LESS THAN 0.02 NG/ML Nasal Screen MRSA (PCR) MRSA DETECTED Erythrocyte Sedimentation Rate 42 mm/hr C-Reactive Protein 1.18 MG/DL Procalcitonin 0.83 ng/mL Test 03/30/17 15:20 03/31/17 05:40 04/01/17 04:46 Urine Color YELLOW Urine Turbidity CLEAR Urine pH 7.0 Urine Specific [place] 1.028 Urine Protein 30 mg/dL Urine Glucose (UA) NEG mg/dL Urine Ketones 10 mg/dL Urine Occult Blood SMALL Urine Nitrite NEG Urine Bilirubin NEG Urine Urobilinogen LESS THAN 2.0 MG/DL Urine Leukocyte Esterase NEG Urine RBC 1 /hpf Urine WBC 4 /hpf Urine Mucus FEW /lpf Microscopic Urinalysis Comment CATH-CULT NOT IND White Blood Count 9.6 TH/MM3 6.9 TH/MM3 Red Blood Count 3.86 MIL/MM3 3.48 MIL/MM3 Hemoglobin 12.3 GM/DL 11.1 GM/DL Hematocrit 36.2 % 32.6 % Mean Corpuscular Volume 93.7 FL 93.6 FL Mean Corpuscular Hemoglobin 32.0 PG 31.9 PG Mean Corpuscular Hemoglobin Concent 34.1 % 34.1 % Red Cell Distribution Width 13.7 % 13.2 % Platelet Count 153 TH/MM3 183 TH/MM3 Mean Platelet Volume 10.6 FL 10.3 FL Neutrophils (%) (Auto) 65.1 % 73.3 % Lymphocytes (%) (Auto) 18.7 % 14.4 % Monocytes (%) (Auto) 13.7 % 9.9 % Eosinophils (%) (Auto) 1.9 % 2.1 % Basophils (%) (Auto) 0.6 % 0.3 % Neutrophils # (Auto) 6.3 TH/MM3 5.1 TH/MM3 Lymphocytes # (Auto) 1.8 TH/MM3 1.0 TH/MM3 Monocytes # (Auto) 1.3 TH/MM3 0.7 TH/MM3 Eosinophils # (Auto) 0.2 TH/MM3 0.1 TH/MM3 Basophils # (Auto) 0.1 TH/MM3 0.0 TH/MM3 CBC Comment DIFF FINAL DIFF FINAL Differential Comment Hematology Comments Blood Urea Nitrogen 11 MG/DL 5 MG/DL Creatinine 0.67 MG/DL 0.51 MG/DL Random Glucose 69 MG/DL 72 MG/DL Total Protein 7.6 GM/DL 6.7 GM/DL Albumin 3.3 GM/DL 2.8 GM/DL Calcium Level 8.9 MG/DL 8.4 MG/DL Phosphorus Level 3.4 MG/DL 3.1 MG/DL Magnesium Level 2.1 MG/DL 1.8 MG/DL Alkaline Phosphatase 80 U/L 76 U/L Aspartate Amino Transf (AST/SGOT) 86 U/L 55 U/L Alanine Aminotransferase (ALT/SGPT) 69 U/L 57 U/L Total Bilirubin 0.5 MG/DL 0.4 MG/DL Sodium Level 139 MEQ/L 140 MEQ/L Potassium Level 4.1 MEQ/L 3.4 MEQ/L Chloride Level 107 MEQ/L 106 MEQ/L Carbon Dioxide Level 21.6 MEQ/L 25.4 MEQ/L Anion Gap 10 MEQ/L 9 MEQ/L Estimat Glomerular Filtration Rate 169 ML/MIN 231 ML/MIN Vancomycin Level Trough 18.7 MCG/ML Imaging Last Impressions Chest X-Ray 03/31/17 0600 Signed Impressions: Service Date/Time: Friday, March 31, 2017 03:39 - CONCLUSION: 1. Tracheostomy in good position. Cardiomegaly with subsegmental basilar dependent airspace disease. Stephan Rich MD Abdomen/Pelvis CT 03/30/17 0000 Signed Impressions: Service Date/Time: Thursday, March 30, 2017 15:46 - CONCLUSION: 1. The gastrojejunostomy tube remains in place. 2. Nonspecific nonobstructive bowel gas pattern which may represent a mild ileus or gastroenteritis. 3. Unremarkable gallbladder. 4. The study is degraded by mild motion and streak artifact. Clayton Mccray MD Abdomen X-Ray 03/30/17 0000 Signed Impressions: Service Date/Time: Thursday, March 30, 2017 04:37 - CONCLUSION: Diffusely dilated loops of bowel. Zachariah Jiménez MD Objective Remarks GENERAL: COMPLETELY NONVERBAL SKIN: Warm and dry. HEAD: Atraumatic. Normocephalic. EYES: Pupils equal and round. No scleral icterus. No injection or drainage. ENT: No nasal bleeding or discharge. Mucous membranes pink and moist. NECK: Trachea midline. No JVD. TRACHEOSTOMY IN PLACE ON T-TUBE CARDIOVASCULAR: Regular rate and rhythm. S1,S2 NO S3 OR S4 RESPIRATORY: No accessory muscle use. COARSE BREATH SOUNDS BL, RHONCHI. Breath sounds equal bilaterally. GASTROINTESTINAL: Abdomen soft, non-tender, nondistended. Hepatic and splenic margins not palpable. PEG--CONDOM CATHETER MUSCULOSKELETAL: Extremities without clubbing, cyanosis, or edema. No obvious deformities. NEUROLOGICAL: NOT Awake and alert. obvious cranial nerve deficits. NOT ABLE TO ASSESS MOTOR OR SENSORY. PSYCHIATRIC: INAppropriate mood and affect; insight and judgment ABnormal. NONVERBAL UNABLE TO ASSESS Procedures 03/31/2017 patient has upper GI bleeding, nothing currently, upper endoscopy showed severe grade D esophagitis biopsy was done, mild gastritis biopsy was done, G J-tube is in place EGD 03-31 Medications and IVs Current Medications Sodium Chloride 1,000 ml @ 2,000 mls/hr Q30M ONCE IV Last administered on 03/30 04:00; Start 03/30/17 at 04:00; Stop 03/30/17 at 04:29; Status DC Ondansetron HCl (Zofran Inj) 4 mg ONCE ONCE IV PUSH Last administered on 05:25; Start 03/30/17 at 04:00; Stop 03/30/17 at 04:01; Status DC Sodium Chloride 1,000 ml @ 2,000 mls/hr Q30M ONCE IV Last administered on 03/30 04:15; Start 03/30/17 at 04:15; Stop 03/30/17 at 04:44; Status DC Lorazepam (Ativan Inj) 1 mg ONCE ONCE IV PUSH Last administered on 03/30/17 05:24; Start 03/30/17 at 04:30; Stop 03/30/17 at 04:31; Status DC Amlodipine Besylate (Norvasc) 10 mg DAILY PEG Last administered on 03/31/17 08 :14; Start 03/30/17 at 09:00 Apixaban (Eliquis) 5 mg BID G-TUBE Last administered on 03/31/17 20:12; Start 03/30/17 at 09:00 Atropine Sulfate (Atropine 1% Opth Soln) 1 drop Q12HR PRN SL For mild/moderate secretions; Start 03/30/17 at 05:30 Baclofen (Lioresal) 20 mg TID G-TUBE Last administered on 03/31/17 18:00; Start 03/30/17 at 09:00 Bisacodyl (Dulcolax Ec) 5 mg DAILY PRN PO CONSTIPATION; Start 03/30/17 at 05:30 ; Status Cancel Ciprofloxacin HCl (Ciloxan 0.3% Opth Soln) 1 drop Q4HR EACH EYE Last administered on 04/01/17 04:00; Start 03/30/17 at 08:00 Famotidine (Pepcid) 40 mg DAILY G-TUBE Last administered on 03/31/17 08:14; Start 03/30/17 at 09:00; Stop 03/31/17 at 13:48; Status DC Guaifenesin (Robitussin Liq) 100 mg Q4H PRN PO COUGH; Start 03/30/17 at 05:30 Hydralazine HCl (Apresoline) 50 mg Q8HR PO Last administered on 04/01/17 04:35 ; Start 03/30/17 at 06:00 Hyoscyamine Sulfate (Levsin) 0.125 mg Q4HR PO Last administered on 04/01/17 04 :35; Start 03/30/17 at 08:00 Albuterol/ Ipratropium (Duoneb Neb) 1 ampule Q4HR NEB INH Last administered on 04/01/17 07:54; Start 03/30/17 at 08:00 Levetriacetam (Keppra) 1,000 mg BID G-TUBE Last administered on 03/31/17 20:12 ; Start 03/30/17 at 09:00 Lorazepam (Ativan) 1 mg Q4H PRN G-TUBE for severe anxiety or dyspnea; Start at 05:30 Propranolol HCl (Inderal) 20 mg Q6HR PEG Last administered on 04/01/17 04:35; Start 03/30/17 at 06:00 Senna/Docusate Sodium (Sanam-Colace) 2 tab BID PEG ; Start 03/30/17 at 09:00; Status Cancel Tobramycin Sulfate (Tobramycin Neb) 80 mg Q12HR NEB NEB Last administered on 08:16; Start 03/30/17 at 08:00 Loratadine (Claritin) 5 mg DAILY G-TUBE Last administered on 03/31/17 08:15; Start 03/30/17 at 09:00 Sodium Chloride 1,000 ml @ 100 mls/hr Q10H IV Last administered on 03/31/17 21:20; Start 03/30/17 at 05:20 Sodium Chloride (NS Flush) 2 ml UNSCH PRN IV FLUSH FLUSH AFTER USING IV ACCESS ; Start 03/30/17 at 05:30 Sodium Chloride (NS Flush) 2 ml BID IV FLUSH Last administered on 03/31/17 20: 12; Start 03/30/17 at 09:00 Ondansetron HCl (Zofran Inj) 4 mg Q6H PRN IVP NAUSEA OR VOMITING Last administered on 03/30/17 09:10; Start 03/30/17 at 05:30 Morphine Sulfate (Morphine Inj) 1 mg Q3H PRN IV PUSH Pain 3-5; Start 03/30/17 at 05:30 Morphine Sulfate (Morphine Inj) 2 mg Q3H PRN IV PUSH Pain 6-10 Last administered on 03/30/17 23:19; Start 03/30/17 at 05:30 Acetaminophen (Ofirmev 1000 Mg/ 100 ml Inj) 1,000 mg Q6H PRN IV FEVER; Start at 05:30; Stop 03/30/17 at 10:09; Status DC Senna/Docusate Sodium (Sanam-Colace) 1 tab BID PO Last administered on 20:12; Start 03/30/17 at 09:00 Magnesium Hydroxide (Milk Of Magnesia Liq) 30 ml Q12H PRN PO MILD - MODERATE CONSTIPATION; Start 03/30/17 at 05:30 Sennosides (Senokot) 17.2 mg Q12H PRN PO MODERATE - SEVERE CONSTIPATION; Start 03/30/17 at 05:30 Bisacodyl (Dulcolax Supp) 10 mg DAILY PRN RECTAL SEVERE CONSITIPATION; Start at 05:30 Lactulose (Lactulose Liq) 30 ml DAILY PRN PO SEVERE CONSITIPATION; Start at 05:30 Pharmacy Profile Note 0 ml @ 0 mls/hr UNSCH OTHER ; Start 03/30/17 at 05:45 Cefepime HCl 1000 mg/Sodium Chloride 100 ml @ 200 mls/hr Q12H IV Last administered on 04/01/17 04:35; Start 03/30/17 at 06:00 Vancomycin HCl 1000 mg/Sodium Chloride 250 ml @ 250 mls/hr ONCE ONCE IV Last administered on 03/30/17 07:18; Start 03/30/17 at 06:00; Stop 03/30/17 at 06:59 ; Status DC Lorazepam (Ativan Inj) 1 mg Q2H PRN IV PUSH AGITATION Last administered on 03/30 09:10; Start 03/30/17 at 06:30 Miscellaneous Information 1 [id number] XX ; Start 03/30/17 at 06:30 Chlorhexidine Gluconate (Chlorhexidine 2% Cloth) 3 pack Taper DAILY@04 TOP Last administered on 04/01/17 04:00; Start 03/31/17 at 04:00; Stop 03/27/18 at 03:59 Chlorhexidine Gluconate (Chlorhexidine 2% Cloth) 3 pack UNSCH PRN TOP HYGIENIC CARE; Start 03/30/17 at 06:30 Acetaminophen (Tylenol) 650 mg Q6H PRN PO INCREASED TEMPERATURE; Start at 10:00; Status Cancel Clonidine (Catapres) 0.1 mg Q6H PRN PO SBP>160, DBP>90 Last administered on 23:03; Start 03/30/17 at 10:00 Metoprolol Tartrate (Lopressor) 25 mg BID PRN PO HR>110; Start 03/30/17 at 10: 00 Oxycodone/ Acetaminophen (Percocet 5-325 Mg) 1 tab Q6H PRN PO PAIN; Start at 10:00; Status UNV Potassium Bicarb/ Potassium Chloride (K-Lyte Cl Eff) 25 meq Q12HR PEG Last administered on 03/31/17 20:12; Start 03/30/17 at 21:00 Acetaminophen (Tylenol 650 Mg/ 20 ml Liq) 650 mg Q6H PRN PO FEVER Last administered on 03/30/17 11:26; Start 03/30/17 at 10:15 Acetaminophen (Tylenol Supp) 650 mg Q6H PRN RECTAL FEVER; Start 03/30/17 at 10: 15 Vancomycin HCl 1250 mg/Sodium Chloride 262.5 ml @ 250 mls/hr Q8H IV Last administered on 03/31/17 23:00; Start 03/30/17 at 15:00 Miscellaneous Information SPECIFIC LAB TO BE JEWEL... ONCE ONCE .XX Last administered on 03/31/17 04:46; Start 03/31/17 at 06:45; Stop 03/31/17 at 06:46 ; Status DC Iohexol (Omnipaque 350 Inj) 100 ml STK-MED ONCE IVCONTRAST Last administered on 03/30/17 16:09; Start 03/30/17 at 16:09; Stop 03/30/17 at 16:10; Status DC Miscellaneous Information SPECIFIC LAB TO BE JEWEL... ONCE ONCE .XX ; Start 04/01 at 06:45; Stop 04/01/17 at 06:46; Status DC Pantoprazole Sodium (Protonix) 20 mg ONCE ONCE PO Last administered on 15:28; Start 03/31/17 at 14:00; Stop 03/31/17 at 14:01; Status DC Potassium Chloride 100 ml @ 50 mls/hr Q2H PRN IV For Potassium 2.8 - 3.2 mEq/L ; Start 04/01/17 at 08:00 Potassium Chloride 100 ml @ 50 mls/hr Q2H PRN IV For Potassium 2.8 - 3.2 mEq/L ; Start 04/01/17 at 08:00 Potassium Bicarb/ Potassium Chloride (K-Lyte Cl Eff) 50 meq UNSCH PRN PO For Potassium 3.3 - 3.5 mEq/L; Start 04/01/17 at 08:00 Potassium Chloride 100 ml @ 25 mls/hr UNSCH PRN IV For Potassium 3.3 - 3.5 mEq /L; Start 04/01/17 at 08:00 Potassium Chloride 100 ml @ 50 mls/hr Q2H PRN IV For Potassium 3.3 - 3.5 mEq/L ; Start 04/01/17 at 08:00 Magnesium Sulfate 4 gm/Sodium Chloride 100 ml @ 50 mls/hr UNSCH PRN IV For Magnesium 0.9 - 1.1 mg/dL; Start 04/01/17 at 08:00 Magnesium Oxide (Mag-Ox) 800 mg UNSCH PRN PO For Magnesium 1.2 - 1.6 mg/dL; Start 04/01/17 at 08:00 Magnesium Sulfate 2 gm/Sodium Chloride 100 ml @ 50 mls/hr UNSCH PRN IV For Magnesium 1.2 - 1.6 mg/dL; Start 04/01/17 at 08:00 Potassium Phosphate (K-Phos) 2,000 mg Q4H PRN PO For Phosphorus < 2.5 mg/dL; Start 04/01/17 at 08:00 Sodium Phosphate 30 mmol/Sodium Chloride 250 ml @ 42 mls/hr UNSCH PRN IV For Phosphorus < 2.5 mg/dL; Start 04/01/17 at 08:00 Potassium Phosphate (K-Phos) 2,000 mg UNSCH PRN PO/TUBE SEE LABEL COMMENTS; Start 04/01/17 at 08:00 Potassium Phosphate 30 mmol/ Sodium Chloride 260 ml @ 42 mls/hr UNSCH PRN IV SEE LABEL COMMENTS; Start 04/01/17 at 08:00 Urinary Catheter: No Vascular Central Line Catheter: No A/P Problem List: (1) Sepsis ICD Code: A41.9 - Sepsis, unspecified organism Status: Resolved (2) Chronic respiratory failure ICD Code: J96.10 - Chronic respiratory failure, unspecified whether with hypoxia or hypercapnia (3) History of DVT (deep vein thrombosis) ICD Code: Z86.718 - Personal history of other venous thrombosis and embolism Status: Acute (4) Permanent vegetative state ICD Code: R40.3 - Persistent vegetative state Status: Acute (5) Seizure disorder ICD Code: G40.909 - Epilepsy, unspecified, not intractable, without status epilepticus Assessment and Plan 1. Sepsis: Recurrent, multiple admissions for same. Unclear source. Recent admit 03/21-03/29/17 for same, s/p completion of IV Abx and eval by ID. Temp 102.2 rectal, WBC 14.7, previously 6.5 on 03/29/17. CXR w/ no acute findings, images reviewed by me. U/a pending. S/p Blood Cultures in ER. Re-consult ID for further recommendations as unclear if infectious etiology. H/o Pseudomonas PNA on 03/23/17, cultures otherwise negative. 2. Chronic Respiratory Failure: S/p Trach, O2 sat stable at 100% on T-piece. CXR w/ no acute findings, images reviewed by me. Resume home DuoNeb, Tobra Neb 3. H/o DVT: on Eliquis, will continue. 4. 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 Chronic. At baseline. 5. Seizure Disorder: No seizure activity noted. Resume home medications. 6. DVT Prophylaxis: Continue home Eliquis POSSIBLE ASPIRATION AT NURSING FACILITY- NO FEVERS HERE- RESTART TUBE FEEDS FEVERS HX PSEUDOMONAS PNA CHECK GASTROCCULT-was positive to undergo EGD today March 31 RESTART TUBE FEEDS DW RN AND ID EGD ON 03-31 SHOWED 03/31/2017 patient has upper GI bleeding, nothing currently, upper endoscopy showed severe grade D esophagitis biopsy was done, mild gastritis biopsy was done, G J-tube is in place Has remained afebrile since coming to the ICU Hudson Luz DO Apr 01, 2017 08:41
[2017-04-01] MEDS: LORATADINE 10 MG TAB G-TUBE SCH (08:57)
[2017-04-01] MEDS: levETIRAcetam 500 MG TAB G-TUBE SCH ×2 (08:58→20:08)
[2017-04-01] MEDS: POTASSIUM CHLORIDE 25 MEQ EFFERVESCENT TAB PEG SCH ×2 (08:58→20:08)
[2017-04-01] MEDS: SODIUM CHLORIDE 0.9% FLUSH 10 ML FLUSH IV FLUSH SCH ×2 (08:58→20:08)
[2017-04-01] MEDS: DOCUSATE SODIUM 50 MG/SENNA 8.6 MG TAB PO SCH ×2 (08:58→20:12)
[2017-04-01] MEDS: APIXABAN 5 MG TABLET G-TUBE SCH ×2 (08:58→20:08)
[2017-04-01] MEDS: BACLOFEN 20 MG TAB G-TUBE SCH ×3 (08:58→17:43)
--- NOTE | 2017-04-01 09:22 | HHI.IDPN ---
Subjective Subjective Remarks Patient is a 31-year-old male, well-known to me, recently discharged from the hospital March 29, readmitted for recurrent fevers. This is his third admission since February. He was admitted February 21 and at that time he was found to have viridans strep sepsis, as well as Pseudomonas pneumonia. Required ventilatory support at that time, and he improved. He has a chronic trach. At one time he required bronchoscopy during that hospitalization for hemoptysis, and that resolved, and no active bleeding was seen during bronchoscopy. He completed treatment for his bacteremia and pneumonia, and he was discharged back to the [facility] on March 20. He was readmitted for fevers, and again received treatment for Pseudomonas pneumonia. He was stable, and went back to the [facility] on March 29, and came back because of fevers. His temperature was up to 102+, he is tachycardic between 140-150. He had a chest x-ray which was limited but there was no obvious infiltrates. He did not have any central line. He has a condom catheter in place. There is been no real change with his neurological status. There is also been no mention of any diarrhea. His WBC was up to 14. He is not on pressors. He is on T piece with good sats. He has a lot of drooling from his mouth. His neurological status remains the same, and that he is unresponsive, keeps his eyes closed, and very spastic and rigid in his extremities. Infectious disease consultation has been requested to evaluate the patient with recurrent fevers. Notes reviewed Temps ok Had EGD today for GIB workup WBC down to normal Light yellow trach secretions A lot oral secretions Last CXR with basilar infiltrates Antibiotics Cefepime Vancomycin Lines PIV Past Medical History Chronic tracheostomy Recurrent aspiration pneumonia History of upper extremity DVT [place] hypertension Hyperlipidemia Diabetes History of pancreatitis and pseudocyst History of multidrug resistant infections including MRSA, and ESBL positive organism Recent treatment for viridans strep bacteremia related to a midline Past Surgical History Status post trach and revision Status post G-tube placement and revision Previous bronchoscopy Allergies: Coded Allergies: haloperidol (Unverified Adverse Reaction, Severe, Seizures, 03/30/17) Objective . Vital Signs Date Time Temp Pulse Resp B/P (MAP) Pulse Ox O2 Delivery O2 Flow Rate FiO2 04/01/17 07:54 T-piece 4.00 28 04/01/17 06:00 68 04/01/17 04:00 97.2 78 10 149/80 (103) 100 04/01/17 04:00 78 04/01/17 02:00 91 04/01/17 00:00 98.9 90 22 121/66 (84) 100 04/01/17 00:00 90 03/31/17 22:00 97 03/31/17 20:06 97 T-piece 6.00 28 03/31/17 20:00 98.9 03/31/17 20:00 98.9 85 20 152/67 (95) 97 03/31/17 20:00 85 03/31/17 19:00 80 03/31/17 18:00 94 03/31/17 17:00 102 03/31/17 16:00 94 03/31/17 16:00 98.1 94 21 165/72 (103) 99 03/31/17 15:00 69 03/31/17 14:00 81 03/31/17 13:00 82 03/31/17 12:00 98.1 89 11 122/66 (84) 100 03/31/17 12:00 89 03/31/17 11:00 79 03/31/17 10:00 82 . Laboratory Tests Test 03/30/17 11:43 03/31/17 05:40 04/01/17 04:46 Erythrocyte Sedimentation Rate 42 mm/hr White Blood Count 9.6 TH/MM3 6.9 TH/MM3 Red Blood Count 3.86 MIL/MM3 3.48 MIL/MM3 Hemoglobin 12.3 GM/DL 11.1 GM/DL Hematocrit 36.2 % 32.6 % Mean Corpuscular Volume 93.7 FL 93.6 FL Mean Corpuscular Hemoglobin 32.0 PG 31.9 PG Mean Corpuscular Hemoglobin Concent 34.1 % 34.1 % Red Cell Distribution Width 13.7 % 13.2 % Platelet Count 153 TH/MM3 183 TH/MM3 Mean Platelet Volume 10.6 FL 10.3 FL Neutrophils (%) (Auto) 65.1 % 73.3 % Lymphocytes (%) (Auto) 18.7 % 14.4 % Monocytes (%) (Auto) 13.7 % 9.9 % Eosinophils (%) (Auto) 1.9 % 2.1 % Basophils (%) (Auto) 0.6 % 0.3 % Neutrophils # (Auto) 6.3 TH/MM3 5.1 TH/MM3 Lymphocytes # (Auto) 1.8 TH/MM3 1.0 TH/MM3 Monocytes # (Auto) 1.3 TH/MM3 0.7 TH/MM3 Eosinophils # (Auto) 0.2 TH/MM3 0.1 TH/MM3 Basophils # (Auto) 0.1 TH/MM3 0.0 TH/MM3 CBC Comment DIFF FINAL DIFF FINAL Differential Comment Hematology Comments Laboratory Tests Test 03/30/17 11:43 03/31/17 05:40 04/01/17 04:46 C-Reactive Protein 1.18 MG/DL Procalcitonin 0.83 ng/mL Blood Urea Nitrogen 11 MG/DL 5 MG/DL Creatinine 0.67 MG/DL 0.51 MG/DL Random Glucose 69 MG/DL 72 MG/DL Total Protein 7.6 GM/DL 6.7 GM/DL Albumin 3.3 GM/DL 2.8 GM/DL Calcium Level 8.9 MG/DL 8.4 MG/DL Phosphorus Level 3.4 MG/DL 3.1 MG/DL Magnesium Level 2.1 MG/DL 1.8 MG/DL Alkaline Phosphatase 80 U/L 76 U/L Aspartate Amino Transf (AST/SGOT) 86 U/L 55 U/L Alanine Aminotransferase (ALT/SGPT) 69 U/L 57 U/L Total Bilirubin 0.5 MG/DL 0.4 MG/DL Sodium Level 139 MEQ/L 140 MEQ/L Potassium Level 4.1 MEQ/L 3.4 MEQ/L Chloride Level 107 MEQ/L 106 MEQ/L Carbon Dioxide Level 21.6 MEQ/L 25.4 MEQ/L Anion Gap 10 MEQ/L 9 MEQ/L Estimat Glomerular Filtration Rate 169 ML/MIN 231 ML/MIN Microbiology Date/Time Source Procedure Growth Status 03/30/17 04:00 Blood Peripheral Aerobic Blood Culture - Preliminary NO GROWTH IN 1 DAY Resulted 03/30/17 04:00 Blood Peripheral Anaerobic Blood Culture - Preliminary NO GROWTH IN 1 DAY Resulted 03/30/17 03:55 Blood Peripheral Aerobic Blood Culture - Preliminary NO GROWTH IN 1 DAY Resulted 03/30/17 03:55 Blood Peripheral Anaerobic Blood Culture - Preliminary NO GROWTH IN 1 DAY Resulted 03/30/17 10:00 Gastric Gastric Occult Blood - Final GASTROCCULT POSITIVE Complete 04/01/17 01:30 Sputum Endotracheal Gram Stain Pending Received 04/01/17 01:30 Sputum Endotracheal Sputum Culture Pending Received Imaging Chest X-Ray 03/31/17 0600 Signed Impressions: Service Date/Time: Friday, March 31, 2017 03:39 - CONCLUSION: 1. Tracheostomy in good position. Cardiomegaly with subsegmental basilar dependent airspace disease. Stephan Rich MD Abdomen/Pelvis CT 03/30/17 0000 Signed Impressions: Service Date/Time: Thursday, March 30, 2017 15:46 - CONCLUSION: 1. The gastrojejunostomy tube remains in place. 2. Nonspecific nonobstructive bowel gas pattern which may represent a mild ileus or gastroenteritis. 3. Unremarkable gallbladder. 4. The study is degraded by mild motion and streak artifact. Clayton Mccray MD Abdomen X-Ray 03/30/17 0000 Signed Impressions: Service Date/Time: Thursday, March 30, 2017 04:37 - CONCLUSION: Diffusely dilated loops of bowel. Zachariah Jiménez MD Physical Exam GENERAL: Opens eyes when stimulated, no interaction, not in respiratory distress, has chronic trach, drooling SKIN: Warm and dry. No generalized rash, no ecchymoses and no evidence of embolic lesions. HEAD: Atraumatic. Normocephalic. No temporal wasting, or tenderness. EYES: [place] conjunctiva. No petechia or hemorrhage. Pupils equal, round and reactive to light. No scleral icterus. No injection or drainage. EARS, NOSE AND THROAT: Nose without bleeding or purulent nasal discharge. Moist oral mucosa, has a lot of oral secretions coming out of his mouth. NECK: Trachea midline. Supple and no meningeal signs CARDIOVASCULAR: Tachycardic, regular rate and rhythm. No murmurs, rubs or gallops heard RESPIRATORY: Clear to auscultation. Breath sounds equal bilaterally. No rales , wheezing or rhonchi. Decreased at the bases. ABDOMEN: Soft, nondistended, bowel sounds present and normoactive. No reaction to palpation, no guarding. No organomegaly. PEG site ok EXTREMITIES: No clubbing, cyanosis, or edema. No joint effusion. Well perfused and warm. NEUROLOGICAL: No interaction. Very spastic UE and LE. Both feet plantar flexed. 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
--- NOTE | 2017-04-01 09:52 | HHI.GIFU ---
Subjective Remarks Resting in bed, no distress. G/J tube worn, intermittent difficulty flushing. No active bleeding. Objective Vitals I&O Vital Signs Date Time Temp Pulse Resp B/P (MAP) Pulse Ox O2 Delivery O2 Flow Rate FiO2 04/01/17 07:54 T-piece 4.00 28 04/01/17 06:00 68 04/01/17 04:00 97.2 78 10 149/80 (103) 100 04/01/17 04:00 78 04/01/17 02:00 91 04/01/17 00:00 98.9 90 22 121/66 (84) 100 04/01/17 00:00 90 03/31/17 22:00 97 03/31/17 20:06 97 T-piece 6.00 28 03/31/17 20:00 98.9 03/31/17 20:00 98.9 85 20 152/67 (95) 97 03/31/17 20:00 85 03/31/17 19:00 80 03/31/17 18:00 94 03/31/17 17:00 102 03/31/17 16:00 94 03/31/17 16:00 98.1 94 21 165/72 (103) 99 03/31/17 15:00 69 03/31/17 14:00 81 03/31/17 13:00 82 03/31/17 12:00 98.1 89 11 122/66 (84) 100 03/31/17 12:00 89 03/31/17 11:00 79 03/31/17 10:00 82 I/O 03/31/17 03/31/17 03/31/17 04/01/17 04/01/17 04/01/17 07:00 15:00 23:00 07:00 15:00 23:00 Intake Total 512 ml 100 ml 562.5 ml 220 ml Output Total 750 ml 850 ml 1000 ml Balance -238 ml 100 ml -287.5 ml -780 ml Intake Oral 0 ml 0 ml IV Total 350 ml 362.5 ml Tube Feeding 102 ml 0 ml Tube Irrigant 60 ml Other 100 ml 200 ml 220 ml Output Urine Total 750 ml 850 ml 1000 ml # Bowel Movements 0 0 Laboratory Laboratory Tests Test 04/01/17 04:46 White Blood Count 6.9 Red Blood Count 3.48 Hemoglobin 11.1 Hematocrit 32.6 Mean Corpuscular Volume 93.6 Mean Corpuscular Hemoglobin 31.9 Mean Corpuscular Hemoglobin Concent 34.1 Red Cell Distribution Width 13.2 Platelet Count 183 Mean Platelet Volume 10.3 Neutrophils (%) (Auto) 73.3 Lymphocytes (%) (Auto) 14.4 Monocytes (%) (Auto) 9.9 Eosinophils (%) (Auto) 2.1 Basophils (%) (Auto) 0.3 Neutrophils # (Auto) 5.1 Lymphocytes # (Auto) 1.0 Monocytes # (Auto) 0.7 Eosinophils # (Auto) 0.1 Basophils # (Auto) 0.0 CBC Comment DIFF FINAL Differential Comment Blood Urea Nitrogen 5 Creatinine 0.51 Random Glucose 72 Total Protein 6.7 Albumin 2.8 Calcium Level 8.4 Phosphorus Level 3.1 Magnesium Level 1.8 Alkaline Phosphatase 76 Aspartate Amino Transf (AST/SGOT) 55 Alanine Aminotransferase (ALT/SGPT) 57 Total Bilirubin 0.4 Sodium Level 140 Potassium Level 3.4 Chloride Level 106 Carbon Dioxide Level 25.4 Anion Gap 9 Estimat Glomerular Filtration Rate 231 Date/Time Source Procedure Growth Status 03/30/17 04:00 Blood Peripheral Aerobic Blood Culture - Preliminary NO GROWTH IN 1 DAY Resulted 03/30/17 04:00 Blood Peripheral Anaerobic Blood Culture - Preliminary NO GROWTH IN 1 DAY Resulted 03/30/17 10:00 Gastric Gastric Occult Blood - Final GASTROCCULT POSITIVE Complete 04/01/17 01:30 Sputum Endotracheal Gram Stain - Final Resulted 04/01/17 01:30 Sputum Endotracheal Sputum Culture Pending Resulted Imaging Last Impressions Chest X-Ray 03/31/17 0600 Signed Impressions: Service Date/Time: Friday, March 31, 2017 03:39 - CONCLUSION: 1. Tracheostomy in good position. Cardiomegaly with subsegmental basilar dependent airspace disease. Stephan Rich MD Abdomen/Pelvis CT 03/30/17 0000 Signed Impressions: Service Date/Time: Thursday, March 30, 2017 15:46 - CONCLUSION: 1. The gastrojejunostomy tube remains in place. 2. Nonspecific nonobstructive bowel gas pattern which may represent a mild ileus or gastroenteritis. 3. Unremarkable gallbladder. 4. The study is degraded by mild motion and streak artifact. Clayton Mccray MD Abdomen X-Ray 03/30/17 0000 Signed Impressions: Service Date/Time: Thursday, March 30, 2017 04:37 - CONCLUSION: Diffusely dilated loops of bowel. Zachariah Jiménez MD Physical Exam HEENT: Normocephalic; atraumatic; no jaundice. CHEST: Tracheostomy, t-bar, course breath sounds CARDIAC: RRR ABDOMEN: Soft, nondistended, nontender; no hepatosplenomegaly; bowel sounds are present in all four quadrants. G/J tube clamped EXTREMITIES: Mild gen. edema. Contracted SKIN: Normal; no rash; no jaundice. [employer] INTEGRATOR: Nonverbal. Does not follow commands Assessment and Plan Plan ASSESSMENT: - Upper GI bleed. Dark red liquid was suctioned from orotracheal, Gastroccult positive. S/P EGD (03/31/17)---> Esophagitis, gastritis. Pathology pending. No active bleeding. HH 11.1/32.6. - Dysphagia. Has G/J tube, although nurse reports that it is worn and they have intermittent difficulty flushing this. Will ask IR to replace G/J tube. - Sepsis, recurrent, unclear etiology. Possible aspiration. CXR (03/31/17)---> tracheostomy in good position, cardiomegaly with subsegmental basilar dependent airspace disease. CT scan abdomen and pelvis (03/30/17)---> the gastrojejunostomy tube remains in place, nonspecific nonobstructive bowel gas pattern which may represent a mild ileus or gastroenteritis, unremarkable gallbladder, the study is degraded by mild motion and streak artifact. No current bleeding. Blood cultures no growth one day. ID consulted. WBC 6.9. Afebrile. - Respiratory Failure, chronic. Trach. CXR shows no acute findings. - Persistent Vegetative State, Sz D/O, secondary to anoxic brain injury. - History of DVT. - Seizure disorder. PLAN: - Consult IR for G/J tube exchange - Okay to resume TF, Vital 1.5 with goal rate of 55cc/hr - Await pathology - Cont. PPI - Monitor HH - Transfuse as necessary - Notify GI of active bleeding - Supportive care - Okay to resume anticoagulation from GI standpoint - Further recommendations to follow based on results of above - Pt seen and examined by Dr. Ashraf and myself and this note is written on his behalf Vida KabaP Apr 01, 2017 09:52
[2017-04-01] MEDS: VANCOMYCIN INJ 1,250 MG in SODIUM CHLOR 0.9% 250 ML INJ 250 ML IV SCH ×2 (11:13→19:31)
[2017-04-01] MEDS: SODIUM CHLOR 0.9% 1000 ML INJ 1,000 ML IV SCH ×2 (17:20→17:42)
[2017-04-02] VITALS (13 sets, daily range): BP systolic 121–177; BP diastolic 56–84; PULSE 59–101; RESP 0–25; TEMP 97.2–99.3; O2SAT 97–100
[2017-04-02] MEDS: MORPHINE SULFATE 4 MG/ML INJ IV PUSH PRN (00:50)
[2017-04-02] MEDS: PROPRANOLOL HCL 20 MG TAB PEG SCH ×4 (00:55→16:51)
[2017-04-02] MEDS: HYOSCYAMINE 0.125 MG TAB PO SCH ×6 (00:55→20:00)
[2017-04-02] MEDS: SODIUM CHLOR 0.9% 1000 ML INJ 1,000 ML IV SCH ×2 (03:20→15:30)
[2017-04-02] MEDS: CHLORHEXIDINE GLUCONATE 2 % 1 PACK (2 CLOTHS) TOP SCH (04:00)
[2017-04-02] MEDS: CIPROFLOXACIN 0.3% OPTH SOLN 2.5 ML BTL EACH EYE SCH ×5 (04:00→21:58)
[2017-04-02] MEDS: RESP: ALBUTEROL 2.5 MG/IPRATROPIUM 0.5 MG NEB (SCH) INH ×5 (04:28→20:14)
[2017-04-02] MEDS: VANCOMYCIN INJ 1,250 MG in SODIUM CHLOR 0.9% 250 ML INJ 250 ML IV SCH ×2 (05:49→12:11)
[2017-04-02] MEDS: CEFEPIME INJ 1,000 MG in SODIUM CHLORIDE 0.9% INJ 100 ML IV SCH ×2 (05:50→16:51)
[2017-04-02] MEDS: hydrALAZINE HCL 50 MG TAB PO SCH ×3 (05:50→21:56)
[2017-04-02] MEDS: POTASSIUM CHLORIDE 25 MEQ EFFERVESCENT TAB PEG SCH ×2 (07:40→21:56)
[2017-04-02] MEDS: levETIRAcetam 500 MG TAB G-TUBE SCH ×2 (07:40→22:02)
[2017-04-02] MEDS: DOCUSATE SODIUM 50 MG/SENNA 8.6 MG TAB PO SCH ×2 (07:40→21:56)
[2017-04-02] MEDS: BACLOFEN 20 MG TAB G-TUBE SCH ×3 (07:41→15:31)
[2017-04-02] MEDS: SODIUM CHLORIDE 0.9% FLUSH 10 ML FLUSH IV FLUSH SCH ×2 (07:41→19:52)
[2017-04-02] MEDS: LORATADINE 10 MG TAB G-TUBE SCH (07:41)
[2017-04-02] MEDS: APIXABAN 5 MG TABLET G-TUBE SCH ×2 (07:42→21:56)
[2017-04-02] MEDS: RESP: TOBRAMYCIN SULFATE 80 MG/2 ML NEB NEB SCH ×2 (08:51→20:23)
--- NOTE | 2017-04-02 08:53 | HHI.PR ---
Subjective Remarks This is an unfortunate 31-year-old male with PMH of Traumatic Brain Injury and Persistent Vegetative State, s/p Trach/PEG, h/o DVT on Coumadin, Recurrent PNA/ Sepsis and Seizure Disorder who was brought to the ER secondary to fever and tachycardia. Multiple admissions for same, s/p treatment for Sepsis and returns within 24hrs for readmission due to recurrent symptoms. Most recent admit 03/21-03/29/17 for Sepsis/PNA, s/p eval by ID w/ completion of antibiotics. Shortly after arrival, developed fever/chills and tachycardia and sent back to ER. On arrival here, BP 142/88, HR 109, O2 sat 100% on trach, Temp 101.0 rectal. WBC 14.7, WBC 6.5 on 03/29/17. Chemistry unremarkable. Lactic Acid 2.4. CXR with no definite infiltrate. Abdominal X-ray with diffusely dilated loops of bowel. S/p Blood Cultures in ER. POSSIBLE ASPIRATION AT [facility] FEVERS NOTED POSSIBLE UPPER GI BLEED SYDNEE RN AND ID AM CHEST XRAY AM LABS 03-31 patient to have EGD later today Discussed with family at bedside Had gastro-occult positive gastroenterology was consult and will have an EGD today A.m. labs Continue current antibiotics per infectious disease 04-01 had EGD YESTERDAY WITH ESOPHAGITIS AND GASTRITIS--03/31/2017 patient has upper GI bleeding, nothing currently, upper endoscopy showed severe grade D esophagitis biopsy was done, mild gastritis biopsy was done, G J-tube is in place RESTART TUBE FEEDS REPLACE POTASSIUM SYDNEE MEDINA 04-02 TO HAVE PEG TUBE REPLACED TODAY NO FEVERS CURRENTLY Objective Vitals Vital Signs Date Time Temp Pulse Resp B/P (MAP) Pulse Ox O2 Delivery O2 Flow Rate FiO2 04/02/17 06:00 60 04/02/17 04:00 97.6 83 0 121/56 (77) 98 04/02/17 04:00 83 04/02/17 02:00 100 04/02/17 00:55 25 04/02/17 00:00 101 04/02/17 00:00 97.2 101 0 136/62 (86) 100 04/01/17 22:00 74 04/01/17 20:29 96 T-piece 6.00 28 04/01/17 20:00 99.0 66 17 148/72 (97) 99 04/01/17 20:00 66 04/01/17 18:00 69 04/01/17 17:00 80 04/01/17 16:00 98.9 72 9 131/60 (83) 95 04/01/17 16:00 72 04/01/17 15:00 81 04/01/17 14:00 94 04/01/17 13:00 74 04/01/17 12:00 69 04/01/17 12:00 99.0 69 9 126/56 (79) 100 04/01/17 11:00 68 04/01/17 10:00 71 04/01/17 09:00 65 I/O 04/01/17 04/01/17 04/01/17 04/02/17 04/02/17 04/02/17 07:00 15:00 23:00 07:00 15:00 23:00 Intake Total 220 ml 483 ml 486 ml Output Total 1000 ml 2400 ml 2200 ml Balance -780 ml -1917 ml -1714 ml Intake Oral 0 ml Tube Feeding 0 ml 243 ml 246 ml Other 220 ml 240 ml 240 ml Output Urine Total 1000 ml 2400 ml 2200 ml # Bowel Movements 0 0 Result Diagram: 04/01/17 0446 04/01/17 0446 Other Results Laboratory Tests Test 03/30/17 09:50 03/30/17 11:43 03/30/17 15:20 03/31/17 05:40 Nasal Screen MRSA (PCR) MRSA DETECTED Erythrocyte Sedimentation Rate 42 mm/hr C-Reactive Protein 1.18 MG/DL Procalcitonin 0.83 ng/mL Urine Color YELLOW Urine Turbidity CLEAR Urine pH 7.0 Urine Specific Rhodes 1.028 Urine Protein 30 mg/dL Urine Glucose (UA) NEG mg/dL Urine Ketones 10 mg/dL Urine Occult Blood SMALL Urine Nitrite NEG Urine Bilirubin NEG Urine Urobilinogen LESS THAN 2.0 MG/DL Urine Leukocyte Esterase NEG Urine RBC 1 /hpf Urine WBC 4 /hpf Urine Mucus FEW /lpf Microscopic Urinalysis Comment CATH-CULT NOT IND White Blood Count 9.6 TH/MM3 Red Blood Count 3.86 MIL/MM3 Hemoglobin 12.3 GM/DL Hematocrit 36.2 % Mean Corpuscular Volume 93.7 FL Mean Corpuscular Hemoglobin 32.0 PG Mean Corpuscular Hemoglobin Concent 34.1 % Red Cell Distribution Width 13.7 % Platelet Count 153 TH/MM3 Mean Platelet Volume 10.6 FL Neutrophils (%) (Auto) 65.1 % Lymphocytes (%) (Auto) 18.7 % Monocytes (%) (Auto) 13.7 % Eosinophils (%) (Auto) 1.9 % Basophils (%) (Auto) 0.6 % Neutrophils # (Auto) 6.3 TH/MM3 Lymphocytes # (Auto) 1.8 TH/MM3 Monocytes # (Auto) 1.3 TH/MM3 Eosinophils # (Auto) 0.2 TH/MM3 Basophils # (Auto) 0.1 TH/MM3 CBC Comment DIFF FINAL Differential Comment Hematology Comments Blood Urea Nitrogen 11 MG/DL Creatinine 0.67 MG/DL Random Glucose 69 MG/DL Total Protein 7.6 GM/DL Albumin 3.3 GM/DL Calcium Level 8.9 MG/DL Phosphorus Level 3.4 MG/DL Magnesium Level 2.1 MG/DL Alkaline Phosphatase 80 U/L Aspartate Amino Transf (AST/SGOT) 86 U/L Alanine Aminotransferase (ALT/SGPT) 69 U/L Total Bilirubin 0.5 MG/DL Sodium Level 139 MEQ/L Potassium Level 4.1 MEQ/L Chloride Level 107 MEQ/L Carbon Dioxide Level 21.6 MEQ/L Anion Gap 10 MEQ/L Estimat Glomerular Filtration Rate 169 ML/MIN Vancomycin Level Trough 18.7 MCG/ML Test 04/01/17 04:46 04/01/17 09:39 04/01/17 12:10 White Blood Count 6.9 TH/MM3 Red Blood Count 3.48 MIL/MM3 Hemoglobin 11.1 GM/DL Hematocrit 32.6 % Mean Corpuscular Volume 93.6 FL Mean Corpuscular Hemoglobin 31.9 PG Mean Corpuscular Hemoglobin Concent 34.1 % Red Cell Distribution Width 13.2 % Platelet Count 183 TH/MM3 Mean Platelet Volume 10.3 FL Neutrophils (%) (Auto) 73.3 % Lymphocytes (%) (Auto) 14.4 % Monocytes (%) (Auto) 9.9 % Eosinophils (%) (Auto) 2.1 % Basophils (%) (Auto) 0.3 % Neutrophils # (Auto) 5.1 TH/MM3 Lymphocytes # (Auto) 1.0 TH/MM3 Monocytes # (Auto) 0.7 TH/MM3 Eosinophils # (Auto) 0.1 TH/MM3 Basophils # (Auto) 0.0 TH/MM3 CBC Comment DIFF FINAL Differential Comment Blood Urea Nitrogen 5 MG/DL Creatinine 0.51 MG/DL Random Glucose 72 MG/DL Total Protein 6.7 GM/DL Albumin 2.8 GM/DL Calcium Level 8.4 MG/DL Phosphorus Level 3.1 MG/DL 3.3 MG/DL Magnesium Level 1.8 MG/DL Alkaline Phosphatase 76 U/L Aspartate Amino Transf (AST/SGOT) 55 U/L Alanine Aminotransferase (ALT/SGPT) 57 U/L Total Bilirubin 0.4 MG/DL Sodium Level 140 MEQ/L Potassium Level 3.4 MEQ/L Chloride Level 106 MEQ/L Carbon Dioxide Level 25.4 MEQ/L Anion Gap 9 MEQ/L Estimat Glomerular Filtration Rate 231 ML/MIN Vancomycin Level Trough 14.3 MCG/ML Imaging Last Impressions Chest X-Ray 03/31/17 0600 Signed Impressions: Service Date/Time: Friday, March 31, 2017 03:39 - CONCLUSION: 1. Tracheostomy in good position. Cardiomegaly with subsegmental basilar dependent airspace disease. Stephan Rich MD Abdomen/Pelvis CT 03/30/17 0000 Signed Impressions: Service Date/Time: Thursday, March 30, 2017 15:46 - CONCLUSION: 1. The gastrojejunostomy tube remains in place. 2. Nonspecific nonobstructive bowel gas pattern which may represent a mild ileus or gastroenteritis. 3. Unremarkable gallbladder. 4. The study is degraded by mild motion and streak artifact. Clayton Mccray MD Abdomen X-Ray 03/30/17 0000 Signed Impressions: Service Date/Time: Thursday, March 30, 2017 04:37 - CONCLUSION: Diffusely dilated loops of bowel. Zachariah Jiménez MD Objective Remarks GENERAL: COMPLETELY NONVERBAL SKIN: Warm and dry. HEAD: Atraumatic. Normocephalic. EYES: Pupils equal and round. No scleral icterus. No injection or drainage. ENT: No nasal bleeding or discharge. Mucous membranes pink and moist. NECK: Trachea midline. No JVD. TRACHEOSTOMY IN PLACE ON T-TUBE CARDIOVASCULAR: Regular rate and rhythm. S1,S2 NO S3 OR S4 RESPIRATORY: No accessory muscle use. COARSE BREATH SOUNDS BL, RHONCHI. Breath sounds equal bilaterally. GASTROINTESTINAL: Abdomen soft, non-tender, nondistended. Hepatic and splenic margins not palpable. PEG--CONDOM CATHETER MUSCULOSKELETAL: Extremities without clubbing, cyanosis, or edema. No obvious deformities. NEUROLOGICAL: NOT Awake and alert. obvious cranial nerve deficits. NOT ABLE TO ASSESS MOTOR OR SENSORY. PSYCHIATRIC: INAppropriate mood and affect; insight and judgment ABnormal. NONVERBAL UNABLE TO ASSESS Procedures 03/31/2017 patient has upper GI bleeding, nothing currently, upper endoscopy showed severe grade D esophagitis biopsy was done, mild gastritis biopsy was done, G J-tube is in place EGD 03-31 Medications and IVs Current Medications Sodium Chloride 1,000 ml @ 2,000 mls/hr Q30M ONCE IV Last administered on 03/30 04:00; Start 03/30/17 at 04:00; Stop 03/30/17 at 04:29; Status DC Ondansetron HCl (Zofran Inj) 4 mg ONCE ONCE IV PUSH Last administered on 05:25; Start 03/30/17 at 04:00; Stop 03/30/17 at 04:01; Status DC Sodium Chloride 1,000 ml @ 2,000 mls/hr Q30M ONCE IV Last administered on 03/30 04:15; Start 03/30/17 at 04:15; Stop 03/30/17 at 04:44; Status DC Lorazepam (Ativan Inj) 1 mg ONCE ONCE IV PUSH Last administered on 03/30/17 05:24; Start 03/30/17 at 04:30; Stop 03/30/17 at 04:31; Status DC Amlodipine Besylate (Norvasc) 10 mg DAILY PEG Last administered on 04/02/17 07 :40; Start 03/30/17 at 09:00 Apixaban (Eliquis) 5 mg BID G-TUBE Last administered on 04/01/17 20:08; Start 03/30/17 at 09:00 Atropine Sulfate (Atropine 1% Opth Soln) 1 drop Q12HR PRN SL For mild/moderate secretions; Start 03/30/17 at 05:30 Baclofen (Lioresal) 20 mg TID G-TUBE Last administered on 04/02/17 07:41; Start 03/30/17 at 09:00 Bisacodyl (Dulcolax Ec) 5 mg DAILY PRN PO CONSTIPATION; Start 03/30/17 at 05:30 ; Status Cancel Ciprofloxacin HCl (Ciloxan 0.3% Opth Soln) 1 drop Q4HR EACH EYE Last administered on 04/02/17 04:00; Start 03/30/17 at 08:00 Famotidine (Pepcid) 40 mg DAILY G-TUBE Last administered on 03/31/17 08:14; Start 03/30/17 at 09:00; Stop 03/31/17 at 13:48; Status DC Guaifenesin (Robitussin Liq) 100 mg Q4H PRN PO COUGH; Start 03/30/17 at 05:30 Hydralazine HCl (Apresoline) 50 mg Q8HR PO Last administered on 04/02/17 05:50 ; Start 03/30/17 at 06:00 Hyoscyamine Sulfate (Levsin) 0.125 mg Q4HR PO Last administered on 04/02/17 05 :50; Start 03/30/17 at 08:00 Albuterol/ Ipratropium (Duoneb Neb) 1 ampule Q4HR NEB INH Last administered on 04/02/17 04:28; Start 03/30/17 at 08:00 Levetriacetam (Keppra) 1,000 mg BID G-TUBE Last administered on 04/02/17 07:40 ; Start 03/30/17 at 09:00 Lorazepam (Ativan) 1 mg Q4H PRN G-TUBE for severe anxiety or dyspnea; Start at 05:30 Propranolol HCl (Inderal) 20 mg Q6HR PEG Last administered on 04/02/17 05:49; Start 03/30/17 at 06:00 Senna/Docusate Sodium (Sanam-Colace) 2 tab BID PEG ; Start 03/30/17 at 09:00; Status Cancel Tobramycin Sulfate (Tobramycin Neb) 80 mg Q12HR NEB NEB Last administered on 20:50; Start 03/30/17 at 08:00 Loratadine (Claritin) 5 mg DAILY G-TUBE Last administered on 04/02/17 07:41; Start 03/30/17 at 09:00 Sodium Chloride 1,000 ml @ 100 mls/hr Q10H IV Last administered on 04/02/17 03:20; Start 03/30/17 at 05:20 Sodium Chloride (NS Flush) 2 ml UNSCH PRN IV FLUSH FLUSH AFTER USING IV ACCESS ; Start 03/30/17 at 05:30 Sodium Chloride (NS Flush) 2 ml BID IV FLUSH Last administered on 04/02/17 07: 41; Start 03/30/17 at 09:00 Ondansetron HCl (Zofran Inj) 4 mg Q6H PRN IVP NAUSEA OR VOMITING Last administered on 03/30/17 09:10; Start 03/30/17 at 05:30 Morphine Sulfate (Morphine Inj) 1 mg Q3H PRN IV PUSH Pain 3-5 Last administered on 04/02/17 00:50; Start 03/30/17 at 05:30 Morphine Sulfate (Morphine Inj) 2 mg Q3H PRN IV PUSH Pain 6-10 Last administered on 03/30/17 23:19; Start 03/30/17 at 05:30 Acetaminophen (Ofirmev 1000 Mg/ 100 ml Inj) 1,000 mg Q6H PRN IV FEVER; Start at 05:30; Stop 03/30/17 at 10:09; Status DC Senna/Docusate Sodium (Sanam-Colace) 1 tab BID PO Last administered on 07:40; Start 03/30/17 at 09:00 Magnesium Hydroxide (Milk Of Magnesia Liq) 30 ml Q12H PRN PO MILD - MODERATE CONSTIPATION; Start 03/30/17 at 05:30 Sennosides (Senokot) 17.2 mg Q12H PRN PO MODERATE - SEVERE CONSTIPATION; Start 03/30/17 at 05:30 Bisacodyl (Dulcolax Supp) 10 mg DAILY PRN RECTAL SEVERE CONSITIPATION; Start at 05:30 Lactulose (Lactulose Liq) 30 ml DAILY PRN PO SEVERE CONSITIPATION; Start at 05:30 Pharmacy Profile Note 0 ml @ 0 mls/hr UNSCH OTHER ; Start 03/30/17 at 05:45 Cefepime HCl 1000 mg/Sodium Chloride 100 ml @ 200 mls/hr Q12H IV Last administered on 04/02/17 05:50; Start 03/30/17 at 06:00 Vancomycin HCl 1000 mg/Sodium Chloride 250 ml @ 250 mls/hr ONCE ONCE IV Last administered on 03/30/17 07:18; Start 03/30/17 at 06:00; Stop 03/30/17 at 06:59 ; Status DC Lorazepam (Ativan Inj) 1 mg Q2H PRN IV PUSH AGITATION Last administered on 03/30 09:10; Start 03/30/17 at 06:30 Miscellaneous Information 1 Q361D XX ; Start 03/30/17 at 06:30 Chlorhexidine Gluconate (Chlorhexidine 2% Cloth) 3 pack Taper DAILY@04 TOP Last administered on 04/02/17 04:00; Start 03/31/17 at 04:00; Stop 03/27/18 at 03:59 Chlorhexidine Gluconate (Chlorhexidine 2% Cloth) 3 pack UNSCH PRN TOP HYGIENIC CARE; Start 03/30/17 at 06:30 Acetaminophen (Tylenol) 650 mg Q6H PRN PO INCREASED TEMPERATURE; Start at 10:00; Status Cancel Clonidine (Catapres) 0.1 mg Q6H PRN PO SBP>160, DBP>90 Last administered on 23:03; Start 03/30/17 at 10:00 Metoprolol Tartrate (Lopressor) 25 mg BID PRN PO HR>110; Start 03/30/17 at 10: 00 Oxycodone/ Acetaminophen (Percocet 5-325 Mg) 1 tab Q6H PRN PO PAIN; Start at 10:00; Status UNV Potassium Bicarb/ Potassium Chloride (K-Lyte Cl Eff) 25 meq Q12HR PEG Last administered on 04/02/17 07:40; Start 03/30/17 at 21:00 Acetaminophen (Tylenol 650 Mg/ 20 ml Liq) 650 mg Q6H PRN PO FEVER Last administered on 03/30/17 11:26; Start 03/30/17 at 10:15 Acetaminophen (Tylenol Supp) 650 mg Q6H PRN RECTAL FEVER; Start 03/30/17 at 10: 15 Vancomycin HCl 1250 mg/Sodium Chloride 262.5 ml @ 250 mls/hr Q8H IV Last administered on 04/01/17 11:13; Start 03/30/17 at 15:00; Stop 04/01/17 at 12:17 ; Status DC Miscellaneous Information SPECIFIC LAB TO BE JEWEL... ONCE ONCE .XX Last administered on 03/31/17 04:46; Start 03/31/17 at 06:45; Stop 03/31/17 at 06:46 ; Status DC Iohexol (Omnipaque 350 Inj) 100 ml STK-MED ONCE IVCONTRAST Last administered on 03/30/17 16:09; Start 03/30/17 at 16:09; Stop 03/30/17 at 16:10; Status DC Miscellaneous Information SPECIFIC LAB TO BE JEWEL... ONCE ONCE .XX ; Start 04/01 at 06:45; Stop 04/01/17 at 06:46; Status DC Pantoprazole Sodium (Protonix) 20 mg ONCE ONCE PO Last administered on 15:28; Start 03/31/17 at 14:00; Stop 03/31/17 at 14:01; Status DC Potassium Chloride 100 ml @ 50 mls/hr Q2H PRN IV For Potassium 2.8 - 3.2 mEq/L ; Start 04/01/17 at 08:00 Potassium Chloride 100 ml @ 50 mls/hr Q2H PRN IV For Potassium 2.8 - 3.2 mEq/L ; Start 04/01/17 at 08:00 Potassium Bicarb/ Potassium Chloride (K-Lyte Cl Eff) 50 meq UNSCH PRN PO For Potassium 3.3 - 3.5 mEq/L Last administered on 04/01/17 13:58; Start 04/01/17 at 08:00 Potassium Chloride 100 ml @ 25 mls/hr UNSCH PRN IV For Potassium 3.3 - 3.5 mEq /L; Start 04/01/17 at 08:00 Potassium Chloride 100 ml @ 50 mls/hr Q2H PRN IV For Potassium 3.3 - 3.5 mEq/L ; Start 04/01/17 at 08:00 Magnesium Sulfate 4 gm/Sodium Chloride 100 ml @ 50 mls/hr UNSCH PRN IV For Magnesium 0.9 - 1.1 mg/dL; Start 04/01/17 at 08:00 Magnesium Oxide (Mag-Ox) 800 mg UNSCH PRN PO For Magnesium 1.2 - 1.6 mg/dL; Start 04/01/17 at 08:00 Magnesium Sulfate 2 gm/Sodium Chloride 100 ml @ 50 mls/hr UNSCH PRN IV For Magnesium 1.2 - 1.6 mg/dL; Start 04/01/17 at 08:00 Potassium Phosphate (K-Phos) 2,000 mg Q4H PRN PO For Phosphorus < 2.5 mg/dL; Start 04/01/17 at 08:00 Sodium Phosphate 30 mmol/Sodium Chloride 250 ml @ 42 mls/hr UNSCH PRN IV For Phosphorus < 2.5 mg/dL; Start 04/01/17 at 08:00 Potassium Phosphate (K-Phos) 2,000 mg UNSCH PRN PO/TUBE SEE LABEL COMMENTS; Start 04/01/17 at 08:00 Potassium Phosphate 30 mmol/ Sodium Chloride 260 ml @ 42 mls/hr UNSCH PRN IV SEE LABEL COMMENTS; Start 04/01/17 at 08:00 Vancomycin HCl 1250 mg/Sodium Chloride 262.5 ml @ 250 mls/hr Q8H IV Last administered on 04/02/17t 05:49; Start 04/01/17 at 20:00 Miscellaneous Information SPECIFIC LAB TO BE DRAWN:VANCOMYCIN TROUGH DATE TO... ONCE ONCE .XX ; Start 04/03/17 at 03:45; Stop 04/03/17 at 03:46 Propofol (Diprivan 200 Mg/20 ml Inj) 200 mg STK-MED ONCE IV ; Start 03/31/17 at 07:56; Stop 04/02/17 at 07:56; Status DC Urinary Catheter: No Vascular Central Line Catheter: No A/P Problem List: (1) Sepsis ICD Code: A41.9 - Sepsis, unspecified organism Status: Resolved (2) Chronic respiratory failure ICD Code: J96.10 - Chronic respiratory failure, unspecified whether with hypoxia or hypercapnia (3) History of DVT (deep vein thrombosis) ICD Code: Z86.718 - Personal history of other venous thrombosis and embolism Status: Acute (4) Permanent vegetative state ICD Code: R40.3 - Persistent vegetative state Status: Acute (5) Seizure disorder ICD Code: G40.909 - Epilepsy, unspecified, not intractable, without status epilepticus Assessment and Plan 1. Sepsis: Recurrent, multiple admissions for same. Unclear source. Recent admit 03/21-03/29/17 for same, s/p completion of IV Abx and eval by ID. Temp 102.2 rectal, WBC 14.7, previously 6.5 on 03/29/17. CXR w/ no acute findings, images reviewed by me. U/a pending. S/p Blood Cultures in ER. Re-consult ID for further recommendations as unclear if infectious etiology. H/o Pseudomonas PNA on 03/23/17, cultures otherwise negative. 2. Chronic Respiratory Failure: S/p Trach, O2 sat stable at 100% on T-piece. CXR w/ no acute findings, images reviewed by me. Resume home DuoNeb, Tobra Neb 3. H/o DVT: on Eliquis, will continue. 4. 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 Chronic. At baseline. 5. Seizure Disorder: No seizure activity noted. Resume home medications. 6. DVT Prophylaxis: Continue home Eliquis POSSIBLE ASPIRATION AT NURSING FACILITY- NO FEVERS HERE- RESTART TUBE FEEDS FEVERS HX PSEUDOMONAS PNA CHECK GASTROCCULT-was positive to undergo EGD today March 31 RESTART TUBE FEEDS DW RN AND ID EGD ON 03-31 SHOWED 03/31/2017 patient has upper GI bleeding, nothing currently, upper endoscopy showed severe grade D esophagitis biopsy was done, mild gastritis biopsy was done, G J-tube is in place Has remained afebrile since coming to the ICU 04-02 TO HAVE PEG TUBE CHANGED OUT TODAY Hudson Luz DO Apr 02, 2017 08:52
[2017-04-02] MEDS ORDERED: IOHEXOL 350 MG/ML 50 ML BTL (for RAD DIAG) J-TUBE ONE (10:57)
--- NOTE | 2017-04-02 11:51 | RADRPT ---
EXAM DATE/TIME: 04/02/2017 10:19 [facility] COMPARISON: CHANGE OF GJ-TUBE CATHETER, February 25, 2017, 10:57. INDICATIONS : Patient with history of an anoxic brain injury in need of gastrojejunostomy tube exchange. MEDICAL HISTORY : Chronic tracheostomy Chronic NOAC use History of left upper extremity DVT Recurrent aspiration pneumonia Hypertension Dyslipidemia History of pancreatitis/pseudocyst Diabetes mellitus Chronic narcotic use Chronic muscle relaxant use SURGICAL HISTORY : Tracheostomy GJ tube ENCOUNTER: Subsequent ACUITY: >1 year PAIN SCORE: 0/10 FLUORO TIME: 0.8 minutes IMAGE SERIES: 1 CONTRAST: 20 cc Omnipaque (iohexol) 350 DEVICE(S): 1.) 22 [place] Transgastric tube PROCEDURE : 1. Fluoroscopically guided gastrojejunostomy tube exchange. 2. Conscious sedation with continuous EKG and oximetry monitoring. The risks, benefits and alternatives to the procedure were explained and verbal and written consent w as obtained. The site was prepped in sterile fashion. Full sterile technique was used, including ca p, mask, sterile gloves and gown and a large sterile sheet. Hand hygiene and 2% chlorhexidine and/or betadine/alcohol prep was utilized per protocol for cutaneous antisepsis. The skin and subcutaneous tissues were infiltrated with local anesthetic solution. With fluoroscopic guidance a guidewire was passed through the previous gastrojejunostomy tube and a f resh tube was placed over the guidewire. The balloon was inflated with appropriate volume of saline. Injection of positive contrast demonstrates good position of the gastric and jejunal lumens of the tube. Conscious sedation was performed with the prescribed dosages and duration as above in the presence of an independent trained radiology nurse to assist in the monitoring of the patient. EKG and oximetry remained stable throughout the procedure. The patient tolerated the procedure well and there were n o complications. The patient was sent to post anesthesia recovery in stable condition. CONCLUSION: Uncomplicated gastrojejunostomy tube exchange as above. Jm Garnica MD on April 02, 2017 at 11:42 Board Certified Radiologist. This report was verified electronically.
[2017-04-02 12:05] LABS: AUTOMATED NEUTROPHIL # 3.1 TH/MM3 (1.8-7.7); BASOPHIL % 0.8 % (0.0-2.0); EOSINOPHIL # 0.1 TH/MM3 (0-0.4); EOSINOPHIL % 1.6 % (0.0-4.0); HEMATOCRIT 37.5 % (39.0-51.0); HEMO FLAGS DIFF FINAL; LYMPH % 24.1 % (9.0-44.0); LYMPHOCYTE # 1.2 TH/MM3 (1.0-4.8); MEAN CELL VOLUME 94.4 FL (80.0-100.0); MEAN CORPUSCULAR HGB CONC 32.8 % (32.0-36.0); MONO % 12.3 % (0.0-8.0); NEUT % 61.2 % (16.0-70.0); PLATELET COUNT 186 TH/MM3 (150-450); RED BLOOD COUNT 3.97 MIL/MM3 (4.50-5.90); RED CELL DISTRIBUTION WIDTH 13.6 % (11.6-17.2)
[2017-04-02 12:28] LABS: ALKALINE PHOSPHATASE 85 U/L (45-117); ALT (GPT) 58 U/L (12-78); ANION GAP 7 MEQ/L (5-15); AST (GOT) 37 U/L (15-37); BLOOD UREA NITROGEN 6 MG/DL (7-18); CHLORIDE 107 MEQ/L (98-107); GLOMERULAR FILTRATION RATE 175 ML/MIN (>89); POTASSIUM 3.9 MEQ/L (3.5-5.1); SODIUM (NA) 138 MEQ/L (136-145); TOTAL BILIRUBIN ADULT 0.3 MG/DL (0.2-1.0)
--- NOTE | 2017-04-02 14:26 | HHI.IDPN ---
Subjective Subjective Remarks Patient is a 31-year-old male, well-known to me, recently discharged from the hospital March 29, readmitted for recurrent fevers. This is his third admission since February. He was admitted February 21 and at that time he was found to have viridans strep sepsis, as well as Pseudomonas pneumonia. Required ventilatory support at that time, and he improved. He has a chronic trach. At one time he required bronchoscopy during that hospitalization for hemoptysis, and that resolved, and no active bleeding was seen during bronchoscopy. He completed treatment for his bacteremia and pneumonia, and he was discharged back to the [place] on March 20. He was readmitted for fevers, and again received treatment for Pseudomonas pneumonia. He was stable, and went back to the [place] [facility] on March 29, and came back because of fevers. His temperature was up to 102+, he is tachycardic between 140-150. He had a chest x-ray which was limited but there was no obvious infiltrates. He did not have any central line. He has a condom catheter in place. There is been no real change with his neurological status. There is also been no mention of any diarrhea. His WBC was up to 14. He is not on pressors. He is on T piece with good sats. He has a lot of drooling from his mouth. His neurological status remains the same, and that he is unresponsive, keeps his eyes closed, and very spastic and rigid in his extremities. Infectious disease consultation has been requested to evaluate the patient with recurrent fevers. Notes reviewed Temps ok WBC normal Had replacement of PEG today D/W RN Sputum C/S with MRSA Last CXR with basilar infiltrates Antibiotics Cefepime Vancomycin Lines PIV Past Medical History Chronic tracheostomy Recurrent aspiration pneumonia History of upper extremity DVT [place] hypertension Hyperlipidemia Diabetes History of pancreatitis and pseudocyst History of multidrug resistant infections including MRSA, and ESBL positive organism Recent treatment for viridans strep bacteremia related to a midline Past Surgical History Status post trach and revision Status post G-tube placement and revision Previous bronchoscopy Allergies: Coded Allergies: haloperidol (Unverified Adverse Reaction, Severe, Seizures, 03/30/17) Objective . Vital Signs Date Time Temp Pulse Resp B/P (MAP) Pulse Ox O2 Delivery O2 Flow Rate FiO2 04/02/17 14:00 93 04/02/17 12:00 98.0 98 25 177/84 (115) 100 04/02/17 12:00 98 04/02/17 08:45 98 T-piece 5.00 28 04/02/17 08:00 69 04/02/17 08:00 99.3 69 12 137/63 (87) 100 04/02/17 06:00 60 04/02/17 04:00 97.6 83 0 121/56 (77) 98 04/02/17 04:00 83 04/02/17 02:00 100 04/02/17 00:55 25 04/02/17 00:00 101 04/02/17 00:00 97.2 101 0 136/62 (86) 100 04/01/17 22:00 74 04/01/17 20:29 96 T-piece 6.00 28 04/01/17 20:00 99.0 66 17 148/72 (97) 99 04/01/17 20:00 66 04/01/17 18:00 69 04/01/17 17:00 80 04/01/17 16:00 98.9 72 9 131/60 (83) 95 04/01/17 16:00 72 04/01/17 15:00 81 . Laboratory Tests Test 04/01/17 04:46 04/02/17 11:45 White Blood Count 6.9 TH/MM3 5.0 TH/MM3 Red Blood Count 3.48 MIL/MM3 3.97 MIL/MM3 Hemoglobin 11.1 GM/DL 12.3 GM/DL Hematocrit 32.6 % 37.5 % Mean Corpuscular Volume 93.6 FL 94.4 FL Mean Corpuscular Hemoglobin 31.9 PG 31.0 PG Mean Corpuscular Hemoglobin Concent 34.1 % 32.8 % Red Cell Distribution Width 13.2 % 13.6 % Platelet Count 183 TH/MM3 186 TH/MM3 Mean Platelet Volume 10.3 FL 9.7 FL Neutrophils (%) (Auto) 73.3 % 61.2 % Lymphocytes (%) (Auto) 14.4 % 24.1 % Monocytes (%) (Auto) 9.9 % 12.3 % Eosinophils (%) (Auto) 2.1 % 1.6 % Basophils (%) (Auto) 0.3 % 0.8 % Neutrophils # (Auto) 5.1 TH/MM3 3.1 TH/MM3 Lymphocytes # (Auto) 1.0 TH/MM3 1.2 TH/MM3 Monocytes # (Auto) 0.7 TH/MM3 0.6 TH/MM3 Eosinophils # (Auto) 0.1 TH/MM3 0.1 TH/MM3 Basophils # (Auto) 0.0 TH/MM3 0.0 TH/MM3 CBC Comment DIFF FINAL DIFF FINAL Differential Comment Laboratory Tests Test 04/01/17 04:46 04/01/17 12:10 04/02/17 11:19 Blood Urea Nitrogen 5 MG/DL 6 MG/DL Creatinine 0.51 MG/DL 0.65 MG/DL Random Glucose 72 MG/DL 88 MG/DL Total Protein 6.7 GM/DL 7.8 GM/DL Albumin 2.8 GM/DL 3.5 GM/DL Calcium Level 8.4 MG/DL 9.2 MG/DL Phosphorus Level 3.1 MG/DL 3.3 MG/DL 2.9 MG/DL Magnesium Level 1.8 MG/DL 2.0 MG/DL Alkaline Phosphatase 76 U/L 85 U/L Aspartate Amino Transf (AST/SGOT) 55 U/L 37 U/L Alanine Aminotransferase (ALT/SGPT) 57 U/L 58 U/L Total Bilirubin 0.4 MG/DL 0.3 MG/DL Sodium Level 140 MEQ/L 138 MEQ/L Potassium Level 3.4 MEQ/L 3.9 MEQ/L Chloride Level 106 MEQ/L 107 MEQ/L Carbon Dioxide Level 25.4 MEQ/L 24.0 MEQ/L Anion Gap 9 MEQ/L 7 MEQ/L Estimat Glomerular Filtration Rate 231 ML/MIN 175 ML/MIN Microbiology Date/Time Source Procedure Growth Status 04/01/17 01:30 Sputum Endotracheal Gram Stain - Final Resulted 04/01/17 01:30 Sputum Culture - Preliminary S. Aureus Mrsa Resulted Imaging Chest X-Ray 03/31/17 0600 Signed Impressions: Service Date/Time: Friday, March 31, 2017 03:39 - CONCLUSION: 1. Tracheostomy in good position. Cardiomegaly with subsegmental basilar dependent airspace disease. Stephan Rich MD Abdomen/Pelvis CT 03/30/17 0000 Signed Impressions: Service Date/Time: Thursday, March 30, 2017 15:46 - CONCLUSION: 1. The gastrojejunostomy tube remains in place. 2. Nonspecific nonobstructive bowel gas pattern which may represent a mild ileus or gastroenteritis. 3. Unremarkable gallbladder. 4. The study is degraded by mild motion and streak artifact. Clayton Mccray MD Abdomen X-Ray 03/30/17 0000 Signed Impressions: Service Date/Time: Thursday, March 30, 2017 04:37 - CONCLUSION: Diffusely dilated loops of bowel. Zachariah Jiménez MD Physical Exam GENERAL: Opens eyes when stimulated, no interaction, not in respiratory distress, has chronic trach, drooling SKIN: Warm and dry. No generalized rash, no ecchymoses and no evidence of embolic lesions. HEAD: Atraumatic. Normocephalic. No temporal wasting, or tenderness. EYES: [place] conjunctiva. No petechia or hemorrhage. Pupils equal, round and reactive to light. No scleral icterus. No injection or drainage. EARS, NOSE AND THROAT: Nose without bleeding or purulent nasal discharge. Moist oral mucosa, has a lot of oral secretions coming out of his mouth. NECK: Trachea midline. Supple and no meningeal signs CARDIOVASCULAR: Tachycardic, regular rate and rhythm. No murmurs, rubs or gallops heard RESPIRATORY: Clear to auscultation. Breath sounds equal bilaterally. No rales , wheezing or rhonchi. Decreased at the bases. ABDOMEN: Soft, nondistended, bowel sounds present and normoactive. No reaction to palpation, no guarding. No organomegaly. PEG site ok EXTREMITIES: No clubbing, cyanosis, or edema. No joint effusion. Well perfused and warm. NEUROLOGICAL: No interaction. Very spastic UE and LE. Both feet plantar flexed. 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
[2017-04-02] MEDS: LINEZOLID 600 MG TAB PO SCH ×2 (15:30→21:56)
[2017-04-03] VITALS (8 sets, daily range): BP systolic 123–142; BP diastolic 60–70; PULSE 52–104; RESP 19–23; TEMP 98.5–98.7; O2SAT 90–100
[2017-04-03] MEDS: HYOSCYAMINE 0.125 MG TAB PO SCH ×7 (00:03→23:57)
[2017-04-03] MEDS: PROPRANOLOL HCL 20 MG TAB PEG SCH ×4 (00:03→23:59)
[2017-04-03] MEDS: CIPROFLOXACIN 0.3% OPTH SOLN 2.5 ML BTL EACH EYE SCH ×7 (00:03→23:59)
[2017-04-03] MEDS: SODIUM CHLOR 0.9% 1000 ML INJ 1,000 ML IV SCH ×3 (00:03→17:33)
[2017-04-03] MEDS: CHLORHEXIDINE GLUCONATE 2 % 1 PACK (2 CLOTHS) TOP SCH (03:35)
[2017-04-03] MEDS: RESP: ALBUTEROL 2.5 MG/IPRATROPIUM 0.5 MG NEB (SCH) INH ×3 (03:39→07:34)
[2017-04-03] MEDS ORDERED: PHARMACY ORDERED LAB ONE (03:45)
[2017-04-03 05:43] LABS: AUTOMATED NEUTROPHIL # 2.5 TH/MM3 (1.8-7.7); BASOPHIL % 0.6 % (0.0-2.0); EOSINOPHIL # 0.2 TH/MM3 (0-0.4); EOSINOPHIL % 3.7 % (0.0-4.0); HEMATOCRIT 36.9 % (39.0-51.0); HEMO FLAGS DIFF FINAL; LYMPH % 30.2 % (9.0-44.0); LYMPHOCYTE # 1.5 TH/MM3 (1.0-4.8); MEAN CELL VOLUME 93.8 FL (80.0-100.0); MEAN CORPUSCULAR HEMOGLOBIN 31.4 PG (27.0-34.0); MEAN CORPUSCULAR HGB CONC 33.4 % (32.0-36.0); MONO % 14.8 % (0.0-8.0); NEUT % 50.7 % (16.0-70.0); PLATELET COUNT 242 TH/MM3 (150-450); RED BLOOD COUNT 3.94 MIL/MM3 (4.50-5.90); RED CELL DISTRIBUTION WIDTH 13.5 % (11.6-17.2); WHITE BLOOD COUNT 4.8 TH/MM3 (4.0-11.0)
[2017-04-03] MEDS: hydrALAZINE HCL 50 MG TAB PO SCH ×2 (06:04→21:39)
[2017-04-03] MEDS: CEFEPIME INJ 1,000 MG in SODIUM CHLORIDE 0.9% INJ 100 ML IV SCH (06:05)
[2017-04-03 06:14] LABS: ANION GAP 7 MEQ/L (5-15); AST (GOT) 26 U/L (15-37); BICARBONATE 26.1 MEQ/L (21.0-32.0); BLOOD UREA NITROGEN 4 MG/DL (7-18); CHLORIDE 105 MEQ/L (98-107); GLOMERULAR FILTRATION RATE 166 ML/MIN (>89); MAGNESIUM 1.9 MG/DL (1.5-2.5); POTASSIUM 3.7 MEQ/L (3.5-5.1); SODIUM (NA) 138 MEQ/L (136-145)
[2017-04-03 06:15] LABS: ALT (GPT) 55 U/L (12-78)
[2017-04-03 06:17] LABS: ALKALINE PHOSPHATASE 85 U/L (45-117); TOTAL BILIRUBIN ADULT 0.3 MG/DL (0.2-1.0)
[2017-04-03] MEDS: RESP: TOBRAMYCIN SULFATE 80 MG/2 ML NEB NEB SCH ×2 (07:34→20:12)
--- NOTE | 2017-04-03 09:07 | HHI.PR ---
Subjective Remarks This is an unfortunate 31-year-old male with PMH of Traumatic Brain Injury and Persistent Vegetative State, s/p Trach/PEG, h/o DVT on Coumadin, Recurrent PNA/ Sepsis and Seizure Disorder who was brought to the ER secondary to fever and tachycardia. Multiple admissions for same, s/p treatment for Sepsis and returns within 24hrs for readmission due to recurrent symptoms. Most recent admit 03/21-03/29/17 for Sepsis/PNA, s/p eval by ID w/ completion of antibiotics. Shortly after arrival, developed fever/chills and tachycardia and sent back to ER. On arrival here, BP 142/88, HR 109, O2 sat 100% on trach, Temp 101.0 rectal. WBC 14.7, WBC 6.5 on 03/29/17. Chemistry unremarkable. Lactic Acid 2.4. CXR with no definite infiltrate. Abdominal X-ray with diffusely dilated loops of bowel. S/p Blood Cultures in ER. POSSIBLE ASPIRATION AT [facility] FEVERS NOTED POSSIBLE UPPER GI BLEED SYDNEE RN AND ID AM CHEST XRAY AM LABS 03-31 patient to have EGD later today Discussed with family at bedside Had gastro-occult positive gastroenterology was consult and will have an EGD today A.m. labs Continue current antibiotics per infectious disease 04-01 had EGD YESTERDAY WITH ESOPHAGITIS AND GASTRITIS--03/31/2017 patient has upper GI bleeding, nothing currently, upper endoscopy showed severe grade D esophagitis biopsy was done, mild gastritis biopsy was done, G J-tube is in place RESTART TUBE FEEDS REPLACE POTASSIUM SYDNEE MEDINA 04-02 TO HAVE PEG TUBE REPLACED TODAY NO FEVERS CURRENTLY 04-03 had PEG EXCHANGE YESTERDAY MEDS ADJUSTED BY ID Objective Vitals Vital Signs Date Time Temp Pulse Resp B/P (MAP) Pulse Ox O2 Delivery O2 Flow Rate FiO2 04/03/17 07:30 100 T-piece 28 04/03/17 06:00 90 04/03/17 04:00 98.5 67 22 135/70 (91) 100 04/03/17 04:00 67 04/03/17 02:00 74 04/03/17 00:00 104 04/03/17 00:00 98.5 104 23 142/68 (92) 100 04/02/17 22:00 89 04/02/17 20:14 100 T-piece 6.00 28 04/02/17 20:00 68 04/02/17 20:00 97.9 68 24 134/62 (86) 97 04/02/17 18:00 59 04/02/17 16:00 72 04/02/17 16:00 97.9 72 13 121/57 (78) 100 04/02/17 14:00 93 04/02/17 12:00 98.0 98 25 177/84 (115) 100 04/02/17 12:00 98 I/O 04/02/17 04/02/17 04/02/17 04/03/17 04/03/17 04/03/17 06:59 14:59 22:59 06:59 14:59 22:59 Intake Total 486 ml 942.5 ml 2002 ml Output Total 2200 ml 1450 ml 950 ml Balance -1714 ml -507.5 ml 1052 ml Intake Oral 0 ml IV Total 495.5 ml 1479 ml Tube Feeding 246 ml 447 ml 523 ml Other 240 ml Output Urine Total 2200 ml 1450 ml 950 ml # Bowel Movements 0 0 0 Result Diagram: 04/03/17 0433 04/03/17432 Other Results Laboratory Tests Test 04/01/17 04:46 04/01/17 09:39 04/01/17 12:10 04/02/17 11:19 White Blood Count 6.9 TH/MM3 Red Blood Count 3.48 MIL/MM3 Hemoglobin 11.1 GM/DL Hematocrit 32.6 % Mean Corpuscular Volume 93.6 FL Mean Corpuscular Hemoglobin 31.9 PG Mean Corpuscular Hemoglobin Concent 34.1 % Red Cell Distribution Width 13.2 % Platelet Count 183 TH/MM3 Mean Platelet Volume 10.3 FL Neutrophils (%) (Auto) 73.3 % Lymphocytes (%) (Auto) 14.4 % Monocytes (%) (Auto) 9.9 % Eosinophils (%) (Auto) 2.1 % Basophils (%) (Auto) 0.3 % Neutrophils # (Auto) 5.1 TH/MM3 Lymphocytes # (Auto) 1.0 TH/MM3 Monocytes # (Auto) 0.7 TH/MM3 Eosinophils # (Auto) 0.1 TH/MM3 Basophils # (Auto) 0.0 TH/MM3 CBC Comment DIFF FINAL Differential Comment Blood Urea Nitrogen 5 MG/DL 6 MG/DL Creatinine 0.51 MG/DL 0.65 MG/DL Random Glucose 72 MG/DL 88 MG/DL Total Protein 6.7 GM/DL 7.8 GM/DL Albumin 2.8 GM/DL 3.5 GM/DL Calcium Level 8.4 MG/DL 9.2 MG/DL Phosphorus Level 3.1 MG/DL 3.3 MG/DL 2.9 MG/DL Magnesium Level 1.8 MG/DL 2.0 MG/DL Alkaline Phosphatase 76 U/L 85 U/L Aspartate Amino Transf (AST/SGOT) 55 U/L 37 U/L Alanine Aminotransferase (ALT/SGPT) 57 U/L 58 U/L Total Bilirubin 0.4 MG/DL 0.3 MG/DL Sodium Level 140 MEQ/L 138 MEQ/L Potassium Level 3.4 MEQ/L 3.9 MEQ/L Chloride Level 106 MEQ/L 107 MEQ/L Carbon Dioxide Level 25.4 MEQ/L 24.0 MEQ/L Anion Gap 9 MEQ/L 7 MEQ/L Estimat Glomerular Filtration Rate 231 ML/MIN 175 ML/MIN Vancomycin Level Trough 14.3 MCG/ML Test 04/02/17 11:45 04/03/17 04:33 White Blood Count 5.0 TH/MM3 4.8 TH/MM3 Red Blood Count 3.97 MIL/MM3 3.94 MIL/MM3 Hemoglobin 12.3 GM/DL 12.3 GM/DL Hematocrit 37.5 % 36.9 % Mean Corpuscular Volume 94.4 FL 93.8 FL Mean Corpuscular Hemoglobin 31.0 PG 31.4 PG Mean Corpuscular Hemoglobin Concent 32.8 % 33.4 % Red Cell Distribution Width 13.6 % 13.5 % Platelet Count 186 TH/MM3 242 TH/MM3 Mean Platelet Volume 9.7 FL 10.1 FL Neutrophils (%) (Auto) 61.2 % 50.7 % Lymphocytes (%) (Auto) 24.1 % 30.2 % Monocytes (%) (Auto) 12.3 % 14.8 % Eosinophils (%) (Auto) 1.6 % 3.7 % Basophils (%) (Auto) 0.8 % 0.6 % Neutrophils # (Auto) 3.1 TH/MM3 2.5 TH/MM3 Lymphocytes # (Auto) 1.2 TH/MM3 1.5 TH/MM3 Monocytes # (Auto) 0.6 TH/MM3 0.7 TH/MM3 Eosinophils # (Auto) 0.1 TH/MM3 0.2 TH/MM3 Basophils # (Auto) 0.0 TH/MM3 0.0 TH/MM3 CBC Comment DIFF FINAL DIFF FINAL Differential Comment Blood Urea Nitrogen 4 MG/DL Creatinine 0.68 MG/DL Random Glucose 101 MG/DL Total Protein 7.6 GM/DL Albumin 3.4 GM/DL Calcium Level 9.0 MG/DL Phosphorus Level 3.0 MG/DL Magnesium Level 1.9 MG/DL Alkaline Phosphatase 85 U/L Aspartate Amino Transf (AST/SGOT) 26 U/L Alanine Aminotransferase (ALT/SGPT) 55 U/L Total Bilirubin 0.3 MG/DL Sodium Level 138 MEQ/L Potassium Level 3.7 MEQ/L Chloride Level 105 MEQ/L Carbon Dioxide Level 26.1 MEQ/L Anion Gap 7 MEQ/L Estimat Glomerular Filtration Rate 166 ML/MIN Imaging Last Impressions Tube Change 04/02/17 0000 Signed Impressions: Service Date/Time: Sunday, April 02, 2017 10:19 - CONCLUSION: Uncomplicated gastrojejunostomy tube exchange as above. Jm Garnica MD Chest X-Ray 03/31/17 0600 Signed Impressions: Service Date/Time: Friday, March 31, 2017 03:39 - CONCLUSION: 1. Tracheostomy in good position. Cardiomegaly with subsegmental basilar dependent airspace disease. Stephan Rich MD Abdomen/Pelvis CT 03/30/17 0000 Signed Impressions: Service Date/Time: Thursday, March 30, 2017 15:46 - CONCLUSION: 1. The gastrojejunostomy tube remains in place. 2. Nonspecific nonobstructive bowel gas pattern which may represent a mild ileus or gastroenteritis. 3. Unremarkable gallbladder. 4. The study is degraded by mild motion and streak artifact. Clayton Mccray MD Abdomen X-Ray 03/30/17 0000 Signed Impressions: Service Date/Time: Thursday, March 30, 2017 04:37 - CONCLUSION: Diffusely dilated loops of bowel. Zachariah Jiménez MD Objective Remarks GENERAL: COMPLETELY NONVERBAL SKIN: Warm and dry. HEAD: Atraumatic. Normocephalic. EYES: Pupils equal and round. No scleral icterus. No injection or drainage. ENT: No nasal bleeding or discharge. Mucous membranes pink and moist. NECK: Trachea midline. No JVD. TRACHEOSTOMY IN PLACE ON T-TUBE CARDIOVASCULAR: Regular rate and rhythm. S1,S2 NO S3 OR S4 RESPIRATORY: No accessory muscle use. COARSE BREATH SOUNDS BL, RHONCHI. Breath sounds equal bilaterally. GASTROINTESTINAL: Abdomen soft, non-tender, nondistended. Hepatic and splenic margins not palpable. PEG--CONDOM CATHETER MUSCULOSKELETAL: Extremities without clubbing, cyanosis, or edema. No obvious deformities. NEUROLOGICAL: NOT Awake and alert. obvious cranial nerve deficits. NOT ABLE TO ASSESS MOTOR OR SENSORY. PSYCHIATRIC: INAppropriate mood and affect; insight and judgment ABnormal. NONVERBAL UNABLE TO ASSESS Procedures 03/31/2017 patient has upper GI bleeding, nothing currently, upper endoscopy showed severe grade D esophagitis biopsy was done, mild gastritis biopsy was done, G J-tube is in place EGD 03-31 Medications and IVs Current Medications Sodium Chloride 1,000 ml @ 2,000 mls/hr Q30M ONCE IV Last administered on 03/30 04:00; Start 03/30/17 at 04:00; Stop 03/30/17 at 04:29; Status DC Ondansetron HCl (Zofran Inj) 4 mg ONCE ONCE IV PUSH Last administered on 05:25; Start 03/30/17 at 04:00; Stop 03/30/17 at 04:01; Status DC Sodium Chloride 1,000 ml @ 2,000 mls/hr Q30M ONCE IV Last administered on 03/30 04:15; Start 03/30/17 at 04:15; Stop 03/30/17 at 04:44; Status DC Lorazepam (Ativan Inj) 1 mg ONCE ONCE IV PUSH Last administered on 03/30/17 05:24; Start 03/30/17 at 04:30; Stop 03/30/17 at 04:31; Status DC Amlodipine Besylate (Norvasc) 10 mg DAILY PEG Last administered on 04/02/17 07 :40; Start 03/30/17 at 09:00 Apixaban (Eliquis) 5 mg BID G-TUBE Last administered on 04/02/17 21:56; Start 03/30/17 at 09:00 Atropine Sulfate (Atropine 1% Opth Soln) 1 drop Q12HR PRN SL For mild/moderate secretions; Start 03/30/17 at 05:30 Baclofen (Lioresal) 20 mg TID G-TUBE Last administered on 04/02/17 15:31; Start 03/30/17 at 09:00 Bisacodyl (Dulcolax Ec) 5 mg DAILY PRN PO CONSTIPATION; Start 03/30/17 at 05:30 ; Status Cancel Ciprofloxacin HCl (Ciloxan 0.3% Opth Soln) 1 drop Q4HR EACH EYE Last administered on 04/03/17 03:35; Start 03/30/17 at 08:00 Famotidine (Pepcid) 40 mg DAILY G-TUBE Last administered on 03/31/17 08:14; Start 03/30/17 at 09:00; Stop 03/31/17 at 13:48; Status DC Guaifenesin (Robitussin Liq) 100 mg Q4H PRN PO COUGH; Start 03/30/17 at 05:30 Hydralazine HCl (Apresoline) 50 mg Q8HR PO Last administered on 04/03/17 06:04 ; Start 03/30/17 at 06:00 Hyoscyamine Sulfate (Levsin) 0.125 mg Q4HR PO Last administered on 04/03/17 04 :05; Start 03/30/17 at 08:00 Albuterol/ Ipratropium (Duoneb Neb) 1 ampule Q4HR NEB INH Last administered on 04/03/17 07:34; Start 03/30/17 at 08:00; Stop 04/03/17 at 07:59; Status DC Levetriacetam (Keppra) 1,000 mg BID G-TUBE Last administered on 04/02/17 22:02 ; Start 03/30/17 at 09:00 Lorazepam (Ativan) 1 mg Q4H PRN G-TUBE for severe anxiety or dyspnea; Start at 05:30 Propranolol HCl (Inderal) 20 mg Q6HR PEG Last administered on 04/03/17 06:04; Start 03/30/17 at 06:00 Senna/Docusate Sodium (Sanam-Colace) 2 tab BID PEG ; Start 03/30/17 at 09:00; Status Cancel Tobramycin Sulfate (Tobramycin Neb) 80 mg Q12HR NEB NEB Last administered on 07:34; Start 03/30/17 at 08:00 Loratadine (Claritin) 5 mg DAILY G-TUBE Last administered on 04/02/17 07:41; Start 03/30/17 at 09:00 Sodium Chloride 1,000 ml @ 100 mls/hr Q10H IV Last administered on 04/03/17 00:03; Start 03/30/17 at 05:20 Sodium Chloride (NS Flush) 2 ml UNSCH PRN IV FLUSH FLUSH AFTER USING IV ACCESS ; Start 03/30/17 at 05:30 Sodium Chloride (NS Flush) 2 ml BID IV FLUSH Last administered on 04/02/17 19: 52; Start 03/30/17 at 09:00 Ondansetron HCl (Zofran Inj) 4 mg Q6H PRN IVP NAUSEA OR VOMITING Last administered on 03/30/17 09:10; Start 03/30/17 at 05:30 Morphine Sulfate (Morphine Inj) 1 mg Q3H PRN IV PUSH Pain 3-5 Last administered on 04/02/17 00:50; Start 03/30/17 at 05:30 Morphine Sulfate (Morphine Inj) 2 mg Q3H PRN IV PUSH Pain 6-10 Last administered on 03/30/17 23:19; Start 03/30/17 at 05:30 Acetaminophen (Ofirmev 1000 Mg/ 100 ml Inj) 1,000 mg Q6H PRN IV FEVER; Start at 05:30; Stop 03/30/17 at 10:09; Status DC Senna/Docusate Sodium (Sanam-Colace) 1 tab BID PO Last administered on 21:56; Start 03/30/17 at 09:00 Magnesium Hydroxide (Milk Of Magnesia Liq) 30 ml Q12H PRN PO MILD - MODERATE CONSTIPATION; Start 03/30/17 at 05:30 Sennosides (Senokot) 17.2 mg Q12H PRN PO MODERATE - SEVERE CONSTIPATION; Start 03/30/17 at 05:30 Bisacodyl (Dulcolax Supp) 10 mg DAILY PRN RECTAL SEVERE CONSITIPATION; Start at 05:30 Lactulose (Lactulose Liq) 30 ml DAILY PRN PO SEVERE CONSITIPATION; Start at 05:30 Pharmacy Profile Note 0 ml @ 0 mls/hr UNSCH OTHER ; Start 03/30/17 at 05:45; Stop 04/02/17 at 14:23; Status DC Cefepime HCl 1000 mg/Sodium Chloride 100 ml @ 200 mls/hr Q12H IV Last administered on 04/03/17 06:05; Start 03/30/17 at 06:00 Vancomycin HCl 1000 mg/Sodium Chloride 250 ml @ 250 mls/hr ONCE ONCE IV Last administered on 03/30/17 07:18; Start 03/30/17 at 06:00; Stop 03/30/17 at 06:59 ; Status DC Lorazepam (Ativan Inj) 1 mg Q2H PRN IV PUSH AGITATION Last administered on 03/30 09:10; Start 03/30/17 at 06:30 Miscellaneous Information 1 [id number] XX ; Start 03/30/17 at 06:30 Chlorhexidine Gluconate (Chlorhexidine 2% Cloth) 3 pack Taper DAILY@04 TOP Last administered on 04/03/17 03:35; Start 03/31/17 at 04:00; Stop 03/27/18 at 03:59 Chlorhexidine Gluconate (Chlorhexidine 2% Cloth) 3 pack UNSCH PRN TOP HYGIENIC CARE; Start 03/30/17 at 06:30 Acetaminophen (Tylenol) 650 mg Q6H PRN PO INCREASED TEMPERATURE; Start at 10:00; Status Cancel Clonidine (Catapres) 0.1 mg Q6H PRN PO SBP>160, DBP>90 Last administered on 23:03; Start 03/30/17 at 10:00 Metoprolol Tartrate (Lopressor) 25 mg BID PRN PO HR>110; Start 03/30/17 at 10: 00 Oxycodone/ Acetaminophen (Percocet 5-325 Mg) 1 tab Q6H PRN PO PAIN; Start at 10:00; Status UNV Potassium Bicarb/ Potassium Chloride (K-Lyte Cl Eff) 25 meq Q12HR PEG Last administered on 04/02/17 21:56; Start 03/30/17 at 21:00 Acetaminophen (Tylenol 650 Mg/ 20 ml Liq) 650 mg Q6H PRN PO FEVER Last administered on 03/30/17 11:26; Start 03/30/17 at 10:15 Acetaminophen (Tylenol Supp) 650 mg Q6H PRN RECTAL FEVER; Start 03/30/17 at 10: 15 Vancomycin HCl 1250 mg/Sodium Chloride 262.5 ml @ 250 mls/hr Q8H IV Last administered on 04/01/17 11:13; Start 03/30/17 at 15:00; Stop 04/01/17 at 12:17 ; Status DC Miscellaneous Information SPECIFIC LAB TO BE JEWEL... ONCE ONCE .XX Last administered on 03/31/17 04:46; Start 03/31/17 at 06:45; Stop 03/31/17 at 06:46 ; Status DC Iohexol (Omnipaque 350 Inj) 100 ml STK-MED ONCE IVCONTRAST Last administered on 03/30/17 16:09; Start 03/30/17 at 16:09; Stop 03/30/17 at 16:10; Status DC Miscellaneous Information SPECIFIC LAB TO BE JEWEL... ONCE ONCE .XX ; Start 04/01 at 06:45; Stop 04/01/17 at 06:46; Status DC Pantoprazole Sodium (Protonix) 20 mg ONCE ONCE PO Last administered on 15:28; Start 03/31/17 at 14:00; Stop 03/31/17 at 14:01; Status DC Potassium Chloride 100 ml @ 50 mls/hr Q2H PRN IV For Potassium 2.8 - 3.2 mEq/L ; Start 04/01/17 at 08:00 Potassium Chloride 100 ml @ 50 mls/hr Q2H PRN IV For Potassium 2.8 - 3.2 mEq/L ; Start 04/01/17 at 08:00 Potassium Bicarb/ Potassium Chloride (K-Lyte Cl Eff) 50 meq UNSCH PRN PO For Potassium 3.3 - 3.5 mEq/L Last administered on 04/01/17 13:58; Start 04/01/17 at 08:00 Potassium Chloride 100 ml @ 25 mls/hr UNSCH PRN IV For Potassium 3.3 - 3.5 mEq /L; Start 04/01/17 at 08:00 Potassium Chloride 100 ml @ 50 mls/hr Q2H PRN IV For Potassium 3.3 - 3.5 mEq/L ; Start 04/01/17 at 08:00 Magnesium Sulfate 4 gm/Sodium Chloride 100 ml @ 50 mls/hr UNSCH PRN IV For Magnesium 0.9 - 1.1 mg/dL; Start 04/01/17 at 08:00 Magnesium Oxide (Mag-Ox) 800 mg UNSCH PRN PO For Magnesium 1.2 - 1.6 mg/dL; Start 04/01/17 at 08:00 Magnesium Sulfate 2 gm/Sodium Chloride 100 ml @ 50 mls/hr UNSCH PRN IV For Magnesium 1.2 - 1.6 mg/dL; Start 04/01/17 at 08:00 Potassium Phosphate (K-Phos) 2,000 mg Q4H PRN PO For Phosphorus < 2.5 mg/dL; Start 04/01/17 at 08:00 Sodium Phosphate 30 mmol/Sodium Chloride 250 ml @ 42 mls/hr UNSCH PRN IV For Phosphorus < 2.5 mg/dL; Start 04/01/17 at 08:00 Potassium Phosphate (K-Phos) 2,000 mg UNSCH PRN PO/TUBE SEE LABEL COMMENTS; Start 04/01/17 at 08:00 Potassium Phosphate 30 mmol/ Sodium Chloride 260 ml @ 42 mls/hr UNSCH PRN IV SEE LABEL COMMENTS; Start 04/01/17 at 08:00 Vancomycin HCl 1250 mg/Sodium Chloride 262.5 ml @ 250 mls/hr Q8H IV Last administered on 04/02/17t 12:11; Start 04/01/17 at 20:00; Stop 04/02/17 at 14:23 ; Status DC Miscellaneous Information SPECIFIC LAB TO BE DRAWN:VANCOMYCIN TROUGH DATE TO... ONCE ONCE .XX ; Start 04/03/17 at 03:45; Stop 04/03/17 at 03:46; Status Cancel Propofol (Diprivan 200 Mg/20 ml Inj) 200 mg STK-MED ONCE IV ; Start 03/31/17 at 07:56; Stop 04/02/17 at 07:56; Status DC Propofol (Diprivan 200 Mg/20 ml Inj) 20 mg STK-MED ONCE IV ; Start 03/31/17 at 10:33; Stop 04/02/17 at 10:33; Status DC Iohexol (Omnipaque 350 Inj) 20 ml STK-MED ONCE J-TUBE Last administered on 04/02t 10:57; Start 04/02/17 at 10:57; Stop 04/02/17 at 10:58; Status DC Linezolid (Zyvox) 600 mg Q12HR PO Last administered on 04/02/17t 21:56; Start 04/02/17 at 14:30 Urinary Catheter: No Vascular Central Line Catheter: No A/P Problem List: (1) Sepsis ICD Code: A41.9 - Sepsis, unspecified organism Status: Resolved (2) Chronic respiratory failure ICD Code: J96.10 - Chronic respiratory failure, unspecified whether with hypoxia or hypercapnia (3) History of DVT (deep vein thrombosis) ICD Code: Z86.718 - Personal history of other venous thrombosis and embolism Status: Acute (4) Permanent vegetative state ICD Code: R40.3 - Persistent vegetative state Status: Acute (5) Seizure disorder ICD Code: G40.909 - Epilepsy, unspecified, not intractable, without status epilepticus Assessment and Plan 1. Sepsis: Recurrent, multiple admissions for same. Unclear source. Recent admit 03/21-03/29/17 for same, s/p completion of IV Abx and eval by ID. Temp 102.2 rectal, WBC 14.7, previously 6.5 on 03/29/17. CXR w/ no acute findings, images reviewed by me. U/a pending. S/p Blood Cultures in ER. Re-consult ID for further recommendations as unclear if infectious etiology. H/o Pseudomonas PNA on 03/23/17, cultures otherwise negative. 2. Chronic Respiratory Failure: S/p Trach, O2 sat stable at 100% on T-piece. CXR w/ no acute findings, images reviewed by me. Resume home DuoNeb, Tobra Neb 3. H/o DVT: on Eliquis, will continue. 4. 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 Chronic. At baseline. 5. Seizure Disorder: No seizure activity noted. Resume home medications. 6. DVT Prophylaxis: Continue home Eliquis POSSIBLE ASPIRATION AT NURSING FACILITY- NO FEVERS HERE- RESTART TUBE FEEDS FEVERS HX PSEUDOMONAS PNA--MRSA STARTED ON ZYVOX BY ID CHECK GASTROCCULT-was positive to undergo EGD today March 31 RESTART TUBE FEEDS DW RN AND ID EGD ON 03-31 SHOWED 03/31/2017 patient has upper GI bleeding, nothing currently, upper endoscopy showed severe grade D esophagitis biopsy was done, mild gastritis biopsy was done, G J-tube is in place Has remained afebrile since coming to the ICU 04-02 HAD PEG CHANGED OUT ID ADJUSTED MEDS FOR MRSA POSITIVE ON ZYVOX NOW Hudson Luz DO Apr 03, 2017 09:07
[2017-04-03] MEDS: levETIRAcetam 500 MG TAB G-TUBE SCH ×2 (09:33→21:24)
[2017-04-03] MEDS: POTASSIUM CHLORIDE 25 MEQ EFFERVESCENT TAB PEG SCH ×2 (09:34→21:23)
[2017-04-03] MEDS: APIXABAN 5 MG TABLET G-TUBE SCH ×2 (09:34→21:23)
[2017-04-03] MEDS: DOCUSATE SODIUM 50 MG/SENNA 8.6 MG TAB PO SCH ×2 (09:34→21:22)
[2017-04-03] MEDS: LINEZOLID 600 MG TAB PO SCH ×2 (09:34→21:24)
[2017-04-03] MEDS: BACLOFEN 20 MG TAB G-TUBE SCH ×3 (09:38→17:32)
[2017-04-03] MEDS: cloNIDine HCL 0.1 MG TAB PO PRN (12:03)
[2017-04-03] MEDS: SODIUM CHLORIDE 0.9% FLUSH 10 ML FLUSH IV FLUSH SCH ×2 (12:21→21:24)
--- NOTE | 2017-04-03 16:30 | HHI.IDPN ---
Subjective Subjective Remarks Patient is a 31-year-old male, well-known to me, recently discharged from the hospital March 29, readmitted for recurrent fevers. This is his third admission since February. He was admitted February 21 and at that time he was found to have viridans strep sepsis, as well as Pseudomonas pneumonia. Required ventilatory support at that time, and he improved. He has a chronic trach. At one time he required bronchoscopy during that hospitalization for hemoptysis, and that resolved, and no active bleeding was seen during bronchoscopy. He completed treatment for his bacteremia and pneumonia, and he was discharged back to the care home on March 20. He was readmitted for fevers, and again received treatment for Pseudomonas pneumonia. He was stable, and went back to the care home on March 29, and came back because of fevers. His temperature was up to 102+, he is tachycardic between 140-150. He had a chest x-ray which was limited but there was no obvious infiltrates. He did not have any central line. He has a condom catheter in place. There is been no real change with his neurological status. There is also been no mention of any diarrhea. His WBC was up to 14. He is not on pressors. He is on T piece with good sats. He has a lot of drooling from his mouth. His neurological status remains the same, and that he is unresponsive, keeps his eyes closed, and very spastic and rigid in his extremities. Infectious disease consultation has been requested to evaluate the patient with recurrent fevers. Notes reviewed Temps ok WBC normal Has copious oral secretions Sputum with MRSA Last CXR with basilar infiltrates Antibiotics Cefepime Zyvox Lines PIV Past Medical History Chronic tracheostomy Recurrent aspiration pneumonia History of upper extremity DVT Onward hypertension Hyperlipidemia Diabetes History of pancreatitis and pseudocyst History of multidrug resistant infections including MRSA, and ESBL positive organism Recent treatment for viridans strep bacteremia related to a midline Past Surgical History Status post trach and revision Status post G-tube placement and revision Previous bronchoscopy Allergies: Coded Allergies: haloperidol (Unverified Adverse Reaction, Severe, Seizures, 03/30/17) Objective . Vital Signs Date Time Temp Pulse Resp B/P (MAP) Pulse Ox O2 Delivery O2 Flow Rate FiO2 04/03/17 07:30 100 T-piece 28 04/03/17 06:00 90 04/03/17 04:00 98.5 67 22 135/70 (91) 100 04/03/17 04:00 67 04/03/17 02:00 74 04/03/17 00:00 104 04/03/17 00:00 98.5 104 23 142/68 (92) 100 04/02/17 22:00 89 04/02/17 20:14 100 T-piece 6.00 28 04/02/17 20:00 68 04/02/17 20:00 97.9 68 24 134/62 (86) 97 04/02/17 18:00 59 . Laboratory Tests Test 04/02/17 11:45 04/03/17 04:33 White Blood Count 5.0 TH/MM3 4.8 TH/MM3 Red Blood Count 3.97 MIL/MM3 3.94 MIL/MM3 Hemoglobin 12.3 GM/DL 12.3 GM/DL Hematocrit 37.5 % 36.9 % Mean Corpuscular Volume 94.4 FL 93.8 FL Mean Corpuscular Hemoglobin 31.0 PG 31.4 PG Mean Corpuscular Hemoglobin Concent 32.8 % 33.4 % Red Cell Distribution Width 13.6 % 13.5 % Platelet Count 186 TH/MM3 242 TH/MM3 Mean Platelet Volume 9.7 FL 10.1 FL Neutrophils (%) (Auto) 61.2 % 50.7 % Lymphocytes (%) (Auto) 24.1 % 30.2 % Monocytes (%) (Auto) 12.3 % 14.8 % Eosinophils (%) (Auto) 1.6 % 3.7 % Basophils (%) (Auto) 0.8 % 0.6 % Neutrophils # (Auto) 3.1 TH/MM3 2.5 TH/MM3 Lymphocytes # (Auto) 1.2 TH/MM3 1.5 TH/MM3 Monocytes # (Auto) 0.6 TH/MM3 0.7 TH/MM3 Eosinophils # (Auto) 0.1 TH/MM3 0.2 TH/MM3 Basophils # (Auto) 0.0 TH/MM3 0.0 TH/MM3 CBC Comment DIFF FINAL DIFF FINAL Differential Comment Laboratory Tests Test 04/02/17 11:19 04/03/17 04:33 Blood Urea Nitrogen 6 MG/DL 4 MG/DL Creatinine 0.65 MG/DL 0.68 MG/DL Random Glucose 88 MG/DL 101 MG/DL Total Protein 7.8 GM/DL 7.6 GM/DL Albumin 3.5 GM/DL 3.4 GM/DL Calcium Level 9.2 MG/DL 9.0 MG/DL Phosphorus Level 2.9 MG/DL 3.0 MG/DL Magnesium Level 2.0 MG/DL 1.9 MG/DL Alkaline Phosphatase 85 U/L 85 U/L Aspartate Amino Transf (AST/SGOT) 37 U/L 26 U/L Alanine Aminotransferase (ALT/SGPT) 58 U/L 55 U/L Total Bilirubin 0.3 MG/DL 0.3 MG/DL Sodium Level 138 MEQ/L 138 MEQ/L Potassium Level 3.9 MEQ/L 3.7 MEQ/L Chloride Level 107 MEQ/L 105 MEQ/L Carbon Dioxide Level 24.0 MEQ/L 26.1 MEQ/L Anion Gap 7 MEQ/L 7 MEQ/L Estimat Glomerular Filtration Rate 175 ML/MIN 166 ML/MIN Microbiology Date/Time Source Procedure Growth Status 04/01/17 01:30 Sputum Endotracheal Gram Stain - Final Complete 04/01/17 01:30 Sputum Culture - Final S. Aureus Mrsa Complete Imaging Chest X-Ray 03/31/17 0600 Signed Impressions: Service Date/Time: Friday, March 31, 2017 03:39 - CONCLUSION: 1. Tracheostomy in good position. Cardiomegaly with subsegmental basilar dependent airspace disease. Stephan Rich MD Abdomen/Pelvis CT 03/30/17 0000 Signed Impressions: Service Date/Time: Thursday, March 30, 2017 15:46 - CONCLUSION: 1. The gastrojejunostomy tube remains in place. 2. Nonspecific nonobstructive bowel gas pattern which may represent a mild ileus or gastroenteritis. 3. Unremarkable gallbladder. 4. The study is degraded by mild motion and streak artifact. Clayton Mccray MD Abdomen X-Ray 03/30/17 0000 Signed Impressions: Service Date/Time: Thursday, March 30, 2017 04:37 - CONCLUSION: Diffusely dilated loops of bowel. Zachariah Jiménez MD Physical Exam GENERAL: Opens eyes when stimulated, no interaction, not in respiratory distress, has chronic trach, drooling SKIN: Warm and dry. No generalized rash, no ecchymoses and no evidence of embolic lesions. HEAD: Atraumatic. Normocephalic. No temporal wasting, or tenderness. EYES: [place] conjunctiva. No petechia or hemorrhage. Pupils equal, round and reactive to light. No scleral icterus. No injection or drainage. EARS, NOSE AND THROAT: Nose without bleeding or purulent nasal discharge. Moist oral mucosa, has a lot of oral secretions coming out of his mouth. NECK: Trachea midline. Supple and no meningeal signs CARDIOVASCULAR: Tachycardic, regular rate and rhythm. No murmurs, rubs or gallops heard RESPIRATORY: Clear to auscultation. Breath sounds equal bilaterally. No rales , wheezing or rhonchi. Decreased at the bases. ABDOMEN: Soft, nondistended, bowel sounds present and normoactive. No reaction to palpation, no guarding. No organomegaly. PEG site ok EXTREMITIES: No clubbing, cyanosis, or edema. No joint effusion. Well perfused and warm. NEUROLOGICAL: No interaction. Very spastic UE and LE. Both feet plantar flexed. 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
[2017-04-03] MEDS: ATROPINE SULFATE 1% OPHT SOLN 2 ML BTL SL PRN (17:32)
[2017-04-03] MEDS: ACETAMINOPHEN 650 MG/20.3 ML UDC PO PRN (17:33)
--- NOTE | 2017-04-03 20:43 | MB ---
cc: Lisette OCONNOR M.D. DATE OF CONSULTATION 04/03/17 REASON FOR CONSULTATION Chronic respiratory failure and tracheostomy management. HISTORY OF PRESENT ILLNESS This is a 31-year-old man who has had a traumatic brain injury with persistent vegetative state, has a tracheostomy and a PEG tube and has had multiple admissions to the hospital with a past history for DVT and he has been on Coumadin and was now admitted with recurrent pneumonia and sepsis and seizure disorder. The patient has been on a T-bar at 30% and his O2 sats have been maintained over 99%. He is awake and is in no respiratory distress at this time. A chest x-ray showed basilar infiltrates but no effusions. Most of the history is taken from the chart. PAST HISTORY Includes history for a tracheostomy and PEG tube placement. History of traumatic brain injury with vegetative state. History of recurrent pneumonia with sepsis and history for seizure disorder. ALLERGIES HALDOL. FAMILY HISTORY Noncontributory. HABITS The patient is a nonsmoker. No alcohol use. REVIEW OF SYSTEMS Unable to obtain, he is in a permanent vegetative state. PHYSICAL EXAMINATION GENERAL: This young black male who is awake, in no respiratory distress. He is unresponsive to any commands. VITAL SIGNS: Blood pressure 140/80, pulse is 104, respirations 24, temperature 99. HEENT: Head normocephalic. Pupils are reactive. Sclerae are clear. Throat has few secretions. Oral mucosa is clear. NECK: Tracheostomy tube in place. No venous distension. No thyromegaly. CHEST: Distant breath sounds with occasional wheezes anteriorly. No crackles on either side. HEART: Heart sounds are regular S1-S2 with no murmur. No S3. ABDOMEN: Soft, scaphoid with PEG tube in place. Bowel sounds are active. EXTREMITIES: Muscle wasting with contractures and diminished peripheral pulses. Reflexes not elicited. The patient does not move his extremities voluntarily. SKIN: Skin was dry and cool. IMPRESSION 1. Chronic respiratory failure. 2. Status post tracheostomy and PEG tube placement. 3. History of head injury with persistent vegetative state. 4. Basilar pneumonia with sepsis. 5. History of seizures. PLAN The patient will be maintained on a T-bar at 25%, nebulized DuoNeb solution given at night and a.m. Frequent tracheal toilet and suctioning to be done. Continue with antibiotic coverage as ordered for MRSA, pneumonia and ___ drainage to be done as well. Tube feedings have been started per protocol which we will continue and a followup chest x-ray to evaluate the lung infiltrates. Thank you Dr. Canseco for this consultation. Santo Oconnor MD JJORGE A/GIOVANNI /8:02 PM /8:28 PM
[2017-04-04] VITALS (22 sets, daily range): BP systolic 110–174; BP diastolic 55–89; PULSE 42–123; RESP 19–24; TEMP 97.7–99.5; O2SAT 66–100
[2017-04-04] MEDS: CHLORHEXIDINE GLUCONATE 2 % 1 PACK (2 CLOTHS) TOP SCH (04:00)
[2017-04-04] MEDS: SODIUM CHLOR 0.9% 1000 ML INJ 1,000 ML IV SCH ×2 (05:19→15:20)
[2017-04-04] MEDS: CIPROFLOXACIN 0.3% OPTH SOLN 2.5 ML BTL EACH EYE SCH ×6 (05:19→23:06)
[2017-04-04] MEDS: HYOSCYAMINE 0.125 MG TAB PO SCH ×6 (05:19→23:06)
[2017-04-04] MEDS: PROPRANOLOL HCL 20 MG TAB PEG SCH ×4 (05:20→23:06)
[2017-04-04] MEDS: hydrALAZINE HCL 50 MG TAB PO SCH ×3 (05:20→23:06)
--- NOTE | 2017-04-04 08:25 | HHI.PR ---
Subjective Remarks This is an unfortunate 31-year-old male with PMH of Traumatic Brain Injury and Persistent Vegetative State, s/p Trach/PEG, h/o DVT on Coumadin, Recurrent PNA/ Sepsis and Seizure Disorder who was brought to the ER secondary to fever and tachycardia. Multiple admissions for same, s/p treatment for Sepsis and returns within 24hrs for readmission due to recurrent symptoms. Most recent admit 03/21-03/29/17 for Sepsis/PNA, s/p eval by ID w/ completion of antibiotics. Shortly after arrival, developed fever/chills and tachycardia and sent back to ER. On arrival here, BP 142/88, HR 109, O2 sat 100% on trach, Temp 101.0 rectal. WBC 14.7, WBC 6.5 on 03/29/17. Chemistry unremarkable. Lactic Acid 2.4. CXR with no definite infiltrate. Abdominal X-ray with diffusely dilated loops of bowel. S/p Blood Cultures in ER. POSSIBLE ASPIRATION AT [facility] FEVERS NOTED POSSIBLE UPPER GI BLEED SYDNEE RN AND ID AM CHEST XRAY AM LABS 03-31 patient to have EGD later today Discussed with family at bedside Had gastro-occult positive gastroenterology was consult and will have an EGD today A.m. labs Continue current antibiotics per infectious disease 04-01 had EGD YESTERDAY WITH ESOPHAGITIS AND GASTRITIS--03/31/2017 patient has upper GI bleeding, nothing currently, upper endoscopy showed severe grade D esophagitis biopsy was done, mild gastritis biopsy was done, G J-tube is in place RESTART TUBE FEEDS REPLACE POTASSIUM SYDNEE MEDINA 04-02 TO HAVE PEG TUBE REPLACED TODAY NO FEVERS CURRENTLY 04-03 had PEG EXCHANGE YESTERDAY MEDS ADJUSTED BY ID 04-04 SEEN BY PULMONARY AND ID YESTERDAY NO NEW COMPLAINTS CONTINUE ON ZYVOX AND TOBRAMYCIN SYDNEE MEDNIA Objective Vitals Vital Signs Date Time Temp Pulse Resp B/P (MAP) Pulse Ox O2 Delivery O2 Flow Rate FiO2 04/04/17 06:00 50 04/04/17 04:00 46 04/04/17 04:00 97.7 46 19 123/60 (81) 100 04/04/17 02:00 83 04/04/17 00:00 68 04/04/17 00:00 98.7 68 21 133/60 (84) 97 04/03/17 22:00 52 04/03/17 20:16 100 T-piece 6.00 28 04/03/17 20:00 98.7 57 19 123/60 (81) 90 04/03/17 20:00 57 I/O 04/03/17 04/03/17 04/03/17 04/04/17 04/04/17 04/04/17 07:00 15:00 23:00 07:00 15:00 23:00 Intake Total 2002 ml 753 ml 1836 ml Output Total 950 ml 800 ml 1120 ml Balance 1052 ml -47 ml 716 ml Intake Oral 0 ml IV Total 1479 ml 100 ml 1000 ml Tube Feeding 523 ml 533 ml 636 ml Tube Irrigant 120 ml 200 ml Output Urine Total 950 ml 800 ml 1120 ml # Bowel Movements 0 0 0 Result Diagram: 04/03/17 0433 04/03/17 043 Other Results Laboratory Tests Test 04/01/17 09:39 04/01/17 12:10 04/02/17 11:19 04/02/17 11:45 Vancomycin Level Trough 14.3 MCG/ML Phosphorus Level 3.3 MG/DL 2.9 MG/DL Blood Urea Nitrogen 6 MG/DL Creatinine 0.65 MG/DL Random Glucose 88 MG/DL Total Protein 7.8 GM/DL Albumin 3.5 GM/DL Calcium Level 9.2 MG/DL Magnesium Level 2.0 MG/DL Alkaline Phosphatase 85 U/L Aspartate Amino Transf (AST/SGOT) 37 U/L Alanine Aminotransferase (ALT/SGPT) 58 U/L Total Bilirubin 0.3 MG/DL Sodium Level 138 MEQ/L Potassium Level 3.9 MEQ/L Chloride Level 107 MEQ/L Carbon Dioxide Level 24.0 MEQ/L Anion Gap 7 MEQ/L Estimat Glomerular Filtration Rate 175 ML/MIN White Blood Count 5.0 TH/MM3 Red Blood Count 3.97 MIL/MM3 Hemoglobin 12.3 GM/DL Hematocrit 37.5 % Mean Corpuscular Volume 94.4 FL Mean Corpuscular Hemoglobin 31.0 PG Mean Corpuscular Hemoglobin Concent 32.8 % Red Cell Distribution Width 13.6 % Platelet Count 186 TH/MM3 Mean Platelet Volume 9.7 FL Neutrophils (%) (Auto) 61.2 % Lymphocytes (%) (Auto) 24.1 % Monocytes (%) (Auto) 12.3 % Eosinophils (%) (Auto) 1.6 % Basophils (%) (Auto) 0.8 % Neutrophils # (Auto) 3.1 TH/MM3 Lymphocytes # (Auto) 1.2 TH/MM3 Monocytes # (Auto) 0.6 TH/MM3 Eosinophils # (Auto) 0.1 TH/MM3 Basophils # (Auto) 0.0 TH/MM3 CBC Comment DIFF FINAL Differential Comment Test 04/03/17 04:33 White Blood Count 4.8 TH/MM3 Red Blood Count 3.94 MIL/MM3 Hemoglobin 12.3 GM/DL Hematocrit 36.9 % Mean Corpuscular Volume 93.8 FL Mean Corpuscular Hemoglobin 31.4 PG Mean Corpuscular Hemoglobin Concent 33.4 % Red Cell Distribution Width 13.5 % Platelet Count 242 TH/MM3 Mean Platelet Volume 10.1 FL Neutrophils (%) (Auto) 50.7 % Lymphocytes (%) (Auto) 30.2 % Monocytes (%) (Auto) 14.8 % Eosinophils (%) (Auto) 3.7 % Basophils (%) (Auto) 0.6 % Neutrophils # (Auto) 2.5 TH/MM3 Lymphocytes # (Auto) 1.5 TH/MM3 Monocytes # (Auto) 0.7 TH/MM3 Eosinophils # (Auto) 0.2 TH/MM3 Basophils # (Auto) 0.0 TH/MM3 CBC Comment DIFF FINAL Differential Comment Blood Urea Nitrogen 4 MG/DL Creatinine 0.68 MG/DL Random Glucose 101 MG/DL Total Protein 7.6 GM/DL Albumin 3.4 GM/DL Calcium Level 9.0 MG/DL Phosphorus Level 3.0 MG/DL Magnesium Level 1.9 MG/DL Alkaline Phosphatase 85 U/L Aspartate Amino Transf (AST/SGOT) 26 U/L Alanine Aminotransferase (ALT/SGPT) 55 U/L Total Bilirubin 0.3 MG/DL Sodium Level 138 MEQ/L Potassium Level 3.7 MEQ/L Chloride Level 105 MEQ/L Carbon Dioxide Level 26.1 MEQ/L Anion Gap 7 MEQ/L Estimat Glomerular Filtration Rate 166 ML/MIN Imaging Last Impressions Tube Change 04/02/17 0000 Signed Impressions: Service Date/Time: Sunday, April 02, 2017 10:19 - CONCLUSION: Uncomplicated gastrojejunostomy tube exchange as above. Jm Garnica MD Chest X-Ray 03/31/17 0600 Signed Impressions: Service Date/Time: Friday, March 31, 2017 03:39 - CONCLUSION: 1. Tracheostomy in good position. Cardiomegaly with subsegmental basilar dependent airspace disease. Stephan Rich MD Abdomen/Pelvis CT 03/30/17 0000 Signed Impressions: Service Date/Time: Thursday, March 30, 2017 15:46 - CONCLUSION: 1. The gastrojejunostomy tube remains in place. 2. Nonspecific nonobstructive bowel gas pattern which may represent a mild ileus or gastroenteritis. 3. Unremarkable gallbladder. 4. The study is degraded by mild motion and streak artifact. Clayton Mccray MD Abdomen X-Ray 03/30/17 0000 Signed Impressions: Service Date/Time: Thursday, March 30, 2017 04:37 - CONCLUSION: Diffusely dilated loops of bowel. Zachariah Jiménez MD Objective Remarks GENERAL: COMPLETELY NONVERBAL SKIN: Warm and dry. HEAD: Atraumatic. Normocephalic. EYES: Pupils equal and round. No scleral icterus. No injection or drainage. ENT: No nasal bleeding or discharge. Mucous membranes pink and moist. NECK: Trachea midline. No JVD. TRACHEOSTOMY IN PLACE ON T-TUBE CARDIOVASCULAR: Regular rate and rhythm. S1,S2 NO S3 OR S4 RESPIRATORY: No accessory muscle use. COARSE BREATH SOUNDS BL, RHONCHI. Breath sounds equal bilaterally. GASTROINTESTINAL: Abdomen soft, non-tender, nondistended. Hepatic and splenic margins not palpable. PEG--CONDOM CATHETER MUSCULOSKELETAL: Extremities without clubbing, cyanosis, or edema. No obvious deformities. NEUROLOGICAL: NOT Awake and alert. obvious cranial nerve deficits. NOT ABLE TO ASSESS MOTOR OR SENSORY. PSYCHIATRIC: INAppropriate mood and affect; insight and judgment ABnormal. NONVERBAL UNABLE TO ASSESS Procedures 03/31/2017 patient has upper GI bleeding, nothing currently, upper endoscopy showed severe grade D esophagitis biopsy was done, mild gastritis biopsy was done, G J-tube is in place EGD 03-31 Medications and IVs Laboratory Tests Test 04/01/17 09:39 04/01/17 12:10 04/02/17 11:19 04/02/17 11:45 Vancomycin Level Trough 14.3 MCG/ML Phosphorus Level 3.3 MG/DL 2.9 MG/DL Blood Urea Nitrogen 6 MG/DL Creatinine 0.65 MG/DL Random Glucose 88 MG/DL Total Protein 7.8 GM/DL Albumin 3.5 GM/DL Calcium Level 9.2 MG/DL Magnesium Level 2.0 MG/DL Alkaline Phosphatase 85 U/L Aspartate Amino Transf (AST/SGOT) 37 U/L Alanine Aminotransferase (ALT/SGPT) 58 U/L Total Bilirubin 0.3 MG/DL Sodium Level 138 MEQ/L Potassium Level 3.9 MEQ/L Chloride Level 107 MEQ/L Carbon Dioxide Level 24.0 MEQ/L Anion Gap 7 MEQ/L Estimat Glomerular Filtration Rate 175 ML/MIN White Blood Count 5.0 TH/MM3 Red Blood Count 3.97 MIL/MM3 Hemoglobin 12.3 GM/DL Hematocrit 37.5 % Mean Corpuscular Volume 94.4 FL Mean Corpuscular Hemoglobin 31.0 PG Mean Corpuscular Hemoglobin Concent 32.8 % Red Cell Distribution Width 13.6 % Platelet Count 186 TH/MM3 Mean Platelet Volume 9.7 FL Neutrophils (%) (Auto) 61.2 % Lymphocytes (%) (Auto) 24.1 % Monocytes (%) (Auto) 12.3 % Eosinophils (%) (Auto) 1.6 % Basophils (%) (Auto) 0.8 % Neutrophils # (Auto) 3.1 TH/MM3 Lymphocytes # (Auto) 1.2 TH/MM3 Monocytes # (Auto) 0.6 TH/MM3 Eosinophils # (Auto) 0.1 TH/MM3 Basophils # (Auto) 0.0 TH/MM3 CBC Comment DIFF FINAL Differential Comment Test 04/03/17 04:33 White Blood Count 4.8 TH/MM3 Red Blood Count 3.94 MIL/MM3 Hemoglobin 12.3 GM/DL Hematocrit 36.9 % Mean Corpuscular Volume 93.8 FL Mean Corpuscular Hemoglobin 31.4 PG Mean Corpuscular Hemoglobin Concent 33.4 % Red Cell Distribution Width 13.5 % Platelet Count 242 TH/MM3 Mean Platelet Volume 10.1 FL Neutrophils (%) (Auto) 50.7 % Lymphocytes (%) (Auto) 30.2 % Monocytes (%) (Auto) 14.8 % Eosinophils (%) (Auto) 3.7 % Basophils (%) (Auto) 0.6 % Neutrophils # (Auto) 2.5 TH/MM3 Lymphocytes # (Auto) 1.5 TH/MM3 Monocytes # (Auto) 0.7 TH/MM3 Eosinophils # (Auto) 0.2 TH/MM3 Basophils # (Auto) 0.0 TH/MM3 CBC Comment DIFF FINAL Differential Comment Blood Urea Nitrogen 4 MG/DL Creatinine 0.68 MG/DL Random Glucose 101 MG/DL Total Protein 7.6 GM/DL Albumin 3.4 GM/DL Calcium Level 9.0 MG/DL Phosphorus Level 3.0 MG/DL Magnesium Level 1.9 MG/DL Alkaline Phosphatase 85 U/L Aspartate Amino Transf (AST/SGOT) 26 U/L Alanine Aminotransferase (ALT/SGPT) 55 U/L Total Bilirubin 0.3 MG/DL Sodium Level 138 MEQ/L Potassium Level 3.7 MEQ/L Chloride Level 105 MEQ/L Carbon Dioxide Level 26.1 MEQ/L Anion Gap 7 MEQ/L Estimat Glomerular Filtration Rate 166 ML/MIN Urinary Catheter: No Vascular Central Line Catheter: No A/P Problem List: (1) Sepsis ICD Code: A41.9 - Sepsis, unspecified organism Status: Resolved (2) Chronic respiratory failure ICD Code: J96.10 - Chronic respiratory failure, unspecified whether with hypoxia or hypercapnia (3) History of DVT (deep vein thrombosis) ICD Code: Z86.718 - Personal history of other venous thrombosis and embolism Status: Acute (4) Permanent vegetative state ICD Code: R40.3 - Persistent vegetative state Status: Acute (5) Seizure disorder ICD Code: G40.909 - Epilepsy, unspecified, not intractable, without status epilepticus Assessment and Plan 1. Sepsis: Recurrent, multiple admissions for same. Unclear source. Recent admit 03/21-03/29/17 for same, s/p completion of IV Abx and eval by ID. Temp 102.2 rectal, WBC 14.7, previously 6.5 on 03/29/17. CXR w/ no acute findings, images reviewed by me. U/a pending. S/p Blood Cultures in ER. Re-consult ID for further recommendations as unclear if infectious etiology. H/o Pseudomonas PNA on 03/23/17, cultures otherwise negative. 2. Chronic Respiratory Failure: S/p Trach, O2 sat stable at 100% on T-piece. CXR w/ no acute findings, images reviewed by me. Resume home DuoNeb, Tobra Neb 3. H/o DVT: on Eliquis, will continue. 4. 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 Chronic. At baseline. 5. Seizure Disorder: No seizure activity noted. Resume home medications. 6. DVT Prophylaxis: Continue home Eliquis POSSIBLE ASPIRATION AT NURSING FACILITY- NO FEVERS HERE- RESTART TUBE FEEDS FEVERS HX PSEUDOMONAS PNA--MRSA STARTED ON ZYVOX BY ID CHECK GASTROCCULT-was positive to undergo EGD today March 31 RESTART TUBE FEEDS DW RN AND ID EGD ON 03-31 SHOWED 03/31/2017 patient has upper GI bleeding, nothing currently, upper endoscopy showed severe grade D esophagitis biopsy was done, mild gastritis biopsy was done, G J-tube is in place Has remained afebrile since coming to the ICU 04-02 HAD PEG CHANGED OUT ID ADJUSTED MEDS FOR MRSA POSITIVE ON ZYVOX NOW TOBRAMYCIN CONTINUE CURRENT TREATMENTS DC TO SNF WHEN CLEARED BY Hudson Mancini DO Apr 04, 2017 08:25
[2017-04-04] MEDS: levETIRAcetam 500 MG TAB G-TUBE SCH ×2 (09:00→20:43)
[2017-04-04] MEDS: DOCUSATE SODIUM 50 MG/SENNA 8.6 MG TAB PO SCH ×2 (09:00→20:43)
[2017-04-04] MEDS: POTASSIUM CHLORIDE 25 MEQ EFFERVESCENT TAB PEG SCH ×2 (09:00→20:44)
[2017-04-04] MEDS: APIXABAN 5 MG TABLET G-TUBE SCH ×2 (09:00→20:43)
[2017-04-04] MEDS: RESP: TOBRAMYCIN SULFATE 80 MG/2 ML NEB NEB SCH ×2 (09:43→19:41)
[2017-04-04 10:55] LABS: AUTOMATED NEUTROPHIL # 2.2 TH/MM3 (1.8-7.7); BASOPHIL % 0.9 % (0.0-2.0); EOSINOPHIL # 0.1 TH/MM3 (0-0.4); EOSINOPHIL % 3.3 % (0.0-4.0); HEMATOCRIT 35.3 % (39.0-51.0); HEMO FLAGS DIFF FINAL; LYMPH % 31.6 % (9.0-44.0); LYMPHOCYTE # 1.3 TH/MM3 (1.0-4.8); MEAN CELL VOLUME 92.9 FL (80.0-100.0); MEAN CORPUSCULAR HEMOGLOBIN 31.6 PG (27.0-34.0); MONO % 12.8 % (0.0-8.0); NEUT % 51.4 % (16.0-70.0); PLATELET COUNT 175 TH/MM3 (150-450); RED CELL DISTRIBUTION WIDTH 12.9 % (11.6-17.2); WHITE BLOOD COUNT 4.2 TH/MM3 (4.0-11.0)
[2017-04-04 11:35] LABS: ALKALINE PHOSPHATASE 79 U/L (45-117); ALT (GPT) 49 U/L (12-78); ANION GAP 8 MEQ/L (5-15); AST (GOT) 37 U/L (15-37); BICARBONATE 24.5 MEQ/L (21.0-32.0); CHLORIDE 107 MEQ/L (98-107); GLOMERULAR FILTRATION RATE 221 ML/MIN (>89); MAGNESIUM 2.2 MG/DL (1.5-2.5); SODIUM (NA) 139 MEQ/L (136-145); TOTAL BILIRUBIN ADULT 0.3 MG/DL (0.2-1.0)
[2017-04-04 11:38] LABS: BLOOD UREA NITROGEN 6 MG/DL (7-18)
[2017-04-04] MEDS: BACLOFEN 20 MG TAB G-TUBE SCH ×3 (13:00→17:26)
[2017-04-04] MEDS: LINEZOLID 600 MG TAB PO SCH ×2 (16:44→20:43)
[2017-04-04] MEDS: LORATADINE 10 MG TAB G-TUBE SCH ×2 (16:44→16:57)
[2017-04-04] MEDS: SODIUM CHLORIDE 0.9% FLUSH 10 ML FLUSH IV FLUSH SCH ×2 (16:57→21:00)
[2017-04-04] MEDS: ACETAMINOPHEN 650 MG/20.3 ML UDC PO PRN (17:26)
[2017-04-04] MEDS: ATROPINE SULFATE 1% OPHT SOLN 2 ML BTL SL PRN (17:27)
--- NOTE | 2017-04-04 18:49 | HHI.PR ---
Subjective Remarks Not responsive. On a T Collar at 28 %. No fever. Trach site is clear. Objective Vital Signs Date Time Temp Pulse Resp B/P (MAP) Pulse Ox O2 Delivery O2 Flow Rate FiO2 04/04/17 09:48 100 T-piece 28 04/04/17 06:00 50 04/04/17 04:00 46 04/04/17 04:00 97.7 46 19 123/60 (81) 100 04/04/17 02:00 83 04/04/17 00:00 68 04/04/17 00:00 98.7 68 21 133/60 (84) 97 04/03/17 22:00 52 04/03/17 20:16 100 T-piece 6.00 28 04/03/17 20:00 98.7 57 19 123/60 (81) 90 04/03/17 20:00 57 I/O 04/03/17 04/03/17 04/03/17 04/04/17 04/04/17 04/04/17 07:00 15:00 23:00 07:00 15:00 23:00 Intake Total 2002 ml 753 ml 1836 ml Output Total 950 ml 800 ml 1120 ml Balance 1052 ml -47 ml 716 ml Intake Oral 0 ml IV Total 1479 ml 100 ml 1000 ml Tube Feeding 523 ml 533 ml 636 ml Tube Irrigant 120 ml 200 ml Output Urine Total 950 ml 800 ml 1120 ml # Bowel Movements 0 0 0 Result Diagram: 04/04/17 1018 04/04/17 1018 Objective Remarks GENERAL: This young black male who is awake, in no respiratory distress. He is unresponsive to any commands.. HEENT: Head normocephalic. Pupils are reactive. Sclerae are clear. Throat has few secretions. Oral mucosa is clear. NECK: Tracheostomy tube in place. No venous distension. No thyromegaly. CHEST: Distant breath sounds with occasional wheezes anteriorly. No crackles on either side. HEART: Heart sounds are regular S1-S2 with no murmur. No S3. ABDOMEN: Soft, scaphoid with PEG tube in place. Bowel sounds are active. EXTREMITIES: Muscle wasting with contractures and diminished peripheral pulses. Reflexes not elicited. The patient does not move his extremities SKIN: Skin was dry and cool. Assessment and Plan Assessment and Plan IMPRESSION 1. Chronic respiratory failure. 2. Status post tracheostomy and PEG tube placement. 3. History of head injury with persistent vegetative state. 4. Basilar pneumonia with sepsis. 5. History of seizures. Plan : 1. Cont Antibiotics as ordered 2. T bar at 28 % FIo2. 3. Nebs Bid , duoneb 4. Cont Trach lavage and suction. 5. Transfer to [facility] . 6. CXR on Friday Lisette Oconnor MD Apr 04, 2017 18:49
[2017-04-04] MEDS: RESP: ALBUTEROL 2.5 MG/IPRATROPIUM 0.5 MG NEB (SCH) NEB (19:34)
[2017-04-04] MEDS: LORazepam 1 MG TAB G-TUBE PRN (23:06)
[2017-04-05] VITALS (16 sets, daily range): BP systolic 131–182; BP diastolic 61–85; PULSE 49–126; RESP 22–32; TEMP 99–101.2; O2SAT 99–100
[2017-04-05] MEDS: SODIUM CHLOR 0.9% 1000 ML INJ 1,000 ML IV SCH ×2 (02:25→12:38)
[2017-04-05] MEDS: CHLORHEXIDINE GLUCONATE 2 % 1 PACK (2 CLOTHS) TOP SCH (04:00)
[2017-04-05] MEDS: CIPROFLOXACIN 0.3% OPTH SOLN 2.5 ML BTL EACH EYE SCH ×5 (05:10→21:32)
[2017-04-05] MEDS: LORazepam 1 MG TAB G-TUBE PRN (05:10)
[2017-04-05] MEDS: HYOSCYAMINE 0.125 MG TAB PO SCH (05:10)
[2017-04-05 05:20] LABS: AUTOMATED NEUTROPHIL # 2.8 TH/MM3 (1.8-7.7); BASOPHIL % 0.8 % (0.0-2.0); EOSINOPHIL # 0.2 TH/MM3 (0-0.4); EOSINOPHIL % 3.2 % (0.0-4.0); HEMATOCRIT 36.5 % (39.0-51.0); HEMO FLAGS DIFF FINAL; LYMPH % 31.8 % (9.0-44.0); LYMPHOCYTE # 1.6 TH/MM3 (1.0-4.8); MEAN CELL VOLUME 94.1 FL (80.0-100.0); MEAN CORPUSCULAR HEMOGLOBIN 31.2 PG (27.0-34.0); MEAN CORPUSCULAR HGB CONC 33.2 % (32.0-36.0); MONO % 9.3 % (0.0-8.0); NEUT % 54.9 % (16.0-70.0); PLATELET COUNT 233 TH/MM3 (150-450); RED BLOOD COUNT 3.88 MIL/MM3 (4.50-5.90); RED CELL DISTRIBUTION WIDTH 13.4 % (11.6-17.2); WHITE BLOOD COUNT 5.1 TH/MM3 (4.0-11.0)
[2017-04-05] MEDS: hydrALAZINE HCL 50 MG TAB PO SCH (05:22)
[2017-04-05] MEDS: PROPRANOLOL HCL 20 MG TAB PEG SCH ×3 (05:22→18:00)
[2017-04-05 05:55] LABS: ALT (GPT) 51 U/L (12-78); ANION GAP 6 MEQ/L (5-15); AST (GOT) 24 U/L (15-37); BLOOD UREA NITROGEN 7 MG/DL (7-18); CHLORIDE 106 MEQ/L (98-107); GLOMERULAR FILTRATION RATE 203 ML/MIN (>89); MAGNESIUM 2.3 MG/DL (1.5-2.5); POTASSIUM 4.3 MEQ/L (3.5-5.1); SODIUM (NA) 137 MEQ/L (136-145)
[2017-04-05 05:58] LABS: ALKALINE PHOSPHATASE 79 U/L (45-117); TOTAL BILIRUBIN ADULT 0.1 MG/DL (0.2-1.0)
[2017-04-05] MEDS: APIXABAN 5 MG TABLET G-TUBE SCH ×2 (08:15→20:11)
[2017-04-05] MEDS: LORATADINE 10 MG TAB G-TUBE SCH (08:15)
[2017-04-05] MEDS: levETIRAcetam 500 MG TAB G-TUBE SCH ×2 (08:15→20:12)
[2017-04-05] MEDS: BACLOFEN 20 MG TAB G-TUBE SCH ×3 (08:15→18:00)
[2017-04-05] MEDS: LINEZOLID 600 MG TAB PO SCH ×2 (08:17→20:12)
[2017-04-05] MEDS: POTASSIUM CHLORIDE 25 MEQ EFFERVESCENT TAB PEG SCH ×2 (08:17→20:11)
[2017-04-05] MEDS: SODIUM CHLORIDE 0.9% FLUSH 10 ML FLUSH IV FLUSH SCH ×2 (08:17→20:11)
[2017-04-05] MEDS ORDERED: LORazepam 2 MG/ML VIAL IV PUSH PRN (08:30)
[2017-04-05] MEDS ORDERED: RESP: ALBUTEROL 2.5 MG/3 ML NEB (PRN) NEB (08:30)
[2017-04-05] MEDS: DOCUSATE SODIUM 50 MG/SENNA 8.6 MG TAB G-TUBE SCH ×2 (08:52→20:11)
[2017-04-05] MEDS: LACTULOSE SYRUP 20 GM/30 ML CUP G-TUBE SCH (08:52)
[2017-04-05] MEDS: RESP: TOBRAMYCIN SULFATE 80 MG/2 ML NEB NEB SCH (08:57)
[2017-04-05] MEDS: POLYETHYLENE GLYCOL 17 GM PKG G-TUBE SCH (09:00)
[2017-04-05] MEDS ORDERED: guaiFENesin SOLUTION 200 MG/10 ML CUP G-TUBE PRN (09:30)
[2017-04-05] MEDS ORDERED: ACETAMINOPHEN 650 MG/20.3 ML UDC G-TUBE PRN (10:15)
--- NOTE | 2017-04-05 10:17 | HHI.PR ---
Subjective Remarks Follow-up respiratory failure. Patient is nonverbal. Discussed with RN. Projectile vomiting with brownish material x 2. Frothy trach secretions on 28%. Still no BM. Mother concerned similar symptoms when he came in. He is a full code Objective Vitals Vital Signs Date Time Temp Pulse Resp B/P (MAP) Pulse Ox O2 Delivery O2 Flow Rate FiO2 04/05/17 08:58 99 T-piece 28 04/05/17 06:00 103 04/05/17 05:23 100 Nasal Cannula 6.00 28 04/05/17 04:00 99.3 49 22 142/67 (92) 100 04/05/17 04:00 100 04/05/17 02:00 100 04/05/17 01:08 100 T-piece 6.00 04/05/17 00:00 99.4 77 24 131/61 (84) 100 04/05/17 00:00 77 04/04/17 22:00 86 04/04/17 20:00 69 04/04/17 20:00 99.5 69 23 119/58 (78) 100 04/04/17 19:38 100 T-piece 28 04/04/17 19:00 79 20 125/56 (79) 100 04/04/17 18:00 61 20 120/56 (77) 100 04/04/17 17:00 82 23 134/67 (89) 100 04/04/17 16:00 99.1 123 24 174/89 (117) 88 04/04/17 15:00 96 21 99 04/04/17 14:00 65 19 110/55 (73) 99 04/04/17 13:00 75 19 121/58 (79) 99 04/04/17 12:00 99.1 80 22 148/69 (95) 98 04/04/17 11:01 72 23 113/58 (76) 99 04/04/17 11:00 51 23 95 I/O 04/04/17 04/04/17 04/04/17 04/05/17 04/05/17 04/05/17 07:00 15:00 23:00 07:00 15:00 23:00 Intake Total 1836 ml 2536 ml Output Total 1120 ml 750 ml 2250 ml Balance 716 ml -750 ml 286 ml IV Total 1000 ml 1000 ml Tube Feeding 636 ml 1376 ml Tube Irrigant 200 ml 160 ml Output Urine Total 1120 ml 750 ml 2250 ml # Bowel Movements 0 0 0 Result Diagram: 04/05/17 0453 04/05/17 0453 Imaging Last Impressions Tube Change 04/02/17 0000 Signed Impressions: Service Date/Time: Sunday, April 02, 2017 10:19 - CONCLUSION: Uncomplicated gastrojejunostomy tube exchange as above. Jm Granica MD Chest X-Ray 03/31/17 0600 Signed Impressions: Service Date/Time: Friday, March 31, 2017 03:39 - CONCLUSION: 1. Tracheostomy in good position. Cardiomegaly with subsegmental basilar dependent airspace disease. Stephan Rich MD Abdomen/Pelvis CT 03/30/17 0000 Signed Impressions: Service Date/Time: Thursday, March 30, 2017 15:46 - CONCLUSION: 1. The gastrojejunostomy tube remains in place. 2. Nonspecific nonobstructive bowel gas pattern which may represent a mild ileus or gastroenteritis. 3. Unremarkable gallbladder. 4. The study is degraded by mild motion and streak artifact. Clayton Mccray MD Abdomen X-Ray 03/30/17 0000 Signed Impressions: Service Date/Time: Thursday, March 30, 2017 04:37 - CONCLUSION: Diffusely dilated loops of bowel. Zachariah Jiménez MD Objective Remarks GENERAL: Well-developed well-nourished on trach collar SKIN: Warm and dry. HEAD: Atraumatic. Normocephalic. EYES: Pupils equal and round. No scleral icterus. No injection or drainage. ENT: No nasal bleeding or discharge. Mucous membranes pink and moist. NECK: Trachea midline. No JVD. Tracheostomy in place CARDIOVASCULAR: Regular rate and rhythm. No murmur RESPIRATORY: No accessory muscle use. Decreased Breath sounds equal bilaterally. GASTROINTESTINAL: Abdomen soft, nondistended. PEG in place. MUSCULOSKELETAL: Extremities without clubbing, cyanosis, or edema. No obvious deformities. NEUROLOGICAL: Contracted withdraws from pain. Procedures EGD G J-tube exchange A/P Problem List: (1) Sepsis ICD Code: A41.9 - Sepsis, unspecified organism Status: Resolved (2) Chronic respiratory failure ICD Code: J96.10 - Chronic respiratory failure, unspecified whether with hypoxia or hypercapnia (3) History of DVT (deep vein thrombosis) ICD Code: Z86.718 - Personal history of other venous thrombosis and embolism Status: Acute (4) Permanent vegetative state ICD Code: R40.3 - Persistent vegetative state Status: Acute (5) Seizure disorder ICD Code: G40.909 - Epilepsy, unspecified, not intractable, without status epilepticus Assessment and Plan Recurrent fevers possibly central fever versus Sepsis. Sputum culture with MRSA. Continue Zyvox started April 02 and tobramycin March 30. Aggressive pulmonary toilet: Chronic Respiratory Failure: S/p Trach. Continue home DuoNeb. Patient with frothy trach secretions continue Levsin and deep suctioning. Obtain chest x- ray and ABG. Alert luminary H/o DVT: on Eliquis, will continue. 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 Chronic. At baseline. Seizure Disorder: No seizure activity noted. Continue Keppra Constipation. Continue Sanam-Colace and add MiraLAX and lactulose. Vomiting likely related to constipation, sepsis and pneumonia. Head CT in February 2017 with no acute changes. Zofran as needed. Hold tube feeding for now. G tube to gravity. Continue IV fluids for now. Recent EGD shows gastritis and esophagitis continue PPI. Obtain abdominal x-ray DVT Prophylaxis: Continue home Eliquis Discharge Planning Keep in ICU for today high likelihood of decompensation Samson Gutierrez MD Apr 05, 2017 10:17
[2017-04-05 10:19] LABS: BLOOD GAS BASE EXCESS 2.3 mmol/L (-2-2); BLOOD GAS CARBOXYHEMOGLOBIN 1.3 % (0-4); BLOOD GAS HCO3 26 mmol/L (22-26); BLOOD GAS O2 HGB SATURATION 88 % (90-100); BLOOD GAS OXYGEN CONTENT 14.8 Vol % (12.0-20.0); BLOOD GAS PCO2 36 mmHg (38-42); BLOOD GAS PO2 58 mmHg (61-120); BLOOD GAS TOTAL HGB 11.9 G/DL (12.0-16.0); CRITICAL VALUE YES; DRAW SITE LT FEMORAL; FIO2 28 %; OXYGEN DEVICE T TUBE; TEMP CORR TO 98.6
[2017-04-05 10:20] LABS: NUMBER OF ARTERIAL PUNCTURES 1; STAT YES
--- NOTE | 2017-04-05 10:42 | RADRPT ---
EXAM DATE/TIME: 04/05/2017 09:58 [facility] COMPARISON: CHEST SINGLE AP, March 31, 2017, 3:39. INDICATIONS : Shortness of breath MEDICAL HISTORY : Anoxic brain injury SURGICAL HISTORY : None. ENCOUNTER: Subsequent ACUITY: 1 week PAIN SCORE: Non-responsive. LOCATION: Bilateral chest FINDINGS: AP semiupright portable view of the chest demonstrate a tracheotomy tube. The heart size appears mini charis enlarged, possibly secondary to portable technique. Pulmonary vasculature is grossly normal in caliber. The lungs are mildly hypoinflated but clear. Osseous structures are unremarkable.. CONCLUSION: No evidence of acute cardio pulmonary disease. The lungs are mildly hypoinflated, no evidence of airs pace disease. Glenys Gallardo MD on April 05, 2017 at 10:40 Board Certified Radiologist. This report was verified electronically.
--- NOTE | 2017-04-05 10:43 | RADRPT ---
EXAM DATE/TIME: 04/05/2017 10:04 [facility] COMPARISON: No previous studies available for comparison. INDICATIONS : Abdominal distension, vomiting MEDICAL HISTORY : Hypertension. Seizures SURGICAL HISTORY : Tracheostomy. Gastrostomy. GJ tube placement ENCOUNTER: Initial ACUITY: 1 day PAIN SCORE: Non-responsive. LOCATION: Bilateral abdomen FINDINGS: Supine view of the abdomen was performed. The abdominal bowel gas pattern is normal. No abnormal ma sses, calcifications, or organomegaly is seen. The osseous structures are unremarkable. CONCLUSION: No acute disease. Glenys Gallardo MD on April 05, 2017 at 10:41 Board Certified Radiologist. This report was verified electronically.
[2017-04-05] MEDS: HYOSCYAMINE 0.125 MG TAB G-TUBE SCH ×3 (12:00→20:12)
--- NOTE | 2017-04-05 13:33 | HHI.IDPN ---
Subjective Subjective Remarks Patient is a 31-year-old male, well-known to me, recently discharged from the hospital March 29, readmitted for recurrent fevers. This is his third admission since February. He was admitted February 21 and at that time he was found to have viridans strep sepsis, as well as Pseudomonas pneumonia. Required ventilatory support at that time, and he improved. He has a chronic trach. At one time he required bronchoscopy during that hospitalization for hemoptysis, and that resolved, and no active bleeding was seen during bronchoscopy. He completed treatment for his bacteremia and pneumonia, and he was discharged back to the [facility] on March 20. He was readmitted for fevers, and again received treatment for Pseudomonas pneumonia. He was stable, and went back to the [place] [facility] on March 29, and came back because of fevers. His temperature was up to 102+, he is tachycardic between 140-150. He had a chest x-ray which was limited but there was no obvious infiltrates. He did not have any central line. He has a condom catheter in place. There is been no real change with his neurological status. There is also been no mention of any diarrhea. His WBC was up to 14. He is not on pressors. He is on T piece with good sats. He has a lot of drooling from his mouth. His neurological status remains the same, and that he is unresponsive, keeps his eyes closed, and very spastic and rigid in his extremities. Infectious disease consultation has been requested to evaluate the patient with recurrent fevers. Notes reviewed Temps ok WBC normal Vomited today Has copious oral secretions Sputum with MRSA Repeat CXR normal AXR normal Antibiotics Zyvox Lines PIV Past Medical History Chronic tracheostomy Recurrent aspiration pneumonia History of upper extremity DVT [place] hypertension Hyperlipidemia Diabetes History of pancreatitis and pseudocyst History of multidrug resistant infections including MRSA, and ESBL positive organism Recent treatment for viridans strep bacteremia related to a midline Past Surgical History Status post trach and revision Status post G-tube placement and revision Previous bronchoscopy Allergies: Coded Allergies: haloperidol (Unverified Adverse Reaction, Severe, Seizures, 03/30/17) Objective . Vital Signs Date Time Temp Pulse Resp B/P (MAP) Pulse Ox O2 Delivery O2 Flow Rate FiO2 04/05/17 10:00 94 04/05/17 08:58 99 T-piece 28 04/05/17 08:00 100 04/05/17 06:00 103 04/05/17 05:23 100 Nasal Cannula 6.00 28 04/05/17 04:00 99.3 49 22 142/67 (92) 100 04/05/17 04:00 100 04/05/17 02:00 100 04/05/17 01:08 100 T-piece 6.00 28 04/05/17 00:00 99.4 77 24 131/61 (84) 100 04/05/17 00:00 77 04/04/17 22:00 86 04/04/17 20:00 69 04/04/17 20:00 99.5 69 23 119/58 (78) 100 04/04/17 19:38 100 T-piece 28 04/04/17 19:00 79 20 125/56 (79) 100 04/04/17 18:00 61 20 120/56 (77) 100 04/04/17 17:00 82 23 134/67 (89) 100 04/04/17 16:00 99.1 123 24 174/89 (117) 88 04/04/17 15:00 96 21 99 04/04/17 14:00 65 19 110/55 (73) 99 . Laboratory Tests Test 04/04/17 10:18 04/05/17 04:53 White Blood Count 4.2 TH/MM3 5.1 TH/MM3 Red Blood Count 3.80 MIL/MM3 3.88 MIL/MM3 Hemoglobin 12.0 GM/DL 12.1 GM/DL Hematocrit 35.3 % 36.5 % Mean Corpuscular Volume 92.9 FL 94.1 FL Mean Corpuscular Hemoglobin 31.6 PG 31.2 PG Mean Corpuscular Hemoglobin Concent 34.0 % 33.2 % Red Cell Distribution Width 12.9 % 13.4 % Platelet Count 175 TH/MM3 233 TH/MM3 Mean Platelet Volume 10.5 FL 10.3 FL Neutrophils (%) (Auto) 51.4 % 54.9 % Lymphocytes (%) (Auto) 31.6 % 31.8 % Monocytes (%) (Auto) 12.8 % 9.3 % Eosinophils (%) (Auto) 3.3 % 3.2 % Basophils (%) (Auto) 0.9 % 0.8 % Neutrophils # (Auto) 2.2 TH/MM3 2.8 TH/MM3 Lymphocytes # (Auto) 1.3 TH/MM3 1.6 TH/MM3 Monocytes # (Auto) 0.5 TH/MM3 0.5 TH/MM3 Eosinophils # (Auto) 0.1 TH/MM3 0.2 TH/MM3 Basophils # (Auto) 0.0 TH/MM3 0.0 TH/MM3 CBC Comment DIFF FINAL DIFF FINAL Differential Comment Hematology Comments Laboratory Tests Test 04/04/17 10:18 04/05/17 04:53 Blood Urea Nitrogen 6 MG/DL 7 MG/DL Creatinine 0.53 MG/DL 0.57 MG/DL Random Glucose 84 MG/DL 96 MG/DL Total Protein 7.0 GM/DL 7.6 GM/DL Albumin 3.3 GM/DL 3.3 GM/DL Calcium Level 8.7 MG/DL 8.6 MG/DL Phosphorus Level 3.1 MG/DL 3.3 MG/DL Magnesium Level 2.2 MG/DL 2.3 MG/DL Alkaline Phosphatase 79 U/L 79 U/L Aspartate Amino Transf (AST/SGOT) 37 U/L 24 U/L Alanine Aminotransferase (ALT/SGPT) 49 U/L 51 U/L Total Bilirubin 0.3 MG/DL 0.1 MG/DL Sodium Level 139 MEQ/L 137 MEQ/L Potassium Level 5.0 MEQ/L 4.3 MEQ/L Chloride Level 107 MEQ/L 106 MEQ/L Carbon Dioxide Level 24.5 MEQ/L 25.0 MEQ/L Anion Gap 8 MEQ/L 6 MEQ/L Estimat Glomerular Filtration Rate 221 ML/MIN 203 ML/MIN Imaging Chest X-Ray 03/31/17 0600 Signed Impressions: Service Date/Time: Friday, March 31, 2017 03:39 - CONCLUSION: 1. Tracheostomy in good position. Cardiomegaly with subsegmental basilar dependent airspace disease. Stephan Rich MD Abdomen/Pelvis CT 03/30/17 0000 Signed Impressions: Service Date/Time: Thursday, March 30, 2017 15:46 - CONCLUSION: 1. The gastrojejunostomy tube remains in place. 2. Nonspecific nonobstructive bowel gas pattern which may represent a mild ileus or gastroenteritis. 3. Unremarkable gallbladder. 4. The study is degraded by mild motion and streak artifact. Clayton Mccray MD Abdomen X-Ray 03/30/17 0000 Signed Impressions: Service Date/Time: Thursday, March 30, 2017 04:37 - CONCLUSION: Diffusely dilated loops of bowel. Zachariah Jiménez MD Physical Exam GENERAL: Opens eyes when stimulated, no interaction, not in respiratory distress, has chronic trach, drooling SKIN: Warm and dry. No generalized rash, no ecchymoses and no evidence of embolic lesions. HEAD: Atraumatic. Normocephalic. No temporal wasting, or tenderness. EYES: [place] conjunctiva. No petechia or hemorrhage. Pupils equal, round and reactive to light. No scleral icterus. No injection or drainage. EARS, NOSE AND THROAT: Nose without bleeding or purulent nasal discharge. Moist oral mucosa, has a lot of oral secretions coming out of his mouth. NECK: Trachea midline. Supple and no meningeal signs CARDIOVASCULAR: Tachycardic, regular rate and rhythm. No murmurs, rubs or gallops heard RESPIRATORY: Clear to auscultation. Breath sounds equal bilaterally. No rales , wheezing or rhonchi. Decreased at the bases. ABDOMEN: Soft, nondistended, bowel sounds present and normoactive. No reaction to palpation, no guarding. No organomegaly. PEG site ok EXTREMITIES: No clubbing, cyanosis, or edema. No joint effusion. Well perfused and warm. NEUROLOGICAL: No interaction. Very spastic UE and LE. Both feet plantar flexed. PSYCHIATRIC: Unable to assess LINE: No evidence of infection : [place] cath in place, urine looks clear Assessment & Plan Remarks IMPRESSION Recurrent fevers, possible sepsis - temps better - CXR now with infiltrates vs atelectasis - no central lines - previous Rx for PSAE PNA - not in distress - ?plugging - ?central fever (usually this is more persistent and not intermittent) Chronic trach Chronic vegetative state due to anoxic injury Vomiting RECOMMENDATION Continue per PEG Zyvox for MRSA PNA - Follow CBC - to finish 04/09 Monitor progress Monitor temps Pulmonary toilet Michelle Reynolds MD Apr 05, 2017 13:33
[2017-04-05] MEDS: hydrALAZINE HCL 50 MG TAB G-TUBE SCH ×2 (14:00→20:12)
--- NOTE | 2017-04-05 15:29 | HHI.PR ---
Subjective Remarks Not responsive. Had copious secretions On a T Collar at 28 %. No fever. Trach site is clear. Objective Vital Signs Date Time Temp Pulse Resp B/P (MAP) Pulse Ox O2 Delivery O2 Flow Rate FiO2 04/05/17 14:00 68 04/05/17 12:00 82 04/05/17 12:00 99.4 82 26 163/81 (108) 100 04/05/17 10:00 94 04/05/17 08:58 99 T-piece 28 04/05/17 08:00 99.7 100 24 182/85 (117) 100 04/05/17 08:00 100 04/05/17 06:00 103 04/05/17 05:23 100 Nasal Cannula 6.00 28 04/05/17 04:00 99.3 49 22 142/67 (92) 100 04/05/17 04:00 100 04/05/17 02:00 100 04/05/17 01:08 100 T-piece 6.00 28 04/05/17 00:00 99.4 77 24 131/61 (84) 100 04/05/17 00:00 77 04/04/17 22:00 86 04/04/17 20:00 69 04/04/17 20:00 99.5 69 23 119/58 (78) 100 04/04/17 19:38 100 T-piece 28 04/04/17 19:00 79 20 125/56 (79) 100 04/04/17 18:00 61 20 120/56 (77) 100 04/04/17 17:00 82 23 134/67 (89) 100 04/04/17 16:00 99.1 123 24 174/89 (117) 88 I/O 04/04/17 04/04/17 04/04/17 04/05/17 04/05/17 04/05/17 07:00 15:00 23:00 07:00 15:00 23:00 Intake Total 1836 ml 2536 ml Output Total 1120 ml 750 ml 2250 ml Balance 716 ml -750 ml 286 ml IV Total 1000 ml 1000 ml Tube Feeding 636 ml 1376 ml Tube Irrigant 200 ml 160 ml Output Urine Total 1120 ml 750 ml 2250 ml # Bowel Movements 0 0 0 Result Diagram: 04/05/17 04504/05/17452 Objective Remarks GENERAL: This young black male who is awake, in no respiratory distress. He is unresponsive to any commands.. HEENT: Head normocephalic. Pupils are reactive. Sclerae are clear. Throat has few secretions. Oral mucosa is clear. NECK: Tracheostomy tube in place. No venous distension. No thyromegaly. CHEST: Distant breath sounds with wheezes anteriorly.basal crackles heard HEART: Heart sounds are regular S1-S2 with no murmur. No S3. ABDOMEN: Soft, scaphoid with PEG tube in place. Bowel sounds are active. EXTREMITIES: Muscle wasting with contractures and diminished peripheral pulses. Reflexes not elicited. The patient does not move his extremities SKIN: Skin was dry and cool. Assessment and Plan Assessment and Plan IMPRESSION 1. Chronic respiratory failure. 2. Status post tracheostomy and PEG tube placement. 3. History of head injury with persistent vegetative state. 4. Basilar pneumonia with sepsis. 5. History of seizures. 6. Ileus Plan : 1. Cont Antibiotics as ordered 2. T bar at 28 % FIo2. 3. Nebs Bid , duoneb 4. Cont Trach lavage and suction. 5. Dulcolax Suppository today 6. Will place Peg tube to suction for 6 hrs. Lisette Oconnor MD Apr 05, 2017 15:29
[2017-04-05] MEDS ORDERED: BISACODYL 10 MG SUPP RECTAL ONE (15:30)
[2017-04-05] MEDS: RESP: ALBUTEROL 2.5 MG/IPRATROPIUM 0.5 MG NEB (SCH) NEB (21:10)
[2017-04-06] VITALS (20 sets, daily range): BP systolic 127–164; BP diastolic 58–89; PULSE 58–131; RESP 17–37; TEMP 99.2–100.7; O2SAT 31–100
[2017-04-06] MEDS: HYOSCYAMINE 0.125 MG TAB G-TUBE SCH ×5 (00:45→21:41)
[2017-04-06] MEDS: PROPRANOLOL HCL 20 MG TAB PEG SCH ×4 (00:45→17:21)
[2017-04-06] MEDS: CIPROFLOXACIN 0.3% OPTH SOLN 2.5 ML BTL EACH EYE SCH ×2 (00:45→06:25)
[2017-04-06] MEDS: CHLORHEXIDINE GLUCONATE 2 % 1 PACK (2 CLOTHS) TOP SCH (04:00)
[2017-04-06] MEDS: NS + KCL 20 MEQ INJ 1,000 ML IV SCH ×2 (05:15→11:31)
[2017-04-06 06:14] LABS: AUTOMATED NEUTROPHIL # 4.3 TH/MM3 (1.8-7.7); BASOPHIL # 0.1 TH/MM3 (0-0.2); EOSINOPHIL # 0.2 TH/MM3 (0-0.4); EOSINOPHIL % 2.4 % (0.0-4.0); HEMATOCRIT 37.5 % (39.0-51.0); HEMO FLAGS DIFF FINAL; LYMPHOCYTE # 1.6 TH/MM3 (1.0-4.8); MEAN CELL VOLUME 94.8 FL (80.0-100.0); MEAN CORPUSCULAR HEMOGLOBIN 31.4 PG (27.0-34.0); MEAN CORPUSCULAR HGB CONC 33.1 % (32.0-36.0); MONO % 12.1 % (0.0-8.0); NEUT % 61.5 % (16.0-70.0); PLATELET COUNT 250 TH/MM3 (150-450); RED BLOOD COUNT 3.95 MIL/MM3 (4.50-5.90); RED CELL DISTRIBUTION WIDTH 13.2 % (11.6-17.2); WHITE BLOOD COUNT 7.1 TH/MM3 (4.0-11.0)
[2017-04-06 06:24] LABS: BICARBONATE 28.5 MEQ/L (21.0-32.0); MAGNESIUM 2.3 MG/DL (1.5-2.5); POTASSIUM 3.7 MEQ/L (3.5-5.1)
[2017-04-06] MEDS: hydrALAZINE HCL 50 MG TAB G-TUBE SCH ×3 (06:26→21:41)
[2017-04-06] MEDS: SODIUM CHLOR 0.9% 1000 ML INJ 1,000 ML IV SCH (06:28)
[2017-04-06] MEDS: RESP: ALBUTEROL 2.5 MG/IPRATROPIUM 0.5 MG NEB (SCH) NEB ×2 (08:28→21:32)
[2017-04-06] MEDS: POTASSIUM CHLORIDE 25 MEQ EFFERVESCENT TAB PEG SCH ×2 (09:00→21:42)
[2017-04-06] MEDS: SODIUM CHLORIDE 0.9% FLUSH 10 ML FLUSH IV FLUSH SCH ×2 (09:00→21:42)
--- NOTE | 2017-04-06 10:12 | HHI.PR ---
Subjective Remarks F/U Vomiting. Persistent vomiting with brownish material. Got called by RN earlier ordered to hold TF and alert GI. BM x 2. Seen with parents, think he might be anxious or in pain with clenched teeth and curled toes. Also has superficial noninfected wound left lateral knee dw RN Objective Vitals Vital Signs Date Time Temp Pulse Resp B/P (MAP) Pulse Ox O2 Delivery O2 Flow Rate FiO2 04/06/17 08:30 95 T-piece 40 04/06/17 06:00 101 04/06/17 04:00 65 04/06/17 04:00 100.2 65 22 127/58 (81) 95 04/06/17 02:00 73 04/06/17 00:00 83 04/06/17 00:00 99.2 83 17 144/63 (90) 100 04/06/17 00:00 95 T-piece 35 04/05/17 22:00 79 04/05/17 21:26 100 T-piece 6.00 35 04/05/17 20:00 101.2 87 25 142/64 (90) 100 04/05/17 18:00 126 04/05/17 16:00 88 04/05/17 16:00 99.0 88 32 159/79 (105) 100 04/05/17 14:00 68 04/05/17 12:00 82 04/05/17 12:00 99.4 82 26 163/81 (108) 100 I/O 04/05/17 04/05/17 04/05/17 04/06/17 04/06/17 04/06/17 07:00 15:00 23:00 07:00 15:00 23:00 Intake Total 2536 ml 400 ml 200 ml Output Total 2250 ml 700 ml 700 ml Balance 286 ml -300 ml -500 ml IV Total 1000 ml Tube Feeding 1376 ml 0 ml 200 ml Tube Irrigant 160 ml 400 ml Output Urine Total 2250 ml 700 ml 300 ml Gastric Drainage Total 400 ml # Bowel Movements 0 2 1 Result Diagram: 04/06/17 0423 04/06/17 0423 Imaging Last Impressions Chest X-Ray 04/05/17 0000 Signed Impressions: Service Date/Time: Wednesday, April 05, 2017 09:58 - CONCLUSION: No evidence of acute cardio pulmonary disease. The lungs are mildly hypoinflated, no evidence of airspace disease. Glenys M. Sami, MD Abdomen X-Ray 04/05/17 0000 Signed Impressions: Service Date/Time: Wednesday, April 05, 2017 10:04 - CONCLUSION: No acute disease. Glenys Gallardo MD Tube Change 04/02/17 0000 Signed Impressions: Service Date/Time: Sunday, April 02, 2017 10:19 - CONCLUSION: Uncomplicated gastrojejunostomy tube exchange as above. Jm Garnica MD Abdomen/Pelvis CT 03/30/17 0000 Signed Impressions: Service Date/Time: Thursday, March 30, 2017 15:46 - CONCLUSION: 1. The gastrojejunostomy tube remains in place. 2. Nonspecific nonobstructive bowel gas pattern which may represent a mild ileus or gastroenteritis. 3. Unremarkable gallbladder. 4. The study is degraded by mild motion and streak artifact. Clayton Mccray MD Objective Remarks GENERAL: Well-developed well-nourished on trach collar SKIN: Warm and dry. HEAD: Atraumatic. Normocephalic. EYES: Pupils equal and round. No scleral icterus. No injection or drainage. ENT: No nasal bleeding or discharge. Mucous membranes pink and moist. Clenched teeth NECK: Trachea midline. No JVD. Tracheostomy in place CARDIOVASCULAR: Regular rate and rhythm. No murmur RESPIRATORY: No accessory muscle use. Decreased Breath sounds equal bilaterally. GASTROINTESTINAL: Abdomen soft, nondistended. PEG in place. MUSCULOSKELETAL: Extremities without clubbing, cyanosis, or edema. No obvious deformities. Toes curled NEUROLOGICAL: Contracted withdraws from pain. Procedures EGD G J-tube exchange A/P Problem List: (1) Sepsis ICD Code: A41.9 - Sepsis, unspecified organism Status: Resolved (2) Chronic respiratory failure ICD Code: J96.10 - Chronic respiratory failure, unspecified whether with hypoxia or hypercapnia (3) History of DVT (deep vein thrombosis) ICD Code: Z86.718 - Personal history of other venous thrombosis and embolism Status: Acute (4) Permanent vegetative state ICD Code: R40.3 - Persistent vegetative state Status: Acute (5) Seizure disorder ICD Code: G40.909 - Epilepsy, unspecified, not intractable, without status epilepticus Assessment and Plan Recurrent fevers possibly central fever versus Sepsis. Sputum culture with MRSA. Continue Zyvox till April 09 status post tobramycin nebulization. Aggressive pulmonary toilet: Chronic Respiratory Failure: S/p Trach. Continue home DuoNeb. Patient with significant frothy trach secretions increase Levsin to maximum dose and continue deep suctioning. H/o DVT: on Eliquis, will continue. 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 Dw parents, think he might be anxious or in pain with clenched teeth and curled toes. Trial MSO4 and Ativan then schedule if effective Seizure Disorder: No seizure activity noted. Continue Keppra Constipation. Stooling Continue Sanam-Colace, MiraLAX and lactulose. Persistent Vomiting likely related to constipation, sepsis and pneumonia. Head CT in February 2017 with no acute changes. Zofran as needed. Hold tube feeding via JT for now, patient has no residual. G tube for meds only. Continue IV fluids for now. Recent EGD shows gastritis and esophagitis continue PPI. Abdominal x-ray unremarkable. Reconsulted GI. Monitor for aspiration though has cuffed trach and TF via JT. CXR 04/05 unremarkable DVT Prophylaxis: Continue home Eliquis Discharge Planning If stable transfer out of ICU tomorrow to telemetry near nurses station Samson Gutierrez MD Apr 06, 2017 10:12
[2017-04-06] MEDS: LORazepam 1 MG TAB G-TUBE PRN (11:30)
[2017-04-06] MEDS: LACTULOSE SYRUP 20 GM/30 ML CUP G-TUBE SCH (11:30)
[2017-04-06] MEDS: BACLOFEN 20 MG TAB G-TUBE SCH ×3 (11:30→17:21)
[2017-04-06] MEDS: DOCUSATE SODIUM 50 MG/SENNA 8.6 MG TAB G-TUBE SCH ×2 (11:30→21:41)
[2017-04-06] MEDS: POLYETHYLENE GLYCOL 17 GM PKG G-TUBE SCH (11:30)
[2017-04-06] MEDS: levETIRAcetam 500 MG TAB G-TUBE SCH ×2 (11:30→21:42)
[2017-04-06] MEDS: LINEZOLID 600 MG TAB PO SCH ×2 (11:31→21:41)
[2017-04-06] MEDS: APIXABAN 5 MG TABLET G-TUBE SCH ×2 (11:31→21:42)
[2017-04-06] MEDS: LORATADINE 10 MG TAB G-TUBE SCH (11:31)
[2017-04-06] MEDS: MORPHINE SULFATE 4 MG/ML INJ IV PUSH PRN ×2 (11:32→17:21)
[2017-04-06] MEDS: MUPIROCIN 2% CREAM 15 GM TOPICAL SCH ×2 (11:39→21:41)
--- NOTE | 2017-04-06 15:36 | HHI.PR ---
Subjective Remarks Not responsive. Had copious secretions from Oral cavity.Tube feeds on hold. On a T Collar at 28 %. No fever. Trach site is clear. Objective Vital Signs Date Time Temp Pulse Resp B/P (MAP) Pulse Ox O2 Delivery O2 Flow Rate FiO2 04/06/17 15:00 131 04/06/17 14:00 120 04/06/17 13:00 116 04/06/17 12:00 97 29 162/89 (113) 93 04/06/17 12:00 97 04/06/17 11:00 96 04/06/17 11:00 96 19 164/77 (106) 92 04/06/17 10:01 108 32 156/68 (97) 93 04/06/17 10:01 108 04/06/17 10:00 111 37 92 04/06/17 10:00 111 04/06/17 09:00 110 36 154/66 (95) 92 04/06/17 09:00 110 04/06/17 08:30 95 T-piece 40 04/06/17 08:00 80 04/06/17 08:00 80 24 136/64 (88) 97 04/06/17 06:00 101 04/06/17 04:00 65 04/06/17 04:00 100.2 65 22 127/58 (81) 95 04/06/17 02:00 73 04/06/17 00:00 83 04/06/17 00:00 99.2 83 17 144/63 (90) 100 04/06/17 00:00 95 T-piece 35 04/05/17 22:00 79 04/05/17 21:26 100 T-piece 6.00 35 04/05/17 20:00 101.2 87 25 142/64 (90) 100 04/05/17 18:00 126 04/05/17 16:00 88 04/05/17 16:00 99.0 88 32 159/79 (105) 100 I/O 04/05/17 04/05/17 04/05/17 04/06/17 04/06/17 04/06/17 07:00 15:00 23:00 07:00 15:00 23:00 Intake Total 2536 ml 400 ml 200 ml 210 ml Output Total 2250 ml 700 ml 700 ml Balance 286 ml -300 ml -500 ml 210 ml IV Total 1000 ml 210 ml Tube Feeding 1376 ml 0 ml 200 ml Tube Irrigant 160 ml 400 ml Output Urine Total 2250 ml 700 ml 300 ml Gastric Drainage Total 400 ml # Bowel Movements 0 2 1 Result Diagram: 04/06/1742204/06/17422 Objective Remarks GENERAL: This young black male who is awake, in no respiratory distress. He is unresponsive to any commands.. HEENT: Head normocephalic. Pupils are reactive. Sclerae are clear. Throat has few secretions. Oral secretions ++ NECK: Tracheostomy tube in place. No venous distension. No thyromegaly. CHEST: Distant breath sounds with wheezes anteriorly. Occ basal crackles heard HEART: Heart sounds are regular S1-S2 with no murmur. No S3. ABDOMEN: Soft, scaphoid with PEG tube in place. Bowel sounds are active. EXTREMITIES: Muscle wasting with contractures and diminished peripheral pulses. Reflexes not elicited. The patient does not move his extremities SKIN: Skin was dry and cool. Assessment and Plan Assessment and Plan IMPRESSION 1. Chronic respiratory failure. 2. Status post tracheostomy and PEG tube placement. 3. History of head injury with persistent vegetative state. 4. Basilar pneumonia with sepsis. 5. History of seizures. 6. Ileus Plan : 1. Cont Antibiotics as ordered 2. T bar at 28 % FIo2. 3. Nebs Bid , duoneb 4. Cont Trach lavage and suction. 5. Chest Xray in am 6. Will place Peg tube to suction 7. IV Fluid for hydration Lisette Oconnor MD Apr 06, 2017 15:36
--- NOTE | 2017-04-06 15:55 | HHI.GIFU ---
Subjective Remarks Reconsulted for vomiting/reflux. Pt was made NPO because of vomiting. His G/J tube is clamped. The nurse reports he had 2 large bowel movements yesterday. His abdomen is soft and nondistended. (Vida Kaba) Objective Vitals I&O Vital Signs Date Time Temp Pulse Resp B/P (MAP) Pulse Ox O2 Delivery O2 Flow Rate FiO2 04/06/17 15:00 131 04/06/17 14:00 120 04/06/17 13:00 116 04/06/17 12:00 97 29 162/89 (113) 93 04/06/17 12:00 97 04/06/17 11:00 96 04/06/17 11:00 96 19 164/77 (106) 92 04/06/17 10:01 108 32 156/68 (97) 93 04/06/17 10:01 108 04/06/17 10:00 111 37 92 04/06/17 10:00 111 04/06/17 09:00 110 36 154/66 (95) 92 04/06/17 09:00 110 04/06/17 08:30 95 T-piece 40 04/06/17 08:00 80 04/06/17 08:00 80 24 136/64 (88) 97 04/06/17 06:00 101 04/06/17 04:00 65 04/06/17 04:00 100.2 65 22 127/58 (81) 95 04/06/17 02:00 73 04/06/17 00:00 83 04/06/17 00:00 99.2 83 17 144/63 (90) 100 04/06/17 00:00 95 T-piece 35 04/05/17 22:00 79 04/05/17 21:26 100 T-piece 6.00 35 04/05/17 20:00 101.2 87 25 142/64 (90) 100 04/05/17 18:00 126 04/05/17 16:00 88 04/05/17 16:00 99.0 88 32 159/79 (105) 100 I/O 04/05/17 04/05/17 04/05/17 04/06/17 04/06/17 04/06/17 07:00 15:00 23:00 07:00 15:00 23:00 Intake Total 2536 ml 400 ml 200 ml 210 ml Output Total 2250 ml 700 ml 700 ml Balance 286 ml -300 ml -500 ml 210 ml IV Total 1000 ml 210 ml Tube Feeding 1376 ml 0 ml 200 ml Tube Irrigant 160 ml 400 ml Output Urine Total 2250 ml 700 ml 300 ml Gastric Drainage Total 400 ml # Bowel Movements 0 2 1 Laboratory Laboratory Tests Test 04/06/17 04:23 White Blood Count 7.1 Red Blood Count 3.95 Hemoglobin 12.4 Hematocrit 37.5 Mean Corpuscular Volume 94.8 Mean Corpuscular Hemoglobin 31.4 Mean Corpuscular Hemoglobin Concent 33.1 Red Cell Distribution Width 13.2 Platelet Count 250 Mean Platelet Volume 10.6 Neutrophils (%) (Auto) 61.5 Lymphocytes (%) (Auto) 23.0 Monocytes (%) (Auto) 12.1 Eosinophils (%) (Auto) 2.4 Basophils (%) (Auto) 1.0 Neutrophils # (Auto) 4.3 Lymphocytes # (Auto) 1.6 Monocytes # (Auto) 0.9 Eosinophils # (Auto) 0.2 Basophils # (Auto) 0.1 CBC Comment DIFF FINAL Differential Comment Blood Urea Nitrogen 8 Creatinine 0.66 Random Glucose 104 Calcium Level 9.0 Magnesium Level 2.3 Sodium Level 140 Potassium Level 3.7 Chloride Level 104 Carbon Dioxide Level 28.5 Anion Gap 8 Estimat Glomerular Filtration Rate 172 Date/Time Source Procedure Growth Status 03/30/17 04:00 Blood Peripheral Aerobic Blood Culture - Final NO GROWTH IN 5 DAYS Complete 03/30/17 04:00 Blood Peripheral Anaerobic Blood Culture - Final NO GROWTH IN 5 DAYS Complete 03/30/17 10:00 Gastric Gastric Occult Blood - Final GASTROCCULT POSITIVE Complete 04/01/17 01:30 Sputum Endotracheal Gram Stain - Final Complete 04/01/17 01:30 Sputum Culture - Final S. Aureus Mrsa Complete Imaging Last Impressions Chest X-Ray 04/05/17 0000 Signed Impressions: Service Date/Time: Wednesday, April 05, 2017 09:58 - CONCLUSION: No evidence of acute cardio pulmonary disease. The lungs are mildly hypoinflated, no evidence of airspace disease. Glenys Gallardo MD Abdomen X-Ray 04/05/17 0000 Signed Impressions: Service Date/Time: Wednesday, April 05, 2017 10:04 - CONCLUSION: No acute disease. Glenys Gallardo MD Tube Change 04/02/17 0000 Signed Impressions: Service Date/Time: Sunday, April 02, 2017 10:19 - CONCLUSION: Uncomplicated gastrojejunostomy tube exchange as above. Jm Garnica MD Abdomen/Pelvis CT 03/30/17 0000 Signed Impressions: Service Date/Time: Thursday, March 30, 2017 15:46 - CONCLUSION: 1. The gastrojejunostomy tube remains in place. 2. Nonspecific nonobstructive bowel gas pattern which may represent a mild ileus or gastroenteritis. 3. Unremarkable gallbladder. 4. The study is degraded by mild motion and streak artifact. Clayton Mccray MD Physical Exam HEENT: Normocephalic; atraumatic; no jaundice. Large amount of clear oral secretions. CHEST: Tracheostomy, t-bar, course breath sounds CARDIAC: RRR ABDOMEN: Soft, nondistended, nontender; no hepatosplenomegaly; bowel sounds are present in all four quadrants. G/J tube clamped EXTREMITIES: Mild gen. edema. Contracted SKIN: Normal; no rash; no jaundice. 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 Does not follow commands (Vida Kaba) Assessment and Plan Plan ASSESSMENT: - Vomiting. Nurse reports that he vomited TF overnight and the TF was turned off. ? if this was going to the G tube or the J tube. KUB (04/05/17)----> No acute disease. Nurse reports patient had 2 lg bms. Abdomen is soft, nontended. Levsin started. Add PPI. G tube to LIWS. Will resume TF in am via J tube. - Upper GI bleed. Dark red liquid was suctioned from orotracheal, Gastroccult positive. S/P EGD (03/31/17)---> Esophagitis, gastritis. Pathology minimal chronic gastritis, negative for helicobacter pylori, acute esophagitis with features of ulceration. [place] methenamine silver stain is negative for fungal organisms. No active bleeding. HH 12.4/37.5. - Dysphagia. Has G/J tube, although nurse reports that it is worn and they have intermittent difficulty flushing this. S/P exchange G/J tube by (04/02/17). - Sepsis, recurrent, unclear etiology. Possible aspiration. CXR (03/31/17)---> tracheostomy in good position, cardiomegaly with subsegmental basilar dependent airspace disease. CT scan abdomen and pelvis (03/30/17)---> the gastrojejunostomy tube remains in place, nonspecific nonobstructive bowel gas pattern which may represent a mild ileus or gastroenteritis, unremarkable gallbladder, the study is degraded by mild motion and streak artifact. No current bleeding. Blood cultures no growth one day. ID consulted. WBC 7.1. Afebrile. - Respiratory Failure, chronic. Trach. Per pulmonary. - Persistent Vegetative State, Sz D/O, secondary to anoxic brain injury. - History of DVT. - Seizure disorder. PLAN: - NPO - G tube to LIWS - Add Prevacid ODT - Cont. Levsin - Monitor HH - Transfuse as necessary - Notify GI of active bleeding - Supportive care - Will restart TF via J tube in am if doing well - Further recommendations to follow based on results of above - Pt seen and examined by Dr. Ashraf and myself and this note is written on his behalf (Vida Kaba) Plan Patient was seen and examined, had a discussion with the father and the mother about the possible outcome, continue current care, will hold to feeding formula (Jameson Ashraf MD) Vida Kaba Apr 06, 2017 15:55 Jameson Ashraf MD Apr 06, 2017 18:11
[2017-04-06] MEDS: LANSOPRAZOLE SOLUTAB 30 MG TAB NG SCH (17:35)
[2017-04-07] VITALS (21 sets, daily range): BP systolic 107–156; BP diastolic 51–86; PULSE 48–110; RESP 10–32; TEMP 97.6–99.9; O2SAT 32–100
[2017-04-07] MEDS: PROPRANOLOL HCL 20 MG TAB PEG SCH ×4 (00:49→17:17)
[2017-04-07] MEDS: HYOSCYAMINE 0.125 MG TAB G-TUBE SCH ×6 (00:49→20:43)
[2017-04-07] MEDS: CHLORHEXIDINE GLUCONATE 2 % 1 PACK (2 CLOTHS) TOP SCH (04:00)
[2017-04-07] MEDS: NS + KCL 20 MEQ INJ 1,000 ML IV SCH ×2 (05:15→17:17)
[2017-04-07] MEDS: hydrALAZINE HCL 50 MG TAB G-TUBE SCH ×3 (05:21→20:42)
--- NOTE | 2017-04-07 05:59 | RADRPT ---
EXAM DATE/TIME: 04/07/2017 04:18 [place] COMPARISON: 04/05/2017. INDICATIONS : Shortness of breath, possible pulmonary disease. MEDICAL HISTORY : Anoxic brain injury SURGICAL HISTORY : Trachestomy J tube ENCOUNTER: Subsequent ACUITY: 1 week PAIN SCORE: Non-responsive. LOCATION: Bilateral chest FINDINGS: Mild patchy infiltrate again seen on the left, slightly improved. Right lung appears clear. No large effusion. No pneumothorax. Heart size stable, within normal limits. Tracheostomy tube again noted. CONCLUSION: Improving patchy consolidation on the left. Santo Fisher MD on April 07, 2017 at 5:56 Board Certified Radiologist. This report was verified electronically.
[2017-04-07] MEDS: LINEZOLID 600 MG TAB PO SCH ×2 (09:00→20:42)
[2017-04-07] MEDS: BACLOFEN 20 MG TAB G-TUBE SCH ×3 (09:00→17:17)
[2017-04-07] MEDS: LANSOPRAZOLE SOLUTAB 30 MG TAB NG SCH (09:00)
[2017-04-07] MEDS: APIXABAN 5 MG TABLET G-TUBE SCH ×2 (09:00→20:43)
[2017-04-07] MEDS: POLYETHYLENE GLYCOL 17 GM PKG G-TUBE SCH (09:00)
[2017-04-07] MEDS: LACTULOSE SYRUP 20 GM/30 ML CUP G-TUBE SCH (09:00)
[2017-04-07] MEDS: SODIUM CHLORIDE 0.9% FLUSH 10 ML FLUSH IV FLUSH SCH ×2 (09:00→21:50)
[2017-04-07] MEDS: LORATADINE 10 MG TAB G-TUBE SCH (09:00)
[2017-04-07] MEDS: levETIRAcetam 500 MG TAB G-TUBE SCH ×2 (09:00→20:43)
[2017-04-07] MEDS: DOCUSATE SODIUM 50 MG/SENNA 8.6 MG TAB G-TUBE SCH ×2 (09:00→20:42)
[2017-04-07] MEDS: POTASSIUM CHLORIDE 25 MEQ EFFERVESCENT TAB PEG SCH ×2 (09:00→20:42)
[2017-04-07] MEDS: MUPIROCIN 2% CREAM 15 GM TOPICAL SCH ×2 (09:00→21:49)
--- NOTE | 2017-04-07 09:02 | HHI.PR ---
Subjective Remarks In bed, with some secretions , being suctioned. Noted bradycardic HR in 40ss. Had spikes of feevrs , continue zyvoxx per iD. Monitor fevers Objective Vitals Vital Signs Date Time Temp Pulse Resp B/P (MAP) Pulse Ox O2 Delivery O2 Flow Rate FiO2 04/07/17 06:00 85 04/07/17 04:45 93 T-piece 40 04/07/17 04:00 99.5 80 17 136/63 (87) 100 04/07/17 04:00 80 04/07/17 02:00 80 04/07/17 00:00 77 04/07/17 00:00 99.9 77 16 144/63 (90) 99 04/06/17 22:00 101 04/06/17 21:32 92 T-piece 40 04/06/17 20:00 67 04/06/17 20:00 100.7 67 20 149/65 (93) 97 04/06/17 18:00 58 21 158/69 (98) 93 04/06/17 18:00 58 04/06/17 17:00 82 21 154/75 (101) 31 04/06/17 16:00 101 04/06/17 16:00 101 28 138/68 (91) 95 04/06/17 15:00 131 04/06/17 14:00 120 04/06/17 13:00 116 04/06/17 12:00 97 29 162/89 (113) 93 04/06/17 12:00 97 04/06/17 11:00 96 04/06/17 11:00 96 19 164/77 (106) 92 04/06/17 10:01 108 32 156/68 (97) 93 04/06/17 10:01 108 04/06/17 10:00 111 37 92 04/06/17 10:00 111 I/O 04/06/17 04/06/17 04/06/17 04/07/17 04/07/17 04/07/17 07:00 15:00 23:00 07:00 15:00 23:00 Intake Total 200 ml 210 ml 1000 ml Output Total 700 ml 850 ml 350 ml Balance -500 ml 210 ml -850 ml 650 ml IV Total 0 ml 210 ml 1000 ml Tube Feeding 200 ml Output Urine Total 300 ml 250 ml 350 ml Gastric Drainage Total 400 ml 600 ml # Voids 1 # Bowel Movements 1 1 Result Diagram: 04/06/173 04/06/17422 Imaging Last Impressions Chest X-Ray 04/05/17 0000 Signed Impressions: Service Date/Time: Wednesday, April 05, 2017 09:58 - CONCLUSION: No evidence of acute cardio pulmonary disease. The lungs are mildly hypoinflated, no evidence of airspace disease. Glenys Gallardo MD Abdomen X-Ray 04/05/17 0000 Signed Impressions: Service Date/Time: Wednesday, April 05, 2017 10:04 - CONCLUSION: No acute disease. Glenys Gallardo MD Tube Change 04/02/17 0000 Signed Impressions: Service Date/Time: Sunday, April 02, 2017 10:19 - CONCLUSION: Uncomplicated gastrojejunostomy tube exchange as above. Jm Garnica MD Abdomen/Pelvis CT 03/30/17 0000 Signed Impressions: Service Date/Time: Thursday, March 30, 2017 15:46 - CONCLUSION: 1. The gastrojejunostomy tube remains in place. 2. Nonspecific nonobstructive bowel gas pattern which may represent a mild ileus or gastroenteritis. 3. Unremarkable gallbladder. 4. The study is degraded by mild motion and streak artifact. Clayton Mccray MD Objective Remarks GENERAL: Well-developed well-nourished on trach collar ENT: No nasal bleeding or discharge. Mucous membranes pink and moist. Clenched teeth NECK: Trachea midline. No JVD. Tracheostomy in place CARDIOVASCULAR: Bradycardic. Regular rate and rhythm. No murmur RESPIRATORY: No accessory muscle use. Decreased Breath sounds equal bilaterally. GASTROINTESTINAL: Abdomen soft, nondistended. PEG in place. MUSCULOSKELETAL: Extremities without clubbing, cyanosis, or edema. No obvious deformities. Toes curled NEUROLOGICAL: Contracted withdraws from pain. Procedures EGD G J-tube exchange A/P Problem List: (1) Sepsis ICD Code: A41.9 - Sepsis, unspecified organism Status: Resolved (2) Chronic respiratory failure ICD Code: J96.10 - Chronic respiratory failure, unspecified whether with hypoxia or hypercapnia (3) History of DVT (deep vein thrombosis) ICD Code: Z86.718 - Personal history of other venous thrombosis and embolism Status: Acute (4) Permanent vegetative state ICD Code: R40.3 - Persistent vegetative state Status: Acute (5) Seizure disorder ICD Code: G40.909 - Epilepsy, unspecified, not intractable, without status epilepticus Assessment and Plan (1) Sepsis ICD Code: A41.9 - Sepsis, unspecified organism Status: Resolved (2) Chronic respiratory failure ICD Code: J96.10 - Chronic respiratory failure, unspecified whether with hypoxia or hypercapnia (3) History of DVT (deep vein thrombosis) ICD Code: Z86.718 - Personal history of other venous thrombosis and embolism Status: Acute (4) Permanent vegetative state ICD Code: R40.3 - Persistent vegetative state Status: Acute (5) Seizure disorder (6) Bradycardia ICD Code: G40.909 - Epilepsy, unspecified, not intractable, without status epilepticus (6) Bradycardia Assessment and Plan Recurrent fevers possibly central fever versus Sepsis. Sputum culture with MRSA. Continue Zyvox till April 09 status post tobramycin nebulization. Aggressive pulmonary toilet: Chronic Respiratory Failure: S/p Trach. Continue home DuoNeb. Patient with significant frothy trach secretions increase Levsin to maximum dose and continue deep suctioning. H/o DVT: on Eliquis, will continue. 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 Dw parents, think he might be anxious or in pain with clenched teeth and curled toes. Trial MSO4 and Ativan then schedule if effective Seizure Disorder: No seizure activity noted. Continue Keppra Constipation. Stooling Continue Sanam-Colace, MiraLAX and lactulose. Persistent Vomiting likely related to constipation, sepsis and pneumonia. Head CT in February 2017 with no acute changes. Zofran as needed. Hold tube feeding via JT for now, patient has no residual. G tube for meds only. Continue IV fluids for now. Recent EGD shows gastritis and esophagitis continue PPI. Abdominal x-ray unremarkable. Reconsulted GI. Monitor for aspiration though has cuffed trach and TF via JT. CXR 04/05 unremarkable DVT Prophylaxis: Continue home Eliquis Discharge Planning If stable transfer out of ICU tomorrow to telemetry near nurses station Ana Dexter MD Apr 07, 2017 09:02
[2017-04-07 09:17] LABS: BICARBONATE 23.2 MEQ/L (21.0-32.0); MAGNESIUM 2.3 MG/DL (1.5-2.5); POTASSIUM 4.9 MEQ/L (3.5-5.1)
--- NOTE | 2017-04-07 09:26 | HHI.IDPN ---
Subjective Subjective Remarks Patient is a 31-year-old male, well-known to me, recently discharged from the hospital March 29, readmitted for recurrent fevers. This is his third admission since February. He was admitted February 21 and at that time he was found to have viridans strep sepsis, as well as Pseudomonas pneumonia. Required ventilatory support at that time, and he improved. He has a chronic trach. At one time he required bronchoscopy during that hospitalization for hemoptysis, and that resolved, and no active bleeding was seen during bronchoscopy. He completed treatment for his bacteremia and pneumonia, and he was discharged back to the long-term on March 20. He was readmitted for fevers, and again received treatment for Pseudomonas pneumonia. He was stable, and went back to the long-term on March 29, and came back because of fevers. His temperature was up to 102+, he is tachycardic between 140-150. He had a chest x-ray which was limited but there was no obvious infiltrates. He did not have any central line. He has a condom catheter in place. There is been no real change with his neurological status. There is also been no mention of any diarrhea. His WBC was up to 14. He is not on pressors. He is on T piece with good sats. He has a lot of drooling from his mouth. His neurological status remains the same, and that he is unresponsive, keeps his eyes closed, and very spastic and rigid in his extremities. Infectious disease consultation has been requested to evaluate the patient with recurrent fevers. Notes reviewed Increased temps again this weekend Having problems with vomiting - G/J to suction, TF on hold BP ok CXR today better AXR ok LFT ok Antibiotics Zyvox Lines PIV Past Medical History Chronic tracheostomy Recurrent aspiration pneumonia History of upper extremity DVT [place] hypertension Hyperlipidemia Diabetes History of pancreatitis and pseudocyst History of multidrug resistant infections including MRSA, and ESBL positive organism Recent treatment for viridans strep bacteremia related to a midline Past Surgical History Status post trach and revision Status post G-tube placement and revision Previous bronchoscopy Allergies: Coded Allergies: haloperidol (Unverified Adverse Reaction, Severe, Seizures, 03/30/17) Objective . Vital Signs Date Time Temp Pulse Resp B/P (MAP) Pulse Ox O2 Delivery O2 Flow Rate FiO2 04/07/17 06:00 85 04/07/17 04:45 93 T-piece 40 04/07/17 04:00 99.5 80 17 136/63 (87) 100 04/07/17 04:00 80 04/07/17 02:00 80 04/07/17 00:00 77 04/07/17 00:00 99.9 77 16 144/63 (90) 99 04/06/17 22:00 101 04/06/17 21:32 92 T-piece 40 04/06/17 20:00 67 04/06/17 20:00 100.7 67 20 149/65 (93) 97 04/06/17 18:00 58 21 158/69 (98) 93 04/06/17 18:00 58 04/06/17 17:00 82 21 154/75 (101) 31 04/06/17 16:00 101 04/06/17 16:00 101 28 138/68 (91) 95 04/06/17 15:00 131 04/06/17 14:00 120 04/06/17 13:00 116 04/06/17 12:00 97 29 162/89 (113) 93 04/06/17 12:00 97 04/06/17 11:00 96 04/06/17 11:00 96 19 164/77 (106) 92 04/06/17 10:01 108 32 156/68 (97) 93 04/06/17 10:01 108 04/06/17 10:00 111 37 92 04/06/17 10:00 111 . Laboratory Tests Test 04/06/17 04:23 White Blood Count 7.1 TH/MM3 Red Blood Count 3.95 MIL/MM3 Hemoglobin 12.4 GM/DL Hematocrit 37.5 % Mean Corpuscular Volume 94.8 FL Mean Corpuscular Hemoglobin 31.4 PG Mean Corpuscular Hemoglobin Concent 33.1 % Red Cell Distribution Width 13.2 % Platelet Count 250 TH/MM3 Mean Platelet Volume 10.6 FL Neutrophils (%) (Auto) 61.5 % Lymphocytes (%) (Auto) 23.0 % Monocytes (%) (Auto) 12.1 % Eosinophils (%) (Auto) 2.4 % Basophils (%) (Auto) 1.0 % Neutrophils # (Auto) 4.3 TH/MM3 Lymphocytes # (Auto) 1.6 TH/MM3 Monocytes # (Auto) 0.9 TH/MM3 Eosinophils # (Auto) 0.2 TH/MM3 Basophils # (Auto) 0.1 TH/MM3 CBC Comment DIFF FINAL Differential Comment Laboratory Tests Test 04/06/17 04:23 04/07/17 07:45 Blood Urea Nitrogen 8 MG/DL 9 MG/DL Creatinine 0.66 MG/DL 0.68 MG/DL Random Glucose 104 MG/DL 75 MG/DL Calcium Level 9.0 MG/DL 9.2 MG/DL Magnesium Level 2.3 MG/DL 2.3 MG/DL Sodium Level 140 MEQ/L 140 MEQ/L Potassium Level 3.7 MEQ/L 4.9 MEQ/L Chloride Level 104 MEQ/L 105 MEQ/L Carbon Dioxide Level 28.5 MEQ/L 23.2 MEQ/L Anion Gap 8 MEQ/L 12 MEQ/L Estimat Glomerular Filtration Rate 172 ML/MIN 166 ML/MIN Imaging 04/07 CXR - improving patchy infiltrates Chest X-Ray 03/31/17 0600 Signed Impressions: Service Date/Time: Friday, March 31, 2017 03:39 - CONCLUSION: 1. Tracheostomy in good position. Cardiomegaly with subsegmental basilar dependent airspace disease. Stephan Rich MD Abdomen/Pelvis CT 03/30/17 0000 Signed Impressions: Service Date/Time: Thursday, March 30, 2017 15:46 - CONCLUSION: 1. The gastrojejunostomy tube remains in place. 2. Nonspecific nonobstructive bowel gas pattern which may represent a mild ileus or gastroenteritis. 3. Unremarkable gallbladder. 4. The study is degraded by mild motion and streak artifact. Clayton Mccray MD Abdomen X-Ray 03/30/17 0000 Signed Impressions: Service Date/Time: Thursday, March 30, 2017 04:37 - CONCLUSION: Diffusely dilated loops of bowel. Zachariah Jiménez MD Physical Exam GENERAL: Opens eyes when stimulated, no interaction, not in respiratory distress, has chronic trach SKIN: Warm and dry. No generalized rash HEAD: Atraumatic. Normocephalic. No temporal wasting, or tenderness. EYES: [place] conjunctiva. No petechia or hemorrhage. Pupils equal, round and reactive to light. No scleral icterus. No injection or drainage. EARS, NOSE AND THROAT: Nose without bleeding or purulent nasal discharge. Moist oral mucosa NECK: Trachea midline. Supple and no meningeal signs CARDIOVASCULAR: Bradycardic, regular rate and rhythm. No murmurs, rubs or gallops heard RESPIRATORY: Clear to auscultation. Breath sounds equal bilaterally. No rales , wheezing or rhonchi. Decreased at the bases. ABDOMEN: Soft, nondistended, bowel sounds present and normoactive. No reaction to palpation, no guarding. No organomegaly. PEG site ok EXTREMITIES: No clubbing, cyanosis, or edema. No joint effusion. Well perfused and warm. NEUROLOGICAL: No interaction. Less spastic UE and LE. Both feet plantar flexed. PSYCHIATRIC: Unable to assess LINE: No evidence of infection : Sundar cath in place, urine looks clear Assessment & Plan Remarks IMPRESSION Recurrent fevers, possible sepsis - has N/V since the weekend - CXR better - no central lines MRSA PNA, CXR better Has had multiple admissions for recurrent fevers, ?intermittent plugging/ atelectasis Chronic trach Chronic vegetative state due to anoxic injury Vomiting RECOMMENDATION Continue per PEG Zyvox for MRSA PNA - Follow CBC - to finish 04/09 Check amylase and lipase Monitor progress Monitor temps Pulmonary toilet Michelle Reynolds MD Apr 07, 2017 09:26
[2017-04-07 11:02] LABS: BLOOD, URINE NEG (NEG); GLUCOSE,URINE NEG (NEG); KETONE, URINE 40 mg/dL (NEG); MUCUS URINE FEW /lpf (OCC); NITRITE,URINE NEG (NEG); URINE COLOR YELLOW (YELLW/STRAW)
[2017-04-07 11:03] LABS: COMMENT (UR) CATH-CULT NOT IND; CULTURE IF INDICATED CATH CULTURE NOT IND
[2017-04-07] MEDS: MORPHINE SULFATE 4 MG/ML INJ IV PUSH PRN (12:35)
[2017-04-07 13:52] LABS: AMYLASE 97 U/L (25-115)
--- NOTE | 2017-04-07 15:09 | HHI.GIFU ---
Subjective Remarks Resting in bed in no distress. Bit lip earlier and some blood was suctioned into canister. No hematemesis. Spitting up clear secretions- no gastric contents. (Vida Kaba) Objective Vitals I&O Vital Signs Date Time Temp Pulse Resp B/P (MAP) Pulse Ox O2 Delivery O2 Flow Rate FiO2 04/07/17 14:00 93 04/07/17 13:00 49 04/07/17 12:00 104 04/07/17 11:00 110 04/07/17 10:00 61 19 156/70 (98) 100 04/07/17 10:00 61 04/07/17 09:00 48 16 134/59 (84) 100 04/07/17 08:00 50 04/07/17 08:00 89 19 91 04/07/17 06:00 85 04/07/17 04:45 93 T-piece 40 04/07/17 04:00 99.5 80 17 136/63 (87) 100 04/07/17 04:00 80 04/07/17 02:00 80 04/07/17 00:00 77 04/07/17 00:00 99.9 77 16 144/63 (90) 99 04/06/17 22:00 101 04/06/17 21:32 92 T-piece 40 04/06/17 20:00 67 04/06/17 20:00 100.7 67 20 149/65 (93) 97 04/06/17 18:00 58 21 158/69 (98) 93 04/06/17 18:00 58 04/06/17 17:00 82 21 154/75 (101) 31 04/06/17 16:00 101 04/06/17 16:00 101 28 138/68 (91) 95 I/O 04/06/17 04/06/17 04/06/17 04/07/17 04/07/17 04/07/17 07:00 15:00 23:00 07:00 15:00 23:00 Intake Total 200 ml 210 ml 1000 ml Output Total 700 ml 850 ml 350 ml Balance -500 ml 210 ml -850 ml 650 ml IV Total 0 ml 210 ml 1000 ml Tube Feeding 200 ml Output Urine Total 300 ml 250 ml 350 ml Gastric Drainage Total 400 ml 600 ml # Voids 1 # Bowel Movements 1 1 Laboratory Laboratory Tests Test 04/07/17 07:45 04/07/17 10:00 Blood Urea Nitrogen 9 Creatinine 0.68 Random Glucose 75 Calcium Level 9.2 Magnesium Level 2.3 Sodium Level 140 Potassium Level 4.9 Chloride Level 105 Carbon Dioxide Level 23.2 Anion Gap 12 Estimat Glomerular Filtration Rate 166 Amylase Level 97 Lipase 164 Urine Color YELLOW Urine Turbidity CLEAR Urine pH 7.0 Urine Specific [place] 1.024 Urine Protein TRACE Urine Glucose (UA) NEG Urine Ketones 40 Urine Occult Blood NEG Urine Nitrite NEG Urine Bilirubin NEG Urine Urobilinogen LESS THAN 2.0 Urine Leukocyte Esterase NEG Urine RBC 1 Urine WBC 3 Urine Mucus FEW Microscopic Urinalysis Comment CATH-CULT NOT IND Date/Time Source Procedure Growth Status 03/30/17 04:00 Blood Peripheral Aerobic Blood Culture - Final NO GROWTH IN 5 DAYS Complete 03/30/17 04:00 Blood Peripheral Anaerobic Blood Culture - Final NO GROWTH IN 5 DAYS Complete 03/30/17 10:00 Gastric Gastric Occult Blood - Final GASTROCCULT POSITIVE Complete 04/01/17 01:30 Sputum Endotracheal Gram Stain - Final Complete 04/01/17 01:30 Sputum Culture - Final S. Aureus Mrsa Complete Imaging Last Impressions Chest X-Ray 04/07/17 0600 Signed Impressions: Service Date/Time: Friday, April 07, 2017 04:18 - CONCLUSION: Improving patchy consolidation on the left. Santo Fisher MD Abdomen X-Ray 04/05/17 0000 Signed Impressions: Service Date/Time: Wednesday, April 05, 2017 10:04 - CONCLUSION: No acute disease. Glenys Gallardo MD Tube Change 04/02/17 0000 Signed Impressions: Service Date/Time: Sunday, April 02, 2017 10:19 - CONCLUSION: Uncomplicated gastrojejunostomy tube exchange as above. Jm Garnica MD Abdomen/Pelvis CT 03/30/17 0000 Signed Impressions: Service Date/Time: Thursday, March 30, 2017 15:46 - CONCLUSION: 1. The gastrojejunostomy tube remains in place. 2. Nonspecific nonobstructive bowel gas pattern which may represent a mild ileus or gastroenteritis. 3. Unremarkable gallbladder. 4. The study is degraded by mild motion and streak artifact. Clayton Mccray MD Physical Exam HEENT: Normocephalic; atraumatic; no jaundice. Still spitting up small amount of clear oral secretions. CHEST: Tracheostomy, t-bar, course breath sounds CARDIAC: RRR ABDOMEN: Soft, nondistended, nontender; no hepatosplenomegaly; bowel sounds are present in all four quadrants. G tube to LIWS/J tube clamped EXTREMITIES: Mild gen. edema. Contracted, bilateral foot drop SKIN: Normal; no rash; no jaundice. PROFESSIONAL MODEL: Nonverbal. Does not follow commands (Vida Kaba) Assessment and Plan Plan ASSESSMENT: - Reglux/Vomiting. On 04/06, nurse reports that he vomited TF overnight and the TF was turned off. ? if this was going to the G tube or the J tube. KUB (04/05/17)----> No acute disease. Nurse reports patient had 2 lg bms. Abdomen is soft, nondistended. Levsin started. G tube was placed to LIWS, PPI was added. He is spitting up small amount of clear oral secretions, no bilious material. Will place G tube to gravity. Start Vital 1.5 at 20cc/hr and slowly advance to gr of 55cc/hr. - Upper GI bleed. Dark red liquid was suctioned from orotracheal, Gastroccult positive. S/P EGD (03/31/17)---> Esophagitis, gastritis. Pathology minimal chronic gastritis, negative for helicobacter pylori, acute esophagitis with features of ulceration. [place] methenamine silver stain is negative for fungal organisms. No active bleeding. HH 12.4/37.5 yesterday. No obvious active bleeding PPI. - Dysphagia. Has G/J tube, although nurse reports that it is worn and they have intermittent difficulty flushing this. S/P exchange G/J tube by (04/02/17). - Sepsis, recurrent, unclear etiology. Possible aspiration. CXR (03/31/17)---> tracheostomy in good position, cardiomegaly with subsegmental basilar dependent airspace disease. CT scan abdomen and pelvis (03/30/17)---> the gastrojejunostomy tube remains in place, nonspecific nonobstructive bowel gas pattern which may represent a mild ileus or gastroenteritis, unremarkable gallbladder, the study is degraded by mild motion and streak artifact. No current bleeding. Blood cultures no growth 5 day. Sputum (+) MRSA. ID following, WBC 7.1. Afebrile. Zyvox - Respiratory Failure, chronic. Trach. Per pulmonary. - Persistent Vegetative State, Sz D/O, secondary to anoxic brain injury. - History of DVT. - Seizure disorder. PLAN: - Start Vital 1.5 at 20cc/hr and slowly advance to gr of 55cc/hr via J tube - Place G tube to gravity drainage bag - Cont. Prevacid ODT - Cont. Levsin - Monitor HH - Transfuse as necessary - Notify GI of active bleeding - Supportive care - Further recommendations to follow based on results of above - Pt seen and examined by Dr. Perez and myself and this note is written on her behalf (Vida Kaba) Physician Comments seen, examined agree with above (Anitha Perez MD) Vida Kaba Apr 07, 2017 15:09 Anitha Perez MD Apr 07, 2017 19:28
--- NOTE | 2017-04-07 18:51 | HHI.PR ---
Subjective Remarks Not responsive.Less secretions from Oral cavity. Tube feeds oat 30 CC. On a T Collar at 28 %. No fever. Trach site is clear. Chest Xray is clearing Objective Vital Signs Date Time Temp Pulse Resp B/P (MAP) Pulse Ox O2 Delivery O2 Flow Rate FiO2 04/07/17 17:00 70 19 118/55 (76) 97 04/07/17 16:00 51 04/07/17 16:00 99.1 04/07/17 16:00 51 16 107/51 (69) 100 04/07/17 15:01 52 18 110/53 (72) 100 04/07/17 14:00 93 32 152/79 (103) 32 04/07/17 14:00 93 04/07/17 13:00 49 04/07/17 13:00 49 10 140/64 (89) 54 04/07/17 12:00 104 25 140/84 (102) 83 04/07/17 12:00 104 04/07/17 11:00 110 04/07/17 10:00 61 19 156/70 (98) 100 04/07/17 10:00 61 04/07/17 09:00 48 16 134/59 (84) 100 04/07/17 08:00 50 04/07/17 08:00 89 19 91 04/07/17 06:00 85 04/07/17 04:45 93 T-piece 40 04/07/17 04:00 99.5 80 17 136/63 (87) 100 04/07/17 04:00 80 04/07/17 02:00 80 04/07/17 00:00 77 04/07/17 00:00 99.9 77 16 144/63 (90) 99 04/06/17 22:00 101 04/06/17 21:32 92 T-piece 40 04/06/17 20:00 67 04/06/17 20:00 100.7 67 20 149/65 (93) 97 I/O 04/06/17 04/06/17 04/06/17 04/07/17 04/07/17 04/07/17 07:00 15:00 23:00 07:00 15:00 23:00 Intake Total 200 ml 210 ml 1000 ml 1000 ml Output Total 700 ml 850 ml 350 ml Balance -500 ml 210 ml -850 ml 650 ml 1000 ml IV Total 0 ml 210 ml 1000 ml 1000 ml Tube Feeding 200 ml Output Urine Total 300 ml 250 ml 350 ml Gastric Drainage Total 400 ml 600 ml # Voids 1 # Bowel Movements 1 1 Result Diagram: 04/06/17 0423 04/07/17 0745 Objective Remarks GENERAL: This young black male who is awake, in no respiratory distress. He is unresponsive to any commands.. HEENT: Head normocephalic. Pupils are reactive. Sclerae are clear. Throat has few secretions. Oral secretions ++ NECK: Tracheostomy tube in place. No venous distension. No thyromegaly. CHEST: Distant breath sounds with Occ basal crackles heard HEART: Heart sounds are regular S1-S2 with no murmur. No S3. ABDOMEN: Soft, scaphoid with J and G tube in place. Bowel sounds are active. EXTREMITIES: Muscle wasting with contractures and diminished peripheral pulses. Reflexes not elicited. The patient does not move his extremities SKIN: Skin was dry and cool. Assessment and Plan Assessment and Plan IMPRESSION 1. Chronic respiratory failure. 2. Status post tracheostomy and PEG tube placement. 3. History of head injury with persistent vegetative state. 4. Basilar pneumonia with sepsis. 5. History of seizures. 6. Ileus Plan : 1. Cont Antibiotics as ordered 2. T bar at 28 % FIo2. 3. Nebs Bid , duoneb 4. Cont Trach lavage and suction. 5. Add BiPAP at HS if he desats below 90 % 6. Cont Peg tube feeds 7. IV Fluid for hydration Lisette Oconnor MD Apr 07, 2017 18:51
[2017-04-07] MEDS: cloNIDine HCL 0.1 MG TAB G-TUBE PRN (21:20)
[2017-04-08] VITALS (14 sets, daily range): BP systolic 119–184; BP diastolic 58–88; PULSE 55–111; RESP 17–26; TEMP 98.3–99.8; O2SAT 95–100
[2017-04-08] MEDS: PROPRANOLOL HCL 20 MG TAB PEG SCH ×4 (00:52→18:00)
[2017-04-08] MEDS: HYOSCYAMINE 0.125 MG TAB G-TUBE SCH ×6 (00:52→20:50)
[2017-04-08] MEDS: CHLORHEXIDINE GLUCONATE 2 % 1 PACK (2 CLOTHS) TOP SCH (04:00)
[2017-04-08] MEDS: hydrALAZINE HCL 50 MG TAB G-TUBE SCH ×3 (05:29→20:51)
[2017-04-08] MEDS: NS + KCL 20 MEQ INJ 1,000 ML IV SCH (05:30)
[2017-04-08 06:09] LABS: AUTOMATED NEUTROPHIL # 5.5 TH/MM3 (1.8-7.7); BASOPHIL % 0.5 % (0.0-2.0); EOSINOPHIL # 0.2 TH/MM3 (0-0.4); HEMATOCRIT 33.2 % (39.0-51.0); HEMO FLAGS DIFF FINAL; LYMPH % 17.3 % (9.0-44.0); LYMPHOCYTE # 1.4 TH/MM3 (1.0-4.8); MEAN CELL VOLUME 93.5 FL (80.0-100.0); MEAN CORPUSCULAR HEMOGLOBIN 31.1 PG (27.0-34.0); MEAN CORPUSCULAR HGB CONC 33.2 % (32.0-36.0); MONO % 10.3 % (0.0-8.0); NEUT % 69.9 % (16.0-70.0); PLATELET COUNT 200 TH/MM3 (150-450); RED BLOOD COUNT 3.55 MIL/MM3 (4.50-5.90); RED CELL DISTRIBUTION WIDTH 13.6 % (11.6-17.2); WHITE BLOOD COUNT 7.8 TH/MM3 (4.0-11.0)
[2017-04-08] MEDS: levETIRAcetam 500 MG TAB G-TUBE SCH ×2 (07:48→20:50)
[2017-04-08] MEDS: LINEZOLID 600 MG TAB PO SCH ×2 (07:48→20:51)
[2017-04-08] MEDS: APIXABAN 5 MG TABLET G-TUBE SCH ×2 (07:49→20:50)
[2017-04-08] MEDS: LANSOPRAZOLE SOLUTAB 30 MG TAB NG SCH (07:49)
[2017-04-08] MEDS: BACLOFEN 20 MG TAB G-TUBE SCH ×3 (07:49→15:27)
[2017-04-08] MEDS: DOCUSATE SODIUM 50 MG/SENNA 8.6 MG TAB G-TUBE SCH ×2 (07:50→20:50)
[2017-04-08] MEDS: LACTULOSE SYRUP 20 GM/30 ML CUP G-TUBE SCH (07:50)
[2017-04-08] MEDS: POLYETHYLENE GLYCOL 17 GM PKG G-TUBE SCH (07:50)
[2017-04-08] MEDS: SODIUM CHLORIDE 0.9% FLUSH 10 ML FLUSH IV FLUSH SCH ×2 (07:50→20:50)
[2017-04-08] MEDS: LORATADINE 10 MG TAB G-TUBE SCH (07:50)
[2017-04-08] MEDS: MUPIROCIN 2% CREAM 15 GM TOPICAL SCH ×2 (07:51→20:51)
[2017-04-08] MEDS: POTASSIUM CHLORIDE 25 MEQ EFFERVESCENT TAB PEG SCH ×2 (09:00→20:51)
--- NOTE | 2017-04-08 09:51 | HHI.PR ---
Subjective Remarks With secretions suctioned by the nurse. HR is better. Patient is noted bradycardic when sleeping. He was more agitated in the morning. Received baclofen. He appears in nad at this time. Objective Vitals Vital Signs Date Time Temp Pulse Resp B/P (MAP) Pulse Ox O2 Delivery O2 Flow Rate FiO2 04/08/17 08:33 100 T-piece 6.00 40 04/08/17 08:00 89 04/08/17 08:00 89 18 121/59 (79) 98 04/08/17 06:00 57 04/08/17 04:00 98.3 55 19 120/59 (79) 100 04/08/17 04:00 55 04/08/17 03:59 100 T-piece 40 04/08/17 02:00 63 04/08/17 00:00 99.2 75 17 128/67 (87) 100 04/08/17 00:00 75 04/07/17 22:00 79 04/07/17 21:37 98 T-piece 6.00 28 04/07/17 20:00 91 04/07/17 20:00 97.6 91 26 145/86 (105) 95 04/07/17 19:16 103 04/07/17 19:00 95 04/07/17 18:00 82 04/07/17 17:00 70 19 118/55 (76) 97 04/07/17 16:00 51 04/07/17 16:00 99.1 04/07/17 16:00 51 16 107/51 (69) 100 04/07/17 15:01 52 18 110/53 (72) 100 04/07/17 14:00 93 32 152/79 (103) 32 04/07/17 14:00 93 04/07/17 13:00 49 04/07/17 13:00 49 10 140/64 (89) 54 04/07/17 12:00 104 25 140/84 (102) 83 04/07/17 12:00 104 04/07/17 11:00 110 04/07/17 10:00 61 19 156/70 (98) 100 04/07/17 10:00 61 I/O 04/07/17 04/07/17 04/07/17 04/08/17 04/08/17 04/08/17 07:00 15:00 23:00 07:00 15:00 23:00 Intake Total 1000 ml 1155 ml 1480 ml Output Total 350 ml 350 ml 500 ml Balance 650 ml 805 ml 980 ml IV Total 1000 ml 1000 ml 1000 ml Tube Feeding 35 ml 480 ml Other 120 ml Output Urine Total 350 ml 350 ml 300 ml Gastric Drainage Total 200 ml # Bowel Movements 0 Result Diagram: 04/08/17 0428 04/07/17 0745 Imaging Last Impressions Chest X-Ray 04/07/17 0600 Signed Impressions: Service Date/Time: Friday, April 07, 2017 04:18 - CONCLUSION: Improving patchy consolidation on the left. Santo Fisher MD Abdomen X-Ray 04/05/17 0000 Signed Impressions: Service Date/Time: Wednesday, April 05, 2017 10:04 - CONCLUSION: No acute disease. Glenys Gallardo MD Tube Change 04/02/17 0000 Signed Impressions: Service Date/Time: Sunday, April 02, 2017 10:19 - CONCLUSION: Uncomplicated gastrojejunostomy tube exchange as above. Jm Garnica MD Abdomen/Pelvis CT 03/30/17 0000 Signed Impressions: Service Date/Time: Thursday, March 30, 2017 15:46 - CONCLUSION: 1. The gastrojejunostomy tube remains in place. 2. Nonspecific nonobstructive bowel gas pattern which may represent a mild ileus or gastroenteritis. 3. Unremarkable gallbladder. 4. The study is degraded by mild motion and streak artifact. Clayton Mccray MD Objective Remarks GENERAL: Well-developed well-nourished on trach collar ENT: No nasal bleeding or discharge. Mucous membranes pink and moist. Clenched teeth NECK: Trachea midline. No JVD. Tracheostomy in place CARDIOVASCULAR: Bradycardic. Regular rate and rhythm. No murmur RESPIRATORY: No accessory muscle use. Decreased Breath sounds equal bilaterally. GASTROINTESTINAL: Abdomen soft, nondistended. PEG in place. MUSCULOSKELETAL: Extremities without clubbing, cyanosis, or edema. No obvious deformities. Toes curled NEUROLOGICAL: Contracted withdraws from pain. Procedures EGD G J-tube exchange A/P Problem List: (1) Sepsis ICD Code: A41.9 - Sepsis, unspecified organism Status: Resolved (2) Chronic respiratory failure ICD Code: J96.10 - Chronic respiratory failure, unspecified whether with hypoxia or hypercapnia (3) History of DVT (deep vein thrombosis) ICD Code: Z86.718 - Personal history of other venous thrombosis and embolism Status: Acute (4) Permanent vegetative state ICD Code: R40.3 - Persistent vegetative state Status: Acute (5) Seizure disorder ICD Code: G40.909 - Epilepsy, unspecified, not intractable, without status epilepticus Assessment and Plan (1) Sepsis ICD Code: A41.9 - Sepsis, unspecified organism Status: Resolved (2) Chronic respiratory failure ICD Code: J96.10 - Chronic respiratory failure, unspecified whether with hypoxia or hypercapnia (3) History of DVT (deep vein thrombosis) ICD Code: Z86.718 - Personal history of other venous thrombosis and embolism Status: Acute (4) Permanent vegetative state ICD Code: R40.3 - Persistent vegetative state Status: Acute (5) Seizure disorder (6) Bradycardia ICD Code: G40.909 - Epilepsy, unspecified, not intractable, without status epilepticus (6) Bradycardia Assessment and Plan Recurrent fevers possibly central fever versus Sepsis. Sputum culture with MRSA. Continue Zyvox till April 09 status post tobramycin nebulization. Aggressive pulmonary toilet: Chronic Respiratory Failure: S/p Trach. Continue home DuoNeb. Patient with significant frothy trach secretions increase Levsin to maximum dose and continue deep suctioning. H/o DVT: on Eliquis, will continue. 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 Dw parents, think he might be anxious or in pain with clenched teeth and curled toes. Trial MSO4 and Ativan then schedule if effective Seizure Disorder: No seizure activity noted. Continue Keppra Constipation. Stooling Continue Sanam-Colace, MiraLAX and lactulose. Persistent Vomiting likely related to constipation, sepsis and pneumonia. Head CT in February 2017 with no acute changes. Zofran as needed. Hold tube feeding via JT for now, patient has no residual. G tube for meds only. Continue IV fluids for now. Recent EGD shows gastritis and esophagitis continue PPI. Abdominal x-ray unremarkable. Reconsulted GI. Monitor for aspiration though has cuffed trach and TF via JT. CXR 04/05 unremarkable Bradycardia: Patient with bradycardia when sleeping. DVT Prophylaxis: Continue home Eliquis Discharge Planning Transfer out of ICU to telemetry near nurses station Ana Dexter MD Apr 08, 2017 09:51
[2017-04-08] MEDS: SODIUM CHLOR 0.45% 1000 ML INJ 1,000 ML IV SCH (14:15)
--- NOTE | 2017-04-08 15:45 | HHI.IDPN ---
Subjective Subjective Remarks Patient is a 31-year-old male, well-known to me, recently discharged from the hospital March 29, readmitted for recurrent fevers. This is his third admission since February. He was admitted February 21 and at that time he was found to have viridans strep sepsis, as well as Pseudomonas pneumonia. Required ventilatory support at that time, and he improved. He has a chronic trach. At one time he required bronchoscopy during that hospitalization for hemoptysis, and that resolved, and no active bleeding was seen during bronchoscopy. He completed treatment for his bacteremia and pneumonia, and he was [facility] March [facility]. He was readmitted for fevers, and again received treatment for Pseudomonas pneumonia. He was stable, and went back to the [facility] on March 29, and came back because of fevers. His temperature was up to 102+, he is tachycardic between 140-150. He had a chest x-ray which was limited but there was no obvious infiltrates. He did not have any central line. He has a condom catheter in place. There is been no real change with his neurological status. There is also been no mention of any diarrhea. His WBC was up to 14. He is not on pressors. He is on T piece with good sats. He has a lot of drooling from his mouth. His neurological status remains the same, and that he is unresponsive, keeps his eyes closed, and very spastic and rigid in his extremities. Infectious disease consultation has been requested to evaluate the patient with recurrent fevers. Notes reviewed Temps ok Drooling a lot BP ok Last CXR better AXR ok LFT ok Antibiotics Zyvox - to finish 10/4 Lines PIV Past Medical History Chronic tracheostomy Recurrent aspiration pneumonia History of upper extremity DVT [place] hypertension Hyperlipidemia Diabetes History of pancreatitis and pseudocyst History of multidrug resistant infections including MRSA, and ESBL positive organism Recent treatment for viridans strep bacteremia related to a midline Past Surgical History Status post trach and revision Status post G-tube placement and revision Previous bronchoscopy Allergies: Coded Allergies: haloperidol (Unverified Adverse Reaction, Severe, Seizures, 03/30/17) Objective . Vital Signs Date Time Temp Pulse Resp B/P (MAP) Pulse Ox O2 Delivery O2 Flow Rate FiO2 04/08/17 14:00 77 04/08/17 12:00 111 04/08/17 12:00 99.8 111 26 135/64 (87) 95 04/08/17 10:00 88 04/08/17 08:33 100 T-piece 6.00 40 04/08/17 08:00 89 04/08/17 08:00 89 18 121/59 (79) 98 04/08/17 06:00 57 04/08/17 04:00 98.3 55 19 120/59 (79) 100 04/08/17 04:00 55 04/08/17 03:59 100 T-piece 40 04/08/17 02:00 63 04/08/17 00:00 99.2 75 17 128/67 (87) 100 04/08/17 00:00 75 04/07/17 22:00 79 04/07/17 21:37 98 T-piece 6.00 28 04/07/17 20:00 91 04/07/17 20:00 97.6 91 26 145/86 (105) 95 04/07/17 19:16 103 04/07/17 19:00 95 04/07/17 18:00 82 04/07/17 17:00 70 19 118/55 (76) 97 04/07/17 16:00 51 04/07/17 16:00 99.1 04/07/17 16:00 51 16 107/51 (69) 100 . Laboratory Tests Test 04/08/17 04:28 White Blood Count 7.8 TH/MM3 Red Blood Count 3.55 MIL/MM3 Hemoglobin 11.0 GM/DL Hematocrit 33.2 % Mean Corpuscular Volume 93.5 FL Mean Corpuscular Hemoglobin 31.1 PG Mean Corpuscular Hemoglobin Concent 33.2 % Red Cell Distribution Width 13.6 % Platelet Count 200 TH/MM3 Mean Platelet Volume 10.5 FL Neutrophils (%) (Auto) 69.9 % Lymphocytes (%) (Auto) 17.3 % Monocytes (%) (Auto) 10.3 % Eosinophils (%) (Auto) 2.0 % Basophils (%) (Auto) 0.5 % Neutrophils # (Auto) 5.5 TH/MM3 Lymphocytes # (Auto) 1.4 TH/MM3 Monocytes # (Auto) 0.8 TH/MM3 Eosinophils # (Auto) 0.2 TH/MM3 Basophils # (Auto) 0.0 TH/MM3 CBC Comment DIFF FINAL Differential Comment Laboratory Tests Test 04/07/17 07:45 Blood Urea Nitrogen 9 MG/DL Creatinine 0.68 MG/DL Random Glucose 75 MG/DL Calcium Level 9.2 MG/DL Magnesium Level 2.3 MG/DL Sodium Level 140 MEQ/L Potassium Level 4.9 MEQ/L Chloride Level 105 MEQ/L Carbon Dioxide Level 23.2 MEQ/L Anion Gap 12 MEQ/L Estimat Glomerular Filtration Rate 166 ML/MIN Amylase Level 97 U/L Lipase 164 U/L Imaging 04/07 CXR - improving patchy infiltrates Chest X-Ray 03/31/17 0600 Signed Impressions: Service Date/Time: Friday, March 31, 2017 03:39 - CONCLUSION: 1. Tracheostomy in good position. Cardiomegaly with subsegmental basilar dependent airspace disease. Stephan Rich MD Abdomen/Pelvis CT 03/30/17 0000 Signed Impressions: Service Date/Time: Thursday, March 30, 2017 15:46 - CONCLUSION: 1. The gastrojejunostomy tube remains in place. 2. Nonspecific nonobstructive bowel gas pattern which may represent a mild ileus or gastroenteritis. 3. Unremarkable gallbladder. 4. The study is degraded by mild motion and streak artifact. Clayton Mccray MD Abdomen X-Ray 03/30/17 0000 Signed Impressions: Service Date/Time: Thursday, March 30, 2017 04:37 - CONCLUSION: Diffusely dilated loops of bowel. Zachariah Jiménez MD Physical Exam GENERAL: Opens eyes when stimulated, no interaction, not in respiratory distress, has chronic trach SKIN: Warm and dry. No generalized rash HEAD: Atraumatic. Normocephalic. No temporal wasting, or tenderness. EYES: [place] conjunctiva. No petechia or hemorrhage. Pupils equal, round and reactive to light. No scleral icterus. No injection or drainage. EARS, NOSE AND THROAT: Nose without bleeding or purulent nasal discharge. Moist oral mucosa NECK: Trachea midline. Supple and no meningeal signs CARDIOVASCULAR: Bradycardic, regular rate and rhythm. No murmurs, rubs or gallops heard RESPIRATORY: Clear to auscultation. Breath sounds equal bilaterally. No rales , wheezing or rhonchi. Decreased at the bases. ABDOMEN: Soft, nondistended, bowel sounds present and normoactive. No reaction to palpation, no guarding. No organomegaly. PEG site ok EXTREMITIES: No clubbing, cyanosis, or edema. No joint effusion. Well perfused and warm. NEUROLOGICAL: No interaction. Less spastic UE and LE. Both feet plantar flexed. PSYCHIATRIC: Unable to assess LINE: No evidence of infection : [place] cath in place, urine looks clear Assessment & Plan Remarks IMPRESSION Recurrent fevers, temps down - has N/V, better - CXR better - no central lines MRSA PNA, CXR better Has had multiple admissions for recurrent fevers, ?intermittent plugging/ atelectasis Chronic trach Chronic vegetative state due to anoxic injury Vomiting RECOMMENDATION Continue per PEG Zyvox for MRSA PNA - Follow CBC - to finish 04/09 Monitor progress Monitor temps Pulmonary toilet Michelle Reynolds MD Apr 08, 2017 15:45
--- NOTE | 2017-04-08 19:00 | HHI.PR ---
Subjective Remarks Not responsive.Less secretions from Oral cavity. Tube feeds oat 50 CC. On a T Collar at 28 %. No fever. Trach site is clear. Chest Xray is clear Objective Vital Signs Date Time Temp Pulse Resp B/P (MAP) Pulse Ox O2 Delivery O2 Flow Rate FiO2 04/08/17 18:00 100 04/08/17 16:00 99.8 84 20 119/58 (78) 100 04/08/17 16:00 84 04/08/17 14:00 77 04/08/17 12:00 111 04/08/17 12:00 99.8 111 26 135/64 (87) 95 04/08/17 10:00 88 04/08/17 08:33 100 T-piece 6.00 40 04/08/17 08:00 89 04/08/17 08:00 89 18 121/59 (79) 98 04/08/17 06:00 57 04/08/17 04:00 98.3 55 19 120/59 (79) 100 04/08/17 04:00 55 04/08/17 03:59 100 T-piece 40 04/08/17 02:00 63 04/08/17 00:00 99.2 75 17 128/67 (87) 100 04/08/17 00:00 75 04/07/17 22:00 79 04/07/17 21:37 98 T-piece 6.00 28 04/07/17 20:00 91 04/07/17 20:00 97.6 91 26 145/86 (105) 95 04/07/17 19:16 103 04/07/17 19:00 95 I/O 04/07/17 04/07/17 04/07/17 04/08/17 04/08/17 04/08/17 07:00 15:00 23:00 07:00 15:00 23:00 Intake Total 1000 ml 1155 ml 1480 ml 673 ml Output Total 350 ml 350 ml 500 ml 1300 ml Balance 650 ml 805 ml 980 ml -627 ml Intake Oral 0 ml IV Total 1000 ml 1000 ml 1000 ml 177 ml Tube Feeding 35 ml 480 ml 496 ml Other 120 ml Output Urine Total 350 ml 350 ml 300 ml 1300 ml Gastric Drainage Total 200 ml # Bowel Movements 0 0 Result Diagram: 04/08/17 0428 04/07/17 0745 Objective Remarks GENERAL: This young black male who is awake, in no respiratory distress. He is unresponsive to any commands.. HEENT: Head normocephalic. Pupils are reactive. Sclerae are clear. Throat has few secretions. Oral secretions + NECK: Tracheostomy tube in place. No venous distension. No thyromegaly. CHEST: Distant breath sounds with Occ basal crackles.Few wheezes. HEART: Heart sounds are regular S1-S2 with no murmur. No S3. ABDOMEN: Soft, scaphoid with J and G tube in place. Bowel sounds are active. EXTREMITIES: Muscle wasting with contractures and diminished peripheral pulses. Reflexes not elicited. The patient does not move his extremities SKIN: Skin was warm. Assessment and Plan Assessment and Plan IMPRESSION 1. Chronic respiratory failure. 2. Status post tracheostomy and PEG tube placement. 3. History of head injury with persistent vegetative state. 4. Basilar pneumonia with sepsis. 5. History of seizures. 6. Ileus Plan : 1. Cont Antibiotics as ordered 2. T bar at 35 % FIo2. 3. Nebs Bid , duoneb 4. Cont Trach lavage and suction. 5. Add BiPAP at HS if he desats below 90 % 6. Cont Peg tube feeds at 50 CC 7. G Tube to Int suction Lisette Oconnor MD Apr 08, 2017 19:00
[2017-04-08] MEDS: cloNIDine HCL 0.1 MG TAB G-TUBE PRN (20:51)
[2017-04-09] VITALS (15 sets, daily range): BP systolic 127–160; BP diastolic 59–69; PULSE 56–95; RESP 20–26; TEMP 98–100.2; O2SAT 98–100
[2017-04-09] MEDS: HYOSCYAMINE 0.125 MG TAB G-TUBE SCH ×6 (00:58→20:35)
[2017-04-09] MEDS: PROPRANOLOL HCL 20 MG TAB PEG SCH ×4 (00:58→16:30)
[2017-04-09] MEDS: SODIUM CHLOR 0.45% 1000 ML INJ 1,000 ML IV SCH ×2 (02:13→14:00)
[2017-04-09] MEDS: hydrALAZINE HCL 50 MG TAB G-TUBE SCH ×3 (05:02→21:51)
[2017-04-09] MEDS: LINEZOLID 600 MG TAB PO SCH ×2 (07:50→20:36)
[2017-04-09] MEDS: LANSOPRAZOLE SOLUTAB 30 MG TAB NG SCH (07:50)
[2017-04-09] MEDS: levETIRAcetam 500 MG TAB G-TUBE SCH ×2 (07:50→20:35)
[2017-04-09] MEDS: APIXABAN 5 MG TABLET G-TUBE SCH ×2 (07:50→20:35)
[2017-04-09] MEDS: LORATADINE 10 MG TAB G-TUBE SCH (07:51)
[2017-04-09] MEDS: POLYETHYLENE GLYCOL 17 GM PKG G-TUBE SCH (07:51)
[2017-04-09] MEDS: LACTULOSE SYRUP 20 GM/30 ML CUP G-TUBE SCH (07:51)
[2017-04-09] MEDS: BACLOFEN 20 MG TAB G-TUBE SCH ×3 (07:51→16:30)
[2017-04-09] MEDS: DOCUSATE SODIUM 50 MG/SENNA 8.6 MG TAB G-TUBE SCH ×2 (07:51→20:34)
[2017-04-09] MEDS: SODIUM CHLORIDE 0.9% FLUSH 10 ML FLUSH IV FLUSH SCH ×2 (07:52→20:36)
[2017-04-09] MEDS: MUPIROCIN 2% CREAM 15 GM TOPICAL SCH ×2 (07:52→20:36)
[2017-04-09] MEDS: POTASSIUM CHLORIDE 25 MEQ EFFERVESCENT TAB PEG SCH ×2 (07:53→20:36)
--- NOTE | 2017-04-09 09:19 | HHI.PR ---
Subjective Remarks With secretions, suctioned very well by the nurse. Patient is awake and doesn't appear in acute distress. HR improved. VS appears stable. Objective Vitals Vital Signs Date Time Temp Pulse Resp B/P (MAP) Pulse Ox O2 Delivery O2 Flow Rate FiO2 04/09/17 06:00 70 04/09/17 04:00 98.8 56 20 146/67 (93) 100 04/09/17 04:00 56 04/09/17 02:57 100 T-piece 6.00 28 04/09/17 02:00 60 04/09/17 00:00 98.0 76 24 136/60 (85) 100 04/09/17 00:00 76 04/08/17 22:00 75 04/08/17 20:00 99.6 108 26 184/88 (120) 100 04/08/17 20:00 95 T-piece 6.00 40 04/08/17 20:00 108 04/08/17 18:00 100 04/08/17 16:00 99.8 84 20 119/58 (78) 100 04/08/17 16:00 84 04/08/17 14:00 77 04/08/17 12:00 111 04/08/17 12:00 99.8 111 26 135/64 (87) 95 04/08/17 10:00 88 I/O 04/08/17 04/08/17 04/08/17 04/09/17 04/09/17 04/09/17 07:00 15:00 23:00 07:00 15:00 23:00 Intake Total 1480 ml 673 ml 1160 ml Output Total 500 ml 1300 ml 800 ml Balance 980 ml -627 ml 360 ml Intake Oral 0 ml IV Total 1000 ml 177 ml Tube Feeding 480 ml 496 ml 1160 ml Output Urine Total 300 ml 1300 ml 600 ml Gastric Drainage Total 200 ml 200 ml # Bowel Movements 0 0 0 Result Diagram: 04/08/17 0428 04/07/17 0745 Imaging Last Impressions Chest X-Ray 04/07/17 0600 Signed Impressions: Service Date/Time: Friday, April 07, 2017 04:18 - CONCLUSION: Improving patchy consolidation on the left. Santo Fisher MD Abdomen X-Ray 04/05/17 0000 Signed Impressions: Service Date/Time: Wednesday, April 05, 2017 10:04 - CONCLUSION: No acute disease. Glenys Gallardo MD Tube Change 04/02/17 0000 Signed Impressions: Service Date/Time: Sunday, April 02, 2017 10:19 - CONCLUSION: Uncomplicated gastrojejunostomy tube exchange as above. Jm Garnica MD Abdomen/Pelvis CT 03/30/17 0000 Signed Impressions: Service Date/Time: Thursday, March 30, 2017 15:46 - CONCLUSION: 1. The gastrojejunostomy tube remains in place. 2. Nonspecific nonobstructive bowel gas pattern which may represent a mild ileus or gastroenteritis. 3. Unremarkable gallbladder. 4. The study is degraded by mild motion and streak artifact. Clayton Mccray MD Objective Remarks GENERAL: Well-developed well-nourished on trach collar ENT: No nasal bleeding or discharge. Mucous membranes pink and moist. Clenched teeth NECK: Trachea midline. No JVD. Tracheostomy in place CARDIOVASCULAR: Bradycardic. Regular rate and rhythm. No murmur RESPIRATORY: No accessory muscle use. Decreased Breath sounds equal bilaterally. GASTROINTESTINAL: Abdomen soft, nondistended. PEG in place. MUSCULOSKELETAL: Extremities without clubbing, cyanosis, or edema. No obvious deformities. Toes curled NEUROLOGICAL: Contracted withdraws from pain. Procedures EGD G J-tube exchange A/P Problem List: (1) Sepsis ICD Code: A41.9 - Sepsis, unspecified organism Status: Resolved (2) Chronic respiratory failure ICD Code: J96.10 - Chronic respiratory failure, unspecified whether with hypoxia or hypercapnia (3) History of DVT (deep vein thrombosis) ICD Code: Z86.718 - Personal history of other venous thrombosis and embolism Status: Acute (4) Permanent vegetative state ICD Code: R40.3 - Persistent vegetative state Status: Acute (5) Seizure disorder ICD Code: G40.909 - Epilepsy, unspecified, not intractable, without status epilepticus Assessment and Plan Recurrent fevers possibly central fever versus Sepsis. Sputum culture with MRSA. Continue Zyvox till April 09 status post tobramycin nebulization. Aggressive pulmonary toilet: Chronic Respiratory Failure: S/p Trach. Continue home DuoNeb. Patient with significant frothy trach secretions increase Levsin to maximum dose and continue deep suctioning. H/o DVT: on Eliquis, will continue. 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 Dw parents, think he might be anxious or in pain with clenched teeth and curled toes. Trial MSO4 and Ativan then schedule if effective Seizure Disorder: No seizure activity noted. Continue Keppra Constipation. Stooling Continue Sanam-Colace, MiraLAX and lactulose. Persistent Vomiting likely related to constipation, sepsis and pneumonia. Head CT in February 2017 with no acute changes. Zofran as needed. Hold tube feeding via JT for now, patient has no residual. G tube for meds only. Continue IV fluids for now. Recent EGD shows gastritis and esophagitis continue PPI. Abdominal x-ray unremarkable. Reconsulted GI. Monitor for aspiration though has cuffed trach and TF via JT. CXR 04/05 unremarkable Bradycardia: Patient with bradycardia when sleeping. Improving. DVT Prophylaxis: Continue home Eliquis Discharge Planning Transfer out of ICU to telemetry near nurses station Ana Dexter MD Apr 09, 2017 09:19
--- NOTE | 2017-04-09 12:53 | HHI.PR ---
Subjective Remarks Not responsive.Stable overall Tube feeds oat 50 CC. On a T Collar at 28 %. No fever. Trach site is clear. Chest X ray is clear Objective Vital Signs Date Time Temp Pulse Resp B/P (MAP) Pulse Ox O2 Delivery O2 Flow Rate FiO2 04/09/17 07:05 99 T-piece 5.00 28 04/09/17 06:00 70 04/09/17 04:00 98.8 56 20 146/67 (93) 100 04/09/17 04:00 56 04/09/17 02:57 100 T-piece 6.00 28 04/09/17 02:00 60 04/09/17 00:00 98.0 76 24 136/60 (85) 100 04/09/17 00:00 76 04/08/17 22:00 75 04/08/17 20:00 99.6 108 26 184/88 (120) 100 04/08/17 20:00 95 T-piece 6.00 40 04/08/17 20:00 108 04/08/17 18:00 100 04/08/17 16:00 99.8 84 20 119/58 (78) 100 04/08/17 16:00 84 04/08/17 14:00 77 I/O 04/08/17 04/08/17 04/08/17 04/09/17 04/09/17 04/09/17 07:00 15:00 23:00 07:00 15:00 23:00 Intake Total 1480 ml 673 ml 1160 ml Output Total 500 ml 1300 ml 800 ml Balance 980 ml -627 ml 360 ml Intake Oral 0 ml IV Total 1000 ml 177 ml Tube Feeding 480 ml 496 ml 1160 ml Output Urine Total 300 ml 1300 ml 600 ml Gastric Drainage Total 200 ml 200 ml # Bowel Movements 0 0 0 Result Diagram: 04/08/17 0428 04/07/17 0745 Objective Remarks GENERAL: This young black male who is awake, in no respiratory distress. He is unresponsive to any commands.. HEENT: Head normocephalic. Pupils are reactive. Sclerae are clear. Throat has few secretions. Oral secretions + NECK: Tracheostomy tube in place. No venous distension. No thyromegaly. CHEST: Distant breath sounds . Few wheezes. HEART: Heart sounds are regular S1-S2 with no murmur. No S3. ABDOMEN: Soft, scaphoid with J and G tube in place. Bowel sounds are active. EXTREMITIES: Muscle wasting with contractures and diminished peripheral pulses. Reflexes not elicited. The patient does not move his extremities SKIN: Skin was warm. Assessment and Plan Assessment and Plan IMPRESSION 1. Chronic respiratory failure. 2. Status post tracheostomy and PEG tube placement. 3. History of head injury with persistent vegetative state. 4. Basilar pneumonia with sepsis. 5. History of seizures. 6. Ileus Plan : 1. Cont Antibiotics as ordered 2. T bar at 35 % FIo2. 3. Nebs Bid , duoneb 4. Cont Trach lavage and suction. 5. CBC,BMP 6. Cont Peg tube feeds at 50 CC 7. Transfer to [facility]. Lisette Oconnor MD Apr 09, 2017 12:53
--- NOTE | 2017-04-09 13:09 | HHI.IDPN ---
Subjective Subjective Remarks Patient is a 31-year-old male, well-known to me, recently discharged from the hospital March 29, readmitted for recurrent fevers. This is his third admission since February. He was admitted February 21 and at that time he was found to have viridans strep sepsis, as well as Pseudomonas pneumonia. Required ventilatory support at that time, and he improved. He has a chronic trach. At one time he required bronchoscopy during that hospitalization for hemoptysis, and that resolved, and no active bleeding was seen during bronchoscopy. He completed treatment for his bacteremia and pneumonia, and he was discharged back to the longterm on March 20. He was readmitted for fevers, and again received treatment for Pseudomonas pneumonia. He was stable, and went back to the longterm on March 29, and came back because of fevers. His temperature was up to 102+, he is tachycardic between 140-150. He had a chest x-ray which was limited but there was no obvious infiltrates. He did not have any central line. He has a condom catheter in place. There is been no real change with his neurological status. There is also been no mention of any diarrhea. His WBC was up to 14. He is not on pressors. He is on T piece with good sats. He has a lot of drooling from his mouth. His neurological status remains the same, and that he is unresponsive, keeps his eyes closed, and very spastic and rigid in his extremities. Infectious disease consultation has been requested to evaluate the patient with recurrent fevers. Notes reviewed Temps ok Secretions still a problem, requires frequent suctioning BP ok Antibiotics Zyvox - to finish 04/09 Lines PIV Past Medical History Chronic tracheostomy Recurrent aspiration pneumonia History of upper extremity DVT [place] hypertension Hyperlipidemia Diabetes History of pancreatitis and pseudocyst History of multidrug resistant infections including MRSA, and ESBL positive organism Recent treatment for viridans strep bacteremia related to a midline Past Surgical History Status post trach and revision Status post G-tube placement and revision Previous bronchoscopy Allergies: Coded Allergies: haloperidol (Unverified Adverse Reaction, Severe, Seizures, 03/30/17) Objective . Vital Signs Date Time Temp Pulse Resp B/P (MAP) Pulse Ox O2 Delivery O2 Flow Rate FiO2 04/09/17 07:05 99 T-piece 5.00 28 04/09/17 06:00 70 04/09/17 04:00 98.8 56 20 146/67 (93) 100 04/09/17 04:00 56 04/09/17 02:57 100 T-piece 6.00 28 04/09/17 02:00 60 04/09/17 00:00 98.0 76 24 136/60 (85) 100 04/09/17 00:00 76 04/08/17 22:00 75 04/08/17 20:00 99.6 108 26 184/88 (120) 100 04/08/17 20:00 95 T-piece 6.00 40 04/08/17 20:00 108 04/08/17 18:00 100 04/08/17 16:00 99.8 84 20 119/58 (78) 100 04/08/17 16:00 84 04/08/17 14:00 77 . Laboratory Tests Test 04/08/17 04:28 White Blood Count 7.8 TH/MM3 Red Blood Count 3.55 MIL/MM3 Hemoglobin 11.0 GM/DL Hematocrit 33.2 % Mean Corpuscular Volume 93.5 FL Mean Corpuscular Hemoglobin 31.1 PG Mean Corpuscular Hemoglobin Concent 33.2 % Red Cell Distribution Width 13.6 % Platelet Count 200 TH/MM3 Mean Platelet Volume 10.5 FL Neutrophils (%) (Auto) 69.9 % Lymphocytes (%) (Auto) 17.3 % Monocytes (%) (Auto) 10.3 % Eosinophils (%) (Auto) 2.0 % Basophils (%) (Auto) 0.5 % Neutrophils # (Auto) 5.5 TH/MM3 Lymphocytes # (Auto) 1.4 TH/MM3 Monocytes # (Auto) 0.8 TH/MM3 Eosinophils # (Auto) 0.2 TH/MM3 Basophils # (Auto) 0.0 TH/MM3 CBC Comment DIFF FINAL Differential Comment Imaging 04/07 CXR - improving patchy infiltrates Chest X-Ray 03/31/17 0600 Signed Impressions: Service Date/Time: Friday, March 31, 2017 03:39 - CONCLUSION: 1. Tracheostomy in good position. Cardiomegaly with subsegmental basilar dependent airspace disease. Stephan Rich MD Abdomen/Pelvis CT 03/30/17 0000 Signed Impressions: Service Date/Time: Thursday, March 30, 2017 15:46 - CONCLUSION: 1. The gastrojejunostomy tube remains in place. 2. Nonspecific nonobstructive bowel gas pattern which may represent a mild ileus or gastroenteritis. 3. Unremarkable gallbladder. 4. The study is degraded by mild motion and streak artifact. Clayton Mccray MD Abdomen X-Ray 03/30/17 0000 Signed Impressions: Service Date/Time: Thursday, March 30, 2017 04:37 - CONCLUSION: Diffusely dilated loops of bowel. Zachariah Jiménez MD Physical Exam GENERAL: Opens eyes when stimulated, no interaction, not in respiratory distress, has chronic trach SKIN: Warm and dry. No generalized rash HEAD: Atraumatic. Normocephalic. No temporal wasting, or tenderness. EYES: [place] conjunctiva. No petechia or hemorrhage. Pupils equal, round and reactive to light. No scleral icterus. No injection or drainage. EARS, NOSE AND THROAT: Nose without bleeding or purulent nasal discharge. Moist oral mucosa NECK: Trachea midline. Supple and no meningeal signs CARDIOVASCULAR: Bradycardic, regular rate and rhythm. No murmurs, rubs or gallops heard RESPIRATORY: Clear to auscultation. Breath sounds equal bilaterally. No rales , wheezing or rhonchi. Decreased at the bases. ABDOMEN: Soft, nondistended, bowel sounds present and normoactive. No reaction to palpation, no guarding. No organomegaly. PEG site ok EXTREMITIES: No clubbing, cyanosis, or edema. No joint effusion. Well perfused and warm. NEUROLOGICAL: No interaction. Less spastic UE and LE. Both feet plantar flexed. PSYCHIATRIC: Unable to assess LINE: No evidence of infection : Sundar cath in place, urine looks clear Assessment & Plan Remarks IMPRESSION Recurrent fevers, temps down - temps good in hospital since he gets close monitoring and frequent suctioning - has N/V, better - CXR better - no central lines MRSA PNA, CXR better Has had multiple admissions for recurrent fevers, ?intermittent plugging/ atelectasis Chronic trach Chronic vegetative state due to anoxic injury Vomiting RECOMMENDATION Continue per PEG Zyvox for MRSA PNA - Follow CBC - to finish 04/09 Monitor progress Monitor temps Pulmonary toilet Michelle Reynolds MD Apr 09, 2017 13:09
--- NOTE | 2017-04-09 16:03 | HHI.GIFU ---
Subjective Remarks Resting in bed in NAD. tolerating TF. No bleeding noted. (Marce Ochoa) Objective Vitals I&O Vital Signs Date Time Temp Pulse Resp B/P (MAP) Pulse Ox O2 Delivery O2 Flow Rate FiO2 04/09/17 14:00 61 04/09/17 12:00 98.8 72 24 127/59 (81) 99 04/09/17 12:00 72 04/09/17 10:00 79 04/09/17 08:00 80 04/09/17 08:00 99.3 80 26 160/69 (99) 100 04/09/17 07:05 99 T-piece 5.00 28 04/09/17 06:00 70 04/09/17 04:00 98.8 56 20 146/67 (93) 100 04/09/17 04:00 56 04/09/17 02:57 100 T-piece 6.00 28 04/09/17 02:00 60 04/09/17 00:00 98.0 76 24 136/60 (85) 100 04/09/17 00:00 76 04/08/17 22:00 75 04/08/17 20:00 99.6 108 26 184/88 (120) 100 04/08/17 20:00 95 T-piece 6.00 40 04/08/17 20:00 108 04/08/17 18:00 100 04/08/17 16:00 99.8 84 20 119/58 (78) 100 04/08/17 16:00 84 I/O 04/08/17 04/08/17 04/08/17 04/09/17 04/09/17 04/09/17 07:00 15:00 23:00 07:00 15:00 23:00 Intake Total 1480 ml 673 ml 1160 ml Output Total 500 ml 1300 ml 800 ml Balance 980 ml -627 ml 360 ml Intake Oral 0 ml IV Total 1000 ml 177 ml Tube Feeding 480 ml 496 ml 1160 ml Output Urine Total 300 ml 1300 ml 600 ml Gastric Drainage Total 200 ml 200 ml # Bowel Movements 0 0 0 Laboratory Date/Time Source Procedure Growth Status 03/30/17 04:00 Blood Peripheral Aerobic Blood Culture - Final NO GROWTH IN 5 DAYS Complete 03/30/17 04:00 Blood Peripheral Anaerobic Blood Culture - Final NO GROWTH IN 5 DAYS Complete 03/30/17 10:00 Gastric Gastric Occult Blood - Final GASTROCCULT POSITIVE Complete 04/01/17 01:30 Sputum Endotracheal Gram Stain - Final Complete 04/01/17 01:30 Sputum Culture - Final S. Aureus Mrsa Complete Imaging Last Impressions Chest X-Ray 04/07/17 0600 Signed Impressions: Service Date/Time: Friday, April 07, 2017 04:18 - CONCLUSION: Improving patchy consolidation on the left. Santo Fisher MD Abdomen X-Ray 04/05/17 0000 Signed Impressions: Service Date/Time: Wednesday, April 05, 2017 10:04 - CONCLUSION: No acute disease. Glenys Gallardo MD Tube Change 04/02/17 0000 Signed Impressions: Service Date/Time: Sunday, April 02, 2017 10:19 - CONCLUSION: Uncomplicated gastrojejunostomy tube exchange as above. Jm Garnica MD Abdomen/Pelvis CT 03/30/17 0000 Signed Impressions: Service Date/Time: Thursday, March 30, 2017 15:46 - CONCLUSION: 1. The gastrojejunostomy tube remains in place. 2. Nonspecific nonobstructive bowel gas pattern which may represent a mild ileus or gastroenteritis. 3. Unremarkable gallbladder. 4. The study is degraded by mild motion and streak artifact. Clayton Mccray MD Physical Exam HEENT: Normocephalic; atraumatic; no jaundice. spitting up small amount of clear oral secretions. CHEST: Tracheostomy, t-bar, course breath sounds CARDIAC: RRR ABDOMEN: Soft, nondistended, nontender; no hepatosplenomegaly; bowel sounds are present in all four quadrants. PEG site clean. EXTREMITIES: Mild gen. edema. Contracted, bilateral foot drop SKIN: Normal; no rash; no jaundice. DOCTOR OSTEOPATHIC: Nonverbal. Does not follow commands (Marce Ochoa) Assessment and Plan Plan ASSESSMENT: - Reglux/Vomiting. On 04/06, nurse reports that he vomited TF overnight and the TF was turned off. ? if this was going to the G tube or the J tube. KUB (04/05/17)----> No acute disease. Nurse reports patient had 2 lg bms. Abdomen is soft, nondistended. Levsin started. G tube was placed to LIWS, PPI was added. He is spitting up small amount of clear oral secretions, no bilious material. Will place G tube to gravity. mary beth TF - Upper GI bleed. Dark red liquid was suctioned from orotracheal, Gastroccult positive. S/P EGD (03/31/17)---> Esophagitis, gastritis. Pathology minimal chronic gastritis, negative for helicobacter pylori, acute esophagitis with features of ulceration. [place] methenamine silver stain is negative for fungal organisms. No active bleeding. HH relatively stable No obvious active bleeding PPI. - Dysphagia. Has G/J tube, although nurse reports that it is worn and they have intermittent difficulty flushing this. S/P exchange G/J tube by (04/02/17). - Sepsis, recurrent, unclear etiology. Possible aspiration. CXR (03/31/17)---> tracheostomy in good position, cardiomegaly with subsegmental basilar dependent airspace disease. CT scan abdomen and pelvis (03/30/17)---> the gastrojejunostomy tube remains in place, nonspecific nonobstructive bowel gas pattern which may represent a mild ileus or gastroenteritis, unremarkable gallbladder, the study is degraded by mild motion and streak artifact. No current bleeding. Blood cultures no growth 5 day. Sputum (+) MRSA. ID following, WBC 7.1. Afebrile. Zyvox - Respiratory Failure, chronic. Trach. Per pulmonary. - Persistent Vegetative State, Sz D/O, secondary to anoxic brain injury. - History of DVT. - Seizure disorder. 04/09/17 - HH relatively stable, no obvious bleeding. mary beth TF. still with oral secretions. finishes zyvox today PLAN: - cont TF - cont prevacid - Cont. Levsin - Monitor HH - Transfuse as necessary - Notify GI of active bleeding - Supportive care - Pt seen and examined by Dr. Perez and myself and this note is written on her behalf (Marce Ochoa) Marce Ochoa Apr 09, 2017 16:03 Anitha Perez MD Apr 09, 2017 19:06
[2017-04-10] VITALS (9 sets, daily range): BP systolic 142–151; BP diastolic 65–70; PULSE 63–98; RESP 21–32; TEMP 98.9–100; O2SAT 98–100
[2017-04-10] MEDS: HYOSCYAMINE 0.125 MG TAB G-TUBE SCH ×4 (00:10→12:00)
[2017-04-10] MEDS: PROPRANOLOL HCL 20 MG TAB PEG SCH ×3 (00:10→12:00)
[2017-04-10] MEDS: SODIUM CHLOR 0.45% 1000 ML INJ 1,000 ML IV SCH (01:51)
[2017-04-10] MEDS: CHLORHEXIDINE GLUCONATE 2 % 1 PACK (2 CLOTHS) TOP SCH (04:00)
[2017-04-10] MEDS: hydrALAZINE HCL 50 MG TAB G-TUBE SCH ×2 (05:22→12:52)
[2017-04-10] MEDS ORDERED: OXYC1TAB63 PO (08:22)
[2017-04-10] MEDS ORDERED: LORA-392 PO (08:22)
[2017-04-10] MEDS ORDERED: LORA-474 G-TUBE (08:22)
--- NOTE | 2017-04-10 08:23 | HHI.DS ---
Discharge Summary Admission Date Mar 30, 2017 at 05:45 Discharge Date: Apr 10, 2017 Admitting Diagnosis (1) Sepsis ICD Code: A41.9 - Sepsis, unspecified organism Status: Resolved (2) Chronic respiratory failure ICD Code: J96.10 - Chronic respiratory failure, unspecified whether with hypoxia or hypercapnia (3) History of DVT (deep vein thrombosis) ICD Code: Z86.718 - Personal history of other venous thrombosis and embolism Status: Acute (4) Permanent vegetative state ICD Code: R40.3 - Persistent vegetative state Status: Acute (5) Seizure disorder ICD Code: G40.909 - Epilepsy, unspecified, not intractable, without status epilepticus Procedures EGD G J-tube exchange Brief History - From Admission This is an unfortunate 31-year-old male with PMH of Traumatic Brain Injury and Persistent Vegetative State, s/p Trach/PEG, h/o DVT on Coumadin, Recurrent PNA/ Sepsis and Seizure Disorder who was brought to the ER secondary to fever and tachycardia. Multiple admissions for same, s/p treatment for Sepsis and returns within 24hrs for readmission due to recurrent symptoms. Most recent admit 03/21-03/29/17 for Sepsis/PNA, s/p eval by ID w/ completion of antibiotics. Shortly after arrival, developed fever/chills and tachycardia and sent back to ER. On arrival here, BP 142/88, HR 109, O2 sat 100% on trach, Temp 101.0 rectal. WBC 14.7, WBC 6.5 on 03/29/17. Chemistry unremarkable. Lactic Acid 2.4. CXR with no definite infiltrate. Abdominal X-ray with diffusely dilated loops of bowel. S/p Blood Cultures in ER. CBC/BMP: 04/08/17 0428 04/07/17 0745 Significant Findings Laboratory Tests Test 04/07/17 10:00 04/08/17 04:28 Urine Ketones 40 mg/dL (NEG) Urine Mucus FEW /lpf (OCC) Red Blood Count 3.55 MIL/MM3 (4.50-5.90) Hemoglobin 11.0 GM/DL (13.0-17.0) Hematocrit 33.2 % (39.0-51.0) Monocytes (%) (Auto) 10.3 % (0.0-8.0) Imaging Last Impressions Chest X-Ray 04/07/17 0600 Signed Impressions: Service Date/Time: Friday, April 07, 2017 04:18 - CONCLUSION: Improving patchy consolidation on the left. Santo Fisher MD Abdomen X-Ray 04/05/17 0000 Signed Impressions: Service Date/Time: Wednesday, April 05, 2017 10:04 - CONCLUSION: No acute disease. Glenys Gallardo MD Tube Change 04/02/17 0000 Signed Impressions: Service Date/Time: Sunday, April 02, 2017 10:19 - CONCLUSION: Uncomplicated gastrojejunostomy tube exchange as above. Jm Garnica MD Abdomen/Pelvis CT 03/30/17 0000 Signed Impressions: Service Date/Time: Thursday, March 30, 2017 15:46 - CONCLUSION: 1. The gastrojejunostomy tube remains in place. 2. Nonspecific nonobstructive bowel gas pattern which may represent a mild ileus or gastroenteritis. 3. Unremarkable gallbladder. 4. The study is degraded by mild motion and streak artifact. Clayton Mccray MD PE at Discharge GENERAL: Well-developed well-nourished on trach collar ENT: No nasal bleeding or discharge. Mucous membranes pink and moist. Clenched teeth NECK: Trachea midline. No JVD. Tracheostomy in place CARDIOVASCULAR: Bradycardic. Regular rate and rhythm. No murmur RESPIRATORY: No accessory muscle use. Decreased Breath sounds equal bilaterally. GASTROINTESTINAL: Abdomen soft, nondistended. PEG in place. MUSCULOSKELETAL: Extremities without clubbing, cyanosis, or edema. No obvious deformities. Toes curled NEUROLOGICAL: Contracted withdraws from pain. Hospital Course Recurrent fevers possibly central fever versus Sepsis. Sputum culture with MRSA. Received Zyvox till April 09 status post tobramycin nebulization. Aggressive pulmonary toilet. Chronic Respiratory Failure: S/p Trach. Continue home DuoNeb. Patient with significant frothy trach secretions increase Levsin to maximum dose and continue deep suctioning. H/o DVT: on Eliquis, will continue. 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 Dw parents, think he might be anxious or in pain with clenched teeth and curled toes. Trial MSO4 and Ativan then schedule if effective Seizure Disorder: No seizure activity noted. Continue Keppra Constipation. Stooling Continue Sanam-Colace, MiraLAX and lactulose. Persistent Vomiting likely related to constipation, sepsis and pneumonia. Head CT in February 2017 with no acute changes. Zofran as needed. Hold tube feeding via JT for now, patient has no residual. G tube for meds only. Continue IV fluids for now. Recent EGD shows gastritis and esophagitis continue PPI. Abdominal x-ray unremarkable. Reconsulted GI. Monitor for aspiration though has cuffed trach and TF via JT. CXR 04/05 unremarkable Bradycardia: Patient with bradycardia when sleeping. Improving. DVT Prophylaxis: Continue home Eliquis Discharge Planning Transfer out of ICU to telemetry near nurses station, however no beds available. Patient improved, DC to SNF Pt Condition on Discharge: Stable Discharge Disposition: Discharge to SNF Discharge Time: > 30 minutes Discharge Instructions DIET: Follow Instructions for: On Tube Feeding Additional Diet Instructions: Vital 1.5 goal of 55cc/hr. Activities you can perform: Regular-No Restrictions Follow up Referrals: PCP Follow-up - 2-3 Days Continued Medications: Acetaminophen (Tylenol) 325 Mg Tab 650 MG PO Q6H PRN for INCREASED TEMPERATURE, TAB 0 Refills Amlodipine (Norvasc) 10 Mg Tab 10 MG PEG DAILY for Blood Pressure Management, #30 TAB Apixaban (Eliquis) 5 Mg Tab 5 MG G-TUBE BID for Blood Clot Prevention, #60 TAB 0 Refills Atropine Opth Drops (Atropine Opth Drops) 1% Soln 1 DROP SL Q12HR PRN for For mild/moderate secretions, #2 ML 0 Refills Baclofen (Baclofen) 20 Mg Tab 20 MG G-TUBE TID for Muscle Spasm, #90 TAB [address] (Bisacodyl EC) 5 Mg Tabec 5 MG PO DAILY PRN for CONSTIPATION, #60 TAB 0 Refills Clonidine (Catapres) 0.1 Mg Tab 0.1 MG PO Q6H PRN for SBP>160, DBP>90, #90 TAB Famotidine (Pepcid) 20 Mg Tab 40 MG G-TUBE DAILY for Heartburn Management, #60 TAB 0 Refills Guaifenesin Liq (Guaifenesin Liq) 100 mg/5 ML Soln 100 MG PO Q4H PRN for COUGH, #1 BOTTLE 0 Refills Hydralazine HCl (Hydralazine HCl) 50 Mg Tablet 50 MG PO Q8HR for Blood Pressure Management, #90 TAB Hyoscyamine (Hyoscyamine) 0.125 Mg Tab 0.125 MG PO Q4H for Gastrointestinal disorders, TAB 0 Refills Ipratropium-Albuterol Neb (Duoneb) 0.5-2.5 Mg/3 Ml Neb 1 NEBULE INH Q4HR NEB for SHORTNESS OF BREATH, #120 NEBULE 0 Refills Levetiracetam (Keppra) 1,000 Mg Tab 1000 MG G-TUBE BID for Control Seizures, #60 TAB 0 Refills Loratadine Liq (Claritin Liq) 5 Mg/5 Ml Liq 5 MG G-TUBE DAILY for Allergy Management, #1 BOTTLE 0 Refills Lorazepam (Ativan) 1 Mg Tab 1 MG G-TUBE Q4H PRN for for severe anxiety or dyspnea, #60 TAB 0 Refills (This prescription has been renewed) Lorazepam (Ativan) 0.5 Mg Tab 0.5 MG PO DAILY PRN for ANXIETY AND/OR AGITATION, #60 TAB 0 Refills (This prescription has been renewed) Metoprolol Tartrate (Metoprolol Tartrate) 25 Mg Tab 25 MG PO BID PRN for HR>110, #60 TAB 0 Refills Oxycodone-Acetaminophen (Oxycodone-Acetaminophen) 5-325 mg Tab 1 TAB PO Q6H PRN for PAIN, #30 TAB 0 Refills (This prescription has been renewed ) Potassium Chloride Liq (Potassium Chloride Liq) 20 Meq/15 Ml Soln 20 MEQ PO BID for Electrolyte Replacement, #900 ML 0 Refills Propranolol (Propranolol) 20 Mg Tab 20 MG PEG Q6HR for Blood Pressure Management, #120 TAB Sennosides-Docusate Sodium (Senna Plus 8.6-50 mg) 8.6 Mg-50 Mg Tab 2 TAB PEG BID for Constipation, #120 TAB Tobramycin Sulfate (Tobramycin Sulfate) 40 Mg/Ml Inj 80 MG NEB Q12HR NEB for Breathing Treatment, #10 AMPULE Discontinued Medications: Ciprofloxacin Opth Drops (Ciloxan Opth Drops) 0.3% Soln 1 DROP EACH EYE Q4H for EYE INFECTION, #1 BOTTLE 0 Refills Cosma,Ana MD Apr 10, 2017 08:23
--- NOTE | 2017-04-10 08:32 | HHI.PR ---
Subjective Remarks Eyes open tracking. Appears in nad. No secretions at this time. HR better. VSS Finished abx yesterday Objective Vitals Vital Signs Date Time Temp Pulse Resp B/P (MAP) Pulse Ox O2 Delivery O2 Flow Rate FiO2 04/10/17 06:00 63 04/10/17 04:19 100 T-piece 6.00 28 04/10/17 04:00 66 04/10/17 04:00 98.9 66 21 149/65 (93) 100 04/10/17 02:00 67 04/10/17 00:44 99 T-piece 28 04/10/17 00:00 98 04/10/17 00:00 100.0 98 32 151/70 (97) 98 04/09/17 22:00 95 04/09/17 21:07 98 T-piece 6.00 28 04/09/17 20:00 74 04/09/17 20:00 100.2 74 24 134/61 (85) 100 04/09/17 18:00 76 04/09/17 16:00 80 04/09/17 16:00 99.4 80 22 140/65 (90) 100 04/09/17 14:00 61 04/09/17 12:00 98.8 72 24 127/59 (81) 99 04/09/17 12:00 72 04/09/17 10:00 79 I/O 04/09/17 04/09/17 04/09/17 04/10/17 04/10/17 04/10/17 07:00 15:00 23:00 07:00 15:00 23:00 Intake Total 1160 ml 1000 ml 864 ml 925 ml Output Total 800 ml 1800 ml 1925 ml Balance 360 ml 1000 ml -936 ml -1000 ml IV Total 1000 ml 204 ml Tube Feeding 1160 ml 660 ml 765 ml Tube Irrigant 160 ml Output Urine Total 600 ml 1800 ml 1675 ml Gastric Drainage Total 200 ml 250 ml # Bowel Movements 0 0 0 Result Diagram: 04/08/17 0428 04/07/17 0745 Imaging Last Impressions Chest X-Ray 04/07/17 0600 Signed Impressions: Service Date/Time: Friday, April 07, 2017 04:18 - CONCLUSION: Improving patchy consolidation on the left. Santo Fisher MD Abdomen X-Ray 04/05/17 0000 Signed Impressions: Service Date/Time: Wednesday, April 05, 2017 10:04 - CONCLUSION: No acute disease. Glenys Gallardo MD Tube Change 04/02/17 0000 Signed Impressions: Service Date/Time: Sunday, April 02, 2017 10:19 - CONCLUSION: Uncomplicated gastrojejunostomy tube exchange as above. Jm Garnica MD Abdomen/Pelvis CT 03/30/17 0000 Signed Impressions: Service Date/Time: Thursday, March 30, 2017 15:46 - CONCLUSION: 1. The gastrojejunostomy tube remains in place. 2. Nonspecific nonobstructive bowel gas pattern which may represent a mild ileus or gastroenteritis. 3. Unremarkable gallbladder. 4. The study is degraded by mild motion and streak artifact. Clayton Mccray MD Objective Remarks GENERAL: Well-developed well-nourished on trach collar ENT: No nasal bleeding or discharge. Mucous membranes pink and moist. Clenched teeth NECK: Trachea midline. No JVD. Tracheostomy in place CARDIOVASCULAR: Bradycardic. Regular rate and rhythm. No murmur RESPIRATORY: No accessory muscle use. Decreased Breath sounds equal bilaterally. GASTROINTESTINAL: Abdomen soft, nondistended. PEG in place. MUSCULOSKELETAL: Extremities without clubbing, cyanosis, or edema. No obvious deformities. Toes curled NEUROLOGICAL: Contracted withdraws from pain. Procedures EGD G J-tube exchange A/P Problem List: (1) Sepsis ICD Code: A41.9 - Sepsis, unspecified organism Status: Resolved (2) Chronic respiratory failure ICD Code: J96.10 - Chronic respiratory failure, unspecified whether with hypoxia or hypercapnia (3) History of DVT (deep vein thrombosis) ICD Code: Z86.718 - Personal history of other venous thrombosis and embolism Status: Acute (4) Permanent vegetative state ICD Code: R40.3 - Persistent vegetative state Status: Acute (5) Seizure disorder ICD Code: G40.909 - Epilepsy, unspecified, not intractable, without status epilepticus Assessment and Plan Recurrent fevers possibly central fever versus Sepsis. Sputum culture with MRSA. Received Zyvox till April 09 status post tobramycin nebulization. Aggressive pulmonary toilet. Chronic Respiratory Failure: S/p Trach. Continue home DuoNeb. Patient with significant frothy trach secretions increase Levsin to maximum dose and continue deep suctioning. H/o DVT: on Eliquis, will continue. 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 Dw parents, think he might be anxious or in pain with clenched teeth and curled toes. Trial MSO4 and Ativan then schedule if effective Seizure Disorder: No seizure activity noted. Continue Keppra Constipation. Stooling Continue Sanam-Colace, MiraLAX and lactulose. Persistent Vomiting likely related to constipation, sepsis and pneumonia. Head CT in February 2017 with no acute changes. Zofran as needed. Hold tube feeding via JT for now, patient has no residual. G tube for meds only. Continue IV fluids for now. Recent EGD shows gastritis and esophagitis continue PPI. Abdominal x-ray unremarkable. Reconsulted GI. Monitor for aspiration though has cuffed trach and TF via JT. CXR 04/05 unremarkable Bradycardia: Patient with bradycardia when sleeping. Improving. DVT Prophylaxis: Continue home Eliquis Discharge Planning Transfer out of ICU to telemetry near nurses station, however no beds available. Patient improved, DC to SNF Ana Dexter MD Apr 10, 2017 08:32
[2017-04-10] MEDS: POTASSIUM CHLORIDE 25 MEQ EFFERVESCENT TAB PEG SCH (08:50)
[2017-04-10] MEDS: BACLOFEN 20 MG TAB G-TUBE SCH ×2 (08:50→12:52)
[2017-04-10] MEDS: LACTULOSE SYRUP 20 GM/30 ML CUP G-TUBE SCH (08:50)
[2017-04-10] MEDS: POLYETHYLENE GLYCOL 17 GM PKG G-TUBE SCH (08:50)
[2017-04-10] MEDS: APIXABAN 5 MG TABLET G-TUBE SCH (08:51)
[2017-04-10] MEDS: DOCUSATE SODIUM 50 MG/SENNA 8.6 MG TAB G-TUBE SCH (08:51)
[2017-04-10] MEDS: levETIRAcetam 500 MG TAB G-TUBE SCH (08:51)
[2017-04-10] MEDS: LANSOPRAZOLE SOLUTAB 30 MG TAB NG SCH (08:51)
[2017-04-10] MEDS: LORATADINE 10 MG TAB G-TUBE SCH (08:53)
[2017-04-10] MEDS: SODIUM CHLORIDE 0.9% FLUSH 10 ML FLUSH IV FLUSH SCH (08:53)
[2017-04-10] MEDS: MUPIROCIN 2% CREAM 15 GM TOPICAL SCH (09:00)
--- NOTE | 2017-04-10 10:08 | HHI.GIFU ---
Subjective Remarks Pt in bed in NAD. Arthur TF. getting d/c to SNF Objective Vitals I&O Vital Signs Date Time Temp Pulse Resp B/P (MAP) Pulse Ox O2 Delivery O2 Flow Rate FiO2 04/10/17 08:00 98.9 79 21 147/65 (92) 100 04/10/17 08:00 63 04/10/17 06:00 63 04/10/17 04:19 100 T-piece 6.00 28 04/10/17 04:00 66 04/10/17 04:00 98.9 66 21 149/65 (93) 100 04/10/17 02:00 67 04/10/17 00:44 99 T-piece 28 04/10/17 00:00 98 04/10/17 00:00 100.0 98 32 151/70 (97) 98 04/09/17 22:00 95 04/09/17 21:07 98 T-piece 6.00 28 04/09/17 20:00 74 04/09/17 20:00 100.2 74 24 134/61 (85) 100 04/09/17 18:00 76 04/09/17 16:00 80 04/09/17 16:00 99.4 80 22 140/65 (90) 100 04/09/17 14:00 61 04/09/17 12:00 98.8 72 24 127/59 (81) 99 04/09/17 12:00 72 I/O 04/09/17 04/09/17 04/09/17 04/10/17 04/10/17 04/10/17 07:00 15:00 23:00 07:00 15:00 23:00 Intake Total 1160 ml 1000 ml 864 ml 925 ml Output Total 800 ml 1800 ml 1925 ml Balance 360 ml 1000 ml -936 ml -1000 ml IV Total 1000 ml 204 ml Tube Feeding 1160 ml 660 ml 765 ml Tube Irrigant 160 ml Output Urine Total 600 ml 1800 ml 1675 ml Gastric Drainage Total 200 ml 250 ml # Bowel Movements 0 0 0 Laboratory Date/Time Source Procedure Growth Status 03/30/17 04:00 Blood Peripheral Aerobic Blood Culture - Final NO GROWTH IN 5 DAYS Complete 03/30/17 04:00 Blood Peripheral Anaerobic Blood Culture - Final NO GROWTH IN 5 DAYS Complete 03/30/17 10:00 Gastric Gastric Occult Blood - Final GASTROCCULT POSITIVE Complete 04/01/17 01:30 Sputum Endotracheal Gram Stain - Final Complete 04/01/17 01:30 Sputum Culture - Final S. Aureus Mrsa Complete Imaging Last Impressions Chest X-Ray 04/07/17 0600 Signed Impressions: Service Date/Time: Friday, April 07, 2017 04:18 - CONCLUSION: Improving patchy consolidation on the left. Santo Fisher MD Abdomen X-Ray 04/05/17 0000 Signed Impressions: Service Date/Time: Wednesday, April 05, 2017 10:04 - CONCLUSION: No acute disease. Glenys Gallardo MD Tube Change 04/02/17 0000 Signed Impressions: Service Date/Time: Sunday, April 02, 2017 10:19 - CONCLUSION: Uncomplicated gastrojejunostomy tube exchange as above. Jm Garnica MD Abdomen/Pelvis CT 03/30/17 0000 Signed Impressions: Service Date/Time: Thursday, March 30, 2017 15:46 - CONCLUSION: 1. The gastrojejunostomy tube remains in place. 2. Nonspecific nonobstructive bowel gas pattern which may represent a mild ileus or gastroenteritis. 3. Unremarkable gallbladder. 4. The study is degraded by mild motion and streak artifact. Clayton Mccray MD Physical Exam HEENT: Normocephalic; atraumatic; no jaundice. spitting up clear oral secretions. CHEST: Tracheostomy, t-bar, course breath sounds CARDIAC: RRR ABDOMEN: Soft, nondistended, nontender; no hepatosplenomegaly; bowel sounds are present in all four quadrants. PEG site clean. EXTREMITIES: Mild gen. edema. Contracted, bilateral foot drop SKIN: Normal; no rash; no jaundice. RIBBER: Nonverbal. Does not follow commands Assessment and Plan Plan ASSESSMENT: - Reflux/Vomiting. On 04/06, nurse reports that he vomited TF overnight and the TF was turned off. ? if this was going to the G tube or the J tube. KUB (04/05/17)----> No acute disease. Nurse reports patient had 2 lg bms. Abdomen is soft, nondistended. Levsin started. G tube was placed to LIWS, PPI was added. He is spitting up small amount of clear oral secretions, no bilious material. Will place G tube to gravity. arthur TF - Upper GI bleed. Dark red liquid was suctioned from orotracheal, Gastroccult positive. S/P EGD (03/31/17)---> Esophagitis, gastritis. Pathology minimal chronic gastritis, negative for helicobacter pylori, acute esophagitis with features of ulceration. [place] methenamine silver stain is negative for fungal organisms. No active bleeding. HH relatively stable No obvious active bleeding PPI. - Dysphagia. Has G/J tube, although nurse reports that it is worn and they have intermittent difficulty flushing this. S/P exchange G/J tube by (04/02/17). - Sepsis, recurrent, unclear etiology. Possible aspiration. CXR (03/31/17)---> tracheostomy in good position, cardiomegaly with subsegmental basilar dependent airspace disease. CT scan abdomen and pelvis (03/30/17)---> the gastrojejunostomy tube remains in place, nonspecific nonobstructive bowel gas pattern which may represent a mild ileus or gastroenteritis, unremarkable gallbladder, the study is degraded by mild motion and streak artifact. No current bleeding. Blood cultures no growth 5 day. Sputum (+) MRSA. ID following, WBC 7.1. Afebrile. Zyvox - Respiratory Failure, chronic. Trach. Per pulmonary. - Persistent Vegetative State, Sz D/O, secondary to anoxic brain injury. - History of DVT. - Seizure disorder. 04/09/17 - HH relatively stable, no obvious bleeding. arthur TF. still with oral secretions. finishes zyvox today 04/10/17 - arthur TF, HH stable, d/c to SNF PLAN: - cont TF - cont prevacid - Cont. Levsin - Monitor HH - Transfuse as necessary - Supportive care - GI will sign off. Please reconsult if needed. - Pt seen and examined by Dr. Perez and myself and this note is written on her behalf Marce Ochoa Apr 10, 2017 10:08
== END 2017-04-10 13:00 | DRG 871 ==
LOC: NEPC 03:22 → NEDA 05:45 → HIME 08:30
PROVIDERS: ADMIT Hospitalist; ATTEND Hospitalist
PROC: 0DB68ZX Excision of Stomach, Via Natural or Artificial Opening Endoscopic, Diagnostic (ICD-10-PCS; 2017-03-31)
PROC: 0DB58ZX Excision of Esophagus, Via Natural or Artificial Opening Endoscopic, Diagnostic (ICD-10-PCS; principal; 2017-03-31 13:10)
PROC: 0D2DXUZ Change Feeding Device in Lower Intestinal Tract, External Approach (ICD-10-PCS; 2017-04-02)
DX: A41.9 Sepsis, unspecified organism (principal); J15.212 Pneumonia due to Methicillin resistant Staphylococcus aureus; R40.3 Persistent vegetative state; G93.1 Anoxic brain damage, not elsewhere classified; J96.10 Chronic respiratory failure, unspecified whether with hypoxia or hypercapnia; I11.9 Hypertensive heart disease without heart failure; K29.51 Unspecified chronic gastritis with bleeding; K56.7 Ileus, unspecified; Z93.0 Tracheostomy status; K29.70 Gastritis, unspecified, without bleeding; G40.909 Epilepsy, unspecified, not intractable, without status epilepticus; E78.5 Hyperlipidemia, unspecified; E11.9 Type 2 diabetes mellitus without complications; K21.0 Gastro-esophageal reflux disease with esophagitis; R00.1 Bradycardia, unspecified; R13.10 Dysphagia, unspecified; Z79.01 Long term (current) use of anticoagulants; Z86.14 Personal history of Methicillin resistant Staphylococcus aureus infection; Z86.718 Personal history of other venous thrombosis and embolism; Z87.820 Personal history of traumatic brain injury; Z93.1 Gastrostomy status
CPT/HCPCS: 36600; 49452; 71010; 74000; 74177; 76937; 80048; 80053; 80202; 81001; 82150; 82270; 82805; 83605; 83690; 83735; 84100; 84145; 84484; 85025; 85652; 86140; 86403; 87040; 87070; 87147; 87186; 87205; 87641; 88305; 88312; 94640; 94664; 96361; 96374; 96375; C1769; C1874; J0692; J2060; J2270; J2405; J3370; J3480; J7030; J7050; J7685; Q9967

== ENCOUNTER 2017-05-19 11:48 | Day surgery (SDC) | payer OTHER ==
[~2017-05-19] VITALS: Ht 162.6 cm; Wt 65.9 kg
[~2017-05-19 11:48] MED LIST changes: -CILO0.3S EACH EYE; -HYOS0.128 PO; +HYOS1TAB9 PO
[2017-05-19] MEDS ORDERED: IOHEXOL 350 MG/ML 50 ML BTL (for RAD DIAG) G-TUBE ONE (11:49)
[2017-05-19 12:06] VITALS: BP 120/72; PULSE 50; RESP 18; TEMP 97.6; O2SAT 100
[2017-05-19 15:40] VITALS: BP 112/62; PULSE 83; RESP 16; TEMP 97.2; O2SAT 100
--- NOTE | 2017-05-19 15:43 | PD.RAD ---
Post Procedure Progress Note Pre Procedure Diagnosis: (1) Permanent vegetative state (2) Feeding tube dysfunction Post Procedure Diagnosis: (1) Permanent vegetative state (2) Feeding tube dysfunction Procedure Date: May 19, 2017 Supervising Radiologist: Lamonte Zepeda Anesthesia: Local Plan of Activity Patient to Unit: ROPU Patient Condition: Poor Additional Comments: G/J tube exchanged without difficulty. Tube in good position OK for use. Full dictated report to follow in PACS See PACS Report for procedural detail/treatment Lamonte Zepeda MD May 19, 2017 15:43
--- NOTE | 2017-05-19 17:35 | RADRPT ---
EXAM DATE/TIME: 05/19/2017 15:00 [facility] COMPARISON: CHANGE OF GJ-TUBE CATHETER, April 02, 2017, 10:19. INDICATIONS : Patient with broken TJ tube. MEDICAL HISTORY : 1. Anoxic brain injury 2. Hx of left upper extremity DVT 3. Chronic NOAC use 4. Chronic tracheostomy 5. recurrant aspiration pnuemonia 6. HTN 7. DM SURGICAL HISTORY : 1. Tracheostmy 2. GJ tube ENCOUNTER: Subsequent ACUITY: 1 day PAIN SCORE: 0/10 FLUORO TIME: 1.9 minutes IMAGE SERIES: 2 CONTRAST: 10- cc Omnipaque (iohexol) 350 DEVICE(S): 1.) 22 [place] Transgastric tube PROCEDURE : 1. Fluoroscopically guided gastrojejunostomy tube exchange. 2. Conscious sedation with continuous EKG and oximetry monitoring. The risks, benefits and alternatives to the procedure were explained and verbal and written consent w as obtained. The site was prepped in sterile fashion. Full sterile technique was used, including ca p, mask, sterile gloves and gown and a large sterile sheet. Hand hygiene and 2% chlorhexidine and/or betadine/alcohol prep was utilized per protocol for cutaneous antisepsis. The skin and subcutaneous tissues were infiltrated with local anesthetic solution. With fluoroscopic guidance a guidewire was passed through the previous gastrojejunostomy tube and a f resh tube was placed over the guidewire. The balloon was inflated with appropriate volume of saline. Injection of positive contrast demonstrates good position of the gastric and jejunal lumens of the tube. The procedure was performed in the presence of an independent trained radiology nurse to assist in th e monitoring of the patient. EKG and oximetry remained stable throughout the procedure. The patient tolerated the procedure well and there were no complications. The patient was sent to post anesthesi a recovery in stable condition. CONCLUSION: Uncomplicated gastrojejunostomy tube exchange as above. Lamonte Zepeda MD on May 19, 2017 at 17:33 Board Certified Radiologist. This report was verified electronically.
== END 2017-05-19 17:00 | disposition home or self-care (01) ==
LOC: HROP 11:48 → HRIP 11:49 → HROP 17:00
PROVIDERS: ATTEND Family Medicine
DX: K94.23 Gastrostomy malfunction (principal); R40.3 Persistent vegetative state; G93.1 Anoxic brain damage, not elsewhere classified; R56.1 Post traumatic seizures; I10 Essential (primary) hypertension
CPT/HCPCS: 49452; C1769; C1874; C1894; Q9967

== ENCOUNTER 2017-06-12 14:24 | Emergency (ER) | payer OTHER ==
[~2017-06-12 14:24] MED LIST changes: -AMLO10 PEG; -APIX5TAB G-TUBE; -CLON.1 PO; -FAMO1TAB37 G-TUBE; -GUAI100S7 PO; -HYDR-3800 PO; -HYOS1TAB9 PO; -KEPP10002 G-TUBE; -METO25TA3 PO; -OXYC1TAB63 PO; -POTA10SO12 PO; -PROP20TA3 PEG; -SENN1TAB PEG; -TOBR40IN5 NEB
[2017-06-12 14:46] VITALS: BP 163/77; PULSE 103; RESP 22; TEMP 98.7; O2SAT 100
[2017-06-12] MEDS ORDERED: APIX5TAB PO (14:54)
[2017-06-12] MEDS ORDERED: GUAISYP4 PO (14:54)
[2017-06-12] MEDS ORDERED: HYDR-3800 (14:54)
[2017-06-12] MEDS ORDERED: FAMO20TA2 PO (14:54)
[2017-06-12 16:00] VITALS: TEMP 99.8
[2017-06-12] MEDS ORDERED: SODIUM CHLOR 0.9% 1000 ML INJ 1,000 ML IV ONE (16:00)
[2017-06-12] MEDS ORDERED: FAMOTIDINE 20 MG/2 ML VIAL IV PUSH ONE (16:00)
--- NOTE | 2017-06-12 16:29 | PD ---
HPI Chief Complaint: [employer] Agent Problem Time Seen by Provider: 14:53 Travel History International Travel<30 days: No Contact w/Intl Traveler<30days: No Traveled to known affect area: No History of Present Illness HPI Patient is a 31-year-old male with history of anoxic brain injury, who is brought in by mom to have his trach replaced by Dr. Anderson. Mom is also concerned that he has had increased secretions from his trach. She said she had a temperature of 99.5. Patient is nonverbal, unable to provide any history. PFSH Past Medical History Anxiety: Yes Cancer: No Diminished Hearing: No Endocrine: No Gastrointestinal Disorders: Yes (GASTROSTOMY ) Hypertension: Yes Immune Disorder: No Neurologic: Yes (ANOXIC BRAIN DAMAGE) Respiratory: Yes (TRACHEOSTOMY ) Seizures: Yes (POST TRAUMATIC SEIZURE) Past Surgical History Abdominal Surgery: Yes (G/J TUBE PLACED) Cardiac Surgery: No Ear Surgery: No Endocrine Surgery: No Eye Surgery: No Genitourinary Surgery: No Gynecologic Surgery: No Oral Surgery: No Thoracic Surgery: No Other Surgery: Yes (TRACHEOSTOMY ) Social History Alcohol Use: No Tobacco Use: No Substance Use: No Allergies-Medications (Allergen,Severity, Reaction): Coded Allergies: haloperidol (Unverified Adverse Reaction, Severe, Seizures, 03/30/17) Reported Meds & Prescriptions Reported Meds & Active Scripts Active Ativan (Lorazepam) 0.5 Mg Tab 0.5 Mg PO DAILY PRN Ativan (Lorazepam) 1 Mg Tab 1 Mg G-TUBE Q4H PRN Bisacodyl EC (Bisacodyl) 5 Mg Tabec 5 Mg PO DAILY PRN Baclofen 20 Mg Tab 20 Mg G-TUBE TID Reported Hydralazine HCl 50 Mg Tablet Guaifenesin AC Liq (Guaifenesin-Codeine Liq) 100-10 Mg/5 Ml Syrp 10 Ml PO Q6H PRN Famotidine 20 Mg Tab 20 Mg PO DAILY Eliquis (Apixaban) 5 Mg Tab 5 Mg PO BID Tylenol (Acetaminophen) 325 Mg Tab 650 Mg PO Q6H PRN Duoneb (Ipratropium-Albuterol Neb) 0.5-2.5 Mg/3 Ml Neb 1 Nebule INH Q4HR NEB Atropine Opth Drops 1% Soln 1 Drop SL Q12HR PRN Claritin Liq (Loratadine) 5 Mg/5 Ml Liq 5 Mg G-TUBE DAILY Review of Systems ROS Limitations: Clinical Condition Physical Exam Narrative GENERAL: Awake, but not responsive. SKIN: Focused skin assessment warm/dry. HEAD: Atraumatic. Normocephalic. EYES: Pupils equal and round. No scleral icterus. ENT: Trachea in place. Mucous membranes pink and moist. NECK: Trachea midline. No JVD. CARDIOVASCULAR: Regular rate and rhythm. No murmur appreciated. RESPIRATORY: No accessory muscle use. Clear to auscultation. Breath sounds equal bilaterally. GASTROINTESTINAL: Abdomen soft, non-tender, nondistended. MUSCULOSKELETAL: No obvious deformities. No clubbing. No cyanosis. No edema. NEUROLOGICAL: Awake and alert does not respond to any stimuli. Occasional spontaneous movement of his leg. Data Data Last Documented VS Vital Signs Date Time Temp Pulse Resp B/P (MAP) Pulse Ox O2 Delivery O2 Flow Rate FiO2 06/12/17 16:00 99.8 06/12/17 14:46 103 22 100 Orders Orders Iv Access Insert/Monitor (06/12/17 15:46) Complete Blood Count With Diff (06/12/17 15:46) Comprehensive Metabolic Panel (06/12/17 15:46) Urinalysis - C+S If Indicated (06/12/17 15:46) Chest, Single Ap (06/12/17 ) Lactic Acid (06/12/17 15:46) Sodium Chlor 0.9% 1000 Ml Inj (Ns 1000 M (06/12/17 16:00) Famotidine Inj (Pepcid Inj) (06/12/17 16:00) Vascular Access Team Consult/P PRN (06/12/17 16:17) Vascular Poc Ultrasound (06/12/17 ) Tube, Trach Cuffless Fen:#6 Ea (06/12/17 16:25) Cannula, Disp Inner 6fr Ea (06/12/17 16:25) Urine Culture (06/12/17 16:54) Ceftriaxone Inj (Rocephin Inj) (06/12/17 17:45) Labs Laboratory Tests Test 06/12/17 16:54 06/12/17 17:21 Urine Color YELLOW Urine Turbidity HAZY Urine pH 7.5 Urine Specific [place] 1.018 Urine Protein TRACE mg/dL Urine Glucose (UA) NEG mg/dL Urine Ketones NEG mg/dL Urine Occult Blood SMALL Urine Nitrite POS Urine Bilirubin NEG Urine Urobilinogen LESS THAN 2.0 MG/DL Urine Leukocyte Esterase MOD Urine RBC 66 /hpf Urine WBC 6 /hpf Urine Amorphous Sediment RARE Urine Bacteria MANY /hpf Urine Mucus FEW /lpf Microscopic Urinalysis Comment CATH-CULTURE IND White Blood Count 10.5 TH/MM3 Red Blood Count 4.68 MIL/MM3 Hemoglobin 14.7 GM/DL Hematocrit 43.0 % Mean Corpuscular Volume 91.9 FL Mean Corpuscular Hemoglobin 31.4 PG Mean Corpuscular Hemoglobin Concent 34.2 % Red Cell Distribution Width 13.4 % Platelet Count 256 TH/MM3 Mean Platelet Volume 9.5 FL Neutrophils (%) (Auto) 76.3 % Lymphocytes (%) (Auto) 13.9 % Monocytes (%) (Auto) 9.1 % Eosinophils (%) (Auto) 0.4 % Basophils (%) (Auto) 0.3 % Neutrophils # (Auto) 8.0 TH/MM3 Lymphocytes # (Auto) 1.5 TH/MM3 Monocytes # (Auto) 1.0 TH/MM3 Eosinophils # (Auto) 0.0 TH/MM3 Basophils # (Auto) 0.0 TH/MM3 CBC Comment DIFF FINAL Differential Comment Blood Urea Nitrogen 15 MG/DL Creatinine 0.79 MG/DL Random Glucose 94 MG/DL Total Protein 8.5 GM/DL Albumin 3.9 GM/DL Calcium Level 9.1 MG/DL Alkaline Phosphatase 85 U/L Aspartate Amino Transf (AST/SGOT) 40 U/L Alanine Aminotransferase (ALT/SGPT) 63 U/L Total Bilirubin 0.3 MG/DL Sodium Level 138 MEQ/L Potassium Level 5.1 MEQ/L Chloride Level 104 MEQ/L Carbon Dioxide Level 27.3 MEQ/L Anion Gap 7 MEQ/L Estimat Glomerular Filtration Rate 140 ML/MIN Lactic Acid Level 1.3 mmol/L [facility] Medical Decision Making Medical Screen Exam Complete: Yes Emergency Medical Condition: Yes Medical Record Reviewed: Yes Differential Diagnosis Pneumonia versus UTI versus tracheal placement Narrative Course Patient is a 31-year-old male with history of anoxic brain injury, who comes in for trach replacement. Mom is also concerned that he could have pneumonia. I established, labs sent. Labs show no acute abnormalities. Urine is positive for UTI. Chest x-ray shows no evidence of pneumonia. Patient given a dose of Rocephin here. He'll be discharged with prescription for Levaquin. His nurse is comfortable taking him home. The trach was replaced by Dr. Gupta. Family is advised to return to the ED as needed for any worsening symptoms. Diagnosis Primary Impression: UTI (urinary tract infection) Qualified Codes: N30.00 - Acute cystitis without hematuria Patient Instructions: General Instructions, Urinary Tract Infection in Women ( ED) Additional Instructions: Take all the antibiotics. Follow-up with a primary care doctor. Return to the ED as needed for any worsening symptoms. Scripts Levofloxacin (Levofloxacin) 750 Mg Tablet 750 MG PO DAILY for Infection for 7 Days, #7 TAB 0 Refills Prov: So Lane MD 06/12/17 Disposition: 01 DISCHARGE HOME Condition: Stable So Lane MD Jun 12, 2017 16:29
--- NOTE | 2017-06-12 17:26 | MR ---
cc: JUSTIN ANDERSON DATE: 06/12/2017 PROCEDURE NOTE Mr. Menezes comes to the emergency room today, he was instructed to do so to change his trachea which has been there for over a month. The trache needs to be changed from a regular tracheostomy tube to a fenestrated cuffless trache a #6 Fenestrated cuffless trache, was ordered. The old tracheostomy was removed with the cuff deflated, the new tracheostomy tube was placed and secured in place. The patient's mother had stated that the patient does have a low grade temperature and he will be evaluated in the emergency room for same. He is in no respiratory distress. He is stable post trache change. Justin Anderson MD WWW/ /4:03 PM /4:55 PM
--- NOTE | 2017-06-12 17:32 | RADRPT ---
EXAM DATE/TIME: 06/12/2017 15:57 [facility] COMPARISON: CHEST SINGLE AP, April 07, 2017, 4:18. INDICATIONS : Cough and trach change. MEDICAL HISTORY : Anoxic brain injury SURGICAL HISTORY : Trachestomy ENCOUNTER: Initial ACUITY: 1 day PAIN SCORE: 0/10 LOCATION: Bilateral chest FINDINGS: A single view of the chest demonstrates haziness of the lung [place] possibly representing some respir atory motion artifact. No confluent infiltrate or effusion. Heart size is prominent but well compensa althea. Tracheostomy tube is identified with the tip at the clavicular heads. No pneumoperitoneum. CONCLUSION: 1. Haziness of the bronchopulmonary markings likely represent some mild motion artifact. No acute inf iltrate. 2. Compensated cardiomegaly. Beny Whalen MD on June 12, 2017 at 17:29 Board Certified Radiologist. This report was verified electronically.
[2017-06-12 17:39] LABS: BACTERIA, URINE MANY /hpf; BLOOD, URINE SMALL (NEG); GLUCOSE,URINE NEG (NEG); KETONE, URINE NEG (NEG); MUCUS URINE FEW /lpf (OCC); NITRITE,URINE POS (NEG); PH, URINE 7.5 (5.0-8.5); URINE COLOR YELLOW (YELLW/STRAW)
[2017-06-12 17:40] LABS: COMMENT (UR) CATH-CULTURE IND; CULTURE IF INDICATED CATH CULTURE IND
[2017-06-12 17:41] LABS: BASOPHIL % 0.3 % (0.0-2.0); EOSINOPHIL % 0.4 % (0.0-4.0); HEMO FLAGS DIFF FINAL; LYMPH % 13.9 % (9.0-44.0); LYMPHOCYTE # 1.5 TH/MM3 (1.0-4.8); MEAN CELL VOLUME 91.9 FL (80.0-100.0); MEAN CORPUSCULAR HEMOGLOBIN 31.4 PG (27.0-34.0); MEAN CORPUSCULAR HGB CONC 34.2 % (32.0-36.0); MONO % 9.1 % (0.0-8.0); NEUT % 76.3 % (16.0-70.0); PLATELET COUNT 256 TH/MM3 (150-450); RED BLOOD COUNT 4.68 MIL/MM3 (4.50-5.90); RED CELL DISTRIBUTION WIDTH 13.4 % (11.6-17.2); WHITE BLOOD COUNT 10.5 TH/MM3 (4.0-11.0)
[2017-06-12] MEDS ORDERED: cefTRIAXone INJ 1,000 MG in SODIUM CHLORIDE 0.9% INJ 100 ML IV ONE (17:45)
[2017-06-12 17:54] LABS: ALT (GPT) 63 U/L (12-78)
[2017-06-12 17:56] LABS: ALKALINE PHOSPHATASE 85 U/L (45-117); TOTAL BILIRUBIN ADULT 0.3 MG/DL (0.2-1.0)
[2017-06-12 18:05] LABS: ANION GAP 7 MEQ/L (5-15); AST (GOT) 40 U/L (15-37); BICARBONATE 27.3 MEQ/L (21.0-32.0); BLOOD UREA NITROGEN 15 MG/DL (7-18); CHLORIDE 104 MEQ/L (98-107); GLOMERULAR FILTRATION RATE 140 ML/MIN (>89); SODIUM (NA) 138 MEQ/L (136-145)
[2017-06-12 18:06] LABS: POTASSIUM 5.1 MEQ/L (3.5-5.1)
[2017-06-12] MEDS ORDERED: LEVO750T3 PO (19:00)
[2017-06-12 19:34] VITALS: O2SAT 100
[2017-06-12 19:59] VITALS: BP 118/70; PULSE 80; RESP 18; O2SAT 100
[2017-06-13 08:30] VITALS: BP 161/78; PULSE 113; RESP 20; O2SAT 99
--- NOTE | 2017-06-13 09:20 | PD ---
Data Data Last Documented VS Vital Signs Date Time Temp Pulse Resp B/P (MAP) Pulse Ox O2 Delivery O2 Flow Rate FiO2 06/13/17 08:30 113 20 161/78 (105) 99 Trach Collar 06/12/17 19:59 4.00 06/12/17 16:00 99.8 Orders Orders Iv Access Insert/Monitor (06/12/17 15:46) Complete Blood Count With Diff (06/12/17 15:46) Comprehensive Metabolic Panel (06/12/17 15:46) Urinalysis - C+S If Indicated (06/12/17 15:46) Chest, Single Ap (06/12/17 ) Lactic Acid (06/12/17 15:46) Sodium Chlor 0.9% 1000 Ml Inj (Ns 1000 M (06/12/17 16:00) Famotidine Inj (Pepcid Inj) (06/12/17 16:00) Vascular Access Team Consult/P PRN (06/12/17 16:17) Vascular Poc Ultrasound (06/12/17 ) Tube, Trach Cuffless Fen:#6 Ea (06/12/17 16:25) Cannula, Disp Inner 6fr Ea (06/12/17 16:25) Urine Culture (06/12/17 16:54) Ceftriaxone Inj (Rocephin Inj) (06/12/17 17:45) Ed Discharge Order (06/12/17 19:01) Baclofen (Lioresal) (06/13/17 09:30) Lorazepam (Ativan) (06/13/17 09:30) Labs Laboratory Tests Test 06/12/17 16:54 06/12/17 17:21 Urine Color YELLOW Urine Turbidity HAZY Urine pH 7.5 Urine Specific [place] 1.018 Urine Protein TRACE mg/dL Urine Glucose (UA) NEG mg/dL Urine Ketones NEG mg/dL Urine Occult Blood SMALL Urine Nitrite POS Urine Bilirubin NEG Urine Urobilinogen LESS THAN 2.0 MG/DL Urine Leukocyte Esterase MOD Urine RBC 66 /hpf Urine WBC 6 /hpf Urine Amorphous Sediment RARE Urine Bacteria MANY /hpf Urine Mucus FEW /lpf Microscopic Urinalysis Comment CATH-CULTURE IND White Blood Count 10.5 TH/MM3 Red Blood Count 4.68 MIL/MM3 Hemoglobin 14.7 GM/DL Hematocrit 43.0 % Mean Corpuscular Volume 91.9 FL Mean Corpuscular Hemoglobin 31.4 PG Mean Corpuscular Hemoglobin Concent 34.2 % Red Cell Distribution Width 13.4 % Platelet Count 256 TH/MM3 Mean Platelet Volume 9.5 FL Neutrophils (%) (Auto) 76.3 % Lymphocytes (%) (Auto) 13.9 % Monocytes (%) (Auto) 9.1 % Eosinophils (%) (Auto) 0.4 % Basophils (%) (Auto) 0.3 % Neutrophils # (Auto) 8.0 TH/MM3 Lymphocytes # (Auto) 1.5 TH/MM3 Monocytes # (Auto) 1.0 TH/MM3 Eosinophils # (Auto) 0.0 TH/MM3 Basophils # (Auto) 0.0 TH/MM3 CBC Comment DIFF FINAL Differential Comment Blood Urea Nitrogen 15 MG/DL Creatinine 0.79 MG/DL Random Glucose 94 MG/DL Total Protein 8.5 GM/DL Albumin 3.9 GM/DL Calcium Level 9.1 MG/DL Alkaline Phosphatase 85 U/L Aspartate Amino Transf (AST/SGOT) 40 U/L Alanine Aminotransferase (ALT/SGPT) 63 U/L Total Bilirubin 0.3 MG/DL Sodium Level 138 MEQ/L Potassium Level 5.1 MEQ/L Chloride Level 104 MEQ/L Carbon Dioxide Level 27.3 MEQ/L Anion Gap 7 MEQ/L Estimat Glomerular Filtration Rate 140 ML/MIN Lactic Acid Level 1.3 mmol/L MDM Supervised Visit with SHANE: Yes Narrative Course Called by nurse reassess patient. Patient was suctioned and develop some diaphoresis and tachycardia. Patient has severe anoxic brain injury persistent vegetative state and has had autonomic instability in the past. No significant patient emergency department for. He is being treated for urinary tract infection. Of note patient has not gotten some regular medications could be exacerbating the problem including his baclofen and Ativan. Transportation is here to get the patient. Recommend his routine baclofen and Ativan medications through the , continue antibiotics as prescribed by Dr. Sexton, outpatient follow-up. Diagnosis Primary Impression: UTI (urinary tract infection) Qualified Codes: N30.00 - Acute cystitis without hematuria Patient Instructions: General Instructions, Urinary Tract Infection in Women ( ED) Departure Forms: Tests/Procedures Additional Instruction: Take all the antibiotics. Follow-up with a primary care doctor. Return to the ED as needed for any worsening symptoms. Scripts Levofloxacin (Levofloxacin) 750 Mg Tablet 750 MG PO DAILY for Infection for 7 Days, #7 TAB 0 Refills Prov: So Lane MD 06/12/17 Disposition: 01 DISCHARGE HOME Condition: Stable Agustin Ann MD Jun 13, 2017 09:20
[2017-06-13] MEDS ORDERED: BACLOFEN 20 MG TAB G-TUBE ONE (09:30)
[2017-06-13] MEDS ORDERED: LORazepam 0.5 MG TAB G-TUBE ONE (09:30)
[2017-06-13 09:55] VITALS: PULSE 119; RESP 20; TEMP 99.7; O2SAT 100
== END 2017-06-13 09:57 | disposition home or self-care (01) ==
LOC: NEPE 14:24
DX: N30.00 Acute cystitis without hematuria (principal); R61 Generalized hyperhidrosis; R00.0 Tachycardia, unspecified; B96.1 Klebsiella pneumoniae [K. pneumoniae] as the cause of diseases classified elsewhere; G93.1 Anoxic brain damage, not elsewhere classified; F41.9 Anxiety disorder, unspecified; I10 Essential (primary) hypertension; Z43.0 Encounter for attention to tracheostomy; Z93.1 Gastrostomy status; Z86.69 Personal history of other diseases of the nervous system and sense organs
CPT/HCPCS: 71010; 80053; 81001; 83605; 85025; 87077; 87086; 87186; 96361; 96365; 96375; 99285; A7520; J0696; J7030

== ENCOUNTER 2017-06-18 22:59 | Inpatient (IN) | payer OTHER ==
[~2017-06-18] VITALS: Ht 165.1 cm; Wt 70.0 kg
[~2017-06-18 22:59] MED LIST changes: +APIX5TAB PO; +FAMO20TA2 PO; +GUAISYP4 PO; +HYDR-3800; +LEVO750T3 PO
[2017-06-18 23:07] VITALS: BP 225/119; PULSE 109; RESP 16; TEMP 101; O2SAT 94
[2017-06-18] MEDS ORDERED: SODIUM CHLOR 0.9% 1000 ML INJ 100 ML IV ONE (23:12)
[2017-06-18] MEDS ORDERED: SODIUM CHLOR 0.9% 1000 ML INJ 1,000 ML IV ONE ×2 (23:12)
--- NOTE | 2017-06-18 23:14 | PD ---
HPI Chief Complaint: Fever Time Seen by Provider: 23:11 Travel History International Travel<30 days: No Contact w/Intl Traveler<30days: No Traveled to known affect area: No History of Present Illness HPI Patient is a 31-year-old male status post severe anoxic brain injury trachea and PEG dependent and a phasic at baseline presents emergency department for evaluation of fever. He resides in a longterm and per EMS patient was recently diagnosed with ileus as well as urinary tract infection. Further history is extremely limited secondary to patient being a phasic. They did report that his jejunostomy tube was apparently clogged but that longterm staff continue to use it to give meds. PFSH Past Medical History Anxiety: Yes Cancer: No Diminished Hearing: No Endocrine: No Gastrointestinal Disorders: Yes (GASTROSTOMY ) Hypertension: Yes Immune Disorder: No Neurologic: Yes (ANOXIC BRAIN DAMAGE) Respiratory: Yes (TRACHEOSTOMY ) Seizures: Yes (POST TRAUMATIC SEIZURE) Past Surgical History Abdominal Surgery: Yes (G/J TUBE PLACED) Cardiac Surgery: No Ear Surgery: No Endocrine Surgery: No Eye Surgery: No Genitourinary Surgery: No Gynecologic Surgery: No Oral Surgery: No Thoracic Surgery: No Other Surgery: Yes (TRACHEOSTOMY ) Social History Alcohol Use: No Tobacco Use: No Substance Use: No Allergies-Medications (Allergen,Severity, Reaction): Coded Allergies: haloperidol (Unverified Adverse Reaction, Severe, Seizures, 06/18/17) Reported Meds & Prescriptions Reported Meds & Active Scripts Active Ativan (Lorazepam) 0.5 Mg Tab 0.5 Mg PO DAILY PRN Ativan (Lorazepam) 1 Mg Tab 1 Mg G-TUBE Q4H PRN Bisacodyl EC (Bisacodyl) 5 Mg Tabec 5 Mg PO DAILY PRN Baclofen 20 Mg Tab 20 Mg G-TUBE TID Reported Potassium Chloride Liq (Potassium Chloride) 20 Meq/15 Ml Soln 20 Meq PO BID Ranitidine (Ranitidine HCl) 150 Mg Tab 150 Mg PO BID Oxycodone (Oxycodone HCl) 5 Mg Tab 5 Mg PO Q6H PRN Norvasc (Amlodipine Besylate) 10 Mg Tab 10 Mg PO DAILY Lopressor (Metoprolol Tartrate) 50 Mg Tab 50 Mg PO BID Keppra (Levetiracetam) 1,000 Mg Tab 1,000 Mg PO BID Augmentin (Amoxicillin-Clavulanate) 875-125 Mg Tab 1 Tab PO BID 10 Days Hydralazine (Hydralazine HCl) 100 Mg Tab 50 Mg PO Q8HR Take with meals Hyoscyamine (Hyoscyamine Sulfate) 0.125 Mg Tab 0.25 Mg PO Q4H Guaifenesin AC Liq (Guaifenesin-Codeine Liq) 100-10 Mg/5 Ml Syrp 10 Ml PO Q6H PRN Famotidine 20 Mg Tab 20 Mg PO DAILY Eliquis (Apixaban) 5 Mg Tab 5 Mg PO BID Tylenol (Acetaminophen) 325 Mg Tab 650 Mg PO Q6H PRN Duoneb (Ipratropium-Albuterol Neb) 0.5-2.5 Mg/3 Ml Neb 1 Nebule INH Q4HR NEB Atropine Opth Drops 1% Soln 1 Drop SL Q12HR PRN Claritin Liq (Loratadine) 5 Mg/5 Ml Liq 5 Mg G-TUBE DAILY Review of Systems ROS Limitations: Altered Mental Status Physical Exam Narrative GENERAL: Well-developed well-nourished, a phasic. SKIN: No rash, no skin breakdown posteriorly after discussion with nursing. HEAD: Atraumatic. Normocephalic. EYES: Pupils equal and round. No scleral icterus. No injection or drainage. ENT: No nasal bleeding or discharge. Mucous membranes pink and moist. TMs clear bilaterally, tracheostomy site clean dry and intact. NECK: Trachea midline. No JVD. CARDIOVASCULAR: Regular rate and rhythm. No murmur appreciated. RESPIRATORY: No accessory muscle use. Clear to auscultation. Breath sounds equal bilaterally. GASTROINTESTINAL: Abdomen soft, non-tender, nondistended. Hepatic and splenic margins not palpable. Jejunostomy tube initially clogged but with minimal effort could be aspirated and flushed. GENITOURINARY: No rash no wound, Ospina catheter in place MUSCULOSKELETAL: No obvious deformities. No clubbing. No cyanosis. No edema. NEUROLOGICAL: Eyes open but not alert, does not follow commands, tonic contractures of the right upper and bilateral lower extremities, occasional clonus observed. Data Data Last Documented VS Vital Signs Date Time Temp Pulse Resp B/P (MAP) Pulse Ox O2 Delivery O2 Flow Rate FiO2 06/18/17 23:57 99 Trach Collar 28 06/18/17 23:22 87 18 184/91 (122) 5.00 06/18/17 23:07 101.0 Orders Orders Sepsis Workup Initiated (06/18/17 ) Complete Blood Count With Diff (06/18/17 23:12) Comprehensive Metabolic Panel (06/18/17 23:12) Prothrombin Time / Inr (Pt) (06/18/17 23:12) Act Partial Throm Time (Ptt) (06/18/17 23:12) Lactic Acid Sepsis Protocol (06/18/17 23:12) Magnesium (Mg) (06/18/17 23:12) Phosphorus (Po4) (06/18/17 23:12) Lipase (06/18/17 23:12) Ckmb (Isoenzyme) Profile (06/18/17 23:12) Troponin I (06/18/17 23:12) Urinalysis - C+S If Indicated (06/18/17 23:12) Influenzae A/B Antigen (06/18/17 23:12) Blood Culture (06/18/17 23:12) Blood Glucose (06/18/17 23:12) Ecg Monitoring (06/18/17 23:12) Iv Access Insert/Monitor (06/18/17 23:12) Oximetry (06/18/17 23:12) Oxygen Administration (06/18/17 23:12) Ct Abd/Pel W Iv Contrast(Rout) (06/18/17 23:12) Sodium Chlor 0.9% 1000 Ml Inj (Ns 1000 M (06/18/17 23:12) Sodium Chlor 0.9% 1000 Ml Inj (Ns 1000 M (06/18/17 23:12) Sodium Chlor 0.9% 1000 Ml Inj (Ns 1000 M (06/18/17 23:12) Chest, Single Ap (06/18/17 ) CKMB (06/18/17 23:25) CKMB% (06/18/17 23:25) Vancomycin Inj (Vancomycin Inj) (06/19/17 00:45) Piperacil-Tazo 4.5 Gm Premix (Zosyn 4.5 (06/19/17 00:45) Morphine Inj (Morphine Inj) (06/19/17 01:15) Acetaminophen 650 Mg/20 Ml Liq (Tylenol (06/19/17 01:45) Iohexol 350 Inj (Omnipaque 350 Inj) (06/19/17 02:59) Urine Culture (06/19/17 03:15) Admit Order (Ed Use Only) (06/19/17 ) Labs Laboratory Tests Test 06/18/17 23:25 06/19/17 03:15 White Blood Count 15.7 TH/MM3 Red Blood Count 4.94 MIL/MM3 Hemoglobin 15.1 GM/DL Hematocrit 44.7 % Mean Corpuscular Volume 90.6 FL Mean Corpuscular Hemoglobin 30.5 PG Mean Corpuscular Hemoglobin Concent 33.7 % Red Cell Distribution Width 13.2 % Platelet Count 311 TH/MM3 Mean Platelet Volume 9.3 FL Neutrophils (%) (Auto) 86.1 % Lymphocytes (%) (Auto) 5.4 % Monocytes (%) (Auto) 7.3 % Eosinophils (%) (Auto) 0.1 % Basophils (%) (Auto) 1.1 % Neutrophils # (Auto) 13.6 TH/MM3 Lymphocytes # (Auto) 0.8 TH/MM3 Monocytes # (Auto) 1.1 TH/MM3 Eosinophils # (Auto) 0.0 TH/MM3 Basophils # (Auto) 0.2 TH/MM3 CBC Comment AUTO DIFF Differential Comment AUTO DIFF CONFIRMED Platelet Estimate NORMAL Platelet Morphology Comment ENLARGED Prothrombin Time 11.1 SEC Prothromb Time International Ratio 1.1 RATIO Activated Partial Thromboplast Time 24.5 SEC Blood Urea Nitrogen 15 MG/DL Creatinine 1.02 MG/DL Random Glucose 102 MG/DL Total Protein 9.1 GM/DL Albumin 4.3 GM/DL Calcium Level 9.6 MG/DL Phosphorus Level 3.0 MG/DL Magnesium Level 2.2 MG/DL Alkaline Phosphatase 100 U/L Aspartate Amino Transf (AST/SGOT) 39 U/L Alanine Aminotransferase (ALT/SGPT) 69 U/L Total Bilirubin 0.3 MG/DL Sodium Level 140 MEQ/L Potassium Level 4.0 MEQ/L Chloride Level 105 MEQ/L Carbon Dioxide Level 27.1 MEQ/L Anion Gap 8 MEQ/L Estimat Glomerular Filtration Rate 104 ML/MIN Lactic Acid Level 2.3 mmol/L 1.3 mmol/L Total Creatine Kinase 1530 U/L Creatine Kinase MB 6.3 NG/ML Creatine Kinase MB % 0.4 % Troponin I 0.02 NG/ML Lipase 150 U/L Urine Color YELLOW Urine Turbidity HAZY Urine pH 6.5 Urine Specific [place] 1.023 Urine Protein 100 mg/dL Urine Glucose (UA) NEG mg/dL Urine Ketones 10 mg/dL Urine Occult Blood NEG Urine Nitrite NEG Urine Bilirubin NEG Urine Urobilinogen 2.0 MG/DL Urine Leukocyte Esterase NEG Urine RBC 1 /hpf Urine WBC 2 /hpf Urine Amorphous Sediment RARE Urine Bacteria OCC /hpf Urine Hyaline Casts 1 /lpf Urine Mucus FEW /lpf Microscopic Urinalysis Comment CATH-CULTURE IND MDM Medical Decision Making Medical Screen Exam Complete: Yes Emergency Medical Condition: Yes Differential Diagnosis Sepsis, UTI, pneumonia, lecture led abnormality. Narrative Course Patient roomed in emergency department, vague reports of possible ileus from the longterm, CT scan shows no evidence of such, patient does have bowel sounds, after CAT scan he had one episode of emesis, continues to saturate well. Evidence of pneumonia and imaging studies the patient was started on vancomycin and Zosyn for healthcare associated pneumonia. Mother also arrived and stated that she thought the patient was in pain so morphine was given at her request. Sepsis protocol initiated lactic acid initially minimally elevated is improving with fluids. Hemodynamically stable the patient was discussed with the hospitalist service for admission. Diagnosis Primary Impression: Sepsis Additional Impression: Healthcare-associated pneumonia Admitting Information Admitting Physician Requests: Admit Condition: Peter Horner MD Jun 18, 2017 23:14
[2017-06-18 23:15] VITALS: O2SAT 94
[2017-06-18 23:22] VITALS: BP 184/91; PULSE 87; RESP 18; O2SAT 100
[2017-06-18 23:38] LABS: AUTOMATED NEUTROPHIL # 13.6 TH/MM3 (1.8-7.7); BASOPHIL # 0.2 TH/MM3 (0-0.2); BASOPHIL % 1.1 % (0.0-2.0); EOSINOPHIL % 0.1 % (0.0-4.0); HEMATOCRIT 44.7 % (39.0-51.0); LYMPH % 5.4 % (9.0-44.0); LYMPHOCYTE # 0.8 TH/MM3 (1.0-4.8); MEAN CELL VOLUME 90.6 FL (80.0-100.0); MEAN CORPUSCULAR HEMOGLOBIN 30.5 PG (27.0-34.0); MEAN CORPUSCULAR HGB CONC 33.7 % (32.0-36.0); MONO % 7.3 % (0.0-8.0); NEUT % 86.1 % (16.0-70.0); PLATELET COUNT 311 TH/MM3 (150-450); RED BLOOD COUNT 4.94 MIL/MM3 (4.50-5.90); RED CELL DISTRIBUTION WIDTH 13.2 % (11.6-17.2); WHITE BLOOD COUNT 15.7 TH/MM3 (4.0-11.0)
[2017-06-18 23:39] LABS: HEMO FLAGS AUTO DIFF
[2017-06-18 23:50] LABS: APTT (PATIENT) 24.5 SEC (24.3-30.1); INTERNATIONAL NORMALIZED RATIO 1.1 RATIO; PROTHROMBIN TIME - PATIENT 11.1 SEC (9.8-11.6)
[2017-06-18 23:53] LABS: ANION GAP 8 MEQ/L (5-15); AST (GOT) 39 U/L (15-37); BICARBONATE 27.1 MEQ/L (21.0-32.0); BLOOD UREA NITROGEN 15 MG/DL (7-18); CHLORIDE 105 MEQ/L (98-107); GLOMERULAR FILTRATION RATE 104 ML/MIN (>89); MAGNESIUM 2.2 MG/DL (1.5-2.5); SODIUM (NA) 140 MEQ/L (136-145)
[2017-06-18 23:54] LABS: ALT (GPT) 69 U/L (12-78)
[2017-06-18 23:57] VITALS: O2SAT 99
[2017-06-19] VITALS (8 sets, daily range): BP systolic 101–141; BP diastolic 50–80; PULSE 52–89; RESP 16–22; TEMP 97–97.8; O2SAT 96–100
[2017-06-19 00:08] LABS: ALKALINE PHOSPHATASE 100 U/L (45-117); CREATINE KINASE 1530 U/L (39-308); TOTAL BILIRUBIN ADULT 0.3 MG/DL (0.2-1.0)
[2017-06-19 00:20] LABS: CKMB 6.3 NG/ML (0.5-3.6)
--- NOTE | 2017-06-19 00:41 | RADRPT ---
EXAM DATE/TIME: 06/18/2017 23:28 [facility] COMPARISON: CHEST SINGLE AP, June 12, 2017, 15:57. INDICATIONS : Fever. MEDICAL HISTORY : Anoxic brain injury SURGICAL HISTORY : Tracheostomy ENCOUNTER: Initial ACUITY: 1 day PAIN SCORE: Non-responsive. LOCATION: Bilateral chest FINDINGS: A single view of the chest demonstrates the lungs to be symmetrically aerated without evidence of mas s, infiltrate or effusion. The cardiomediastinal contours are unremarkable. Osseous structures are intact. A tracheostomy in place. CONCLUSION: The lungs are clear. Zachariah Jiménez MD on June 19, 2017 at 0:39 Board Certified Radiologist. This report was verified electronically.
[2017-06-19] MEDS ORDERED: PIPERACIL-TAZO 4.5 GM PREMIX 100 ML IV ONE (00:45)
[2017-06-19] MEDS ORDERED: VANCOMYCIN INJ 1,000 MG in SODIUM CHLOR 0.9% 250 ML INJ 250 ML IV ONE ×2 (00:45→05:00)
[2017-06-19] MEDS ORDERED: POTA10SO12 PO (01:08)
[2017-06-19] MEDS ORDERED: AUGM875T3 PO (01:08)
[2017-06-19] MEDS ORDERED: OXYC-392 PO (01:08)
[2017-06-19] MEDS ORDERED: AMLO10 PO (01:08)
[2017-06-19] MEDS ORDERED: KEPP10002 PO (01:08)
[2017-06-19] MEDS ORDERED: HYOS1TAB9 PO (01:08)
[2017-06-19] MEDS ORDERED: HYDR-3801 PO (01:08)
[2017-06-19] MEDS ORDERED: METO-309 PO (01:08)
[2017-06-19] MEDS ORDERED: RANI150T PO (01:08)
[2017-06-19] MEDS ORDERED: MORPHINE SULFATE 4 MG/ML INJ IV PUSH ONE (01:15)
[2017-06-19 01:18] LABS: PLATELET ESTIMATE SMEAR NORMAL (NORMAL); PLATELET MORPHOLOGY ENLARGED (NORMAL); SCAN/DIFF AUTO DIFF CONFIRMED
[2017-06-19 01:32] LABS: LACTIC ACID GHOST NOT REPORTABLE
[2017-06-19] MEDS ORDERED: ACETAMINOPHEN 650 MG/20.3 ML UDC PEG ONE (01:45)
[2017-06-19] MEDS ORDERED: IOHEXOL 350 MG/ML 10 ML VIAL (for RAD DIAG) IVCONTRAST ONE (02:59)
[2017-06-19 03:44] LABS: BACTERIA, URINE OCC /hpf; BLOOD, URINE NEG (NEG); COMMENT (UR) CATH-CULTURE IND; CULTURE IF INDICATED CATH CULTURE IND; GLUCOSE,URINE NEG (NEG); HYALINE CAST, URINE 1 /lpf (RARE); KETONE, URINE 10 mg/dL (NEG); MUCUS URINE FEW /lpf (OCC); NITRITE,URINE NEG (NEG); PH, URINE 6.5 (5.0-8.5); URINE COLOR YELLOW (YELLW/STRAW)
--- NOTE | 2017-06-19 04:07 | RADRPT ---
EXAM DATE/TIME: 06/19/2017 02:37 [facility] COMPARISON: CT ABDOMEN & PELVIS W CONTRAST, March 30, 2017, 15:46. INDICATIONS : Abdomen pain. IV CONTRAST: 100 cc Omnipaque 350 (iohexol) IV ORAL CONTRAST: No oral contrast ingested. RADIATION DOSE: 9.96 CTDIvol (mGy) MEDICAL HISTORY : Hypertension. Seizures. anoxic brain injury. SURGICAL HISTORY : Gastrostomy, G/J Tube ENCOUNTER: Initial ACUITY: 1 day PAIN SCALE: 5/10 LOCATION: Bilateral abdomen. TECHNIQUE: Volumetric scanning of the abdomen and pelvis was performed. Using automated exposure control and ad justment of the mA and/or kV according to patient size, radiation dose was kept as low as reasonably achievable to obtain optimal diagnostic quality images. DICOM format image data is available electro nically for review and comparison. FINDINGS: Scan is performed of the patient's arms in the [id number], creating some streak artifact in the up per abdomen. LOWER LUNGS: Non-consolidative infiltrates in the right costophrenic angle. No evidence of pleural effusion. LIVER: Homogeneous density without lesion. There is no dilation of the biliary tree. No calcified gallston es. SPLEEN: Normal size without lesion. PANCREAS: Within normal limits. KIDNEYS: Normal in size and shape. There is no mass, stone or hydronephrosis. ADRENAL GLANDS: Within normal limits. VASCULAR: There is no aortic aneurysm. BOWEL/MESENTERY: Percutaneous gastrostomy with jejunal tube in place, similar to prior examination March 2017. No dilated loops of small or large bowel. A mild amount of stool in the left colon. No evidence of fr ee fluid. ABDOMINAL WALL: Within normal limits. RETROPERITONEUM: There is no lymphadenopathy. BLADDER: No wall thickening or mass. REPRODUCTIVE: Within normal limits. INGUINAL: There is no lymphadenopathy or hernia. MUSCULOSKELETAL: Within normal limits for patient age. CONCLUSION: 1. No dilated loops of small large bowel. 2. Gastrostomy and jejunal tube in place. 3. There is a new non-consolidative infiltrate in the right costophrenic angle. Zachariah Jiménez MD on June 19, 2017 at 4:02 Board Certified Radiologist. This report was verified electronically.
[2017-06-19] MEDS ORDERED: RESP: ALBUTEROL 2.5 MG/IPRATROPIUM 0.5 MG NEB (PRN) INH (05:00)
[2017-06-19] MEDS ORDERED: ACETAMINOPHEN 650 MG SUPP RECTAL PRN (05:00)
[2017-06-19] MEDS ORDERED: SODIUM CHLORIDE 0.9% FLUSH 10 ML FLUSH IV FLUSH PRN (05:00)
[2017-06-19] MEDS ORDERED: Vancomycin Consult Pharmacy 1 EA OTHER SCH (05:00)
[2017-06-19] MEDS ORDERED: PIPERACIL-TAZO 4.5 GM PREMIX 100 ML IV SCH (05:00)
[2017-06-19] MEDS ORDERED: ONDANSETRON HCL 4 MG/2 ML VIAL IV PUSH PRN (05:00)
[2017-06-19] MEDS ORDERED: BISACODYL EC 5 MG TABEC PO PRN (05:15)
--- NOTE | 2017-06-19 05:23 | HHI.HP ---
[facility] Primary [facility] Physician Jm Torres MD Admission Diagnosis Pneumonia/Sepsis. Diagnoses: Travel History International Travel<30 Days: No Contact w/Intl Traveler <30 Da: No Traveled to Known Affected Are: No History of Present Illness 31-year-old male with a past medical history of traumatic brain injury and persistent vegetative state, status post trach/PEG, history of DVT on Eliquis, recurrent pneumonia/sepsis and seizure disorder [facility] his [facility] via [facility] for evaluation of a fever. The patient was recently treated for urinary tract infection. He also was recently diagnosed with ileus. Chest x- ray within normal limits. CT of the abdomen/pelvis showed no dilated loops of bowel but was significant for a new nonconsolidated infiltrate in the right costophrenic angle. WBC 15.7. Lactic acid initially 2.3. Febrile to 101.0 in the emergency department. Lab values also significant for a CK of 1530. Review of Systems Unable to obtain secondary to patient's clinical condition Past Family Social History Past Medical History (Obtained from medical records review) Traumatic brain injury with persistent vegetative state History of DVT on Coumadin Recurrent pneumonia/sepsis Seizure disorder Past Surgical History Tracheostomy PEG placement Reported Medications Reported Meds & Active Scripts Active Ativan (Lorazepam) 0.5 Mg Tab 0.5 Mg PO DAILY PRN Ativan (Lorazepam) 1 Mg Tab 1 Mg G-TUBE Q4H PRN Bisacodyl EC (Bisacodyl) 5 Mg Tabec 5 Mg PO DAILY PRN Baclofen 20 Mg Tab 20 Mg G-TUBE TID Reported Potassium Chloride Liq (Potassium Chloride) 20 Meq/15 Ml Soln 20 Meq PO BID Ranitidine (Ranitidine HCl) 150 Mg Tab 150 Mg PO BID Oxycodone (Oxycodone HCl) 5 Mg Tab 5 Mg PO Q6H PRN Norvasc (Amlodipine Besylate) 10 Mg Tab 10 Mg PO DAILY Lopressor (Metoprolol Tartrate) 50 Mg Tab 50 Mg PO BID Keppra (Levetiracetam) 1,000 Mg Tab 1,000 Mg PO BID Augmentin (Amoxicillin-Clavulanate) 875-125 Mg Tab 1 Tab PO BID 10 Days Hydralazine (Hydralazine HCl) 100 Mg Tab 50 Mg PO Q8HR Take with meals Hyoscyamine (Hyoscyamine Sulfate) 0.125 Mg Tab 0.25 Mg PO Q4H Guaifenesin AC Liq (Guaifenesin-Codeine Liq) 100-10 Mg/5 Ml Syrp 10 Ml PO Q6H PRN Famotidine 20 Mg Tab 20 Mg PO DAILY Eliquis (Apixaban) 5 Mg Tab 5 Mg PO BID Tylenol (Acetaminophen) 325 Mg Tab 650 Mg PO Q6H PRN Duoneb (Ipratropium-Albuterol Neb) 0.5-2.5 Mg/3 Ml Neb 1 Nebule INH Q4HR NEB Atropine Opth Drops 1% Soln 1 Drop SL Q12HR PRN Claritin Liq (Loratadine) 5 Mg/5 Ml Liq 5 Mg G-TUBE DAILY Allergies: Coded Allergies: haloperidol (Unverified Adverse Reaction, Severe, Seizures, 06/18/17) Family History No family history of diabetes mellitus or CAD Social History No alcohol, tobacco or drugs Physical Exam Vital Signs Vital Signs Date Time Temp Pulse Resp B/P (MAP) Pulse Ox O2 Delivery O2 Flow Rate FiO2 06/18/17 23:57 99 Trach Collar 28 06/18/17 23:22 87 18 184/91 (122) 100 Trach Collar 5.00 06/18/17 23:15 94 Trach Collar 5.00 06/18/17 23:12 5.00 06/18/17 23:07 101.0 109 16 225/119 (154) 94 Physical Exam GENERAL: male lying in bed, vegetative state at baseline SKIN: No rashes, ecchymoses or lesions. Cool and dry. HEAD: Atraumatic. Normocephalic. No temporal or scalp tenderness. EYES: Pupils equal round and reactive. No scleral icterus. No injection or drainage. ENT: Nose without bleeding, purulent drainage or septal hematoma. Throat without erythema, tonsillar hypertrophy or exudate. Uvula midline. Airway patent. NECK: Trachea midline. No JVD or lymphadenopathy. Supple, nontender, no meningeal signs. CARDIOVASCULAR: Regular rate and rhythm without murmurs, gallops, or rubs. RESPIRATORY: Clear to auscultation in the anterior [place]. GASTROINTESTINAL: Abdomen soft, non-tender, nondistended. No hepato-splenomegaly , or palpable masses. MUSCULOSKELETAL: Extremities without clubbing, cyanosis, or edema. No joint tenderness, effusion, or edema noted. NEUROLOGICAL: Nonverbal at baseline. Laboratory Laboratory Tests Test 06/18/17 23:25 06/19/17 03:15 White Blood Count 15.7 Red Blood Count 4.94 Hemoglobin 15.1 Hematocrit 44.7 Mean Corpuscular Volume 90.6 Mean Corpuscular Hemoglobin 30.5 Mean Corpuscular Hemoglobin Concent 33.7 Red Cell Distribution Width 13.2 Platelet Count 311 Mean Platelet Volume 9.3 Neutrophils (%) (Auto) 86.1 Lymphocytes (%) (Auto) 5.4 Monocytes (%) (Auto) 7.3 Eosinophils (%) (Auto) 0.1 Basophils (%) (Auto) 1.1 Neutrophils # (Auto) 13.6 Lymphocytes # (Auto) 0.8 Monocytes # (Auto) 1.1 Eosinophils # (Auto) 0.0 Basophils # (Auto) 0.2 CBC Comment AUTO DIFF Differential Comment AUTO DIFF CONFIRMED Platelet Estimate NORMAL Platelet Morphology Comment ENLARGED Prothrombin Time 11.1 Prothromb Time International Ratio 1.1 Activated Partial Thromboplast Time 24.5 Blood Urea Nitrogen 15 Creatinine 1.02 Random Glucose 102 Total Protein 9.1 Albumin 4.3 Calcium Level 9.6 Phosphorus Level 3.0 Magnesium Level 2.2 Alkaline Phosphatase 100 Aspartate Amino Transf (AST/SGOT) 39 Alanine Aminotransferase (ALT/SGPT) 69 Total Bilirubin 0.3 Sodium Level 140 Potassium Level 4.0 Chloride Level 105 Carbon Dioxide Level 27.1 Anion Gap 8 Estimat Glomerular Filtration Rate 104 Lactic Acid Level 2.3 1.3 Total Creatine Kinase 1530 Creatine Kinase MB 6.3 Creatine Kinase MB % 0.4 Troponin I 0.02 Lipase 150 Urine Color YELLOW Urine Turbidity HAZY Urine pH 6.5 Urine Specific [place] 1.023 Urine Protein 100 Urine Glucose (UA) NEG Urine Ketones 10 Urine Occult Blood NEG Urine Nitrite NEG Urine Bilirubin NEG Urine Urobilinogen 2.0 Urine Leukocyte Esterase NEG Urine RBC 1 Urine WBC 2 Urine Amorphous Sediment RARE Urine Bacteria OCC Urine Hyaline Casts 1 Urine Mucus FEW Microscopic Urinalysis Comment CATH-CULTURE IND Date/Time Source Procedure Growth Status 06/18/17 23:25 Blood Peripheral Aerobic Blood Culture Pending Received 06/18/17 23:25 Blood Peripheral Anaerobic Blood Culture Pending Received 06/19/17 03:15 Nasal Aspirate Influenza Types A,B Antigen (DEMETRIUS) - Final NEGATIVE FOR FLU A AND B ANTIGEN.... Complete 06/19/17 03:15 Urine Catheterized Urine Urine Culture Pending Received Result Diagram: 06/18/17 2325 06/18/17 2325 Septic Shock Reassessment Septic shock perfusion: reassessment completed Caprini VTE Risk Assessment Caprini VTE Risk Assessment: Mod/High Risk (score >= 2) Caprini Risk Assessment Model Point Value = 1 Point Value = 2 Point Value = 3 Point Value = 5 Age 41-60 Minor surgery BMI > 25 kg/m2 Swollen legs Varicose veins or History of unexplained or recurrent spontaneous Oral contraceptives or hormone replacement Sepsis (< 1 month) Serious lung disease, including pneumonia (< 1 month) Abnormal pulmonary function Acute myocardial infarction Congestive heart failure (< 1 month) History of inflammatory bowel disease Medical patient at bed rest Age 61-74 Arthroscopic surgery Major open surgery (> 45 min) Laparoscopic surgery (> 45 min) Malignancy Confined to bed (> 72 hours) Immobilizing plaster cast Central venous access Age >= 75 History of VTE Family history of VTE Factor V Leiden Prothrombin [id number] Lupus anticoagulant Anticardiolipin antibodies Elevated serum homocysteine Heparin-induced thrombocytopenia Other congenital or acquired thrombophilia Stroke (< 1 month) Elective arthroplasty Hip, pelvis, or leg fracture Acute spinal cord injury (< 1 month) Prophylaxis Regimen Total Risk Factor Score Risk Level Prophylaxis Regimen 0-1 Low Early ambulation 2 Moderate Order ONE of the following: *Sequential Compression Device (SCD) *Heparin 5000 units SQ BID 3-4 Higher Order ONE of the following medications: *Heparin 5000 units SQ TID *Enoxaparin/Lovenox 40 mg SQ daily (WT < 150 kg, CrCl > 30 mL/min) *Enoxaparin/Lovenox 30 mg SQ daily (WT < 150 kg, CrCl > 10-29 mL/min) *Enoxaparin/Lovenox 30 mg SQ BID (WT < 150 kg, CrCl > 30 mL/min) AND/OR *Sequential Compression Device (SCD) 5 or more Highest Order ONE of the following medications: *Heparin 5000 units SQ TID (Preferred with Epidurals) *Enoxaparin/Lovenox 40 mg SQ daily (WT < 150 kg, CrCl > 30 mL/min) *Enoxaparin/Lovenox 30 mg SQ daily (WT < 150 kg, CrCl > 10-29 mL/min) *Enoxaparin/Lovenox 30 mg SQ BID (WT < 150 kg, CrCl > 30 mL/min) AND *Sequential Compression Device (SCD) Assessment and Plan Assessment and Plan Assessment/plan: 1. Sepsis/HCAP/chronic respiratory failure with trach CT of the abdomen and pelvis significant for new consolidative infiltrate in the right costophrenic angle Patient with leukocytosis, elevated lactic acid Vanc/Zosyn Patient with history of Pseudomonas and MRSA in his sputum Infectious disease consulted, appreciate recommendations Pulmonary consulted, patient with chronic trach, appreciate recommendations Supplemental oxygen Duo nebs 2. Rhabdomyolysis CK 1530, creatinine 1.02 Aggressive IV fluid hydration Monitor renal function Recheck CK this am 3. Seizure disorder No seizures reported Continue Keppra 4. History of DVT Continue Jelena LEMUS Dietary consultation to assist with tube feeds NS at 200 cc/hr Monitor electrolytes Eliquis Case discussed with ER physician at length Physician Certification 2 Midnight Certification Type: Admission for Inpatient Services Order for Inpatient Services The services are ordered in accordance with Medicare regulations or non- Medicare payer requirements, as applicable. In the case of services not specified as inpatient-only, they are appropriately provided as inpatient services in accordance with the 2-midnight benchmark. Estimated LOS (days): 2 2 days is the estimated time the patient will need to remain in the hospital, assuming treatment plan goals are met and no additional complications. Post-Hospital Plan: [facility] Nela Colon MD Jun 19, 2017 05:23
[2017-06-19] MEDS: HYOSCYAMINE 0.125 MG TAB PO SCH ×5 (05:30→20:17)
[2017-06-19] MEDS ORDERED: VANCOMYCIN 1,500 MG/NS 500 ML IV ONE ×2 (06:00)
[2017-06-19] MEDS: hydrALAZINE HCL 100 MG TAB PO SCH ×3 (06:00→22:00)
[2017-06-19] MEDS: SODIUM CHLOR 0.9% 1000 ML INJ 1,000 ML IV SCH ×4 (07:42→20:40)
[2017-06-19] MEDS ORDERED: levETIRAcetam 500 MG TAB PO SCH (09:00)
[2017-06-19] MEDS: SODIUM CHLORIDE 0.9% FLUSH 10 ML FLUSH IV FLUSH SCH ×2 (09:00→20:17)
[2017-06-19] MEDS ORDERED: PILL SPLITTER OTHER PRN (09:15)
[2017-06-19] MEDS: RESP: ALBUTEROL 2.5 MG/IPRATROPIUM 0.5 MG NEB (SCH) INH ×3 (09:44→21:00)
[2017-06-19] MEDS: LORATADINE 10 MG TAB G-TUBE SCH (09:47)
[2017-06-19] MEDS: APIXABAN 5 MG TABLET PO SCH ×2 (09:48→20:17)
[2017-06-19] MEDS: BACLOFEN 20 MG TAB G-TUBE SCH ×3 (09:48→16:35)
[2017-06-19] MEDS: FAMOTIDINE 20 MG TAB PO SCH (09:48)
[2017-06-19] MEDS: METOPROLOL TARTRATE 50 MG TAB PO SCH ×2 (09:49→19:48)
[2017-06-19] MEDS: PIPERACIL-TAZO 4.5 GM PREMIX 100 ML IV SCH ×2 (10:51→16:34)
[2017-06-19] MEDS ORDERED: VANCOMYCIN INJ 1,500 MG in SODIUM CHLORID 0.9% 500 ML INJ 500 ML IV SCH (11:00)
[2017-06-19] MEDS ORDERED: VANCOMYCIN INJ 1,250 MG in SODIUM CHLOR 0.9% 250 ML INJ 250 ML IV SCH (11:00)
--- NOTE | 2017-06-19 13:34 | MB ---
cc: Carlos NELSON DATE OF CONSULTATION 06/19/2017 HISTORY OF PRESENT ILLNESS Mr. Andersen is a 31-year-old black male who has a traumatic brain injury. All of the information I am recording here is from his record. There is no one at the bedside and the patient is severely neurologically impaired. He has had now his fourth admission in the last 4 months here, typically presents with infection either pulmonary or urinary tract. He was [facility] from [facility] yesterday with a temperature of 101, suspected recurrent infection. On presentation to the emergency room his temperature was 101, blood pressure was markedly elevated at 225/120, pulse was 110, O2 sat was 94% on 5 liters. White count was 15.7 with predominant neutrophils. Multiple cultures are pending including sputum, urine and blood. The initial on the blood is negative. His chest x-ray was negative but his abdomen was distended so he had a CT of the abdomen which was essentially unremarkable, although he had a very minimal patchy density at the right costophrenic angle. No confluent infiltrates. No fluid this could be just an area of minimal atelectasis. He has had pneumonias in the past. I reviewed the infectious disease consultation from the 03/30 admission and apparently he does have a history of Pseudomonas in his sputum before and has had MRSA. PAST MEDICAL HISTORY 1. Recurrent infections. 2. Chronic tracheostomy for some period of time - I do not find a date for the original injury. 3. He has a history of upper extremity DVT for which he has been anticoagulated. 4. Diabetes. 5. History of pancreatitis. 6. G-tube insertion. 7. Continuous G-tube feedings. 8. Previous hemoptysis evaluated by bronchoscopy, apparently negative. DRUG ALLERGIES HALOPERIDOL. MEDICATIONS Reviewed in the EMR. SOCIAL HISTORY, FAMILY HISTORY Unknown to me. PHYSICAL EXAMINATION GENERAL: A young black male, appears comfortable at rest, currently afebrile. VITAL SIGNS: Blood pressure 140/70, pulse is 70, respirations are 16-18 nonlabored. He is on a 28% trache collar with a sat of 96-99%. EYES: Sclerae anicteric. NECK: The tracheostomy looks clean, #6, fenestrated, cuffless tube probably from secretions at this point. No purulent secretions around the tube. LUNGS: The patient has a good cough. Very minimal congestion. No wheezing. CARDIOVASCULAR: No harsh murmur. ABDOMEN: Soft. EXTREMITIES: No significant edema. DISCUSSION Mr. Melvin presents with a temperature of 101 with lung and urinary tract suspected sources of infection. Certainly culturing of his sputum and beginning him on some aerosol to clear the secretions would be helpful. He has been started on Zosyn and vancomycin based on previous cultures and Infectious Disease was asked to see him. The findings in the lung on the CT scan are actually very minimal. He has no dense consolidation or fluid and if in fact the fever came from this hopefully a 5-7 day course of antibiotics would help to clear that. We will continue his aerosol treatments and check a sputum culture. Further diagnostic and/or therapeutic intervention will depend on his ongoing clinical course. R. MD BASIL Heath/TATIANA /12:57 PM /1:11 PM
[2017-06-19] MEDS: levETIRAcetam 500 MG/5 ML UDC G-TUBE SCH ×2 (14:29→20:17)
--- NOTE | 2017-06-19 19:24 | PD.ID.CON ---
History of Present Illness Service ID [facility] Reason for Consult sepsis, h/o MDROs Primary Care Physician Jm Torres MD Diagnoses: History of Present Illness 31 yo male well known to me from multiple prior admissions , h/o anoxic encephalopathy essentially in persistent vegetatiive state He [facility] for evaluation of a fever. The patient was recently treated for urinary tract infection. CT of the abdomen/pelvis showed no dilated loops of bowel but was significant for a new non consolidated infiltrate in the right costophrenic angle. WBC 15.7. Lactic acid initially 2.3. Febrile to 101.0 i CK of 1530. UA w/o pyurina, clx P b;lood clx negative @ 1 day sputum has moderate WBC, no org's on Gstain Flu test was negative Pt recently had h/o UTI 2/2 ESBL+ Kleb pneumo had PNA 2/2 MRSA No diarrhea Review of Systems ROS Limitations: Unresponsive Past Family Social History Allergies: Coded Allergies: haloperidol (Unverified Adverse Reaction, Severe, Seizures, 06/18/17) Past Medical History (Obtained from medical records review) Traumatic brain injury with persistent vegetative state History of DVT on Coumadin Recurrent pneumonia/sepsis Seizure disorder Past Surgical History Tracheostomy PEG placement Active Ordered Medications Medications where reviewed in EMR Antibiotics Include: vanco zoilenen Family History No family history of diabetes mellitus or CAD Social History No alcohol, tobacco or drugs resides in [facility] Physical Exam Vital Signs Vital Signs Date Time Temp Pulse Resp B/P (MAP) Pulse Ox O2 Delivery O2 Flow Rate FiO2 06/19/17 16:00 97.0 89 20 105/50 (68) 97 06/19/17 15:30 96 T-piece 6.00 28 06/19/17 13:00 97.8 52 16 114/55 (74) 100 06/19/17 10:45 70 16 141/68 (92) 99 Trach Collar 8.00 06/19/17 09:45 97 Trach Collar 28 06/19/17 08:23 61 16 117/56 (76) 96 Trach Collar 4.00 06/19/17 05:40 54 22 115/58 (77) 100 Trach Collar 5.00 06/18/17 23:57 99 Trach Collar 28 06/18/17 23:22 87 18 184/91 (122) 100 Trach Collar 5.00 06/18/17 23:15 94 Trach Collar 5.00 06/18/17 23:12 5.00 06/18/17 23:07 101.0 109 16 225/119 (154) 94 Physical Exam CONSTITUTIONAL/GENERAL: This is an adequately nourished patient, in no apparent distress. TUBES/LINES/DRAINS: SKIN: No jaundice, rashes, or lesions. Skin temperature appropriate. Not diaphoretic. HEAD: Atraumatic. Normocephalic. EYES: Pupils equal and round and reactive. Extraocular motions intact. No scleral icterus. No injection or drainage. Fundi not examined. ENT: Hearing grossly normal. Nose without bleeding or purulent drainage. Throat without visible erythema, exudates, masses, or lesions. NECK: Trachea midline. Supple, nontender. Trach in place , minimal secretions CARDIOVASCULAR: Regular rate and rhythm without murmurs, gallops, or rubs. No JVD. Peripheral pulses symmetric. RESPIRATORY/CHEST: Symmetric, unlabored respirations. Clear to auscultation. Breath sounds equal bilaterally. No wheezes, rales, or rhonchi. GASTROINTESTINAL: Abdomen soft, non-tender, nondistended. No hepato-splenomegaly , or palpable masses. No guarding. Bowel sounds present. PEG in place w/o e/o infection around it GENITOURINARY: Without palpable bladder distension. MUSCULOSKELETAL: Extremities without clubbing, cyanosis, or edema. No joint tenderness or effusion noted. No calf tenderness. No mottling or clubbing. LYMPHATICS: No palpable cervical or supraclavicular adenopathy. NEUROLOGICAL: Unresponsive; posturing to tactile stimulation eyes closed PSYCHIATRIC: unable to assess Laboratory Laboratory Tests Test 06/18/17 23:25 06/19/17 03:15 White Blood Count 15.7 Red Blood Count 4.94 Hemoglobin 15.1 Hematocrit 44.7 Mean Corpuscular Volume 90.6 Mean Corpuscular Hemoglobin 30.5 Mean Corpuscular Hemoglobin Concent 33.7 Red Cell Distribution Width 13.2 Platelet Count 311 Mean Platelet Volume 9.3 Neutrophils (%) (Auto) 86.1 Lymphocytes (%) (Auto) 5.4 Monocytes (%) (Auto) 7.3 Eosinophils (%) (Auto) 0.1 Basophils (%) (Auto) 1.1 Neutrophils # (Auto) 13.6 Lymphocytes # (Auto) 0.8 Monocytes # (Auto) 1.1 Eosinophils # (Auto) 0.0 Basophils # (Auto) 0.2 CBC Comment AUTO DIFF Differential Comment AUTO DIFF CONFIRMED Platelet Estimate NORMAL Platelet Morphology Comment ENLARGED Prothrombin Time 11.1 Prothromb Time International Ratio 1.1 Activated Partial Thromboplast Time 24.5 Blood Urea Nitrogen 15 Creatinine 1.02 Random Glucose 102 Total Protein 9.1 Albumin 4.3 Calcium Level 9.6 Phosphorus Level 3.0 Magnesium Level 2.2 Alkaline Phosphatase 100 Aspartate Amino Transf (AST/SGOT) 39 Alanine Aminotransferase (ALT/SGPT) 69 Total Bilirubin 0.3 Sodium Level 140 Potassium Level 4.0 Chloride Level 105 Carbon Dioxide Level 27.1 Anion Gap 8 Estimat Glomerular Filtration Rate 104 Lactic Acid Level 2.3 1.3 Total Creatine Kinase 1530 Creatine Kinase MB 6.3 Creatine Kinase MB % 0.4 Troponin I 0.02 Lipase 150 Urine Color YELLOW Urine Turbidity HAZY Urine pH 6.5 Urine Specific [place] 1.023 Urine Protein 100 Urine Glucose (UA) NEG Urine Ketones 10 Urine Occult Blood NEG Urine Nitrite NEG Urine Bilirubin NEG Urine Urobilinogen 2.0 Urine Leukocyte Esterase NEG Urine RBC 1 Urine WBC 2 Urine Amorphous Sediment RARE Urine Bacteria OCC Urine Hyaline Casts 1 Urine Mucus FEW Microscopic Urinalysis Comment CATH-CULTURE IND Date/Time Source Procedure Growth Status 06/18/17 23:25 Blood Peripheral Aerobic Blood Culture - Preliminary NO GROWTH IN 1 DAY Resulted 06/18/17 23:25 Blood Peripheral Anaerobic Blood Culture - Preliminary NO GROWTH IN 1 DAY Resulted 06/19/17 05:00 Sputum Endotracheal Gram Stain - Final Resulted 06/19/17 05:00 Sputum Endotracheal Sputum Culture Pending Resulted 06/19/17 03:15 Urine Catheterized Urine Urine Culture Pending Received Result Diagram: 06/18/17 2325 06/18/175 Imaging Last Impressions Abdomen/Pelvis CT 06/18/17 2312 Signed Impressions: Service Date/Time: June 02:37 - CONCLUSION: 1. No dilated loops of small large bowel. 2. Gastrostomy and jejunal tube in place. 3. There is a new non-consolidative infiltrate in the right costophrenic angle. Zachariah Jiménez MD Chest X-Ray 06/18/17 0000 Signed Impressions: Service Date/Time: Sunday, June 18, 2017 23:28 - CONCLUSION: The lungs are clear. Zachariah Jiménez MD Assessment and Plan Assessment and Plan Anoxic encephalopathy Sepsis: fever, leukocyutosis New infiltrate on CT recent h/o ESBL+ organism and MRSA infections cont vancomycin change zosyn to meropenem (ASP: known recent ESBL + oragnism infx) Discussed Condition With Ebony Fuentes MD Jun 19, 2017 19:24
[2017-06-19] MEDS ORDERED: MISCELLANEOUS PHARMACY INFORMATION XX PRN (19:30)
[2017-06-19] MEDS ORDERED: ASP: Documented ESBL, MDR A baumannii or P. aeruginosa PRN (19:30)
[2017-06-19] MEDS: MEROPENEM INJ 1,000 MG in SODIUM CHLORIDE 0.9% INJ 100 ML IV SCH (20:17)
[2017-06-20] VITALS (10 sets, daily range): BP systolic 112–179; BP diastolic 55–92; PULSE 64–134; RESP 18–24; TEMP 96.4–100.6; O2SAT 95–100
[2017-06-20] MEDS: HYOSCYAMINE 0.125 MG TAB PO SCH ×6 (00:53→19:45)
[2017-06-20] MEDS: SODIUM CHLOR 0.9% 1000 ML INJ 1,000 ML IV SCH ×5 (00:53→21:48)
[2017-06-20] MEDS: RESP: ALBUTEROL 2.5 MG/IPRATROPIUM 0.5 MG NEB (SCH) INH ×4 (03:14→23:21)
[2017-06-20] MEDS: MEROPENEM INJ 1,000 MG in SODIUM CHLORIDE 0.9% INJ 100 ML IV SCH ×3 (04:14→19:44)
[2017-06-20] MEDS: hydrALAZINE HCL 100 MG TAB PO SCH ×3 (04:14→21:49)
[2017-06-20] MEDS: VANCOMYCIN INJ 1,250 MG in SODIUM CHLOR 0.9% 250 ML INJ 250 ML IV SCH ×2 (04:51→15:53)
[2017-06-20] MEDS: BACLOFEN 20 MG TAB G-TUBE SCH ×3 (07:55→17:52)
[2017-06-20] MEDS: levETIRAcetam 500 MG/5 ML UDC G-TUBE SCH ×2 (07:55→19:45)
[2017-06-20] MEDS: APIXABAN 5 MG TABLET PO SCH ×2 (07:55→19:46)
[2017-06-20] MEDS: FAMOTIDINE 20 MG TAB PO SCH (07:55)
[2017-06-20] MEDS: METOPROLOL TARTRATE 50 MG TAB PO SCH (07:56)
[2017-06-20] MEDS: LORATADINE 10 MG TAB G-TUBE SCH (07:56)
[2017-06-20] MEDS: SODIUM CHLORIDE 0.9% FLUSH 10 ML FLUSH IV FLUSH SCH ×2 (07:59→19:45)
[2017-06-20 08:51] LABS: AUTOMATED NEUTROPHIL # 2.4 TH/MM3 (1.8-7.7); BASOPHIL % 0.5 % (0.0-2.0); EOSINOPHIL # 0.1 TH/MM3 (0-0.4); HEMATOCRIT 35.6 % (39.0-51.0); HEMO FLAGS DIFF FINAL; LYMPHOCYTE # 0.8 TH/MM3 (1.0-4.8); MEAN CELL VOLUME 92.4 FL (80.0-100.0); MEAN CORPUSCULAR HEMOGLOBIN 30.9 PG (27.0-34.0); MEAN CORPUSCULAR HGB CONC 33.4 % (32.0-36.0); MONO % 11.3 % (0.0-8.0); NEUT % 65.2 % (16.0-70.0); PLATELET COUNT 170 TH/MM3 (150-450); RED BLOOD COUNT 3.86 MIL/MM3 (4.50-5.90); RED CELL DISTRIBUTION WIDTH 13.5 % (11.6-17.2); WHITE BLOOD COUNT 3.7 TH/MM3 (4.0-11.0)
[2017-06-20 09:39] LABS: BICARBONATE 22.5 MEQ/L (21.0-32.0); POTASSIUM 3.3 MEQ/L (3.5-5.1)
--- NOTE | 2017-06-20 10:04 | HHI.PR ---
Subjective Remarks Follow-up sepsis/HCAP/Anorexic encephalopathy 06/20/17-Patient seen and examined; nonverbal, afebrile. MOM by the bedside and history is provided by her. Full code Objective Vitals Vital Signs Date Time Temp Pulse Resp B/P (MAP) Pulse Ox O2 Delivery O2 Flow Rate FiO2 06/20/17 08:00 99.3 87 18 179/92 (121) 100 06/20/17 04:00 98.4 79 20 122/55 (77) 97 06/20/17 03:14 98 T-piece 28.00 06/20/17 00:37 96.4 64 20 125/59 (81) 98 06/19/17 20:00 97.7 72 17 101/80 (87) 99 06/19/17 16:00 97.0 89 20 105/50 (68) 97 06/19/17 15:30 96 T-piece 6.00 28 06/19/17 13:00 97.8 52 16 114/55 (74) 100 06/19/17 10:45 70 16 141/68 (92) 99 Trach Collar 8.00 I/O 06/19/17 06/19/17 06/19/17 06/20/17 06/20/17 06/20/17 07:00 15:00 23:00 07:00 15:00 23:00 Intake Total 2450 ml 600 ml 2276 ml 1656 ml Output Total 1 ml Balance 2450 ml 600 ml 2275 ml 1656 ml Intake Oral 0 ml 0 ml IV Total 2450 ml 600 ml 1976 ml 1229 ml Tube Feeding 187 ml Tube Irrigant 60 ml Other 240 ml 240 ml Output Urine Total 1 ml Bladder Scan Volume Amount 300 ml # Voids 1 2 # Bowel Movements 0 Result Diagram: 06/20/17 0837 06/20/17 0837 Imaging Last Impressions Abdomen/Pelvis CT 06/18/17 2312 Signed Impressions: Service Date/Time: June 02:37 - CONCLUSION: 1. No dilated loops of small large bowel. 2. Gastrostomy and jejunal tube in place. 3. There is a new non-consolidative infiltrate in the right costophrenic angle. Zachariah Jiménez MD Chest X-Ray 06/18/17 0000 Signed Impressions: Service Date/Time: Sunday, June 18, 2017 23:28 - CONCLUSION: The lungs are clear. Zachariah Jiménez MD Objective Remarks GENERAL: NAD with chronic trach/nonverbal SKIN: Warm and dry. HEAD: Normocephalic. EYES: No scleral icterus. No injection or drainage. NECK: Supple, trachea midline. No JVD or lymphadenopathy. CARDIOVASCULAR: Regular rate and rhythm without murmurs, gallops, or rubs. RESPIRATORY: Breath sounds equal bilaterally. chronic trach GASTROINTESTINAL: Abdomen soft, non-tender, nondistended. MUSCULOSKELETAL: contractures BACK: Nontender without obvious deformity. No CVA tenderness. A/P Problem List: (1) Sepsis ICD Code: A41.9 - Sepsis, unspecified organism Status: Resolved (2) Healthcare-associated pneumonia ICD Code: J18.9 - Pneumonia, unspecified organism Status: Acute (3) Permanent vegetative state ICD Code: R40.3 - Persistent vegetative state Status: Acute (4) History of DVT (deep vein thrombosis) ICD Code: Z86.718 - Personal history of other venous thrombosis and embolism Status: Acute (5) Hypoxic encephalopathy ICD Code: G93.1 - Anoxic brain damage, not elsewhere classified Status: Acute Assessment and Plan 31 yrs old man with 1. Sepsis/HCAP/chronic respiratory failure with trach CT of the abdomen and pelvis significant for new consolidative infiltrate in the right costophrenic angle Currently on Vanc/Meropenem pending culture reports Patient with history of Pseudomonas and MRSA in his sputum Infectious disease input appreciated Pulmonary consultation appreciated Supplemental oxygen Duo nebs 2. Rhabdomyolysis Aggressive IV fluid hydration Monitor renal function Monitor CK in am 3. Seizure disorder No seizures reported Continue Dannielle 4. History of DVT Continue Lyle Chavarria MD Jun 20, 2017 10:04
[2017-06-20] MEDS ORDERED: ACETAMINOPHEN/HYDROcodone 325 MG/5 MG TAB PO PRN (10:15)
[2017-06-20 11:37] LABS: CKMB 4.7 NG/ML (0.5-3.6)
[2017-06-20] MEDS ORDERED: MORPHINE SULFATE 2 MG/ML INJ IV PUSH PRN (20:45)
[2017-06-20] MEDS: LORazepam 0.5 MG TAB PO PRN (22:33)
[2017-06-20] MEDS ORDERED: LORazepam 2 MG/ML VIAL ONE (23:42)
[2017-06-21] VITALS (11 sets, daily range): BP systolic 91–122; BP diastolic 47–68; PULSE 64–103; RESP 18–26; TEMP 98.3–98.8; O2SAT 95–100
[2017-06-21] MEDS ORDERED: MIDAZOLAM HCL 5 MG/ML VIAL (1 ML) IM ONE
[2017-06-21] MEDS ORDERED: PHENYTOIN INJ 1,500 MG in SODIUM CHLOR 0.9% 250 ML INJ 250 ML IV ONE ×2
[2017-06-21] MEDS: METOPROLOL TARTRATE 50 MG TAB PO SCH ×3 (00:06→21:55)
--- NOTE | 2017-06-21 01:07 | PD.CONS ---
HPI Service Critical Care Medicine Consult Requested By [facility] Reason for Consult Status Seizures Primary Care Physician Jm Torres MD History of Present Illness 31 y/o male in chronic vegetative state following traumatic brain injury and long-term seizure disorder was admitted 2 days ago with recurrent Pseudomonas pneumonia. He developed seizures tonight refractory to benzodiazepines. Transferred to [facility] after iv and im versed and ativan, loaded with cerebyx, still intermittently seizing, now limited to left arm clonic movement. Review of Systems ROS Unobtainable. Past Family Social History Allergies: Coded Allergies: haloperidol (Unverified Adverse Reaction, Severe, Seizures, 06/18/17) Past Medical History Past Medical History (Obtained from medical records review) Traumatic brain injury with persistent vegetative state History of DVT on Coumadin Recurrent pneumonia/sepsis Seizure disorder Past Surgical History Tracheostomy PEG placement Reported Medications Reported Meds & Active Scripts Active Ativan (Lorazepam) 0.5 Mg Tab 0.5 Mg PO DAILY PRN Ativan (Lorazepam) 1 Mg Tab 1 Mg G-TUBE Q4H PRN Bisacodyl EC (Bisacodyl) 5 Mg Tabec 5 Mg PO DAILY PRN Baclofen 20 Mg Tab 20 Mg G-TUBE TID Reported Potassium Chloride Liq (Potassium Chloride) 20 Meq/15 Ml Soln 20 Meq PO BID Ranitidine (Ranitidine HCl) 150 Mg Tab 150 Mg PO BID Oxycodone (Oxycodone HCl) 5 Mg Tab 5 Mg PO Q6H PRN Norvasc (Amlodipine Besylate) 10 Mg Tab 10 Mg PO DAILY Lopressor (Metoprolol Tartrate) 50 Mg Tab 50 Mg PO BID Keppra (Levetiracetam) 1,000 Mg Tab 1,000 Mg PO BID Augmentin (Amoxicillin-Clavulanate) 875-125 Mg Tab 1 Tab PO BID 10 Days Hydralazine (Hydralazine HCl) 100 Mg Tab 50 Mg PO Q8HR Take with meals Hyoscyamine (Hyoscyamine Sulfate) 0.125 Mg Tab 0.25 Mg PO Q4H Guaifenesin AC Liq (Guaifenesin-Codeine Liq) 100-10 Mg/5 Ml Syrp 10 Ml PO Q6H PRN Famotidine 20 Mg Tab 20 Mg PO DAILY Eliquis (Apixaban) 5 Mg Tab 5 Mg PO BID Tylenol (Acetaminophen) 325 Mg Tab 650 Mg PO Q6H PRN Duoneb (Ipratropium-Albuterol Neb) 0.5-2.5 Mg/3 Ml Neb 1 Nebule INH Q4HR NEB Atropine Opth Drops 1% Soln 1 Drop SL Q12HR PRN Claritin Liq (Loratadine) 5 Mg/5 Ml Liq 5 Mg G-TUBE DAILY Allergies: Coded Allergies: haloperidol (Unverified Adverse Reaction, Severe, Seizures, 06/18/17) Family History No family history of diabetes mellitus or CAD Social History No alcohol, tobacco or drugs Physical Exam Vital Signs Vital Signs Date Time Temp Pulse Resp B/P (MAP) Pulse Ox O2 Delivery O2 Flow Rate FiO2 06/20/17 23:21 98 T-piece 6.00 28 06/20/17 20:55 100.6 134 24 179/85 (116) 95 06/20/17 16:00 100.5 82 20 133/60 (84) 100 06/20/17 15:36 06/20/17 12:00 98.4 91 18 112/59 (76) 100 06/20/17 10:01 99 T-piece 5.00 06/20/17 08:00 99.3 87 18 179/92 (121) 100 06/20/17 04:00 98.4 79 20 122/55 (77) 97 06/20/17 03:14 98 T-piece 28.00 Physical Exam Gen: Unresponsive. Head: Normal. Neck: Chronic trach Lungs: Luisito sonorous rhonchi. Good luisito air movement. Heart: RRR Abdomen: Benign, soft. BS active. PEG in place. Extremities: Warm, well perfused. Neuro: Unresponsive. Clonic seizure activity left arm, intermittently laft leg. Laboratory Laboratory Tests Test 06/20/17 08:37 White Blood Count 3.7 Red Blood Count 3.86 Hemoglobin 11.9 Hematocrit 35.6 Mean Corpuscular Volume 92.4 Mean Corpuscular Hemoglobin 30.9 Mean Corpuscular Hemoglobin Concent 33.4 Red Cell Distribution Width 13.5 Platelet Count 170 Mean Platelet Volume 9.0 Neutrophils (%) (Auto) 65.2 Lymphocytes (%) (Auto) 21.0 Monocytes (%) (Auto) 11.3 Eosinophils (%) (Auto) 2.0 Basophils (%) (Auto) 0.5 Neutrophils # (Auto) 2.4 Lymphocytes # (Auto) 0.8 Monocytes # (Auto) 0.4 Eosinophils # (Auto) 0.1 Basophils # (Auto) 0.0 CBC Comment DIFF FINAL Differential Comment Blood Urea Nitrogen 4 Creatinine 0.56 Random Glucose 101 Calcium Level 8.0 Sodium Level 145 Potassium Level 3.3 Chloride Level 114 Carbon Dioxide Level 22.5 Anion Gap 9 Estimat Glomerular Filtration Rate 208 Total Creatine Kinase 1493 Creatine Kinase MB 4.7 Creatine Kinase MB % 0.3 Date/Time Source Procedure Growth Status 06/18/17 23:25 Blood Peripheral Aerobic Blood Culture - Preliminary NO GROWTH IN 2 DAYS Resulted 06/18/17 23:25 Blood Peripheral Anaerobic Blood Culture - Preliminary NO GROWTH IN 2 DAYS Resulted 06/19/17 05:00 Sputum Endotracheal Gram Stain - Final Resulted 06/19/17 05:00 Sputum Culture - Preliminary Pseudomonas Species Gram Negative Christiano Resulted 06/19/17 03:15 Urine Catheterized Urine Urine Culture - Preliminary NO GROWTH IN 24 HOURS. Resulted Result Diagram: 06/20/17 0837 06/20/17 0837 Assessment and Plan Assessment and Plan Assessment: 1. Crescendo seizures. 2. Vegetative Sate, persistent. 3. Pseudomonas pneumonia Plan: 1. Ativan 1 mg iv q15 min prn sustained seizures. 2. Cerebyx. 3. ABX per ID service. 4. Leave on T-piece. Overall impression: Critically ill with crescendo seizure pattern, refractory to benzo rx. Cerebyx added. If continues will start versed gtt and place on ventilator. Critical care 36 mins Franklin Bahena MD Jun 21, 2017 01:07
[2017-06-21] MEDS ORDERED: MAGNESIUM SULFATE 1 GM PREMIX 100 ML IV SCH (01:15)
[2017-06-21] MEDS: SODIUM CHLOR 0.9% 1000 ML INJ 1,000 ML IV SCH ×3 (01:47→21:56)
[2017-06-21] MEDS: HYOSCYAMINE 0.125 MG TAB PO SCH ×7 (01:47→23:52)
--- NOTE | 2017-06-21 02:33 | HHI.PR ---
Addendum to Inpatient Note Addendum Reason: Additional Documentation Additional Information S: Called to [facility] for a 31-year-old male with past history of brain injury and persistent vegetative state who was reported to be tachycardic, tachypneic and diaphoretic. Nurse reported that she administered Ativan and morphine per PEG tube recently. Upon arrival patient was actively seizing. Patient was noncommunicative and did not respond to verbal stimuli, it was reported this is his baseline communication status. 2 mg Ativan was administered IV and patient continued to seize. A second large bore IV was placed, and phenytoin 1500 mg was ordered. Upon communication with the pharmacy was noted that Ativan was out of stock, medazepam 10 mg IM was administered. Soon after the seizures appear to stop. The front clerk manager of operations was called and discussed the case as well as transfer of care with him. O: GENERAL: Actively seizing, unresponsive SKIN: Diaphoretic HEAD: Atraumatic. Normocephalic. EYES: Pupils equal and round. No scleral icterus. No injection or drainage. ENT: No nasal bleeding or discharge. Mucous membranes pink and moist. NECK: Trachea midline. No JVD. CARDIOVASCULAR: Regular rate and rhythm. RESPIRATORY: No accessory muscle use. Rhonchorous, good air movement, trach in place GASTROINTESTINAL: PEG in place MUSCULOSKELETAL: Extremities without clubbing, cyanosis, or edema. No obvious deformities. NEUROLOGICAL: Unresponsive, baseline vegetative state A: 31-year-old male with past history of brain injury and persistent vegetative state who presents with persistent seizures. Ativan 2 mg, Versed 10 mg, phenytoin 1500 mg was administered. Seizure aborted. P: -Monitor for seizure-like activity -Rehab Aide was consulted and patient was discussed -Transfer patient to ICU -Per front clerk phenytoin was continued while enroute to ICU -EEG not available at night, should be ordered when available Clayton Figueroa MD R1 Jun 21, 2017 02:33
[2017-06-21] MEDS ORDERED: PHARMACY ORDERED LAB ONE ×2 (02:45→14:45)
[2017-06-21] MEDS: RESP: ALBUTEROL 2.5 MG/IPRATROPIUM 0.5 MG NEB (SCH) INH ×4 (03:55→21:50)
[2017-06-21] MEDS: VANCOMYCIN INJ 1,250 MG in SODIUM CHLOR 0.9% 250 ML INJ 250 ML IV SCH (07:24)
[2017-06-21] MEDS: MEROPENEM INJ 1,000 MG in SODIUM CHLORIDE 0.9% INJ 100 ML IV SCH ×3 (07:24→21:56)
[2017-06-21] MEDS: FOSPHENYTOIN SODIUM 100 MG PE/2 ML VIAL IV SCH ×3 (07:25→21:54)
[2017-06-21] MEDS: hydrALAZINE HCL 100 MG TAB PO SCH ×3 (07:25→21:55)
[2017-06-21] MEDS: FAMOTIDINE 20 MG TAB PO SCH (10:13)
[2017-06-21] MEDS: LORATADINE 10 MG TAB G-TUBE SCH (10:14)
[2017-06-21] MEDS: levETIRAcetam 500 MG/5 ML UDC G-TUBE SCH ×2 (10:14→21:54)
[2017-06-21] MEDS: SODIUM CHLORIDE 0.9% FLUSH 10 ML FLUSH IV FLUSH SCH ×2 (10:15→21:56)
--- NOTE | 2017-06-21 13:47 | HHI.IDPN ---
Subjective Subjective Remarks pt transferred to ICU after seizure episode + low grade fever growing ESBL+ Kleb and PSAE from sputum clx kimberly on Tpiece Antibiotics meropenem vancomycin Allergies: Coded Allergies: haloperidol (Unverified Adverse Reaction, Severe, Seizures, 06/18/17) Objective . Vital Signs Date Time Temp Pulse Resp B/P (MAP) Pulse Ox O2 Delivery O2 Flow Rate FiO2 06/21/17 09:36 96 T-piece 40 06/21/17 06:00 70 06/21/17 04:00 74 06/21/17 04:00 98.7 74 20 122/67 (85) 95 06/21/17 03:56 100 T-piece 6.00 50 06/21/17 02:00 82 06/20/17 23:35 100 T-piece 6.00 100 06/20/17 23:35 100 6.00 50 06/20/17 23:21 98 T-piece 6.00 28 06/20/17 20:55 100.6 134 24 179/85 (116) 95 06/20/17 16:00 100.5 82 20 133/60 (84) 100 06/20/17 15:36 . Laboratory Tests Test 06/20/17 08:37 White Blood Count 3.7 TH/MM3 Red Blood Count 3.86 MIL/MM3 Hemoglobin 11.9 GM/DL Hematocrit 35.6 % Mean Corpuscular Volume 92.4 FL Mean Corpuscular Hemoglobin 30.9 PG Mean Corpuscular Hemoglobin Concent 33.4 % Red Cell Distribution Width 13.5 % Platelet Count 170 TH/MM3 Mean Platelet Volume 9.0 FL Neutrophils (%) (Auto) 65.2 % Lymphocytes (%) (Auto) 21.0 % Monocytes (%) (Auto) 11.3 % Eosinophils (%) (Auto) 2.0 % Basophils (%) (Auto) 0.5 % Neutrophils # (Auto) 2.4 TH/MM3 Lymphocytes # (Auto) 0.8 TH/MM3 Monocytes # (Auto) 0.4 TH/MM3 Eosinophils # (Auto) 0.1 TH/MM3 Basophils # (Auto) 0.0 TH/MM3 CBC Comment DIFF FINAL Differential Comment Laboratory Tests Test 06/20/17 08:37 Blood Urea Nitrogen 4 MG/DL Creatinine 0.56 MG/DL Random Glucose 101 MG/DL Calcium Level 8.0 MG/DL Sodium Level 145 MEQ/L Potassium Level 3.3 MEQ/L Chloride Level 114 MEQ/L Carbon Dioxide Level 22.5 MEQ/L Anion Gap 9 MEQ/L Estimat Glomerular Filtration Rate 208 ML/MIN Total Creatine Kinase 1493 U/L Creatine Kinase MB 4.7 NG/ML Creatine Kinase MB % 0.3 % Microbiology Date/Time Source Procedure Growth Status 06/18/17 23:25 Blood Peripheral Aerobic Blood Culture - Preliminary NO GROWTH IN 3 DAYS Resulted 06/18/17 23:25 Blood Peripheral Anaerobic Blood Culture - Preliminary NO GROWTH IN 3 DAYS Resulted 06/18/17 23:15 Blood Peripheral Aerobic Blood Culture - Preliminary NO GROWTH IN 3 DAYS Resulted 06/18/17 23:15 Blood Peripheral Anaerobic Blood Culture - Preliminary NO GROWTH IN 3 DAYS Resulted 06/19/17 05:00 Sputum Endotracheal Gram Stain - Final Resulted 06/19/17 05:00 Sputum Culture - Preliminary Pseudomonas Aeruginosa Klebsiella Pneumoniae Esbl Pos Resulted 06/19/17 03:15 Nasal Aspirate Influenza Types A,B Antigen (DEMETRIUS) - Final NEGATIVE FOR FLU A AND B ANTIGEN.... Complete 06/19/17 03:15 Urine Catheterized Urine Urine Culture - Final NO GROWTH IN 48 HOURS. Complete Imaging Last Impressions Abdomen/Pelvis CT 06/18/17 2312 Signed Impressions: Service Date/Time: June 02:37 - CONCLUSION: 1. No dilated loops of small large bowel. 2. Gastrostomy and jejunal tube in place. 3. There is a new non-consolidative infiltrate in the right costophrenic angle. Zachariah Jiménez MD Chest X-Ray 06/18/17 0000 Signed Impressions: Service Date/Time: Sunday, June 18, 2017 23:28 - CONCLUSION: The lungs are clear. Zachariah Jiménez MD Physical Exam CONSTITUTIONAL/GENERAL: This is an adequately nourished patient, in no apparent distress. TUBES/LINES/DRAINS: SKIN: No jaundice, rashes, or lesions. Skin temperature appropriate. Not diaphoretic. NECK: trach in place with bloody purulent secretions CARDIOVASCULAR: Regular rate and rhythm without murmurs, gallops, or rubs. No JVD. Peripheral pulses symmetric. RESPIRATORY/CHEST: Symmetric, unlabored respirations. Clear to auscultation. Breath sounds equal bilaterally. No wheezes, rales, or rhonchi. GASTROINTESTINAL: Abdomen soft, non-tender, nondistended. No hepato-splenomegaly , or palpable masses. No guarding. Bowel sounds present. PEG in place w/o e/o infection around it GENITOURINARY: Without palpable bladder distension. MUSCULOSKELETAL: Extremities without clubbing, cyanosis, or edema. No joint tenderness or effusion noted. No calf tenderness. No mottling or clubbing. LYMPHATICS: No palpable cervical or supraclavicular adenopathy. NEUROLOGICAL: Unresponsive; posturing to tactile stimulation eyes closed PSYCHIATRIC: unable to assess Assessment & Plan Remarks Anoxic encephalopathy Sepsis: fever, leukocyutosis RLL PNA Kleb pneumo, PAE in sputum dc vancomycin cont meropenem (ASP: known recent ESBL + oragnism infx) Ebony Ng MD Jun 21, 2017 13:47
--- NOTE | 2017-06-21 13:48 | RADRPT ---
EXAM DATE/TIME: 06/21/2017 13:12 [facility] COMPARISON: CHEST SINGLE AP, June 18, 2017, 23:28. INDICATIONS : Respiratory disease MEDICAL HISTORY : Anoxic brain injury SURGICAL HISTORY : Tracheostomy ENCOUNTER: Subsequent ACUITY: 4 - 6 days PAIN SCORE: Non-responsive. LOCATION: Bilateral chest FINDINGS: There is a tracheostomy in stable position. Cardiomediastinal contours are stable. No focal pleural-p arenchymal opacities. Bony thorax is intact. CONCLUSION: 1. No acute abnormality or significant interval change. Sergey Alberto MD on June 21, 2017 at 13:45 Board Certified Radiologist. This report was verified electronically.
[2017-06-21] MEDS: APIXABAN 5 MG TABLET PO SCH ×2 (16:01→21:55)
[2017-06-21] MEDS: BACLOFEN 20 MG TAB G-TUBE SCH ×2 (16:01→18:00)
--- NOTE | 2017-06-21 18:14 | MG ---
cc: GODWIN GILL M.D. Lab No: Date: 06/21/2017 Age: 31 Sex: M Race: REQUESTING PHYSICIAN: Dr. Blancahrd. HISTORY: An EEG was obtained on this 31-year-old patient being evaluated for possible seizures. The patient is described as awake in a persistent vegetative state. History of traumatic brain injury. DESCRIPTION OF THE RECORDING: This EEG shows prominent attenuation. There are some low amplitude rhythms and there is a lot of eye movement artifact. This low amplitude is a beta activity and actually questionably of brain origin or just artifactual. At some point, there is a little bit more artifact with higher amplitude muscle activity. Photic stimulation disclosed no driving response. At some point during photic, there is a buildup of some muscle artifact without any obvious change in the low amplitude fast background of a questionable significance in origin as discussed. INTERPRETATION: Markedly abnormal EEG because of very low amplitude rhythms of equivocal brain origin significance. There is intermittent artifact. There is eye movement artifact intermittently. No epileptiform features present. MD ELIZABETH Gardner/LARS /5:50 PM /6:05 PM
[2017-06-21] MEDS: LORazepam 0.5 MG TAB PO PRN (21:55)
[2017-06-22] VITALS (14 sets, daily range): BP systolic 93–119; BP diastolic 53–76; PULSE 64–96; RESP 18–28; TEMP 97.4–99.2; O2SAT 92–100
[2017-06-22] MEDS: RESP: ALBUTEROL 2.5 MG/IPRATROPIUM 0.5 MG NEB (SCH) INH ×4 (03:35→19:21)
[2017-06-22] MEDS: HYOSCYAMINE 0.125 MG TAB PO SCH ×5 (04:15→21:30)
[2017-06-22] MEDS: MEROPENEM INJ 1,000 MG in SODIUM CHLORIDE 0.9% INJ 100 ML IV SCH ×3 (04:15→21:15)
[2017-06-22] MEDS: hydrALAZINE HCL 100 MG TAB PO SCH ×3 (06:00→21:30)
[2017-06-22] MEDS: FOSPHENYTOIN SODIUM 100 MG PE/2 ML VIAL IV SCH ×3 (06:17→21:31)
[2017-06-22] MEDS: METOPROLOL TARTRATE 50 MG TAB PO SCH ×2 (08:44→21:31)
[2017-06-22] MEDS: FAMOTIDINE 20 MG TAB PO SCH (08:44)
[2017-06-22] MEDS: APIXABAN 5 MG TABLET PO SCH ×2 (08:44→21:31)
[2017-06-22] MEDS: levETIRAcetam 500 MG/5 ML UDC G-TUBE SCH ×2 (08:45→21:00)
[2017-06-22] MEDS: BACLOFEN 20 MG TAB G-TUBE SCH ×3 (08:45→18:00)
[2017-06-22] MEDS: LORATADINE 10 MG TAB G-TUBE SCH (08:45)
[2017-06-22] MEDS: SODIUM CHLORIDE 0.9% FLUSH 10 ML FLUSH IV FLUSH SCH ×2 (11:47→21:18)
[2017-06-22] MEDS: SODIUM CHLOR 0.9% 1000 ML INJ 1,000 ML IV SCH ×2 (11:50→19:36)
--- NOTE | 2017-06-22 12:57 | HHI.CCPN ---
Subjective Remarks/Hospital Course 31 y/o male in chronic vegetative state following traumatic brain injury and long-term seizure disorder was admitted 2 days ago with recurrent Pseudomonas pneumonia. He developed seizures tonight refractory to benzodiazepines. Transferred to [facility] after iv and im versed and ativan, loaded with cerebyx, still intermittently seizing, now limited to left arm clonic movement. 06/22: It appears that "seizure" activity is likely a chronic twitch. He is stable otherwise. Objective Vital Signs Date Time Temp Pulse Resp B/P (MAP) Pulse Ox O2 Delivery O2 Flow Rate FiO2 06/22/17 10:00 68 06/22/17 09:29 100 T-piece 35 06/22/17 08:00 98.8 19 110/56 (74) 06/21/17 03:56 6.00 Intake and Output 06/22/17 06/22/17 06/23/17 08:00 16:00 00:00 Intake Total 1557 ml Output Total 800 ml Balance 757 ml Result Diagram: 06/20/1737 06/20/17836 Objective Remarks Gen: Unresponsive. Head: Normal. Neck: Chronic trach, site clean. Lungs: Yunier sonorous rhonchi. Good yunier air movement. Heart: RRR, No JVD. Abdomen: Benign, soft. BS active. PEG in place. Extremities: Warm, well perfused. Neuro: Unresponsive, chronic condition. Breathe comfortably. A/P Assessment and Plan Assessment: 1. Crescendo seizures. 2. Vegetative State, persistent. 3. Pseudomonas pneumonia Plan: 1. d/c Ativan 1 mg iv q15 min prn sustained seizures. 2. Cerebyx. Adjust per neurology service. 3. ABX per ID service. 4. Leave on T-piece. Overall impression: He is in his chronic stable vegetative state. Transfer to floor. Franklin Bahena MD Jun 22, 2017 12:57
[2017-06-22] MEDS: LORazepam 0.5 MG TAB PO PRN (21:31)
[2017-06-23] VITALS (9 sets, daily range): BP systolic 107–155; BP diastolic 56–77; PULSE 54–84; RESP 18–20; TEMP 97.8–98.9; O2SAT 94–100
[2017-06-23] MEDS: levETIRAcetam 500 MG/5 ML UDC G-TUBE SCH ×3 (02:45→12:41)
[2017-06-23] MEDS: HYOSCYAMINE 0.125 MG TAB PO SCH ×2 (03:39)
[2017-06-23] MEDS: RESP: ALBUTEROL 2.5 MG/IPRATROPIUM 0.5 MG NEB (SCH) INH ×2 (04:43→09:08)
[2017-06-23] MEDS: MEROPENEM INJ 1,000 MG in SODIUM CHLORIDE 0.9% INJ 100 ML IV SCH ×3 (05:28→23:51)
[2017-06-23] MEDS: SODIUM CHLOR 0.9% 1000 ML INJ 1,000 ML IV SCH ×3 (05:29→23:50)
[2017-06-23] MEDS: hydrALAZINE HCL 100 MG TAB PO SCH (06:00)
[2017-06-23] MEDS: FOSPHENYTOIN SODIUM 100 MG PE/2 ML VIAL IV SCH ×2 (06:03→14:11)
[2017-06-23] MEDS ORDERED: BISACODYL EC 5 MG TABEC PRN (09:30)
[2017-06-23] MEDS ORDERED: LORazepam 0.5 MG TAB PEG PRN (09:30)
[2017-06-23] MEDS: FAMOTIDINE 20 MG TAB PEG SCH (10:18)
[2017-06-23] MEDS: APIXABAN 5 MG TABLET NG SCH (10:19)
[2017-06-23] MEDS: HYOSCYAMINE 0.125 MG TAB PEG SCH ×2 (10:19→16:46)
[2017-06-23] MEDS: LORATADINE 10 MG TAB G-TUBE SCH (10:20)
[2017-06-23] MEDS: BACLOFEN 20 MG TAB G-TUBE SCH ×3 (10:20→17:46)
[2017-06-23] MEDS: SODIUM CHLORIDE 0.9% FLUSH 10 ML FLUSH IV FLUSH SCH ×2 (10:22→21:00)
[2017-06-23] MEDS: HYOSCYAMINE SOLN 0.125 MG/ML 15 ML BTL PO PRN (12:42)
[2017-06-23] MEDS: hydrALAZINE HCL 100 MG TAB PEG SCH (14:11)
--- NOTE | 2017-06-23 14:23 | HHI.IDPN ---
Subjective Subjective Remarks doing better less secretions afebrile He grew MDRO PSAE R imipenem Antibiotics meropenem vancomycin Allergies: Coded Allergies: haloperidol (Unverified Adverse Reaction, Severe, Seizures, 06/18/17) Objective . Vital Signs Date Time Temp Pulse Resp B/P (MAP) Pulse Ox O2 Delivery O2 Flow Rate FiO2 06/23/17 12:56 98.9 81 20 155/77 (103) 100 06/23/17 09:10 94 T-piece 28 06/23/17 08:08 98.7 67 20 110/56 (74) 98 06/23/17 05:50 97.9 80 20 115/72 (86) 97 06/23/17 04:43 97 T-piece 6.00 35 06/23/17 01:30 98.1 84 19 119/67 (84) 98 06/22/17 21:00 97.4 85 18 115/61 (79) 97 06/22/17 19:56 96 T-piece 6.00 35 06/22/17 19:21 100 T-piece 35 06/22/17 18:00 75 06/22/17 16:00 96 06/22/17 16:00 99.0 96 26 119/60 (79) 100 06/23/17 06/23/17 06/24/17 15:00 23:00 07:00 Intake Total 678 ml Balance 678 ml Tube Feeding 588 ml Tube Irrigant 90 ml # Bowel Movements 1 Imaging Last Impressions Chest X-Ray 06/21/17 0000 Signed Impressions: Service Date/Time: Wednesday, June 21, 2017 13:12 - CONCLUSION: 1. No acute abnormality or significant interval change. Sergey Alberto MD Abdomen/Pelvis CT 06/18/17 231 Signed Impressions: Service Date/Time: June 02:37 - CONCLUSION: 1. No dilated loops of small large bowel. 2. Gastrostomy and jejunal tube in place. 3. There is a new non-consolidative infiltrate in the right costophrenic angle. Zachariah Jiménez MD Physical Exam CONSTITUTIONAL/GENERAL: This is an adequately nourished patient, in no apparent distress. TUBES/LINES/DRAINS: SKIN: No jaundice, rashes, or lesions. Skin temperature appropriate. Not diaphoretic. NECK: trach in place with less prominent secretions CARDIOVASCULAR: Regular rate and rhythm without murmurs, gallops, or rubs. No JVD. Peripheral pulses symmetric. RESPIRATORY/CHEST: Symmetric, unlabored respirations. Clear to auscultation. Breath sounds equal bilaterally. No wheezes, rales, or rhonchi. GASTROINTESTINAL: Abdomen soft, non-tender, nondistended. No hepato-splenomegaly , or palpable masses. No guarding. Bowel sounds present. PEG in place w/o e/o infection around it GENITOURINARY: Without palpable bladder distension. MUSCULOSKELETAL: Extremities without clubbing, cyanosis, or edema. No joint tenderness or effusion noted. No calf tenderness. No mottling or clubbing. LYMPHATICS: No palpable cervical or supraclavicular adenopathy. NEUROLOGICAL: Unresponsive; posturing to tactile stimulation eyes closed PSYCHIATRIC: unable to assess Assessment & Plan Remarks Anoxic encephalopathy Sepsis: fever, leukocyutosis RLL PNA Kleb pneumo, MDRO PSAE in sputum Valeria islas dc meropenem start ZerEbony Goode MD Jun 23, 2017 14:23
--- NOTE | 2017-06-23 19:04 | HHI.PR ---
Subjective Remarks Patient is non-verbal. 31M who was admitted on 06-19-17 for pseudomonas pneumonia spent some time in the ICU after developing seizures. Seizures were controlled on Ativan and Cerebyx and he moved to regular floor last night. Objective Vital Signs Date Time Temp Pulse Resp B/P (MAP) Pulse Ox O2 Delivery O2 Flow Rate FiO2 06/23/17 17:34 98 T-piece 6.00 35 06/23/17 16:41 98.8 80 20 141/61 (87) 98 06/23/17 12:56 98.9 81 20 155/77 (103) 100 06/23/17 09:10 94 T-piece 28 06/23/17 08:08 98.7 67 20 110/56 (74) 98 06/23/17 05:50 97.9 80 20 115/72 (86) 97 06/23/17 04:43 97 T-piece 6.00 35 06/23/17 01:30 98.1 84 19 119/67 (84) 98 06/22/17 21:00 97.4 85 18 115/61 (79) 97 06/22/17 19:56 96 T-piece 6.00 35 06/22/17 19:21 100 T-piece 35 I/O 06/22/17 06/22/17 06/22/17 06/23/17 06/23/17 06/23/17 07:00 15:00 23:00 07:00 15:00 23:00 Intake Total 1557 ml 2115 ml 1000 ml 1062 ml 796 ml Output Total 800 ml 1250 ml 550 ml Balance 757 ml 865 ml 1000 ml 1062 ml 246 ml Intake Oral 0 ml 0 ml 0 ml IV Total 888 ml 1250 ml 1000 ml 100 ml 796 ml Tube Feeding 529 ml 625 ml 812 ml Tube Irrigant 150 ml Other 140 ml 240 ml Output Urine Total 800 ml 1250 ml 550 ml # Voids 0 3 # Bowel Movements 0 1 0 1 Result Diagram: 06/20/17 0837 06/20/17 0837 Imaging Last Impressions Chest X-Ray 06/21/17 0000 Signed Impressions: Service Date/Time: Wednesday, June 21, 2017 13:12 - CONCLUSION: 1. No acute abnormality or significant interval change. Sergey Alberto MD Abdomen/Pelvis CT 06/18/17 2312 Signed Impressions: Service Date/Time: June 02:37 - CONCLUSION: 1. No dilated loops of small large bowel. 2. Gastrostomy and jejunal tube in place. 3. There is a new non-consolidative infiltrate in the right costophrenic angle. Zachariah Jiménez MD Objective Remarks GENERAL: Vegetative state from h/o traumatic brain injury, normal weight SKIN: Warm and dry. HEAD: Normocephalic. EYES: No scleral icterus. No injection or drainage. Abnormal deviation (brain injury) NECK: Supple, trachea midline. No JVD or lymphadenopathy. Tracheostomy present with blow-by oxygen attached. CARDIOVASCULAR: Regular rate and rhythm without murmurs, gallops, or rubs. RESPIRATORY: Breath sounds equal bilaterally. Fine crackles in RLL. No accessory muscle use. GASTROINTESTINAL: Abdomen soft, non-tender, nondistended. MUSCULOSKELETAL: No cyanosis, or edema. BACK: Nontender without obvious deformity. No CVA tenderness. EXTREMITIES: no edema Assessment and Plan Problem List: (1) Pseudomonas pneumonia ICD Codes: J15.1 - Pneumonia due to Pseudomonas (2) Seizure ICD Codes: R56.9 - Unspecified convulsions (3) Permanent vegetative state ICD Codes: R40.3 - Persistent vegetative state Status: Acute Assessment and Plan Pseudomonas Pneumonia - Meropenem per ID - Not distressed at this time - Follow CBC Seizures & Rhabdomyolysis - Seizures appear controlled at this time - Will follow up elevated CPK and Cr level, hydrate further if indicated Persistent Vegetative state - Chronic, no changes DVT Prophylaxis - Daren Evans MD Jun 23, 2017 19:04
[2017-06-23 20:47] LABS: AUTOMATED NEUTROPHIL # 1.3 TH/MM3 (1.8-7.7); BASOPHIL % 0.4 % (0.0-2.0); EOSINOPHIL # 0.1 TH/MM3 (0-0.4); EOSINOPHIL % 2.5 % (0.0-4.0); HEMATOCRIT 37.9 % (39.0-51.0); HEMO FLAGS DIFF FINAL; LYMPH % 42.4 % (9.0-44.0); LYMPHOCYTE # 1.4 TH/MM3 (1.0-4.8); MEAN CELL VOLUME 92.3 FL (80.0-100.0); MEAN CORPUSCULAR HEMOGLOBIN 30.7 PG (27.0-34.0); MEAN CORPUSCULAR HGB CONC 33.2 % (32.0-36.0); MONO % 16.4 % (0.0-8.0); NEUT % 38.3 % (16.0-70.0); PLATELET COUNT 186 TH/MM3 (150-450); RED CELL DISTRIBUTION WIDTH 13.6 % (11.6-17.2); WHITE BLOOD COUNT 3.3 TH/MM3 (4.0-11.0)
[2017-06-23 21:11] LABS: ALT (GPT) 45 U/L (12-78); ANION GAP 9 MEQ/L (5-15); AST (GOT) 27 U/L (15-37); BICARBONATE 25.5 MEQ/L (21.0-32.0); BLOOD UREA NITROGEN 5 MG/DL (7-18); CHLORIDE 109 MEQ/L (98-107); GLOMERULAR FILTRATION RATE 175 ML/MIN (>89); POTASSIUM 3.5 MEQ/L (3.5-5.1); SODIUM (NA) 143 MEQ/L (136-145)
[2017-06-23 21:13] LABS: ALKALINE PHOSPHATASE 83 U/L (45-117); CREATINE KINASE 652 U/L (39-308); TOTAL BILIRUBIN ADULT 0.1 MG/DL (0.2-1.0)
[2017-06-23 21:29] LABS: CKMB 2.6 NG/ML (0.5-3.6)
[2017-06-24] VITALS (8 sets, daily range): BP systolic 92–138; BP diastolic 50–77; PULSE 57–79; RESP 18–20; TEMP 97.7–99.1; O2SAT 98–100
[2017-06-24] MEDS: hydrALAZINE HCL 100 MG TAB PEG SCH ×4 (00:01→22:00)
[2017-06-24] MEDS: APIXABAN 5 MG TABLET NG SCH ×3 (00:01→22:58)
[2017-06-24] MEDS: HYOSCYAMINE 0.125 MG TAB PEG SCH ×8 (00:01→23:31)
[2017-06-24] MEDS: FOSPHENYTOIN SODIUM 100 MG PE/2 ML VIAL IV SCH ×4 (00:02→23:00)
[2017-06-24] MEDS: METOPROLOL TARTRATE 50 MG TAB PEG SCH ×4 (00:02→22:59)
[2017-06-24] MEDS: MEROPENEM INJ 1,000 MG in SODIUM CHLORIDE 0.9% INJ 100 ML IV SCH (04:53)
[2017-06-24] MEDS: BACLOFEN 20 MG TAB G-TUBE SCH ×3 (08:00→18:42)
[2017-06-24] MEDS: levETIRAcetam 500 MG/5 ML UDC G-TUBE SCH ×3 (08:00→22:58)
[2017-06-24] MEDS: LORATADINE 10 MG TAB G-TUBE SCH (08:01)
[2017-06-24] MEDS: SODIUM CHLORIDE 0.9% FLUSH 10 ML FLUSH IV FLUSH SCH ×2 (08:01→21:00)
[2017-06-24] MEDS: FAMOTIDINE 20 MG TAB PEG SCH (08:01)
[2017-06-24] MEDS ORDERED: CEFTOLOZANE TAZOBACTAM IV SCH ×2 (10:00)
[2017-06-24] MEDS ORDERED: NS IV SCH ×2 (10:00)
[2017-06-24] MEDS: SODIUM CHLOR 0.9% 1000 ML INJ 1,000 ML IV SCH ×2 (11:41→23:00)
[2017-06-24] MEDS ORDERED: MISCELLANEOUS PHARMACY INFORMATION XX PRN (17:00)
[2017-06-24] MEDS ORDERED: ASP: Documented ESBL, MDR A baumannii or P. aeruginosa PRN (17:00)
--- NOTE | 2017-06-24 17:00 | HHI.IDPN ---
Subjective Subjective Remarks doing better less secretions afebrile He grew XDR PSAE R imipenem Antibiotics zerbaxa Allergies: Coded Allergies: haloperidol (Unverified Adverse Reaction, Severe, Seizures, 06/18/17) Objective . Vital Signs Date Time Temp Pulse Resp B/P (MAP) Pulse Ox O2 Delivery O2 Flow Rate FiO2 06/24/17 16:34 98.0 77 20 138/74 (95) 100 06/24/17 11:51 99.0 67 20 134/77 (96) 99 06/24/17 09:41 98 T-piece 35 06/24/17 08:04 98.6 60 20 134/63 (86) 100 06/24/17 04:21 97.7 62 18 92/50 (64) 98 06/24/17 00:37 98.1 79 18 111/56 (74) 100 06/23/17 20:51 97.8 54 18 107/59 (75) 98 06/23/17 17:34 98 T-piece 6.00 35 06/24/17 06/24/17 06/25/17 15:00 23:00 07:00 Intake Total 822 ml Output Total 1000 ml Balance -178 ml Tube Feeding 822 ml Output Urine Total 1000 ml . Laboratory Tests Test 06/23/17 19:46 White Blood Count 3.3 TH/MM3 Red Blood Count 4.10 MIL/MM3 Hemoglobin 12.6 GM/DL Hematocrit 37.9 % Mean Corpuscular Volume 92.3 FL Mean Corpuscular Hemoglobin 30.7 PG Mean Corpuscular Hemoglobin Concent 33.2 % Red Cell Distribution Width 13.6 % Platelet Count 186 TH/MM3 Mean Platelet Volume 9.9 FL Neutrophils (%) (Auto) 38.3 % Lymphocytes (%) (Auto) 42.4 % Monocytes (%) (Auto) 16.4 % Eosinophils (%) (Auto) 2.5 % Basophils (%) (Auto) 0.4 % Neutrophils # (Auto) 1.3 TH/MM3 Lymphocytes # (Auto) 1.4 TH/MM3 Monocytes # (Auto) 0.5 TH/MM3 Eosinophils # (Auto) 0.1 TH/MM3 Basophils # (Auto) 0.0 TH/MM3 CBC Comment DIFF FINAL Differential Comment Laboratory Tests Test 06/23/17 19:46 Blood Urea Nitrogen 5 MG/DL Creatinine 0.65 MG/DL Random Glucose 70 MG/DL Total Protein 6.9 GM/DL Albumin 3.1 GM/DL Calcium Level 8.1 MG/DL Alkaline Phosphatase 83 U/L Aspartate Amino Transf (AST/SGOT) 27 U/L Alanine Aminotransferase (ALT/SGPT) 45 U/L Total Bilirubin 0.1 MG/DL Sodium Level 143 MEQ/L Potassium Level 3.5 MEQ/L Chloride Level 109 MEQ/L Carbon Dioxide Level 25.5 MEQ/L Anion Gap 9 MEQ/L Estimat Glomerular Filtration Rate 175 ML/MIN Total Creatine Kinase 652 U/L Creatine Kinase MB 2.6 NG/ML Creatine Kinase MB % 0.4 % Imaging CXR image reviewed: no infiltrate Last Impressions Chest X-Ray 06/21/17 0000 Signed Impressions: Service Date/Time: Wednesday, June 21, 2017 13:12 - CONCLUSION: 1. No acute abnormality or significant interval change. Sergey Alberto MD Abdomen/Pelvis CT 06/18/17 2312 Signed Impressions: Service Date/Time: June 02:37 - CONCLUSION: 1. No dilated loops of small large bowel. 2. Gastrostomy and jejunal tube in place. 3. There is a new non-consolidative infiltrate in the right costophrenic angle. Zachariah Jiménez MD Physical Exam CONSTITUTIONAL/GENERAL: This is an adequately nourished patient, in no apparent distress. TUBES/LINES/DRAINS: SKIN: No jaundice, rashes, or lesions. Skin temperature appropriate. Not diaphoretic. NECK: trach in place with less prominent secretions CARDIOVASCULAR: Regular rate and rhythm without murmurs, gallops, or rubs. No JVD. Peripheral pulses symmetric. RESPIRATORY/CHEST: Symmetric, unlabored respirations. Clear to auscultation. Breath sounds equal bilaterally. No wheezes, rales, or rhonchi. GASTROINTESTINAL: Abdomen soft, non-tender, nondistended. No hepato-splenomegaly , or palpable masses. No guarding. Bowel sounds present. PEG in place w/o e/o infection around it GENITOURINARY: Without palpable bladder distension. MUSCULOSKELETAL: Extremities without clubbing, cyanosis, or edema. No joint tenderness or effusion noted. No calf tenderness. No mottling or clubbing. LYMPHATICS: No palpable cervical or supraclavicular adenopathy. NEUROLOGICAL: Unresponsive; posturing to tactile stimulation eyes closed PSYCHIATRIC: unable to assess Assessment & Plan Remarks Chronic anoxic encephalopathy Sepsis: fever, leukocyutosis; pt did improve on meropenem, prior to Zerbaxa started - MDRO PSAE probably just a coloniser RLL PNA, on CT only Kleb pneumo, MDRO PSAE in sputum S zerbaxa, improved prior to zerbaxa started dc zerbaxa complete meropenem 1 more day and if doing OK d/c back to SNF off any abx dw pharmacist Ebony Ford MD Jun 24, 2017 17:00
[2017-06-24] MEDS ORDERED: MEROPENEM INJ 1,000 MG in SODIUM CHLORIDE 0.9% INJ 100 ML IV SCH (18:00)
--- NOTE | 2017-06-24 18:20 | HHI.PR ---
Subjective Remarks Patient is non-verbal. 31M who was admitted on 06-19-17 for pseudomonas pneumonia spent some time in the ICU after developing seizures. Seizures were controlled on Ativan and Cerebyx. No changes. Objective Vital Signs Date Time Temp Pulse Resp B/P (MAP) Pulse Ox O2 Delivery O2 Flow Rate FiO2 06/24/17 18:01 100 T-piece 6.00 28 06/24/17 16:34 98.0 77 20 138/74 (95) 100 06/24/17 11:51 99.0 67 20 134/77 (96) 99 06/24/17 09:41 98 T-piece 35 06/24/17 08:04 98.6 60 20 134/63 (86) 100 06/24/17 04:21 97.7 62 18 92/50 (64) 98 06/24/17 00:37 98.1 79 18 111/56 (74) 100 06/23/17 20:51 97.8 54 18 107/59 (75) 98 I/O 06/23/17 06/23/17 06/23/17 06/24/17 06/24/17 06/24/17 07:00 15:00 23:00 07:00 15:00 23:00 Intake Total 1000 ml 1062 ml 796 ml 822 ml Output Total 550 ml 750 ml 1000 ml Balance 1000 ml 1062 ml 246 ml -750 ml -178 ml Intake Oral 0 ml IV Total 1000 ml 100 ml 796 ml Tube Feeding 812 ml 822 ml Tube Irrigant 150 ml Output Urine Total 550 ml 750 ml 1000 ml # Voids 3 # Bowel Movements 0 1 Result Diagram: 06/23/17194506/23/171945 Objective Remarks GENERAL: Vegetative state from h/o traumatic brain injury, normal weight SKIN: Warm and dry. HEAD: Normocephalic. EYES: No scleral icterus. No injection or drainage. Abnormal deviation (brain injury) NECK: Supple, trachea midline. No JVD or lymphadenopathy. Tracheostomy present with blow-by oxygen attached. CARDIOVASCULAR: Regular rate and rhythm without murmurs, gallops, or rubs. RESPIRATORY: Breath sounds equal bilaterally. Fine crackles in RLL. No accessory muscle use. GASTROINTESTINAL: Abdomen soft, non-tender, nondistended. MUSCULOSKELETAL: No cyanosis, or edema. BACK: Nontender without obvious deformity. No CVA tenderness. EXTREMITIES: no edema Assessment and Plan Problem List: (1) Pseudomonas pneumonia ICD Codes: J15.1 - Pneumonia due to Pseudomonas (2) Seizure ICD Codes: R56.9 - Unspecified convulsions (3) Permanent vegetative state ICD Codes: R40.3 - Persistent vegetative state Status: Acute Assessment and Plan Pseudomonas Pneumonia - Meropenem per ID - Not distressed at this time - Follow CBC Seizures & Rhabdomyolysis - Seizures appear controlled at this time - Will follow up elevated CPK and Cr level, hydrate further if indicated Persistent Vegetative state - Chronic, no changes DVT Prophylaxis - Eliquis Discharge Planning - If facility will accept him back with pseudomonas PNA on IV antibiotics, he may be discharged to their care. Daren Mckeon MD Jun 24, 2017 18:20
[2017-06-25 01:14] VITALS: BP 106/55; PULSE 57; RESP 18; TEMP 98; O2SAT 99
[2017-06-25] MEDS: MEROPENEM INJ 1,000 MG in SODIUM CHLORIDE 0.9% INJ 100 ML IV SCH ×2 (02:14→10:06)
[2017-06-25 05:19] VITALS: BP 106/60; PULSE 60; RESP 18; TEMP 98.4; O2SAT 99
[2017-06-25] MEDS: hydrALAZINE HCL 100 MG TAB PEG SCH ×2 (06:00→14:00)
[2017-06-25] MEDS: FOSPHENYTOIN SODIUM 100 MG PE/2 ML VIAL IV SCH (06:30)
[2017-06-25] MEDS: HYOSCYAMINE 0.125 MG TAB PEG SCH ×3 (06:30→12:00)
[2017-06-25] MEDS: SODIUM CHLOR 0.9% 1000 ML INJ 1,000 ML IV SCH (07:36)
[2017-06-25 08:00] VITALS: BP 155/67; PULSE 73; RESP 18; TEMP 98.5; O2SAT 99
[2017-06-25] MEDS: SODIUM CHLORIDE 0.9% FLUSH 10 ML FLUSH IV FLUSH SCH (09:00)
[2017-06-25 09:47] LABS: AUTOMATED NEUTROPHIL # 1.8 TH/MM3 (1.8-7.7); BASOPHIL % 0.3 % (0.0-2.0); EOSINOPHIL # 0.1 TH/MM3 (0-0.4); EOSINOPHIL % 2.1 % (0.0-4.0); LYMPH % 33.1 % (9.0-44.0); LYMPHOCYTE # 1.1 TH/MM3 (1.0-4.8); MEAN CELL VOLUME 92.9 FL (80.0-100.0); MEAN CORPUSCULAR HEMOGLOBIN 30.7 PG (27.0-34.0); MEAN CORPUSCULAR HGB CONC 33.1 % (32.0-36.0); MONO % 12.8 % (0.0-8.0); NEUT % 51.7 % (16.0-70.0); PLATELET COUNT 158 TH/MM3 (150-450); RED BLOOD COUNT 3.98 MIL/MM3 (4.50-5.90); RED CELL DISTRIBUTION WIDTH 13.4 % (11.6-17.2); WHITE BLOOD COUNT 3.4 TH/MM3 (4.0-11.0)
[2017-06-25 09:50] VITALS: O2SAT 100
[2017-06-25 09:54] LABS: HEMO FLAGS AUTO DIFF
[2017-06-25] MEDS: levETIRAcetam 500 MG/5 ML UDC G-TUBE SCH (10:06)
[2017-06-25 10:08] LABS: ALT (GPT) 160 U/L (12-78); ANION GAP 9 MEQ/L (5-15); AST (GOT) 93 U/L (15-37); BICARBONATE 24.5 MEQ/L (21.0-32.0); BLOOD UREA NITROGEN 6 MG/DL (7-18); CHLORIDE 107 MEQ/L (98-107); GLOMERULAR FILTRATION RATE 203 ML/MIN (>89); POTASSIUM 3.6 MEQ/L (3.5-5.1); SODIUM (NA) 140 MEQ/L (136-145)
[2017-06-25] MEDS: FAMOTIDINE 20 MG TAB PEG SCH (10:11)
[2017-06-25] MEDS: LORATADINE 10 MG TAB G-TUBE SCH (10:11)
[2017-06-25] MEDS: BACLOFEN 20 MG TAB G-TUBE SCH ×2 (10:11→13:00)
[2017-06-25] MEDS: APIXABAN 5 MG TABLET NG SCH (10:12)
[2017-06-25] MEDS: HYOSCYAMINE SOLN 0.125 MG/ML 15 ML BTL PO PRN (10:13)
[2017-06-25 10:19] LABS: ALKALINE PHOSPHATASE 100 U/L (45-117); CREATINE KINASE 360 U/L (39-308); TOTAL BILIRUBIN ADULT 0.1 MG/DL (0.2-1.0)
[2017-06-25] MEDS: METOPROLOL TARTRATE 50 MG TAB PEG SCH (10:22)
[2017-06-25 10:39] LABS: CKMB 2.5 NG/ML (0.5-3.6)
[2017-06-25] MEDS ORDERED: OXYC-392 PO (11:39)
[2017-06-25] MEDS ORDERED: PHEN125S PO (11:42)
[2017-06-25 11:58] LABS: SCAN/DIFF AUTO DIFF CONFIRMED
[2017-06-25 12:01] VITALS: BP 117/68; PULSE 56; RESP 18; TEMP 98.6; O2SAT 99
--- NOTE | 2017-06-25 15:06 | RADRPT ---
EXAM DATE/TIME: 06/25/2017 14:20 [facility] COMPARISON: CHEST SINGLE AP, June 21, 2017, 13:12. INDICATIONS : Congestion. MEDICAL HISTORY : Anoxic brain injury SURGICAL HISTORY : Tracheostomy. ENCOUNTER: Subsequent ACUITY: 4 - 6 days PAIN SCORE: Non-responsive. LOCATION: Bilateral chest FINDINGS: Stable tracheostomy. No significant focal pleural or parenchymal opacities. Cardiomediastinal contour s are stable. Bony thorax is intact. Gastrostomy catheter is noted in the stomach. CONCLUSION: 1. No acute abnormality or significant interval change. Sergey Alberto MD on June 25, 2017 at 15:02 Board Certified Radiologist. This report was verified electronically.
--- NOTE | 2017-06-25 23:58 | HHI.DS ---
Discharge Summary Admission Date Jun 19, 2017 at 04:43 Discharge Date: Jun 25, 2017 Admitting Diagnosis Pneumonia/Sepsis. (1) Sepsis ICD Code: A41.9 - Sepsis, unspecified organism Status: Resolved (2) Healthcare-associated pneumonia ICD Code: J18.9 - Pneumonia, unspecified organism Status: Acute (3) Permanent vegetative state ICD Code: R40.3 - Persistent vegetative state Status: Acute (4) History of DVT (deep vein thrombosis) ICD Code: Z86.718 - Personal history of other venous thrombosis and embolism Status: Acute (5) Hypoxic encephalopathy ICD Code: G93.1 - Anoxic brain damage, not elsewhere classified Status: Acute Procedures no invasive procedures Brief History - From Admission 31-year-old male with a past medical history of traumatic brain injury and persistent vegetative state, status post trach/PEG, history of DVT on Eliquis, recurrent pneumonia/sepsis and seizure disorder was brought from his detention via EMS for evaluation of a fever. The patient was recently treated for urinary tract infection. He also was recently diagnosed with ileus. Chest x- ray within normal limits. CT of the abdomen/pelvis showed no dilated loops of bowel but was significant for a new nonconsolidated infiltrate in the right costophrenic angle. WBC 15.7. Lactic acid initially 2.3. Febrile to 101.0 in the emergency department. Lab values also significant for a CK of 1530. CBC/BMP: 06/25/17 0910 06/25/17 0910 Significant Findings Laboratory Tests Test 06/23/17 19:46 06/25/17 09:10 White Blood Count 3.3 TH/MM3 (4.0-11.0) 3.4 TH/MM3 (4.0-11.0) Red Blood Count 4.10 MIL/MM3 (4.50-5.90) 3.98 MIL/MM3 (4.50-5.90) Hemoglobin 12.6 GM/DL (13.0-17.0) 12.2 GM/DL (13.0-17.0) Hematocrit 37.9 % (39.0-51.0) 37.0 % (39.0-51.0) Monocytes (%) (Auto) 16.4 % (0.0-8.0) 12.8 % (0.0-8.0) Neutrophils # (Auto) 1.3 TH/MM3 (1.8-7.7) Blood Urea Nitrogen 5 MG/DL (7-18) 6 MG/DL (7-18) Random Glucose 70 MG/DL (74-106) 109 MG/DL (74-106) Albumin 3.1 GM/DL (3.4-5.0) 2.9 GM/DL (3.4-5.0) Calcium Level 8.1 MG/DL (8.5-10.1) 7.9 MG/DL (8.5-10.1) Total Bilirubin 0.1 MG/DL (0.2-1.0) 0.1 MG/DL (0.2-1.0) Chloride Level 109 MEQ/L (98-107) Total Creatine Kinase 652 U/L (39-308) 360 U/L (39-308) Creatinine 0.57 MG/DL (0.60-1.30) Aspartate Amino Transf (AST/SGOT) 93 U/L (15-37) Alanine Aminotransferase (ALT/SGPT) 160 U/L (12-78) Imaging Last Impressions Chest X-Ray 06/25/17 0000 Signed Impressions: Service Date/Time: Sunday, June 25, 2017 14:20 - CONCLUSION: 1. No acute abnormality or significant interval change. Sergey Alberto MD Abdomen/Pelvis CT 06/18/17 2312 Signed Impressions: Service Date/Time: June 02:37 - CONCLUSION: 1. No dilated loops of small large bowel. 2. Gastrostomy and jejunal tube in place. 3. There is a new non-consolidative infiltrate in the right costophrenic angle. Zachariah Jiménez MD PE at Discharge GENERAL: NAD with chronic trach/nonverbal SKIN: Warm and dry. HEAD: Normocephalic. EYES: No scleral icterus. No injection or drainage. NECK: Supple, trachea midline. No JVD. CARDIOVASCULAR: Regular rate and rhythm without murmurs, gallops, or rubs. RESPIRATORY: Breath sounds equal bilaterally. chronic trach GASTROINTESTINAL: Abdomen soft, non-tender, nondistended. MUSCULOSKELETAL: contractures BACK: Nontender without obvious deformity. No CVA tenderness. Pt update on day of discharge no acute changes per nursing. Patient continues noncommunicative. Hospital Course Patient presented with sepsis, fever, leukocytosis. CT abdomen with no acute findings, however right lower lobe pneumonia. Sputum cultures grew MDR pseudomonas, as well as Klebsiella. Infectious disease was consult at. Patient improved on meropenem, and completed course as per infectious disease.. Patient was also found to have rhabdomyolysis on admission with CK 1530, improving with treatment of infection, as well as IV fluids. Patient will need to follow-up with pulmonology. Patient also was found to have a seizure on 06/21. Resolved with addition of phenytoin. This was added In addition to Keppra. Patient will need phenytoin level checked in 1 week, as well as follow with neurology.. For problem-based summary from most recent progress note, please see below. Pseudomonas Pneumonia - Meropenem per ID - Not distressed at this time - Follow CBC Seizures & Rhabdomyolysis - Seizures appear controlled at this time - Will follow up elevated CPK and Cr level, hydrate further if indicated Persistent Vegetative state - Chronic, no changes DVT Prophylaxis - Eliquis Discharge Planning - If facility will accept him back with pseudomonas PNA on IV antibiotics, he may be discharged to their care. Pt Condition on Discharge: Good Discharge Disposition: Discharge to SNF Discharge Time: > 30 minutes Discharge Instructions DIET: Follow Instructions for: On Tube Feeding Activities you can perform: Regular-No Restrictions Follow up Referrals: Neurology - 1 Week PCP Follow-up - 1 Week with mJ Torres MD Pulmonology - 2 Weeks with Carlos Walls MD New Medications: Phenytoin Liq (Phenytoin Liq) 125 Mg/5 Ml Sapphire 100 MG PO Q12HR for Control Seizures, #237 ML 0 Refills Continued Medications: Acetaminophen (Tylenol) 325 Mg Tab 650 MG PO Q6H PRN for INCREASED TEMPERATURE, TAB 0 Refills Amlodipine (Norvasc) 10 Mg Tab 10 MG PO DAILY for Blood Pressure Management, #30 TAB 0 Refills Apixaban (Eliquis) 5 Mg Tab 5 MG PO BID for Blood Clot Prevention, #60 TAB 0 Refills Atropine Opth Drops (Atropine Opth Drops) 1% Soln 1 DROP SL Q12HR PRN for For mild/moderate secretions, #2 ML 0 Refills Baclofen (Baclofen) 20 Mg Tab 20 MG G-TUBE TID for Muscle Spasm, #90 TAB [address] (Bisacodyl EC) 5 Mg Tabec 5 MG PO DAILY PRN for CONSTIPATION, #60 TAB 0 Refills Famotidine (Famotidine) 20 Mg Tab 20 MG PO DAILY, #60 TAB 0 Refills Hydralazine (Hydralazine) 100 Mg Tab 50 MG PO Q8HR for Blood Pressure Management, TAB 0 Refills Take with meals Hyoscyamine (Hyoscyamine) 0.125 Mg Tab 0.25 MG PO Q4H for Gastrointestinal disorders, TAB 0 Refills Ipratropium-Albuterol Neb (Duoneb) 0.5-2.5 Mg/3 Ml Neb 1 NEBULE INH Q4HR NEB for SHORTNESS OF BREATH, #120 NEBULE 0 Refills Levetiracetam (Keppra) 1,000 Mg Tab 1000 MG PO BID for Control Seizures, #60 TAB 0 Refills Loratadine Liq (Claritin Liq) 5 Mg/5 Ml Liq 5 MG G-TUBE DAILY for Allergy Management, #1 BOTTLE 0 Refills Lorazepam (Ativan) 1 Mg Tab 1 MG G-TUBE Q4H PRN for for severe anxiety or dyspnea, #60 TAB 0 Refills Lorazepam (Ativan) 0.5 Mg Tab 0.5 MG PO DAILY PRN for ANXIETY AND/OR AGITATION, #60 TAB 0 Refills Metoprolol Tartrate (Lopressor) 50 Mg Tab 50 MG PO BID, #60 TAB 0 Refills Oxycodone (Oxycodone) 5 Mg Tab 5 MG PO Q6H PRN for PAIN, #12 TAB 0 Refills (This prescription has been renewed) Potassium Chloride Liq (Potassium Chloride Liq) 20 Meq/15 Ml Soln 20 MEQ PO BID for Electrolyte Replacement, ML 0 Refills Ranitidine (Ranitidine) 150 Mg Tab 150 MG PO BID for Heartburn Management, #60 TAB 0 Refills Discontinued Medications: Amoxicillin-Clavulanate (Augmentin) 875-125 Mg Tab 1 TAB PO BID for Infection for 10 Days, #20 TAB 0 Refills Guaifenesin-Codeine Liq (Guaifenesin AC Liq) 100-10 Mg/5 Ml Syrp 10 ML PO Q6H PRN for COUGH, #1 BOTTLE 0 Refills Zia Burns MD Jun 25, 2017 23:58
== END 2017-06-25 16:01 | DRG 871 ==
LOC: NEPE 22:59 → NEDA 06-19 04:43 → NEDH 06-19 10:24 → N07A 06-19 12:26 → N03B 06-21 00:33 → N05A 06-22 19:50
PROVIDERS: ADMIT Internal Medicine; ATTEND Internal Medicine
DX: A41.9 Sepsis, unspecified organism (principal); J15.1 Pneumonia due to Pseudomonas; R40.3 Persistent vegetative state; G93.1 Anoxic brain damage, not elsewhere classified; J96.10 Chronic respiratory failure, unspecified whether with hypoxia or hypercapnia; G40.919 Epilepsy, unspecified, intractable, without status epilepticus; M62.82 Rhabdomyolysis; K56.7 Ileus, unspecified; R63.0 Anorexia; G40.909 Epilepsy, unspecified, not intractable, without status epilepticus; E11.9 Type 2 diabetes mellitus without complications; F41.9 Anxiety disorder, unspecified; I10 Essential (primary) hypertension; Y95 Nosocomial condition; Z79.01 Long term (current) use of anticoagulants; Z86.14 Personal history of Methicillin resistant Staphylococcus aureus infection; Z86.718 Personal history of other venous thrombosis and embolism; Z87.820 Personal history of traumatic brain injury; Z87.440 Personal history of urinary (tract) infections; Z93.0 Tracheostomy status; Z93.1 Gastrostomy status
CPT/HCPCS: 71010; 74177; 80048; 80053; 81001; 82550; 82552; 83605; 83690; 83735; 84100; 84484; 85025; 85610; 85730; 87040; 87070; 87077; 87086; 87186; 87205; 87804; 94640; 94664; 95819; 96365; 96375; A7520; J0695; J2060; J2185; J2250; J2270; J2543; J3370; J3475; J7030; J7040; J7050; Q2009; Q9967